=== PATIENT | female | born 1960 | race Caucasian/White ===

== ENCOUNTER → 2018-03-17 11:01 | Outpatient (CLI) | payer OTHER, SELFPAY ==
[2018-03-17 12:48] LABS: Anion Gap 7 (5-15); BUN 10 mg/dL (7-18); BUN/Creat Ratio 13.4 RATIO (10-20); Calcium,Total 9.2 mg/dL (8.5-10.1); Chloride 104 mmol/L (98-107); Creatinine, Serum 0.75 mg/dL (0.55-1.02); EST Glomerular Filtration Rate 85 mL/min (>60); Est Glom Filt Rate - Afr Amer 102 mL/min (>60); Glucose 233 mg/dL (74-106); Potassium 3.6 mmol/L (3.5-5.1); Sodium Level 139 mmol/L (136-145); Thyroid Stim Hormone (TSH) 1.32 uIU/mL (0.358-3.74)
== END ==
PROVIDERS: Visit Provider Psychiatry & Neurology Psychiatry
DX: Z79.899 Other long term (current) drug therapy (principal)
CPT/HCPCS: 36415; 80048; 80178; 82140; 84443

== ENCOUNTER → 2018-05-02 14:48 | Outpatient (CLI) | payer OTHER, SELFPAY ==
--- NOTE | 2018-05-02 14:48 | DT_ITS ---
This patient was seen during an EMR downtime April 28, 2018 - May 05, 2018. This patient may have a combination of paper and electronic documentation or all paper documentation. All documentation is viewable within the e-chart portion of [employer] for each patient visit.
[2018-05-02 19:21] LABS: Hematocrit 34.5 % (37-47); Hemoglobin 10.6 g/dl (12.0-15.0); Mean Corp Hgb Conc 30.7 g/gl (32-36); Mean Corpuscular Hgb 26.7 pg (27.0-32.0); Mean Corpuscular Volume 86.9 fL (81-99); Mean Platelet Vol. 10.2 fl (6.2-12.0); Neutrophil % 63.8 % (47-70); POSITIVE COUNT NO; POSITIVE DIFFERENTIAL NO; POSITIVE MORPHOLOGY NO; Platelet Count 128 K/mm3 (150-450); RBC Distribution Width CV 16.9 % (11.6-14.6); RBC Distribution Width SD 52.4 fl (35.1-43.9); Red Blood Count 3.97 M/mm3 (4.2-5.4)
[2018-05-02 19:22] LABS: Absolute Lymphocyte Count 1.33 X10^3/ul (0.83-4.51); Absolute Neutrophil Count 3.2 X10^3/uL (2.0-7.7); Basophil# 0.02 X10^3/uL; Basophil% 0.4 % (0-1); Eosinophil# 0.11 X10^3/uL; Eosinophils% 2.2 % (0-5); Lymphocyte # 1.33 X10^3/ul (4.0); Lymphocyte % 26.4 % (19-41); Monocyte# 0.34 X10^3/uL; Monocyte% 6.8 % (0-10); Neutrophil # 3.21 X10^3/uL (2.7-7.7)
[2018-05-05 18:01] LABS: ALB/GLOB Ratio 0.9 RATIO (0.9-2.4); AST(SGOT) 35 U/L (15-37); Alanine Aminotransfer ALT/SGPT 30 U/L (13-56); Albumin, Serum 3.9 g/dL (3.2-5.0); Alkaline Phosphatase 108 U/L (45-117); Anion Gap 8 (5-15); BUN 13 mg/dL (7-18); BUN/Creat Ratio 19.7 RATIO (10-20); Calcium,Total 9.4 mg/dL (8.5-10.1); Chloride 106 mmol/L (98-107); Creatinine, Serum 0.66 mg/dL (0.55-1.02); EST Glomerular Filtration Rate 98 mL/min (>60); Est Glom Filt Rate - Afr Amer 119 mL/min (>60); Globulin 4.3 g/dL (2.2-4.2); Glucose 184 mg/dL (74-106); Protein, Total 8.2 g/dL (6.4-8.2); Sodium Level 142 mmol/L (136-145)
== END ==
PROVIDERS: Family Provider Family Medicine; PCP Family Medicine; Visit Provider Internal Medicine Rheumatology
DX: L40.59 Other psoriatic arthropathy (principal); M79.7 Fibromyalgia; R76.8 Other specified abnormal immunological findings in serum; L40.8 Other psoriasis; M21.40 Flat foot [pes planus] (acquired), unspecified foot; K21.9 Gastro-esophageal reflux disease without esophagitis; K76.0 Fatty (change of) liver, not elsewhere classified; I10 Essential (primary) hypertension; E11.9 Type 2 diabetes mellitus without complications; I48.0 Paroxysmal atrial fibrillation; F31.9 Bipolar disorder, unspecified; N39.46 Mixed incontinence
CPT/HCPCS: 36415; 80053; 85025

== ENCOUNTER → 2018-08-20 10:31 | Outpatient (CLI) | payer OTHER, SELFPAY ==
[2018-08-20 12:20] LABS: Absolute Lymphocyte Count 1.31 X10^3/ul (0.83-4.51); Absolute Neutrophil Count 3.1 X10^3/uL (2.0-7.7); Basophil# 0.01 X10^3/uL; Basophil% 0.2 % (0-1); Eosinophil# 0.13 X10^3/uL; Eosinophils% 2.7 % (0-5); Hematocrit 36.5 % (37-47); Hemoglobin 11.8 g/dl (12.0-15.0); Lymphocyte # 1.31 X10^3/ul (4.0); Lymphocyte % 26.9 % (19-41); Mean Corp Hgb Conc 32.3 g/gl (32-36); Mean Corpuscular Hgb 29.4 pg (27.0-32.0); Monocyte# 0.29 X10^3/uL; Neutrophil # 3.12 X10^3/uL (2.7-7.7); Platelet Count 122 K/mm3 (150-450); RBC Distribution Width CV 15.3 % (11.6-14.6); RBC Distribution Width SD 50.4 fl (35.1-43.9); Red Blood Count 4.01 M/mm3 (4.2-5.4); White Blood Count 4.9 K/mm3 (4.4-11.0)
[2018-08-20 12:23] LABS: POSITIVE COUNT NO; POSITIVE DIFFERENTIAL NO; POSITIVE MORPHOLOGY NO
[2018-08-20 12:34] LABS: AST(SGOT) 30 U/L (15-37); Alanine Aminotransfer ALT/SGPT 28 U/L (13-56); Alkaline Phosphatase 123 U/L (45-117); Anion Gap 8 (5-15); BUN 11 mg/dL (7-18); BUN/Creat Ratio 15.9 RATIO (10-20); Calcium,Total 9.5 mg/dL (8.5-10.1); Chloride 106 mmol/L (98-107); Creatinine, Serum 0.69 mg/dL (0.55-1.02); EST Glomerular Filtration Rate 92 mL/min (>60); Est Glom Filt Rate - Afr Amer 112 mL/min (>60); Globulin 4.2 g/dL (2.2-4.2); Glucose 142 mg/dL (74-106); Protein, Total 8.2 g/dL (6.4-8.2); Sodium Level 140 mmol/L (136-145)
== END ==
PROVIDERS: Family Provider Family Medicine; PCP Family Medicine; Referring Provider Internal Medicine Rheumatology; Visit Provider Internal Medicine Rheumatology
DX: L40.59 Other psoriatic arthropathy (principal); M79.7 Fibromyalgia; R76.8 Other specified abnormal immunological findings in serum; L40.8 Other psoriasis; M25.512 Pain in left shoulder; M21.40 Flat foot [pes planus] (acquired), unspecified foot; K21.9 Gastro-esophageal reflux disease without esophagitis; K76.0 Fatty (change of) liver, not elsewhere classified; I10 Essential (primary) hypertension; E11.9 Type 2 diabetes mellitus without complications; I48.0 Paroxysmal atrial fibrillation; F31.9 Bipolar disorder, unspecified; N39.46 Mixed incontinence
CPT/HCPCS: 36415; 80053; 85025

== ENCOUNTER 2018-10-20 13:36 | Emergency (ER) | payer OTHER, SELFPAY ==
[2018-10-20 13:36] VITALS: BP 163/72; PULSE 57; RESP 16; TEMP 35.9; O2SAT 97; BMI 40.7
--- NOTE | 2018-10-20 14:26 | CT_ITS ---
STUDY: CT BRAIN WITHOUT CONTRAST REASON FOR EXAM: Female, 58 years old. Headaches. Vomiting. Decreased level of consciousness. History of recent subdural hematoma. RADIATION DOSAGE (If Supplied By Facility): CTDIvol = ( 60.81 ) mGy, DLP = ( 1997.33 ) mGycm TECHNIQUE: Transaxial CT imaging of the brain was performed without administration of intravenous contrast material. Individualized dose optimization techniques were used for this CT. COMPARISON: None. FINDINGS: There is evidence of an acute epidural hematoma measuring 2.7 cm by 1.1 cm overlying the posterior left parietal occipital lobe. There is also evidence of a small amount of subarachnoid bleed in the right sylvian fissure. Also evidence of a tentorial subdural hematoma. Normal soft tissue structures. There is hyperostosis frontalis internus. There is evidence of a decreased sulcal markings suggests a possible increased intracranial pressure. Normal white matter tracts of the cerebral hemispheres. Decreased attenuation in the left basal ganglion. Ischemic changes should be ruled out. Normal brainstem. Normal cerebellum. Normal visualized paranasal sinuses. CT/Brain/Head without Contrast IMPRESSION: There is evidence of an acute epidural hematoma overlying the left posterior parietal occipital lobes measuring 1.1 cm x 2.7 cm. There is evidence of a subdural of the tentorium as well as subarachnoid hemorrhage. Decreased attenuation is seen in the left basal ganglion. Changes should BE ruled out. Findings suggestive of increased intracranial pressure. N.B. : The above information has been verbally conveyed by Ankur Ferrara MD to Dylon Owens MD, on 10/20/2018 15:14:10 (ET). Electronically Signed: Ankur Ferrara MD at 15:15 EST Tel [phone], Service support ,
[2018-10-20] MEDS: Ondansetron 4 MG/2 ML Vial IV (14:32)
[2018-10-20 14:43] LABS: Absolute Lymphocyte Count 1.42 X10^3/ul (0.83-4.51); Absolute Neutrophil Count 5.9 X10^3/uL (2.0-7.7); Eosinophils% 1.3 % (0-5); Hematocrit 39.5 % (37-47); Hemoglobin 13.1 g/dl (12.0-15.0); Lymphocyte # 1.42 X10^3/ul (4.0); Lymphocyte % 18.2 % (19-41); Mean Corp Hgb Conc 33.2 g/gl (32-36); Mean Corpuscular Hgb 29.3 pg (27.0-32.0); Mean Corpuscular Volume 88.4 fL (81-99); Mean Platelet Vol. 9.9 fl (6.2-12.0); Monocyte% 5.1 % (0-10); Neutrophil # 5.88 X10^3/uL (2.7-7.7); Neutrophil % 75.3 % (47-70); POSITIVE COUNT NO; POSITIVE DIFFERENTIAL NO; POSITIVE MORPHOLOGY NO; Platelet Count 131 K/mm3 (150-450); RBC Distribution Width CV 13.9 % (11.6-14.6); RBC Distribution Width SD 44.5 fl (35.1-43.9); Red Blood Count 4.47 M/mm3 (4.2-5.4); White Blood Count 7.8 K/mm3 (4.4-11.0)
[2018-10-20 14:48] LABS: Anion Gap 8 (5-15); BUN 10 mg/dL (7-18); BUN/Creat Ratio 16.8 RATIO (10-20); Calcium,Total 9.8 mg/dL (8.5-10.1); Chloride 107 mmol/L (98-107); EST Glomerular Filtration Rate 110 mL/min (>60); Est Glom Filt Rate - Afr Amer 133 mL/min (>60); Estimated Creatinine Clearance 90.84 ml/min; Glucose 143 mg/dL (74-106); Potassium 3.8 mmol/L (3.5-5.1); Sodium Level 139 mmol/L (136-145)
[2018-10-20 15:28] VITALS: BP 119/53; PULSE 54; RESP 17; O2SAT 96
[2018-10-20 15:33] LABS: International Normalized Ratio 1.1
[2018-10-20 15:34] LABS: Partial Thromboplast Time 34.3 Seconds (24.1-36.2)
[2018-10-20] MEDS: Mannitol 50gm/250ml 50 GM in Premixed Bag 1 BAG IV (15:51)
[2018-10-20 16:30] VITALS: BP 114/66; PULSE 59; RESP 17; O2SAT 96
[2018-10-20 16:42] VITALS: BP 114/66; PULSE 56; RESP 18; TEMP 36.1; O2SAT 97
[2018-10-20 17:17] VITALS: BP 105/46; PULSE 57; RESP 17; O2SAT 95
--- NOTE | 2018-10-20 17:29 | ED.RN ---
UNIT AT [facility] CONTACTED AND INFORMED OF PT DEPARTING TO [facility].
--- NOTE | 2018-11-02 06:57 | ED.VISSUMM ---
- ER Visit Summary Date of Service: 11/02/18 Chief Complaint: Severe headache and decreased level of consciousness History of Present Illness: The patient is a 58 F who was seen on the date of service October 20, 2018. Patient's main complaint is severe headache. Daughter is concerned because she is not as alert and active. Week prior she was admitted to [facility] for a subdural hematoma. She had a subdural of the tentorium. Repeat CT revealed no change and she was discharged to home. The evening prior to today's visit patient was seen at another facility. She had a CAT scan and daughter states they were told there was no change. Patient is not a good informant. She denied double vision or loss of vision. She denied change in her vision. She denies trouble with speech or swallowing. She denies chest pain, orthopnea, PND or dyspnea on exertion. She denies shortness of breath or cough. She has no auditory symptoms. She denies congestion, postnasal drainage or rhinorrhea. She does complain of mild neck pain. She denies neck stiffness. She does report nausea without vomiting diarrhea. She denied urologic symptoms. Daughter states she is having difficulty ambulating. Physical Examination: Vital signs noted and blood pressure is elevated 163/70. Head is atraumatic normocephalic. Pupils equal round reactive paradoxic muscle intact. There is no subconjunctival hemorrhage noted. Sclerae nonicteric. There is no hemotympanum. There is no CSF otorrhea or rhinorrhea. Neck is supple. Heart is regular. Lungs are clear to auscultation with room air bilaterally. Abdomen is soft nontender. Bowel sounds are present normal. Back is nontender. Examination of the lower extremity and upper extremities unremarkable. Skin reveals no rash or evidence of trauma. She is not alert nor she oriented. Reflexes are not normal. She has bilateral Babinski sign. Sensation and motor are intact. Finger-nose to finger was performed adequately. She was not ambulated. Affect is flat Test Results: CBC unremarkable. Glucose elevated 143. CT reveals an epidural hematoma, a sub-dural hematoma the tentorium, a subarachnoid hemorrhage and a left basal ganglion infarct. Emergency Department Course and Treatment: Because of patient's complaint of severe headache change in mental status and history of frequent falls and recent diagnosis of subdural hematoma a CT of the head was obtained. Patient was made n.p.o. Appropriate blood work was obtained. Treatment Plan: After reviewing CT and determining that the epidural and subarachnoid hemorrhage or new [facility] was contacted. Spoke with the nurse at transfer center. Eventually spoke with the neurosurgeon/trauma surgeon who was aware of her and accepted her. Because of evidence of increased intracranial pressure she did receive 0.5 mg/kg of mannitol. Disposition: Transfer neuro ICU [facility] Impression: 1. Epidural hematoma 2. Subarachnoid hemorrhage 3. Left basal ganglion infarct, new finding 4. Tentorial subdural hematoma, stable This note was generated with [employer] dictation software. It may contain incorrect words, spelling, and punctuation that were not noted in review of the chart prior to signing ED Disposition - Plan for ED Patient: Disposition: [facility] Chief Complaint: Nausea/Vomiting Referrals: Yandel Cabrera MD [Primary Care Provider] -
--- NOTE | 2018-11-02 07:03 | ED.DCSUM_ITS ---
- ER Visit Summary Date of Service: 11/02/18 Chief Complaint: Severe headache and decreased level of consciousness History of Present Illness: The patient is a 58 F who was seen on the date of service October 20, 2018. Patient's main complaint is severe headache. Daughter is concerned because she is not as alert and active. Week prior she was admitted to [facility] for a subdural hematoma. She had a subdural of the tentorium. Repeat CT revealed no change and she was discharged to home. The evening prior to today's visit patient was seen at another facility. She had a CAT scan and daughter states they were told there was no change. Patient is not a good informant. She denied double vision or loss of vision. She denied change in her vision. She denies trouble with speech or swallowing. She denies chest pain, orthopnea, PND or dyspnea on exertion. She denies shortness of breath or cough. She has no auditory symptoms. She denies congestion, postnasal drainage or rhinorrhea. She does complain of mild neck pain. She denies neck stiffness. She does report nausea without vomiting diarrhea. She denied urologic symptoms. Daughter states she is having difficulty ambulating. Physical Examination: Vital signs noted and blood pressure is elevated 163/70. Head is atraumatic normocephalic. Pupils equal round reactive paradoxic muscle intact. There is no subconjunctival hemorrhage noted. Sclerae nonicteric. There is no hemotympanum. There is no CSF otorrhea or rhinorrhea. Neck is supple. Heart is regular. Lungs are clear to auscultation with room air bilaterally. Abdomen is soft nontender. Bowel sounds are present normal. Back is nontender. Examination of the lower extremity and upper extremities unremarkable. Skin reveals no rash or evidence of trauma. She is not alert nor she oriented. Reflexes are not normal. She has bilateral Babinski sign. Sensation and motor are intact. Finger-nose to finger was performed adequately. She was not ambulated. Affect is flat Test Results: CBC unremarkable. Glucose elevated 143. CT reveals an epidural hematoma, a sub-dural hematoma the tentorium, a subarachnoid hemorrhage and a left basal ganglion infarct. Emergency Department Course and Treatment: Because of patient's complaint of severe headache change in mental status and history of frequent falls and recent diagnosis of subdural hematoma a CT of the head was obtained. Patient was made n.p.o. Appropriate blood work was obtained. Treatment Plan: After reviewing CT and determining that the epidural and subarachnoid hemorrhage or new [facility] was contacted. Spoke with the nurse at transfer center. Eventually spoke with the neurosurgeon/trauma surgeon who was aware of her and accepted her. Because of evidence of increased intracranial pressure she did receive 0.5 mg/kg of mannitol. Disposition: Transfer neuro ICU [facility] Impression: 1. Epidural hematoma 2. Subarachnoid hemorrhage 3. Left basal ganglion infarct, new finding 4. Tentorial subdural hematoma, stable This note was generated with [employer] dictation software. It may contain incorrect words, spelling, and punctuation that were not noted in review of the chart prior to signing ED Disposition - Plan for ED Patient: Disposition: [facility] Chief Complaint: Nausea/Vomiting Referrals: Yandel Cabrera MD [Primary Care Provider] -
--- OUTSIDE RECORDS SUMMARY | 2018-12-02 12:47 | XMS RPT_ITS ---
:1960 Author Organization OHIP Support Name Relationship Address Phone CHRISTINA GUERRERO Unavailable [address] Unavailable [place], [place] [phone] NOT GIVEN Unavailable Unavailable Unavailable DARVIN PLASCENCIA Unavailable Unavailable + CHRISTINA GUERRERO Unavailable [address] Unavailable [place], [place] [phone] NOT GIVEN Unavailable Unavailable Unavailable DARVIN PLASCENCIA Unavailable Unavailable + LEIGHA GARCIA Unavailable Unavailable + CHRISTINA GUERRERO Unavailable [address] + [place] [address] JOANNE FERGUSON Unavailable [address] + [place] [address] R Unavailable Unavailable Unavailable CHRISTINA GUERRERO Unavailable [address] Unavailable [place], [place] [phone] NOT GIVEN Unavailable Unavailable Unavailable DARVIN PLASCENCIA Unavailable Unavailable + CHRISTINA GUERRERO Unavailable [address] Unavailable [place], [place] [phone] NOT GIVEN Unavailable Unavailable Unavailable DARVIN PLASCENCIA Unavailable Unavailable + CHRISTINA GUERRERO Unavailable [address] Unavailable [place], [place] [phone] NOT GIVEN Unavailable Unavailable Unavailable DARVIN PLASCENCIA Unavailable Unavailable + CHRISTINA GUERRERO Unavailable [address] + [place] [address] JOANNE FERGUSON Unavailable [address] + [place] [address] R Unavailable Unavailable Unavailable CHRISTINA GUERRERO Unavailable [address] Unavailable [place], [place] [phone] NOT GIVEN Unavailable Unavailable Unavailable DARVIN PLASCENCIA Unavailable Unavailable + CHRISTINA GUERRERO Unavailable [address] Unavailable [place], [place] [phone] NOT GIVEN Unavailable Unavailable Unavailable DARVIN PLASCENCIA Unavailable Unavailable + CHRISTINA GUERRERO Unavailable [address] Unavailable [place], [place] [phone] NOT GIVEN Unavailable Unavailable Unavailable DARVIN PLASCENCIA Unavailable Unavailable + CHRISTINA GUERRERO Unavailable [address] + [place] [address] JOANNE FERGUSON Unavailable [address] + [place] [address] R Unavailable Unavailable Unavailable CHRISTINA GUERRERO Unavailable [address] + [place] [address] FERGUSON JOANNE Unavailable [address] + [place] [address] R Unavailable Unavailable Unavailable CHRISTINA GUERRERO Unavailable [address] Unavailable [place], [place] [phone] NOT GIVEN Unavailable [place] [address] DARVIN TOLBERT Unavailable Unavailable + Care Team Providers Name Role Phone Aryan Jean Attending Unavailable Primay Care Physicia, No Primary Care Unavailable Vellanki, Abigail Attending Unavailable Vellanki, Abigail Referring Unavailable [facility] Primary Care Unavailable Lucia, Abigail Attending Unavailable Lucia, Abigail Referring Unavailable [facility] Primary Care Unavailable [facility] Primary Care Unavailable Owens, Dylon Attending Unavailable WILLIAM WYNN DO Admitting Unavailable WILLIAM WYNN DO Attending Unavailable WILLIAM WYNN DO Primary Care Unavailable NO, DOCTOR ON Referring Unavailable NO, DOCTOR ON Consulting Unavailable ARYAN JEAN Admitting Unavailable ARYAN JEAN Attending Unavailable ARYAN JEAN [facility] Unavailable PROVIDER, UNKNOWN Consulting Unavailable BETH BYRD MD Admitting Unavailable RAYSA, BETH BARRON Attending Unavailable BETH BYRD MD Primary Care Un[facility] Unavailable PROVIDER, UNKNOWN Consulting Unavailable BETH BYRD MD Admitting Unavailable BRYCEIVBETH MCCLENDON MD Attending Unavailable BETH BYRD MD Primary Care Unavailable ELEAZAR, YANDEL Consulting Unavailable PROVIDER, UNKNOWN Consulting Unavailable BETH BYRD MD Admitting Unavailable BETH BYRD MD Attending Unavailable BETH BYRD MD Primary Care Unavailable ELEAZAR, YANDEL Consulting Unavailable PROVIDER, UNKNOWN Consulting Unavailable HABERBERGER, FCO M Admitting Unavailable HABERBERGER, FCO M Attending Unavailable ELEAZAR, YANDEL Referring Unavailable HABERBERGER, FCO M Primary Care Unavailable ELEAZAR, YANDEL Consulting Unavailable PROVIDER, UNKNOWN Consulting Unavailable JOHN FANG Admitting Unavailable JOHN FANG Attending Unavailable JOHN FANG Primary Care Unavailable ELEAZAR, YANDEL Consulting Unavailable ELEAZAR, YANDEL Referring Unavailable PROVIDER, UNKNOWN Consulting Unavailable KATHLEEN BONILLA MD Admitting Unavailable KATHLEEN BONILLA MD Attending Unavailable KATHLEEN BONILLA MD Primary Care Unavailable ELEAZAR, YANDEL Consulting Unavailable PROVIDER, UNKNOWN Consulting Unavailable HABERBERGER, FCO M Admitting Unavailable ROSAURA LIMAMY M Attending Unavailable ELEAZAR, YANDEL Referring Unavailable HABERBERGER FCO M Primary Care Unavailable ELEAZAR, YANDEL Consulting Unavailable PROVIDER, UNKNOWN Consulting Unavailable HOLDEN ROSENBAUM Attending Unavailable HOLDEN ROSENBAUM Referring Unavailable MUAKKASSA, FARID ARRON Admitting Unavailable MUAKKASSA, FARID ARRON Attending Unavailable ONWUZULIAMBER, MELISSA Consulting Unavailable ONWUZULIKE, MELISSA Admitting Unavailable ONWUZULIKE, MELISSA Consulting Unavailable CHUCK DELGADO Attending Unavailable YANDEL BUSH MD Attending Unavailable HUGO BARRON., DR. RG Primary Care Unavailable BEKA BENAVIDES Attending Unavailable JAMAL SCHNEIDER Referring Unavailable MILLY HAWLEY ([facility]) Attending Unavailable JAMAL SCHNEIDER Referring Unavailable JAMAL SCHNEIDER Referring Unavailable JAMAL SCHNEIDER Referring Unavailable JAMAL SCHNEIDER Referring Unavailable YANDEL BUSH Attending Unavailable MILLY HAWLEY ([facility]) Referring Unavailable YANDEL BUSH Referring Unavailable ELEAZARYANDEL Referring Unavailable ELEAZARYANDEL Referring Unavailable ELEAZARYANDEL Dennis Referring Unavailable ELEAZARYANDEL Dennis Referring Unavailable YANDEL BUSH Attending Unavailable YANDEL BUSH Referring Unavailable YANDEL BUSH Referring Unavailable YANDEL BUSH Attending Unavailable YANDEL BUSH Referring Unavailable YANDEL BUSH Referring Unavailable Yandel Bush MD Primary Care Unavailable CHUCK DELGADO Attending Unavailable ONWUZAARONKE, MELISSA Consulting Unavailable ONWUZULIKE, MELISSA Admitting Unavailable MUAKKASSA, FARID F Admitting Unavailable MUAKKASSA, FARID F Attending Unavailable Yandel Bush MD Primary Care Unavailable CHANTALE, MELISSA Consulting Unavailable Yandel Bush MD Primary Care Unavailable HOLDEN ROSENBAUM Referring Unavailable HOLDEN ROSENBAUM Attending Unavailable PROBLEMS PROBLEMS DATE TYPE CONDITION / CODE ATTENDING STATUS SOURCE 10/20/2018 Active Bipolar disorder, ELRIFAI, Active [place] unspecified / [facility] Other F31.9(ICD-10) [place] Repository 10/20/2018 Admitting Unknown / ELRIFAI, Active [place] [facility] diagnosis UNK(Unknown) [facility] Repository 10/13/2018 Active Traumatic subdural MUAKKASSA, Active [place] [facility] Other loss of [place] consciousness of Repository unspecified duration, initial encounter / S06.5X9A(ICD-10) 10/09/2018 Active Thrombocytopenia, NA Active [place] unspecified / [facility] Main D69.6(ICD-10) [place] Repository 10/09/2018 Active Hypercalcemia / NA Active [place] E83.52(ICD-10) Clinic Main [place] Repository 09/05/2018 Principle Fatty (change of) HLIVKO, Active [place] Diagnosis liver, not BETH BARRON [facility] classified / Repository K760(ICD-10) 07/24/2018 Admitting Hepatomegaly with HLIVKO, Active [place] Diagnosis splenomegaly, not BETH BARRON [facility] classified / Repository R162(ICD-10) 07/24/2018 Principle Hepatomegaly with HLIVKO, Active [place] Diagnosis splenomegaly, not BETH BARRON [facility] classified / Repository R162(ICD-10) 07/08/2018 Active Unknown / YANDEL BUSH Active [place] UNK(Unknown) Clinic Main [place] Repository 07/02/2018 Active Anemia, unspecified NA Active [place] / D64.9(ICD-10) Clinic Main [place] Rep[facility] 03/04/2012 Active Paroxysmal atrial NA Active [place] fibrillation / [facility] Main I48.0(ICD-10) [place] Repository 05/21/2018 Unknown L40.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 / [facility] L40.59(ICD-10) Repository 04/11/2018 Active Cardiac murmur, NA Active [place] unspecified / [facility] Main R01.1(ICD-10) [place] Repository 04/10/2018 Active Chest pain, HOLDEN ROSENBAUM Active [place] unspecified / E Clinic Other R07.9(ICD-10) [place] Repository 04/04/2018 Active Iron deficiency NA Active [place] anemia, unspecified Clinic Main / D50.9(ICD-10) [place] Repository 04/01/2018 Active Other snf NA Active [place] (current) drug Clinic Main therapy / [place] Z79.899(ICD-10) Repository 12/27/2017 Active Encounter for NA Active [place] screening mammogram Clinic Main for malignant [place] neoplasm of breast Repository / Z12.31(ICD-10) 02/05/2012 Active Fatty (change of) NA Active [place] liver, not Clinic Main elsewhere [place] classified / Repository K76.0(ICD-10) 12/27/2017 Active Type 2 diabetes NA Active [place] mellitus 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 [place] neuropathy, Repository unspecified / E11.40(ICD-10) 12/27/2017 Active Encounter for NA Active [place] screening for other Clinic Main disorder / [place] Z13.89(ICD-10) Repository 12/27/2017 Active Abnormal results of NA Active [place] liver function Clinic [facility] studies / [place] R94.5(ICD-10) Repository 12/27/2017 Active Type 2 diabetes NA Active [place] mellitus without Clinic Main complications / [place] E11.9(ICD-10) Repository PROCEDURES PROCEDURES No Procedure Records FoundRESULTS RESULTS CBC (NO DIFF) Collected: 11/10/2018 Status: F Source: [facility] 5:29 AM [facility] REPOSITORY TYPE CODE TESTS RESULT OUT OF RANGE REFERENCE UNITS LAB CBC (NO DIFF)(LOINC ) CBC (NO DIFF) Result Comment: CBC(WITHOUT DIFFERENTIAL) LAB WBC(LOINC) 4.5 - 10.8 x 10EE3/UL WBC 7.0 LAB RBC(LOINC) 4.10 - x 10EE6/UL 5.30 RBC Low 4.07 LAB HEMOGLOBIN(LOINC) 12.0 - g/dl 16.0 HEMOGLOBIN 12.1 LAB HEMATOCRIT(LOINC) 34.0 - % 46.0 HEMATOCRIT 34.1 LAB MCV(LOINC) 80 - 99 fl MCV 84 LAB MCH(LOINC) 27 - 33 pg MCH 30 LAB MCHC(LOINC) 32 - 36 X10 3 MCHC 36 LAB RDW/CV(LOINC) 12.0 - % 15.6 RDW/CV 14.0 LAB PLATELET(LOINC) 150 - 450 x10EE3/UL PLATELET Low 129 LAB MPV(LOINC) 6.6 - 10.5 fl MPV 8.5 Result Comment: {CB] Performed By: #### [id number] #### [facility],[address] [place] [address] LITHIUM Collected: 11/10/2018 Status: F Source: [facility] 5:29 AM [facility] REPOSITORY TYPE CODE TESTS RESULT OUT OF REFERENCE UNITS RANGE LAB LITHIUM(CARA 0.6 - 1.2 mmol/L NC) LITHIUM 0.9 Performed By: #### [id number] #### [place] [address] URINALYSIS Collected: 11/07/2018 Status: F [facility] REPOSITORY TYPE CODE TESTS RESULT OUT OF REFERENCE UNITS RANGE LAB URINALYSIS (LOINC) URINALYSIS Result Comment: URINALYSIS LAB Specimen Type(LOINC) Specimen Type Clean catch LAB Color(LOINC) NORMAL: YELLOW Color YELLOW LAB Clarity(LOINC) NORMAL: CLEAR Clarity very cloudy LAB ph(LOINC) NORMAL: 5.0-8.0 ph 6 LAB Protein(LOINC) NORMAL: NEGATIVE Protein Abnormal 100 LAB Glucose(LOINC) NORMAL: NORMAL Glucose Abnormal 100 LAB Ketone(LOINC) NORMAL: NEGATIVE Ketone Abnormal 50 LAB Bilirubin(LOINC) NORMAL: NEGATIVE Bilirubin Abnormal 3 LAB Blood(LOINC) NORMAL: NEGATIVE Blood Abnormal 10 LAB Urobilinog(LOINC) NORMAL: NORMAL Urobilinog Abnormal 4 LAB Sp [place](LOINC) NORMAL: 1.010-1.030 Sp [place] 1.025 LAB Nitrite(LOINC) NORMAL: NEGATIVE Nitrite NEG LAB Leukocytes(LOINC) NORMAL: NEGATIVE Leukocytes Abnormal 25 LAB Microscopic(LOINC ) Microscopic SEE BELOW Result Comment: MICROSCOPIC LAB Wbc(LOINC) 0-5/hpf Wbc NONE LAB Rbc(LOINC) 0-3/hpf Rbc NONE LAB Casts(LOINC) Casts NONE LAB Crystals(LOINC) Crystals NONE LAB Amorphous(LOINC) Amorphous 3+ LAB Bacteria(LOINC) Bacteria NONE LAB Epi Cells(LOINC) Epi Cells OCC LAB Mucous(LOINC) Mucous NONE LAB Yeast(LOINC) Yeast NONE Performed By: #### [id number] #### [facility],[address] [place] [address] CBC Collected: 11/07/2018 Status: F Source: [facility] 2:40 PM [facility] REPOSITORY TYPE CODE TESTS RESULT OUT OF RANGE REFERENCE UNITS LAB CBC(LOINC) CBC Result Comment: CBC-COMPLETE BLOOD COUNT LAB WBC(LOINC) 4.5 - 10.8 x 10EE3/UL WBC High 18.4 LAB RBC(LOINC) 4.10 - x 10EE6/UL 5.30 RBC 5.09 LAB HEMOGLOBIN(LOINC 12.0 - g/dl ) 16.0 HEMOGLOBIN 14.8 LAB HEMATOCRIT(LOINC 34.0 - % ) 46.0 HEMATOCRIT 42.9 LAB MCV(LOINC) 80 - 99 fl MCV 84 LAB MCH(LOINC) 27 - 33 pg MCH 29 LAB MCHC(LOINC) 32 - 36 X10 3 MCHC 35 LAB RDW/CV(LOINC) 12.0 - % 15.6 RDW/CV 13.7 LAB PLATELET(LOINC) 150 - 450 x10EE3/UL PLATELET 207 LAB MPV(LOINC) 6.6 - 10.5 fl MPV 8.6 Result Comment: AUTOMATED DIFFERENTIAL LAB NEUT %(LOINC) 46.0 - 76.0 % NEUT % High 80.3 LAB LYMPH %(LOINC) 20.0 - 45.0 % Low LYMPH % 12.0 LAB MONOS %(LOINC) 0.0 - 10.0 % MONOS % 4.9 LAB EO %(LOINC) 0.0 - 7.0 % EO % 2.5 LAB BASO %(LOINC) 0.0 - 2.0 % BASO % 0.3 LAB Lymph #(LOINC) 0.80 - 2.80 x10EE3/U L Lymph # 2.20 LAB Neut #(LOINC) 1.50 - 7.10 x10EE3/U L Neut # High 14.80 LAB Walsh #(LOINC) 0.20 - 1.00 x10EE3/U L Walsh # 0.90 LAB EO #(LOINC) 0.00 - 0.50 x10EE3/U L EO # 0.50 LAB Baso #(LOINC) 0.00 - 0.10 x10EE3/U L Baso # 0.10 LAB MANUAL DIFF(LOINC) MANUAL DIFF N/A LAB MORPHOLOGY(LOINC ) MORPHOLOGY N/A Result Comment: {CD] Performed By: #### [id number] #### [facility],[address] [place] [address] CMP WITH EGFR Collected: 11/07/2018 Status: F Source: [facility] 2:40 PM [facility] REPOSITORY TYPE CODE TESTS RESULT OUT OF RANGE REFERENCE UNITS LAB CMP with eGFR(INC) CMP with eGFR Result Comment: COMPREHENSIVE METABOLIC PANEL LAB SODIUM(LOINC) 136 - 145 mmol/l SODIUM Low 135 LAB POTASSIUM(LOINC) 3.5 - 5.1 mmol/L Low POTASSIUM 3.1 LAB CHLORIDE(LOINC) 98 - 107 mmol/L CHLORIDE Low 96 LAB CO2(LOINC) 21.0 - mmol/L 31.0 CO2 24.5 LAB GLUCOSE(LOINC) 74 - 106 mg/dl GLUCOSE High 125 LAB BUN(LOINC) 6 - 20 mg/dl BUN High 28 LAB CREATININE(LOINC) 0.6 - 1.2 mg/dl CREATININE 0.8 LAB AST/SGOT(LOINC) 13 - 39 U/L AST/SGOT 28 LAB ALK PHOS(LOINC) 38 - 126 U/L ALK PHOS High 128 LAB CALCIUM(LOINC) 8.6 - mg/dl 10.2 CALCIUM High 11.2 LAB TOTAL 6.4 - 8.3 g/dl PROTEIN(LOINC) TOTAL High PROTEIN 8.8 LAB ALBUMIN(LOINC) 3.4 - 4.8 g/dL ALBUMIN 4.7 LAB GLOBULIN(LOINC) 1.5 - 3.8 G/DL GLOBULIN High 4.1 LAB A/G RATIO(LOINC) 0.9 - 1.6 A/G RATIO 1.1 LAB TOTAL BILI(LOINC) 0.0 - 1.5 mg/dl TOTAL BILI 0.9 LAB B/C RATIO(LOINC) 0 - 30 ratio B/C High RATIO 35 LAB ALT/SGPT(LOINC) 8 - 35 U/L ALT/SGPT 15 LAB ANION GAP(LOINC) 10 - 20 mmol/L ANION GAP 18 LAB AGE(LOINC) years AGE 58 LAB eGFR(LOINC) 60 - 999 ML/MINUTE eGFR >60 LAB eGFR(AA)(LOINC) 60 - 999 ML/MINUTE eGFR(AA) >60 Result Comment: ACCORDING TO THE NATIONAL KIDNEY DISEASE EDUCATION PROGRAM(NKDE), A NORMAL eGFR IS A VALUE GREATER THAN OR EQUAL TO 60 ML/MIN/1.73 SQ METERS. CHRONIC KIDNEY DISEASE: <60mL/MIN/1.73 SQ METERS KIDNEY FAILURE: <15mL/MIN/1.73 SQ METERS THIS TEST SHOULD ONLY BE USED FOR PATIENTS 18 YEARS OF AGE AND OLDER. Performed By: #### [id number] #### [place] [address] LITHIUM Collected: 11/07/2018 Status: F Source: [facility] 2:40 PM [facility] REPOSITORY TYPE CODE TESTS RESULT OUT OF REFERENCE UNITS RANGE LAB LITHIUM(CARA 0.6 - 1.2 mmol/L NC) High LITHIUM 2.0 Performed By: #### [id number] #### [place] [address] EMERGENCY DEPARTMENT Observed: 11/02/2018 Status: F Source: [place] [facility] 7:04 AM [facility] REPOSITORY [facility] Medical Records Department [address] [place] [address] Emergency Department Summary 11/02/18 0657 MR#: [id number] Acct: [id number] Name: ELLI GUERRERO Rep #: [id number] : 1960 58 From: Dylon Owens MD PCP: Yandel Bush MD Status: DEP ER - ER Visit Summary Date of Service: 11/02/18 Chief Complaint: Severe headache and decreased level of consciousness History of Present Illness: The patient is a 58 F who was seen on the date of service October 20, 2018. Patient's main complaint is severe headache. Daughter is concerned because she is not as alert and active. Week prior she was admitted to [facility] for a subdural hematoma. She had a subdural of the tentorium. Repeat CT revealed no change and she was discharged to home. The evening prior to today's visit patient was seen at another facility. She had a CAT scan and daughter states they were told there was no change. Patient is not a good informant. She denied double vision or loss of vision. She denied change in her vision. She denies trouble with speech or swallowing. She denies chest pain, orthopnea, PND or dyspnea on exertion. She denies shortness of breath or cough. She has no auditory symptoms. She denies congestion, postnasal drainage or rhinorrhea. She does complain of mild neck pain. She denies neck stiffness. She does report nausea without vomiting diarrhea. She denied urologic symptoms. Daughter states she is having difficulty ambulating. Physical Examination: Vital signs noted and blood pressure is elevated 163/70. Head is atraumatic normocephalic. Pupils equal round reactive paradoxic muscle intact. There is no subconjunctival hemorrhage noted. Sclerae nonicteric. There is no hemotympanum. There is no CSF otorrhea or rhinorrhea. Neck is supple. Heart is regular. Lungs are clear to auscultation with room air bilaterally. Abdomen is soft nontender. Bowel sounds are present normal. Back is nontender. Examination of the lower extremity and upper extremities unremarkable. Skin reveals no rash or evidence of trauma. She is not alert nor she oriented. Reflexes are not normal. She has bilateral Babinski sign. Sensation and motor are intact. Finger-nose to finger was performed adequately. She was not ambulated. Affect is flat Test Results: CBC unremarkable. Glucose elevated 143. CT reveals an epidural hematoma, a sub-dural hematoma the tentorium, a subarachnoid hemorrhage and a left basal ganglion infarct. Emergency Department Course and Treatment: Because of patient's complaint of severe headache change in mental status and history of frequent falls and recent diagnosis of subdural hematoma a CT of the head was obtained. Patient was made n.p.o. Appropriate blood work was obtained. Treatment Plan: After reviewing CT and determining that the epidural and subarachnoid hemorrhage or new [facility] was contacted. Spoke with the nurse at transfer center. Eventually spoke with the neurosurgeon/trauma surgeon who was aware of her and accepted her. Because of evidence of increased intracranial pressure she did receive 0.5 mg/kg of mannitol. Disposition: Transfer neuro ICU [facility] Impression: 1. Epidural hematoma 2. Subarachnoid hemorrhage 3. Left basal ganglion infarct, new finding 4. Tentorial subdural hematoma, stable This note was generated with FittingRoom dictation software. It may contain incorrect words, spelling, and punctuation that were not noted in review of the chart prior to signing ED Disposition - Plan for ED Patient: Disposition: [facility] Chief Complaint: Nausea/Vomiting Referrals: Yandel Bush MD [Primary Care Provider] - What to do if you have Problems For any increased pain, shortness of breath, bleeding, nausea or vomiting, chest pain, or any unexpected problems, contact your Primary Care Provider. Call [facility] ([phone]) or report to the closest Emergency Room. Call 911 if necessary. 11/02/18 0704 <Electronically signed by Dylon Owens MD> Date Dylon Owens MD Cosigner Signature (If Indicated): Date CC: Yandel Bush MD LITHIUM Collected: 11/01/2018 Status: F Source: [facility] 8:11 PM [facility] REPOSITORY TYPE CODE TESTS RESULT OUT OF REFERENCE UNITS RANGE LAB LITHIUM(CARA 0.6 - 1.2 mmol/L NC) High LITHIUM 1.3 Performed By: #### [id number] #### [facility],[address] [place] [address] CT ANGIOGRAPHY HEAD Observed: 10/30/2018 Status: F Source: [facility] W/CONTRAST 7:32 PM [facility] REPOSITORY [place] [address] Patient: ELLI GUERRERO Phone#: : 1960 Age: 58 Gender: F Pt. Type: ER Account: [id number] Location: 2 Ordering: DR. FCO DE LEÓN Exam Date: 10/30/2018/19:09 Family Phys: YANDEL FLORESO Charge Code: [id number] Physician: Creek Order #: [id number] DLP Dose#: PROCEDURE: CT ANGIOGRAPHY HEAD WITH CONTRAST COMPARISON: [facility], CT, BRAIN W/O CON, 10/30/2018, 17:16. INDICATIONS: Altered Mental Status TECHNIQUE: After obtaining the patient's consent, CT images of the head were obtained with non- ionic contrast, and MPR and 3D imaging were created and interpreted to optimize visualization of vascular anatomy. All CT scans at this facility use dose modulation, iterative reconstruction, and/or weight based dosing when appropriate to reduce radiation dose to as low as reasonably achievable. IV CONTRAST: Omnipaque 350,80ml TOTAL DOSE: 143.80 CTDIvol(mGy) FINDINGS: VASCULATURE: Internal carotid arteries: No significant stenosis. No visible aneurysm or vascular malformation. Anterior cerebral arteries: No significant stenosis. No visible aneurysm or vascular malformation. Middle cerebral arteries. No significant stenosis. No visible aneurysm or vascular malformation. Vertebrobasilar circulation: No significant stenosis. No visible aneurysm or vascular malformation. The right vertebral artery terminates as PICA. The left vertebral artery super supplies the basilar artery. Basilar artery terminates as the superior cerebellar arteries. Bilateral posterior communicating arteries supply the posterior cerebral arteries. These findings are best seen on the thin acquisition slices. These are anatomical variants. OTHER: Please refer to CT brain without contrast performed same day for discussion of intracranial findings. CONCLUSION: 1. No stenosis, aneurysm or other malformation. Continued Report - Page 2 of 2 Patient: ELLI GUERRERO Phone#: : 1960 Age: 58 Gender: F Pt. Type: ER Account: [id number] Location: 052 Ordering: DR. CFO DE LEÓN Exam Date: 10/30/2018/19:09 Family Phys: YANDEL BUSH Charge Code: [id number] Physician: Creek Order #: [id number] DLP Dose#: Dictated by: Lupe Azevedo MD on 10/30/2018 at 20:03 Approved by: Lupe Azevedo MD on 10/30/2018 at 20:03 CBC Collected: 10/30/2018 Status: F Source: [facility] 5:55 PM [facility] REPOSITORY TYPE CODE TESTS RESULT OUT OF RANGE REFERENCE UNITS LAB CBC(LOINC) CBC Result Comment: CBC-COMPLETE BLOOD COUNT LAB WBC(LOINC) 4.5 - 10.8 x 10EE3/UL WBC High 12.4 LAB RBC(LOINC) 4.10 - x 10EE6/UL 5.30 RBC 4.52 LAB HEMOGLOBIN(LOINC 12.0 - g/dl ) 16.0 HEMOGLOBIN 13.4 LAB HEMATOCRIT(LOINC 34.0 - % ) 46.0 HEMATOCRIT 38.8 LAB MCV(LOINC) 80 - 99 fl MCV 86 LAB MCH(LOINC) 27 - 33 pg MCH 30 LAB MCHC(LOINC) 32 - 36 X10 3 MCHC 35 LAB RDW/CV(LOINC) 12.0 - % 15.6 RDW/CV 13.9 LAB PLATELET(LOINC) 150 - 450 x10EE3/UL PLATELET 170 LAB MPV(LOINC) 6.6 - 10.5 fl MPV 8.1 Result Comment: AUTOMATED DIFFERENTIAL LAB NEUT %(LOINC) 46.0 - 76.0 % NEUT % 72.6 LAB LYMPH %(LOINC) 20.0 - 45.0 % Low LYMPH % 18.9 LAB MONOS %(LOINC) 0.0 - 10.0 % MONOS % 5.8 LAB EO %(LOINC) 0.0 - 7.0 % EO % 2.0 LAB BASO %(LOINC) 0.0 - 2.0 % BASO % 0.7 LAB Lymph #(LOINC) 0.80 - 2.80 x10EE3/U L Lymph # 2.30 LAB Neut #(LOINC) 1.50 - 7.10 x10EE3/U L Neut # High 9.00 LAB Walsh #(LOINC) 0.20 - 1.00 x10EE3/U L Walsh # 0.70 LAB EO #(LOINC) 0.00 - 0.50 x10EE3/U L EO # 0.30 LAB Baso #(LOINC) 0.00 - 0.10 x10EE3/U L Baso # 0.10 LAB MANUAL DIFF(LOINC) MANUAL DIFF N/A LAB MORPHOLOGY(LOINC ) MORPHOLOGY N/A Result Comment: {CD] Performed By: #### [id number] #### [facility],[address] [place] [address] BMP WITH EGFR Collected: 10/30/2018 Status: F Source: [facility] 5:55 PM [facility] REPOSITORY TYPE CODE TESTS RESULT OUT OF RANGE REFERENCE UNITS LAB BMP with eGFR(LOINC) BMP with eGFR Result Comment: BASIC METABOLIC PANEL LAB SODIUM(LOINC) 136 - 145 mmol/l SODIUM 136 LAB POTASSIUM(LOINC) 3.5 - 5.1 mmol/L POTASSIUM 3.7 LAB CHLORIDE(LOINC) 98 - 107 mmol/L CHLORIDE 101 LAB CO2(LOINC) 21.0 - mmol/L 31.0 CO2 26.4 LAB GLUCOSE(LOINC) 74 - 106 mg/dl GLUCOSE 81 LAB BUN(LOINC) 6 - 20 mg/dl BUN 10 LAB CREATININE(LOINC) 0.6 - 1.2 mg/dl CREATININE 0.9 LAB CALCIUM(LOINC) 8.6 - mg/dl 10.2 CALCIUM High 10.8 LAB ANION GAP(LOINC) 10 - 20 mmol/L ANION GAP 12 LAB AGE(LOINC) years AGE 58 LAB eGFR(LOINC) 60 - 999 ML/MINUTE eGFR >60 LAB eGFR(AA)(LOINC) 60 - 999 ML/MINUTE eGFR(AA) >60 Result Comment: ACCORDING TO THE NATIONAL KIDNEY DISEASE EDUCATION PROGRAM(NKDE), A NORMAL eGFR IS A VALUE GREATER THAN OR EQUAL TO 60 ML/MIN/1.73 SQ METERS. CHRONIC KIDNEY DISEASE: <60mL/MIN/1.73 SQ METERS KIDNEY FAILURE: <15mL/MIN/1.73 SQ METERS THIS TEST SHOULD ONLY BE USED FOR PATIENTS 18 YEARS OF AGE AND OLDER. Performed By: #### [id number] #### [facility],[address] [place], [place] [address] CT BRAIN W/O CONTRAST Observed: 10/30/2018 Status: F Source: [facility] 5:30 PM [facility] REPOSITORY [place] [address] Patient: ELLI GUERRERO Phone#: : [phone] Age: 58 Gender: F Pt. Type: ER Account: [id number] Location: 052 Ordering: DR. FCO DE LEÓN Exam Date: 10/30/2018/17:16 Family Phys: YANDEL FLORESO Charge Code: 177133 Physician: Creek Order #: [id number] DLP Dose#: PROCEDURE: CT BRAIN WITHOUT CONTRAST COMPARISON: [facility], CT, BRAIN W/O CON, 10/19/2018, 23:34. INDICATIONS: Headache TECHNIQUE: CT images were obtained without contrast material. All CT scans at this facility use dose modulation, iterative reconstruction, and/or weight based dosing when appropriate to reduce radiation dose to as low as reasonably achievable. IV CONTRAST: No IV contrast used,0ml TOTAL DOSE: 57.50 CTDIvol(mGy) FINDINGS: CEREBRUM: There has been expected interval evolution of the known left temporoparietal hematoma. The hematoma demonstrates mixed attenuation blood products and measures 2.0 x 3.0 x 0.9 cm; previously 2.9 x 3.1 x 1.4 cm. Low attenuation fluid collection along the left calvarium as consistent with expected interval evolution of subdural blood products; the area measures 6.7 x 4.3 x 0.6 cm. Interval decrease in size of the subdural hematoma along the posterior falx. Interval resolution of the subdural hematoma along the tentorium. There is mild left to right mass effect measuring approximately 0.4 cm. CEREBELLUM: No edema, hemorrhage, mass, or inappropriate atrophy. BRAINSTEM: No edema, hemorrhage, mass, or inappropriate atrophy. CSF SPACES: There is effacement of the left posterior horn. There is crowding of the suprasellar cistern. There is tonsillar crowding at the foramen magnum. SKULL: There is hyperostosis frontalis interna, a benign age related finding. SINUSES: Limited views demonstrate no significant mucosal thickening or fluid. ORBITS: Limited views are unremarkable. OTHER: Negative. CONCLUSION: Continued Report - Page 2 of 2 Patient: ELLI GUERRERO Phone#: : [phone] Age: 58 Gender: F Pt. Type: ER Account: [id number] Location: 052 Ordering: DR. FCO DE LEÓN Exam Date: 10/30/2018/17:16 Family Phys: YANDEL BUSH Charge Code: 574365 Physician: Creek Order #: [id number] DLP Dose#: 1. Expected interval evolution of the left temporoparietal epidural hematoma which is decreased in size and demonstrates mixed attenuation blood products. 2. Mild mass effect with [id number] midline shift. Stable effacement of the suprasellar cistern and crowding at the foramen magnum. 3. Expected interval evolution of the left subdural hematoma now predominantly simple fluid attenuation. 4. Less conspicuous subdural hemorrhage along the posterior falx. 5. Interval resolution of the subdural hemorrhage adjacent to the left tentorium. Dictated by: Lupe Azevedo MD on 10/30/2018 at 17:48 Approved by: Lupe Azevedo MD on 10/30/2018 at 17:48 CBC (NO DIFF) Collected: 10/29/2018 Status: F Source: [facility] 5:53 [facility] REPOSITORY TYPE CODE TESTS RESULT OUT OF RANGE REFERENCE UNITS LAB CBC (NO DIFF)(LOINC ) CBC (NO DIFF) Result Comment: CBC(WITHOUT DIFFERENTIAL) LAB WBC(LOINC) 4.5 - 10.8 x 10EE3/UL WBC 5.8 LAB RBC(LOINC) 4.10 - x 10EE6/UL 5.30 RBC Low 4.05 LAB HEMOGLOBIN(LOINC) 12.0 - g/dl 16.0 HEMOGLOBIN 12.2 LAB HEMATOCRIT(LOINC) 34.0 - % 46.0 HEMATOCRIT 34.6 LAB MCV(LOINC) 80 - 99 fl MCV 85 LAB MCH(LOINC) 27 - 33 pg MCH 30 LAB MCHC(LOINC) 32 - 36 X10 3 MCHC 35 LAB RDW/CV(LOINC) 12.0 - % 15.6 RDW/CV 13.9 LAB PLATELET(LOINC) 150 - 450 x10EE3/UL PLATELET Low 125 LAB MPV(LOINC) 6.6 - 10.5 fl MPV 8.0 Result Comment: {CB] Performed By: #### [id number] #### [facility],[address] [place] [address] CMP WITH EGFR Collected: 10/29/2018 Status: F Source: [facility] 5:53 [facility] REPOSITORY TYPE CODE TESTS RESULT OUT OF RANGE REFERENCE UNITS LAB CMP with eGFR(LOINC) CMP with eGFR Result Comment: COMPREHENSIVE METABOLIC PANEL LAB SODIUM(LOINC) 136 - 145 mmol/l SODIUM 139 LAB POTASSIUM(LOINC) 3.5 - 5.1 mmol/L POTASSIUM 3.5 LAB CHLORIDE(LOINC) 98 - 107 mmol/L CHLORIDE 102 LAB CO2(LOINC) 21.0 - mmol/L 31.0 CO2 29.8 LAB GLUCOSE(LOINC) 74 - 106 mg/dl GLUCOSE High 138 LAB BUN(LOINC) 6 - 20 mg/dl BUN 7 LAB CREATININE(LOINC) 0.6 - 1.2 mg/dl CREATININE 0.6 LAB AST/SGOT(LOINC) 13 - 39 U/L AST/SGOT 21 LAB ALK PHOS(LOINC) 38 - 126 U/L ALK PHOS 93 LAB CALCIUM(LOINC) 8.6 - mg/dl 10.2 CALCIUM 10.0 LAB TOTAL 6.4 - 8.3 g/dl PROTEIN(LOINC) TOTAL PROTEIN 7.0 LAB ALBUMIN(LOINC) 3.4 - 4.8 g/dL ALBUMIN 4.0 LAB GLOBULIN(LOINC) 1.5 - 3.8 G/DL GLOBULIN 3.0 LAB A/G RATIO(LOINC) 0.9 - 1.6 A/G RATIO 1.3 LAB TOTAL BILI(LOINC) 0.0 - 1.5 mg/dl TOTAL BILI 0.5 LAB B/C RATIO(LOINC) 0 - 30 ratio B/C RATIO 12 LAB ALT/SGPT(LOINC) 8 - 35 U/L ALT/SGPT 15 LAB ANION GAP(LOINC) 10 - 20 mmol/L ANION GAP 11 LAB AGE(LOINC) years AGE 58 LAB eGFR(LOINC) 60 - 999 ML/MINUTE eGFR >60 LAB eGFR(AA)(LOINC) 60 - 999 ML/MINUTE eGFR(AA) >60 Result Comment: ACCORDING TO THE NATIONAL KIDNEY DISEASE EDUCATION PROGRAM(NKDE), A NORMAL eGFR IS A VALUE GREATER THAN OR EQUAL TO 60 ML/MIN/1.73 SQ METERS. CHRONIC KIDNEY DISEASE: <60mL/MIN/1.73 SQ METERS KIDNEY FAILURE: <15mL/MIN/1.73 SQ METERS THIS TEST SHOULD ONLY BE USED FOR PATIENTS 18 YEARS OF AGE AND OLDER. Performed By: #### [id number] #### [facility],[address] [place] [address] LITHIUM Collected: 10/29/2018 Status: F Source: [facility] 5:53 AM [facility] REPOSITORY TYPE CODE TESTS RESULT OUT OF REFERENCE UNITS RANGE LAB LITHIUM(CARA 0.6 - 1.2 mmol/L NC) High LITHIUM 1.4 Performed By: #### [id number] #### [facility],[address] [place] [address] NURSING PROG Observed: 10/28/2018 Status: COMPLETED Source: [facility] 1:17 PM CLINIC OTHER CAMPUS REPOSITORY HNO ID: [id number] Author: Yulisa (Rn) ANDREI Salgado Service: Nursing Author Type: Registered Nurse Type: Nursing Progress Note Filed: 10/28/2018 1:18 PM Note Text: Nursing Progress Note Patient Name: Elli Guerrero Patient Location: [place] [address] [address]* Daily Note:Report called to [facility] Joaquín. to be transported at 1530 today. This note was completed by: Yulisa Salgado RN GLUCOSE METER Collected: 10/28/2018 Status: F Source: [facility] 12:21 PM HEALTH SYSTEM REPOSITORY TYPE CODE TESTS RESULT OUT OF REFERENCE UNITS RANGE LAB GLUBL(LOINC 70-99 mg/dL ) High Glucose Meter 170 Result Comment: RN NOTIFIED Performed By: #### GLMET #### [place] [address] CASE MANAGEM Observed: 10/28/2018 Status: COMPLETED Source: [facility] 11:[address] [facility] OTHER CAMPUS REPOSITORY HNO ID: [id number] Author: Nataliia HenriquezRn) ANDREI Whiteside Service: Care Management Author Type: Registered Nurse Type: Care Mgt Progress Note Filed: 10/28/2018 11:27 AM Note Text: CARE MANAGEMENT DISCHARGE NOTE SERVICE DATE: 10/28/2018 SERVICE TIME: 1123 LOS: 8 days Admission Date: 10/20/2018 DISCHARGE ARRANGEMENT (list agency and phone number) group home facility: Was an expedited discharge program used? No Provider: zabrina yanes CAREGIVER ASSESSMENT: Caregiver is ready, willing and able to meet the patient's needs as recommended by the inter-professional team? Yes Patient's transition needs and plan for meeting these needs: pt to snf at ri Does the patient have an acute stroke diagnosis, or has the patient had a stroke during this admission? No HANDOFF COMMUNICATION: pt to be followed at the snf at ri TRANSPORTATION ARRANGEMENTS: Mode of Transportation: [facility] Transportation Agency and Phone #: [facility] Care ambulance ( [facility] ) [phone] / [phone]. Date of Trip: 10/28/2018 Type of Service: BLS Non-emergency and Wheelchair Is Patient Medicaid Pending: No Discussion of financial coverage occurred with Patient . Billet Grinder Location: [facility] Destination: [facility] Financial Care Management Responsibility: None Estimated Charge: n/a Approving Construction Checker: n/a ADDITIONAL CONTACT RESOURCES: none Pt discharged to [facility] today. [facility] set up for 1:30pm and pt and her dtr made aware. SIGNATURE: Nataliia Whiteside RN PATIENT NAME: Elli Guerrero DATE: October 28, 2018 TIME: 11:24 AM PAGER/CONTACT #: [phone] THERAPY NT Observed: 10/28/2018 Status: COMPLETED Source: [facility] 11:15 AM CLINIC OTHER CAMPUS REPOSITORY O ID: [id number] Author: Aimee (Pt) Vianey Service: Physical Therapy Author Type: Physical Therapist Type: Therapy (PT/OT/Speech/Resp) Filed: 10/28/2018 11:21 AM Note Text: Physical Therapy Treatment SERVICE DATE: 10/28/2018 SERVICE TIME: 1032 to 1102 ROOM: [id number] Recommended Discharge Disposition: Subacute/SNF Justification For Post Acute Needs: Good premorbid functional status;Living the community premorbidly;Medically complex;Willing to participate;Anticipate that patient will require daily (5x/wk) skilled therapy in a post-acute facility setting at the time of acute hospital discharge PT Recommendations to Nursing: Ambulate with device;To bathroom;Transfer to/from chair;OOB for Meals;With assist of 1 person Device: Wheeled Walker PT 6 Clicks Score: 17 Precautions/Activity Restrictions: Lines/Tubes/Drains;Fall Risk Precaution/Activity Restriction Comments: IV Isolation Type: None ASSESSMENT : Patient seen for follow up visit--pt has made a lot of progress so far with functional mobility but does need additional therapy at a post acute facility to continue working towards independence--she does have safety/memory issues as well that need to be addressed Patient Disposition at Start of Session: Supine in Bed;Call Guido in Reach Patient Disposition at End of Session: OOB in Chair;Call Guido in Reach Tolerance Limited By Fatigue Physical Therapy Problem List: Decreased Activity Tolerance;Decreased Strength;Functional Mobility Impairment;Balance Impaired;Safety Deficits;Cognitive Deficit Patient /Caregiver Goals: Go Home Goals for Plan of Care: Rolling with: Verbal Cues Only Transfer supine to/from sit with: Stand By Assistance (initial goal met 10/28--updated MC) Transfer sit to/from stand with: Stand By Assistance (initial goal met 10/28--updated MC) Ambulate with: Stand By Assistance (initial goal met 10/28--updated MC) Distance: 50' intervals without LOB Device: Other: See Comment (least restrictive assistive device) Goal: pt to perform lower extremity strengthening ther-ex 2x15 reps Progress Toward Goals: Progressing as expected (some goals met and updated) Rehab Potential: Good PLAN: Treatment Frequency (times per week): 5 (1-5) Current admission Treatment Interventions: Education;Joint Mobility;Strengthening;Functional Mobility Training;Balance Training;Neuromuscular Re-education Plan of Care developed with: Patient TREATMENT INTERVENTIONS: Therapy Diagnosis: Reduced mobility-other;Muscle Weakness (generalized);Unsteadiness on feet Interventions Provided: Therapeutic Activity (78454) Therapeutic Activity (75144) Treatment Minutes: 30 2 units Skilled Intervention(s): Reviewed role of PT in acute care--discussed POC, goals and D/C rec--plan is to go to post acute facillity today just needed an updated note--pt excited to leave and start recovering Educated on safety and fall prevention--use call light and wait for assist--pt understands Educated on negative effects of bed rest--encouraged OOB for meals, up to bathroom/BSC with assist Instruct in hand placement and safety with bed mobility needed CGA to complete--instruct to reach across body for railing and roll to side and then sit up using UEs for support Static stand at wheeled walker with contact guard assist completing upper extremity activity Instruct in hand placement and safety with transfers needed CGA to complete--instruct to have one hand on the walker and one hand on the bed or armrest to stand; step back to the chair and feel the chair behind knees and reach back and sit down slowly Ambulate with assistive device and CGA to complete--instruct to have upright posture and stay close to the walker; look up to avoid obstacles ? Total Timed Code Treatment Minutes: 30 Total Treatment Time (minutes): 30 SUBJECTIVE: Current Hospital Course: Chart reviewed and no significant medical updates relevant to therapy were noted Reason for Physical Therapy Consult : PT evaluation Relevant Past Medical History: BTHA, bipolar, anemia Patient Report: no c/o pain--agreeable to PT/mobility Home Environment Patient Lives With: Spouse Assistance Available: oversize load pilot escort;24 Hour (spouse/daughter next door) Entry To Home: Stairs (we can put a rail on if we need to) Number Of Stairs Into Home: 3 Number Of Stairs To Bed/Bath: All one level once in home Tub/Shower Type: tub/shower Laundry: Family can provide IADL Equipment Owned: Wheeled Walker;Cane;Shower Chair Prior Functional Level: Within Functional Limits Prior Functional Level Comments: Patient admitted last week with SDH and required CGAx1 to safely ambulate 60'x2. D/C rec was for outpatient PT for balance impairments. OBJECTIVE: CURRENT FUNCTIONAL STATUS: Current Functional Mobility Assist Level Additional Information Rolling Supine to Sit Contact Guard Assistance (with HOB elevated) Sit to Supine Scooting Sit to Stand Contact Guard Assistance Stand to Sit Contact Guard Assistance Bed to Chair Toilet/Commode Gait Contact Guard Assistance Gait Device: Wheeled Walker Gait Distance (feet): 20x2 Stairs Curb Step Car Transfer General Gait Deviations: Lauren decreased;Step length decreased;Shuffling Gait Balance: Static Sitting;Static Standing;Dynamic Standing Static Sitting Balance: Stand By Assistance Static Standing Balance: Contact Guard Assistance Dynamic Standing Balance: Contact Guard Assistance -M: 7: Walk 25 feet or more Please see discipline specific clinical documentation flowsheet for complete details for this therapy evaluation/treatment. SIGNATURE: Aimee Winters, PT PATIENT NAME: Elli Guerrero DATE: October 28, 2018 TIME: 11:15 AM CNDS Observed: 10/28/2018 Status: COMPLETED Source: [facility] 9:51 AM CLINIC OTHER CAMPUS REPOSITORY HNO ID: [id number] Author: Chuck Delgado MD Service: Hospital Medicine Author Type: Physician Type: Discharge Summaries Filed: 10/28/2018 9:52 AM Note Text: DISCHARGE SUMMARY PATIENT NAME: Elli Guerrero Code Status: Full Code Highest Readmission Risk Score: 36 The 30 day readmissions risk score is derived from an internally validated risk model which evaluates patient level characteristics, utilization history, medication orders and lab results up until the day of discharge. Patients with a score of 40 or above are considered highest risk for readmission. Specific patient level drivers will be listed at the bottom of the summary. Admission Information Admission Information ADMIT DATE: 10/20/2018 DISCHARGE DATE: 10/28/18 MY DOCTORS AND MEDICAL TEAM: My Main Hospital Doctor: Chuck Delgado MD Primary Care Provider: Yandel Bush MD My Medical Team Members: Treatment Team: Attending Provider: Chuck Delgado MD Primary Service: Landry Miller Consulting: Landry Nova MY CONDITION AT DISCHARGE: Stable REASON I WAS IN THE HOSPITAL: subdural hematoma SUMMARY OF WHAT HAPPENED WHILE I WAS IN THE HOSPITAL: Admitted with # Subdural hematoma, was initially admitted to the ICU, Patient with a recent history of a fall with TBI and subdural hematoma, had repeat CT with stable hematoma and showed evolution of the subdural bleeding. Neurosurgery recommend no intervention ? # UTI, UA is positive, was started on rocephin, will be discharged on Bactrim ? # Possible vaginal bleeding, resolved, no current bleeding, Lab Associate evaluated the patient and there was no current bleeding ? # Paroxysmal atrial fibrillation, has been in NSR on the tele, BB dose was decreased due to bradycardia, no OAC due to SDH, will need to follow up with NS for when it is safe to resume oral anticoagulation Discharge diagnosis # UTI # Possible vaginal bleeding # Subdural hematoma # Type 2 diabetes mellitus # Essential (primary) hypertension # Bipolar disorder # Paroxysmal atrial fibrillation Discharge Disposition Discharge Disposition: Longterm Facility - Less than 30 Days Follow Up Appointments Follow-Up Appointment To follow up on when it is safe to start oral anticoagulation for paroxysmal A fib When: In 2 weeks Raul Mike [phone] [address] [facility] [address] PCP Requested Referral Follow-Up Appointment With: PCP When: In 1 week FOLLOW-UP APPOINTMENTS ALREADY SCHEDULED WITH A [facility] PROVIDER: Future Appointments Date Time Provider Department Center 04/10/2019 9:30 AM Holden ROQUE [facility] No Known Allergies DISCHARGE MEDICATION: Current Discharge Medication List START taking these medications nystatin (MYCOSTATIN) 5 mL Take 5 mL by mouth four times daily. metoprolol tartrate (short acting) (LOPRESSOR) 12.5 mg Take 12.5 mg by mouth every 12 hours. sulfamethoxazole-trimethoprim (BACTRIM DS,SEPTRA DS) 1 tablet Take 1 tablet by mouth twice daily. Qty: 8 tablet Refills: 0 CONTINUE these medications which have NOT CHANGED !! lithium carbonate ER 900 mg Take 900 mg by mouth daily at bedtime. !! lithium carbonate ER 450 mg Take 450 mg by mouth once daily. Hydrochlorothiazide 12.5 mg Take 12.5 mg by mouth once daily. Ferrous Gluconate (FERGON) 324 mg (38 mg iron) tablet TAKE ONE TABLET BY MOUTH TWICE DAILY WITH MEALS Qty: 60 tablet Refills: 1 Comments: This prescription was filled on 08/19/2018. Any refills authorized will be placed on file. Associated Diagnoses:Iron deficiency anemia, unspecified iron deficiency anemia type pantoprazole DR (PROTONIX) 40 mg tablet TAKE ONE TABLET BY MOUTH ONCE DAILY Qty: 90 tablet Refills: 1 Comments: This prescription was filled on 08/19/2018. Any refills authorized will be placed on file. Associated Diagnoses:Gastroesophageal reflux disease, esophagitis presence not specified metFORMIN (GLUCOPHAGE) 1,000 mg Take 1,000 mg by mouth twice daily with meals. Qty: 360 tablet Refills: 1 glimepiride (AMARYL) 4 mg Take 4 mg by mouth daily with breakfast. Qty: 90 tablet Refills: 1 FARXIGA 10 mg tab TAKE ONE TABLET BY MOUTH DAILY Qty: 30 tablet Refills: 5 Comments: This prescription was filled on 06/19/2018. Any refills authorized will be placed on file. hydroxychloroquine (PLAQUENIL) 200 mg Take 200 mg by mouth twice daily. sertraline (ZOLOFT) 150 mg Take 150 mg by mouth once daily. Refills: 0 !! - Potential duplicate medications found. Please discuss with provider. STOP taking these medications metoprolol succinate ER (TOPROL XL) 50 mg Comments: Reason for Stopping: Discharge Physical Exam: VITAL SIGNS: BP 120/51 Pulse (!) 58 Temp 36.8 ?C (98.2 ?F) (Oral) Resp 18 Ht 162.6 cm (5' 4) Wt 111.3 kg (245 lb 6 oz) SpO2 95% BMI 42.12 kg/m? General appearance: NAD, conversant Lungs: Clear to auscultation CV: Ns1s2 Abdomen: Soft, non tender Extremities: No peripheral edema or cyanosis The patient's risk for 30-day readmission is determined using the following contributing factors: Pt variables contributing to increased readmission risk: 28 Active Medication Orders 9.5 First Resulted Calcium During Admission 7 Most Recent BUN Result 1 Previous ED Visit (6 mos.)? 1 Number of Previous ED Visits (6 mos.) 1 Insurance - Medicare 1 History of Anemia 1 Barriers to Health Literacy Identified 1 Number of Hospitalizations (12 mos.) TIME OF CARE: Discharge Management: I personally spent greater than 30 minutes involved in the discharge management of this patient. SIGNATURE: Chuck Delgado MD PAGER/CONTACT #: DATE: October 28, 2018 TIME: 9:51 AM MDRD GFR Collected: 10/28/2018 Status: F Source: [facility] 5:45 AM HEALTH SYSTEM REPOSITORY TYPE CODE TESTS RESULT OUT OF RANGE REFERENCE UNITS LAB GFRFN(LOINC >60mL/min/1.73m ) 2 eGFR >60 Result Comment: If the patient is , multiply the result by 1.210. Performed By: #### GFR #### [place] [address] HEMOGRAM/DIFF Collected: 10/28/2018 Status: F Source: [facility] 5:45 AM HEALTH SYSTEM REPOSITORY TYPE CODE TESTS RESULT OUT OF REFERENCE UNITS RANGE LAB WBC(LOINC) 3.98-10.04 thou/cmm WBC 4.67 LAB RBC(LOINC) 3.93-5.22 mil/cmm Low RBC 3.90 LAB HGB(LOINC) 11.2-15.7 g/dL Hgb 11.5 LAB HCT(LOINC) 34.1-44.9 % Hct 34.3 LAB MCV(LOINC) 79.4-94.8 fl MCV 87.9 LAB MCH(LOINC) 25.6-32.2 pg MCH 29.5 LAB MCHC(LOINC 31.6-34.8 % ) MCHC 33.5 LAB RDW(LOINC) 11.7-14.4 % RDW 13.4 LAB RDWSD(LOIN 36.4-46.3 fl C) RDW SD 43.1 LAB PLT(LOINC) 182-369 thou/cmm Low Platelet 108 LAB MPV(LOINC) 9.4-12.3 fl MPV 9.7 LAB SEG(LOINC) % Seg Neutrophil 58.5 LAB IGRE(LOINC % ) Immature Grans 0.40 LAB LYMPH(LOIN % C) Lymphocyte 30.6 LAB MNO(LOINC) % Monocyte 7.1 LAB EOSIN(LOIN % C) Eosinophil 3.0 LAB BASO(LOINC % ) Basophil 0.4 LAB SEGN(LOINC 1.56-6.13 thou/cmm ) Abs. Neut (ANC) 2.73 LAB IGAB(LOINC 0.00-0.05 thou/cmm ) Abs Immature Grans 0.02 LAB LYMN(LOINC 1.18-3.74 thou/cmm ) Abs. Lymph 1.43 LAB MONON(LOIN 0.27-0.70 thou/cmm C) Abs. Walsh 0.33 LAB EOSN(LOINC 0.00-0.31 thou/cmm ) Abs. Eosin 0.14 LAB BASON(LOIN 0.01-0.08 thou/cmm C) Abs. Baso 0.02 Performed By: #### [id number] #### [place] [address] MAGNESIUM BLOOD Collected: 10/28/2018 Status: F Source: [facility] 5:45 AM HEALTH SYSTEM REPOSITORY TYPE CODE TESTS RESULT OUT OF REFERENCE UNITS RANGE LAB MAG(LOINC) 1.6-2.6 mg/dL Magnesium Blood 2.0 Performed By: #### MAG #### [place] [address] PHOSPHORUS BLOOD Collected: 10/28/2018 Status: F Source: [facility] 5:45 AM HEALTH SYSTEM REPOSITORY TYPE CODE TESTS RESULT OUT OF REFERENCE UNITS RANGE LAB PHOS(LOINC 2.5-4.9 mg/dL ) Phosphorus Blood 4.1 Performed By: #### PHOS #### [place] [address] COMPREHENSIVE PANEL Collected: 10/28/2018 Status: F Source: [facility] 5:45 AM HEALTH SYSTEM REPOSITORY TYPE CODE TESTS RESULT OUT OF REFERENCE UNITS RANGE LAB NA(LOINC) 136-145 mEq/L Sodium Blood 139 LAB K(LOINC) 3.5-5.1 mEq/L Low Potassium Blood 3.3 LAB CL(LOINC) 98-107 mEq/L Chloride Blood 106 LAB CO2(LOINC) 21-32 mEq/L CO2 Blood 24 LAB GLU(LOINC) 70-99 mg/dL Glucose High Blood 134 LAB BUN(LOINC) 7-18 mg/dL BUN Blood 7 LAB CREA(LOINC 0.51-0.95 mg/dL ) Creatinine Blood 0.55 LAB CA(LOINC) 8.5-10.1 mg/dL Calcium Blood 9.0 LAB ALB(LOINC) 3.4-5.0 g/dL Low Albumin Blood 3.2 LAB TP(LOINC) 6.4-8.2 g/dL Total Protein 7.3 LAB AST(LOINC) 9-37 U/L AST-SGOT Blood 23 LAB ALT(LOINC) 12-78 U/L ALT-SGPT Blood 23 LAB ALKP(LOINC 46-116 U/L ) Alk Phosphatase 104 LAB BILIT(LOIN 0.2-1.0 mg/dL C) Total Bilirubin 0.6 LAB ANGAP(LOIN 8-16 C) Anion Gap 12 Performed By: #### P14 #### [place] [address] CASE MANAGEM Observed: 10/27/2018 Status: COMPLETED Source: [facility] 3:39 PM CLINIC OTHER CAMPUS REPOSITORY HNO ID: [id number] Author: Nataliia (Rn) ANDREI Whiteside Service: Care Management Author Type: Registered Nurse Type: Care Mgt Progress Note Filed: 10/27/2018 3:40 PM Note Text: CARE MANAGEMENT PROGRESS NOTE SERVICE DATE: 10/27/2018 SERVICE TIME: 1539 LOS: 7 days Pt with approval for zabrina yanes. Needs to be sitter free for 24 hours prior to dc. Able to dc tomorrow. Doctor aware. SIGNATURE: Nataliia Whiteside RN PATIENT NAME: Elli Geurrero DATE: October 27, 2018 TIME: 3:39 PM PAGER/CONTACT #: [id number] PROGRESS Observed: 10/27/2018 Status: COMPLETED Source: [facility] 3:14 PM CLIN[facility] OTHER CAMPUS REPOSITORY O ID: [id number] Author: Chuck Delgado MD Service: Hospital Medicine Author Type: Physician Type: Progress Notes Filed: 10/27/2018 3:18 PM Note Text: DEPARTMENT OF HOSPITAL MEDICINE PROGRESS NOTE Interval History/Chief Complaints: follow up on SDH Subjective Patient was seen, had a fall yesterday, had another CT brain which did not show any new bleed but showed evolution of the subdural bleeding. Denies fever, chills, n, v, cp, sob, palpitation, dysuria, or abdominal pain Objective PHYSICAL EXAM: BP 127/67 Pulse 59 Temp (Src) 98.8 (Oral) Resp 18 Ht 5' 4 (1.63m) Wt 245 lb 6 oz (111.3kg) SpO2 93% BMI 42.10 kg/(m2). General appearance: NAD, conversant Lungs: Clear to auscultation CV: Ns1s2 Abdomen: Soft, non tender Extremities: No peripheral edema or cyanosis MEDICATIONS: Reviewed Current hospital medications: cefTRIAXone iv piggyback 1 g in dextrose (iso-osmotic) 50 mL (ROCEPHIN) 1 g INTRAVENOUS q 24 H nystatin 5 mL oral liquid (MYCOSTATIN) 5 mL ORAL QID senna-docusate 8.6-50 mg 1 tablet (SENNA-S) 1 tablet ORAL BID metoprolol tartrate (short acting) 12.5 mg tab(s) (LOPRESSOR) 12.5 mg ORAL/FEEDING TUBE q 12 H hydrALAZINE 5 mg injection (APRESOLINE) 5 mg INTRAVENOUS q 4 H PRN miconazole 2 % 1 application topical powder (LOTRIMIN AF, DESENEX) 1 application TOPICAL BID nortriptyline 10 mg cap(s) (PAMELOR) 10 mg ORAL/FEEDING TUBE AT BEDTIME insulin lispro pen (rapid acting) (HumaLOG KWIKPEN) SUBCUTANEOUS w MEALS AND HS Hydrochlorothiazide 12.5 mg 12.5 mg ORAL/FEEDING TUBE DAILY hydroxychloroquine 200 mg (PLAQUENIL) 200 mg ORAL/FEEDING TUBE BID sertraline (ZOLOFT) tab(s) 150 mg 150 mg ORAL/FEEDING TUBE DAILY acetaminophen 650 mg tab(s) (TYLENOL) 650 mg ORAL/FEEDING TUBE q 4 H PRN metoclopramide HCl 10 mg tab(s) (REGLAN) 10 mg ORAL q 6 H PRN dextrose 40 % 15 g 15 g ORAL/FEEDING TUBE PRN glucagon 1 mg injection (GLUCAGEN) 1 mg INTRAMUSCULAR PRN dextrose 50% in water 25 mL syringe 12.5 g INTRAVENOUS PRN lithium carbonate ER 900 mg tab(s) 900 mg ORAL AT BEDTIME lithium carbonate ER 450 mg tab(s) 450 mg ORAL DAILY pantoprazole DR 40 mg tab(s) (PROTONIX) 40 mg ORAL DAILY (6 AM) NaCl 0.9% 3-5 mL 3-5 mL INTRAVENOUS q 12 H NaCl 0.9% iv infusion 100 mL/hr INTRAVENOUS CONTINUOUS ondansetron 4 mg tab(s) (ZOFRAN) 4 mg ORAL q 6 H PRN ondansetron (PF) 4 mg injection (ZOFRAN) 4 mg INTRAVENOUS q 6 H PRN magnesium hydroxide 400 mg/5 mL 30 mL (MOM) 30 mL ORAL DAILY PRN bisacodyl 10 mg suppository (DULCOLAX) 10 mg RECTAL DAILY PRN oxyCODONE IR 5-10 mg tab(s) (ROXICODONE) 5-10 mg ORAL q 3 H PRN fentaNYL 50 mcg/mL 25-50 mcg injection (SUBLIMAZE) 25-50 mcg INTRAVENOUS q 1 H PRN DATA: Diagnostic tests reviewed for today's visit: CBC: Recent Labs 10/27/18252 WBC 5.56 RBC 3.86* HB 11.4 HCT 34.4 PLT 120* MCV 89.1 MCH 29.5 MPV 9.8 RDW 13.5 Coags: No results for input(s): INR, APTT in the last 24 hours. Invalid input(s): PT BMP: Recent Labs 10/27/18 0253 NA 139 K 3.5 CHLOR 107 CO2 25 BUN 10 CREAT 0.54 GLUC 132* CMP: Recent Labs 10/27/18 0601 10/27/18 0253 NA -- 139 K -- 3.5 CHLOR -- 107 CO2 -- 25 BUN -- 10 CREAT -- 0.54 GLUC -- 132* TPROT -- 7.5 CA -- 9.1 MG 2.2 -- TBILI -- 0.6 ALKPHOS -- 107 ALT -- 25 AST -- 34 ANION -- 11 Recent Labs 10/27/18 0253 TPROT 7.5 ALB 3.2* ALT 25 AST 34 ALKPHOS 107 TBILI 0.6 MG/PHOS: Recent Labs 10/27/18 0601 10/27/18 0253 MG 2.2 -- P -- 3.6 Renal Panel: Recent Labs 10/27/18 0253 CREAT 0.54 BUN 10 GLUC 132* CA 9.1 P 3.6 CHLOR 107 K 3.5 CO2 25 NA 139 Heme: No results for input(s): RETICP, ABSRETIC, LD, BRENNAN, FE, TIBC, TRANSFERSAT in the last 24 hours. Albumin/Creat Ratio (mg/g) Date Value 04/01/2018 15 Most recent labs/microbiology/imaging were reviewed independently and discussed with the patient Assessment/Plan Active Problems: # Recent fall yesterday, had a fall yesterday, had another CT brain which did not show any new bleed but showed evolution of the subdural bleeding. # UTI, UA is positive, c/w rocephin, DC on Bactrim # Possible vaginal bleeding, resolved, no current bleeding, Lab Associate evaluated the patient and there was no current bleeding # Subdural hematoma (HCC) POA: Yes Assessment AND Plan: Patient with a recent history of a fall with TBI and subdural hematoma ?Repeat CT with stable hematoma and mass effect ?Neurosurgery recommend no intervention ? # Type 2 diabetes mellitus (HCC) POA: Yes Assessment AND Plan: stable, c/w current tx # Essential (primary) hypertension POA: Yes Assessment AND Plan: stable, continue current tx # Bipolar disorder, unspecified (HCC) POA: Yes Assessment AND Plan: on lithium, level is below range but her sym are stable # Paroxysmal atrial fibrillation (HCC) POA: Yes Assessment AND Plan: in NSR, continue BB For SNF, resident care associate following, DC sitter for discharge purposes, communication made to the nurse to keep bed alarm on and also bedside commode approachable, patient also was instructed to ask for help when ever she moves, she verbalized understanding. SIGNATURE: Chuck Delgado MD PATIENT NAME: Elli Guerrero TIME: 12:45 PM PAGER/CONTACT #: THERAPY NT Observed: 10/27/2018 Status: COMPLETED Source: [facility] 11:07 AM CLINIC OTHER CAMPUS REPOSITORY O ID: [id number] Author: Marily HenriquezOtr/Lanre Gutierrez Service: Occupational Therapy Author Type: Occupational Therapist Type: Therapy (PT/OT/Speech/Resp) Filed: 10/27/2018 11:27 AM Note Text: Occupational Therapy Treatment SERVICE DATE: 10/27/2018 SERVICE TIME: 1030 to 1053 ROOM: [place] [address] Recommended Discharge Disposition: Subacute/SNF Recommended Discharge Disposition Comments: Patient has had a decline from prior level of independence and would benefit from skilled rehab post acute to return to prior level of function/safe return home. Justification For Post Acute Needs: Anticipate that patient will require daily (5x/wk) skilled therapy in a post-acute facility setting at the time of acute hospital discharge;May not tolerate higher intensity programing;Willing to participate;Medically complex;Living the community premorbidly;Good premorbid functional status;Good family support OT Recommendations to Nursing: ADL?s in chair;OOB for meals;Bedside Commode for Toileting;With assist of 2 people Equipment: Commode-Bedside OT 6 Clicks Score: 16 Precautions/Activity Restrictions: Sitter;Lines/Tubes/Drains;Fall Risk Precaution/Activity Restriction Comments: Continuous EEG, IV, telemetry, continuous pulse ox/BP, Perez Isolation Type: None ASSESSMENT: Patient much improved since last session. Patient meeting goals, updated them as appropriate, please see below. Patient unsteady on feet and is noted to be a high fall risk. Patient Disposition at Start of Session: Supine in Bed;Sitter Present Patient Disposition at End of Session: Supine in Bed;Sitter Present;Call Guido in Reach Tolerated Full Session Occupational Therapy Problem List: Cognitive Deficit;Education Deficit;Safety Deficits;Impaired Self Care;Decreased Activity Tolerance;Decreased Strength;Decreased Range Of Motion;Functional Mobility Impairment Patient /Caregiver Goals: Go Home Goals for Plan of Care: Feeding with: Independent Grooming with: Set Up Upper Body Bathing with: Stand By Assistance Upper Body Dressing with: Stand By Assistance Lower Body Dressing with: Minimal Assistance Toilet Hygiene with: Minimal Assistance Toilet Transfer with: Contact Guard Assistance Tolerate (minutes of functional activity): 30 Functional Activity with: Contact Guard Assistance Additional Goal 1: Patient will complete functional mobility for ADL with least restrictive device and minimal assist. Additional Goal 2: Patient will participate in UB exercises x 10 minutes to increase UB strength for ADL/ADL mobility. Additional Goal 3: patient will complete moderate level cognitive tasks with 85% accuracy Demonstrate Competence With Education with: Verbal Cues Only Increased Awareness of Cognitive Impairments as Related to ADL's/IADL's: Demonstrated;Verbalized Progress Toward Goals: Progressing as expected Rehab Potential: Good PLAN: Treatment Frequency (times per week): 3 (1-3 times per week) Current admission Treatment Interventions: Education;Self Care / Home Management;Energy Conservation Training;Strengthening;Functional Mobility Training;Balance Training;Cognitive Training Plan of Care developed with: Patient TREATMENT INTERVENTIONS: Therapy Diagnosis: Reduced mobility-other;Decreased activities of daily living (ADL);Muscle Weakness (generalized);Unsteadiness on feet;Signs and Symptoms Involving Cognitive Functions and Awareness Interventions Provided: Cognitive Training (63917 or G0515);Self Alf Management (49521) Self Alf Management (40710) Treatment Minutes: 13 1 unit Skilled Intervention(s):Educated on the role of OT in the acute care setting. Instructed in energy conservation during self care and functional transfers, provided rest breaks at needed. Cues for sequencing in hygiene tasks while standing at the BSC, educated on effective technique and safety. Provided instruction, cuing and facilitation for lower body dressing (donning socks) while sitting at the EOB, instructed on the figure four technique to avoid excessive leaning forward. Education in fall prevention and safety throughout session, as patient very unsteady on her feet. Facilitated BSC transfer, provided step by step verbal direction for proper hand and body placement. Cognitive Training (G0515) Treatment Minutes (2018 Only): 10 $ Cognitive Training (G0515) Billed Units (2018 Only): 1 unit Skilled Intervention(s):. Faciliaited the [place] Cognitive Assessment (MOCA), score provided below. Patient performed task while sitting upright in bed. Patient agreeable to assessment and was pleasant throughout. Results indict a moderate cognitive impairment in relation to visuospatial/executive functioning, attention, language, delayed recall and orientation. Based on results, patient would be unsafe to return home and be independence with self care/transfers/safety. Total Timed Code Treatment Minutes: 23 Total Treatment Time (minutes): 23 SUBJECTIVE: Current Hospital Course: Chart reviewed and no significant medical updates relevant to therapy were noted Reason for Occupational Therapy Consult: Decreased ability to complete self care Relevant Past Medical History: BTHA, bipolar, anemia Patient Report: found supine, sitter present, agreeable to therapy services, reports 4/10 head pain. Are you the one that is going to help me get home? Home Environment Patient Lives With: Spouse Assistance Available: oversize load pilot escort;24 Hour (spouse/daughter next door) Entry To Home: Stairs (we can put a rail on if we need to) Number Of Stairs Into Home: 3 Number Of Stairs To Bed/Bath: All one level once in home Tub/Shower Type: tub/shower Laundry: Family can provide IADL Equipment Owned: Wheeled Walker;Cane;Shower Chair Prior Functional Level: Within Functional Limits Prior Functional Level Comments: Patient admitted last week with SDH and required CGAx1 to safely ambulate 60'x2. D/C rec was for outpatient PT for balance impairments. OBJECTIVE: Cognition/Communication Deficits Responsiveness: Drowsy (cues to keep eyes open; better with lights dimmed/glasses on) Follows Commands: 1-step Commands;Cueing Needed Cueing to Follow Commands: Moderate Attention Deficits: Distractible Executive Function Deficits: Sequencing;Insight to Deficits;Problem Solving;Safety Awareness Sequencing Deficit: Minimal impairment Insight to Deficits: Minimal impairment Problem Solving Deficit: Minimal impairment Safety Awareness Deficit: Minimal impairment Cognitive Clinical Tests and Screens: MoCA Visuospatial/executive: 1 Namin Digits: 1 Letters: 1 Subtraction: 1 Repetition: 2 Fluency: 0 Abstraction: 2 Delayed Recall: 0 Orientation: 5 Points For Educational Level: 0 MoCA Total: 16/30 a score of greater than or equal to 26/30 is considered normal. CURRENT FUNCTIONAL STATUS: Current Activities of Daily Living Assist Level Feeding Set Up Grooming Minimal Assistance Bathing Upper Body Minimal Assistance Bathing Lower Body Moderate Assistance Dressing Upper Body Minimal Assistance Dressing Lower Body Moderate Assistance Toileting Moderate Assistance Functional Mobility Assist Level Rolling Minimal Assistance Supine to Sit Minimal Assistance Sit to Supine Minimal Assistance Scooting Minimal Assistance Sit to Stand Minimal Assistance Stand to Sit Minimal Assistance Toilet/Commode Minimal Assistance (BSC) Functional Mobility Range of Motion: ROM Limitation Comments ROM Limitation Comments: grossly WFL BUE; mild decrease end range shoulder flexion Strength: Upper Extremity Comments Right Upper Extremity Strength Comments: 4-/5 to 4+/5 Left Upper Extremity Strength Comments: 4-/5 to 4/5 Balance: Static Sitting;Dynamic Sitting;Static Standing;Dynamic Standing Static Sitting Balance: Contact Guard Assistance Dynamic Sitting Balance: Contact Guard Assistance Static Standing Balance: Minimal Assistance Dynamic Standing Balance: Minimal Assistance Activity Tolerance: Sitting Activity Sitting Activity: cognitive assessment Sitting Activity Tolerance (in minutes): 10 Please see discipline specific clinical documentation flowsheet for complete details for this therapy evaluation/treatment. SIGNATURE: Marily Gutierrez OTR/L PATIENT NAME: Elli Guerrero DATE: October 27, 2018 TIME: 11:07 AM MAGNESIUM BLOOD Collected: 10/27/2018 Status: F Source: [facility] 6:01 AM HEALTH SYSTEM REPOSITORY TYPE CODE TESTS RESULT OUT OF REFERENCE UNITS RANGE LAB MAG(LOINC) 1.6-2.6 mg/dL Magnesium Blood 2.2 Performed By: #### MAG #### [place] [address] HEMOGRAM/DIFF Collected: 10/27/2018 Status: F Source: [facility] 2:53 AM HEALTH SYSTEM REPOSITORY TYPE CODE TESTS RESULT OUT OF REFERENCE UNITS RANGE LAB WBC(LOINC) 3.98-10.04 thou/cmm WBC 5.56 LAB RBC(LOINC) 3.93-5.22 mil/cmm Low RBC 3.86 LAB HGB(LOINC) 11.2-15.7 g/dL Hgb 11.4 LAB HCT(LOINC) 34.1-44.9 % Hct 34.4 LAB MCV(LOINC) 79.4-94.8 fl MCV 89.1 LAB MCH(LOINC) 25.6-32.2 pg MCH 29.5 LAB MCHC(LOINC 31.6-34.8 % ) MCHC 33.1 LAB RDW(LOINC) 11.7-14.4 % RDW 13.5 LAB RDWSD(LOIN 36.4-46.3 fl C) RDW SD 43.8 LAB PLT(LOINC) 182-369 thou/cmm Low Platelet 120 LAB MPV(LOINC) 9.4-12.3 fl MPV 9.8 LAB SEG(LOINC) % Seg Neutrophil 61.0 LAB IGRE(LOINC % ) Immature Grans 0.40 LAB LYMPH(LOIN % C) Lymphocyte 29.3 LAB MNO(LOINC) % Monocyte 6.1 LAB EOSIN(LOIN % C) Eosinophil 2.7 LAB BASO(LOINC % ) Basophil 0.5 LAB SEGN(LOINC 1.56-6.13 thou/cmm ) Abs. Neut (ANC) 3.39 LAB IGAB(LOINC 0.00-0.05 thou/cmm ) Abs Immature Grans 0.02 LAB LYMN(LOINC 1.18-3.74 thou/cmm ) Abs. Lymph 1.63 LAB MONON(LOIN 0.27-0.70 thou/cmm C) Abs. Walsh 0.34 LAB EOSN(LOINC 0.00-0.31 thou/cmm ) Abs. Eosin 0.15 LAB BASON(LOIN 0.01-0.08 thou/cmm C) Abs. Baso 0.03 Performed By: #### CBCD1 #### [place] [address] PHOSPHORUS BLOOD Collected: 10/27/2018 Status: F Source: [facility] [address] [place] [address] SYSTEM REPOSITORY TYPE CODE TESTS RESULT OUT OF REFERENCE UNITS RANGE LAB PHOS(LOINC 2.5-4.9 mg/dL ) Phosphorus Blood 3.6 Performed By: #### PHOS #### [place] [address] COMPREHENSIVE PANEL Collected: 10/27/2018 Status: F Source: [facility] 2:53 [facility] SYSTEM REPOSITORY TYPE CODE TESTS RESULT OUT OF REFERENCE UNITS RANGE LAB NA(LOINC) 136-145 mEq/L Sodium Blood 139 LAB K(LOINC) 3.5-5.1 mEq/L Potassium Blood 3.5 Result Comment: SPECIMEN SLIGHTLY HEMOLYZED LAB CL(LOINC) 98-107 mEq/L Chloride Blood 107 LAB CO2(LOINC) 21-32 mEq/L CO2 Blood 25 LAB GLU(LOINC) 70-99 mg/dL Glucose High Blood 132 LAB BUN(LOINC) 7-18 mg/dL BUN Blood 10 LAB CREA(LOINC) 0.51-0.95 mg/dL Creatinine Blood 0.54 LAB CA(LOINC) 8.5-10.1 mg/dL Calcium Blood 9.1 LAB ALB(LOINC) 3.4-5.0 g/dL Albumin Low Blood 3.2 LAB TP(LOINC) 6.4-8.2 g/dL Total Protein 7.5 LAB AST(LOINC) 9-37 U/L AST-SGOT Blood 34 Result Comment: SPECIMEN SLIGHTLY HEMOLYZED LAB ALT(LOINC) 12-78 U/L ALT-SGPT Blood 25 LAB ALKP(LOINC) 46-116 U/L Alk Phosphatase 107 LAB BILIT(LOINC) 0.2-1.0 mg/dL Total Bilirubin 0.6 LAB ANGAP(LOINC) 8-16 Anion Gap 11 Performed By: #### P14 #### [place] [address] PROGRESS Observed: 10/26/2018 Status: COMPLETED Source: [facility] 11:36 PM CLINIC OTHER CAMPUS REPOSITORY HNO ID: [id number] Author: Cheng Rodrigues Service: Hospital Medicine Author Type: Physician Type: Progress Notes Filed: 10/27/2018 2:04 AM Note Text: RN called because the patient had a unwitnessed fall ~ 7.50 pm. Patient was examined at bedside. Patient remained awake, alert, and communicative. Seems confused. As per patient, he just wanted to go to the bathroom. No acute medical distress, hemodynamically stable. No feature of intoxication or encephalopathy. ROS is negative for any chest pain, SOB, headache, abdominal pain/distention, nausea/vomiting or any other active life threatening complaints. Physical Exam: Gen: No acute medical distress, hemodynamically stable Pain: None, 0/10 HEENT: NCAT, no hematoma, bruising, lacerations, or bleeding noted, PERRLA, EOMI, clear sclerae, no pallor Neck: Supple, no swelling or bruising noted, no palpable masses, ROM full CVS: RRR, S1S2 normal, no M/R/G Resp: Clear bilateral equal breath sounds, no added sounds. Abd: Soft, obese, nontender, nondistended, normoactive BS Back/MSK: No bumps, swelling, deformity or tenderness noted, no bruising or bleeding Ext: No bruising, tenderness or deformity noted; No pedal edema or swelling Assessment/Plan: # Unwitnessed Fall without any apparent external injuries Patient is AAOx3, Hemodynamically stable. No orthostatic complaints No sign or symptoms of trauma No sign of head injury No focal neurological deficits Placed on 1:1 Observation for High Fall risk For unwitnessed fall, CT head ordered - no new lesion. Orthostatic vitals and, neurocheck and telemetry monitoring Patient counseled to seek help if any help needed and verbalized understanding Counseled against walking unsupervised and patient verbalized understanding CT HEAD W/O CONTRAST Observed: 10/26/2018 Status: F Source: [facility] 8:31 PM HEALTH SYSTEM REPOSITORY Performed at [facility] APPROVED BY: DEBBIE SCHULZ MD EXAMINATION: CT HEAD W/O CONTRAST CLINICAL HISTORY: Subdural hematoma. Follow-up. TECHNIQUE: Serial axial images without IV contrast were obtained from the vertex to the foramen magnum. MQ: [id number] CT Dose-Length Product (DLP): 773 mGy*cm CT Dose Reduction Employed: Iterative recon COMPARISON: CT brain from 10/23/2018 RESULT: Post-operative change: None. Acute change: No evidence of an acute infarct or other acute parenchymal process. Hemorrhage: No new areas of new intracranial hemorrhage. Again noted are high attenuation blood byproducts adjacent to the posterior left inferior temporal gyrus. This parenchymal hematoma has decre ased in attenuation and size since the previous examination and measures approximately 3.5 x 0.7 cm down from 3.9 x 0.9 cm. Also noted are high attenuation subdural blood byproducts along the falx laye ring along the left tentorial leaf also decreased in prominence. Mass Lesion / Mass Effect: Left-sided subdural hematoma has become lower in attenuation since the previous examination but still measures approximately 3 mm at its deepest point. No significant mass effect. No midline shift or herniation is noted. Chronic change: Scattered patchy foci of low attenuation are present within supratentorial white matter which is a nonspecific finding but likely represents mild microvascular ischemia. Parenchyma: There is no significant volume loss. The brain parenchyma is otherwise within normal limits for age. Ventricles: The ventricles are within normal limits of size and configuration for age. Paranasal sinuses and skull base: The visualized paranasal sinuses are grossly clear. The skull base and imaged soft tissues are unremarkable. IMPRESSION: No new intracranial abnormalities. Interval evolution of the subdural blood byproducts with decreased conspicuity in attenuation when compared to the previous exam. No midline shift or herniation. NURSING PROG Observed: 10/26/2018 Status: COMPLETED Source: [facility] 8:05 PM [facility] REPOSITORY HNO ID: [id number] Author: Marily HenriquezRn) ANDREI Horton Service: Nursing Author Type: Registered Nurse Type: Nursing Progress Note Filed: 10/27/2018 1:48 AM Note Text: Nursing Progress Note Patient Name: Elli Guerrero Patient Location: [place] [address] [address]* Notified MD Rodrigues of patients vision changes. Patient is experiencing double and blurry vision. At this time patient states it has resolved. MD up to access patient. MD stated repeat head CT stable vision changes may be a side affect from a medication or due to her high anxiety. MD advising to have a sitter due to patient high fall risk. This note was completed by: Marily Horton RN NURSING PROG Observed: 10/26/2018 Status: COMPLETED Source: [facility] 7:52 PM [facility] REPOSITORY HNO ID: [id number] Author: Julia HenriquezRn) ANDREI Christianson Service: Nursing Author Type: Registered Nurse Type: Nursing Progress Note Filed: 10/26/2018 7:57 PM Note Text: Post Fall Assessment Elli Guerrero [id number] Witnessed: No How did fall occur: Getting up from BSC Location: Patient room Contributing factors: confused/disoriented, failure to call and sudden weakness Brief factual description: nurse informed pt on floor, noticed pt sitting on buttocks in front of BSC, pt denies injuries or hitting head, AxOx2, vitals stable, assist x3 off floor and into bed (*Document vital signs, neuro checks, blood sugars in the appropriate flow sheet.) Initial Physical Assessment Injury: No Patient hit head: No Immediate actions taken: Assisted back to bed / chair Name of LIP notified: Dr. Rodrigues Notify family as appropriate: Daughter Post fall interventions: Fall Huddle Conducted, Bed Alarm On, Frequent Observation, Apply a Yellow Wrist Band, Apply Hewitt Risk Symbol to the Door, Obtain an Order for PT/OT and My Safety Plan Updated This note was completed by:Julia Christianson RN THERAPY NT Observed: 10/26/2018 Status: COMPLETED Source: [facility] 5:33 PM CLINIC OTHER CAMPUS REPOSITORY HNO ID: [id number] Author: Carissa (PtEthan Castro Service: Physical Therapy Author Type: Physical Therapist Type: Therapy (PT/OT/Speech/Resp) Filed: 10/26/2018 5:38 PM Note Text: Physical Therapy Treatment SERVICE DATE: 10/26/2018 SERVICE TIME: 1716 to 1728 ROOM: [place] [address] Recommended Discharge Disposition: Subacute/SNF Justification For Post Acute Needs: Good premorbid functional status;Living the community premorbidly;Medically complex;Willing to participate;May not tolerate higher intensity programing;Anticipate that patient will require daily (5x/wk) skilled therapy in a post-acute facility setting at the time of acute hospital discharge Recommended Discharge Equipment: To Be Determined (by discharge facility) PT Recommendations to Nursing: Transfer to/from chair;With assist of 2 people Device: Hand Held Assist PT 6 Clicks Score: 10 Precautions/Activity Restrictions: Fall Risk;Lines/Tubes/Drains Precaution/Activity Restriction Comments: Continuous EEG, IV, telemetry, continuous pulse ox/BP, Perez Isolation Type: None ASSESSMENT : Patient presents with Present on Admission: - Epidural hematoma (HCC) - Essential (primary) hypertension - Type 2 diabetes mellitus (HCC) - Major depressive disorder, single episode, unspecified - Gastro-esophageal reflux disease without esophagitis - Bipolar disorder, unspecified (HCC) - Paroxysmal atrial fibrillation (HCC) - Anemia . Requires skilled PT for Gait training, functional mobility, therapeutic ex, pt. Ed, and dc planning/recommendations. Patient Disposition at Start of Session: Supine in Bed;Bed Alarm;Call Guido in Reach;SCDs Patient Disposition at End of Session: Supine in Bed;Call Guido in Reach;Bed Alarm;SCDs Tolerance Limited By Fatigue Physical Therapy Problem List: Decreased Activity Tolerance;Decreased Strength;Functional Mobility Impairment;Balance Impaired;Safety Deficits;Cognitive Deficit Patient /Caregiver Goals: Go Home Goals for Plan of Care: Rolling with: Verbal Cues Only Transfer supine to/from sit with: Minimal Assistance Transfer sit to/from stand with: Minimal Assistance Ambulate with: Minimal Assistance Distance: 50' intervals without LOB Device: Other: See Comment (least restrictive assistive device) Goal: pt to perform lower extremity strengthening ther-ex 2x15 reps Rehab Potential: Good PLAN: Treatment Frequency (times per week): 5 (2-5) Current admission Treatment Interventions: Education;Joint Mobility;Strengthening;Functional Mobility Training;Balance Training;Neuromuscular Re-education Plan of Care developed with: Patient TREATMENT INTERVENTIONS: Therapy Diagnosis: Reduced mobility-other;Muscle Weakness (generalized);Unsteadiness on feet Interventions Provided: Therapeutic Activity (09275);Therapeutic Exercise (17252) Therapeutic Exercise (97549) Treatment Minutes: 8 1 unit Skilled Intervention(s): Instruction in therapeutic exercise : assisted HS, AP, LAQ, QS. Verbal and tactile cuing provided during ex. to complete ROM. Facilitation of muscle control, optimal recruitment and alignment during transitional mvt. Cues throughout to stay on task. Therapeutic Activity (67961) Treatment Minutes: 4 0 units Skilled Intervention(s): Instructed patient in supine to sit pushing with upper extremities to sit up. Pt. Required increased assist for bed mobility today and to attain position EOB. Total Timed Code Treatment Minutes: 12 Total Treatment Time (minutes): 12 SUBJECTIVE: Current Hospital Course: Chart reviewed and no significant medical updates relevant to therapy were noted PAST MEDICAL HISTORY Diagnosis Date - Anemia - Bipolar affect, depressed (HCC) - Diabetes mellitus - Dyslipidemia - Elevated liver enzymes - Esophageal reflux - Fatty liver - GERD (gastroesophageal reflux disease) - Hypertension - Leukocytosis, unspecified - Obesity - Obstructive sleep apnea (adult) (pediatric) - PAF (paroxysmal atrial fibrillation) (HCC) - Personal history of colonic polyps - Smoking - Stroke (HCC) - Urge incontinence 02/01/2017 Reason for Physical Therapy Consult : PT evaluation Relevant Past Medical History: BTHA, bipolar, anemia Patient Report: I just want to go home; I think I can do it at home, my family will help me. I have to help my daughter watch her son. Pt. Demonstrates poor insight and judgement as to current deficits. Home Environment Patient Lives With: Spouse Assistance Available: oversize load pilot escort;24 Hour (spouse/daughter next door) Entry To Home: Stairs (we can put a rail on if we need to) Number Of Stairs Into Home: 3 Number Of Stairs To Bed/Bath: All one level once in home Tub/Shower Type: tub/shower Laundry: Family can provide IADL Equipment Owned: Wheeled Walker;Cane;Shower Chair Prior Functional Level: Within Functional Limits Prior Functional Level Comments: Patient admitted last week with SDH and required CGAx1 to safely ambulate 60'x2. D/C rec was for outpatient PT for balance impairments. OBJECTIVE: CURRENT FUNCTIONAL STATUS: Current Functional Mobility Assist Level Additional Information Rolling Moderate Assistance Supine to Sit Maximal Assistance Sit to Supine Moderate Assistance Scooting Maximal Assistance Sit to Stand Moderate Assistance (x2) Stand to Sit Moderate Assistance (x2) Bed to Chair Toilet/Commode Gait Moderate Assistance (x2) Gait Device: Hand Held Assist Gait Distance (feet): 5'x1 (bed to chair) Stairs Curb Step Car Transfer General Gait Deviations: Arm swing decreased;Lateral sway increased;Difficulty changing direction/turning;Non-functional gait speed Balance: Static Sitting;Static Standing;Dynamic Standing Static Sitting Balance: Stand By Assistance Static Standing Balance: Moderate Assistance Dynamic Standing Balance: Moderate Assistance JH-HLM: 3: Sit at edge of bed Please see discipline specific clinical documentation flowsheet for complete details for this therapy evaluation/treatment. SIGNATURE: Carissa Castro PT PATIENT NAME: Elli Guerrero DATE: October 26, 2018 TIME: 5:33 PM PROGRESS Observed: 10/26/2018 Status: COMPLETED Source: [facility] 11:26 AM CLINIC OTHER CAMPUS REPOSITORY HNO ID: [id number] Author: Chuck Delgado MD Service: Hospital Medicine Author Type: Physician Type: Progress Notes Filed: 10/26/2018 11:28 AM Note Text: DEPARTMENT OF HOSPITAL MEDICINE PROGRESS NOTE Interval History/Chief Complaints: follow up on SDH Subjective Patient was seen, more oriented, Denies fever, chills, n, v, cp, sob, palpitation, dysuria, or abdominal pain Objective PHYSICAL EXAM: BP 125/69 Pulse 51 Temp (Src) 97.9 (Oral) Resp 18 Ht 5' 4 (1.63m) Wt 245 lb 6 oz (111.3kg) SpO2 95% BMI 42.10 kg/(m2). General appearance: NAD, conversant Lungs: Clear to auscultation CV: Ns1s2 Abdomen: Soft, non tender Extremities: No peripheral edema or cyanosis MEDICATIONS: Reviewed Current hospital medications: cefTRIAXone iv piggyback 1 g in dextrose (iso-osmotic) 50 mL (ROCEPHIN) 1 g INTRAVENOUS q 24 H nystatin 5 mL oral liquid (MYCOSTATIN) 5 mL ORAL QID senna-docusate 8.6-50 mg 1 tablet (SENNA-S) 1 tablet ORAL BID metoprolol tartrate (short acting) 12.5 mg tab(s) (LOPRESSOR) 12.5 mg ORAL/FEEDING TUBE q 12 H hydrALAZINE 5 mg injection (APRESOLINE) 5 mg INTRAVENOUS q 4 H PRN miconazole 2 % 1 application topical powder (LOTRIMIN AF, DESENEX) 1 application TOPICAL BID nortriptyline 10 mg cap(s) (PAMELOR) 10 mg ORAL/FEEDING TUBE AT BEDTIME insulin lispro pen (rapid acting) (HumaLOG KWIKPEN) SUBCUTANEOUS w MEALS AND HS Hydrochlorothiazide 12.5 mg 12.5 mg ORAL/FEEDING TUBE DAILY hydroxychloroquine 200 mg (PLAQUENIL) 200 mg ORAL/FEEDING TUBE BID sertraline (ZOLOFT) tab(s) 150 mg 150 mg ORAL/FEEDING TUBE DAILY acetaminophen 650 mg tab(s) (TYLENOL) 650 mg ORAL/FEEDING TUBE q 4 H PRN metoclopramide HCl 10 mg tab(s) (REGLAN) 10 mg ORAL q 6 H PRN dextrose 40 % 15 g 15 g ORAL/FEEDING TUBE PRN glucagon 1 mg injection (GLUCAGEN) 1 mg INTRAMUSCULAR PRN dextrose 50% in water 25 mL syringe 12.5 g INTRAVENOUS PRN lithium carbonate ER 900 mg tab(s) 900 mg ORAL AT BEDTIME lithium carbonate ER 450 mg tab(s) 450 mg ORAL DAILY pantoprazole DR 40 mg tab(s) (PROTONIX) 40 mg ORAL DAILY (6 AM) NaCl 0.9% 3-5 mL 3-5 mL INTRAVENOUS q 12 H NaCl 0.9% iv infusion 100 mL/hr INTRAVENOUS CONTINUOUS ondansetron 4 mg tab(s) (ZOFRAN) 4 mg ORAL q 6 H PRN ondansetron (PF) 4 mg injection (ZOFRAN) 4 mg INTRAVENOUS q 6 H PRN magnesium hydroxide 400 mg/5 mL 30 mL (MOM) 30 mL ORAL DAILY PRN bisacodyl 10 mg suppository (DULCOLAX) 10 mg RECTAL DAILY PRN oxyCODONE IR 5-10 mg tab(s) (ROXICODONE) 5-10 mg ORAL q 3 H PRN fentaNYL 50 mcg/mL 25-50 mcg injection (SUBLIMAZE) 25-50 mcg INTRAVENOUS q 1 H PRN DATA: Diagnostic tests reviewed for today's visit: CBC: Recent Labs 10/26/18 0251 WBC 6.20 RBC 3.96 HB 11.6 HCT 34.9 PLT 118* MCV 88.1 MCH 29.3 MPV 9.8 RDW 13.2 Coags: No results for input(s): INR, APTT in the last 24 hours. Invalid input(s): PT BMP: Recent Labs 10/26/18 025 NA 137 K 3.3* CHLOR 106 CO2 23 BUN 10 CREAT 0.45* GLUC 127* CMP: Recent Labs 10/26/18 025 NA 137 K 3.3* CHLOR 106 CO2 23 BUN 10 CREAT 0.45* GLUC 127* TPROT 7.4 CA 9.4 MG 2.2 TBILI 0.6 ALKPHOS 111 ALT 22 AST 21 ANION 11 Recent Labs 10/26/18 025 TPROT 7.4 ALB 3.3* ALT 22 AST 21 ALKPHOS 111 TBILI 0.6 MG/PHOS: Recent Labs 10/26/18 025 MG 2.2 P 3.2 Renal Panel: Recent Labs 10/26/18 0251 CREAT 0.45* BUN 10 GLUC 127* CA 9.4 P 3.2 CHLOR 106 K 3.3* CO2 23 NA 137 Heme: No results for input(s): RETICP, ABSRETIC, LD, BRENNAN, FE, TIBC, TRANSFERSAT in the last 24 hours. Albumin/Creat Ratio (mg/g) Date Value 04/01/2018 15 Most recent labs/microbiology/imaging were reviewed independently and discussed with the patient Assessment/Plan Active Problems: # UTI, UA is positive, c/w LIANNA simon on Bactrim # Possible vaginal bleeding, resolved, no current bleeding, Lab Associate evaluated the patient and there was no current bleeding # Subdural hematoma (HCC) POA: Yes Assessment AND Plan: Patient with a recent history of a fall with TBI and subdural hematoma ?Repeat CT with stable hematoma and mass effect ?Neurosurgery recommend no intervention ? # Type 2 diabetes mellitus (HCC) POA: Yes Assessment AND Plan: stable, c/w current tx # Essential (primary) hypertension POA: Yes Assessment AND Plan: stable, continue current tx # Bipolar disorder, unspecified (HCC) POA: Yes Assessment AND Plan: on lithium, level is below range but her sym are stable # Paroxysmal atrial fibrillation (HCC) POA: Yes Assessment AND Plan: in NSR, continue BB For SNF, resident care associate following SIGNATURE: Chuck Delgado MD PATIENT NAME: Elli Guerrero TIME: 12:45 PM PAGER/CONTACT #: HEMOGRAM/DIFF Collected: 10/26/2018 Status: F Source: [facility] 2:51 AM HEALTH SYSTEM REPOSITORY TYPE CODE TESTS RESULT OUT OF REFERENCE UNITS RANGE LAB WBC(LOINC) 3.98-10.04 thou/cmm WBC 6.20 LAB RBC(LOINC) 3.93-5.22 mil/cmm RBC 3.96 LAB HGB(LOINC) 11.2-15.7 g/dL Hgb 11.6 LAB HCT(LOINC) 34.1-44.9 % Hct 34.9 LAB MCV(LOINC) 79.4-94.8 fl MCV 88.1 LAB MCH(LOINC) 25.6-32.2 pg MCH 29.3 LAB MCHC(LOINC 31.6-34.8 % ) MCHC 33.2 LAB RDW(LOINC) 11.7-14.4 % RDW 13.2 LAB RDWSD(LOIN 36.4-46.3 fl C) RDW SD 42.4 LAB PLT(LOINC) 182-369 thou/cmm Low Platelet 118 LAB MPV(LOINC) 9.4-12.3 fl MPV 9.8 LAB SEG(LOINC) % Seg Neutrophil 64.7 LAB IGRE(LOINC % ) Immature Grans 0.50 LAB LYMPH(LOIN % C) Lymphocyte 26.9 LAB MNO(LOINC) % Monocyte 5.3 LAB EOSIN(LOIN % C) Eosinophil 2.4 LAB BASO(LOINC % ) Basophil 0.2 LAB SEGN(LOINC 1.56-6.13 thou/cmm ) Abs. Neut (ANC) 4.01 LAB IGAB(LOINC 0.00-0.05 thou/cmm ) Abs Immature Grans 0.03 LAB LYMN(LOINC 1.18-3.74 thou/cmm ) Abs. Lymph 1.67 LAB MONON(LOIN 0.27-0.70 thou/cmm C) Abs. Walsh 0.33 LAB EOSN(LOINC 0.00-0.31 thou/cmm ) Abs. Eosin 0.15 LAB BASON(LOIN 0.01-0.08 thou/cmm C) Abs. Baso 0.01 Performed By: #### CBCD1 #### [place] [address] MAGNESIUM BLOOD Collected: 10/26/2018 Status: F Source: [facility] 2:[address] [place] [address] SYSTEM REPOSITORY TYPE CODE TESTS RESULT OUT OF REFERENCE UNITS RANGE LAB MAG(LOINC) 1.6-2.6 mg/dL Magnesium Blood 2.2 Performed By: #### MAG #### [place] [address] PHOSPHORUS BLOOD Collected: 10/26/2018 Status: F Source: [facility] 2:51 HEALTH SYSTEM REPOSITORY TYPE CODE TESTS RESULT OUT OF REFERENCE UNITS RANGE LAB PHOS(LOINC 2.5-4.9 mg/dL ) Phosphorus Blood 3.2 Performed By: #### PHOS #### [place] [address] COMPREHENSIVE PANEL Collected: 10/26/2018 Status: F Source: [facility] 2:[facility] REPOSITORY TYPE CODE TESTS RESULT OUT OF REFERENCE UNITS RANGE LAB NA(LOINC) 136-145 mEq/L Sodium Blood 137 LAB K(LOINC) 3.5-5.1 mEq/L Low Potassium Blood 3.3 LAB CL(LOINC) 98-107 mEq/L Chloride Blood 106 LAB CO2(LOINC) 21-32 mEq/L CO2 Blood 23 LAB GLU(LOINC) 70-99 mg/dL Glucose High Blood 127 LAB BUN(LOINC) 7-18 mg/dL BUN Blood 10 LAB CREA(LOINC 0.51-0.95 mg/dL ) Low Creatinine Blood 0.45 LAB CA(LOINC) 8.5-10.1 mg/dL Calcium Blood 9.4 LAB ALB(LOINC) 3.4-5.0 g/dL Low Albumin Blood 3.3 LAB TP(LOINC) 6.4-8.2 g/dL Total Protein 7.4 LAB AST(LOINC) 9-37 U/L AST-SGOT Blood 21 LAB ALT(LOINC) 12-78 U/L ALT-SGPT Blood 22 LAB ALKP(LOINC 46-116 U/L ) Alk Phosphatase 111 LAB BILIT(LOIN 0.2-1.0 mg/dL C) Total Bilirubin 0.6 LAB ANGAP(LOIN 8-16 C) Anion Gap 11 Performed By: #### P14 #### [facility] [address] [place] [address] PROGRESS Observed: 10/25/2018 Status: COMPLETED Source: [facility] 11:36 AM CLINIC OTHER CAMPUS REPOSITORY HNO ID: [id number] Author: Chuck Delgado MD Service: Hospital Medicine Author Type: Physician Type: Progress Notes Filed: 10/25/2018 11:45 AM Note Text: DEPARTMENT OF HOSPITAL MEDICINE PROGRESS NOTE Interval History/Chief Complaints: follow up on SDH Subjective Patient was seen, more oriented, spoke to her daughter Darvin over the phone, no more vaginal bleeding Denies fever, chills, n, v, cp, sob, palpitation, dysuria, or abdominal pain Objective PHYSICAL EXAM: BP 130/64 Pulse 55 Temp (Src) 99 (Oral) Resp 18 Ht 5' 4 (1.63m) Wt 251 lb 5.2 oz (114.0kg) SpO2 92% BMI 43.12 kg/(m2). General appearance: NAD, conversant Lungs: Clear to auscultation CV: Ns1s2 Abdomen: Soft, non tender Extremities: No peripheral edema or cyanosis MEDICATIONS: Reviewed Current hospital medications: cefTRIAXone iv piggyback 1 g in dextrose (iso-osmotic) 50 mL (ROCEPHIN) 1 g INTRAVENOUS q 24 H nystatin 5 mL oral liquid (MYCOSTATIN) 5 mL ORAL QID senna-docusate 8.6-50 mg 1 tablet (SENNA-S) 1 tablet ORAL BID metoprolol tartrate (short acting) 12.5 mg tab(s) (LOPRESSOR) 12.5 mg ORAL/FEEDING TUBE q 12 H hydrALAZINE 5 mg injection (APRESOLINE) 5 mg INTRAVENOUS q 4 H PRN miconazole 2 % 1 application topical powder (LOTRIMIN AF, DESENEX) 1 application TOPICAL BID nortriptyline 10 mg cap(s) (PAMELOR) 10 mg ORAL/FEEDING TUBE AT BEDTIME insulin lispro pen (rapid acting) (HumaLOG KWIKPEN) SUBCUTANEOUS w MEALS AND HS Hydrochlorothiazide 12.5 mg 12.5 mg ORAL/FEEDING TUBE DAILY hydroxychloroquine 200 mg (PLAQUENIL) 200 mg ORAL/FEEDING TUBE BID sertraline (ZOLOFT) tab(s) 150 mg 150 mg ORAL/FEEDING TUBE DAILY acetaminophen 650 mg tab(s) (TYLENOL) 650 mg ORAL/FEEDING TUBE q 4 H PRN metoclopramide HCl 10 mg tab(s) (REGLAN) 10 mg ORAL q 6 H PRN dextrose 40 % 15 g 15 g ORAL/FEEDING TUBE PRN glucagon 1 mg injection (GLUCAGEN) 1 mg INTRAMUSCULAR PRN dextrose 50% in water 25 mL syringe 12.5 g INTRAVENOUS PRN lithium carbonate ER 900 mg tab(s) 900 mg ORAL AT BEDTIME lithium carbonate ER 450 mg tab(s) 450 mg ORAL DAILY pantoprazole DR 40 mg tab(s) (PROTONIX) 40 mg ORAL DAILY (6 AM) NaCl 0.9% 3-5 mL 3-5 mL INTRAVENOUS q 12 H NaCl 0.9% iv infusion 100 mL/hr INTRAVENOUS CONTINUOUS ondansetron 4 mg tab(s) (ZOFRAN) 4 mg ORAL q 6 H PRN ondansetron (PF) 4 mg injection (ZOFRAN) 4 mg INTRAVENOUS q 6 H PRN magnesium hydroxide 400 mg/5 mL 30 mL (MOM) 30 mL ORAL DAILY PRN bisacodyl 10 mg suppository (DULCOLAX) 10 mg RECTAL DAILY PRN oxyCODONE IR 5-10 mg tab(s) (ROXICODONE) 5-10 mg ORAL q 3 H PRN fentaNYL 50 mcg/mL 25-50 mcg injection (SUBLIMAZE) 25-50 mcg INTRAVENOUS q 1 H PRN DATA: Diagnostic tests reviewed for today's visit: CBC: Recent Labs 10/25/18 0340 WBC 8.89 RBC 4.28 HB 12.4 HCT 37.8 PLT 129* MCV 88.3 MCH 29.0 MPV 9.7 RDW 13.4 Coags: No results for input(s): INR, APTT in the last 24 hours. Invalid input(s): PT BMP: Recent Labs 10/25/18 0340 NA 137 K 3.4* CHLOR 103 CO2 26 BUN 11 CREAT 0.43* GLUC 145* CMP: Recent Labs 10/25/18 0340 NA 137 K 3.4* CHLOR 103 CO2 26 BUN 11 CREAT 0.43* GLUC 145* TPROT 7.9 CA 9.4 MG 2.1 TBILI 0.8 ALKPHOS 119* ALT 25 AST 25 ANION 11 Recent Labs 10/25/18 0340 TPROT 7.9 ALB 3.6 ALT 25 AST 25 ALKPHOS 119* TBILI 0.8 MG/PHOS: Recent Labs 10/25/18 0340 MG 2.1 P 4.0 Renal Panel: Recent Labs 10/25/18 0340 CREAT 0.43* BUN 11 GLUC 145* CA 9.4 P 4.0 CHLOR 103 K 3.4* CO2 26 NA 137 Heme: No results for input(s): RETICP, ABSRETIC, LD, BRENNAN, FE, TIBC, TRANSFERSAT in the last 24 hours. Albumin/Creat Ratio (mg/g) Date Value 04/01/2018 15 Most recent labs/microbiology/imaging were reviewed independently and discussed with the patient Assessment/Plan Active Problems: # UTI, UA is positive, c/w rocephin, pending U cx # Possible vaginal bleeding, no current bleeding, Lab Associate evaluated the patient and there was no current bleeding, if recurrent will need urology eval # Subdural hematoma (HCC) POA: Yes Assessment AND Plan: Patient with a recent history of a fall with TBI and subdural hematoma ?Repeat CT with stable hematoma and mass effect ?Neurosurgery recommend no intervention ? # Type 2 diabetes mellitus (HCC) POA: Yes Assessment AND Plan: stable, c/w current tx # Essential (primary) hypertension POA: Yes Assessment AND Plan: stable, continue current tx # Bipolar disorder, unspecified (HCC) POA: Yes Assessment AND Plan: on lithium, level is below range but her sym are stable # Paroxysmal atrial fibrillation (HCC) POA: Yes Assessment AND Plan: in NSR, continue BB SIGNATURE: Chuck Delgado MD PATIENT NAME: Elli Guerrero TIME: 12:45 PM PAGER/CONTACT #: CASE MANAGEM Observed: 10/25/2018 Status: COMPLETED Source: [facility] 11:27 AM CLINIC OTHER CAMPUS REPOSITORY HNO ID: [id number] Author: Patsy Warren (Sw) Service: Care Management Author Type: Bar Turner Type: Care Mgt Progress Note Filed: 10/25/2018 11:31 AM Note Text: CARE MANAGEMENT PROGRESS NOTE SERVICE DATE: 10/25/2018 SERVICE TIME: 11:28 AM LOS: 5 days Advanced Directives Met with patient who presents as lethargic, not staying awake during conversation. Patient not able to say if she wants to complete HCPOA or not. Left documents in her room, should she become more alert and want to complete documents. Also updated RN who can contact social work if patient wants to complete documents. . SIGNATURE: JAMES Dubose PATIENT NAME: Elli Guerrero DATE: October 25, 2018 TIME: 11:27 AM PAGER/CONTACT #: [phone] HEMOGRAM/DIFF Collected: 10/25/2018 Status: F Source: [facility] 3:40 AM HEALTH SYSTEM REPOSITORY TYPE CODE TESTS RESULT OUT OF REFERENCE UNITS RANGE LAB WBC(LOINC) 3.98-10.04 thou/cmm WBC 8.89 LAB RBC(LOINC) 3.93-5.22 mil/cmm RBC 4.28 LAB HGB(LOINC) 11.2-15.7 g/dL Hgb 12.4 LAB HCT(LOINC) 34.1-44.9 % Hct 37.8 LAB MCV(LOINC) 79.4-94.8 fl MCV 88.3 LAB MCH(LOINC) 25.6-32.2 pg MCH 29.0 LAB MCHC(LOINC 31.6-34.8 % ) MCHC 32.8 LAB RDW(LOINC) 11.7-14.4 % RDW 13.4 LAB RDWSD(LOIN 36.4-46.3 fl C) RDW SD 43.0 LAB PLT(LOINC) 182-369 thou/cmm Low Platelet 129 LAB MPV(LOINC) 9.4-12.3 fl MPV 9.7 LAB SEG(LOINC) % Seg Neutrophil 78.0 LAB IGRE(LOINC % ) Immature Grans 0.40 LAB LYMPH(LOIN % C) Lymphocyte 15.1 LAB MNO(LOINC) % Monocyte 4.8 LAB EOSIN(LOIN % C) Eosinophil 1.6 LAB BASO(LOINC % ) Basophil 0.1 LAB SEGN(LOINC 1.56-6.13 thou/cmm ) Abs. High Neut (ANC) 6.93 LAB IGAB(LOINC 0.00-0.05 thou/cmm ) Abs Immature Grans 0.04 LAB LYMN(LOINC 1.18-3.74 thou/cmm ) Abs. Lymph 1.34 LAB MONON(LOIN 0.27-0.70 thou/cmm C) Abs. Walsh 0.43 LAB EOSN(LOINC 0.00-0.31 thou/cmm ) Abs. Eosin 0.14 LAB BASON(LOIN 0.01-0.08 thou/cmm C) Abs. Baso 0.01 Performed By: #### CBCD1 #### [place] [address] MAGNESIUM BLOOD Collected: 10/25/2018 Status: F Source: [facility] 3:40 HEALTH SYSTEM REPOSITORY TYPE CODE TESTS RESULT OUT OF REFERENCE UNITS RANGE LAB MAG(LOINC) 1.6-2.6 mg/dL Magnesium Blood 2.1 Performed By: #### MAG #### [place] [address] PHOSPHORUS BLOOD Collected: 10/25/2018 Status: F Source: [facility] 3:40 AM HEALTH SYSTEM REPOSITORY TYPE CODE TESTS RESULT OUT OF REFERENCE UNITS RANGE LAB PHOS(LOINC 2.5-4.9 mg/dL ) Phosphorus Blood 4.0 Performed By: #### PHOS #### [place] [address] COMPREHENSIVE PANEL Collected: 10/25/2018 Status: F Source: [facility] 3:40 HEALTH SYSTEM REPOSITORY TYPE CODE TESTS RESULT OUT OF REFERENCE UNITS RANGE LAB NA(LOINC) 136-145 mEq/L Sodium Blood 137 LAB K(LOINC) 3.5-5.1 mEq/L Low Potassium Blood 3.4 LAB CL(LOINC) 98-107 mEq/L Chloride Blood 103 LAB CO2(LOINC) 21-32 mEq/L CO2 Blood 26 LAB GLU(LOINC) 70-99 mg/dL Glucose High Blood 145 LAB BUN(LOINC) 7-18 mg/dL BUN Blood 11 LAB CREA(LOINC 0.51-0.95 mg/dL ) Low Creatinine Blood 0.43 LAB CA(LOINC) 8.5-10.1 mg/dL Calcium Blood 9.4 LAB ALB(LOINC) 3.4-5.0 g/dL Albumin Blood 3.6 LAB TP(LOINC) 6.4-8.2 g/dL Total Protein 7.9 LAB AST(LOINC) 9-37 U/L AST-SGOT Blood 25 LAB ALT(LOINC) 12-78 U/L ALT-SGPT Blood 25 LAB ALKP(LOINC 46-116 U/L ) Alk High Phosphatase 119 LAB BILIT(LOIN 0.2-1.0 mg/dL C) Total Bilirubin 0.8 LAB ANGAP(LOIN 8-16 C) Anion Gap 11 Performed By: #### P14 #### [place] [address] NURSING PROG Observed: 10/24/2018 Status: COMPLETED Source: [facility] 4:20 PM [facility] REPOSITORY HNO ID: [id number] Author: Bijal (Rn) ANDREI Fernandez Service: Nursing Author Type: Registered Nurse Type: Nursing Progress Note Filed: 10/24/2018 9:19 PM Note Text: Dr Schmidt at nurses station. informed pt barely arousable. stated he was not going to do another CT as they have all shown improvement. THERAPY NT Observed: 10/24/2018 Status: COMPLETED Source: [facility] 4:03 PM [facility] REPOSITORY HNO ID: [id number] Author: Shawn Dorman) [place] Service: Physical Therapy Author Type: [employer] Sharpshooter Type: Therapy (PT/OT/Speech/Resp) Filed: 10/24/2018 4:03 PM Note Text: Attestation signed by Mindi (Pt) Anish at 10/24/2018 4:18 PM I reviewed and agree with the documentation corresponding to this therapy visit. SIGNATURE: Mindi Oconnell PT DATE: October 24, 2018 TIME: 4:18 PM PHYSICAL THERAPY MISSED VISIT SERVICE DATE: 10/24/2018 SERVICE TIME: 1603 to 1603 ROOM: [place] [address] Attempted Treatment. Patient not seen due to Sleeping. Will continue to follow as able. SIGNATURE: Shawn Fung PTA PATIENT NAME: Elli Guerrero DATE: October 24, 2018 TIME: 4:03 PM CASE MANAGEM Observed: 10/24/2018 Status: COMPLETED Source: [facility] 3:[address] [facility] OTHER [place] REPOSITORY HNO ID: [id number] Author: Nataliia Sales) ANDREI Whiteside Service: Care Management Author Type: Registered Nurse Type: Care Mgt Progress Note Filed: 10/24/2018 4:00 PM Note Text: CARE MANAGEMENT PROGRESS NOTE SERVICE DATE: 10/24/2018 SERVICE TIME: 1557 LOS: 4 days FREEDOM OF CHOICE GIVEN: Provider List: Longterm Facility Pre[facility]: [facility] Referrals sent. Zabrina Yanes able to accept and will have a private room. Will need precert on Saturday. SIGNATURE: Nataliia Whiteside RN PATIENT NAME: Elli Guerrero DATE: October 24, 2018 TIME: 3:58 PM PAGER/CONTACT #: [phone] CONSULT Observed: 10/24/2018 Status: COMPLETED Source: [facility] 2:[address] [facility] OTHER CAMPUS REPOSITORY HNO ID: [id number] Author: Daina Das DO Service: Gynecology Author Type: Resident Type: Consults Filed: 10/24/2018 3:39 PM Note Text: Attestation signed by Jeff Adair at 10/25/2018 9:24 AM I agree with resident's assessment and plan [employer]LL[employer] CONSULT PROGRESS NOTE SERVICE DATE: 10/24/2018 SERVICE TIME: 2:44 PM Subjective HISTORY OF THE PRESENT ILLNESS: This 58 year old CF who is currently admitted for epidural hematoma in setting of recent fall with subdural hematoma and TBI. Patient's PMH complicated by A. Fib, obesity, HTN, bipolar disorder. Patient had episode of vaginal bleeding on 10/23. Per RN patient had blood on incontinence pad. Patient has a history of hysterectomy. Patient currently lethargic and sleeping. She does not respond to verbal stimuli and responds to sternal rub. Per patient's daughters patient was more alert yesterday but has been lethargic today. Patient's daughters state she has a history of TVH, however review of records provide conflicting information stating patient had a LEONILA, BSO. Patient currently unable to provide information about her medical care. Patient's daughters report she had hysterectomy performed for precancer. Hysterectomy was performed in [place] by Dr. Eckert. She follows regularly with her She has no prior history of vaginal bleeding. Daughter's report patient has bladder prolapse and a history of chronic UTIs. Objective PHYSICAL EXAM: BP 119/71 Pulse (!) 55 Temp 36.4 ?C (97.5 ?F) Resp 18 Ht 162.6 cm (5' 4) Wt 114 kg (251 lb 5.2 oz) SpO2 97% BMI 43.14 kg/m? General: In no apparent distress, sleeping and lethargic, does not respond to questions Cardiovascular: Irregular rate and rythm Pulmonary: Lungs clear to all pearson. Abdomen: Soft, Morbidly obese, no masses palpated however 2/2 to body habitus Sterile Speculum Exam: Not completed secondary to patients inability to consent and patient not cooperating with exam Extremities: No calf tenderness, no lower extremity edema. Sequential Compression Devices intact. Current hospital medications: cefTRIAXone iv piggyback 1 g in dextrose (iso-osmotic) 50 mL (ROCEPHIN) 1 g INTRAVENOUS q 24 H nystatin 5 mL oral liquid (MYCOSTATIN) 5 mL ORAL QID senna-docusate 8.6-50 mg 1 tablet (SENNA-S) 1 tablet ORAL BID metoprolol tartrate (short acting) 12.5 mg tab(s) (LOPRESSOR) 12.5 mg ORAL/FEEDING TUBE q 12 H hydrALAZINE 5 mg injection (APRESOLINE) 5 mg INTRAVENOUS q 4 H PRN miconazole 2 % 1 application topical powder (LOTRIMIN AF, DESENEX) 1 application TOPICAL BID nortriptyline 10 mg cap(s) (PAMELOR) 10 mg ORAL/FEEDING TUBE AT BEDTIME insulin lispro pen (rapid acting) (HumaLOG KWIKPEN) SUBCUTANEOUS w MEALS AND HS Hydrochlorothiazide 12.5 mg 12.5 mg ORAL/FEEDING TUBE DAILY hydroxychloroquine 200 mg (PLAQUENIL) 200 mg ORAL/FEEDING TUBE BID sertraline (ZOLOFT) tab(s) 150 mg 150 mg ORAL/FEEDING TUBE DAILY acetaminophen 650 mg tab(s) (TYLENOL) 650 mg ORAL/FEEDING TUBE q 4 H PRN metoclopramide HCl 10 mg tab(s) (REGLAN) 10 mg ORAL q 6 H PRN dextrose 40 % 15 g 15 g ORAL/FEEDING TUBE PRN glucagon 1 mg injection (GLUCAGEN) 1 mg INTRAMUSCULAR PRN dextrose 50% in water 25 mL syringe 12.5 g INTRAVENOUS PRN lithium carbonate ER 900 mg tab(s) 900 mg ORAL AT BEDTIME lithium carbonate ER 450 mg tab(s) 450 mg ORAL DAILY pantoprazole DR 40 mg tab(s) (PROTONIX) 40 mg ORAL DAILY (6 AM) NaCl 0.9% 3-5 mL 3-5 mL INTRAVENOUS q 12 H NaCl 0.9% iv infusion 100 mL/hr INTRAVENOUS CONTINUOUS ondansetron 4 mg tab(s) (ZOFRAN) 4 mg ORAL q 6 H PRN ondansetron (PF) 4 mg injection (ZOFRAN) 4 mg INTRAVENOUS q 6 H PRN magnesium hydroxide 400 mg/5 mL 30 mL (MOM) 30 mL ORAL DAILY PRN bisacodyl 10 mg suppository (DULCOLAX) 10 mg RECTAL DAILY PRN oxyCODONE IR 5-10 mg tab(s) (ROXICODONE) 5-10 mg ORAL q 3 H PRN fentaNYL 50 mcg/mL 25-50 mcg injection (SUBLIMAZE) 25-50 mcg INTRAVENOUS q 1 H PRN DATA: Diagnostic tests reviewed for today's visit: Most recent labs and imaging results. Assessment/Plan 58 year old CF admitted for epidural hematoma/subdural hematoma/TBI with possible vaginal bleeding 1. Possible vaginal bleeding -Bleeding of unknown origin- bleeding was found on peripad. No bleeding since that time. Patient unable to consent, or tolerate exam. -External inspection of vulva and limited exam of vagina shows no bleeding or masses- although exam extremely limited -Patient has a history of hysterectomy (possibly TVH or LEONILA, BSO) -Currently being treated for a UTI - which could be a source of vaginal bleeding -Reviewed possibly etiologies with patient's daughter including vaginal atrophy, urinary or GI origin -Recommend outpatient follow up when patient is able to tolerate exam/consent for exam -Discussed with patient's daughters and RN that if patient were to have a bleeding episode again we could evaluate at that point Will sign off from a Gynecology standpoint. Thank you for consult. Please notify us if patient has anymore acute bleeding episodes. Recommend outpatient follow up with Senior Product Integrity Engineer. DAISY [employer] SIGNATURE: Daina Das DO PATIENT NAME: Elli Guerrero DATE: October 24, 2018 TIME: 2:44 PM PAGER: [phone] PROGRESS Observed: 10/24/2018 Status: COMPLETED Source: [facility] 1:53 PM CLINIC OTHER CAMPUS REPOSITORY HNO ID: [id number] Author: Evita Celis Service: Neurosurgery Author Type: Nurse Practitioner Type: Progress Notes Filed: 10/24/2018 2:03 PM Note Text: Neurosurgery Inpatient Progress Note Attending: Dr. Chuck Delgado MD Location: [place] [address] Hospital Day: 5 ASSESSMENT/ PLAN: Subdural Hemorrhage - neuro exam stable - Repeat CT stable - no surgical intervention - Neurosurgery will s/o, please call with any questions or concerns. - follow up with concussion clinic Dr. Mike, appointment will be arranged with office INTERVAL HPI (Subjective): is a 58 year old female who is more awake today. Playing on her phone. She is reporting a mild RODRIGUEZ and some double vision. Denies any n/t, n/v, or weakness. MEDICATIONS: Current hospital medications: cefTRIAXone iv piggyback 1 g in dextrose (iso-osmotic) 50 mL (ROCEPHIN) 1 g INTRAVENOUS q 24 H nystatin 5 mL oral liquid (MYCOSTATIN) 5 mL ORAL QID senna-docusate 8.6-50 mg 1 tablet (SENNA-S) 1 tablet ORAL BID metoprolol tartrate (short acting) 12.5 mg tab(s) (LOPRESSOR) 12.5 mg ORAL/FEEDING TUBE q 12 H hydrALAZINE 5 mg injection (APRESOLINE) 5 mg INTRAVENOUS q 4 H PRN miconazole 2 % 1 application topical powder (LOTRIMIN AF, DESENEX) 1 application TOPICAL BID nortriptyline 10 mg cap(s) (PAMELOR) 10 mg ORAL/FEEDING TUBE AT BEDTIME insulin lispro pen (rapid acting) (HumaLOG KWIKPEN) SUBCUTANEOUS w MEALS AND HS Hydrochlorothiazide 12.5 mg 12.5 mg ORAL/FEEDING TUBE DAILY hydroxychloroquine 200 mg (PLAQUENIL) 200 mg ORAL/FEEDING TUBE BID sertraline (ZOLOFT) tab(s) 150 mg 150 mg ORAL/FEEDING TUBE DAILY acetaminophen 650 mg tab(s) (TYLENOL) 650 mg ORAL/FEEDING TUBE q 4 H PRN metoclopramide HCl 10 mg tab(s) (REGLAN) 10 mg ORAL q 6 H PRN dextrose 40 % 15 g 15 g ORAL/FEEDING TUBE PRN glucagon 1 mg injection (GLUCAGEN) 1 mg INTRAMUSCULAR PRN dextrose 50% in water 25 mL syringe 12.5 g INTRAVENOUS PRN lithium carbonate ER 900 mg tab(s) 900 mg ORAL AT BEDTIME lithium carbonate ER 450 mg tab(s) 450 mg ORAL DAILY pantoprazole DR 40 mg tab(s) (PROTONIX) 40 mg ORAL DAILY (6 AM) NaCl 0.9% 3-5 mL 3-5 mL INTRAVENOUS q 12 H NaCl 0.9% iv infusion 100 mL/hr INTRAVENOUS CONTINUOUS ondansetron 4 mg tab(s) (ZOFRAN) 4 mg ORAL q 6 H PRN ondansetron (PF) 4 mg injection (ZOFRAN) 4 mg INTRAVENOUS q 6 H PRN magnesium hydroxide 400 mg/5 mL 30 mL (MOM) 30 mL ORAL DAILY PRN bisacodyl 10 mg suppository (DULCOLAX) 10 mg RECTAL DAILY PRN oxyCODONE IR 5-10 mg tab(s) (ROXICODONE) 5-10 mg ORAL q 3 H PRN fentaNYL 50 mcg/mL 25-50 mcg injection (SUBLIMAZE) 25-50 mcg INTRAVENOUS q 1 H PRN OBJECTIVE: LABS: CBC: Recent Labs 10/24/1843110/23/1835710/22/1841910/21/1842910/20/182033 WBC 8.35 7.08 7.48 8.10 7.70 HB 14.2 11.7 12.4 12.2 12.7 HCT 43.2 35.9 38.3 37.8 39.0 PLT 123* 116* 115* 125* 132* MCV 88.9 89.3 89.7 90.2 89.7 COAG: Recent Labs 10/20/182033 APTT 28.0 INR 1.08 BMP: Recent Labs 10/24/1843110/23/1835710/22/1841910/21/1842910/20/182033 GLUC 136* 123* 130* 153* 115* NA 137 137 137 137 138 K 3.5 3.6 3.5 5.4* 3.6 CHLOR 102 107 106 108* 106 CO2 27 23 24 23 21 ANION 12 11 11 11 15 BUN 11 9 10 10 9 CREAT 0.46* 0.54 0.47* 0.47* 0.54 CHEM: Recent Labs 10/24/1843110/23/1835710/22/1841910/21/1842910/20/182033 ALB 4.0 3.5 -- 4.0 3.9 TPROT 8.6* 7.7 -- 8.1 8.6* CA 10.4* 9.5 9.4 9.3 9.5 MG 2.4 2.2 2.2 2.2 2.1 HEPATIC: Recent Labs 10/24/18 0432 10/23/18 0358 10/21/18 0430 10/20/18 2034 ALKPHOS 128* 102 114 118* ALT 25 22 20 23 AST 27 32 30 20 TBILI 1.0 0.8 0.8 0.8 URINALYSIS: Recent Labs 10/24/18 0755 10/20/18 2155 SPGR 1.016 1.027 UGLUC NEGATIVE NEGATIVE UBILI see below* NEGATIVE UKET 15* 15* UPROT TRACE* NEGATIVE UROBIL 1.0 1.0 UWBC -- 1.5 LEUKEST SMALL* NEGATIVE VITAL SIGNS 24 HOUR REVIEW: 10/23/18 1900 10/23/18 2300 10/24/18 0409 10/24/18 0838 BP: 155/71 129/69 137/68 119/71 Pulse: (!) 52 (!) 55 (!) 51 (!) 55 Resp: Temp: 37.1 ?C (98.8 ?F) 36.5 ?C (97.7 ?F) 36.9 ?C (98.4 ?F) 36.4 ?C (97.5 ?F) TempSrc: Oral Oral SpO2: 94% 93% 96% 97% Weight: Height: No intake or output data in the 24 hours ending 10/24/18 1353 ALLERGIES: ALLERGIES No Known Allergies DATA REVIEW [facility] records reviewed CT Brain 10/23/2018 Stable bilateral subdural hemorrhage, left more than right. ?Stable mild mass effect from the left subdural hemorrhage. ?No significant midline shift. ? Mild Chiari I malformation. General: A AND O x 3. Appears stated age, overweight, in no apparent distress.Hand Dominance: right handed. Psychiatric: Mood and affect: Appropriate. Skin: Color, texture, turgor normal. No rashes or lesions Musculoskeletal: Muscle strength: UE BICEPS TRICEPS DELTS Business Services Specialist Sales R 5/5 5/5 5/5 5/5 L 5/5 5/5 5/5 5/5 LE Hip Flex Knee Flex Knee Extend Plantarflex Dorsiflex EHL R 5/5 5/5 5/5 5/5 5/5 5/5 L 5/5 5/5 5/5 5/5 5/5 5/5 Sensory: Normal sensory exam Gait: Normal CRANIAL NERVES: Pupils: OD Right: 3 mm Reactive OS Left: 3 mm Reactive II Visual pearson: are full to confrontation III, IV, EOM full V Facial sensation normal VII Normal strength VIII Normal bilaterally IX, X Normal, midline palatal rise XI Symmetric shrug XII Tongue midline, mobile Drift: none Speech: clear, fluent Hemineglect: none SIGNATURE: Evita Celis APRN.CNP PATIENT NAME: Elli Guerrero DATE: 10/24/2018 TIME: 1:53 PM PAGER: [phone] PROGRESS Observed: 10/24/2018 Status: COMPLETED Source: [facility] 1:47 PM CLINIC OTHER CAMPUS REPOSITORY HNO ID: [id number] Author: Chuck Delgado MD Service: Hospital Medicine Author Type: Physician Type: Progress Notes Filed: 10/24/2018 2:03 PM Note Text: DEPARTMENT OF HOSPITAL MEDICINE PROGRESS NOTE Interval History/Chief Complaints: follow up on SDH Subjective Patient was seen, had slight vaginal bleeding, she does have history of hysterctomy, discussed with her the UA and she does have UTI Denies fever, chills, n, v, cp, sob, palpitation, dysuria, or abdominal pain Objective PHYSICAL EXAM: BP 119/71 Pulse 55 Temp (Src) 97.5 (Oral) Resp 18 Ht 5' 4 (1.63m) Wt 251 lb 5.2 oz (114.0kg) SpO2 97% BMI 43.12 kg/(m2). General appearance: NAD, conversant Lungs: Clear to auscultation CV: Ns1s2 Abdomen: Soft, non tender Extremities: No peripheral edema or cyanosis MEDICATIONS: Reviewed Current hospital medications: cefTRIAXone iv piggyback 1 g in dextrose (iso-osmotic) 50 mL (ROCEPHIN) 1 g INTRAVENOUS q 24 H nystatin 5 mL oral liquid (MYCOSTATIN) 5 mL ORAL QID senna-docusate 8.6-50 mg 1 tablet (SENNA-S) 1 tablet ORAL BID metoprolol tartrate (short acting) 12.5 mg tab(s) (LOPRESSOR) 12.5 mg ORAL/FEEDING TUBE q 12 H hydrALAZINE 5 mg injection (APRESOLINE) 5 mg INTRAVENOUS q 4 H PRN miconazole 2 % 1 application topical powder (LOTRIMIN AF, DESENEX) 1 application TOPICAL BID nortriptyline 10 mg cap(s) (PAMELOR) 10 mg ORAL/FEEDING TUBE AT BEDTIME insulin lispro pen (rapid acting) (HumaLOG KWIKPEN) SUBCUTANEOUS w MEALS AND HS Hydrochlorothiazide 12.5 mg 12.5 mg ORAL/FEEDING TUBE DAILY hydroxychloroquine 200 mg (PLAQUENIL) 200 mg ORAL/FEEDING TUBE BID sertraline (ZOLOFT) tab(s) 150 mg 150 mg ORAL/FEEDING TUBE DAILY acetaminophen 650 mg tab(s) (TYLENOL) 650 mg ORAL/FEEDING TUBE q 4 H PRN metoclopramide HCl 10 mg tab(s) (REGLAN) 10 mg ORAL q 6 H PRN dextrose 40 % 15 g 15 g ORAL/FEEDING TUBE PRN glucagon 1 mg injection (GLUCAGEN) 1 mg INTRAMUSCULAR PRN dextrose 50% in water 25 mL syringe 12.5 g INTRAVENOUS PRN lithium carbonate ER 900 mg tab(s) 900 mg ORAL AT BEDTIME lithium carbonate ER 450 mg tab(s) 450 mg ORAL DAILY pantoprazole DR 40 mg tab(s) (PROTONIX) 40 mg ORAL DAILY (6 AM) NaCl 0.9% 3-5 mL 3-5 mL INTRAVENOUS q 12 H NaCl 0.9% iv infusion 100 mL/hr INTRAVENOUS CONTINUOUS ondansetron 4 mg tab(s) (ZOFRAN) 4 mg ORAL q 6 H PRN ondansetron (PF) 4 mg injection (ZOFRAN) 4 mg INTRAVENOUS q 6 H PRN magnesium hydroxide 400 mg/5 mL 30 mL (MOM) 30 mL ORAL DAILY PRN bisacodyl 10 mg suppository (DULCOLAX) 10 mg RECTAL DAILY PRN oxyCODONE IR 5-10 mg tab(s) (ROXICODONE) 5-10 mg ORAL q 3 H PRN fentaNYL 50 mcg/mL 25-50 mcg injection (SUBLIMAZE) 25-50 mcg INTRAVENOUS q 1 H PRN DATA: Diagnostic tests reviewed for today's visit: CBC: Recent Labs 10/24/18 0432 WBC 8.35 RBC 4.86 HB 14.2 HCT 43.2 PLT 123* MCV 88.9 MCH 29.2 MPV 9.8 RDW 13.5 Coags: No results for input(s): INR, APTT in the last 24 hours. Invalid input(s): PT BMP: Recent Labs 10/24/18 0432 NA 137 K 3.5 CHLOR 102 CO2 27 BUN 11 CREAT 0.46* GLUC 136* CMP: Recent Labs 10/24/18 0432 NA 137 K 3.5 CHLOR 102 CO2 27 BUN 11 CREAT 0.46* GLUC 136* TPROT 8.6* CA 10.4* MG 2.4 TBILI 1.0 ALKPHOS 128* ALT 25 AST 27 ANION 12 Recent Labs 10/24/18 0432 TPROT 8.6* ALB 4.0 ALT 25 AST 27 ALKPHOS 128* TBILI 1.0 MG/PHOS: Recent Labs 10/24/18 0432 MG 2.4 P 3.6 Renal Panel: Recent Labs 10/24/182 CREAT 0.46* BUN 11 GLUC 136* CA 10.4* P 3.6 CHLOR 102 K 3.5 CO2 27 NA 137 Heme: No results for input(s): RETICP, ABSRETIC, LD, BRENNAN, FE, TIBC, TRANSFERSAT in the last 24 hours. Albumin/Creat Ratio (mg/g) Date Value 04/01/2018 15 Most recent labs/microbiology/imaging were reviewed independently and discussed with the patient Assessment/Plan Active Problems: # UTI, UA is positive, will start rocephin, pending U cx # Vaginal bleeding??, has history of hysterectomy, will consult Lab Associate if negative, might be bladder related # Subdural hematoma (HCC) POA: Yes Assessment AND Plan: Patient with a recent history of a fall with TBI and subdural hematoma ?Repeat CT with stable hematoma and mass effect ?Neurosurgery recommend no intervention ? # Type 2 diabetes mellitus (HCC) POA: Yes Assessment AND Plan: stable, c/w current tx # Essential (primary) hypertension POA: Yes Assessment AND Plan: stable, continue current tx # Bipolar disorder, unspecified (HCC) POA: Yes Assessment AND Plan: on lithium # Paroxysmal atrial fibrillation (HCC) POA: Yes Assessment AND Plan: in NSR, continue BB SIGNATURE: Chuck Delgado MD PATIENT NAME: Elli Guerrero TIME: 12:45 PM PAGER/CONTACT #: THERAPY NT Observed: 10/24/2018 Status: COMPLETED Source: [facility] 10:12 AM CLINIC OTHER CAMPUS REPOSITORY HNO ID: [id number] Author: Patsy (Eye Clinic Manager) KIRK Walker/RISK DEVELOPER Service: Speech/Swallow Author Type: Speech Language Pathologist Type: Therapy (PT/OT/Speech/Resp) Filed: 10/24/2018 10:34 AM Note Text: Speech Therapy Treatment SERVICE DATE: 10/24/2018 SERVICE TIME: 0935 to 1007 ROOM: [id number] Nursing Recommendations: Reinforce use of swallowing strategies;Reinforce use of communication strategies Diet Recommendations: Dysphagia Level 2 (Dysphagia Mechanically Altered) Thin liquids Swallowing Precautions Recommendations: Alert (patient should be fully alert for P.O. intake);Sit upright 90 degrees for all PO;Small Bite/Sip Results and Recommendations Discussed With: Patient Recommended Discharge Disposition: Subacute/SNF Justification For Post Acute Needs: May not tolerate higher intensity programing;Willing to participate IMPRESSION: Patient demonstrates oral pharyngeal dysphagia which is negatively impacting his/her ability to effectively maintain adequate nutrition and hydration and/or airway safety. Inconsistent alertness or focus to task puts patient at risk for aspiration. The current soft textured diet is the safest for patient at this point. Patient demonstrates dysarthria and cognitive linguistic deficits which is negatively impacting the patient's ability to effectively communicate basic ADL medical and social wants/needs with familiar and unfamiliar communication partners. Rehabilitation Precautions: Modified Diet;Cognitive Linguistics Deficits Precaution/Activity Restriction Comments: varied alertness Isolation Type: None ASSESSMENT: Patient up in chair with eyes closed Minimal response to tactile and verbal stimulation Poor pragmatics - poor focus/attetnion to task; talking to me with eyes closed - ? If decreased focus to task is behavioral Oriented to self, time. Re-orientation needed for location and situation Problem solving responses accurate and timely 0/5 trials Speech is slurred and difficult to understand Education given on need to open eyes/make eye contact and to over-articulate in order to be understood Able to clearly pronounce multi syllable words on 5/10 trials with maximum cueing to over-articulate Conversational responses intelligible 25% of the time during times of being inattentive Patient reports she did not eat breakfast Not able to feed self due to drowsiness Assisted patient with feeding No overt signs/symptoms of aspiration with thin liquid (water) from straw Slow chewing with softer solid; maximum cueing needed to stay awake and focused in order to chew/swallow effectively Patient may need supervision at meals if she is in drowsy state when food tray arrives Recommend continue the dysphagia 2 (mechanical soft) textured foods and thin liquids Tolerance Limited By Cooperation;Alertness Goals for Plan of Care: Swallow Goals: Patient will tolerate Dysphagia Level 2 (Dysphagia Mechanically Altered) diet consistency while utilizing compensatory/swallowing strategies given moderate cues in 90% of trials so that the patient will minimize the signs/symptoms of dysphagia. Tolerating the texture but decreased focus/attention to task 10/24/2018 Patient will tolerate Thin Liquids consistency while utilizing compensatory/swallowing strategies given moderate cues in 90% of trials so that the patient will minimize the signs/symptoms of dysphagia. Tolerating 10/24/2018 Patient will demonstrate adequate return of knowledge of all compensatory strategies/instruction to effectively assist the patient in immediate safety with oral intake and swallowing: small bites and sips, slow rate of intake, allow time for chewing, monitor for pocketing - Moderate cueing required for sit up straight and eyes open at meals 10/24/2018 Therapeutic Tasks: Lingual/Pharyngeal/Laryngeal strengthening tasks to improve swallowing function - see above 10/24/2018 Cognitive Goals: Patient will demonstrate orientation to person, place, time, situation to 75% accuracy given minimal cues so that the patient can more actively engage in own personal care and recovery. See above 10/24/2018 Patient will demonstrate use of complex problem solving skills with 75% accuracy given minimal cues so that the patient may participate in personal discharge planning. See above 10/24/2018 Speech Goals: Patient will improve speech intelligibility at the word and sentence level to 75% intelligibility given minimal cues so that the patient can functionally communicate with caregivers. See above 10/24/2018 Patient /Caregiver Goals: Eat/Drink Without Restrictions;Improve Communication Progress Toward Goals: Progressing as expected Rehab Potential: Good PLAN: Treatment Frequency (times per week): 3 Current admission Treatment Interventions: Dysphagia Management Plan of Care Developed with: Patient TREATMENT INTERVENTIONS: Therapy Diagnosis: Dysphagia following cerebral infarction;Cognitive deficits following cerebral infarction;Dysarthria following cerebral infarction Interventions Provided: Dysphagia Therapy (64793);Speech Therapy (43752) $ Dysphagia Therapy (10798) Billed Units: 1 unit Skilled Interventions: Reassessed swallow ability with various liquid and food textures to determine if safe for current food/drink textures versus at risk for aspiration.Educated and advised patient / caregiver on texture and liquid consistency recommendations., Instructed patient / caregiver on recommended compensatory strategies to maximize safety with oral intake while maintaining nutrition, hydration and medication stability. $ Speech Therapy (20512) Billed Units: 1 unit Skilled Interventions: Educated and instructed patient on compensatory strategies for improving speech intelligibility at word level (1-3 syllable)., Provided practice and feedback of over-articulation and slower pace of speech., Educated and attempted practice of socially appropriate conversational skills such as open eyes, make eye contact when talking as well as focus on task. Provided language stimulation tasks to increase concentration, problem solving and focus to task. Total Treatment Time (minutes): 32 FUNCTIONAL G CODE: G Code Functional Limitations: Swallowing (10/23/18 1300) Swallow Current Status (G8996): CI - At least 1 percent but less than 20 percent impaired, limited or restricted (10/23/18 1300) Swallow Goal Status (G8997): CH - 0 percent impaired, limited or restricted (10/23/18 1300) Based on clinical assessment and the score on the Functional Communication Measure (FCM), the G code and corresponding severity modifiers are documented above. SUBJECTIVE: Current Hospital Course: Chart reviewed and no significant medical updates relevant to therapy were noted Reason for Speech Therapy Consult: stroke symptoms Relevant Past Medical History: Subdural hematoma, fall, Traumatic brain injury, bipolar, major depressive disorder Patient Report: I am so tired Home Environment Prior Functional Level: Required Assistance Assistance Required With: Finances;Laundry;Meals;Medication Management;Safety;Self Care;Shopping;Transportation Assistance Available: Unable to determine at this time Prior Swallowing Function/Diet Textures: Regular Consistency;Thin liquids Please see discipline specific clinical documentation flowsheet for complete details for this therapy evaluation/treatment. SIGNATURE: Patsy Walker CCC-RISK DEVELOPER PATIENT NAME: Elli Guerrero DATE: October 24, 2018 TIME: 10:13 AM URINALYSIS, REFLEX Collected: 10/24/2018 Status: F Source: [facility] 7:55 AM HEALTH SYSTEM REPOSITORY TYPE CODE TESTS RESULT OUT OF RANGE REFERENCE UNITS LAB COLOR(LOIN C) Urine Color YELLOW LAB APPUR(LOIN C) Urine Appearance CLOUDY LAB GLUUR(LOIN Negative mg/dL C) Glucose Urine NEGATIVE LAB KETON(LOIN Negative mg/dL C) Abnormal Ketone Urine 15 LAB HGBUR(LOIN Negative C) Abnormal Hemoglobin,Urin SMALL e LAB PROTU(LOIN Negative mg/dL C) Abnormal Protein Urine TRACE LAB NITR(LOINC Negative ) Nitrite reflex NEGATIVE LAB BILIU(LOIN Negative C) Abnormal Bilirubin Urine see below Result Comment: Detected (Unable to confirm). LAB SPG(LOINC) 1.005-1.030 Specific 1.016 [place], Ur LAB PHUR(LOINC) 5.0-8.0 pH,Urine 6.0 LAB UROBI(LOINC) 0.0-1.0 EU/dL Urobilinogen,Ur 1.0 LAB LEUKR(LOINC) Negative Abnormal Leukocyte SMALL esterase LAB RBCU1(LOINC) 0.0-5.0 /hpf High RBC,Urine 8.8 LAB WBCR(LOINC) 0.00-5.00 /hpf High WBC, reflex 12.30 LAB EPIT1(LOINC) 0.0-5.0 /hpf High Ep Cells Urine 10.3 LAB BACT1(LOINC) None Abnormal Bacteria Urine 4+ LAB HYCA1(LOINC) 0.0-1.0 /lpf High Hyaline Cast 1.9 LAB REFLX(LOINC) Reflex Comment see below Result Comment: A urine culture has been ordered based on established laboratory criteria. Performed By: #### URIN #### [place] [address] HEMOGRAM/DIFF Collected: 10/24/2018 Status: F Source: [facility] 4:32 AM HEALTH SYSTEM REPOSITORY TYPE CODE TESTS RESULT OUT OF REFERENCE UNITS RANGE LAB WBC(LOINC) 3.98-10.04 thou/cmm WBC 8.35 LAB RBC(LOINC) 3.93-5.22 mil/cmm RBC 4.86 LAB HGB(LOINC) 11.2-15.7 g/dL Hgb 14.2 LAB HCT(LOINC) 34.1-44.9 % Hct 43.2 LAB MCV(LOINC) 79.4-94.8 fl MCV 88.9 LAB MCH(LOINC) 25.6-32.2 pg MCH 29.2 LAB MCHC(LOINC 31.6-34.8 % ) MCHC 32.9 LAB RDW(LOINC) 11.7-14.4 % RDW 13.5 LAB RDWSD(LOIN 36.4-46.3 fl C) RDW SD 44.2 LAB PLT(LOINC) 182-369 thou/cmm Low Platelet 123 LAB MPV(LOINC) 9.4-12.3 fl MPV 9.8 LAB SEG(LOINC) % Seg Neutrophil 69.2 LAB IGRE(LOINC % ) Immature Grans 0.60 LAB LYMPH(LOIN % C) Lymphocyte 23.1 LAB MNO(LOINC) % Monocyte 5.0 LAB EOSIN(LOIN % C) Eosinophil 1.9 LAB BASO(LOINC % ) Basophil 0.2 LAB SEGN(LOINC 1.56-6.13 thou/cmm ) Abs. Neut (ANC) 5.78 LAB IGAB(LOINC 0.00-0.05 thou/cmm ) Abs Immature Grans 0.05 LAB LYMN(LOINC 1.18-3.74 thou/cmm ) Abs. Lymph 1.93 LAB MONON(LOIN 0.27-0.70 thou/cmm C) Abs. Walsh 0.42 LAB EOSN(LOINC 0.00-0.31 thou/cmm ) Abs. Eosin 0.16 LAB BASON(LOIN 0.01-0.08 thou/cmm C) Abs. Baso 0.02 Performed By: #### [id number] #### [place] [address] MAGNESIUM BLOOD Collected: 10/24/2018 Status: F Source: [facility] 4:32 AM HEALTH SYSTEM REPOSITORY TYPE CODE TESTS RESULT OUT OF REFERENCE UNITS RANGE LAB MAG(LOINC) 1.6-2.6 mg/dL Magnesium Blood 2.4 Performed By: #### MAG #### [place] [address] PHOSPHORUS BLOOD Collected: 10/24/2018 Status: F Source: [facility] 4:32 AM [facility] REPOSITORY TYPE CODE TESTS RESULT OUT OF REFERENCE UNITS RANGE LAB PHOS(LOINC 2.5-4.9 mg/dL ) Phosphorus Blood 3.6 Performed By: #### PHOS #### [place] [address] COMPREHENSIVE PANEL Collected: 10/24/2018 Status: F Source: [facility] 4:32 AM HEALTH SYSTEM REPOSITORY TYPE CODE TESTS RESULT OUT OF REFERENCE UNITS RANGE LAB NA(LOINC) 136-145 mEq/L Sodium Blood 137 LAB K(LOINC) 3.5-5.1 mEq/L Potassium Blood 3.5 LAB CL(LOINC) 98-107 mEq/L Chloride Blood 102 LAB CO2(LOINC) 21-32 mEq/L CO2 Blood 27 LAB GLU(LOINC) 70-99 mg/dL Glucose High Blood 136 LAB BUN(LOINC) 7-18 mg/dL BUN Blood 11 LAB CREA(LOINC 0.51-0.95 mg/dL ) Low Creatinine Blood 0.46 LAB CA(LOINC) 8.5-10.1 mg/dL Calcium High Blood 10.4 LAB ALB(LOINC) 3.4-5.0 g/dL Albumin Blood 4.0 LAB TP(LOINC) 6.4-8.2 g/dL Total High Protein 8.6 LAB AST(LOINC) 9-37 U/L AST-SGOT Blood 27 LAB ALT(LOINC) 12-78 U/L ALT-SGPT Blood 25 LAB ALKP(LOINC 46-116 U/L ) Alk High Phosphatase 128 LAB BILIT(LOIN 0.2-1.0 mg/dL C) Total Bilirubin 1.0 LAB ANGAP(LOIN 8-16 C) Anion Gap 12 Performed By: #### P14 #### [place] [address] THERAPY NT Observed: 10/23/2018 Status: COMPLETED Source: [facility] 1:55 PM CLINIC OTHER CAMPUS REPOSITORY HNO ID: [id number] Author: Patsy (Eye Clinic Manager) KIRK Walker/RISK DEVELOPER Service: Speech/Swallow Author Type: Speech Language Pathologist Type: Therapy (PT/OT/Speech/Resp) Filed: 10/23/2018 2:14 PM Note Text: Speech Therapy Speech Evaluation, Treatment SERVICE DATE: 10/23/2018 SERVICE TIME: 1300 to 1340 ROOM: [place] [address] Nursing Recommendations: Reinforce use of swallowing strategies;Reinforce use of communication strategies Diet Recommendations: Dysphagia Level 2 (Dysphagia Mechanically Altered) Thin liquids Swallowing Precautions Recommendations: Alert (patient should be fully alert for P.O. intake);Sit upright 90 degrees for all PO;Small Bite/Sip Results and Recommendations Discussed With: Patient Recommended Discharge Disposition: Subacute/SNF Justification For Post Acute Needs: May not tolerate higher intensity programing;Willing to participate IMPRESSION: Patient demonstrates oral pharyngeal dysphagia which is negatively impacting his/her ability to effectively maintain adequate nutrition and hydration and/or airway safety. Safer for softer textured foods as mentioned above due inconsistent focus to task. Patient demonstrates Dysarthria and cognitive linguistic deficits which is negatively impacting the patient's ability to effectively communicate basic ADL medical and social wants/needs with familiar and unfamiliar communication partners. Rehabilitation Precautions: Modified Diet;Cognitive Linguistics Deficits Precaution/Activity Restriction Comments: Fall risk Isolation Type: None ASSESSMENT: Patient laying diagonal with legs hanging out of the bed Repositioned patient who did not demonstrate safety awareness to the risk of falling - Assessed speech, language, and cognitive skills: - Speech: Intelligibility: mildly slurred speech with blended word boundaries Dysarthria/Apraxia: mild dysarthria - Language: Receptive: deficit with higher level/detailed directions or conversation; slow to respond Expressive: fluent but slow to respond and deficits with higher level verbal explanations - Cognition: Problem solving: moderately impaired Memory: moderately impaired short term memory Reasoning: moderately impaired Attention: mildly distractable - Reading/writing: poor ability to attend produces errors at sentence and paragraph level - Insight: poor - Pragmatics: poor; keeps eyes closed during conversation, often off topic - Patient presents with deficits in the following areas: cognitive linguistic deficits, dysarthria Swallow reassessed Lunch tray present and untouched; patient reports no appetite She did demonstrate the ability to swallow thin liquids from straw without obvious signs/symptoms of aspiration Patient declined a solid trial - I just don't want it! Educated patient on need to focus and keep eyes open at meals for general safety - moderate cueing needed for this even with the liquid trials Recommend continue mechanical soft foods and thin liquids Tolerated Full Session Cooperation;Alertness Goals for Plan of Care: Swallow Goals: Patient will tolerate Dysphagia Level 2 (Dysphagia Mechanically Altered) diet consistency while utilizing compensatory/swallowing strategies given moderate cues in 90% of trials so that the patient will minimize the signs/symptoms of dysphagia. Tolerating the texture but decreased focus/attention to task 10/23/2018 Patient will tolerate Thin Liquids consistency while utilizing compensatory/swallowing strategies given moderate cues in 90% of trials so that the patient will minimize the signs/symptoms of dysphagia. Tolerating 10/23/2018 Patient will demonstrate adequate return of knowledge of all compensatory strategies/instruction to effectively assist the patient in immediate safety with oral intake and swallowing: small bites and sips, slow rate of intake, allow time for chewing, monitor for pocketing - Moderate cueing required for sit up straight and eyes open at meals 10/23/2018 Therapeutic Tasks: Lingual/Pharyngeal/Laryngeal strengthening tasks to improve swallowing function - see above 10/23/2018 Cognitive Goals: Patient will demonstrate orientation to person, place, time, situation to 75% accuracy given minimal cues so that the patient can more actively engage in own personal care and recovery. Patient will demonstrate use of complex problem solving skills with 75% accuracy given minimal cues so that the patient may participate in personal discharge planning. Speech Goals: Patient will improve speech intelligibility at the word and sentence level to 75% intelligibility given minimal cues so that the patient can functionally communicate with caregivers. Patient /Caregiver Goals: Eat/Drink Without Restrictions;Improve Communication Progress Toward Goals: Progressing as expected Rehab Potential: Good PLAN: Treatment Frequency (times per week): 3 Current admission Treatment Interventions: Dysphagia Management Plan of Care Developed with: Patient TREATMENT INTERVENTIONS: Therapy Diagnosis: Dysphagia following cerebral infarction;Cognitive deficits following cerebral infarction;Dysarthria following cerebral infarction Interventions Provided: Speech Language Eval (69987);Dysphagia Therapy (94136) $ Speech Language Eval (32406) Billed Units: 1 unit $ Dysphagia Therapy (91280) Billed Units: 1 unit Skilled Interventions: Reassessed swallow ability with various liquid and food textures to determine if safe for current food/drink textures versus at risk for aspiration. Educated and advised patient / caregiver on texture and liquid consistency recommendations. Total Treatment Time (minutes): 40 FUNCTIONAL G CODE: G Code Functional Limitations: Swallowing (10/23/18 1300) Swallow Current Status (G8996): CI - At least 1 percent but less than 20 percent impaired, limited or restricted (10/23/18 1300) Swallow Goal Status (G8997): CH - 0 percent impaired, limited or restricted (10/23/18 1300) Based on clinical assessment and the score on the Functional Communication Measure (FCM), the G code and corresponding severity modifiers are documented above. SUBJECTIVE: Current Hospital Course: Chart reviewed and no significant medical updates relevant to therapy were noted Reason for Speech Therapy Consult: stroke symptoms Relevant Past Medical History: SDH, fall, TBI, DM2 Patient Report: It's hard for me to keep my eyes open. I have no appetite. Home Environment Prior Functional Level: Required Assistance Assistance Required With: Finances;Laundry;Meals;Medication Management;Safety;Self Care;Shopping;Transportation Assistance Available: Unable to determine at this time Prior Swallowing Function/Diet Textures: Regular Consistency;Thin liquids Please see discipline specific clinical documentation flowsheet for complete details for this therapy evaluation/treatment. SIGNATURE: Patsy Walker CCC-RISK DEVELOPER PATIENT NAME: Elli Guerrero DATE: October 23, 2018 TIME: 1:55 PM PROGRESS Observed: 10/23/2018 Status: COMPLETED Source: [facility] 12:45 PM CLINIC OTHER CAMPUS REPOSITORY HNO ID: [id number] Author: Chuck Delgado MD Service: Hospital Medicine Author Type: Physician Type: Progress Notes Filed: 10/23/2018 1:34 PM Note Text: DEPARTMENT OF HOSPITAL MEDICINE PROGRESS NOTE Interval History/Chief Complaints: follow up on SDH Subjective Patient was seen, co mild headache Denies fever, chills, n, v, cp, sob, palpitation or abdominal pain Objective PHYSICAL EXAM: BP 119/62 Pulse 59 Temp (Src) 98.4 (Oral) Resp 18 Ht 5' 4 (1.63m) Wt 251 lb 5.2 oz (114.0kg) SpO2 97% BMI 43.12 kg/(m2). General appearance: NAD, conversant Lungs: Clear to auscultation CV: Ns1s2 Abdomen: Soft, non tender Extremities: No peripheral edema or cyanosis MEDICATIONS: Reviewed Current hospital medications: senna-docusate 8.6-50 mg 1 tablet (SENNA-S) 1 tablet ORAL BID metoprolol tartrate (short acting) 12.5 mg tab(s) (LOPRESSOR) 12.5 mg ORAL/FEEDING TUBE q 12 H hydrALAZINE 5 mg injection (APRESOLINE) 5 mg INTRAVENOUS q 4 H PRN miconazole 2 % 1 application topical powder (LOTRIMIN AF, DESENEX) 1 application TOPICAL BID nortriptyline 10 mg cap(s) (PAMELOR) 10 mg ORAL/FEEDING TUBE AT BEDTIME insulin lispro pen (rapid acting) (HumaLOG KWIKPEN) SUBCUTANEOUS w MEALS AND HS Hydrochlorothiazide 12.5 mg 12.5 mg ORAL/FEEDING TUBE DAILY hydroxychloroquine 200 mg (PLAQUENIL) 200 mg ORAL/FEEDING TUBE BID sertraline (ZOLOFT) tab(s) 150 mg 150 mg ORAL/FEEDING TUBE DAILY acetaminophen 650 mg tab(s) (TYLENOL) 650 mg ORAL/FEEDING TUBE q 4 H PRN metoclopramide HCl 10 mg tab(s) (REGLAN) 10 mg ORAL q 6 H PRN dextrose 40 % 15 g 15 g ORAL/FEEDING TUBE PRN glucagon 1 mg injection (GLUCAGEN) 1 mg INTRAMUSCULAR PRN dextrose 50% in water 25 mL syringe 12.5 g INTRAVENOUS PRN lithium carbonate ER 900 mg tab(s) 900 mg ORAL AT BEDTIME lithium carbonate ER 450 mg tab(s) 450 mg ORAL DAILY pantoprazole DR 40 mg tab(s) (PROTONIX) 40 mg ORAL DAILY (6 AM) NaCl 0.9% 3-5 mL 3-5 mL INTRAVENOUS q 12 H NaCl 0.9% iv infusion 100 mL/hr INTRAVENOUS CONTINUOUS ondansetron 4 mg tab(s) (ZOFRAN) 4 mg ORAL q 6 H PRN ondansetron (PF) 4 mg injection (ZOFRAN) 4 mg INTRAVENOUS q 6 H PRN magnesium hydroxide 400 mg/5 mL 30 mL (MOM) 30 mL ORAL DAILY PRN bisacodyl 10 mg suppository (DULCOLAX) 10 mg RECTAL DAILY PRN oxyCODONE IR 5-10 mg tab(s) (ROXICODONE) 5-10 mg ORAL q 3 H PRN fentaNYL 50 mcg/mL 25-50 mcg injection (SUBLIMAZE) 25-50 mcg INTRAVENOUS q 1 H PRN DATA: Diagnostic tests reviewed for today's visit: CBC: Recent Labs 10/23/18357 WBC 7.08 RBC 4.02 HB 11.7 HCT 35.9 PLT 116* MCV 89.3 MCH 29.1 MPV 10.1 RDW 13.7 Coags: No results for input(s): INR, APTT in the last 24 hours. Invalid input(s): PT BMP: Recent Labs 10/23/18357 NA 137 K 3.6 CHLOR 107 CO2 23 BUN 9 CREAT 0.54 GLUC 123* CMP: Recent Labs 10/23/18357 NA 137 K 3.6 CHLOR 107 CO2 23 BUN 9 CREAT 0.54 GLUC 123* TPROT 7.7 CA 9.5 MG 2.2 TBILI 0.8 ALKPHOS 102 ALT 22 AST 32 ANION 11 Recent Labs 10/23/18 0358 TPROT 7.7 ALB 3.5 ALT 22 AST 32 ALKPHOS 102 TBILI 0.8 MG/PHOS: Recent Labs 10/23/18 0358 MG 2.2 P 3.1 Renal Panel: Recent Labs 10/23/18 0358 CREAT 0.54 BUN 9 GLUC 123* CA 9.5 P 3.1 CHLOR 107 K 3.6 CO2 23 NA 137 Heme: No results for input(s): RETICP, ABSRETIC, LD, BRENNAN, FE, TIBC, TRANSFERSAT in the last 24 hours. Albumin/Creat Ratio (mg/g) Date Value 04/01/2018 15 Most recent labs/microbiology/imaging were reviewed independently and discussed with the patient Assessment/Plan Active Problems: Subdural hematoma (HCC) POA: Yes Assessment AND Plan: Patient with a recent history of a fall with TBI and subdural hematoma ?Repeat CT with stable hematoma and mass effect ?Neurosurgery recommend no intervention ? Type 2 diabetes mellitus (HCC) POA: Yes Assessment AND Plan: stable, c/w current tx Essential (primary) hypertension POA: Yes Assessment AND Plan: stable, continue current tx Bipolar disorder, unspecified (HCC) POA: Yes Assessment AND Plan: on lithium Paroxysmal atrial fibrillation (HCC) POA: Yes Assessment AND Plan: in NSR, continue BB PT/OT for discharge planning SIGNATURE: Chuck Delgado MD PATIENT NAME: Elli Guerrero TIME: 12:45 PM PAGER/CONTACT #: CT HEAD W/O CONTRAST Observed: 10/23/2018 Status: F Source: [facility] 8:27 AM HEALTH SYSTEM REPOSITORY Performed at [facility] APPROVED BY: Beth Rhodes MD EXAMINATION: CT HEAD WITHOUT CONTRAST CLINICAL HISTORY: Subdural hemorrhage. TECHNIQUE: Serial axial images without IV contrast were obtained from the vertex to the foramen magnum. MQ: [id number] CT Dose-Length Product (DLP): 802 mGy*cm CT Dose Reduction Employed: mAs or kVp was manually adjusted based on either the patient size or age. COMPARISON: CT head 10/21/2018. MRI brain 10/21/2018. RESULT: Post-operative change: None. Acute change: No evidence of an acute infarct or other acute parenchymal process. Hemorrhage: Left cerebral convexity subdural hemorrhage again noted, most focal in the lateral left temporal region. Overall size of the subdural hemorrhage appears stable. Minimal amount of subdur al hemorrhage noted in the posterior right occipital region which is stable. No new intracranial hemorrhage. Mass Lesion / Mass Effect: Mild mass effect on the left cerebral hemisphere including the left lateral ventricle due to the left subdural hemorrhage is stable. No significant midline shift. Chronic change: None apparent. Parenchyma: There is no significant volume loss. The brain parenchyma is otherwise within normal limits for age. Ventricles: The ventricles are within normal limits of size and configuration for age. Paranasal sinuses and skull base: The visualized paranasal sinuses are grossly clear. The skull base and imaged soft tissues are unremarkable. Cerebral tonsils are low-lying consistent with mild Chiari I malformation. IMPRESSION: Stable bilateral subdural hemorrhage, left more than right. Stable mild mass effect from the left subdural hemorrhage. No significant midline shift. Mild Chiari I malformation. Observed: 10/23/2018 Status: F Source: [facility] URINE 7:55 AM HEALTH SYSTEM REPOSITORY Test performed at [facility] ORGANISM: Enterobacter cloacae (ID: 1) >100,000 CFU/ml ORGANISM: Klebsiella pneumoniae (ID: 3) 10,000-50,000 CFU/ml ORGANISM: Enterococcus faecalis (ID: 2) 10,000-50,000 CFU/ml Performed By: #### C_URI #### [place] [address] NURSING PROG Observed: 10/23/2018 Status: COMPLETED Source: [facility] 5:21 AM CLINIC OTHER CAMPUS REPOSITORY HNO ID: [id number] Author: Eleuterio HenriquezRn) ANDREI Jensen Service: Nursing Author Type: Registered Nurse Type: Nursing Progress Note Filed: 10/23/2018 5:24 AM Note Text: Nursing Progress Note Patient Name: Elli Guerrero Patient Location: [id number]/[id number]* Daily Note:Sound night time admitting physicians responded to page concerning vaginal bleeding. At this time instructed to notify daytime nursing staff and day time physician for intervention and to monitor for any changes in patient condition. This note was completed by: Eleuterio Jensen RN NURSING PROG Observed: 10/23/2018 Status: COMPLETED Source: [facility] 5:08 AM CLINIC OTHER CAMPUS REPOSITORY O ID: [id number] Author: Eleuterio (Andrei) ANDREI Jensen Service: Nursing Author Type: Registered Nurse Type: Nursing Progress Note Filed: 10/23/2018 5:13 AM Note Text: Nursing Progress Note Patient Name: Elli Guerrero Patient Location: [place] [address]/[place] [address]* Daily Note:During continence check noticed bloody vaginal discharge on incontinence pad. After cleaning patient the external female genitalia appears to be intact with no wounds present. Small amount of blood is continuing to leak out of internal parts of vagina. Patient states she has not had a period in 10 years. [facility] resident Kevin was notified. Instructed to notify [facility] physicians for follow up. Vital signs are consistent with previous readings. Hgb and hematocrit are 12 AND 38. Will continue to monitor patient closely. This note was completed by: Eleuterio Jensen RN HEMOGRAM/DIFF Collected: 10/23/2018 Status: F Source: [facility] 3:58 AM HEALTH SYSTEM REPOSITORY TYPE CODE TESTS RESULT OUT OF REFERENCE UNITS RANGE LAB WBC(LOINC) 3.98-10.04 thou/cmm WBC 7.08 LAB RBC(LOINC) 3.93-5.22 mil/cmm RBC 4.02 LAB HGB(LOINC) 11.2-15.7 g/dL Hgb 11.7 LAB HCT(LOINC) 34.1-44.9 % Hct 35.9 LAB MCV(LOINC) 79.4-94.8 fl MCV 89.3 LAB MCH(LOINC) 25.6-32.2 pg MCH 29.1 LAB MCHC(LOINC 31.6-34.8 % ) MCHC 32.6 LAB RDW(LOINC) 11.7-14.4 % RDW 13.7 LAB RDWSD(LOIN 36.4-46.3 fl C) RDW SD 44.8 LAB PLT(LOINC) 182-369 thou/cmm Low Platelet 116 LAB MPV(LOINC) 9.4-12.3 fl MPV 10.1 LAB SEG(LOINC) % Seg Neutrophil 67.3 LAB IGRE(LOINC % ) Immature Grans 0.40 LAB LYMPH(LOIN % C) Lymphocyte 24.3 LAB MNO(LOINC) % Monocyte 5.9 LAB EOSIN(LOIN % C) Eosinophil 1.8 LAB BASO(LOINC % ) Basophil 0.3 LAB SEGN(LOINC 1.56-6.13 thou/cmm ) Abs. Neut (ANC) 4.76 LAB IGAB(LOINC 0.00-0.05 thou/cmm ) Abs Immature Grans 0.03 LAB LYMN(LOINC 1.18-3.74 thou/cmm ) Abs. Lymph 1.72 LAB MONON(LOIN 0.27-0.70 thou/cmm C) Abs. Walsh 0.42 LAB EOSN(LOINC 0.00-0.31 thou/cmm ) Abs. Eosin 0.13 LAB BASON(LOIN 0.01-0.08 thou/cmm C) Abs. Baso 0.02 Performed By: #### CBCD1 #### [place] [address] MAGNESIUM BLOOD Collected: 10/23/2018 Status: F Source: [facility] 3:58 AM HEALTH SYSTEM REPOSITORY TYPE CODE TESTS RESULT OUT OF REFERENCE UNITS RANGE LAB MAG(LOINC) 1.6-2.6 mg/dL Magnesium Blood 2.2 Performed By: #### MAG #### [place] [address] PHOSPHORUS BLOOD Collected: 10/23/2018 Status: F Source: [facility] 3:58 AM HEALTH SYSTEM REPOSITORY TYPE CODE TESTS RESULT OUT OF REFERENCE UNITS RANGE LAB PHOS(LOINC 2.5-4.9 mg/dL ) Phosphorus Blood 3.1 Performed By: #### PHOS #### [facility] [address] [place] [address] COMPREHENSIVE PANEL Collected: 10/23/2018 Status: F Source: [facility] 3:58 AM HEALTH SYSTEM REPOSITORY TYPE CODE TESTS RESULT OUT OF REFERENCE UNITS RANGE LAB NA(LOINC) 136-145 mEq/L Sodium Blood 137 LAB K(LOINC) 3.5-5.1 mEq/L Potassium Blood 3.6 LAB CL(LOINC) 98-107 mEq/L Chloride Blood 107 LAB CO2(LOINC) 21-32 mEq/L CO2 Blood 23 LAB GLU(LOINC) 70-99 mg/dL Glucose High Blood 123 LAB BUN(LOINC) 7-18 mg/dL BUN Blood 9 LAB CREA(LOINC 0.51-0.95 mg/dL ) Creatinine Blood 0.54 LAB CA(LOINC) 8.5-10.1 mg/dL Calcium Blood 9.5 LAB ALB(LOINC) 3.4-5.0 g/dL Albumin Blood 3.5 LAB TP(LOINC) 6.4-8.2 g/dL Total Protein 7.7 LAB AST(LOINC) 9-37 U/L AST-SGOT Blood 32 LAB ALT(LOINC) 12-78 U/L ALT-SGPT Blood 22 LAB ALKP(LOINC 46-116 U/L ) Alk Phosphatase 102 LAB BILIT(LOIN 0.2-1.0 mg/dL C) Total Bilirubin 0.8 LAB ANGAP(LOIN 8-16 C) Anion Gap 11 Performed By: #### P14 #### [facility] [address] [place] [address] NURSING PROG Observed: 10/22/2018 Status: COMPLETED Source: [facility] 9:04 PM CLINIC OTHER CAMPUS REPOSITORY HNO ID: [id number] Author: Jazzy HenriquezRn) ANDREI Garcia Service: Nursing Author Type: Registered Nurse Type: Nursing Progress Note Filed: 10/22/2018 9:07 PM Note Text: Family expressed concerns about patient being discharged home and decision making ability of patient's . Explained that Social work or case management would be in contact about potential discharge spots to SNF or subacute facility and that we could also work on taking out a HCPOA with the permission of the patient. This update given to the nurse that took over patient care on 9100. PHOSPHORUS BLOOD Collected: 10/22/2018 Status: F Source: [facility] 3:04 PM HEALTH SYSTEM REPOSITORY TYPE CODE TESTS RESULT OUT OF REFERENCE UNITS RANGE LAB PHOS(LOINC 2.5-4.9 mg/dL ) Phosphorus Blood 3.1 Performed By: #### PHOS #### [facility] [address] [place], [place] [address] THERAPY NT Observed: 10/22/2018 Status: COMPLETED Source: [facility] 2:38 PM CLINIC OTHER CAMPUS REPOSITORY HNO ID: [id number] Author: Terrie (Otr/Cecilio) Gavino Service: Occupational Therapy Author Type: Occupational Therapist Type: Therapy (PT/OT/Speech/Resp) Filed: 10/22/2018 2:44 PM Note Text: Occupational Therapy Evaluation SERVICE DATE: 10/22/2018 SERVICE TIME: 1400 to 1415 ROOM: [id number] Recommended Discharge Disposition: Subacute/SNF Recommended Discharge Disposition Comments: Patient has had a decline from prior level of independence and would benefit from skilled rehab post acute to return to prior level of function/safe return home. Justification For Post Acute Needs: Anticipate that patient will require daily (5x/wk) skilled therapy in a post-acute facility setting at the time of acute hospital discharge;May not tolerate higher intensity programing;Willing to participate;Medically complex;Living the community premorbidly;Good premorbid functional status;Good family support OT Recommendations to Nursing: ADL?s in chair;OOB for meals;Bedside Commode for Toileting;With assist of 2 people Equipment: Commode-Bedside OT 6 Clicks Score: 12 Precautions/Activity Restrictions: Fall Risk;Lines/Tubes/Drains Precaution/Activity Restriction Comments: Continuous EEG, IV, telemetry, continuous pulse ox/BP, Perez ASSESSMENT: OT Evaluation Moderate Complexity: Occupational Profile - Extended review of patient's medical record completed including patient's physical, cognitive, and psycho-social history (please see current hospital course of evaluation). Occupational Performance - Pt presents with deficits in feeding, grooming, UE bathing/dressing, LE bathing/dressing, functional transfers, functional mobility, decreased safety awareness, decreased insight into deficits Complexity in Clinical Decision Making - The extent of clinical reasoning was moderate, several treatment options present for the patient, need for modification during the evaluation was minimal/moderate, comorbidities affecting occupational performance:BTHA, BIPOLAR, anemia Patient Disposition at Start of Session: Call Guido in Reach (with PT) Patient Disposition at End of Session: OOB in Chair;Call Guido in Reach Tolerated Full Session (with cuing, rests as needed) Occupational Therapy Problem List: Cognitive Deficit;Education Deficit;Safety Deficits;Impaired Self Care;Decreased Activity Tolerance;Decreased Strength;Decreased Range Of Motion;Functional Mobility Impairment Patient /Caregiver Goals: Go Home Goals for Plan of Care: Feeding with: Stand By Assistance Grooming with: Minimal Assistance (standing at sink; SBA seated) Upper Body Bathing with: Minimal Assistance Upper Body Dressing with: Minimal Assistance Lower Body Dressing with: Moderate Assistance Toilet Hygiene with: Minimal Assistance Toilet Transfer with: Minimal Assistance (x1 to BSC or bathroom) Tolerate (minutes of functional activity): 30 Functional Activity with: Minimal Assistance Additional Goal 1: Patient will complete functional mobility for ADL with least restrictive device and minimal assist. Additional Goal 2: Patient will participate in UB exercises x 10 minutes to increase UB strength for ADL/ADL mobility. Demonstrate Competence With Education with: Verbal Cues Only Increased Awareness of Cognitive Impairments as Related to ADL's/IADL's: Demonstrated;Verbalized Rehab Potential: Good PLAN: Treatment Frequency (times per week): 3 (1-3 times per week) Current admission Treatment Interventions: Education;Self Care / Home Management;Energy Conservation Training;Strengthening;Functional Mobility Training;Balance Training;Cognitive Training Plan of Care developed with: Patient TREATMENT INTERVENTIONS: Therapy Diagnosis: Reduced mobility-other;Decreased activities of daily living (ADL);Muscle Weakness (generalized);Unsteadiness on feet;Signs and Symptoms Involving Cognitive Functions and Awareness Interventions Provided: Evaluation $ Evaluation-Moderate (29493) Billed Units: 1 unit Initial patient education to purpose of OT, rehab recommendation and safety with mobility in hospital. Education for increased participation/attempt to assist with ADL also provided. Total Treatment Time (minutes): 15 FUNCTIONAL G CODE: OT 6 Clicks Score: 12 (10/22/18 9856) Self Care Current Status (G8987): CL (10/22/18 1415) Self Care Goal Status (G8988): CK (10/22/18 1415) Based on clinical assessment and the score on the 6 Clicks Functional Assessment Tool, the G code and corresponding severity modifiers are documented above. SUBJECTIVE: Current Hospital Course: Chart reviewed; 58-year-old female with a past medical history significant for paroxysmal atrial fibrillation, hypertension, obesity, bipolar disorder, depression, and anemia and recently discharged from the hospital for a subdural hematoma secondary to a fall with presents as a transfer from [facility] where she presented with recurring headaches, I was just not feeling well, and nausea with no vomiting. Patient states initially was seen at another outside hospital where she was observed in the emergency department and discharged home. Patient however notes that on going home has symptoms continued to worsen resulting in a second visit to the emergency department. According to report from the outside hospital I repeat CT scan revealed a new epidural hematoma resulting the patient being transferred here for further management. Upon unable to the ICU patient endorses headache, and nausea with no vomiting but denied any focal neurologic weakness or vision changes. PAST MEDICAL HISTORY Diagnosis Date - Anemia - Bipolar affect, depressed (HCC) - Diabetes mellitus - Dyslipidemia - Elevated liver enzymes - Esophageal reflux - Fatty liver - GERD (gastroesophageal reflux disease) - Hypertension - Leukocytosis, unspecified - Obesity - Obstructive sleep apnea (adult) (pediatric) - PAF (paroxysmal atrial fibrillation) ([facility]) - Personal history of colonic polyps - Smoking - Stroke ([facility]) - Urge incontinence 02/01/2017 Reason for Occupational Therapy Consult: Decreased ability to complete self care Relevant Past Medical History: BTHA, bipolar, anemia Patient Report: Patient drowsy, but opening eyes for short periods of time and on command. Better with lights off. The lights hurt my eyes. Patient c/o pain in head from continuous EEG leads pulling some with mobility. Improved with support of lines/at rest. Home Environment Patient Lives With: Spouse Assistance Available: oversize load pilot escort;24 Hour (spouse/daughter next door) Entry To Home: Stairs (we can put a rail on if we need to) Number Of Stairs Into Home: 3 Number Of Stairs To Bed/Bath: All one level once in home Tub/Shower Type: tub/shower Laundry: Family can provide IADL Equipment Owned: Wheeled Walker;Cane;Shower Chair Prior Functional Level: Within Functional Limits Prior Functional Level Comments: Patient admitted last week with SDH and required CGAx1 to safely ambulate 60'x2. D/C rec was for outpatient PT for balance impairments. OBJECTIVE: Some confusion. Drowsy. Staff reports patient with decreased attempt to participate/converse on and off throughout day. Oriented to person, place. Mild decrease to time. Responsiveness: Drowsy (cues to keep eyes open; better with lights dimmed/glasses on) Follows Commands: 1-step Commands;Cueing Needed Cueing to Follow Commands: Moderate Attention Deficits: Distractible Executive Function Deficits: Sequencing;Insight to Deficits;Problem Solving;Safety Awareness Sequencing Deficit: Moderate impairment Safety Awareness Deficit: Moderate impairment Insight to Deficits: Moderate impairment Problem Solving Deficit: Moderate impairment Vision Deficits: Wears glasses CURRENT FUNCTIONAL STATUS: Current Activities of Daily Living Assist Level Feeding Moderate Assistance (minimal assist to drink from cup, dropping items) Grooming Moderate Assistance (seated up in chair/max for standing) Bathing Upper Body Maximal Assistance Bathing Lower Body Maximal Assistance Dressing Upper Body Maximal Assistance Dressing Lower Body Maximal Assistance Toileting Maximal Assistance Functional Mobility Assist Level Rolling Moderate Assistance Supine to Sit Moderate Assistance Sit to Supine Scooting Moderate Assistance Sit to Stand Moderate Assistance (x2) Stand to Sit Moderate Assistance (x2) Bed to Chair Moderate Assistance (x2) Stand Pivot (hand held assist) Toilet/Commode Moderate Assistance (x2 simulated BSC) Functional Mobility Moderate Assistance (x2 for 2-3 steps by bed with hand held assist) Range of Motion: ROM Limitation Comments ROM Limitation Comments: grossly WFL BUE; mild decrease end range shoulder flexion Strength: Upper Extremity Comments Right Upper Extremity Strength Comments: 4-/5 to 4+/5 Left Upper Extremity Strength Comments: 4-/5 to 4/5 Balance: Static Sitting;Dynamic Sitting;Static Standing;Dynamic Standing Static Sitting Balance: Contact Guard Assistance Dynamic Sitting Balance: Minimal Assistance Static Standing Balance: Moderate Assistance (x1) Dynamic Standing Balance: Moderate Assistance (x2) Activity Tolerance: Sitting Activity;Standing Activity Sitting Activity: Prepare for ADL transfer Sitting Activity Tolerance (in minutes): 4 Standing Activity: ADL transfer/simulated toileting task Standing Activity Tolerance (in minutes): 1 Please see discipline specific clinical documentation flowsheet for complete details for this therapy evaluation/treatment. SIGNATURE: ELOINA Aguirre/Cecilio PATIENT NAME: Elli Guerrero DATE: October 22, 2018 TIME: 2:38 PM THERAPY NT Observed: 10/22/2018 Status: COMPLETED Source: [facility] 2:27 PM CLINIC OTHER CAMPUS REPOSITORY O ID: [id number] Author: Floresita HenriquezPtEthan Castellon Service: Physical Therapy Author Type: Physical Therapist Type: Therapy (PT/OT/Speech/Resp) Filed: 10/22/2018 2:32 PM Note Text: Physical Therapy Evaluation SERVICE DATE: 10/22/2018 SERVICE TIME: 1350 to 1405 ROOM: [place] [address] Recommended Discharge Disposition: Subacute/SNF Justification For Post Acute Needs: Good premorbid functional status;Living the community premorbidly;Medically complex;Willing to participate;May not tolerate higher intensity programing;Anticipate that patient will require daily (5x/wk) skilled therapy in a post-acute facility setting at the time of acute hospital discharge Recommended Discharge Equipment: To Be Determined (by discharge facility) PT Recommendations to Nursing: Ambulate with device;Transfer to/from chair;OOB for Meals;With assist of 2 people Device: Hand Held Assist PT 6 Clicks Score: 12 Precautions/Activity Restrictions: Fall Risk;Lines/Tubes/Drains Precaution/Activity Restriction Comments: Continuous EEG, IV, telemetry, continuous pulse ox/BP, Perez ASSESSMENT : Patient presents with personal factors, comorbidities and results of the PT examination that require moderate complexity decision making. The patient presents with epidural hematoma after she was recently admitted and discharged from the hospital for a SDH. The patient presents with multiple impairments in cognition, strength, activity tolerance, and balance. The patient requires skilled physical therapy to address multiple PT problems in order for the patient to return to a baseline functional level. The patient will benefit from continued skilled PT at discharge to maximize safety and independence with mobility. Patient Disposition at Start of Session: Supine in Bed;Call Guido in Reach Patient Disposition at End of Session: OOB in Chair;Call Guido in Reach Tolerance Limited By Fatigue Physical Therapy Problem List: Decreased Activity Tolerance;Decreased Strength;Functional Mobility Impairment;Balance Impaired;Safety Deficits;Cognitive Deficit Patient /Caregiver Goals: Go Home Goals for Plan of Care: Rolling with: Verbal Cues Only Transfer supine to/from sit with: Minimal Assistance Transfer sit to/from stand with: Minimal Assistance Ambulate with: Minimal Assistance Distance: 50' intervals without LOB Device: Other: See Comment (least restrictive assistive device) Goal: pt to perform lower extremity strengthening ther-ex 2x15 reps Rehab Potential: Good PLAN: Treatment Frequency (times per week): 5 (2-5) Current admission Treatment Interventions: Education;Joint Mobility;Strengthening;Functional Mobility Training;Balance Training;Neuromuscular Re-education Plan of Care developed with: Patient TREATMENT INTERVENTIONS: Therapy Diagnosis: Reduced mobility-other;Muscle Weakness (generalized);Unsteadiness on feet Interventions Provided: Evaluation $ Evaluation-Moderate (40561) Billed Units: 1 unit Total Treatment Time (minutes): 15 FUNCTIONAL G CODE: PT 6 Clicks Score: 12 (10/22/18 1350) Mobility: Walking and Moving Around Current Status (G8978): CL (10/22/18 1350) Mobility: Walking and Moving Around Goal Status (G8979): CK (10/22/18 1350) Based on clinical assessment and the score on the 6 Clicks Functional Assessment Tool, the G code and corresponding severity modifiers are documented above. SUBJECTIVE: Current Hospital Course: Chart reviewed; 58-year-old female with a past medical history significant for paroxysmal atrial fibrillation, hypertension, obesity, bipolar disorder, depression, and anemia and recently discharged from the hospital for a subdural hematoma secondary to a fall with presents as a transfer from [facility] where she presented with recurring headaches, I was just not feeling well, and nausea with no vomiting. Patient states initially was seen at another outside hospital where she was observed in the emergency department and discharged home. Patient however notes that on going home has symptoms continued to worsen resulting in a second visit to the emergency department. According to report from the outside hospital I repeat CT scan revealed a new epidural hematoma resulting the patient being transferred here for further management. Upon unable to the ICU patient endorses headache, and nausea with no vomiting but denied any focal neurologic weakness or vision changes. Reason for Physical Therapy Consult : PT evaluation Relevant Past Medical History: BTHA, bipolar, anemia Patient Report: Received supine in bed upon arrival. Neurosurgery SEASONING SPRAYER present. Patient very drowsy but agreeable to PT evaluation. Home Environment Patient Lives With: Spouse Assistance Available: oversize load pilot escort;24 Hour (spouse/daughter next door) Entry To Home: Stairs (we can put a rail on if we need to) Number Of Stairs Into Home: 3 Number Of Stairs To Bed/Bath: All one level once in home Tub/Shower Type: tub/shower Laundry: Family can provide IADL Equipment Owned: Wheeled Walker;Cane;Shower Chair Prior Functional Level: Within Functional Limits Prior Functional Level Comments: Patient admitted last week with SDH and required CGAx1 to safely ambulate 60'x2. D/C rec was for outpatient PT for balance impairments. OBJECTIVE: CURRENT FUNCTIONAL STATUS: Current Functional Mobility Assist Level Additional Information Rolling Supine to Sit Moderate Assistance Sit to Supine Scooting Moderate Assistance Sit to Stand Moderate Assistance (x2) Stand to Sit Moderate Assistance (x2) Bed to Chair Toilet/Commode Gait Moderate Assistance (x2) Gait Device: Hand Held Assist Gait Distance (feet): 5'x1 (bed to chair) Stairs Curb Step Car Transfer General Gait Deviations: Arm swing decreased;Lateral sway increased;Difficulty changing direction/turning;Non-functional gait speed Range of Motion: WFL Strength: Lower Extremity Comments Right Lower Extremity Strength Comments: 4-/5 Left Lower Extremity Strength Comments: 4-/5 Balance: Static Sitting;Static Standing;Dynamic Standing Static Sitting Balance: Stand By Assistance Static Standing Balance: Moderate Assistance Dynamic Standing Balance: Moderate Assistance Please see discipline specific clinical documentation flowsheet for complete details for this therapy evaluation/treatment. SIGNATURE: Floresita Castellon PT PATIENT NAME: Elli Guerrero DATE: October 22, 2018 TIME: 2:27 PM PROGRESS Observed: 10/22/2018 Status: COMPLETED Source: [facility] 12:50 PM CLINIC OTHER CAMPUS REPOSITORY HNO ID: [id number] Author: Evita Celis Service: Neurosurgery Author Type: Nurse Practitioner Type: Progress Notes Filed: 10/22/2018 4:08 PM Note Text: Neurosurgery Inpatient Progress Note Attending: Dr. Raul Mike Location: [id number]* Hospital Day: 3 ASSESSMENT/ PLAN: Subdural hemorrhage s/p fall - continue neuro exams - CT brain stable - no surgical intervention - repeat CT prior to d/c INTERVAL HPI (Subjective): is a 58 year old female who was recently hospitalized for subdural hemorrhage secondary to a fall. She was stable and discharged home. She presented back to the ED for recurring RODRIGUEZ and nausea/ vomiting. Reporting RODRIGUEZ, nausea, vomiting Denies any n/t or visual disturbances MEDICATIONS: Current hospital medications: senna-docusate 8.6-50 mg 1 tablet (SENNA-S) 1 tablet ORAL BID metoprolol tartrate (short acting) 12.5 mg tab(s) (LOPRESSOR) 12.5 mg ORAL/FEEDING TUBE q 12 H miconazole 2 % 1 application topical powder (LOTRIMIN AF, DESENEX) 1 application TOPICAL BID nortriptyline 10 mg cap(s) (PAMELOR) 10 mg ORAL/FEEDING TUBE AT BEDTIME insulin lispro pen (rapid acting) (HumaLOG KWIKPEN) SUBCUTANEOUS w MEALS AND HS Hydrochlorothiazide 12.5 mg 12.5 mg ORAL/FEEDING TUBE DAILY hydroxychloroquine 200 mg (PLAQUENIL) 200 mg ORAL/FEEDING TUBE BID sertraline (ZOLOFT) tab(s) 150 mg 150 mg ORAL/FEEDING TUBE DAILY acetaminophen 650 mg tab(s) (TYLENOL) 650 mg ORAL/FEEDING TUBE q 4 H PRN metoclopramide HCl 10 mg tab(s) (REGLAN) 10 mg ORAL q 6 H PRN dextrose 40 % 15 g 15 g ORAL/FEEDING TUBE PRN glucagon 1 mg injection (GLUCAGEN) 1 mg INTRAMUSCULAR PRN dextrose 50% in water 25 mL syringe 12.5 g INTRAVENOUS PRN lithium carbonate ER 900 mg tab(s) 900 mg ORAL AT BEDTIME lithium carbonate ER 450 mg tab(s) 450 mg ORAL DAILY pantoprazole DR 40 mg tab(s) (PROTONIX) 40 mg ORAL DAILY (6 AM) potassium chloride 80-120 mEq oral liquid 80-120 mEq ORAL/FEEDING TUBE PRN potassium chloride iv piggyback 20 mEq/100 mL 20 mEq INTRAVENOUS PRN magnesium sulfate in water 2 g in sterile water 50 ml 2 g INTRAVENOUS PRN sodium glycerophosphate 45 mmol in NaCl 0.9% 250 mL (GLYCOPHOS) 45 mmol INTRAVENOUS PRN calcium gluconate 4 g in NaCl 0.9% 250 mL 4 g INTRAVENOUS PRN NaCl 0.9% 3-5 mL 3-5 mL INTRAVENOUS q 12 H NaCl 0.9% iv infusion 100 mL/hr INTRAVENOUS CONTINUOUS ondansetron 4 mg tab(s) (ZOFRAN) 4 mg ORAL q 6 H PRN ondansetron (PF) 4 mg injection (ZOFRAN) 4 mg INTRAVENOUS q 6 H PRN magnesium hydroxide 400 mg/5 mL 30 mL (MOM) 30 mL ORAL DAILY PRN bisacodyl 10 mg suppository (DULCOLAX) 10 mg RECTAL DAILY PRN hydrALAZINE 5 mg injection (APRESOLINE) 5 mg INTRAVENOUS q 1 H PRN oxyCODONE IR 5-10 mg tab(s) (ROXICODONE) 5-10 mg ORAL q 3 H PRN fentaNYL 50 mcg/mL 25-50 mcg injection (SUBLIMAZE) 25-50 mcg INTRAVENOUS q 1 H PRN OBJECTIVE: LABS: CBC: Recent Labs 10/22/1841910/21/1842910/20/18203310/17/1860210/16/18429 WBC 7.48 8.10 7.70 6.26 5.33 HB 12.4 12.2 12.7 11.8 11.4 HCT 38.3 37.8 39.0 36.0 35.9 PLT 115* 125* 132* 112* 106* MCV 89.7 90.2 89.7 90.5 92.1 COAG: Recent Labs 10/20/182033 APTT 28.0 INR 1.08 BMP: Recent Labs 10/22/1841910/21/1842910/20/18203310/17/1860210/16/18429 GLUC 130* 153* 115* 156* 142* NA 137 137 138 138 137 K 3.5 5.4* 3.6 4.2 4.8 CHLOR 106 108* 106 106 109* CO2 24 23 21 24 23 ANION 11 11 15 12 10 BUN 10 10 9 12 9 CREAT 0.47* 0.47* 0.54 0.54 0.49* CHEM: Recent Labs 10/22/1841910/21/1842910/20/18203310/17/[id number]/16/18429 ALB -- 4.0 3.9 -- -- TPROT -- 8.1 8.6* -- -- CA 9.4 9.3 9.5 9.2 8.8 MG 2.2 2.2 2.1 2.1 2.0 HEPATIC: Recent Labs 10/21/1842910/20/182033 ALKPHOS 114 118* ALT 20 23 AST 30 20 TBILI 0.8 0.8 URINALYSIS: Recent Labs 10/20/185 SPGR 1.027 UGLUC NEGATIVE UBILI NEGATIVE UKET 15* UPROT NEGATIVE UROBIL 1.0 UWBC 1.5 LEUKEST NEGATIVE Estimated Creatinine Clearance: 159.9 mL/min (A) (based on SCr of 0.47 mg/dL (L)). VITAL SIGNS 24 HOUR REVIEW: 10/22/18 0900 10/22/18 1000 10/22/18 1054 10/22/18 1100 BP: 113/70 118/54 109/56 Pulse: (!) 56 (!) 55 (!) 55 Resp: Temp: 36.2 ?C (97.2 ?F) TempSrc: Temporal Artery SpO2: 95% 95% 94% Weight: Height: Intake/Output Summary (Last 24 hours) at 10/22/18 1537 Last data filed at 10/22/18 0800 Gross per 24 hour Intake 1473 ml Output 1560 ml Net -87 ml ALLERGIES: ALLERGIES No Known Allergies DATA REVIEW [facility] records reviewed MRI brain Radiologists impression 1. ?No evidence of acute infarction. 2. ? Redemonstration of left cerebral convexity subdural hemorrhage with extension into the left tentorial leaflet and posterior interhemispheric fissure, most prominent at the level the posterior left temporal lobe. 3. ?Nonspecific diffuse enhancement of the dura bilaterally best seen on postcontrast coronal image 18. 4. ?Negative enhanced and nonenhanced MRA head and neck MRI Cervical spine Radiologists impression 1. ?No MRI evidence of acute or subacute trauma to the cervical spine. 2. ?Mild degenerative foraminal stenosis secondary to uncovertebral spurs, most prominent at C6-7 and lesser degree C5-6 level 3. ?No abnormal intradural or extradural enhancement 4. ?Redemonstration of subdural hemorrhage at the level the posterior fossa. Refer to MRI brain for diagnostic discussion CT brain Radiologists impression No significant change. ?Grossly similar left lateral temporal region extra-axial hematoma estimated to measure approximately 14 mm in maximal thickness and minimal subdural hemorrhage along the interhemispheric falx and left tentorial leaflet. ? No new hemorrhage in the interval. ?Similar local mass effect as detailed. General: A AND O x 3. Appears stated age, overweight, in mild distress.Hand Dominance: right handed. Psychiatric: Mood and affect: flat affect. Musculoskeletal: Muscle strength: UE BICEPS TRICEPS DELTS Business Services Specialist Sales R 4/5 4/5 4/5 4/5 L 4/5 4/5 4/5 4/5 LE Hip Flex Knee Flex Knee Extend Plantarflex Dorsiflex EHL R 4/5 4/5 4/5 4/5 4/5 4/5 L 4/5 4/5 4/5 4/5 4/5 4/5 Sensory: Normal sensory exam Gait: N/A CRANIAL NERVES: Pupils: OD Right: 3 mm Reactive OS Left: 3 mm Reactive II Visual pearson: are full to confrontation III, IV, EOM full V Facial sensation normal VII Normal strength VIII Normal bilaterally IX, X Normal, midline palatal rise XI Symmetric shrug XII Tongue midline, mobile Drift: none Speech: clear, fluent Hemineglect: none SIGNATURE: Evita Celis APRN.CNP PATIENT NAME: Elli Guerrero DATE: 10/22/2018 TIME: 3:37 PM PAGER: [phone] THERAPY NT Observed: 10/22/2018 Status: COMPLETED Source: [facility] 10:30 AM CLINIC OTHER CAMPUS REPOSITORY HNO ID: [id number] Author: Terrie HenriquezOtr/L) Gavino Service: Occupational Therapy Author Type: Occupational Therapist Type: Therapy (PT/OT/Speech/Resp) Filed: 10/22/2018 10:31 AM Note Text: OCCUPATIONAL THERAPY MISSED VISIT SERVICE DATE: 10/22/2018 SERVICE TIME: 916 to 0918 ROOM: [place] [address] Attempted Evaluation. Patient not seen due to Illness/emesis following ST. Patient with very limited participation/responsiveness to Speech, with RN reporting patient intermittently speaks out clearly, spontaneously when family calls, or to yell something she wants to communicate without difficulty. Will follow up as patient status/participation allow. SIGNATURE: ARASELI Aguirre PATIENT NAME: Elli Guerrero DATE: October 22, 2018 TIME: 10:30 AM THERAPY NT Observed: 10/22/2018 Status: COMPLETED Source: [facility] 9:[address] [facility] OTHER CAMPUS REPOSITORY HNO ID: [id number] Author: Yasmin (Eye Clinic Manager) KIRK Guzman/RISK DEVELOPER Service: Speech/Swallow Author Type: Speech Language Pathologist Type: Therapy (PT/OT/Speech/Resp) Filed: 10/22/2018 9:34 AM Note Text: Speech Therapy Clinical Swallow Evaluation SERVICE DATE: 10/22/2018 SERVICE TIME: 0855 to 15 ROOM: [id number] Nursing Recommendations: See swallow guide posted in patients room;Reinforce use of swallowing strategies Diet Recommendations: Dysphagia Level 2 (Dysphagia Mechanically Altered);Thin liquids Swallowing Precautions Recommendations: Alert (patient should be fully alert for P.O. intake);Ensure heightened awareness to completion of the swallow;Extended time between presentations;Feed / Eat at a slow rate;Limit Distractions;Sit upright 90 degrees for all PO;Small Bite/Sip;Supervision/Assistance for meals. Results and Recommendations Discussed With: Patient;Nurse Recommended Discharge Disposition: Subacute/SNF Justification For Post Acute Needs: May not tolerate higher intensity programing IMPRESSION: Patient demonstrates mild oral-pharyngeal dysphagia which is negatively impacting his/her ability to effectively maintain adequate nutrition and hydration and/or airway safety. Rehabilitation Precautions: Modified Diet;Dysphagia Precaution/Activity Restriction Comments: dysphagia 2 and thin liquids ASSESSMENT: Patient with eyes closed Needing max cues to participate Patient did follow oral commands-mild oral weakness overall- needed max cues Patient with slow and weak chewing-tolerated softer foods overall when allowed time for chewing No overt signs of aspiration, clear voice and no coughing Patient did vomit after session-nurse notified Recommend a diet consisting of softer foods and thin liquids at this time Swallow was mildly delayed ST will follow for swallowing management Tolerance Limited By Cooperation;Alertness Goals for Plan of Care: Swallow Goals: Patient will tolerate Dysphagia Level 2 (Dysphagia Mechanically Altered) diet consistency while utilizing compensatory/swallowing strategies given moderate cues in 90% of trials so that the patient will minimize the signs/symptoms of dysphagia. Patient will tolerate Thin Liquids consistency while utilizing compensatory/swallowing strategies given moderate cues in 90% of trials so that the patient will minimize the signs/symptoms of dysphagia. Patient will demonstrate adequate return of knowledge of all compensatory strategies/instruction to effectively assist the patient in immediate safety with oral intake and swallowing: small bites and sips, slow rate of intake, allow time for chewing, monitor for pocketing Therapeutic Tasks: Lingual/Pharyngeal/Laryngeal strengthening tasks to improve swallowing function Patient /Caregiver Goals: Eat/Drink Without Restrictions Rehab Potential: Good PLAN: Treatment Frequency (times per week): 3 Current admission Treatment Interventions: Dysphagia Management Plan of Care Developed with: Patient TREATMENT INTERVENTIONS: Therapy Diagnosis: Dysphagia, oropharyngeal phase Interventions Provided: Clinical Swallow Evaluation (42532) $ Clinical Swallow Evaluation (51701) Billed Units: 1 unit Total Treatment Time (minutes): 20 FUNCTIONAL G CODE: G Code Functional Limitations: Swallowing (10/22/18854) Swallow Current Status (G8996): CI - At least 1 percent but less than 20 percent impaired, limited or restricted (10/22/18854) Swallow Goal Status (G8997): CH - 0 percent impaired, limited or restricted (10/22/18854) Based on clinical assessment and the score on the Functional Communication Measure (FCM), the G code and corresponding severity modifiers are documented above. SUBJECTIVE: patient admitted with complaints of headaches. History of SDH, TBI from a fall Current Hospital Course: Chart reviewed; PAST MEDICAL HISTORY Diagnosis Date - Anemia - Bipolar affect, depressed (HCC) - Diabetes mellitus - Dyslipidemia - Elevated liver enzymes - Esophageal reflux - Fatty liver - GERD (gastroesophageal reflux disease) - Hypertension - Leukocytosis, unspecified - Obesity - Obstructive sleep apnea (adult) (pediatric) - PAF (paroxysmal atrial fibrillation) (HCC) - Personal history of colonic polyps - Smoking - Stroke ([facility]) - Urge incontinence 02/01/2017 Reason for Speech Therapy Consult: to ensure safe swallowing Relevant Past Medical History: SDH, fall, TBI, DM2 Patient Report: no complaints Home Environment Prior Functional Level: Required Assistance Assistance Required With: Finances;Laundry;Meals;Medication Management;Safety;Self Care;Shopping;Transportation Assistance Available: Unable to determine at this time Prior Swallowing Function/Diet Textures: Regular Consistency;Thin liquids Please see discipline specific clinical documentation flowsheet for complete details for this therapy evaluation/treatment. SIGNATURE: Yasmin Guzman CCC-RISK DEVELOPER PATIENT NAME: Elli Guerrero DATE: October 22, 2018 TIME: 9:24 AM PROGRESS Observed: 10/22/2018 Status: COMPLETED Source: [facility] 7:50 AM CLINIC OTHER CAMPUS REPOSITORY HNO ID: [id number] Author: Raul Mike Service: Neurology ICU Author Type: Physician Type: Progress Notes Filed: 10/22/2018 4:30 PM Note Text: NEURO ICU - PROGRESS NOTE SERVICE DATE: 10/22/2018 SERVICE TIME: 7:51 AM Patient with no concerns overnight. Remains bradycardic to the 40s. Objective DETAILED REVIEW VITAL SIGNS (last 24hrs min/max): 10/22/18 0200 10/22/18 0300 10/22/18 0400 10/22/18 0500 BP: 109/50 (!) 100/43 101/50 (!) 111/47 Pulse: (!) 50 (!) 53 (!) 53 (!) 51 Resp: Temp: 36.4 ?C (97.5 ?F) TempSrc: Temporal Artery SpO2: 95% 95% 95% 95% Weight: Height: INTAKE/OUTPUT: Intake/Output Summary (Last 24 hours) at 10/22/18 0750 Last data filed at 10/22/18 0547 Gross per 24 hour Intake 2306 ml Output 2420 ml Net -114 ml CSF: N/A MIVF: KVO PO/TF: PO FREE WATER: N/A BM: Has the patient had a BM in the last 24 hours? Yes PHYSICAL EXAM AND PERTINENT DATA Neuro:?Patient is alert and oriented ?3, able to follow commands, pupils equal round and reactive, able to move all extremities with no cerebellar deficits. CV:?Heart rhythm regular but with bradycardia with no murmurs or gallops?appreciated. ? Pulm:?Lungs clear to auscultation bilaterally with no wheezes or crackles appreciated. GI/:?Abdomen soft nondistended nontender with positive bowel sounds. Skin/Extremities:?Edema- No??Peripheral pulses- Present all extremities??Wounds/Drsgs- No??Breakdown- No?? Current Facility-Administered Medications: senna-docusate 8.6-50 mg 1 tablet (SENNA-S) 1 tablet ORAL BID iv contrast (radiology procedure) INTRAVENOUS DIRECTED PRN iv contrast (radiology procedure) INTRAVENOUS DIRECTED PRN miconazole 2 % 1 application topical powder (LOTRIMIN AF, DESENEX) 1 application TOPICAL BID iv contrast (radiology procedure) INTRAVENOUS DIRECTED PRN nortriptyline 10 mg cap(s) (PAMELOR) 10 mg ORAL/FEEDING TUBE AT BEDTIME insulin lispro pen (rapid acting) (HumaLOG KWIKPEN) SUBCUTANEOUS w MEALS AND HS Hydrochlorothiazide 12.5 mg 12.5 mg ORAL/FEEDING TUBE DAILY hydroxychloroquine 200 mg (PLAQUENIL) 200 mg ORAL/FEEDING TUBE BID levETIRAcetam 1,000 mg tab(s) (KEPPRA) 1,000 mg ORAL/FEEDING TUBE BID sertraline (ZOLOFT) tab(s) 150 mg 150 mg ORAL/FEEDING TUBE DAILY acetaminophen 650 mg tab(s) (TYLENOL) 650 mg ORAL/FEEDING TUBE q 4 H PRN metoclopramide HCl 10 mg tab(s) (REGLAN) 10 mg ORAL q 6 H PRN dextrose 40 % 15 g 15 g ORAL/FEEDING TUBE PRN Or glucagon 1 mg injection (GLUCAGEN) 1 mg INTRAMUSCULAR PRN Or dextrose 50% in water 25 mL syringe 12.5 g INTRAVENOUS PRN lithium carbonate ER 900 mg tab(s) 900 mg ORAL AT BEDTIME lithium carbonate ER 450 mg tab(s) 450 mg ORAL DAILY pantoprazole DR 40 mg tab(s) (PROTONIX) 40 mg ORAL DAILY (6 AM) metoprolol succinate ER 50 mg tab(s) (TOPROL XL) 50 mg ORAL DAILY potassium chloride 80-120 mEq oral liquid 80-120 mEq ORAL/FEEDING TUBE PRN potassium chloride iv piggyback 20 mEq/100 mL 20 mEq INTRAVENOUS PRN magnesium sulfate in water 2 g in sterile water 50 ml 2 g INTRAVENOUS PRN sodium glycerophosphate 45 mmol in NaCl 0.9% 250 mL (GLYCOPHOS) 45 mmol INTRAVENOUS PRN calcium gluconate 4 g in NaCl 0.9% 250 mL 4 g INTRAVENOUS PRN NaCl 0.9% 3-5 mL 3-5 mL INTRAVENOUS q 12 H NaCl 0.9% iv infusion 100 mL/hr INTRAVENOUS CONTINUOUS ondansetron 4 mg tab(s) (ZOFRAN) 4 mg ORAL q 6 H PRN Or ondansetron (PF) 4 mg injection (ZOFRAN) 4 mg INTRAVENOUS q 6 H PRN magnesium hydroxide 400 mg/5 mL 30 mL (MOM) 30 mL ORAL DAILY PRN bisacodyl 10 mg suppository (DULCOLAX) 10 mg RECTAL DAILY PRN hydrALAZINE 5 mg injection (APRESOLINE) 5 mg INTRAVENOUS q 1 H PRN oxyCODONE IR 5-10 mg tab(s) (ROXICODONE) 5-10 mg ORAL q 3 H PRN fentaNYL 50 mcg/mL 25-50 mcg injection (SUBLIMAZE) 25-50 mcg INTRAVENOUS q 1 H PRN LABS: CBC, Coags, BMP, Mg, Phos Recent Labs 10/22/18 0420 10/21/180 10/20/182033 WBC 7.48 8.10 7.70 HB 12.4 12.2 12.7 HCT 38.3 37.8 39.0 PLT 115* 125* 132* INR -- -- 1.08 APTT -- -- 28.0 NA 137 137 138 K 3.5 5.4* 3.6 CHLOR 106 108* 106 CO2 24 23 21 BUN 10 10 9 CREAT 0.47* 0.47* 0.54 GLUC 130* 153* 115* CA 9.4 9.3 9.5 MG 2.2 2.2 2.1 P -- 3.5 3.4 CSF AND Dilantin Liver Function, Amylase, AND Lipase Recent Labs 10/21/18 0430 10/20/182033 TPROT 8.1 8.6* ALB 4.0 3.9 ALT 20 23 AST 30 20 ALKPHOS 114 118* TBILI 0.8 0.8 Cardiac Enzymes ABGs DATA: Diagnostic tests reviewed for today's visit: Most recent labs and imaging results. Assessment/Plan Patient is a 58-year-old female with a past medical history significant for paroxysmal atrial fibrillation, hypertension, obesity, bipolar disorder, depression, and anemia and recently discharged from the hospital for a subdural hematoma secondary to a fall with presents as a transfer from [facility] where she presented with recurring headaches, I was just not feeling well, and nausea with no vomiting. Patient states initially was seen at another outside hospital where she was observed in the emergency department and discharged home. Patient however notes that on going home has symptoms continued to worsen resulting in a second visit to the emergency department. According to report from the outside hospital I repeat CT scan revealed a new epidural hematoma resulting the patient being transferred here for further management. Upon unable to the ICU patient endorses headache, and nausea with no vomiting but denied any focal neurologic weakness or vision changes. Neuro 1) Epidural Hematoma ?Patient with a recent history of a fall with TBI and subdural hematoma ?Patient c/o RODRIGUEZ and N/V with no neurologic deficits at this time ?CT scan from OSH with worsening hematoma ?DC keppra ?Repeat CT with stable hematoma and mass effect ?MRI with no new findings Per neurosurgery patient stable hence not a surgical candidate at this time. ?Restarted home HCTZ Metoprolol changed to metoprolol tartrate 12.5 mg BID with hold if HR < 55 ?Hydralazine prn for BP control for BP <140 ?Neurochecks q [address] scan in am ? 2) Headaches ?Likely secondary to hematoma ?Acetaminophen, oxycodone and fentanyl for pain Continued to have headaches ON. ?Monitor for signs of increased ICP ? Cardiac 1)HTN ?Patient with history of HTN ?BPs in the 110s to 130s on arrival ?On HCTZ and Metoprolol ?BP monitoring per unit protocol ?SBP goal <140 ?On prn Hydralazine 2) PAF ?Patient with history of A fib rate controlled on metoprolol. ?HR in in the 40s with regular rhythm ?Decreased metoprolol dosing ?ECG ?Monitor HR 3) Bradycardia Patient with bradycardia to the 40s overnight Hold parameters for metoprolol at <55bpm Dc labetalol ? Pulmonary 1) Tobacco abuse ?Patient is a current smoker ?Smoking cessation education given ?IS ?Oxygen as needed ? Endocrine 1) T2DM ?Patient with HX of T2DM ?HgA1c 7.0 on 10/06/2018 ?Holding home hypoglycemic agents ?Patient on insulin per SSI ? GI/ 1)GERD ?Patient with history of GERD ?Denies any symptoms at this time ?On protonix 2) Urinary retention and incontinence ?Patient with urinary dysfunction ?Ana DSOUZA ?Monitor UOP strictly 3) Diet ?Bedside swallow evaluation completed successfully ?Patient on a DM heart healthy diet ? Heme/Electrolytes 1) Anaemia ?Patient with history of anaemia ?On Iron supplements at home ?Hg at discharge was 11.8 Hg 12.4 ?Holding iron at this time ?Will monitor CBC ? ID Groin rash Patient with bilateral groin rash and excoriation Nystatin powder ordered Body hygiene as needed Will monitor Psychiatry 1) Bipolar disorder ?Patient with history of Bipolar disorder controlle don lithium ?Currently not exhibiting any mood swings or manic behaviour ?On lithium ? [place] levels 0.3 - will recheck in am ?Monitor for behaviour changes 2) Depression ?Patient endorsing recent feelings of increased depression with SI with no plan ?Denies these ideation at time of admission ?Currently on zoloft Medication and Non-Pharmacologic VTE Prophylaxis/Anticoagulants 10/20/181929 vte pharmacologic prophylaxis contraindicated (nm,oh) 10/20/181929 pneumatic compression stockings (nm,oh) VTE Prophylaxis: VTE prophylaxis appropriate PATIENT CHECKLIST ? Are restraints necessary:No ? VTE prophylaxis administered: Yes. Mechanical- Yes. Pharmacological- Yes. ? On sedation: No ? Patient on ventilatory support: No ? Central line or arterial line present: No ? Perez present: No PERSONAL INVOLVEMENT IN CARE: Reviewing initiation, responses and adjustments to therapies, coordination of care, and updating updating family with Staff Physician, Dr. Mike. SIGNATURE: Joyce Palomino MD PATIENT NAME: Elli Guerrero DATE: October 22, 2018 TIME: 7:50 AM PAGER/CONTACT #: [phone] NSICU STAFF ADDENDUM Raul Mike MD Agree with above. Likely postconcussive syndrome. C/w Pamelor for RODRIGUEZ. Repeat CTH tomorrow and if SDH stable would start DVT chemoppx. Ok for floor today. PERSONAL INVOLVEMENT IN CARE: ? ?Patient/Family Updated: Patient and/or family were updated regarding the goals of care,?medical plan for the day, automotive service consultant recommendations, medical disposition and current medical condition/prognosis as and if clinically indicated. All questions and concerns were answered and addressed at this juncture. I agree with the resident MD note as above, except as otherwise indicated; my additional comments, if necessary, are in bold. ? ? SIGNATURE: Raul Mike MD PATIENT NAME: Elli Guerrero DATE: 10/22/18 TIME: 4:29 PM PAGER/CONTACT #: [phone] HEMOGRAM/DIFF Collected: 10/22/2018 Status: F Source: [facility] 4:20 AM HEALTH SYSTEM REPOSITORY TYPE CODE TESTS RESULT OUT OF REFERENCE UNITS RANGE LAB WBC(LOINC) 3.98-10.04 thou/cmm WBC 7.48 LAB RBC(LOINC) 3.93-5.22 mil/cmm RBC 4.27 LAB HGB(LOINC) 11.2-15.7 g/dL Hgb 12.4 LAB HCT(LOINC) 34.1-44.9 % Hct 38.3 LAB MCV(LOINC) 79.4-94.8 fl MCV 89.7 LAB MCH(LOINC) 25.6-32.2 pg MCH 29.0 LAB MCHC(LOINC 31.6-34.8 % ) MCHC 32.4 LAB RDW(LOINC) 11.7-14.4 % RDW 13.8 LAB RDWSD(LOIN 36.4-46.3 fl C) RDW SD 44.7 LAB PLT(LOINC) 182-369 thou/cmm Low Platelet 115 LAB MPV(LOINC) 9.4-12.3 fl MPV 10.2 LAB SEG(LOINC) % Seg Neutrophil 63.0 LAB IGRE(LOINC % ) Immature Grans 0.30 LAB LYMPH(LOIN % C) Lymphocyte 28.9 LAB MNO(LOINC) % Monocyte 5.6 LAB EOSIN(LOIN % C) Eosinophil 1.9 LAB BASO(LOINC % ) Basophil 0.3 LAB SEGN(LOINC 1.56-6.13 thou/cmm ) Abs. Neut (ANC) 4.71 LAB IGAB(LOINC 0.00-0.05 thou/cmm ) Abs Immature Grans 0.02 LAB LYMN(LOINC 1.18-3.74 thou/cmm ) Abs. Lymph 2.16 LAB MONON(LOIN 0.27-0.70 thou/cmm C) Abs. Walsh 0.42 LAB EOSN(LOINC 0.00-0.31 thou/cmm ) Abs. Eosin 0.14 LAB BASON(LOIN 0.01-0.08 thou/cmm C) Abs. Baso 0.02 Performed By: #### CBCD1 #### [place] [address] BASIC PANEL Collected: 10/22/2018 Status: F Source: [facility] 4:20 AM HEALTH SYSTEM REPOSITORY TYPE CODE TESTS RESULT OUT OF REFERENCE UNITS RANGE LAB NA(LOINC) 136-145 mEq/L Sodium Blood 137 LAB K(LOINC) 3.5-5.1 mEq/L Potassium Blood 3.5 LAB CL(LOINC) 98-107 mEq/L Chloride Blood 106 LAB CO2(LOINC) 21-32 mEq/L CO2 Blood 24 LAB GLU(LOINC) 70-99 mg/dL Glucose High Blood 130 LAB BUN(LOINC) 7-18 mg/dL BUN Blood 10 LAB CREA(LOINC 0.51-0.95 mg/dL ) Low Creatinine Blood 0.47 LAB CA(LOINC) 8.5-10.1 mg/dL Calcium Blood 9.4 LAB ANGAP(LOIN 8-16 C) Anion Gap 11 Performed By: #### P8 #### [facility] [address] [place] [address] MAGNESIUM BLOOD Collected: 10/22/2018 Status: F Source: [facility] 4:20 AM HEALTH SYSTEM REPOSITORY TYPE CODE TESTS RESULT OUT OF REFERENCE UNITS RANGE LAB MAG(LOINC) 1.6-2.6 mg/dL Magnesium Blood 2.2 Performed By: #### MAG #### [facility] [address] [place] [address] PROGRESS Observed: 10/21/2018 Status: COMPLETED Source: [facility] 7:11 PM [facility] REPOSITORY HNO ID: [id number] Author: Melissa Schmidt Service: Neurosurgery Author Type: Physician Type: Progress Notes Filed: 10/21/2018 7:15 PM Note Text: Pt seen and examined, family (daughter, ) at bedside. Pt alert awake, oriented fully (person, time, current events, address, place), and following complex commands. She endorses a headache, but denies nausea. She moves all extremities x 4, antigravity and grossly non- focal. Her imaging is stable, and MRI c-spine are grossly unchanged. As such, pt is not a neurosurgical candidate at this time. Please obtain CTH prior to discharge. l will follow as needed. Please call with any questions or concerns. Melissa Schmidt MD PhD [facility] October 21, 2018 7:15 PM NUTRITION Observed: 10/21/2018 Status: COMPLETED Source: [place] 5:[address] [facility] OTHER [place] REPOSITORY HNO ID: [id number] Author: Carolann Ortiz RD Service: Nutrition Therapy Author Type: Registered Dietitian Type: Nutrition Filed: 10/21/2018 5:48 PM Note Text: NUTRITION THERAPY SCREENING NOTE SERVICE DATE: 10/21/2018 SERVICE TIME: 11:30 AM NUTRITION CARE PLAN Consult was ordered possibly by accident. Pt visited at lunch. She did not eat much. Pt did not like the hospital food last admission. Offered her a Boost oral nutrition supplement but she declined. Intervention: Monitor intake. Continue to offer snacks/Boost and preferences if po remains poor. Discharge Nutrition Recommendations: Diet: Carbohydrate Controlled. Per HPI: Pt had a recent admission here. Patient is a 58-year-old female with a past medical history significant for paroxysmal atrial fibrillation, hypertension, obesity, bipolar disorder, depression, and anemia and recently discharged from the hospital for a subdural hematoma secondary to a fall with presents as a transfer from [facility] where she presented with recurring headaches, I was just not feeling well, and nausea with no vomiting. ?Patient states initially was seen at another outside hospital where she was observed in the emergency department and discharged home. ?Patient however notes that on going home has symptoms continued to worsen resulting in a second visit to the emergency department. ?According to report from the outside hospital I repeat CT scan revealed a new epidural hematoma resulting the patient being transferred here for further management. ?Upon unable to the ICU patient endorses headache, and nausea with no vomiting but denied any focal neurologic weakness or vision changes. Current Diet Order DIET CARBOHYDRATE CONTROLLED Order Specific Question: Carbohydrate Control Answer: 3-5 CARBS/MEAL Nutritional Intake Prior to Admission: <75% estimated energy needs over the past 1 week(s) Anthropometrics: Height: 162.6 cm (5' 4) Admission Weight: 114.2 kg (251 lb 12.3 oz) Current Weight: 114.2 kg (251 lb 12.3 oz) Body mass index is 43.22 kg/m?. class 3 obesity Weight has not changed significantly Last Wt 10/20/18 : 114.2 kg (251 lb 12.3 oz) 10/16/18 : 113.1 kg (249 lb 5.4 oz) 10/09/18 : 116.1 kg (256 lb) 07/08/18 : 115.3 kg (254 lb 3.2 oz) 04/03/18 : 118.8 kg (262 lb) 12/27/17 : 118.1 kg (260 lb 6.4 oz) 12/05/17 : 118.4 kg (261 lb) 10/03/17 : 117 kg (258 lb) 05/17/17 : 122.9 kg (271 lb) 02/01/17 : 126.1 kg (278 lb) 01/11/17 : 125.7 kg (277 lb 3.2 oz) 10/25/16 : 126.6 kg (279 lb) 06/14/16 : 126.1 kg (278 lb) 03/20/16 : 130.2 kg (287 lb) 06/28/15 : 127 kg (280 lb) 04/04/15 : 127.5 kg (281 lb) 02/22/15 : 127 kg (280 lb) 02/08/15 : 128.4 kg (283 lb) 09/16/14 : 130.6 kg (288 lb) 06/29/14 : 136.1 kg (300 lb) Recent Labs 10/21/18 0430 GLUC 153* BUN 10 CREAT 0.47* NA 137 K 5.4* CHLOR 108* CO2 23 ALB 4.0 P 3.5 HB 12.2 HCT 37.8 WBC 8.10 MG 2.2 MNT Billing Type: Initial Assess/15 min 2 units SIGNATURE: Carolann Ortiz RD PATIENT NAME: Elli Guerrero DATE: October 21, 2018 TIME: 5:38 PM PAGER: [phone] THERAPY NT Observed: 10/21/2018 Status: COMPLETED Source: [facility] 3:20 PM CLINIC OTHER CAMPUS REPOSITORY HNO ID: [id number] Author: Patsy (Eye Clinic Manager) KIRK Walker/WENDY Service: Speech/Swallow Author Type: Speech Language Pathologist Type: Therapy (PT/OT/Speech/Resp) Filed: 10/21/2018 3:20 PM Note Text: SPEECH THERAPY MISSED VISIT SERVICE DATE: 10/21/2018 SERVICE TIME: 1520 to 1520 ROOM: [place] [address] Attempted Clinical Swallow Evaluation. Patient not seen due to bathing. SIGNATURE: Patsy Walker CCC-RISK DEVELOPER PATIENT NAME: Elli Guerrero DATE: October 21, 2018 TIME: 3:20 PM CASE MGT INIT Observed: 10/21/2018 Status: COMPLETED Source: [facility] 2:06 PM CLINIC OTHER CAMPUS REPOSITORY HNO ID: [id number] Author: Margie HenriquezRn) ANDREI Rodriges Service: Care Management Author Type: Registered Nurse Type: Care Mgt Initial Assessment Filed: 10/21/2018 2:30 PM Note Text: CARE MANAGEMENT: ASSESSMENT AND DISCHARGE PLAN SERVICE DATE: 10/21/2018 SERVICE TIME: 2:06 PM PRIMARY CARE PHYSICIAN: Yandel Bush MD ADMISSION STATUS: Inpatient Needs Prior to Discharge: Home Care Order;OT/PT Evaluation;To Be Determined;Discharge Prescriptions MEDICAL: Patient/Practice Administrator Stated Goals: To have reduction in pain To have reduction in symptoms To improve my functional status To return home to life as it was This has been discussed with my physician This has been discussed with my family Health Insurance: [employer]ze Issues Impacting Discharge Plan: Headache/ epidural hemorrhage Last Admission Date: Previous admit date: 10/13/2018 Is this Within the Past 30 days? Yes Is This a Planned Readmission? No: Recurrent symptoms of underlying disease Followed Up with Appointment Prior to Admission: Patient scheduled, but readmitted prior Where Did the Patient Come From? Home Intervention Taken to Avoid Future Readmission? Pain control/medical treatment Advance Directive: No Health Literacy: 1. How often do you need to have someone help you when you read instructions, pamphlets, or other written material from your doctor or pharmacy? Never - 1 2. How confident are you filling out medical forms by yourself? Extremely - 1 If Patient scores > 3 on either question, the following interventions were put into place: Patient did not score > 3 FUNCTIONAL AND COGNITIVE/BEHAVIORAL PRIOR TO ADMISSION: Baseline Mental Status: Alert AND Oriented, Person, Place , Time and Situation Functional Status: Independent Does Patient Currently Receive Any Community Services or Home Care? None Equipment Prior to Admission: Glucometer Has the Patient Been in a Longterm Facility in the Past 30 days? No SOCIAL: Living Arrangement: Home Lives With: Spouse Financial Resources: Retired Primary Contact: Extended Emergency Contact Information Primary Emergency Contact: Leigha Garcia Relation: Daughter Secondary Emergency Contact: Kvng Velez Relation: Son Supportive: Yes Other Important Patient Contacts: Family: Name: bAner Rubio Cell Caregiver Assessment: Caregiver is ready, willing and able to meet the patient's needs as recommended by the inter-professional team? Yes Patient's transition needs and plan for meeting these needs: TBD Does the patient have an acute stroke diagnosis, or has the patient had a stroke during this admission? Unable to assess at this time Medication Adherence: I am convinced of the importance of my prescription medication: Agree completely - 0 I worry that my prescription medication will do more harm than good to me Disagree mostly - 0 I feel financially burdened by my [id number] expenses for my prescription medication: Disagree completely - 0 Patient is categorized as low risk < 2 Are you interested in bedside delivery of your medications? No Food Concerns: In the Last Month, Have You had Trouble Getting Food? No trouble getting food During the Last Month, Have You Worried Whether Your Food Would Run Out Before You Had Enough Money to Buy More? No Is the Patient Psychosocially Complex? No ASSESSMENT AND PLAN: Medical Needs: 2 or more chronic diseases Psychosocial Needs: None FREEDOM OF CHOICE EXPLAINED: Yes Explained to pateint and dtr Joanne Provider List: Home Care Preference: [facility] POTENTIAL TRANSITION PLANS Home Home Alf OT/PT Rehab Facility To Be Determined Chart reviewed, Patient recently discharged from the hospital a couple of days ago with c for pt/ot with [facility]- referral placed to resume services if discharged home. MRI pending. Await pt/ot evals for any changes in recommendations. D/c plan pending test results and treatment plan. Will continue to follow. SIGNATURE: Margie Rodriges RN PATIENT NAME: Elli Guerrero DATE: October 21, 2018 TIME: 2:06 PM PAGER/CONTACT #: [phone] THERAPY NT Observed: 10/21/2018 Status: COMPLETED Source: [facility] 1:22 PM CLINIC OTHER CAMPUS REPOSITORY HNO ID: [id number] Author: Aimee (Pt) Vianey Service: Physical Therapy Author Type: Physical Therapist Type: Therapy (PT/OT/Speech/Resp) Filed: 10/21/2018 1:22 PM Note Text: PHYSICAL THERAPY MISSED VISIT SERVICE DATE: 10/21/2018 SERVICE TIME: 1322 to 1322 ROOM: [place] [address] Attempted Evaluation. Patient not seen due to Other: See Comment. Jasiel Real RN pt on bedrest 24hrs--please check back tomorrow SIGNATURE: Aimee Winters PT PATIENT NAME: Elli Guerrero DATE: October 21, 2018 TIME: 1:22 PM MRI CERVICAL SPINE Observed: 10/21/2018 Status: F Source: [facility] GENERAL W/WO CONTRAST 12:22 PM HEALTH SYSTEM REPOSITORY Performed at [facility] APPROVED BY: Maikel Prather MD EXAMINATION: MRI CERVICAL SPINE W/WO CONTRAST CLINICAL HISTORY: Trauma , headache, nausea, history of subdural hemorrhage TECHNIQUE: MRI CERVICAL SPINE W/WO CONTRAST. 20 cc Dotarem IV MQ: [id number] COMPARISON: None. RESULT: Counting reference: Craniocervical junction. Anatomic Variants: None. Alignment: Alignment is anatomic. Craniocervical junction: Craniocervical junction is normal. No evidence of a Chiari malformation. Cord: The visualized cord is within normal limits of signal intensity and morphology. No abnormal intradural or extradural enhancement Bone marrow signal/fracture: No evidence of pathologic marrow infiltration. No evidence of acute or chronic fracture. Cervical soft tissues: The paraspinal soft tissues are within normal limits. C2-C3: Moderate degree left facet arthropathy contributing to mild left foraminal stenosis. C3-C4: Moderate degree left facet arthropathy and uncovertebral spurs contributing to a moderate degree left foraminal stenosis. C4-C5: Unremarkable C5-C6: Small uncovertebral spurs with mild central canal narrowing C6-C7: Small uncovertebral spurs and posterior hypertrophic changes contributing to mild central and right foraminal narrowing C7-T1: Unremarkable. IMPRESSION: 1. No MRI evidence of acute or subacute trauma to the cervical spine. 2. Mild degenerative foraminal stenosis secondary to uncovertebral spurs, most prominent at C6-7 and lesser degree C5-6 level 3. No abnormal intradural or extradural enhancement 4. Redemonstration of subdural hemorrhage at the level the posterior fossa. Refer to MRI brain for diagnostic discussion MRI BRAIN W/WO Observed: 10/21/2018 Status: F Source: [facility] GENERAL CONTRAST 12:18 PM HEALTH SYSTEM REPOSITORY Performed at [facility] APPROVED BY: Maikel Prather MD EXAMINATION: MRI BRAIN W/WO CONTRAST, MRA BRAIN W/WO CONTRAST, MRA NECK W/WO CONTRAST CLINICAL HISTORY: Trauma , subdural hematoma, hypertension, diabetes TECHNIQUE: MRI BRAIN W/WO CONTRAST, MRA BRAIN W/WO CONTRAST, MRA NECK W/WO CONTRAST MQ: [id number] Contrast: 20 mL Dotarem IV COMPARISON: 10/21/2018 CT RESULT: Acute Change: There is no evidence of restricted diffusion to suggest an acute infarct. Hemorrhage: No evidence of intra-axial/parenchymal hemorrhage on the gradient echo images. Left cerebral convexity subdural hemorrhage is most prominent in the posterior left temporal region which measures 15 mm in maximum thickness. Moderate degree of mass effect on the subjacent posterior left temporal lobe cortex. Extension of the subdural hemorrhage into the posterior interhemispheric fissure left tentorial leaflet. No evidence of midline shift or herniation Mass Lesion/ Mass Effect: Diffuse enhancement of the dura bilaterally best seen on postcontrast coronal image 18. Chronic Change: The white matter is within normal limits of signal intensity for age. Parenchyma: No significant volume loss for age. Ventricles: Normal caliber and morphology. Skull Base: Hypothalamic and pituitary region are grossly normal. Craniocervical junction is normal. No significant marrow replacement process. Vasculature: Major intracranial arterial structures, and dural venous sinuses show typical flow void, suggesting patency by spin echo criteria. Left vertebral artery is dominant. No measurable or flow-limiting stenosis of the carotid bifurcations. Other: Mucosal inflammatory changes posterior ethmoid and sphenoid sinus. Temporal and mastoid bones are clear. . The orbits and extracranial soft tissues are unremarkable. IMPRESSION: 1. No evidence of acute infarction. 2. Redemonstration of left cerebral convexity subdural hemorrhage with extension into the left tentorial leaflet and posterior interhemispheric fissure, most prominent at the level the posterior left temporal lobe. 3. Nonspecific diffuse enhancement of the dura bilaterally best seen on postcontrast coronal image 18. 4. Negative enhanced and nonenhanced MRA head and neck MRA BRAIN W/WO Observed: 10/21/2018 Status: F Source: [facility] CONTRAST 12:11 PM HEALTH SYSTEM REPOSITORY Performed at [facility] APPROVED BY: Maikel Prather MD EXAMINATION: MRI BRAIN W/WO CONTRAST, MRA BRAIN W/WO CONTRAST, MRA NECK W/WO CONTRAST CLINICAL HISTORY: Trauma , subdural hematoma, hypertension, diabetes TECHNIQUE: MRI BRAIN W/WO CONTRAST, MRA BRAIN W/WO CONTRAST, MRA NECK W/WO CONTRAST MQ: [id number] Contrast: 20 mL Dotarem IV COMPARISON: 10/21/2018 CT RESULT: Acute Change: There is no evidence of restricted diffusion to suggest an acute infarct. Hemorrhage: No evidence of intra-axial/parenchymal hemorrhage on the gradient echo images. Left cerebral convexity subdural hemorrhage is most prominent in the posterior left temporal region which measures 15 mm in maximum thickness. Moderate degree of mass effect on the subjacent posterior left temporal lobe cortex. Extension of the subdural hemorrhage into the posterior interhemispheric fissure left tentorial leaflet. No evidence of midline shift or herniation Mass Lesion/ Mass Effect: Diffuse enhancement of the dura bilaterally best seen on postcontrast coronal image 18. Chronic Change: The white matter is within normal limits of signal intensity for age. Parenchyma: No significant volume loss for age. Ventricles: Normal caliber and morphology. Skull Base: Hypothalamic and pituitary region are grossly normal. Craniocervical junction is normal. No significant marrow replacement process. Vasculature: Major intracranial arterial structures, and dural venous sinuses show typical flow void, suggesting patency by spin echo criteria. Left vertebral artery is dominant. No measurable or flow-limiting stenosis of the carotid bifurcations. Other: Mucosal inflammatory changes posterior ethmoid and sphenoid sinus. Temporal and mastoid bones are clear. . The orbits and extracranial soft tissues are unremarkable. IMPRESSION: 1. No evidence of acute infarction. 2. Redemonstration of left cerebral convexity subdural hemorrhage with extension into the left tentorial leaflet and posterior interhemispheric fissure, most prominent at the level the posterior left temporal lobe. 3. Nonspecific diffuse enhancement of the dura bilaterally best seen on postcontrast coronal image 18. 4. Negative enhanced and nonenhanced MRA head and neck MRA NECK W/WO Observed: 10/21/2018 Status: F Source: [facility] CONTR[facility] 12:11 PM HEALTH SYSTEM REPOSITORY Performed at [facility] APPROVED BY: Maikel Prather MD EXAMINATION: MRI BRAIN W/WO CONTRAST, MRA BRAIN W/WO CONTRAST, MRA NECK W/WO CONTRAST CLINICAL HISTORY: Trauma , subdural hematoma, hypertension, diabetes TECHNIQUE: MRI BRAIN W/WO CONTRAST, MRA BRAIN W/WO CONTRAST, MRA NECK W/WO CONTRAST MQ: [id number] Contrast: 20 mL Dotarem IV COMPARISON: 10/21/2018 CT RESULT: Acute Change: There is no evidence of restricted diffusion to suggest an acute infarct. Hemorrhage: No evidence of intra-axial/parenchymal hemorrhage on the gradient echo images. Left cerebral convexity subdural hemorrhage is most prominent in the posterior left temporal region which measures 15 mm in maximum thickness. Moderate degree of mass effect on the subjacent posterior left temporal lobe cortex. Extension of the subdural hemorrhage into the posterior interhemispheric fissure left tentorial leaflet. No evidence of midline shift or herniation Mass Lesion/ Mass Effect: Diffuse enhancement of the dura bilaterally best seen on postcontrast coronal image 18. Chronic Change: The white matter is within normal limits of signal intensity for age. Parenchyma: No significant volume loss for age. Ventricles: Normal caliber and morphology. Skull Base: Hypothalamic and pituitary region are grossly normal. Craniocervical junction is normal. No significant marrow replacement process. Vasculature: Major intracranial arterial structures, and dural venous sinuses show typical flow void, suggesting patency by spin echo criteria. Left vertebral artery is dominant. No measurable or flow-limiting stenosis of the carotid bifurcations. Other: Mucosal inflammatory changes posterior ethmoid and sphenoid sinus. Temporal and mastoid bones are clear. . The orbits and extracranial soft tissues are unremarkable. IMPRESSION: 1. No evidence of acute infarction. 2. Redemonstration of left cerebral convexity subdural hemorrhage with extension into the left tentorial leaflet and posterior interhemispheric fissure, most prominent at the level the posterior left temporal lobe. 3. Nonspecific diffuse enhancement of the dura bilaterally best seen on postcontrast coronal image 18. 4. Negative enhanced and nonenhanced MRA head and neck [facility]IED [facility] Observed: 10/21/2018 Status: COMPLETED Source: [facility] 11:46 AM CLINIC OTHER CAMPUS REPOSITORY O ID: [id number] Author: Chaplain Ceron (Chaplain) Service: Spiritual Care Author Type: Division Manager Type: Allied Health Filed: 10/21/2018 11:46 AM Note Text: SPIRITUALCARE Spiritual Care Visit- Brief Note Name: Elli Guerrero Date: October 21, 2018 Notes: Division Manager attempted to visit with patient and patient was asleep. Division Manager Signature: Chaplain Osmany To contact the Spiritual Care Department: Please call [phone] or Page the On-Call Division Manager at pager [phone] Thank you for the opportunity to be of service. This is an electronically created document. IF PRINTED, PLEASE DO NOT REMOVE FROM THE CHART OR MODIFY PRINTED COPY. PLAN OF CARE Observed: 10/21/2018 Status: COMPLETED Source: [facility] 11:14 AM CLINIC OTHER CAMPUS REPOSITORY O ID: [id number] Author: Evita De León (Pharmacist) Service: Pharmacy Author Type: Pharmacist Type: Plan of Care Filed: 10/21/2018 11:33 AM Note Text: MEDICATION HISTORY AND MEDICATION RECONCILIATION Patient Name:Phil Guerrero : 1960 Source of history:Pharmacy records: [facility] ([place] [phone]); [facility] ([place]: [phone]); [facility] ([place], [place] [phone]) Medication Nonadherence Identified: No barriers noted The above information represents the best possible medication history: Yes Reconciliation completed? Yes All MUSIC DIRECTOR medications addressed by LIP Additional comments: Please note the following adjustments: Medications added: - None Medications updated: - [place] now updated to represent 450 mg in AM and 900 mg HS as separate orders Medications removed: - Apremilast, last filled 07/30/18 for 30d supply. Per previous documentation, medication cancelled - Keppra, only filled for one tablet on 10/07/18 - Nitroglycerin, not filled for greater than 1 year, prescription . Allergies: ALLERGIES No Known Allergies Preferred Pharmacy: [facility] Current MUSIC DIRECTOR Medications: Prior to Admission medications as of 10/21/18 1130 Medication Sig Last Dose Taking lithium carbonate ER 450 mg CR tablet Take 900 mg by mouth daily at bedtime. Yes lithium carbonate ER 450 mg CR tablet Take 450 mg by mouth once daily. Yes Hydrochlorothiazide 12.5 mg capsule Take 12.5 mg by mouth once daily. Yes Ferrous Gluconate (FERGON) 324 mg (38 mg iron) tablet TAKE ONE TABLET BY MOUTH TWICE DAILY WITH MEALS Yes pantoprazole DR (PROTONIX) 40 mg tablet TAKE ONE TABLET BY MOUTH ONCE DAILY Yes metFORMIN (GLUCOPHAGE) 500 mg tablet Take 2 tablets by mouth twice daily with meals. Yes glimepiride (AMARYL) 4 mg tablet Take 1 tablet by mouth daily with breakfast. Yes FARXIGA 10 mg tab TAKE ONE TABLET BY MOUTH DAILY Yes metoprolol succinate ER (TOPROL XL) 50 mg 24 hr tablet Take 1 tablet by mouth once daily. Yes hydroxychloroquine (PLAQUENIL) 200 mg tablet Take 200 mg by mouth twice daily. Yes sertraline (ZOLOFT) 100 mg tablet Take 150 mg by mouth once daily. Yes EVITA DE LEÓN, PHARMACIST October 21, 2018 11:22 AM THERAPY NT Observed: 10/21/2018 Status: COMPLETED Source: [facility] 9:07 AM [facility] REPOSITORY HNO ID: [id number] Author: Terrie (Otr/L) Gavino Service: Occupational Therapy Author Type: Occupational Therapist Type: Therapy (PT/OT/Speech/Resp) Filed: 10/21/2018 9:09 AM Note Text: OCCUPATIONAL THERAPY MISSED VISIT SERVICE DATE: 10/21/2018 SERVICE TIME: 903 to 904 ROOM: [place] [address] Attempted Evaluation. Patient not seen due to new imaging this am and Bedrest order still in place, with neuro consult pending. Noted LUE imaging due to pain to be negative for acute fracture. Will follow up as patient status/schedule permit after activity order/neuro findings received. SIGNATURE: ELOINA Aguirre/Cecilio PATIENT NAME: Elli Guerrero DATE: October 21, 2018 TIME: 9:07 AM PROGRESS Observed: 10/21/2018 Status: COMPLETED Source: [facility] 8:21 AM [facility] REPOSITORY HNO ID: [id number] Author: Raul Mike Service: Neurology ICU Author Type: Physician Type: Progress Notes Filed: 10/21/2018 2:34 PM Note Text: NEURO ICU - PROGRESS NOTE SERVICE DATE: 10/21/2018 SERVICE TIME: 8:22 AM Overnight patient continues to c/o headaches. Started on fentanyl and oxycodone for pain control. CT brain with stable findings. For MRI in am. Objective DETAILED REVIEW VITAL SIGNS (last 24hrs min/max): 10/21/18 0200 10/21/18 0300 10/21/18 0400 10/21/18 0500 BP: 108/72 (!) 50/21 113/66 126/60 Pulse: (!) 51 (!) 49 (!) 48 (!) 51 Resp: Temp: 36.4 ?C (97.5 ?F) TempSrc: Temporal Artery SpO2: 98% 97% 97% 96% Weight: Height: INTAKE/OUTPUT: Intake/Output Summary (Last 24 hours) at 10/21/18 0826 Last data filed at 10/21/18 0300 Gross per 24 hour Intake 738 ml Output 1375 ml Net -637 ml CSF: N/A MIVF: NS - Rate: 100 ml/hr PO/TF: PO FREE WATER: N/A BM: Has the patient had a BM in the last 24 hours? No. Intervention: Stool softener PHYSICAL EXAM AND PERTINENT DATA Neuro: Patient is alert and oriented ?3, able to follow commands, pupils equal round and reactive, able to move all extremities with no cerebellar deficits. CV: Heart rate and rhythm regular with no murmurs or gallops appreciated. Pulm: Lungs clear to auscultation bilaterally with no wheezes or crackles appreciated. GI/: Abdomen soft nondistended nontender with positive bowel sounds. Skin/Extremities: Edema- No Peripheral pulses- Present all extremities Wounds/Drsgs- No Breakdown- No Current Facility-Administered Medications: iv contrast (radiology procedure) INTRAVENOUS DIRECTED PRN iv contrast (radiology procedure) INTRAVENOUS DIRECTED PRN levETIRAcetam 1,000 mg tab(s) (KEPPRA) 1,000 mg ORAL BID apremilast 30 mg tab(s) (OTEZLA) 30 mg ORAL DAILY hydroxychloroquine 200 mg (PLAQUENIL) 200 mg ORAL BID pantoprazole DR 40 mg tab(s) (PROTONIX) 40 mg ORAL DAILY (6 AM) Hydrochlorothiazide 12.5 mg 12.5 mg ORAL DAILY sertraline (ZOLOFT) tab(s) 150 mg 150 mg ORAL DAILY metoprolol succinate ER 50 mg tab(s) (TOPROL XL) 50 mg ORAL DAILY potassium chloride 80-120 mEq oral liquid 80-120 mEq ORAL/FEEDING TUBE PRN potassium chloride iv piggyback 20 mEq/100 mL 20 mEq INTRAVENOUS PRN magnesium sulfate in water 2 g in sterile water 50 ml 2 g INTRAVENOUS PRN sodium glycerophosphate 45 mmol in NaCl 0.9% 250 mL (GLYCOPHOS) 45 mmol INTRAVENOUS PRN calcium gluconate 4 g in NaCl 0.9% 250 mL 4 g INTRAVENOUS PRN NaCl 0.9% 3-5 mL 3-5 mL INTRAVENOUS q 12 H NaCl 0.9% iv infusion 100 mL/hr INTRAVENOUS CONTINUOUS Chlorhexidine Gluconate 0.12 % 15 mL (PERIDEX) 15 mL ORAL QID ondansetron 4 mg tab(s) (ZOFRAN) 4 mg ORAL q 6 H PRN Or ondansetron (PF) 4 mg injection (ZOFRAN) 4 mg INTRAVENOUS q 6 H PRN magnesium hydroxide 400 mg/5 mL 30 mL (MOM) 30 mL ORAL DAILY PRN docusate sodium 100 mg cap(s) (COLACE) 100 mg ORAL BID PRN bisacodyl 10 mg suppository (DULCOLAX) 10 mg RECTAL DAILY PRN hydrALAZINE 5 mg injection (APRESOLINE) 5 mg INTRAVENOUS q 1 H PRN dextrose 40 % 15 g 15 g ORAL PRN Or glucagon 1 mg injection (GLUCAGEN) 1 mg INTRAMUSCULAR PRN Or dextrose 50% in water 25 mL syringe 12.5 g INTRAVENOUS PRN insulin lispro pen (rapid acting) (HumaLOG KWIKPEN) SUBCUTANEOUS w MEALS potassium chloride ER 40 mEq tab(s) (K-DUR, KLOR-CON) 40 mEq ORAL ONCE acetaminophen 650 mg tab(s) (TYLENOL) 650 mg ORAL q 4 H PRN oxyCODONE IR 5-10 mg tab(s) (ROXICODONE) 5-10 mg ORAL q 3 H PRN fentaNYL 50 mcg/mL 25-50 mcg injection (SUBLIMAZE) 25-50 mcg INTRAVENOUS q 1 H PRN LABS: CBC, Coags, BMP, Mg, Phos Recent Labs 10/21/1842910/20/182033 WBC 8.10 7.70 HB 12.2 12.7 HCT 37.8 39.0 PLT 125* 132* INR -- 1.08 APTT -- 28.0 NA 137 138 K 5.4* 3.6 CHLOR 108* 106 CO2 23 21 BUN 10 9 CREAT 0.47* 0.54 GLUC 153* 115* CA 9.3 9.5 MG 2.2 2.1 P 3.5 3.4 CSF AND Dilantin Liver Function, Amylase, AND Lipase Recent Labs 10/21/18 0430 10/20/182033 TPROT 8.1 8.6* ALB 4.0 3.9 ALT 20 23 AST 30 20 ALKPHOS 114 118* TBILI 0.8 0.8 Cardiac Enzymes ABGs No new labs DATA: Diagnostic tests reviewed for today's visit: Most recent labs and imaging results. Assessment/Plan Patient is a 58-year-old female with a past medical history significant for paroxysmal atrial fibrillation, hypertension, obesity, bipolar disorder, depression, and anemia and recently discharged from the hospital for a subdural hematoma secondary to a fall with presents as a transfer from [facility] where she presented with recurring headaches, I was just not feeling well, and nausea with no vomiting. Patient states initially was seen at another outside hospital where she was observed in the emergency department and discharged home. Patient however notes that on going home has symptoms continued to worsen resulting in a second visit to the emergency department. According to report from the outside hospital I repeat CT scan revealed a new epidural hematoma resulting the patient being transferred here for further management. Upon unable to the ICU patient endorses headache, and nausea with no vomiting but denied any focal neurologic weakness or vision changes. Neuro 1) Epidural Hematoma Patient with a recent history of a fall with TBI and subdural hematoma Patient c/o RODRIGUEZ and N/V with no neurologic deficits at this time CT scan from OSH with worsening hematoma On Keppra for seizure precaution Repeat CT with stable hematoma and mass effect Neurosurgery consulted Restarted home HCTZ and metoprolol Hydralazine prn for BP control for BP <140 Neurochecks q 1 hour For MRI brain this am ? 2) Headaches Likely secondary to hematoma Acetaminophen and fentanyl for pain Continued to have headaches ON. Added oxycodone Monitor for signs of increased ICP ? Cardiac 1)HTN Patient with history of HTN BPs in the 110s to 130s on arrival Restarted home HCTZ and Metoprolol BP monitoring per unit protocol SBP goal <140 On prn Hydralazine and labetalol 2) PAF Patient with history of A fib rate controlled on metoprolol. HR in in the 80s with regular rhythm on admission Will continue home metoprolol ECG Monitor HR 3) Bradycardia Patient with bradycardia to the 40s overnight Hold parameters for metoprolol at <55bpm Dc labetalol ? Pulmonary 1) Tobacco abuse Patient is a current smoker Smoking cessation education given IS Oxygen as needed Endocrine 1) T2DM Patient with HX of T2DM HgA1c 7.0 on 10/06/2018 Holding home hypoglycemic agents Patient on insulin per SSI ? GI/ 1)GERD Patient with history of GERD Denies any symptoms at this time Restarted home protonix 2) Urinary retention and incontinence Patient with urinary dysfunction Perez catheter in place from OSH Monitor UOP strictly Attempt perez DC after 24 hours 3) Diet Bedside swallow evaluation completed successfully Patient on a DM diet ? Heme/Electrolytes 1) Anaemia Patient with history of anaemia On Iron supplements at home Hg at discharge was 11.8 Hg 12.2 Holding iron at this time Will monitor CBC ID Groin rash Patient with bilateral groin rash and excoriation Nystatin powder ordered Body hygiene as needed Will monitor Psychiatry 1) Bipolar disorder Patient with history of Bipolar disorder controlle don lithium Currently not exhibiting any mood swings or manic behaviour Restarted home lithium Will obtain lithium levels Monitor for behaviour changes 2) Depression Patient endorsing recent feelings of increased depression with SI with no plan Denies these ideation at time of admission Currently on zoloft at home Will restart home zoloft Medication and Non-Pharmacologic VTE Prophylaxis/Anticoagulants 10/20/181929 vte pharmacologic prophylaxis contraindicated (nm,oh) 10/20/181929 pneumatic compression stockings (nm,tx) VTE Prophylaxis: VTE prophylaxis appropriate PATIENT CHECKLIST ? Are restraints necessary: No ? VTE prophylaxis administered: Yes. Mechanical- Yes. Pharmacological- No. ? On sedation: No ? Patient on ventilatory support: No ? Central line or arterial line present: No ? Perez present: Yes. Able to D/C: No, close I/O monitoring PERSONAL INVOLVEMENT IN CARE: Reviewing initiation, responses and adjustments to therapies, coordination of care, and updating updating family with Staff Physician, . SIGNATURE: Joyce Palomino MD PATIENT NAME: Elli Guerrero DATE: October 21, 2018 TIME: 8:22 AM PAGER/CONTACT #: [phone] HEMOGRAM/DIFF Collected: 10/21/2018 Status: F Source: [facility] 4:30 AM HEALTH SYSTEM REPOSITORY TYPE CODE TESTS RESULT OUT OF REFERENCE UNITS RANGE LAB WBC(LOINC) 3.98-10.04 thou/cmm WBC 8.10 LAB RBC(LOINC) 3.93-5.22 mil/cmm RBC 4.19 LAB HGB(LOINC) 11.2-15.7 g/dL Hgb 12.2 LAB HCT(LOINC) 34.1-44.9 % Hct 37.8 LAB MCV(LOINC) 79.4-94.8 fl MCV 90.2 LAB MCH(LOINC) 25.6-32.2 pg MCH 29.1 LAB MCHC(LOINC 31.6-34.8 % ) MCHC 32.3 LAB RDW(LOINC) 11.7-14.4 % RDW 13.9 LAB RDWSD(LOIN 36.4-46.3 fl C) RDW SD 45.5 LAB PLT(LOINC) 182-369 thou/cmm Low Platelet 125 LAB MPV(LOINC) 9.4-12.3 fl MPV 10.1 LAB SEG(LOINC) % Seg Neutrophil 74.0 LAB IGRE(LOINC % ) Immature Grans 0.60 LAB LYMPH(LOIN % C) Lymphocyte 19.4 LAB MNO(LOINC) % Monocyte 5.1 LAB EOSIN(LOIN % C) Eosinophil 0.7 LAB BASO(LOINC % ) Basophil 0.2 LAB SEGN(LOINC 1.56-6.13 thou/cmm ) Abs. Neut (ANC) 5.99 LAB IGAB(LOINC 0.00-0.05 thou/cmm ) Abs Immature Grans 0.05 LAB LYMN(LOINC 1.18-3.74 thou/cmm ) Abs. Lymph 1.57 LAB MONON(LOIN 0.27-0.70 thou/cmm C) Abs. Walsh 0.41 LAB EOSN(LOINC 0.00-0.31 thou/cmm ) Abs. Eosin 0.06 LAB BASON(LOIN 0.01-0.08 thou/cmm C) Abs. Baso 0.02 Performed By: #### [id number] #### [place] [address] COMPREHENSIVE PANEL Collected: 10/21/2018 Status: F Source: [facility] 4:30 AM HEALTH SYSTEM REPOSITORY TYPE CODE TESTS RESULT OUT OF REFERENCE UNITS RANGE LAB NA(LOINC) 136-145 mEq/L Sodium Blood 137 LAB K(LOINC) 3.5-5.1 mEq/L High Potassium Blood 5.4 Result Comment: SPECIMEN SLIGHTLY HEMOLYZED LAB CL(LOINC) 98-107 mEq/L Chloride High Blood 108 LAB CO2(LOINC) 21-32 mEq/L CO2 Blood 23 LAB GLU(LOINC) 70-99 mg/dL Glucose High Blood 153 LAB BUN(LOINC) 7-18 mg/dL BUN Blood 10 LAB CREA(LOINC) 0.51-0.95 mg/dL Creatinine Low Blood 0.47 LAB CA(LOINC) 8.5-10.1 mg/dL Calcium Blood 9.3 LAB ALB(LOINC) 3.4-5.0 g/dL Albumin Blood 4.0 LAB TP(LOINC) 6.4-8.2 g/dL Total Protein 8.1 LAB AST(LOINC) 9-37 U/L AST-SGOT Blood 30 LAB ALT(LOINC) 12-78 U/L ALT-SGPT Blood 20 LAB ALKP(LOINC) 46-116 U/L Alk Phosphatase 114 LAB BILIT(LOINC) 0.2-1.0 mg/dL Total Bilirubin 0.8 LAB ANGAP(LOINC) 8-16 Anion Gap 11 Performed By: #### P14 #### [place] [address] PHOSPHORUS BLOOD Collected: 10/21/2018 Status: F Source: [facility] 4:30 AM HEALTH SYSTEM REPOSITORY TYPE CODE TESTS RESULT OUT OF REFERENCE UNITS RANGE LAB PHOS(LOINC 2.5-4.9 mg/dL ) Phosphorus Blood 3.5 Performed By: #### PHOS #### [place] [address] MAGNESIUM BLOOD Collected: 10/21/2018 Status: F Source: [facility] 4:30 AM HEALTH SYSTEM REPOSITORY TYPE CODE TESTS RESULT OUT OF REFERENCE UNITS RANGE LAB MAG(LOINC) 1.6-2.6 mg/dL Magnesium Blood 2.2 Performed By: #### MAG #### [place] [address] HUMERUS 2V AP/LAT Observed: 10/21/2018 Status: F Source: [facility] 4:25 AM HEALTH SYSTEM REPOSITORY Performed at [facility] APPROVED BY: Alden Cherry MD EXAM TITLE: SHOULDER 3V OR MORE AP/TRUE AP/OTHER LEFT, HUMERUS 2V AP/LAT LEFT DATE: 10/21/2018 04:24 COMPARISON: None. CLINICAL INDICATION/HISTORY: Left arm pain TECHNIQUE: AP, oblique and axillary views of the left shoulder along with AP and lateral views of the left humerus FINDINGS: All visualized soft tissues and bony structures at the left shoulder and humerus are normal. Joint spaces are preserved. IMPRESSION: Normal left shoulder and humerus. SHOULDER 3V OR MORE Observed: 10/21/2018 Status: F Source: [facility] AP/TRUE AP/OTHER LEFT 4:25 AM HEALTH SYSTEM REPOSITORY Performed at [facility] APPROVED BY: Alden Cherry MD EXAM TITLE: SHOULDER 3V OR MORE AP/TRUE AP/OTHER LEFT, HUMERUS 2V AP/LAT LEFT DATE: 10/21/2018 04:24 COMPARISON: None. CLINICAL INDICATION/HISTORY: Left arm pain TECHNIQUE: AP, oblique and axillary views of the left shoulder along with AP and lateral views of the left humerus FINDINGS: All visualized soft tissues and bony structures at the left shoulder and humerus are normal. Joint spaces are preserved. IMPRESSION: Normal left shoulder and humerus. CT HEAD W/O CONTRAST Observed: 10/21/2018 Status: F Source: [facility] 4:08 AM HEALTH SYSTEM REPOSITORY Performed at [facility] APPROVED BY: Darius Michael MD EXAMINATION: CT HEAD W/O CONTRAST CLINICAL HISTORY: Intracranial hemorrhage. Follow-up. TECHNIQUE: Serial axial images without IV contrast were obtained from the vertex to the foramen magnum. CT Dose-Length Product: 744.0 mGy*cm CT Dose Reduction Employed: 3. mAs or kVp was manually adjusted based on either the patient size or age. COMPARISON: 10/20/2018 at 2139 hours RESULT: Post-operative change: None. Acute change: No evidence of an acute infarct or other acute parenchymal process. Hemorrhage: Lentiform extra-axial hematoma along the left superolateral temporal convexity measures approximately 14 mm in maximal thickness, similar compared to prior examination. Minimal subdural hematoma along the posterior hemispheric falx and left tentorial leaflet, similar. No new hemorrhage in the interval. Mass Lesion / Mass Effect: Local mass effect is again seen upon the left temporal lobe. There is slight left lateral ventricular effacement. No gross midline shift, similar. Chronic change: None apparent. Parenchyma: There is no significant volume loss. The brain parenchyma is otherwise within normal limits for age. Ventricles: The ventricles are within normal limits of size and configuration for age. Paranasal sinuses and skull base: Minimal opacification sphenoid sinus. The skull base and imaged soft tissues are unremarkable. IMPRESSION: No significant change. Grossly similar left lateral temporal region extra-axial hematoma estimated to measure approximately 14 mm in maximal thickness and minimal subdural hemorrhage along the interhem ispheric falx and left tentorial leaflet. No new hemorrhage in the interval. Similar local mass effect as detailed. URINALYSIS ROUTINE Collected: 10/20/2018 Status: F Source: [facility] 9:55 PM HEALTH SYSTEM REPOSITORY TYPE CODE TESTS RESULT OUT OF RANGE REFERENCE UNITS LAB COLOR(LOIN C) Urine Color YELLOW LAB APPUR(LOIN C) Urine Appearance CLEAR LAB GLUUR(LOIN Negative mg/dL C) Glucose Urine NEGATIVE LAB KETON(LOIN Negative mg/dL C) Abnormal Ketone Urine 15 LAB HGBUR(LOIN Negative C) Abnormal Hemoglobin,Urin SMALL e LAB PROTU(LOIN Negative mg/dL C) Protein Urine NEGATIVE LAB NITRI(LOIN Negative C) Nitrites Urine NEGATIVE LAB BILIU(LOIN Negative C) Bilirubin Urine NEGATIVE LAB SPG(LOINC) 1.005-1.030 Specific 1.027 [place], Ur LAB PHUR(LOINC 5.0-8.0 ) pH,Urine 6.5 LAB UROBI(LOIN 0.0-1.0 EU/dL C) Urobilinogen,Ur 1.0 LAB LEUKO(LOIN Negative C) Leukocytes NEGATIVE Esterase LAB RBCU1(LOIN 0.0-5.0 /hpf C) High RBC,Urine 7.4 LAB WBCU1(LOIN 0.0-5.0 /hpf C) WBC, Urine 1.5 LAB EPIT1(LOIN 0.0-5.0 /hpf C) Ep Cells Urine 0.5 LAB BACT1(LOIN None C) Bacteria Urine NONE LAB HYCA1(LOIN 0.0-1.0 /lpf C) Hyaline Cast 0.0 Performed By: #### URIN2 #### [facility] [address] [place] [address] [address] HEAD W/O CONTRAST Observed: 10/20/2018 Status: F Source: [facility] 9:41 PM HEALTH SYSTEM REPOSITORY Performed at [facility] APPROVED BY: ELSI VARGAS MD EXAMINATION: CT HEAD W/O CONTRAST CLINICAL HISTORY: Left-sided epidural hematoma and minimal subdural blood along left tentorial leaf. TECHNIQUE: Serial axial images without IV contrast were obtained from the vertex to the foramen magnum. MQ: [id number] CT Dose-Length Product (DLP): 761 mGy*cm CT Dose Reduction Employed: Automatic exposure control. COMPARISON: 10/14/2018. RESULT: Post-operative change: None. Acute change: No evidence for focal acute brain ischemia. Hemorrhage: Epidural hematoma along lateral aspect left temporal lobe is grossly unchanged in configuration. Maximum thickness approximately 14 mm just above the left petrous ridge. Very low volume subdural blood along left tentorial leaf, similar to previous exam. Mass Lesion / Mass Effect: Local mass effect upon the left temporal lobe. No gross shift. Chronic change: None apparent. Parenchyma: There is no significant volume loss. Ventricles: The ventricles are within normal limits of size and configuration for age. Paranasal sinuses and skull base: The visualized paranasal sinuses are grossly clear. The skull base and imaged soft tissues are unremarkable. IMPRESSION: Grossly similar configuration of left lateral temporal epidural hematoma and very low volume subdural blood along left tentorial leaf. Local mass effect. No gross shift and no new areas of hemorrhage identified. HISTORY PHYSICAL Observed: 10/20/2018 Status: COMPLETED Source: [facility] 9:05 PM CLINIC OTHER CAMPUS REPOSITORY HNO ID: [id number] Author: Raul Mike Service: Neurology ICU Author Type: Physician Type: HANDP Filed: 10/21/2018 2:33 PM Note Text: HANDP ICU NEUROLOGY SERVICE DATE: 10/20/2018 SERVICE TIME: 1831 Subjective Patient is a 58-year-old female with a past medical history significant for paroxysmal atrial fibrillation, hypertension, obesity, bipolar disorder, depression, and anemia and recently discharged from the hospital for a subdural hematoma secondary to a fall with presents as a transfer from [facility] where she presented with recurring headaches, I was just not feeling well, and nausea with no vomiting. Patient states initially was seen at another outside hospital where she was observed in the emergency department and discharged home. Patient however notes that on going home has symptoms continued to worsen resulting in a second visit to the emergency department. According to report from the outside hospital I repeat CT scan revealed a new epidural hematoma resulting the patient being transferred here for further management. Upon unable to the ICU patient endorses headache, and nausea with no vomiting but denied any focal neurologic weakness or vision changes. PAST MEDICAL HISTORY Diagnosis Date - Anemia - Bipolar affect, depressed (HCC) - Diabetes mellitus - Dyslipidemia - Elevated liver enzymes - Esophageal reflux - Fatty liver - GERD (gastroesophageal reflux disease) - Hypertension - Leukocytosis, unspecified - Obesity - Obstructive sleep apnea (adult) (pediatric) - PAF (paroxysmal atrial fibrillation) (HCC) - Personal history of colonic polyps - Smoking - Stroke (HCC) - Urge incontinence 02/01/2017 PAST SURGICAL HISTORY Procedure Laterality Date - APPENDECTOMY 1976 - COLONOSCOP W/ OR W/O BRSH SPEC 02/13/2017 Colonoscopy mac - COLONOSCOPY 04/17/2011 X6. TA in 2008 - EGD W/O OR W/BRUSH/WASH 06/09/14 EGD - EGD W/O OR W/BRUSH/WASH 02/13/2017 EGD mac - FOOT RIGHT OP SURGERY 1992 rebuilt bottom of right foot - HEART CATHETERIZATION - LIGATE FALLOPIAN TUBE 1982 - REMOVAL OF GALLBLADDER 1977 - SCREENING COLONOSCOPY, NOT HIGH RISK PT 04/17/2011 next 04/17/16, Dr. Dimitris Staton Brule - TOTAL ABDOM HYSTERECTOMY Hysterectomy, LEONILA - TOTAL HIP REPLACEMENT bilateral 2007 right hip, 2010 lef t hip FAMILY HISTORY Problem Relation Age of Onset - Diabetes Mother - Hypertension Mother - Cancer Father lung cancer - Diabetes Father - Heart Father CA x 2 - Hypertension Father - Diabetes Maternal Grandmother - Diabetes Maternal Grandfather - Diabetes Paternal Grandmother - Hypertension Paternal Grandmother - Diabetes Paternal Grandfather - Heart Paternal Grandfather CA Social History Marital status: Spouse name: Years of education: Number of children: 3 Social History Main Topics Smoking status: Former Smoker Packs/day: 1.00 Years: 9.00 Quit date: 01/08/1990 Smokeless tobacco: Former User Alcohol use: Yes Comment: extremely rare Drug use: No Sexual activity: No Other Topics Concern Service No Blood Transfusions Yes Seat Belt Yes 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 Disp: 2 tablet Rfl: 0 Hydrochlorothiazide 12.5 mg capsule Take 12.5 mg by mouth once daily. Disp: Rfl: apremilast (OTEZLA) 30 mg tablet Take 30 mg by mouth once daily. Disp: Rfl: Ferrous Gluconate (FERGON) 324 mg (38 mg iron) tablet TAKE ONE TABLET BY MOUTH TWICE DAILY WITH MEALS Disp: 60 tablet Rfl: [address] (PROTONIX) 40 mg tablet TAKE ONE TABLET BY MOUTH ONCE DAILY Disp: 90 tablet Rfl: 1 metFORMIN (GLUCOPHAGE) 500 mg tablet Take 2 tablets by mouth twice daily with meals. Disp: 360 tablet Rfl: 1 glimepiride (AMARYL) 4 mg tablet Take 1 tablet by mouth daily with breakfast. Disp: 90 tablet Rfl: 1 FARXIGA 10 mg tab TAKE ONE TABLET BY MOUTH DAILY Disp: 30 tablet Rfl: 5 metoprolol succinate ER (TOPROL XL) 50 mg 24 hr tablet Take 1 tablet by mouth once daily. Disp: 90 tablet Rfl: 3 Taking hydroxychloroquine (PLAQUENIL) 200 mg tablet Take 200 mg by mouth twice daily. Disp: Rfl: Taking nitroglycerin sublingual (NITROQUICK) 0.4 mg SL tablet Dissolve 1 tablet under the tongue as needed. FOR CHEST PAIN. IF NO RELIEF CALL 911 Disp: 25 tablet Rfl: 3 Taking lithium carbonate ER 450 mg CR tablet Take 2 tablets by mouth twice daily. (Patient taking differently: Take 450 mg by mouth twice daily. 450 mg in the morning and 900 mg in the evening. ) Disp: Rfl: 0 Taking Differently sertraline (ZOLOFT) 100 mg tablet Take 150 mg by mouth once daily. Disp: Rfl: 0 Taking ALLERGIES No Known Allergies Objective ROS: Unable to Complete DETAILED REVIEW VITAL SIGNS (last 24hrs min/max): Temp Av.3 ?C (97.3 ?F) Min: 36.3 ?C (97.3 ?F) Max: 36.3 ?C (97.3 ?F) Pulse Av.5 Min: 56 Max: 57 Cuff BP Min: 94/68 Max: 121/64 Resp Av.5 Min: 18 Max: 19 SpO2 Av.5 % Min: 95 % Max: 100 % No Data Recorded No Data Recorded No Data RecordedNo Data RecordedNo Data Recorded Pain Score: 7/10 INTAKE/OUTPUT Intake/Output Summary (Last 24 hours) at 10/21/18 0825 Last data filed at 10/21/18 0300 Gross per 24 hour Intake 738 ml Output 1375 ml Net -637 ml PHYSICAL EXAM Neuro: Patient is alert and oriented ?3, able to follow commands, pupils equal round and reactive, able to move all extremities with no cerebellar deficits. CV: Heart rate and rhythm regular with no murmurs or gallops appreciated. Pulm: Lungs clear to auscultation bilaterally with no wheezes or crackles appreciated. GI/: Abdomen soft nondistended nontender with positive bowel sounds. Skin/Extremities: Edema- No Peripheral pulses- Present all extremities Wounds/Drsgs- No Breakdown- No MEDICATIONS Current Facility-Administered Medications: iv contrast (radiology procedure) INTRAVENOUS DIRECTED PRN iv contrast (radiology procedure) INTRAVENOUS DIRECTED PRN levETIRAcetam 1,000 mg tab(s) (KEPPRA) 1,000 mg ORAL BID apremilast 30 mg tab(s) (OTEZLA) 30 mg ORAL DAILY hydroxychloroquine 200 mg (PLAQUENIL) 200 mg ORAL BID pantoprazole DR 40 mg tab(s) (PROTONIX) 40 mg ORAL DAILY (6 AM) Hydrochlorothiazide 12.5 mg 12.5 mg ORAL DAILY sertraline (ZOLOFT) tab(s) 150 mg 150 mg ORAL DAILY metoprolol succinate ER 50 mg tab(s) (TOPROL XL) 50 mg ORAL DAILY potassium chloride 80-120 mEq oral liquid 80-120 mEq ORAL/FEEDING TUBE PRN potassium chloride iv piggyback 20 mEq/100 mL 20 mEq INTRAVENOUS PRN magnesium sulfate in water 2 g in sterile water 50 ml 2 g INTRAVENOUS PRN sodium glycerophosphate 45 mmol in NaCl 0.9% 250 mL (GLYCOPHOS) 45 mmol INTRAVENOUS PRN calcium gluconate 4 g in NaCl 0.9% 250 mL 4 g INTRAVENOUS PRN NaCl 0.9% 3-5 mL 3-5 mL INTRAVENOUS q 12 H NaCl 0.9% iv infusion 100 mL/hr INTRAVENOUS CONTINUOUS Chlorhexidine Gluconate 0.12 % 15 mL (PERIDEX) 15 mL ORAL QID ondansetron 4 mg tab(s) (ZOFRAN) 4 mg ORAL q 6 H PRN Or ondansetron (PF) 4 mg injection (ZOFRAN) 4 mg INTRAVENOUS q 6 H PRN magnesium hydroxide 400 mg/5 mL 30 mL (MOM) 30 mL ORAL DAILY PRN docusate sodium 100 mg cap(s) (COLACE) 100 mg ORAL BID PRN bisacodyl 10 mg suppository (DULCOLAX) 10 mg RECTAL DAILY PRN hydrALAZINE 5 mg injection (APRESOLINE) 5 mg INTRAVENOUS q 1 H PRN dextrose 40 % 15 g 15 g ORAL PRN Or glucagon 1 mg injection (GLUCAGEN) 1 mg INTRAMUSCULAR PRN Or dextrose 50% in water 25 mL syringe 12.5 g INTRAVENOUS PRN insulin lispro pen (rapid acting) (HumaLOG KWIKPEN) SUBCUTANEOUS w MEALS potassium chloride ER 40 mEq tab(s) (K-DUR, KLOR-CON) 40 mEq ORAL ONCE acetaminophen 650 mg tab(s) (TYLENOL) 650 mg ORAL q 4 H PRN oxyCODONE IR 5-10 mg tab(s) (ROXICODONE) 5-10 mg ORAL q 3 H PRN fentaNYL 50 mcg/mL 25-50 mcg injection (SUBLIMAZE) 25-50 mcg INTRAVENOUS q 1 H PRN LABS Admit labs pending. DATA: Diagnostic tests reviewed for today's visit: Outside chart from [place] reviewed. Assessment/Plan Neuro 1) Epidural Hematoma Patient with a recent history of a fall with TBI and subdural hematoma Patient c/o RODRIGUEZ and N/V with no neurologic deficits at this time PLAN: CT scan from OSH with worsening hematoma On Kera for seizure precaution For repeat CT brain now with repeat serial scan in the AM Neurosurgery consulted Restarted home HCTZ and metoprolol On labetolol and hydralazine for BP control for BP <140 Neurochecks q 1 hour 2) Headaches Likely secondary to hematoma Plan Acetaminophen and fentanyl for pain Monitor for signs of increased ICP Cardiac 1)HTN Patient with history of HTN BPs in the 110s to 130s on arrival PLAN: Restarted home HCTZ and Metoprolol BP monitoring per unit protocol SBP goal <140 On prn Hydralazine and labetalol 2) PAF Patient with history of A fib rate controlled on metoprolol. HR in in the 80s with regular rhythm on admission PLAN: Will continue home metoprolol ECG Monitor HR Pulmonary 1) Tobacco abuse Patient is a current smoker Plan: Smoking cessation education given IS Oxygen as needed ENdocrine 1) T2DM Patient with HX of T2DM HgA1c 7.0 on 10/06/2018 PLAN: Holding home hypoglycemic agents Patient on insulin per SSI GI/ 1)GERD Patient with history of GERD Denies any symptoms at this time PLAN: Restarted home protonix 2) Urinary retention and incontinence Patient with urinary dysfunction Plan: Perez catheter in place from OSH Monitor UOP strictly Attempt perez DC after 24 hours 3) Diet Bedside swallow evaluation completed successfully Patient on a DM diet Heme/Electrolytes 1) Anaemia Patient with history of anaemia On Iron supplements at home Hg at discharge was 11.8 PLAN: Holding iron at this time Will monitor CBC Psychiatry 1) Bipolar disorder Patient with history of Bipolar disorder controlle don lithium Currently not exhibiting any mood swings or manic behaviour PLAN: Restarted home lithium Will obtain lithium levels Monitor for behaviour changes 2) Depression Patient endorsing recent feelings of increased depression with SI with no plan Denies these ideation at time of admission Currently on zoloft at home PLAN: Will restart home zoloft PATIENT CHECKLIST Lines, Drains, and Airways Drain Indwelling Urinary Catheter 10/20/18 183 Admission to Hospital Perez 16 Fr less than 1 day DISPOSITION / DISCHARGE PLANNING: Consulted PT and OT and will discharge per their recommendations when patient ready Medication and Non-Pharmacologic VTE Prophylaxis/Anticoagulants 10/20/181929 vte pharmacologic prophylaxis contraindicated (nm,oh) 10/20/181929 pneumatic compression stockings (nm,tx) VTE Prophylaxis: VTE prophylaxis appropriate PERSONAL INVOLVEMENT IN CARE: Reviewing initiation, responses and adjustments to therapies, coordination of care, and updating updating family with Staff Physician, Dr. Mike. SIGNATURE: Joyce Palomino MD PATIENT NAME: Elli Guerrero DATE: October 20, 2018 TIME: 9:05 PM PAGER/CONTACT #: [phone] NSICU STAFF ADDENDUM Raul Mike MD Pt seen and examined, agree with above. CT this am stable hematoma. MRI suggests this is SDH rather than EDH. No significant findings on MRA. Pt fairly drowsy and c/o RODRIGUEZ and nausea. I suspect this is expected evolution of postconcussive syndrome and secondary TBI. Will start Pamelor for RODRIGUEZ control. SBP <140. Place BEM to assess for occult sz contributing to encephalopathy. Monitor in NSICU. PERSONAL INVOLVEMENT IN CARE: ? ?Patient/Family Updated: Patient and/or family were updated regarding the goals of care,?medical plan for the day, automotive service consultant recommendations, medical disposition and current medical condition/prognosis as and if clinically indicated. All questions and concerns were answered and addressed at this juncture. I agree with the resident MD note as above, except as otherwise indicated; my additional comments, if necessary, are in bold. ? This patient has a high probability of sudden, clinically significant deterioration, which requires the highest level of physician preparedness to intervene urgently. I managed/supervised life or organ supporting interventions that required frequent physician assessment. I devoted my full attention to the direct care of this patient for the amount of time indicated below. Time I spent with family or surrogate(s) is included only if the patient was incapable of providing the necessary information or participating in medical decision making. Time devoted to teaching and to any procedures I billed separately is not included. ? Critical Care Documentation: The patient has the following organ/system impairment(s): As above Time spent providing critical care services: 48 minutes. ? SIGNATURE: Raul Mike MD PATIENT NAME: Elli Guerrero DATE: 10/21/18 TIME: 2:30 PM PAGER/CONTACT #: [phone] HEMOGRAM/DIFF Collected: 10/20/2018 Status: F Source: [facility] 8:34 PM HEALTH SYSTEM REPOSITORY TYPE CODE TESTS RESULT OUT OF REFERENCE UNITS RANGE LAB WBC(LOINC) 3.98-10.04 thou/cmm WBC 7.70 LAB RBC(LOINC) 3.93-5.22 mil/cmm RBC 4.35 LAB HGB(LOINC) 11.2-15.7 g/dL Hgb 12.7 LAB HCT(LOINC) 34.1-44.9 % Hct 39.0 LAB MCV(LOINC) 79.4-94.8 fl MCV 89.7 LAB MCH(LOINC) 25.6-32.2 pg MCH 29.2 LAB MCHC(LOINC 31.6-34.8 % ) MCHC 32.6 LAB RDW(LOINC) 11.7-14.4 % RDW 13.8 LAB RDWSD(LOIN 36.4-46.3 fl C) RDW SD 44.7 LAB PLT(LOINC) 182-369 thou/cmm Low Platelet 132 LAB MPV(LOINC) 9.4-12.3 fl MPV 9.7 LAB SEG(LOINC) % Seg Neutrophil 67.3 LAB IGRE(LOINC % ) Immature Grans 0.40 LAB LYMPH(LOIN % C) Lymphocyte 25.2 LAB MNO(LOINC) % Monocyte 5.3 LAB EOSIN(LOIN % C) Eosinophil 1.7 LAB BASO(LOINC % ) Basophil 0.1 LAB SEGN(LOINC 1.56-6.13 thou/cmm ) Abs. Neut (ANC) 5.18 LAB IGAB(LOINC 0.00-0.05 thou/cmm ) Abs Immature Grans 0.03 LAB LYMN(LOINC 1.18-3.74 thou/cmm ) Abs. Lymph 1.94 LAB MONON(LOIN 0.27-0.70 thou/cmm C) Abs. Walsh 0.41 LAB EOSN(LOINC 0.00-0.31 thou/cmm ) Abs. Eosin 0.13 LAB BASON(LOIN 0.01-0.08 thou/cmm C) Abs. Baso 0.01 Performed By: #### CBCD1 #### [place] [address] PROTIME Collected: 10/20/2018 Status: F Source: [facility] 8:34 PM HEALTH SYSTEM REPOSITORY TYPE CODE TESTS RESULT OUT OF REFERENCE UNITS RANGE LAB PTI(LOINC) 9.7-13.0 sec Prothrombin Time 11.2 LAB INR(LOINC) 0.90-1.30 INR 1.08 Result Comment: Note: Reference Range Change Vitamin K Antagonist (VKA) Therapeutic Range: INR 2 to 3 (Target INR of 2.5) Note: For patients treated with VKA drugs, such as warfarin, the [place] [employer] 2012 Guideline recommends a therapeutic INR range of 2 to 3 (target INR of 2.5). This recommendation includes high-risk patients with antiphospholipid syndrome with previous arterial or venous thromboembolism, current-generation mechanical or bioprosthetic aortic heart valve replacement. VKA Therapeutic Range for some Mechanical Valve Replacement: INR 2.5 to 3.5 (Target INR of 3) Note: Patients with mechanical aortic valve replacement and additional risk factors for thromboembolic events (atrial fibrillation, previous thromboembolism, LV dysfunction, hypercoagulable conditions) or an older generation mechanical AVR (i.e., ball in-Cage) or any mechanical MVR should have a INR therapeutic range of 2.5 to 3.5 target INR of 3). Gildardo GH, et al. Chest 2012; 141:7S-47S Nelsy RA et al. JAC 2017; 70: 252-289 Performed By: #### PT #### [facility] [address] [place], [place] [address] ACTIVATED PTT Collected: 10/20/2018 Status: F Source: [facility] 8:34 HEALTH SYSTEM REPOSITORY TYPE CODE TESTS RESULT OUT OF REFERENCE UNITS RANGE LAB APTT(LOINC 23.0-32.4 sec ) Activated PTT 28.0 Result Comment: Note: New Reference Range Unfractionated Heparin Therapeutic Ranges: Standard Heparin Nomogram: 53 to 78 seconds (anti-Xa level of 0.3 to 0.7 U/mL) Low Dose/ACS Nomogram: 49 to 67 seconds (anti-Xa level of 0.2 to 0.5 U/mL) Stroke Treatment Nomogram: 49 to 67 seconds (anti-Xa level of 0.2 to 0.5 U/mL) Note: The APTT therapeutic range has been determined for the current lot of laboratory APTT reagent in use throughout the [facility]. Performed By: #### APTT #### [facility] [address] [place] [address] COMPREHENSIVE PANEL Collected: 10/20/2018 Status: F Source: [address] SYSTEM REPOSITORY TYPE CODE TESTS RESULT OUT OF REFERENCE UNITS RANGE LAB NA(LOINC) 136-145 mEq/L Sodium Blood 138 LAB K(LOINC) 3.5-5.1 mEq/L Potassium Blood 3.6 LAB CL(LOINC) 98-107 mEq/L Chloride Blood 106 LAB CO2(LOINC) 21-32 mEq/L CO2 Blood 21 LAB GLU(LOINC) 70-99 mg/dL Glucose High Blood 115 LAB BUN(LOINC) 7-18 mg/dL BUN Blood 9 LAB CREA(LOINC 0.51-0.95 mg/dL ) Creatinine Blood 0.54 LAB CA(LOINC) 8.5-10.1 mg/dL Calcium Blood 9.5 LAB ALB(LOINC) 3.4-5.0 g/dL Albumin Blood 3.9 LAB TP(LOINC) 6.4-8.2 g/dL Total High Protein 8.6 LAB AST(LOINC) 9-37 U/L AST-SGOT Blood 20 LAB ALT(LOINC) 12-78 U/L ALT-SGPT Blood 23 LAB ALKP(LOINC 46-116 U/L ) Alk High Phosphatase 118 LAB BILIT(LOIN 0.2-1.0 mg/dL C) Total Bilirubin 0.8 LAB ANGAP(LOIN 8-16 C) Anion Gap 15 Performed By: #### P14 #### [facility] [address] [place] [address] TROPONIN I Collected: 10/20/2018 Status: F Source: [address] [facility] REPOSITORY TYPE CODE TESTS RESULT OUT OF REFERENCE UNITS RANGE LAB TROP(LOINC) 0.015-0.045 ng/ml Troponin I < 0.015 Performed By: #### TROP #### [place] [address] MAGNESIUM BLOOD Collected: 10/20/2018 Status: F Source: [address] [facility] REPOSITORY TYPE CODE TESTS RESULT OUT OF REFERENCE UNITS RANGE LAB MAG(LOINC) 1.6-2.6 mg/dL Magnesium Blood 2.1 Performed By: #### MAG #### [place] [address] PHOSPHORUS BLOOD Collected: 10/20/2018 Status: F Source: [address] [facility] REPOSITORY TYPE CODE TESTS RESULT OUT OF REFERENCE UNITS RANGE LAB PHOS(LOINC 2.5-4.9 mg/dL ) Phosphorus Blood 3.4 Performed By: #### PHOS #### [place] [address] LIPID PROFILE Collected: 10/20/2018 Status: F Source: [address] [facility] REPOSITORY TYPE CODE TESTS RESULT OUT OF REFERENCE UNITS RANGE LAB CHOL(LOINC 0-199 mg/dL ) Cholesterol Blood 135 Result Comment: <200 Desirable 200-240 Borderline >240 High LAB TRIG(LOINC) 0-149 mg/dL Triglyceride Blood 122 Result Comment: < 200 Desirable Result invalid if not a fasting specimen. LAB HDL2(LOINC) >40 mg/dL HDL Cholesterol 47 LAB CHHDL(LOINC) 1.8-5.3 CHOL/HDL 2.9 LAB LDL(LOINC) mg/dL LDL (Calculated) 64 Result Comment: No CAD and with fewer than 2 CAD risk factors <160 mg/dL No CAD but with 2 or more CAD risk factors <130 mg/dL Definite CAD or other atherosclerotic disease <100 mg/dL LAB VLDL(LOINC) <50 Desired mg/dL VLDL Cholesterol 24 LAB LDHDL(LOINC) 0.6-3.6 LDL/HDL 1.4 Result Comment: LDL,VLDL,LDL/HDL, Invalid if Triglyceride >400 Performed By: #### LIPD2 #### [facility] [address] [place] [address] LITHIUM SERUM Collected: 10/20/2018 Status: F Source: [facility] 8:32 PM HEALTH SYSTEM REPOSITORY TYPE CODE TESTS RESULT OUT OF REFERENCE UNITS RANGE LAB LITH(LOINC) 0.6-1.2 mEq/L Low [place] Serum 0.3 Performed By: #### LITH #### [facility] [address] [place] [address] HGB A1C Collected: 10/20/2018 Status: F Source: [facility] 8:32 PM HEALTH SYSTEM REPOSITORY TYPE CODE TESTS RESULT OUT OF RANGE REFERENCE UNITS LAB A1C5(LOINC) 4.2-6.3 % High Hgb A1c 7.1 Result Comment: Method is National Glycohemoglobin Standardization Program (NGSP) compliant. LAB ESAVG(LOINC) mg/dl Est. Avg Glucose 157 Performed By: #### HA1C #### [facility] [address] [place] [address] EKG Observed: 10/20/2018 Status: F Source: [facility] 8:30 PM CLINIC OTHER CAMPUS REPOSITORY NAME : ELLI GUERRERO PID : [id number] : 1960 Gender : Female Race : ORD : Procedure Date : Oct 20 2018 20:30 Edit Date : Oct 22 2018 14:48 Diagnosis:SINUS BRADYCARDIA LEFT AXIS DEVIATION T WAVE ABNORMALITY, CONSIDER ANTEROLATERAL ISCHEMIA ABNORMAL ECG WHEN COMPARED WITH ECG OF 13-OCT-2018 18:50, INVERTED T WAVES HAVE REPLACED NONSPECIFIC T WAVE ABNORMALITY IN LATERAL LEADS Confirmed by MD Clay Sergey ([id number]) on 10/22/2018 2:48:29 PM Ventricular Rate : 54 BPM Atrial Rate : 54 BPM P-R Interval : 196 ms QRS Duration : 98 ms Q-T Interval : 450 ms QTC Calculation(Bezet) : 426 ms P Placedo : 49 degrees R Placedo : -33 degrees T Placedo : 208 degrees Test Reason : Location : 1 : [place] [address] Overread By : MD Clay Sergey Editted By : MD Clay Sergey Referred By : RAUL MIKE Acquired by : Nydia HILL Observed: 10/20/2018 Status: F Source: [facility] MRSA SCREEN 8:30 PM HEALTH SYSTEM REPOSITORY Test performed at [facility] No MRSA detected. Performed By: #### MRSA #### [facility] [address] [place] [address] CHEST 1 VIEW Observed: 10/20/2018 Status: F Source: [facility] 7:48 PM HEALTH SYSTEM REPOSITORY Performed at [facility] APPROVED BY: Darius Michael MD EXAMINATION: CHEST RADIOGRAPH (SINGLE VIEW AP OR PA) Clinical History: Acute respiratory illness M: [id number]_4 Comparison: 10/13/2018 RESULT: Lines, tubes, and devices: None. Lungs and pleura: Lung volumes are low but appear grossly clear. No confluent infiltrate, pneumothorax, or pleural effusion. Cardiomediastinal silhouette: Normal cardiomediastinal silhouette. Other: No acute bony abnormality is seen. IMPRESSION: Negative low lung volume exam PROGRESS Observed: 10/20/2018 Status: COMPLETED Source: [facility] 2:52 PM CLINIC MAIN CAMP[facility] REPOSITORY HNO ID: [id number] Author: Rosa (Andrei) ANDREI Lopez Service: (none) Author Type: Registered Nurse Type: Progress Notes Filed: 10/20/2018 2:56 PM Note Text: Ashley San from [facility] called with update Patient presently in ED in [place]. Unsure whether she will be admitted. If d /c'd from ED, [facility] will visit patient tomorrow - Rosa Lopez RN, [facility] [phone] BRAIN/HEAD WITHOUT Observed: 10/20/2018 Status: F Source: [facility] 2:27 PM [facility] REPOSITORY [facility] [address] [place] [id number] Brain/Head without Contrast MR#: [id number] Acct: [id number] Name: ELLI GUERRERO Rep #: [id number] : 1960 F 58 From: Ankur Ferrara MD PCP: Yandel Bush MD Status: REG Study: Brain/Head without Contrast Date of Exam: 10/20/18 Exam# [id number] Ordering Dr: Dylon Owens MD STUDY: CT BRAIN WITHOUT CONTRAST REASON FOR EXAM: Female, 58 years old. Headaches. Vomiting. Decreased level of consciousness. History of recent subdural hematoma. RADIATION DOSAGE (If Supplied By Facility): CTDIvol = ( 60.81 ) mGy, DLP = ( 1997.33 ) mGycm TECHNIQUE: Transaxial CT imaging of the brain was performed without administration of intravenous contrast material. Individualized dose optimization techniques were used for this CT. COMPARISON: None. FINDINGS: There is evidence of an acute epidural hematoma measuring 2.7 cm by 1.1 cm overlying the posterior left parietal occipital lobe. There is also evidence of a small amount of subarachnoid bleed in the right sylvian fissure. Also evidence of a tentorial subdural hematoma. Normal soft tissue structures. There is hyperostosis frontalis internus. There is evidence of a decreased sulcal markings suggests a possible increased intracranial pressure. Normal white matter tracts of the cerebral hemispheres. Decreased attenuation in the left basal ganglion. Ischemic changes should be ruled out. Normal brainstem. Normal cerebellum. Normal visualized paranasal sinuses. CT/Brain/Head without Contrast IMPRESSION: There is evidence of an acute epidural hematoma overlying the left posterior parietal occipital lobes measuring 1.1 cm x 2.7 cm. There is evidence of a subdural of the tentorium as well as subarachnoid hemorrhage. Decreased attenuation is seen in the left basal ganglion. Changes should BE ruled out. Findings suggestive of increased intracranial pressure. N.B. : The above information has been verbally conveyed by Ankur Ferrara MD to Dylon Owens MD, on 10/20/2018 15:14:10 (ET). Electronically Signed: Ankur Ferrara MD at 15:15 EST Tel [phone], Service support , CC: Dylon Owens MD; Yandel Bush MD Cycle Touring Guide: Signed CBC W/DIFF, AUTOMATED Collected: 10/20/2018 Status: F Source: SHARI 1:55 PM [facility] REPOSITORY TYPE CODE TESTS RESULT OUT OF RANGE REFERENCE UNITS LAB L100.1000 4.4-11.0 K/mm3 Normal WBC 7.8 LAB L100.1200 4.2-5.4 M/mm3 Normal RBC 4.47 LAB L100.1300 12.0-15.0 g/dl Normal HGB 13.1 LAB L100.1400 37-47 % Normal HCT 39.5 LAB L100.1500 81-99 fL Normal MCV 88.4 LAB L100.1600 27.0-32.0 pg Normal MCH 29.3 LAB L100.1700 32-36 g/gl Normal MCHC 33.2 LAB L100.1810 11.6-14.6 % Normal RDW CV 13.9 LAB L100.1820 35.1-43.9 fl High RDW SD 44.5 LAB L100.1900 150-450 K/mm3 Low PLT 131 LAB L100.2000 6.2-12.0 fl Normal MPV 9.9 LAB L100.2100 47-70 % High NEUT% 75.3 LAB L100.2200 19-41 % Low LY% 18.2 LAB L100.2300 0-10 % Normal MONO% 5.1 LAB L100.2400 0-5 % Normal EO% 1.3 LAB L100.2500 0-1 % Normal BASO% 0.0 LAB L100.2550 0.0-0.9 % Normal IM GRAN % 0.100 Result Comment: IG% - Immature Granulocytes (promyelocytes, myelocytes and metamyelocytes) > 1% indicates that a LEFT SHIFT is Present. LAB L100.2620 2.0-7.7 X10 3/uL Normal Absolute Neut 5.9 LAB L100.2720 0.83-4.51 X10 3/ul Normal Absolute Lymph 1.42 Performed By: #### L100.0100 #### [facility] [address] [place], [address] BASIC METABOLIC Collected: 10/20/2018 Status: F Source: SHARI PROFILE (BMP) 1:55 PM [facility] REPOSITORY TYPE CODE TESTS RESULT OUT OF RANGE REFERENCE UNITS LAB L501.0100 74-106 mg/dL High GLU 143 Result Comment: Fasting Glucose result greater than or equal to 126 mg/dL suggests DIABETES MELLITUS per A.D.A. criteria. Please note revised GLUCOSE reference range effective 2017. LAB L501.1000 7-18 mg/dL Normal BUN 10 LAB L501.1100 0.55-1.02 mg/dL Normal CREAT,SERUM 0.60 Result Comment: The validity of the calculated GFR AND GFRAA in patients over 70 years has not been determined. Clinical correlation is essential. LAB L501.1110 >60 mL/min Normal EST GFR 110 Result Comment: Non- GFR Calc LAB L501.1115 >60 mL/min Normal EST GFR - AA 133 Result Comment: GFR Calc LAB L501.1255 ml/min Normal Estimated CRCL 90.84 LAB L501.1300 10-20 RATIO Normal BUN/CRE 16.8 LAB L501.2200 8.5-10 mg/dL Normal .1 CA 9.8 LAB L501.5300 136-14 mmol/L Normal 5 NA 139 LAB L501.5600 3.5-5. mmol/L Normal 1 K 3.8 LAB L501.5900 98-107 mmol/L Normal CL 107 LAB L501.6100 21.0-3 mmol/L Normal 2.0 CO2 24.0 LAB L501.6200 5-15 Normal GAP 8 Performed By: #### L500.2500 #### [facility] [address] [place], [address] PROTHROMBIN TIME W/INR Collected: 10/20/2018 Status: F Source: SHARI 1:55 PM [facility] REPOSITORY TYPE CODE TESTS RESULT OUT OF RANGE REFERENCE UNITS LAB L300.4150 11.7-14.9 SECONDS Normal PROTIME 14.0 LAB L300.4200 Normal INR 1.1 Performed By: #### L300.3900, L300.4310 #### [facility] [address] [place], [address] PARTIAL THROMBOPLAST Collected: 10/20/2018 Status: F Source: [place] TIME 1:55 PM [facility] REPOSITORY TYPE CODE TESTS RESULT OUT OF RANGE REFERENCE UNITS LAB L300.4310 24.1-36.2 Seconds Normal PTT 34.3 Performed By: #### L300.3900, L300.4310 #### [facility] [address] [place], [address] PROGRESS Observed: 10/20/2018 Status: COMPLETED Source: HARGILL 12:37 PM [facility] REPOSITORY HNO ID: [id number] Author: Rosa (Rn) John RN Service: (none) Author Type: Registered Nurse Type: Progress Notes Filed: 10/20/2018 12:42 PM Note Text: During previous discussion dtr reported that she had not heard back regarding SOC. Called and spoke with Nita from [facility] [phone] Sent requested documents via CampuSceneIN States they will f/u as indicated pending disposition of patient after ED PROGRESS Observed: 10/20/2018 Status: COMPLETED Source: HARGILL 11:09 AM [facility] REPOSITORY HNO ID: [id number] Author: Rosa (Rn) John, RN Service: (none) Author Type: Registered Nurse Type: Progress Notes Filed: 10/20/2018 11:53 AM Note Text: TRANSITION CARE MANAGEMENT (TCM) INITIAL CONTACT Provider FYI: Hospital d/c 10/17 SDH, TBI Advised ED d/t persistent vomiting, severe RODRIGUEZ, worsening of mental status. See Concerns for further details Initial contact with patient post discharge, spoke to daughter, Joanne Patient identified by name and . TRANSITION CARE MANAGEMENT: Date of Outreach: 10/20/2018 Outreach Attempt 1: Contact Made Date of Discharge 10/17/2018 Some recent data might be hidden SUMMARY: -Pt discharged from [facility] on 10/17 -Follow up appointment on- advised ER -Medication review done- new meds only -Admitted for: Fall SDH, ICH CONCERNS: Spoke with dtrJoanne. Reports patient was better when she got home on10/17, but vomited 3 times yesterday and developed a severe RODRIGUEZ- as bad as when first admitted. Took her to [facility] ED yesterday. Reportedly CT scan negative for change. Sent her home with Zofran. Reports she is not any better since yesterday ED visit. Vomited x1 this AM. Unable to keep anything down. Just picking up Zofran now. Continues to have severe RODRIGUEZ and is out of it. Unable to keep Tylenol. put patient on the phone and the only response to my questions was Hi Dtr reports patient knows her name and where she, is but not the date Reports her mental status is worse since d/c from [facility] on 10/17 not worse since ED visit yesterday. Up walking to with walker. Advised ED d/t continued vomiting, severe RODRIGUEZ, change in mental status Dtr reluctant to take back to [facility]. Advised to take to [facility] now. Dtr agreed- plans to take by car. Encouraged to call 911 immediately if any worsening of SX. Agreed. NEW MEDICATIONS: levETIRAcetam 1,000 mg tablet Commonly known as: KEPPRA Take 1 tablet by mouth twice daily for 1 day. Last time this MEDS HELD/DISCONTINUED: none BRIEF HOSPITAL COURSE: The following content has been copied and pasted from patient's progress note. ASSESSMENT AND PLAN: ? Active Hospital Problems ? Diagnosis Date Noted - SDH (subdural hematoma) ([facility]) 10/14/2018 - Midline shift of brain due to hematoma 10/14/2018 - Fall 10/14/2018 - TBI (traumatic brain injury) ([facility]) 10/14/2018 - ICH (intracerebral hemorrhage) ([facility]) 10/13/2018 - Type 2 diabetes mellitus without complication ([facility]) 01/08/2012 ? ? 58 year old female s/p GLF with L SDH with R shift ? Imaging performed: 1. XR Pelvis (10/13/18): right superior pubic ramus lucency, likely bowel gas 2. XR Chest (10/13/18): low lung volumes 3. CT Brain (10/13/18): L SDH no significant shift unchanged from previous image, minimal increase of SDH in posterior fissure 4. CT Brain (10/14/18): no change in L SDH, no change of SDH in posterior fissure, small R cerebral convexity extra axial hemorrhage 3mm - also unchanged ? Traumatic Inuries: 1. SDH, midline shift ? Care Plan: 1. Transfer to floor 2. Current diet order: DIET FOOD CONSISTENCY CONTROLLED 3. Pain orders: 4. Bowel regimen: 5. NSurg: f/u with Dr. Schmidt in 4-6 weeks, ketheo 6. PT pending ? Consulted Services and recs: 1. Neurosurgery 2. Physical Therapy ? Dispo Plannin. TBD ? PPX: 1. DVT: SCDs, no LVX at this time 2. Ulcer: PPI 3. Vit D level if > 65 yo: 497 4. ARC monitoring indicated? ? Incidentals: 1. None ? Follow Up Needs: 1. NSx in 4-6 weeks ? ? Assessment and plan discussed with attending: Dr Omer ? SIGNATURE: Rand Chen MD PATIENT NAME: Elli Guerrero DATE: October 17, 2018 TIME: 9:30 AM Pager: below ? ? -- Rosa Lopez RN, [facility] [phone] [facility] Observed: 10/20/2018 Status: COMPLETED Source: HARGILL 12:00 AM [facility] REPOSITORY Patient Outreach (FAMPWS) CESARELLI Vargas ([id number]) 1960 F Date Time Provider Department 10/20/18 ROSA LOPEZ (ANDREI) PAULA During your visit today, we recorded the following information about you: Rosa Lopez RN, RN 10/20/2018 11:53 AM Signed TRANSITION CARE MANAGEMENT (TCM) INITIAL CONTACT Provider FYI: Hospital d/c 10/17 SDH, TBI Advised ED d/t persistent vomiting, severe RODRIGUEZ, worsening of mental status. See Concerns for further details Initial contact with patient post discharge, spoke to daughter, Joanne Patient identified by name and . TRANSITION CARE MANAGEMENT: Date of Outreach: 10/20/2018 Outreach Attempt 1: Contact Made Date of Discharge 10/17/2018 Some recent data might be hidden SUMMARY: -Pt discharged from [facility] on 10/17 -Follow up appointment on- advised ER -Medication review done- new meds only -Admitted for: Fall SDH, ICH CONCERNS: Spoke with dtr, Joanne. Reports patient was better when she got home on10/17, but vomited 3 times yesterday and developed a severe RODRIGUEZ- as bad as when first admitted. Took her to [facility] ED yesterday. Reportedly CT scan negative for change. Sent her home with Zofran. Reports she is not any better since yesterday ED visit. Vomited x1 this AM. Unable to keep anything down. Just picking up Zofran now. Continues to have severe RODRIGUEZ and is out of it. Unable to keep Tylenol. put patient on the phone and the only response to my questions was Hi Dtr reports patient knows her name and where she, is but not the date Reports her mental status is worse since d/c from [facility] on 10/17 not worse since ED visit yesterday. Up walking to with walker. Advised ED d/t continued vomiting, severe RODRIGUEZ, change in mental status Dtr reluctant to take back to [facility]. Advised to take to [facility] now. Dtr agreed- plans to take by car. Encouraged to call 911 immediately if any worsening of SX. Agreed. NEW MEDICATIONS: levETIRAcetam 1,000 mg tablet Commonly known as: KEPPRA Take 1 tablet by mouth twice daily for 1 day. Last time this MEDS HELD/DISCONTINUED: none BRIEF HOSPITAL COURSE: The following content has been copied and pasted from patient's progress note. ASSESSMENT AND PLAN: ? Active Hospital Problems ? Diagnosis Date Noted - SDH (subdural hematoma) ([facility]) 10/14/2018 - Midline shift of brain due to hematoma 10/14/2018 - Fall 10/14/2018 - TBI (traumatic brain injury) ([facility]) 10/14/2018 - ICH (intracerebral hemorrhage) ([facility]) 10/13/2018 - Type 2 diabetes mellitus without complication ([facility]) 01/08/2012 ? ? 58 year old female s/p GLF with L SDH with R shift ? Imaging performed: 1. XR Pelvis (10/13/18): right superior pubic ramus lucency, likely bowel gas 2. XR Chest (10/13/18): low lung volumes 3. CT Brain (10/13/18): L SDH no significant shift unchanged from previous image, minimal increase of SDH in posterior fissure 4. CT Brain (10/14/18): no change in L SDH, no change of SDH in posterior fissure, small R cerebral convexity extra axial hemorrhage 3mm - also unchanged ? Traumatic Inuries: 1. SDH, midline shift ? Care Plan: 1. Transfer to floor 2. Current diet order: DIET FOOD CONSISTENCY CONTROLLED 3. Pain orders: 4. Bowel regimen: 5. NSurg: f/u with Dr. Schmidt in 4-6 weeks, efrem 6. PT pending ? Consulted Services and recs: 1. Neurosurgery 2. Physical Therapy ? Dispo Plannin. TBD ? PPX: 1. DVT: SCDs, no LVX at this time 2. Ulcer: PPI 3. Vit D level if > 65 yo: 497 4. ARC monitoring indicated? ? Incidentals: 1. None ? Follow Up Needs: 1. NSx in 4-6 weeks ? ? Assessment and plan discussed with attending: Dr Omer ? SIGNATURE: Rand Chen MD PATIENT NAME: Elli Guerrero DATE: October 17, 2018 TIME: 9:30 AM Pager: below ? ? Rosa Lopez RN, [facility] [phone] Rosa Lopez RN, RN 10/20/2018 12:42 PM Signed During previous discussion dtr reported that she had not heard back regarding SOC. Called and spoke with Nita from [facility] [phone] Sent requested documents via Campu[employer]IN States they will f/u as indicated pending disposition of patient after ED Rosa Lopez RN, RN 10/20/2018 2:56 PM Signed Ashley San from [facility] called with update Patient presently in ED in [place]. Unsure whether she will be admitted. If d /c'd from ED, SN will visit patient tomorrow Rosa Lopez RN, [facility] [phone] Allergies As of Date: 10/20/2018 (No Known Allergies) Date Reviewed: 10/16/2018 Reviewed by: Miguelina (Rn) ANDREI Ronquillo - Fully Assessed Reason for Visit: Transition Of Care [4074] Cmt: hospital d/c 10/17 TBI, ICH, SDH Prescriptions as of 10/20/2018 Sig: LEVETIRACETAM 1,000 MG TABLET Take 1 tablet by mouth twice * HYDROCHLOROTHIAZIDE 12.5 MG C* Take 12.5 mg by mouth once da* APREMILAST 30 MG TABLET Take 30 mg by mouth once lisa* FERROUS GLUCONATE 324 MG (38 * TAKE ONE TABLET BY MOUTH TWIC* PANTOPRAZOLE 40 MG TABLET,DEL* TAKE ONE TABLET BY MOUTH ONCE* METFORMIN 500 MG TABLET Take 2 tablets by mouth twice* GLIMEPIRIDE 4 MG TABLET Take 1 tablet by mouth daily * FARXIGA 10 MG TABLET TAKE ONE TABLET BY MOUTH DAILY METOPROLOL SUCCINATE ER 50 MG* Take 1 tablet by mouth once d* HYDROXYCHLOROQUINE 200 MG TAB* Take 200 mg by mouth twice da* NITROGLYCERIN 0.4 MG SUBLINGU* Dissolve 1 tablet under the t* LITHIUM CARBONATE ER 450 MG T* Take 2 tablets by mouth twice* Patient taking differently: Take 450 mg by mouth twice da* SERTRALINE 100 MG TABLET Take 150 mg by mouth once pricila* Problem List As Of Date 10/20/2018 Noted Resolved Type 2 diabetes mellitus without complication (*INVALID FOR* Hypertension [I10] INVALID FOR* Bipolar affective disorder [F31.9] INVALID FOR* More... Morbid obesity [E66.01] INVALID FOR* Fatty liver [K76.0] INVALID FOR* More... Paroxysmal atrial fibrillation [I48.0] INVALID FOR* History of colonic polyps [Z86.010] INVALID FOR* Obstructive sleep apnea (adult) (pediatric) [G4*INVALID FOR* More... GERD (gastroesophageal reflux disease) [K21.9] INVALID FOR* More... Urge incontinence [N39.41] INVALID FOR* Positive MATY (antinuclear antibody) [R76.8] INVALID FOR* More... p [M32.9] INVALID FOR*04/03/2018 More... Iron deficiency anemia [D50.9] INVALID FOR* Anemia [D64.9] INVALID FOR* Obesity, Class III, BMI >= 40 [E66.01] INVALID FOR* ICH (intracerebral hemorrhage) (HCC) [I61.9] INVALID FOR* SDH (subdural hematoma) (HCC) [S06.5X9A] INVALID FOR* Midline shift of brain due to hematoma [G93.9] INVALID FOR* Fall [W19.XXXA] INVALID FOR* TBI (traumatic brain injury) (HCC) [S06.9X9A] INVALID FOR* Encounter Status:Closed by ROSA LOPEZ on 10/20/18 CT BRAIN W/O CONTRAST Observed: 10/19/2018 Status: F [facility] [place] [id number] Patient: ELLI GUERRERO Phone#: : [phone] Age: 58 Gender: F Pt. Type: ER Account: [id number] Location: [facility] Ordering: JOHN FANG Exam Date: 10/19/2018/23:34 Family Phys: YANDEL BUSH Charge Code: [id number] Physician: Creek Order #: [id number] DLP Dose#: [id number] PROCEDURE: CT BRAIN WITHOUT CONTRAST COMPARISON: [facility], CT, BRAIN W/O CON, 10/13/2018, 15:20. INDICATIONS: Headache TECHNIQUE: CT images were obtained without contrast material. All CT scans at this facility use dose modulation, iterative reconstruction, and/or weight based dosing when appropriate to reduce radiation dose to as low as reasonably achievable. IV CONTRAST: No IV contrast used,0ml TOTAL DOSE: 57.50 CTDIvol(mGy) FINDINGS: CEREBRUM: The known left epidural hematoma along the temporoparietal scalp is not significantly changed in size measuring 3.2 x 3.6 x 1.3 cm, previously 3.0 x 3.8 x 1.4 cm. The blood products demonstrate heterogeneous attenuation, consistent with expected with interval evolution of blood products. There is local mass effect on the adjacent sulci. There is persistent right less conspicuous hemorrhage along the left tentorium, consistent with subarachnoid component. The high adjacent to the falx is consistent with small posterior subarachnoid hemorrhage adjacent to the falx, not present previously. No midline shift. No edema, acute infarction, or inappropriate atrophy. CEREBELLUM: No edema, hemorrhage, mass, or inappropriate atrophy. Low lying cerebellar tonsils, similar to prior. BRAINSTEM: No edema, hemorrhage, mass, or inappropriate atrophy. CSF SPACES: There is mild left posterior horn effacement, decreased from prior. There is mild effacement of the suprasellar cistern, stable. No hydrocephalus or mass. SKULL: There is hyperostosis frontalis interna, a benign age related finding. SINUSES: There is mucosal thickening and secretions in the left sphenoid sinus, similar to prior. ORBITS: Limited views are unremarkable. OTHER: Negative. Continued Report - Page 2 of 2 Patient: ELLI GUERRERO Phone#: : 1960 Age: 58 Gender: F Pt. Type: ER Account: [id number] Location: 052 Ordering: JOHN FANG Exam Date: 10/19/2018/23:34 Family Phys: YANDEL BUSH Charge Code: [id number] Physician: Creek Order #: [id number] DLP Dose#: [id number] CONCLUSION: 1. Left temporoparietal epidural hematoma, not significantly changed in size from prior. 2. Small subarachnoid adjacent to the posterior falx. This may represent redistribution of previously identified hemorrhage versus new hemorrhage. No significant mass effect. 3. Persistent small hemorrhage along the left tentorium, less conspicuous compared to prior. Dictated by: Lupe Azevedo MD on 10/20/2018 at 9:57 Approved by: Lupe Azevedo MD on 10/20/2018 at 10:14 EMERGENCY REPORT Observed: 10/19/2018 Status: F [facility] EM[facility]GENCY ROOM REPORT NAME ACCOUNT SEX AGE ADMIT DISCHARGE PT MED. RECORD# NUMBER DATE DATE TYPE CESAR [id number] F 58 10/19/18 10/20/18 3 ELLI Vargas [id number] ROOM: ER DATE OF : 1960 DICTATING PHYSICIAN: John Fang HISTORY OF PRESENT ILLNESS: This is a 58-year-old female with a recent history of traumatic intracranial hemorrhage who presents with concern for nausea and vomiting. She states that she was discharged from [facility] yesterday after being admitted for traumatic intracranial hemorrhage. She states that she was seen here at this emergency department after a fall and was diagnosed with an epidural hematoma. She states that she went to [facility] and received multiple CT scans for which the neurosurgeon felt were stable and the patient did not require surgery. The patient states that she had a headache throughout her time there and she continues to have this headache. She states that it is not any worse. She states that she did have nausea as well as one episode of vomiting today. She states that it is nonbloody and nonbilious. She denies any fever, chills, chest pain, shortness of breath, or diaphoresis. The patient has no medication at home for the nausea or vomiting. PAST MEDICAL HISTORY: Intracranial hemorrhage. PAST SURGICAL HISTORY: None. SOCIAL HISTORY: Denies any drugs, alcohol or tobacco abuse. REVIEW OF SYSTEMS: Ten systems reviewed and negative except as mentioned above. PHYSICAL EXAMINATION: The patient appears well and nontoxic. Vital Signs: Within normal limits upon arrival. Head is normocephalic without signs of trauma. Eyes: PERRLA. Nose: Septum midline without evidence of hematoma. Mouth: Mucosa is without evidence of dehydration. No pharyngeal erythema. Neck: Supple. Trachea midline. No cervical lymphadenopathy. No midline tenderness to palpation of the cervical spine. Lungs: Clear to auscultation bilaterally without wheezing or rhonchi. Heart: S1 and S2 appreciated without murmurs. Abdomen: Soft, nontender. No hepatosplenomegaly. Musculoskeletal:+5/5 muscle strength in the upper and lower extremities. Neurologic: Alert and oriented x3. No focal neurologic deficit. Cranial nerves II-XII intact. No sensory loss. Skin: No evidence of cellulitis or open wounds. Psychiatric: Mood and affect normal. Page 1 of 2 ELLI GUERRERO Emergency Room Report DIAGNOSTIC DATA: CT of the brain without contrast is repeated which shows no evidence of worsening in the previously diagnosed epidural and subdural bleeding. This was confirmed with radiologist relations liaison with comparison of previous imaging. EMERGENCY DEPARTMENT COURSE AND TREATMENT: The patient appears well and nontoxic. Her vital signs are within normal limits. She is not actively vomiting. She has no focal or neurologic deficit. Pupils are equal and reactive. CT shows evidence of epidural and subdural bleeding which are unchanged from previously. I personally discussed this with the radiologist relations liaison who compared this to previous CT imaging. The patient was given 4 mg IV Zofran. She states that this did resolve her nausea. DIAGNOSIS: PLAN/DISPOSITION: She states that she mainly presented because she was concerned and did not know what type of course she was supposed to have following this bleeding. I also spoke with the patient's daughter who states that they are to follow up with their primary care provider as well as make an appointment for physical therapy. The patient will be given a prescription for Zofran and asked to follow up. She is asked to return for any new or worsening symptoms. The patient and daughter were both agreeable with this plan and she was discharged home in stable condition. Dictated By: John Fang DO 10/20/18 02:17 JOB #: [id number] Transcribed By: [email or web address] 10/20/18 05:11 Electronically signed by: E-SIGN: John Fang D.O. 10/21/18 01:51 Page 2 of 2 ELLI GUERRERO Emergency Room Report CNDS Observed: 10/17/2018 Status: COMPLETED Source: [place]ARGILL 4:18 PM [facility] OTHER [facility]AMP[facility] REPOSITORY HNO ID: [id number] Author: Jorge Estrada Service: General Surgery Author Type: Resident Type: Discharge Summaries Filed: 11/07/2018 4:46 PM Note Text: DISCHARGE SUMMARY PATIENT NAME: Elli Guerrero Code Status: Not on file Highest Readmission Risk Score: 27 The 30 day readmissions risk score is derived from an internally validated risk model which evaluates patient level characteristics, utilization history, medication orders and lab results up until the day of discharge. Patients with a score of 40 or above are considered highest risk for readmission. Specific patient level drivers will be listed at the bottom of the summary. Admission Information Admission Information ADMIT DATE: 10/13/2018 DISCHARGE DATE: 3:01 PM 10/17/18 MY DOCTORS AND MEDICAL TEAM: My Main Hospital Doctor: Milagro Fan Primary Care Provider: Yandel Bush MD My Medical Team Members: Treatment Team: Attending Provider: Milagro Fan Consulting: Melissa Schmidt MY CONDITION AT DISCHARGE: Stable REASON I WAS IN THE HOSPITAL: Subdural hematoma SUMMARY OF WHAT HAPPENED WHILE I WAS IN THE HOSPITAL: CT scans, neurochecks, pain control, PT/OT OTHER PROBLEMS/DIAGNOSIS: Active Problems: Type 2 diabetes mellitus without complication (HCC) ICH (intracerebral hemorrhage) (HCC) SDH (subdural hematoma) (HCC) Midline shift of brain due to hematoma Fall TBI (traumatic brain injury) (HCC) Resolved Problems: * No resolved hospital problems. * OPERATIONS PERFORMED WHILE IN THE HOSPITAL: None IMPORTANT TEST/PROCEDURES: None Discharge Disposition Discharge Disposition: Home With Home Care Activity When You Leave the Hospital Resume pre-hospital activity Progressive mobility with home PT/OT Diet Instructions Resume your pre-hospital diet For Pain When You Leave the Hospital Use acetaminophen (Tylenol) as recommended on the bottle Call Your Doctor If You have a severe headache You have lightheadedness, fainting, or confusion You have persistent nausea/vomiting over 24 hours Follow Up Appointments Follow-Up Appointment Patient to call Dr. Schmidt's office for follow up in 4-6 weeks. Sooner if necessary. When: In 4 weeks Comment - 4-6 weeks Melissa Schmidt [phone] [address] [facility] [id number] PCP Requested Referral Additional Provider to Provider Information: Active Problems: Type 2 diabetes mellitus (HCC) ICH (intracerebral hemorrhage) (HCC) SDH (subdural hematoma) (HCC) Midline shift of brain due to hematoma Fall TBI (traumatic brain injury) (HCC) Resolved Problems: * No resolved hospital problems. * Transitions of Care Critical Issues: Patient was hemodynamically stable Discharge Antibiotics: None Transfers: None DVT Prophylaxis: SCDs Pain Control: Intravenous pain medication and Oral narcotics Complications: Continued throughout the hospital course without complications. LABS AND PROCEDURES PENDING AT DISCHARGE: No pending results. Relevant labs included: Recent Labs 10/17/18 0603 HB 11.8 HCT 36.0 CBC, Coags, BMP, Mg, Phos Recent Labs 10/26/18 0251 10/25/18 0340 10/24/18 0432 WBC 6.20 8.89 8.35 HB 11.6 12.4 14.2 HCT 34.9 37.8 43.2 PLT 118* 129* 123* NA 137 137 137 K 3.3* 3.4* 3.5 CHLOR 106 103 102 CO2 23 26 27 BUN 10 11 11 CREAT 0.45* 0.43* 0.46* GLUC 127* 145* 136* CA 9.4 9.4 10.4* MG 2.2 2.1 2.4 P 3.2 4.0 3.6 CSF AND Dilantin Liver Function, Amylase, AND Lipase Recent Labs 10/26/18 02510/25/18 0340 10/24/18 0432 TPROT 7.4 7.9 8.6* ALB 3.3* 3.6 4.0 ALT 22 25 25 AST 21 25 27 ALKPHOS 111 119* 128* TBILI 0.6 0.8 1.0 Cardiac Enzymes ABGs ALLERGIES No Known Allergies Discharge Medications: Discharge Medication List as of 10/17/2018 3:23 PM CONTINUE these medications which have CHANGED levETIRAcetam (KEPPRA) 1,000 mg tablet Take 1 tablet by mouth twice daily for 1 day. Print RX, Disp-2 tablet, R-0, Long-term CONTINUE these medications which have NOT CHANGED Hydrochlorothiazide 12.5 mg capsule Take 12.5 mg by mouth once daily. Historical Med Ferrous Gluconate (FERGON) 324 mg (38 mg iron) tablet TAKE ONE TABLET BY MOUTH TWICE DAILY WITH MEALS Normal, Disp-60 tablet, R-1, Long-term This prescription was filled on 08/19/2018. Any refills authorized will be placed on file. Dx: 1. Iron deficiency anemia, unspecified iron deficiency anemia type pantoprazole DR (PROTONIX) 40 mg tablet TAKE ONE TABLET BY MOUTH ONCE DAILY Normal, Disp-90 tablet, R-1, Long-term This prescription was filled on 08/19/2018. Any refills authorized will be placed on file. Dx: 1. Gastroesophageal reflux disease, esophagitis presence not specified metFORMIN (GLUCOPHAGE) 500 mg tablet Take 2 tablets by mouth twice daily with meals. Normal, Disp-360 tablet, R-1, Long-term glimepiride (AMARYL) 4 mg tablet Take 1 tablet by mouth daily with breakfast. Normal, Disp-90 tablet, R-1, Long-term metoprolol succinate ER (TOPROL XL) 50 mg 24 hr tablet Take 1 tablet by mouth once daily. Normal, Disp-90 tablet, R-3, Long-term Dx: 1. Paroxysmal atrial fibrillation (HCC) hydroxychloroquine (PLAQUENIL) 200 mg tablet Take 200 mg by mouth twice daily. Historical Med nitroglycerin sublingual (NITROQUICK) 0.4 mg SL tablet Dissolve 1 tablet under the tongue as needed. FOR CHEST PAIN. IF NO RELIEF CALL 911 Normal, Disp-25 tablet, R-3 Dx: 1. Atypical chest pain lithium carbonate ER 450 mg CR tablet Take 2 tablets by mouth twice daily. Med Update, R-0 Dx: 1. Bipolar affective disorder, remission status unspecified (HCC) sertraline (ZOLOFT) 100 mg tablet Take 150 mg by mouth once daily. Historical Med, R-0 apremilast (OTEZLA) 30 mg tablet Take 30 mg by mouth once daily. Historical Med, Long-term FARXIGA 10 mg tab TAKE ONE TABLET BY MOUTH DAILY Normal, Disp-30 tablet, R-5, Long-term This prescription was filled on 06/19/2018. Any refills authorized will be placed on file. FOLLOW-UP APPOINTMENTS ALREADY SCHEDULED WITH A [facility] PROVIDER Future Appointments Date Time Provider Department Center 04/10/2019 9:30 AM Holden ROQUE [facility] The patient's risk for 30-day readmission is determined using the following contributing factors: Pt variables contributing to increased readmission risk: 12 Most Recent BUN Result 9.8 First Resulted Calcium During Admission 1 Previous ED Visit (6 mos.)? 1 Number of Previous ED Visits (6 mos.) 1 Insurance - Medicare 1 Discharge Disposition - Home 1 History of Anemia SICU Service Pager: For questions or concerns Mon-Fri 6a-5p please page [phone]. After 5pm and on Weekends and Holidays, please page [phone]. SIGNATURE: Jorge Estrada MD PAGER/CONTACT #: DATE: October 18, 2018 TIME: 4:26 AM CASE MANAGEM Observed: 10/17/2018 Status: COMPLETED Source: [place] 3:01 PM [facility] REPOSITORY HNO ID: [id number] Author: Margie HenriquezRn) ANDREI Rodriges Service: Care Management Author Type: Registered Nurse Type: Care Mgt Progress Note Filed: 10/17/2018 3:03 PM Note Text: CARE MANAGEMENT PROGRESS NOTE SERVICE DATE: 10/17/2018 SERVICE TIME: 3:01 PM LOS: 4 days FREEDOM OF CHOICE GIVEN: Yes explaind to patient and dtr at bedside Provider List: Home Care Preference: [facility] care Met with patient and dtr at bedside, explained therapy recommendations of home pt/ot- hhc agency list given. Patient and dtr chose [facility], referral placed. Await [facility] agency response and continue to follow. SIGNATURE: Margie Rodriges RN PATIENT NAME: Elli Guerrero DATE: October 17, 2018 TIME: 3:01 PM PAGER/CONTACT #: [phone] THERAPY NT Observed: 10/17/2018 Status: COMPLETED Source: [place] 2:02 PM [facility] REPOSITORY HNO ID: [id number] Author: Juany HenriquezOtr/Lanre Ceja Service: Occupational Therapy Author Type: Occupational Therapist Type: Therapy (PT/OT/Speech/Resp) Filed: 10/17/2018 2:58 PM Note Text: Occupational Therapy Evaluation SERVICE DATE: 10/17/2018 SERVICE TIME: 1325 to 1350 ROOM: [id number] Recommended Discharge Disposition: Outpatient Occupational Therapy Recommended Discharge Disposition Comments: Once pain and diziness is controlled, pt should be able to return home with family assistance. Pt would benefit from outpatient to increase her independence, strength, and cognition. Anticipated Discharge Needs: Physical Assist at Home;Supervision at Home Physical Assist at Home for: Transportation;Shopping;Safety;Self Care;Medication Management;Meals;Cleaning;Laundry;Transfers;Finances Supervision at Home due to: Decreased safety awareness OT Recommendations to Nursing: To Bathroom for ADL?s /and or Toileting;OOB for meals;With assist of 1 person OT 6 Clicks Score: 20 Precautions/Activity Restrictions: Fall Risk ASSESSMENT: OT Evaluation Low Complexity: Occupational Profile - Brief review of patient's medical record completed (please see current hospital course of evaluation). Occupational Performance - Pt presents with deficits in feeding, grooming, UE bathing/dressing, LE bathing/dressing, functional transfers, functional mobility, decreased safety awareness, decreased insight into deficits Complexity in Clinical Decision Making - The extent of clinical reasoning was low, number of treatment options limited, no need for modifications during the evaluation process, no comorbidities present to affect patient's occupational performance. Patient Disposition at Start of Session: OOB in Chair;Call Guido in Reach;Family Present Patient Disposition at End of Session: OOB in Chair;Call Guido in Reach Tolerance Limited By Pain;Physiologic Response Occupational Therapy Problem List: Education Deficit;Cognitive Deficit;Safety Deficits;Impaired Self Care;Decreased Activity Tolerance;Decreased Strength;Functional Mobility Impairment Patient /Caregiver Goals: Go Home Goals for Plan of Care: Able to perform HEP with: Verbal Cues Only (BUE strengthening program) Grooming with: Supervision Chair Transfer with: Supervision Toilet Transfer with: Supervision Tolerate (minutes of functional activity): 30 Functional Activity with: Supervision Additional Goal 1: Pt will demonstrate increased short term memory capabilities when completing ADLs by identifying external and internal memory strategies to use with minimal cuing Demonstrate Competence With Education with: Verbal Cues Only (Increased safety and alertness with ADLs) Transfer: Pt will complete car transfer with supervision Increased Awareness of Cognitive Impairments as Related to ADL's/IADL's: Demonstrated Rehab Potential: Good PLAN: Treatment Frequency (times per week): 5 (1-5 x a week) Current admission Treatment Interventions: Education;Self Care / Home Management;Strengthening;Functional Mobility Training;Cognitive Training Plan of Care developed with: Patient TREATMENT INTERVENTIONS: Therapy Diagnosis: Reduced mobility-other;Decreased activities of daily living (ADL);Muscle Weakness (generalized);Signs and Symptoms Involving Cognitive Functions and Awareness Interventions Provided: Evaluation;Cognitive Training (36611 or G0515) $ Evaluation-Low (82426) Billed Units: 1 unit Cognitive Training (G0515) Treatment Minutes (2018 Only): 10 $ Cognitive Training (G0515) Billed Units (2018 Only): 1 unit Skilled Intervention(s): Facilitated completion of the [place] Cognitive Assessment (MOCA), which is a rapid screening instrument for mild cognitive dysfunction. From the results (a score of 17/30), pt demo's max deficits in visuospatial / executive functioning, max deficits in memory, mod deficits in attention and concentration, mod deficits in language, mod deficits in abstraction/conceptual thinking, and min deficits in orientation. The total possible score is 30 points; a score of 26 or above is considered normal (no cognitive impairment). Administered the MoCA with The patient scored a 17/30, indicating cognitive impairment. Pt has substantial short term memory deficits that warrant the importance of increased supervision and assistance upon d/c home due to safety concerns. Pt would greatly benefit from increased assistance with medications and other important tasks requiring memory at this time. Refer to flowsheet for details of scoring. Patient was educated in external memory compensation strategies, including writing down information to remember and having family assist with medication. Patient was educated on the impact of physical activity on cognitive maintenance Total Timed Code Treatment Minutes: 10 Total Treatment Time (minutes): 25 FUNCTIONAL G CODE: OT 6 Clicks Score: 20 (10/17/18 1325) Self Care Current Status (G8987): CJ (10/17/18 1325) Self Care Goal Status (G8988): CI (10/17/18 1325) Based on clinical assessment and the score on the 6 Clicks Functional Assessment Tool, the G code and corresponding severity modifiers are documented above. SUBJECTIVE: Current Hospital Course: Chart reviewed; 58 y/o female who presented to the ED s/p fall at home. Imaging found Subdural hematoma. Neuro found no need for surgical intervention at this time. PAST MEDICAL HISTORY Diagnosis Date - Anemia - Bipolar affect, depressed (HCC) - Diabetes mellitus - Elevated liver enzymes - Esophageal reflux - Fatty liver - GERD (gastroesophageal reflux disease) - Hypertension - Leukocytosis, unspecified - Obstructive sleep apnea (adult) (pediatric) - PAF (paroxysmal atrial fibrillation) (HCC) - Personal history of colonic polyps - Urge incontinence 02/01/2017 PAST SURGICAL HISTORY Procedure Laterality Date - APPENDECTOMY 1976 - COLONOSCOP W/ OR W/O BRSH SPEC 02/13/2017 Colonoscopy mac - COLONOSCOPY 04/17/2011 X6. TA in 2008 - EGD W/O OR W/BRUSH/WASH 06/09/14 EGD - EGD W/O OR W/BRUSH/WASH 02/13/2017 EGD mac - FOOT RIGHT OP SURGERY 1992 rebuilt bottom of right foot - HEART CATHETERIZATION - LIGATE FALLOPIAN TUBE 1982 - REMOVAL OF GALLBLADDER 1977 - SCREENING COLONOSCOPY, NOT HIGH RISK PT 04/17/2011 next 04/17/16, Dr. Dimitris Staton [place] - TOTAL ABDOM HYSTERECTOMY Hysterectomy, LEONILA - TOTAL HIP REPLACEMENT bilateral 2007 right hip, 2010 lef t hip Reason for Occupational Therapy Consult: evaluation, SAH Relevant Past Medical History: B LUIZ, anemia, bipolar disorder Patient Report: OOB in chair. IDx2. Agreeable to therapy. Pt reports: My head, it's killing me. Home Environment Patient Lives With: Spouse Assistance Available: 24 Hour (Daughter lives next door) Entry To Home: Stairs Number Of Stairs Into Home: 1 Number Of Stairs To Bed/Bath: 0 Tub/Shower Type: tub shower Laundry: family able to assist Equipment Owned: Cane;Shower Chair;Wheeled Walker Prior Functional Level: Within Functional Limits Prior Functional Level Comments: Pt was independent with ADLs and IADLs, still drives OBJECTIVE: Responsiveness: Awake;Drowsy Follows Commands: 2-step Commands Memory Deficits: Short Term Executive Function Deficits: Safety Awareness;Problem Solving;Insight to Deficits;Judgement Safety Awareness Deficit: Moderate impairment Judgement Deficit: Moderate impairment Insight to Deficits: Moderate impairment Problem Solving Deficit: Moderate impairment MoCA Total: 17 CURRENT FUNCTIONAL STATUS: Current Activities of Daily Living Assist Level Feeding Supervision Grooming Contact Guard Assistance Bathing Upper Body Contact Guard Assistance Bathing Lower Body Contact Guard Assistance Dressing Upper Body Contact Guard Assistance Dressing Lower Body Contact Guard Assistance Toileting Contact Guard Assistance Functional Mobility Assist Level Rolling Supine to Sit Sit to Supine Scooting Stand By Assistance Sit to Stand Contact Guard Assistance Stand to Sit Contact Guard Assistance Bed to Chair Toilet/Commode Functional Mobility Hand Dominance: Right Range of Motion: WFL Strength: Upper Extremity Comments Right Upper Extremity Strength Comments: 3+/5 MMT Left Upper Extremity Strength Comments: 3+/5 MMT Balance: Static Sitting Static Sitting Balance: Contact Guard Assistance Please see discipline specific clinical documentation flowsheet for complete details for this therapy evaluation/treatment. SIGNATURE: Marlon Lemon S/OT PATIENT NAME: Elli Guerrero DATE: October 17, 2018 TIME: 2:02 PM I reviewed and agree with the documentation corresponding to this therapy visit. SIGNATURE: Juany Ceja, OTR/L DATE: October 17, 2018 TIME: 2:58 PM Evaluation and/or treatment directly supervised by licensed Occupational Therapist. NURSING PROG Observed: 10/17/2018 Status: COMPLETED Source: [place] 1:[address] [facility] OTHER [place] REPOSITORY HNO ID: [id number] Author: Palmira HenriquezRn) ANDREI Jimenez Service: Nursing Author Type: Registered Nurse Type: Nursing Progress Note Filed: 10/17/2018 1:22 PM Note Text: RN touched base with resident Sean re pts increased headache and fear that she is still bleeding and is going to . RN did a through neruo assessment with no changes in pts condition. PT had been up and about the unit with PT and siting in recliner prior to increased headache. RN explained to pt and family at bedside with wood mill supervisor Milly what resident said as well as plan to transfer to the floor per resident rather than dc to home. All verbalize understanding and seem content with explanation. GLUCOSE METER Collected: 10/17/2018 Status: F Source: [facility] 12:35 PM HEALTH SYSTEM REPOSITORY TYPE CODE TESTS RESULT OUT OF REFERENCE UNITS RANGE LAB GLUBL(LOINC 70-99 mg/dL ) High Glucose Meter 154 Result Comment: RN NOTIFIED Performed By: #### GLMET #### [place] [address] NURSING PROG Observed: 10/17/2018 Status: COMPLETED Source: [place] 12:19 PM [facility] REPOSITORY HNO ID: [id number] Author: Palmira Sales) ANDREI Jimenez Service: Nursing Author Type: Registered Nurse Type: Nursing Progress Note Filed: 10/17/2018 12:31 PM Note Text: RN entered pts room to update and touch base with dtr and mother. RN explained that Dr Omer rounded, stated that if pt felt appropriate pt could be dced home today. PT saw pt approx 11am, RN read note and paged Dr Lugo to update orders but had not heard back from him yet. Pts daughter was very upset that she had not been given a heads up re dc to home sooner. RN attempted to explain that we would have contacted her and also discussed that it had only been about [address] Omer saw her and only about an hour since pt had worked with her and that orders had not been written for dc yet in fact RN had not yet heard from resident from page yet. Dtr was not content with RNs explanation and continued to be frustrated, RN offered to get the warehouse engineer to speak with dtr. RN paged warehouse engineer Milly re situation. Milly stated that she would be along as quickly as she could. RN updated pt, dtr, and mother re contact with wood mill supervisor. THERAPY NT Observed: 10/17/2018 Status: COMPLETED Source: [place] 11:38 AM CLINIC OTHER CAMPUS REPOSITORY HNO ID: [id number] Author: Mindi (Pt) Anish Service: Physical Therapy Author Type: Physical Therapist Type: Therapy (PT/OT/Speech/Resp) Filed: 10/17/2018 2:59 PM Note Text: Physical Therapy Evaluation SERVICE DATE: 10/17/2018 SERVICE TIME: 1043 to 1106 ROOM: [place] [address] Recommended Discharge Disposition: Outpatient physical therapy for balance Recommended Discharge Disposition Comments: Patient may benefit from initial increased supervision due to decreased safety awareness Anticipated Discharge Needs: Physical Assist at Home Physical Assist at Home for: Cleaning;Laundry;Meals;Stairs;Safety;Shopping;Transportation PT Recommendations to Nursing: Ambulate without device;To bathroom;OOB for Meals;With assist of 1 person Device: No Device PT 6 Clicks Score: 20 Precautions/Activity Restrictions: Fall Risk ASSESSMENT : Patient who was admitted for fall with Left SDH with Right shift, presents with an evolving hospital course and the past medical history of B LUIZ, bipolar limiting current functional level; thus the patient required a moderate level complexity evaluation. This patient is below baseline functioning of independent without assistive device, driving and will benefit from continued skilled therapy in the hospital for treatment of musculoskeletal, neuromuscular impairments which require gait training, transfer training, neuromuscluar re-education, family training, general strengthening, balance training, safety and endurance training. Currently the recommendation is home PT due to above listed functional deficits. Patient Disposition at Start of Session: OOB in Chair (on the commode with nursing) Patient Disposition at End of Session: OOB in Chair;Call Guido in Reach Tolerated Full Session Physical Therapy Problem List: Education Deficit;Safety Deficits;Functional Mobility Impairment;Balance Impaired Patient /Caregiver Goals: Go Home Goals for Plan of Care: Transfer supine to/from sit with: Supervision Transfer sit to/from stand with: Supervision Ambulate with: Supervision Distance: 150 ft intervals Device: (least restrictive device) Rehab Potential: Good PLAN: Treatment Frequency (times per week): 5 (1-5) Current admission Treatment Interventions: Education;Strengthening;Functional Mobility Training;Balance Training Plan of Care developed with: Patient TREATMENT INTERVENTIONS: Therapy Diagnosis: Reduced mobility-other;Unsteadiness on feet Interventions Provided: Evaluation;Therapeutic Activity (35020) $ Evaluation-Moderate (34689) Billed Units: 1 unit Therapeutic Activity (27822) Treatment Minutes: 9 1 unit Skilled Intervention(s): Instruction in sit to stand technique with proper hand placement and body positioning at edge of bed/chair Instruction in stand to sit technique with lower extremities touching chair/bed and reaching back for surface Instruction to increase time between position changes due to initial complaint of dizziness with standing from commode Instruction on safety during functional mobility Instruction to use an assistive device as she was occasionally reaching for objects in hallway during gait - patient states I do that all the time at home Total Timed Code Treatment Minutes: 9 Total Treatment Time (minutes): 23 FUNCTIONAL G CODE: PT 6 Clicks Score: 20 (10/17/18 1043) Mobility: Walking and Moving Around Current Status (G8978): CJ (10/17/18 1043) Mobility: Walking and Moving Around Goal Status (G8979): CI (10/17/18 1043) Based on clinical assessment and the score on the 6 Clicks Functional Assessment Tool, the G code and corresponding severity modifiers are documented above. SUBJECTIVE: Current Hospital Course: Chart reviewed; Patient is a 58 year old female who presents to the hospital with a fall and L SDH with R shift. Patient was ambulatory initially and was driving following the fall Reason for Physical Therapy Consult : safety assessment Relevant Past Medical History: B LUIZ, anemia, bipolar disorder Active Hospital Problems Diagnosis - SDH (subdural hematoma) (HCC) - Midline shift of brain due to hematoma - Fall - TBI (traumatic brain injury) (HCC) - ICH (intracerebral hemorrhage) (HCC) - Type 2 diabetes mellitus without complication (HCC) PAST MEDICAL HISTORY Diagnosis Date - Anemia - Bipolar affect, depressed (HCC) - Diabetes mellitus - Elevated liver enzymes - Esophageal reflux - Fatty liver - GERD (gastroesophageal reflux disease) - Hypertension - Leukocytosis, unspecified - Obstructive sleep apnea (adult) (pediatric) - PAF (paroxysmal atrial fibrillation) (HCC) - Personal history of colonic polyps - Urge incontinence 02/01/2017 PAST SURGICAL HISTORY Procedure Laterality Date - APPENDECTOMY 1976 - COLONOSCOP W/ OR W/O BRSH SPEC 02/13/2017 Colonoscopy mac - COLONOSCOPY 04/17/2011 X6. TA in 2008 - EGD W/O OR W/BRUSH/WASH 06/09/14 EGD - EGD W/O OR W/BRUSH/WASH 02/13/2017 EGD mac - FOOT RIGHT OP SURGERY 1992 rebuilt bottom of right foot - HEART CATHETERIZATION - LIGATE FALLOPIAN TUBE 1982 - REMOVAL OF GALLBLADDER 1977 - SCREENING COLONOSCOPY, NOT HIGH RISK PT 04/17/2011 next 04/17/16, [place] - TOTAL ABDOM HYSTERECTOMY Hysterectomy, LEONILA - TOTAL HIP REPLACEMENT bilateral 2007 right hip, 2010 lef t hip Patient Report: 03/04 headache. Agreeable to PT. I am not worried about anything at home except for dying Home Environment Patient Lives With: Spouse Assistance Available: 24 Hour (Daughter lives next door) Entry To Home: Stairs Number Of Stairs Into Home: 1 Number Of Stairs To Bed/Bath: 0 Tub/Shower Type: tub shower Laundry: family able to assist Equipment Owned: Cane;Shower Chair;Wheeled Walker Prior Functional Level: Within Functional Limits Prior Functional Level Comments: Pt was independent with ADLs and IADLs, still drives OBJECTIVE: CURRENT FUNCTIONAL STATUS: Current Functional Mobility Assist Level Additional Information Rolling Supine to Sit On commode with nursing upon arrival Sit to Supine Scooting Sit to Stand Contact Guard Assistance Stand to Sit Contact Guard Assistance Bed to Chair Toilet/Commode Gait Contact Guard Assistance Gait Device: None Gait Distance (feet): 60 ft x 2 Stairs Curb Step Car Transfer General Gait Deviations: Lauren decreased;Lateral sway increased;Wide base of support;Non-functional gait speed Range of Motion: WFL Strength: WFL Modified 4 Item DGI score 10/12. Normal is 10-12/12 Positive rhomberg with eyes closed Please see discipline specific clinical documentation flowsheet for complete details for this therapy evaluation/treatment. SIGNATURE: Mindi Oocnnell PT PATIENT NAME: Elli Guerrero DATE: October 17, 2018 TIME: 11:38 AM NUTRITION Observed: 10/17/2018 Status: COMPLETED Source: [place] 8:19 AM CLINIC OTHER CAMPUS REPOSITORY HNO ID: [id number] Author: Angela Beasley Service: Nutrition Therapy Author Type: Registered Dietitian Type: Nutrition Filed: 10/17/2018 1:38 PM Note Text: NUTRITION THERAPY PROGRESS NOTE SERVICE DATE: 10/17/2018 SERVICE TIME: 8:19 AM RECOMMENDED DIAGNOSIS: MILD PROTEIN-CALORIE MALNUTRITION per Registered Dietitian on 10/14/18 NUTRITION CARE PLAN Problem, Etiology and Signs/Symptoms: Suboptimal oral intake related to multiple medical problems in the last year as evidenced by pt's daughter Intervention: Patient refused nutritional supplements at this time, states she does not like the food here but will try to eat well. She reported that if she does not eat well she will ask for oral supplements when she wants one. As appropriate, recommend add Boost Glucose Control to trays to support variable PO intake. Monitor and Evaluation: Goal: Meet >75% of estimated needs Monitor fluid/electrolyte balance Monitor labs, I/Os, vital signs, weight Discharge Nutrition Recommendations: Supplements: Boost glucose Control to support poor appetite. Nutrition Follow-up: Per HPI: 58-year-old female transferred to the emergency department from [facility] via EMS for evaluation s/p fall. Pt was seen at [facility] for evaluation of a fall. ?Patient slipped this morning at approximately 10 AM falling and hitting her head on the counter. Pt denies any loss of consciousness at that time. ?Patient states she went about her day and even drove her in the hospital and babysat for her grandson. ?Patient states she ended up going into the hospital for a headache at which time it was found patient had a subdural and subarachnoid hemorrhage. ?Patient transferred to our facility for a trauma evaluation. Interval History: ST recommending dysphagia 3 diet. Pt transferred to floor from NSICU. Pt to f/u with NS as outpatient. C-collar removed. Pain controlled. Nutritional Intake: 0-25% estimated energy needs over the past 4 days with NPO diet order and pt only taking bites of food when feed per nursing records. Per RD 10/14: Nutritional Intake Prior to Admission: <50% estimated energy need over the past year per her daughter Current Diet Order DIET FOOD CONSISTENCY CONTROLLED Order Specific Question: Food Consistency Answer: DYSPHAGIA LEVEL 3 ADVANCED Lines and Drains: Peripheral 10/13/18 1728 Short Right Antecubital 16 Gauge (Active) Peripheral 10/15/18 0600 Short Right Wrist 20 Gauge (Active) External Urinary Drain 10/14/18 1205 Assessment (Active) Height: 165.1 cm (5' 5) Admission Weight: 113.4 kg (250 lb) Current Weight: 113.1 kg (249 lb 5.4 oz) Body mass index is 41.49 kg/m?. class 3 obesity Recent Labs 10/17/18 0603 GLUC 156* BUN 12 CREAT 0.54 NA 138 K 4.2 CHLOR 106 CO2 24 P 4.1 HB 11.8 HCT 36.0 WBC 6.26 MG 2.1 ALLERGIES No Known Allergies Current Facility-Administered Medications: glimepiride 4 mg tab(s) (AMARYL) 4 mg ORAL DAILY WITH BREAKFAST melatonin 6 mg tab(s) 6 mg ORAL DAILY (8 PM) levETIRAcetam 1,000 mg tab(s) (KEPPRA) 1,000 mg ORAL BID NaCl 0.9% 2-10 mL 2-10 mL INTRAVENOUS q 12 H metFORMIN 1,000 mg tab(s) (GLUCOPHAGE) 1,000 mg ORAL BID w MEALS insulin regular human injection (short acting) (NovoLIN R,HumuLIN R) SUBCUTANEOUS w MEALS AND HS hydroxychloroquine 200 mg (PLAQUENIL) 200 mg ORAL BID w MEALS prochlorperazine 10 mg injection (COMPAZINE) 10 mg INTRAVENOUS q 6 H PRN dextrose 40 % 15 g 15 g ORAL PRN Or glucagon 1 mg injection (GLUCAGEN) 1 mg INTRAMUSCULAR PRN Or dextrose 50% in water 25 mL syringe 12.5 g INTRAVENOUS PRN acetaminophen 1,000 mg tab(s) (TYLENOL) 1,000 mg ORAL q 6 H PRN metoprolol succinate ER 50 mg tab(s) (TOPROL XL) 50 mg ORAL DAILY Ferrous Gluconate 324 mg tab(s) (FERGON) 324 mg ORAL BID w MEALS pantoprazole DR 40 mg tab(s) (PROTONIX) 40 mg ORAL DAILY sertraline 100 mg tab(s) (ZOLOFT) 100 mg ORAL BID potassium chloride 80-120 mEq oral liquid 80-120 mEq ORAL/FEEDING TUBE PRN potassium chloride iv piggyback 20 mEq/100 mL 20 mEq INTRAVENOUS PRN magnesium sulfate in water 2 g in sterile water 50 ml 2 g INTRAVENOUS PRN sodium glycerophosphate 45 mmol in NaCl 0.9% 250 mL (GLYCOPHOS) 45 mmol INTRAVENOUS PRN calcium gluconate 4 g in NaCl 0.9% 250 mL 4 g INTRAVENOUS PRN ondansetron 4 mg tab(s) (ZOFRAN) 4 mg ORAL q 6 H PRN Or ondansetron (PF) 4 mg injection (ZOFRAN) 4 mg INTRAVENOUS q 6 H PRN lithium carbonate ER 450 mg tab(s) 450 mg ORAL DAILY lithium carbonate ER 900 mg tab(s) 900 mg ORAL AT BEDTIME Date 10/16/18 07 - 10/17/18 0659 10/17/18 07 - 10/18/18 0659 Shift 9497-3666 0404-3528 1125-8668 24 Hour Total 5677-6697 5367-4485 6215-1246 24 Hour Total I N T A K E PO 360 360 PO 360 360 IV 172 172 NS 0.9% 172 172 Shift Total 172 360 532 O U T P U T Urine 1750 379 494 7687 Void (ml) 850 691 548 2581 Urine Incontinence/Not Saved 1 x 1 x Tube Output ( External Urinary Drain 10/14/18 1205 Assessment) 900 900 # of BMs Number of BMs 0 x 0 x Shift Total 1750 780 992 0122 Weight (kg) 115.8 115.8 113.1 113.1 113.1 113.1 113.1 113.1 Vitamin and Mineral Labs in the past year: Recent Labs 10/06/18 1335 04/03/18 1023 B12 -- -- 497 TIBC 405* < > 484* FE 110 < > 38* BRENNAN -- -- 22.1 < > = values in this interval not displayed. MNT Billing Type: Re-assess/15 min 2 units SIGNATURE: Angela Beasley RD, LD PATIENT NAME: Elli Guerrero DATE: October 17, 2018 TIME: 8:19 AM PAGER: [phone] PROGRESS Observed: 10/17/2018 Status: COMPLETED Source: [facility] 6:15 AM CLINIC OTHER CAMPUS REPOSITORY O ID: [id number] Author: Rohit Omer Service: Trauma Author Type: Physician Type: Progress Notes Filed: 10/17/2018 12:15 PM Note Text: Trauma Surgery Progress Note SERVICE DATE: 10/17/2018 SUBJECTIVE: No reported events overnight. No pain, numbness, weakness, pain or complaints. Woke up immediately and was appropriately conversational. Complained of headache - 3/10 - per patient is the same as yesterday Tolerating diet DIET FOOD CONSISTENCY CONTROLLED OBJECTIVE: Vitals: Temp (24hrs), Av.9 ?C (98.4 ?F), Min:36.5 ?C (97.7 ?F), Max:37.2 ?C (99 ?F) BP 104/53 Pulse (!) 48 Temp 37 ?C (98.6 ?F) Resp 18 Ht 165.1 cm (5' 5) Wt 113.1 kg (249 lb 5.4 oz) SpO2 96% BMI 41.49 kg/m? O2 Therapy: Room Air IANDO: Date 10/16/18 07 - 10/17/18 0659 10/17/18 07 - 10/18/18 0659 Shift 3710-4535 2943-5872 7704-4950 24 Hour Total 7541-1020 1325-9895 9567-2152 24 Hour Total I N T A K E PO 360 360 PO 360 360 IV 172 172 NS 0.9% 172 172 Shift Total 172 360 532 O U T P U T Urine 1750 842 978 0482 Void (ml) 850 475 497 4681 Urine Incontinence/Not Saved 1 x 1 x Tube Output ( External Urinary Drain 10/14/18 1205 Assessment) 900 900 # of BMs Number of BMs 0 x 0 x Shift Total 1750 016 583 2274 Weight (kg) 115.8 115.8 113.1 113.1 113.1 113.1 113.1 113.1 MEDICATIONS Current Facility-Administered Medications: glimepiride 4 mg tab(s) (AMARYL) 4 mg ORAL DAILY WITH BREAKFAST melatonin 6 mg tab(s) 6 mg ORAL DAILY (8 PM) levETIRAcetam 1,000 mg tab(s) (KEPPRA) 1,000 mg ORAL BID NaCl 0.9% 2-10 mL 2-10 mL INTRAVENOUS q 12 H metFORMIN 1,000 mg tab(s) (GLUCOPHAGE) 1,000 mg ORAL BID w MEALS insulin regular human injection (short acting) (NovoLIN R,HumuLIN R) SUBCUTANEOUS w MEALS AND HS hydroxychloroquine 200 mg (PLAQUENIL) 200 mg ORAL BID w MEALS prochlorperazine 10 mg injection (COMPAZINE) 10 mg INTRAVENOUS q 6 H PRN dextrose 40 % 15 g 15 g ORAL PRN Or glucagon 1 mg injection (GLUCAGEN) 1 mg INTRAMUSCULAR PRN Or dextrose 50% in water 25 mL syringe 12.5 g INTRAVENOUS PRN acetaminophen 1,000 mg tab(s) (TYLENOL) 1,000 mg ORAL q 6 H PRN metoprolol succinate ER 50 mg tab(s) (TOPROL XL) 50 mg ORAL DAILY Ferrous Gluconate 324 mg tab(s) (FERGON) 324 mg ORAL BID w MEALS pantoprazole DR 40 mg tab(s) (PROTONIX) 40 mg ORAL DAILY sertraline 100 mg tab(s) (ZOLOFT) 100 mg ORAL BID potassium chloride 80-120 mEq oral liquid 80-120 mEq ORAL/FEEDING TUBE PRN potassium chloride iv piggyback 20 mEq/100 mL 20 mEq INTRAVENOUS PRN magnesium sulfate in water 2 g in sterile water 50 ml 2 g INTRAVENOUS PRN sodium glycerophosphate 45 mmol in NaCl 0.9% 250 mL (GLYCOPHOS) 45 mmol INTRAVENOUS PRN calcium gluconate 4 g in NaCl 0.9% 250 mL 4 g INTRAVENOUS PRN ondansetron 4 mg tab(s) (ZOFRAN) 4 mg ORAL q 6 H PRN Or ondansetron (PF) 4 mg injection (ZOFRAN) 4 mg INTRAVENOUS q 6 H PRN lithium carbonate ER 450 mg tab(s) 450 mg ORAL DAILY lithium carbonate ER 900 mg tab(s) 900 mg ORAL AT BEDTIME Labs: Recent Labs 10/17/18 0603 10/16/18 0430 10/15/18 0315 NA -- 137 140 K -- 4.8 3.8 CHLOR -- 109* 109* CO2 -- 23 24 BUN -- 9 8 CREAT -- 0.49* 0.57 GLUC -- 142* 165* ANION -- 10 11 CA -- 8.8 9.0 MG -- 2.0 2.1 P -- 3.6 3.0 WBC 6.26 5.33 5.57 HB 11.8 11.4 11.2 HCT 36.0 35.9 35.3 PLT 112* 106* 109* Exam: GENERAL: No distress, alert NEURO: CN II-XII grossly intact HEENT: normocephalic, atraumatic, c-collar in place LUNGS: Unlabored breathing on RA CARDIAC: Regular rate and rhythm ABDOMEN: Soft, non-tender, non-distended EXTREMITIES: MANLEY ASSESSMENT AND PLAN: Active Hospital Problems Diagnosis Date Noted - SDH (subdural hematoma) ([facility]) 10/14/2018 - Midline shift of brain due to hematoma 10/14/2018 - Fall 10/14/2018 - TBI (traumatic brain injury) ([facility]) 10/14/2018 - ICH (intracerebral hemorrhage) ([facility]) 10/13/2018 - Type 2 diabetes mellitus without complication ([facility]) 01/08/2012 58 year old female s/p GLF with L SDH with R shift Imaging performed: 1. XR Pelvis (10/13/18): right superior pubic ramus lucency, likely bowel gas 2. XR Chest (10/13/18): low lung volumes 3. CT Brain (10/13/18): L SDH no significant shift unchanged from previous image, minimal increase of SDH in posterior fissure 4. CT Brain (10/14/18): no change in L SDH, no change of SDH in posterior fissure, small R cerebral convexity extra axial hemorrhage 3mm - also unchanged Traumatic Inuries: 1. SDH, midline shift Care Plan: 1. Transfer to floor 2. Current diet order: DIET FOOD CONSISTENCY CONTROLLED 3. Pain orders: 4. Bowel regimen: 5. NSurg: f/u with Dr. Schmidt in 4-6 weeks, efrem 6. PT pending Consulted Services and recs: 1. Neurosurgery 2. Physical Therapy Dispo Plannin. TBD PPX: 1. DVT: SCDs, no LVX at this time 2. Ulcer: PPI 3. Vit D level if > 65 yo: 497 4. ARC monitoring indicated? Incidentals: 1. None Follow Up Needs: 1. NSx in 4-6 weeks Assessment and plan discussed with attending: Dr Omer SIGNATURE: Rand Chen MD PATIENT NAME: Elli Guerrero DATE: October 17, 2018 TIME: 9:30 AM Pager: below Trauma Service Pager: For questions or concerns Sat-Sat 6a-5p please page [phone]. After 5pm and on Weekends and Holidays, please page [phone] if in ICU or [phone] if on RNF. I saw and evaluated the patient. Discussed with the resident and agree with resident's findings and plan as documented in the resident's note. Patient awake alert and oriented. Tolerating diet. PT says patient can go home. Discharged today in follow-up with neurosurgery. Trauma Service Pager: For questions or concerns - please page [phone]. After 5pm and on Weekends and Holidays, please page [phone] if in ICU or [phone] if on RNF. Rand Chen MD General Surgery Resident October 17, 2018 6:57 AM IONIZED CALCIUM Collected: 10/17/2018 Status: F Source: [facility] 6:04 AM HEALTH SYSTEM REPOSITORY TYPE CODE TESTS RESULT OUT OF REFERENCE UNITS RANGE LAB CAION(LOINC 4.43-4.93 mg/dL ) Ionized 4.83 Calcium LAB PHCAI(LOINC 7.320-7.420 ) pH 7.369 LAB CAPH(LOINC) 4.36-4.73 mg/dL High Ionized 4.76 Ca,PH7.4 Performed By: #### IONCA #### [place] [address] MDRD GFR Collected: 10/17/2018 Status: F Source: [facility] 6:03 AM HEALTH SYSTEM REPOSITORY TYPE CODE TESTS RESULT OUT OF RANGE REFERENCE UNITS LAB GFRFN(LOINC >60mL/min/1.73m ) 2 eGFR >60 Result Comment: If the patient is , multiply the result by 1.210. Performed By: #### GFR #### [place] [address] HEMOGRAM Collected: 10/17/2018 Status: F Source: [facility] 6:03 AM HEALTH SYSTEM REPOSITORY TYPE CODE TESTS RESULT OUT OF REFERENCE UNITS RANGE LAB WBC(LOINC) 3.98-10.04 thou/cmm WBC 6.26 LAB RBC(LOINC) 3.93-5.22 mil/cmm RBC 3.98 LAB HGB(LOINC) 11.2-15.7 g/dL Hgb 11.8 LAB HCT(LOINC) 34.1-44.9 % Hct 36.0 LAB MCV(LOINC) 79.4-94.8 fl MCV 90.5 LAB MCH(LOINC) 25.6-32.2 pg MCH 29.6 LAB MCHC(LOINC) 31.6-34.8 % MCHC 32.8 LAB RDW(LOINC) 11.7-14.4 % RDW 13.6 LAB RDWSD(LOINC 36.4-46.3 fl ) RDW SD 44.9 LAB PLT(LOINC) 182-369 thou/cmm Low Platelet 112 LAB MPV(LOINC) 9.4-12.3 fl MPV 9.9 Performed By: #### CBC1 #### [place] [address] BASIC PANEL Collected: 10/17/2018 Status: F Source: [facility] 6:03 [facility] SYSTEM REPOSITORY TYPE CODE TESTS RESULT OUT OF REFERENCE UNITS RANGE LAB NA(LOINC) 136-145 mEq/L Sodium Blood 138 LAB K(LOINC) 3.5-5.1 mEq/L Potassium Blood 4.2 LAB CL(LOINC) 98-107 mEq/L Chloride Blood 106 LAB CO2(LOINC) 21-32 mEq/L CO2 Blood 24 LAB GLU(LOINC) 70-99 mg/dL Glucose High Blood 156 LAB BUN(LOINC) 7-18 mg/dL BUN Blood 12 LAB CREA(LOINC 0.51-0.95 mg/dL ) Creatinine Blood 0.54 LAB CA(LOINC) 8.5-10.1 mg/dL Calcium Blood 9.2 LAB ANGAP(LOIN 8-16 C) Anion Gap 12 Performed By: #### P8 #### [place] [address] MAGNESIUM BLOOD Collected: 10/17/2018 Status: F Source: [facility] 6:03 [facility] SYSTEM REPOSITORY TYPE CODE TESTS RESULT OUT OF REFERENCE UNITS RANGE LAB MAG(LOINC) 1.6-2.6 mg/dL Magnesium Blood 2.1 Performed By: #### MAG #### [facility] [address] [place], [place] [address] PHOSPHORUS BLOOD Collected: 10/17/2018 Status: F Source: [facility] 6:03 AM HEALTH SYSTEM REPOSITORY TYPE CODE TESTS RESULT OUT OF REFERENCE UNITS RANGE LAB PHOS(LOINC 2.5-4.9 mg/dL ) Phosphorus Blood 4.1 Performed By: #### PHOS #### [facility] [address] [place], [place] [address] PROGRESS Observed: 10/17/2018 Status: COMPLETED Source: [facility] 5:21 AM CLINIC OTHER CAMPUS REPOSITORY HNO ID: [id number] Author: Jorge Estrada Service: ADT-SICU Author Type: Resident Type: Progress Notes Filed: 10/17/2018 6:20 AM Note Text: INPATIENT SICU PROGRESS NOTE SERVICE DATE: 10/17/2018 SERVICE TIME: 5:23 AM Subjective NAEON. Patient was talking and cooperative at beside. Current hospital medications: melatonin 6 mg tab(s) 6 mg ORAL DAILY (8 PM) levETIRAcetam 1,000 mg tab(s) (KEPPRA) 1,000 mg ORAL BID NaCl 0.9% 2-10 mL 2-10 mL INTRAVENOUS q 12 H metFORMIN 1,000 mg tab(s) (GLUCOPHAGE) 1,000 mg ORAL BID w MEALS insulin regular human injection (short acting) (NovoLIN R,HumuLIN R) SUBCUTANEOUS w MEALS AND HS hydroxychloroquine 200 mg (PLAQUENIL) 200 mg ORAL BID w MEALS prochlorperazine 10 mg injection (COMPAZINE) 10 mg INTRAVENOUS q 6 H PRN dextrose 40 % 15 g 15 g ORAL PRN glucagon 1 mg injection (GLUCAGEN) 1 mg INTRAMUSCULAR PRN dextrose 50% in water 25 mL syringe 12.5 g INTRAVENOUS PRN acetaminophen 1,000 mg tab(s) (TYLENOL) 1,000 mg ORAL q 6 H PRN metoprolol succinate ER 50 mg tab(s) (TOPROL XL) 50 mg ORAL DAILY Ferrous Gluconate 324 mg tab(s) (FERGON) 324 mg ORAL BID w MEALS pantoprazole DR 40 mg tab(s) (PROTONIX) 40 mg ORAL DAILY sertraline 100 mg tab(s) (ZOLOFT) 100 mg ORAL BID potassium chloride 80-120 mEq oral liquid 80-120 mEq ORAL/FEEDING TUBE PRN potassium chloride iv piggyback 20 mEq/100 mL 20 mEq INTRAVENOUS PRN magnesium sulfate in water 2 g in sterile water 50 ml 2 g INTRAVENOUS PRN sodium glycerophosphate 45 mmol in NaCl 0.9% 250 mL (GLYCOPHOS) 45 mmol INTRAVENOUS PRN calcium gluconate 4 g in NaCl 0.9% 250 mL 4 g INTRAVENOUS PRN ondansetron 4 mg tab(s) (ZOFRAN) 4 mg ORAL q 6 H PRN ondansetron (PF) 4 mg injection (ZOFRAN) 4 mg INTRAVENOUS q 6 H PRN lithium carbonate ER 450 mg tab(s) 450 mg ORAL DAILY lithium carbonate ER 900 mg tab(s) 900 mg ORAL AT BEDTIME Objective VITAL SIGNS BP 107/57 Pulse 49 Temp (Src) 98.6 (Temporal Artery) Resp 16 Ht 5' 5 (1.65m) Wt 249 lb 5.4 oz (113.1kg) SpO2 98% BMI 41.49 kg/(m2). Temp (24hrs), Av.9 ?C (98.4 ?F), Min:36.5 ?C (97.7 ?F), Max:37.2 ?C (99 ?F) Date 10/16/18 07 - 10/17/18 0659 10/17/18 0700 - 10/18/18 0659 Shift 0601-6366 1027-6557 7631-0533 24 Hour Total 6188-9245 3846-7475 5566-2499 24 Hour Total I N T A K E PO 360 360 PO 360 360 IV 172 172 NS 0.9% 172 172 Shift Total 172 360 532 O U T P U T Urine 1750 907 187 7938 Void (ml) 850 082 847 0398 Urine Incontinence/Not Saved 1 x 1 x Tube Output ( External Urinary Drain 10/14/18 1205 Assessment) 900 900 # of BMs Number of BMs 0 x 0 x Shift Total 1750 011 960 7794 Weight (kg) 115.8 115.8 113.1 113.1 113.1 113.1 113.1 113.1 PHYSICAL EXAM: GENERAL: Alert, no distress, cooperative SKIN: Skin color, texture, turgor normal. No rashes or lesions. LUNGS: on O2 Therapy: Room Air on Liters: 2 sating at SpO2: 98 % CARDIAC: Regular rate and rhythm ABDOMEN: soft, nontender, nondistended EXTREMITIES: ROM of all joint grossly normal: strength grossly normal bilaterally. No deformities noted. NEURO: A/O x3 DATA: Diagnostic tests reviewed for today's visit: Recent Labs 10/16/18 0430 10/15/18 0315 CREAT 0.49* 0.57 BUN 9 8 NA 137 140 K 4.8 3.8 CHLOR 109* 109* CO2 23 24 ANION 10 11 GLUC 142* 165* CA 8.8 9.0 P 3.6 3.0 MG 2.0 2.1 WBC 5.33 5.57 HB 11.4 11.2 HCT 35.9 35.3 PLT 106* 109* Assessment/Plan This is a 58 year old female with left subdural hematoma with midline shift ACTIVE PROBLEM LIST Type 2 Diabetes Mellitus Without Complication (Hcc) Hypertension Bipolar Affective Disorder (Hcc) Morbid Obesity (Hcc) Fatty Liver Paroxysmal Atrial Fibrillation (Hcc) History of Colonic Polyps Obstructive Sleep Apnea (Adult) (Pediatric) Gerd (Gastroesophageal Reflux Disease) Urge Incontinence Positive Maty (Antinuclear Antibody) Iron Deficiency Anemia Anemia Obesity, Class III, BMI >= 40 Ich (Intracerebral Hemorrhage) (Hcc) Sdh (Subdural Hematoma) (Hcc) Midline Shift of Brain Due to Hematoma Fall Tbi (Traumatic Brain Injury) (Hcc) Feeding: Diet Food consistency controlled, Dysphagia level 3 advanced Analgesia/sedation: Tylenol 1000mg Q6H PRN Volume status: Intake/Output Summary (Last 24 hours) at 10/17/18 0524 Last data filed at 10/17/18 0200 Gross per 24 hour Intake 532 ml Output 2450 ml Net -1918 ml PO 360 IV 172 Urine 2450 OT/PT weight bearing status: -Consider PT/OT with progressive mobilization -Currently on bedrest Respiratory status/vent weaning: Room are satting 98% Infection: WBC: 5.33, 5.57 No concern for infection Transfusion: HGB: 11.4, 11.2 No transfusion requirement Embolic prophylaxis: SCDs, chemoppx contraindicated Tubes lines and drains: Lines, Drains, and Airways Line Peripheral 10/13/18 1728 Short Right Antecubital 16 Gauge 3 days Peripheral 10/15/18 0600 Short Right Wrist 20 Gauge 1 day Drain External Urinary Drain 10/14/18 1205 Assessment 2 days Heart/CV AND home medications: Metoprolol 50mg QD Ulcer prophylaxis: Pantoprazole 40mg PO Glycemic control: Gluc- 142, 165 Resumed home metformin, Begin home amaryl this morning Resume home plaquenil Spines, statins and special medications, need for Restraints: VTE Prophylaxis: SCDs, chemoprophylaxis contraindicate GI Prophylaxis: Protonix 40mg QD Are pain needs met? Yes Skin integrity: Skin Intact and Preventative Measures Implemented Disposition: Transfer to floor SICU Service Pager: For questions or concerns Mon-Fri 6a-5p please page [phone]. After 5pm and on Weekends and Holidays, please page [phone]. SIGNATURE: Jorge Estrada MD PATIENT NAME: Elli Guerrero DATE: October 17, 2018 TIME: 5:23 AM PAGER: above THERAPY NT Observed: 10/16/2018 Status: COMPLETED Source: [facility] 9:20 AM CLINIC OTHER CAMPUS REPOSITORY HNO ID: [id number] Author: Yasmin (Eye Clinic Manager) KIRK Guzman/RISK DEVELOPER Service: Speech/Swallow Author Type: Speech Language Pathologist Type: Therapy (PT/OT/Speech/Resp) Filed: 10/16/2018 9:28 AM Note Text: Speech Therapy Clinical Swallow Evaluation SERVICE DATE: 10/16/2018 SERVICE TIME: 0850 to 0912 ROOM: [place] [address] Nursing Recommendations: See swallow guide posted in patients room;Reinforce use of swallowing strategies Diet Recommendations: Dysphagia Level 3 (Dysphagia Advanced);Thin liquids;Medications whole in puree (pudding/applesauce) Swallowing Precautions Recommendations: Alert (patient should be fully alert for P.O. intake);Extended time between presentations;Feed / Eat at a slow rate;Self-monitoring;Sit upright 90 degrees for all PO;Small Bite/Sip;Supervision/Assistance for meals. Results and Recommendations Discussed With: Patient;Nurse Recommended Discharge Disposition: Acute Rehab Justification For Post Acute Needs: Willing to participate;Motivated;Living the community premorbidly IMPRESSION: Patient demonstrates mild oral dysphagia which is negatively impacting his/her ability to effectively maintain adequate nutrition and hydration and/or airway safety. Rehabilitation Precautions: Modified Diet;Aspiration Precautions;Dysphagia;Diabetic ASSESSMENT: Patient awake and alert, + aspen collar Able to feed self Patient does not present with signs of aspiration with trials of thin and nectar from cup and straw Patient does not present with signs of aspiration with trials of puree and cracker Patient complains of oral weakness for bolus propulsion, with time she is able to propel all bolus textures Voice remains clear with all textures No oral residue Patient reports mild difficulty chewing-with mildly increased time she is effectively able-recommend a modified diet of dysphagia 3 and thins Safe swallowing precautions posted and nurse and patient educated on diet recommendations and safe swallowing precautions Tolerated Full Session Goals for Plan of Care: Swallow Goals: Patient will tolerate Dysphagia Level 3 (Dysphagia Advanced) diet consistency while utilizing compensatory/swallowing strategies given minimal cues in 90% of trials so that the patient will minimize the signs/symptoms of dysphagia. Patient will tolerate Thin Liquids consistency while utilizing compensatory/swallowing strategies given minimal cues in 90% of trials so that the patient will minimize the signs/symptoms of dysphagia. Patient will demonstrate adequate return of knowledge of all compensatory strategies/instruction to effectively assist the patient in immediate safety with oral intake and swallowing: small bites and sips, slow rate of intake, allow time for mastication Patient /Caregiver Goals: Eat/Drink Without Restrictions Rehab Potential: Good PLAN: Treatment Frequency (times per week): 3 Current admission Treatment Interventions: Dysphagia Management Plan of Care Developed with: Patient TREATMENT INTERVENTIONS: Therapy Diagnosis: Dysphagia, oral phase Interventions Provided: Clinical Swallow Evaluation (47856) $ Clinical Swallow Evaluation (51598) Billed Units: 1 unit Total Treatment Time (minutes): 22 FUNCTIONAL G CODE: G Code Functional Limitations: Swallowing (10/16/18849) Swallow Current Status (G8996): CI - At least 1 percent but less than 20 percent impaired, limited or restricted (10/16/1850) Swallow Goal Status (G8997): CH - 0 percent impaired, limited or restricted (10/16/1850) Based on clinical assessment and the score on the Functional Communication Measure (FCM), the G code and corresponding severity modifiers are documented above. SUBJECTIVE: Patient admitted s/p fall, hit head. Patient with aspen collar at this time Current Hospital Course: Chart reviewed; PAST MEDICAL HISTORY Diagnosis Date - Anemia - Bipolar affect, depressed (HCC) - Diabetes mellitus - Elevated liver enzymes - Esophageal reflux - Fatty liver - GERD (gastroesophageal reflux disease) - Hypertension - Leukocytosis, unspecified - Obstructive sleep apnea (adult) (pediatric) - PAF (paroxysmal atrial fibrillation) (HCC) - Personal history of colonic polyps - Urge incontinence 02/01/2017 Reason for Speech Therapy Consult: to ensure safe swallowing Relevant Past Medical History: Anemia, SM, BiPolar Patient Report: talking her dog Home Environment Prior Functional Level: Within Functional Limits Prior Swallowing Function/Diet Textures: Regular Consistency;Thin liquids Please see discipline specific clinical documentation flowsheet for complete details for this therapy evaluation/treatment. SIGNATURE: Yasmin Guzman CCC-RISK DEVELOPER PATIENT NAME: Elli Guerrero DATE: October 16, 2018 TIME: 9:20 AM PROGRESS Observed: 10/16/2018 Status: COMPLETED Source: [facility] 8:17 AM CLINIC OTHER CAMPUS REPOSITORY HNO ID: [id number] Author: Rohit Omer Service: General Surgery Author Type: Physician Type: Progress Notes Filed: 10/16/2018 12:22 PM Note Text: Trauma Surgery Progress Note SERVICE DATE: 10/16/2018 SUBJECTIVE: No reported events overnight. No pain, numbness, weakness, pain or complaints. Woke up immediately and was appropriately conversational, mostly wanted to talk about how much she hated her c-collar. Tolerating diet DIET NPO OBJECTIVE: Vitals: Temp (24hrs), Av.8 ?C (98.2 ?F), Min:36.7 ?C (98.1 ?F), Max:36.8 ?C (98.2 ?F) BP 118/53 Pulse 60 Temp 36.7 ?C (98.1 ?F) Resp 17 Ht 165.1 cm (5' 5) Wt 115.8 kg (255 lb 4.7 oz) SpO2 96% BMI 42.48 kg/m? O2 Therapy: Room Air IANDO: Date 10/15/18 07 - 10/16/18 0659 10/16/18 07 - 10/17/18 0659 Shift 9408-9813 9131-9162 4532-8910 24 Hour Total 0313-1704 4082-0787 8620-5586 24 Hour Total I N T A K E IV 248 253 373 9343 172 172 D5 NS 248 248 NS 0.9% 395 532 8824 172 172 Levetiracetam IV 100 100 Shift Total 248 801 345 0891 172 172 O U T P U T Urine 800 1000 1800 Urine Incontinence/Not Saved 1 x 1 x Tube Output ( External Urinary Drain 11/20/18 1205 Assessment) 800 1000 1800 Shift Total 800 1000 1800 Weight (kg) 117.2 115.8 115.8 115.8 115.8 115.8 115.8 115.8 MEDICATIONS Current Facility-Administered Medications: NaCl 0.9% iv infusion 75 mL/hr INTRAVENOUS CONTINUOUS levETIRAcetam iv piggyback 1,000 mg in NaCl (iso-osmotic) 100 mL (KEPPRA) 1,000 mg INTRAVENOUS BID prochlorperazine 10 mg injection (COMPAZINE) 10 mg INTRAVENOUS q 6 H PRN dextrose 40 % 15 g 15 g ORAL PRN Or glucagon 1 mg injection (GLUCAGEN) 1 mg INTRAMUSCULAR PRN Or dextrose 50% in water 25 mL syringe 12.5 g INTRAVENOUS PRN insulin regular human injection (short acting) (NovoLIN R,HumuLIN R) SUBCUTANEOUS q 6 H acetaminophen 1,000 mg tab(s) (TYLENOL) 1,000 mg ORAL q 6 H PRN metoprolol succinate ER 50 mg tab(s) (TOPROL XL) 50 mg ORAL DAILY Ferrous Gluconate 324 mg tab(s) (FERGON) 324 mg ORAL BID w MEALS pantoprazole DR 40 mg tab(s) (PROTONIX) 40 mg ORAL DAILY sertraline 100 mg tab(s) (ZOLOFT) 100 mg ORAL BID potassium chloride 80-120 mEq oral liquid 80-120 mEq ORAL/FEEDING TUBE PRN potassium chloride iv piggyback 20 mEq/100 mL 20 mEq INTRAVENOUS PRN magnesium sulfate in water 2 g in sterile water 50 ml 2 g INTRAVENOUS PRN sodium glycerophosphate 45 mmol in NaCl 0.9% 250 mL (GLYCOPHOS) 45 mmol INTRAVENOUS PRN calcium gluconate 4 g in NaCl 0.9% 250 mL 4 g INTRAVENOUS PRN ondansetron 4 mg tab(s) (ZOFRAN) 4 mg ORAL q 6 H PRN Or ondansetron (PF) 4 mg injection (ZOFRAN) 4 mg INTRAVENOUS q 6 H PRN lithium carbonate ER 450 mg tab(s) 450 mg ORAL DAILY lithium carbonate ER 900 mg tab(s) 900 mg ORAL AT BEDTIME Labs: Recent Labs 10/16/18 0430 10/15/18 0315 10/13/18 1728 NA 137 140 < > 139 K 4.8 3.8 < > 4.0 CHLOR 109* 109* < > 106 CO2 23 24 < > 26 BUN 9 8 < > 11 CREAT 0.49* 0.57 < > 0.53 GLUC 142* 165* < > 156* ANION 10 11 < > 11 CA 8.8 9.0 < > 9.8 MG 2.0 2.1 < > -- P 3.6 3.0 < > -- ALB -- -- -- 4.3 AST -- -- -- 30 ALT -- -- -- 28 ALKPHOS -- -- -- 131* TBILI -- -- -- 0.6 WBC 5.33 5.57 < > 6.23 HB 11.4 11.2 < > 12.2 HCT 35.9 35.3 < > 37.6 PLT 106* 109* < > 113* INR -- -- -- 1.02 < > = values in this interval not displayed. Exam: GENERAL: No distress, alert NEURO: CN II-XII grossly intact HEENT: normocephalic, atraumatic, c-collar in place LUNGS: Unlabored breathing on RA CARDIAC: Regular rate and rhythm ABDOMEN: Soft, non-tender, non-distended EXTREMITIES: MANLEY ASSESSMENT AND PLAN: Active Hospital Problems Diagnosis Date Noted - SDH (subdural hematoma) ([facility]) 10/14/2018 - Midline shift of brain due to hematoma 10/14/2018 - Fall 10/14/2018 - TBI (traumatic brain injury) ([facility]) 10/14/2018 - ICH (intracerebral hemorrhage) ([facility]) 10/13/2018 - Type 2 diabetes mellitus without complication ([facility]) 01/08/2012 58 year old female s/p GLF with L SDH with R shift -await speech therapy recommendations -pain control -NPO -possibly clear collar today? -glucose control -neuro checks -keppra -nsurg input I saw and evaluated the patient. Discussed with the resident and agree with resident's findings and plan as documented in the resident's note. Patient is awake alert and oriented. We have or able to clear her C-spine today. Neurosurgery has signed off. We'll start her on a diet and transfer her to the floor if okay with SICU. Trauma Service Pager: For questions or concerns Mon-Fri 6a-5p please page [phone]. After 5pm and on Weekends and Holidays, please page [phone] if in ICU or [phone] if on RNF. William Gutierrez MD 10/16/2018 8:20 AM PROGRESS Observed: 10/16/2018 Status: COMPLETED Source: [place] 5:[address] [facility] OTHER CAMPUS REPOSITORY O ID: [id number] Author: Yandel Reyes Service: ADT-SICU Author Type: Physician Type: Progress Notes Filed: 10/16/2018 2:00 PM Note Text: INPATIENT SICU PROGRESS NOTE SERVICE DATE: 10/16/2018 SERVICE TIME: 5:09 AM Subjective NAEON. Patient was awake, talking, and cooperative at bedside. Patient says that she has a headache but is feeling better otherwise. She is looking forward to going home. Current hospital medications: NaCl 0.9% iv infusion 75 mL/hr INTRAVENOUS CONTINUOUS levETIRAcetam iv piggyback 1,000 mg in NaCl (iso-osmotic) 100 mL (KEPPRA) 1,000 mg INTRAVENOUS BID prochlorperazine 10 mg injection (COMPAZINE) 10 mg INTRAVENOUS q 6 H PRN dextrose 40 % 15 g 15 g ORAL PRN glucagon 1 mg injection (GLUCAGEN) 1 mg INTRAMUSCULAR PRN dextrose 50% in water 25 mL syringe 12.5 g INTRAVENOUS PRN insulin regular human injection (short acting) (NovoLIN R,HumuLIN R) SUBCUTANEOUS q 6 H acetaminophen 1,000 mg tab(s) (TYLENOL) 1,000 mg ORAL q 6 H PRN metoprolol succinate ER 50 mg tab(s) (TOPROL XL) 50 mg ORAL DAILY Ferrous Gluconate 324 mg tab(s) (FERGON) 324 mg ORAL BID w MEALS pantoprazole DR 40 mg tab(s) (PROTONIX) 40 mg ORAL DAILY sertraline 100 mg tab(s) (ZOLOFT) 100 mg ORAL BID potassium chloride 80-120 mEq oral liquid 80-120 mEq ORAL/FEEDING TUBE PRN potassium chloride iv piggyback 20 mEq/100 mL 20 mEq INTRAVENOUS PRN magnesium sulfate in water 2 g in sterile water 50 ml 2 g INTRAVENOUS PRN sodium glycerophosphate 45 mmol in NaCl 0.9% 250 mL (GLYCOPHOS) 45 mmol INTRAVENOUS PRN calcium gluconate 4 g in NaCl 0.9% 250 mL 4 g INTRAVENOUS PRN ondansetron 4 mg tab(s) (ZOFRAN) 4 mg ORAL q 6 H PRN ondansetron (PF) 4 mg injection (ZOFRAN) 4 mg INTRAVENOUS q 6 H PRN lithium carbonate ER 450 mg tab(s) 450 mg ORAL DAILY lithium carbonate ER 900 mg tab(s) 900 mg ORAL AT BEDTIME Objective VITAL SIGNS BP 123/61 Pulse 52 Temp (Src) 98.2 (Temporal Artery) Resp 18 Ht 5' 5 (1.65m) Wt 255 lb 4.7 oz (115.8kg) SpO2 93% BMI 42.48 kg/(m2). Temp (24hrs), Av.7 ?C (98.1 ?F), Min:36.6 ?C (97.9 ?F), Max:36.8 ?C (98.2 ?F) Date 10/15/18 07 - 10/16/18 0659 10/16/18 07 - 10/17/18 0659 Shift 9970-3213 5665-3404 9302-6742 24 Hour Total 8821-5325 1807-9353 1249-1579 24 Hour Total I N T A K E IV 494 787 3539 D5 NS 248 248 NS 0.9% 783 783 Levetiracetam IV 100 100 Shift Total 364 462 9293 O U T P U T Urine 800 1000 1800 Tube Output ( External Urinary Drain 10/14/18 1205 Assessment) 800 1000 1800 Shift Total 800 1000 1800 Weight (kg) 117.2 115.8 115.8 115.8 115.8 115.8 115.8 115.8 PHYSICAL EXAM: GENERAL: Alert, no distress, cooperative SKIN: Skin color, texture, turgor normal. No rashes or lesions. LUNGS: Room Air on Liters: 2 sating at SpO2: 93 % CARDIAC: Regular rate and rhythm ABDOMEN: soft, nontender, nondistended EXTREMITIES: ROM of all joint grossly normal: strength grossly normal bilaterally. No deformities noted. NEURO: A/Ox2, patient unable to name year DATA: Diagnostic tests reviewed for today's visit: Recent Labs 10/16/18 0430 10/15/18 0315 10/14/18 0349 10/13/18 1728 CREAT 0.49* 0.57 0.44* 0.53 BUN 9 8 9 11 NA 137 140 142 139 K 4.8 3.8 4.0 4.0 CHLOR 109* 109* 111* 106 CO2 23 24 25 26 ANION 10 11 10 11 GLUC 142* 165* 241* 156* CA 8.8 9.0 9.0 9.8 P 3.6 3.0 3.9 -- MG -- 2.1 2.2 -- ALB -- -- -- 4.3 AST -- -- -- 30 ALT -- -- -- 28 ALKPHOS -- -- -- 131* TBILI -- -- -- 0.6 WBC 5.33 5.57 5.37 6.23 HB 11.4 11.2 10.8* 12.2 HCT 35.9 35.3 34.1 37.6 PLT 106* 109* 100* 113* Assessment/Plan This is a 58 year old female with left subdural hematoma with midline shift ACTIVE PROBLEM LIST Type 2 Diabetes Mellitus Without Complication (Hcc) Hypertension Bipolar Affective Disorder (Hcc) Morbid Obesity (Hcc) Fatty Liver Paroxysmal Atrial Fibrillation (Hcc) History of Colonic Polyps Obstructive Sleep Apnea (Adult) (Pediatric) Gerd (Gastroesophageal Reflux Disease) Urge Incontinence Positive Maty (Antinuclear Antibody) Iron Deficiency Anemia Anemia Obesity, Class III, BMI >= 40 Ich (Intracerebral Hemorrhage) (Hcc) Sdh (Subdural Hematoma) (Hcc) Midline Shift of Brain Due to Hematoma Fall Tbi (Traumatic Brain Injury) (Hcc) Feeding: Diet NPO pending swallow eval Analgesia/sedation: IV or PO PRN Tylenol 1000mg Q6H PRN Volume status: - NS 75ml/hr Intake/Output Summary (Last 24 hours) at 10/16/18 0512 Last data filed at 10/16/18 0000 Gross per 24 hour Intake 1131 ml Output 1800 ml Net -869 ml Net I/O: -836.6 Cr: 0.49 BUN: 9 NA: 137 K: 4.8 GFR: >60 OT/PT weight bearing status: Bedrest- Bedpain HOB >30 Respiratory status/vent weanin% on RA Infection: WBC: 5.33, 5.57, 5.37 No issues Transfusion: HGB: 11.4, 11.2, 10.8 None Embolic prophylaxis: SCDs Tubes lines and drains: Lines, Drains, and Airways Line Peripheral 10/13/18 1728 Short Right Antecubital 16 Gauge 2 days Peripheral 11/21/18 0600 Short Right Wrist 20 Gauge less than 1 day Drain External Urinary Drain 10/14/18 1205 Assessment 1 day Heart/CV AND home medications: Metoprolol ER 50mg QD Ulcer prophylaxis: Pantoprazole 40mg PO Glycemic control: Glycemic control Adequate Gluc- 142, 165, 241 Spines, statins and special medications, need for Restraints: VTA PPx: SCDs, chemoppx contraindicated GI Prophylaxis: Yes Head of Bed > 30 degrees: Yes Are pain needs met? Yes Skin integrity: Skin Intact and Preventative Measures Implemented Disposition: Transfer to floor vs. Discharge if ok with primary team SICU Service Pager: For questions or concerns Mon-Sat 6a-5p please page [phone]. After 5pm and on Weekends and Holidays, please page [phone]. SIGNATURE: oJrge Estrada MD PATIENT NAME: Elli Guerrero DATE: October 16, 2018 TIME: 5:09 AM PAGER: above Attending Note I evaluated the patient and personally participated in the de santiago components. I agree with the resident's findings and plan as documented and have discussed the case and management of the patient's care with the resident. Diet cleared with speech Dysphagia level 3 after speech evaluation Pain controlled with tylenol, on home lithium, zoloft; melatonin at night HLIV, resume home diuretic May require OT/PT evaluation with progressive mobility IS, pulm toilet, no active respiratory issues No abx, no transfusion, no perez PIV only Continue home metoprolol, occasional bradycardia but without hypotension or other symptoms Continue home PPI Resume home metformin this afternoon and add amaryl tomorrow morning. Resume home plaquenil Keppra PO to complete 7 day course. Spines clear Appropriate for transfer to floor Yandel Reyes MD Department of General Surgery Section of Trauma, Surgery Critical Care, and Acute Care Surgery IONIZED CALCIUM Collected: 10/16/2018 Status: F Source: [facility] 4:30 AM HEALTH SYSTEM REPOSITORY TYPE CODE TESTS RESULT OUT OF REFERENCE UNITS RANGE LAB CAION(LOINC 4.43-4.93 mg/dL ) Low Ionized 4.40 Calcium LAB PHCAI(LOINC 7.320-7.420 ) pH 7.404 LAB CAPH(LOINC) 4.36-4.73 mg/dL Ionized 4.41 Ca,PH7.4 Performed By: #### IONCA #### [facility] [address] [place] [address] HEMOGRAM Collected: 10/16/2018 Status: F Source: [facility] 4:30 AM HEALTH SYSTEM REPOSITORY TYPE CODE TESTS RESULT OUT OF REFERENCE UNITS RANGE LAB WBC(LOINC) 3.98-10.04 thou/cmm WBC 5.33 LAB RBC(LOINC) 3.93-5.22 mil/cmm Low RBC 3.90 LAB HGB(LOINC) 11.2-15.7 g/dL Hgb 11.4 LAB HCT(LOINC) 34.1-44.9 % Hct 35.9 LAB MCV(LOINC) 79.4-94.8 fl MCV 92.1 LAB MCH(LOINC) 25.6-32.2 pg MCH 29.2 LAB MCHC(LOINC) 31.6-34.8 % MCHC 31.8 LAB RDW(LOINC) 11.7-14.4 % RDW 13.8 LAB RDWSD(LOINC 36.4-46.3 fl ) High RDW SD 46.5 LAB PLT(LOINC) 182-369 thou/cmm Low Platelet 106 LAB MPV(LOINC) 9.4-12.3 fl MPV 9.6 Performed By: #### CBC1 #### [facility] [address] [address] BASIC PANEL Collected: 10/16/2018 Status: F Source: [facility] 4:30 AM HEALTH SYSTEM REPOSITORY TYPE CODE TESTS RESULT OUT OF REFERENCE UNITS RANGE LAB NA(LOINC) 136-145 mEq/L Sodium Blood 137 LAB K(LOINC) 3.5-5.1 mEq/L Potassium Blood 4.8 Result Comment: SPECIMEN HEMOLYZED LAB CL(LOINC) 98-107 mEq/L Chloride High Blood 109 LAB CO2(LOINC) 21-32 mEq/L CO2 Blood 23 LAB GLU(LOINC) 70-99 mg/dL Glucose High Blood 142 LAB BUN(LOINC) 7-18 mg/dL BUN Blood 9 LAB CREA(LOINC) 0.51-0.95 mg/dL Creatinine Low Blood 0.49 LAB CA(LOINC) 8.5-10.1 mg/dL Calcium Blood 8.8 LAB ANGAP(LOINC) 8-16 Anion Gap 10 Performed By: #### P8 #### [facility] [address] [place], [place] [address] PHOSPHORUS BLOOD Collected: 10/16/2018 Status: F Source: [facility] 4:30 AM HEALTH SYSTEM REPOSITORY TYPE CODE TESTS RESULT OUT OF REFERENCE UNITS RANGE LAB PHOS(LOINC 2.5-4.9 mg/dL ) Phosphorus Blood 3.6 Performed By: #### PHOS #### [facility] [address] [place] [address] MAGNESIUM BLOOD Collected: 10/16/2018 Status: F Source: [facility] 4:30 AM HEALTH SYSTEM REPOSITORY TYPE CODE TESTS RESULT OUT OF REFERENCE UNITS RANGE LAB MAG(LOINC) 1.6-2.6 mg/dL Magnesium Blood 2.0 Performed By: #### MAG #### [facility] [address] [place] [address] NURSING PROG Observed: 10/15/2018 Status: COMPLETED Source: [place] 1:54 PM [facility] REPOSITORY HNO ID: [id number] Author: Palmira HenriquezRn) ANDREI Jimenez Service: Nursing Author Type: Registered Nurse Type: Nursing Progress Note Filed: 10/15/2018 1:58 PM Note Text: Pt was very minimally responsive throughout the day. RN spoke with SE[employer]ONING SPRAYER re concern and need to address. CT was ordered and then cancelled by sicu resident. RN brought pt back and settled her in. RN returned to room less than an hour later and pt was wide awake, speaking to family, on phone showing pictures of her dog to staff. PROGRESS Observed: 10/15/2018 Status: COMPLETED Source: [place] 9:30 AM [facility] REPOSITORY HNO ID: [id number] Author: Evita Celis Service: Neurosurgery Author Type: Nurse Practitioner Type: Progress Notes Filed: 10/15/2018 4:17 PM Note Text: Neurosurgery Inpatient Progress Note Attending: Dr. Milagro Fan Location: [id number]/[facility]-320* Hospital Day: 3 ASSESSMENT/ PLAN: ICH - continue neuro assessments - serial CT x 3 stable - Repeat CT with neuro change - No surgical intervention necessary. - Neurosurgery will sign off at this time, please call with any questions or concerns. - F/u with CT and Dr. Schmidt in 4-6 weeks, appointment will be arranged with office. INTERVAL HPI (Subjective): is a 58 year old female who was transferred from [facility] via EMS s/p fall and hitting head on counter with no LOC. Went about her day and came to hospital with RODRIGUEZ, she was then transferred here. Patient very drowsy, difficult to arouse, sternal rub to get her to respond, not answering any questions except her name and date. Will not open her eyes. Following minimal commands. MEDICATIONS: Current hospital medications: NaCl 0.9% iv infusion 75 mL/hr INTRAVENOUS CONTINUOUS levETIRAcetam iv piggyback 1,000 mg in NaCl (iso-osmotic) 100 mL (KEPPRA) 1,000 mg INTRAVENOUS BID prochlorperazine 10 mg injection (COMPAZINE) 10 mg INTRAVENOUS q 6 H PRN dextrose 40 % 15 g 15 g ORAL PRN glucagon 1 mg injection (GLUCAGEN) 1 mg INTRAMUSCULAR PRN dextrose 50% in water 25 mL syringe 12.5 g INTRAVENOUS PRN insulin regular human injection (short acting) (NovoLIN R,HumuLIN R) SUBCUTANEOUS q 6 H acetaminophen 1,000 mg tab(s) (TYLENOL) 1,000 mg ORAL q 6 H PRN metoprolol succinate ER 50 mg tab(s) (TOPROL XL) 50 mg ORAL DAILY Ferrous Gluconate 324 mg tab(s) (FERGON) 324 mg ORAL BID w MEALS pantoprazole DR 40 mg tab(s) (PROTONIX) 40 mg ORAL DAILY sertraline 100 mg tab(s) (ZOLOFT) 100 mg ORAL BID potassium chloride 80-120 mEq oral liquid 80-120 mEq ORAL/FEEDING TUBE PRN potassium chloride iv piggyback 20 mEq/100 mL 20 mEq INTRAVENOUS PRN magnesium sulfate in water 2 g in sterile water 50 ml 2 g INTRAVENOUS PRN sodium glycerophosphate 45 mmol in NaCl 0.9% 250 mL (GLYCOPHOS) 45 mmol INTRAVENOUS PRN calcium gluconate 4 g in NaCl 0.9% 250 mL 4 g INTRAVENOUS PRN ondansetron 4 mg tab(s) (ZOFRAN) 4 mg ORAL q 6 H PRN ondansetron (PF) 4 mg injection (ZOFRAN) 4 mg INTRAVENOUS q 6 H PRN lithium carbonate ER 450 mg tab(s) 450 mg ORAL DAILY lithium carbonate ER 900 mg tab(s) 900 mg ORAL AT BEDTIME REVIEW OF SYSTEMS: Review of Systems: laura d/t patients mental status. OBJECTIVE: LABS: CBC: Recent Labs 10/15/1831410/14/1834810/13/18 1728 10/09/18 1652 WBC 5.57 5.37 6.23 -- HB 11.2 10.8* 12.2 -- HCT 35.3 34.1 37.6 -- PLT 109* 100* 113* 125* MCV 91.5 91.9 90.0 -- COAG: Recent Labs 10/13/18 172 APTT 28.4 INR 1.02 BMP: Recent Labs 10/15/1831410/14/1834810/13/18 172 GLUC 165* 241* 156* NA 140 142 139 K 3.8 4.0 4.0 CHLOR 109* 111* 106 CO2 24 25 26 ANION 11 10 11 BUN 8 9 11 CREAT 0.57 0.44* 0.53 CHEM: Recent Labs 10/15/1831410/14/1834810/13/18 1728 ALB -- -- 4.3 TPROT -- -- 8.3* CA 9.0 9.0 9.8 MG 2.1 2.2 -- HEPATIC: Recent Labs 10/13/18 1728 ALKPHOS 131* ALT 28 AST 30 TBILI 0.6 LIPASE 156 URINALYSIS: Recent Labs 10/13/18 1825 SPGR 1.018 UGLUC >=1000* UBILI NEGATIVE UKET NEGATIVE UPROT NEGATIVE UROBIL 1.0 UWBC 0.2 LEUKEST NEGATIVE Estimated Creatinine Clearance: 136.1 mL/min (based on SCr of 0.57 mg/dL). VITAL SIGNS 24 HOUR REVIEW: 10/15/18 0954 10/15/18 1139 10/15/18 1200 10/15/18 1338 BP: 121/58 114/55 118/60 117/52 Pulse: (!) 56 (!) 50 (!) 52 (!) 57 Resp: Temp: TempSrc: SpO2: 99% 94% 94% 95% Weight: Height: Intake/Output Summary (Last 24 hours) at 10/15/18 1604 Last data filed at 10/15/18 1300 Gross per 24 hour Intake 723.7 ml Output 1800 ml Net -1076.3 ml ALLERGIES: ALLERGIES No Known Allergies DATA REVIEW [facility] records reviewed CT Brain Radiologists impression 1. ?No change in the density, volume or morphology of the extra-axial hemorrhage in the left temporal-occipital region which measures 15 mm transverse on coronal image 29, unchanged. ?Mass effect on the subjacent cortex, unchanged. ? 2. ?No change in subdural hemorrhage extends along the left side of tentorium and posterior interhemispheric fissure. ? 3.Small volume of right cerebral convexity extra-axial hemorrhage in the right parietal region on coronal image 29 which measures 3 mm maximum, unchanged NEUROLOGICAL EXAM: AANDO to name and date, not answering any other orientation questions, drowsy aroused by sternal rub PERLLA 3 mm reactive. Face symmetric Following simple commands, squeezing and pushing/ pulling MANLEY x 4 4/5 in b/l upper and lower extremities. SIGNATURE: Evita Celis APRN.LINING FOLDER PATIENT NAME: Elli Guerrero DATE: 10/15/2018 TIME: 4:04 PM PAGER: [phone] PROGRESS Observed: 10/15/2018 Status: COMPLETED Source: [place] 5:24 AM CL[facility]IC OTHER CAMPUS REPOSITORY O ID: [id number] Author: Cheryle Smith Service: ADT-SICU Author Type: Physician Type: Progress Notes Filed: 10/15/2018 11:40 AM Note Text: INPATIENT SICU PROGRESS NOTE SERVICE DATE: 10/15/2018 SERVICE TIME: 5:25 AM Subjective Patient was drowsy throughout the day and overnight. She was not give any narcotics in the past 24 hours. She would intermittently take off her C-collar. At bedside, she was sleeping. She was not easily aroused. I had to sternal rub the patient in order for her to tell me that she was awake. Patient would only move her lips or not give an answer when asked about name, location, date. Patient would not follow commands. Patient would not open eyes. Current hospital medications: prochlorperazine 10 mg injection (COMPAZINE) 10 mg INTRAVENOUS q 6 H PRN dextrose 40 % 15 g 15 g ORAL PRN glucagon 1 mg injection (GLUCAGEN) 1 mg INTRAMUSCULAR PRN dextrose 50% in water 25 mL syringe 12.5 g INTRAVENOUS PRN insulin regular human injection (short acting) (NovoLIN R,HumuLIN R) SUBCUTANEOUS q 6 H levETIRAcetam 1,000 mg oral liquid (KEPPRA) 1,000 mg ORAL BID acetaminophen 1,000 mg tab(s) (TYLENOL) 1,000 mg ORAL q 6 H PRN metoprolol succinate ER 50 mg tab(s) (TOPROL XL) 50 mg ORAL DAILY Ferrous Gluconate 324 mg tab(s) (FERGON) 324 mg ORAL BID w MEALS pantoprazole DR 40 mg tab(s) (PROTONIX) 40 mg ORAL DAILY sertraline 100 mg tab(s) (ZOLOFT) 100 mg ORAL BID potassium chloride 80-120 mEq oral liquid 80-120 mEq ORAL/FEEDING TUBE PRN potassium chloride iv piggyback 20 mEq/100 mL 20 mEq INTRAVENOUS PRN magnesium sulfate in water 2 g in sterile water 50 ml 2 g INTRAVENOUS PRN sodium glycerophosphate 45 mmol in NaCl 0.9% 250 mL (GLYCOPHOS) 45 mmol INTRAVENOUS PRN calcium gluconate 4 g in NaCl 0.9% 250 mL 4 g INTRAVENOUS PRN ondansetron 4 mg tab(s) (ZOFRAN) 4 mg ORAL q 6 H PRN ondansetron (PF) 4 mg injection (ZOFRAN) 4 mg INTRAVENOUS q 6 H PRN lithium carbonate ER 450 mg tab(s) 450 mg ORAL DAILY lithium carbonate ER 900 mg tab(s) 900 mg ORAL AT BEDTIME Objective VITAL SIGNS BP 100/42 Pulse 58 Temp (Src) 98.2 (Temporal Artery) Resp 21 Ht 5' 5 (1.65m) Wt 258 lb 6.1 oz (117.2kg) SpO2 97% BMI 43.00 kg/(m2). Temp (24hrs), Av.6 ?C (97.8 ?F), Min:36.2 ?C (97.2 ?F), Max:36.8 ?C (98.2 ?F) Date 10/14/18699 - 10/15/1865810/15/18699 - 10/16/18 0659 Shift 0097-3967 9218-1609 3441-8707 24 Hour Total 2715-4269 0099-4042 1534-3092 24 Hour Total I N T A K E PO 60 80 140 PO 60 80 140 IV 909 118.4 1027.4 D5 NS 809 118.4 927.4 Levetiracetam IV 100 100 Shift Total 969 198.4 1167.4 O U T P U T Urine 800 395 810 9872 Urine Incontinence/Not Saved 1 x 1 x Tube Output ([REMOVED] Indwelling Urinary Catheter 10/13/18 Perez 16 Fr 10/14/18 1202) 800 800 Tube Output ( External Urinary Drain 10/14/18 1205 Assessment) 600 200 800 Shift Total 800 195 495 3557 Weight (kg) 116.4 117.2 117.2 117.2 117.2 117.2 117.2 117.2 PHYSICAL EXAM: GENERAL: Drowsy, difficult to arouse, would not answer questions SKIN: Skin color, texture, turgor normal. No rashes or lesions. LUNGS: on O2 Therapy: Nasal Cannula on Liters: 2 sating at SpO2: 97 %, regular rate CARDIAC: Regular rate and rhythm ABDOMEN: soft, nontender, nondistended EXTREMITIES: Deferred NEURO: Patient not following commands and not answering questions DATA: Diagnostic tests reviewed for today's visit: Recent Labs 10/15/18 0315 10/14/18 0349 10/13/18 1728 CREAT 0.57 0.44* 0.53 BUN 8 9 11 NA 140 142 139 K 3.8 4.0 4.0 CHLOR 109* 111* 106 CO2 24 25 26 ANION 11 10 11 GLUC 165* 241* 156* CA 9.0 9.0 9.8 P 3.0 3.9 -- MG 2.1 2.2 -- ALB -- -- 4.3 AST -- -- 30 ALT -- -- 28 ALKPHOS -- -- 131* TBILI -- -- 0.6 WBC 5.57 5.37 6.23 HB 11.2 10.8* 12.2 HCT 35.3 34.1 37.6 PLT 109* 100* 113* [place] 0.6 Phos 3.0 Ma.1 Ionized Ca: 5.03, ph7.4: 4.96 This is a 58 year old female with subdural hematoma with midline shift ACTIVE PROBLEM LIST Type 2 Diabetes Mellitus Without Complication (Hcc) Hypertension Bipolar Affective Disorder (Hcc) Morbid Obesity (Hcc) Fatty Liver Paroxysmal Atrial Fibrillation (Hcc) History of Colonic Polyps Obstructive Sleep Apnea (Adult) (Pediatric) Gerd (Gastroesophageal Reflux Disease) Urge Incontinence Positive Maty (Antinuclear Antibody) Iron Deficiency Anemia Anemia Obesity, Class III, BMI >= 40 Ich (Intracerebral Hemorrhage) (Hcc) Sdh (Subdural Hematoma) (Hcc) Midline Shift of Brain Due to Hematoma Fall Tbi (Traumatic Brain Injury) (Hcc) Neuro: - Pain Control: tylenol 1000mg Q6H - Sedation: None - Seizure ppx: Keppra 1000mg BID - Neurochecks Q1H - Cervical collar until able to clear C-spine - CT Head w/o Contrast 10/14/2018: No interval change - [place] blood: 0.6 CV: - tele - EKG if active arrythmia - stable Resp: - on O2 Therapy: 2L Nasal Cannula GI: - DIET CARBOHYDRATE CONTROLLED - GI ppx: Protonix Renal: - Monitor I/Os - replete lytes prn - Daily BMP - IV fluids due to poor PO intake Intake/Output Summary (Last 24 hours) at 10/14/18 0659 Last data filed at 10/14/18 0530 Gross per 24 hour Intake 1167.4 ml Output 1600 ml Net -432.6 ml Urine: 1600 cc PO 150 cc IV 1027.4 cc 1 incontinent BM Heme: - HGB - 11.2, 10.8, 12.2 Endo: - GLU - 165, 241, 156 - ISS, POC Gluc Q6H ID: - WBC - 5.57, 5.37, 6.23 - No concern for acute infection - Afebrile Ext: - DVT ppx: SCD, chemoprophylaxis contraindicated - GI ppx: PPI - Seizure ppx: Keppra Lines: Peripheral 10/13/18 1728 Short Right Antecubital 16 Gauge (Active) External Urinary Drain 10/14/18 1205 Assessment (Active) ] Consults: NS Dispo: - ICU Patient Checklist Deep vein thrombosis prophylaxis administered? No. Contraindicated.. Stress ulcer prophylaxis? No, not indicated.. Pain addressed? Yes. Nutrition: Enteral- No. TPN- No. PO- No. Restraints? No. Dispo needs assessed? Yes. SICU Service Pager: For questions or concerns Mon-Fri 6a-5p please page [phone]. After 5pm and on Weekends and Holidays, please page [phone]. Decrease mental status this morning. Will repeat CT head. Place [place] and start TF. Also for meds [place] level ok if low If CT head is Ok then consult neurology. I provided 35 minutes of critical care services which were necessary due to above specified injuries and illnesses. This patient has a high probability of sudden, clinical significant deterioration, which required the highest level of care and preparedness to intervene urgently. I managed and supervised life or organ supporting interventions that require frequent assessments. This time does not include time devoted to teaching and to any procedure I billed separately. I have personally seen and examined this patient and participated in the de santiago components of this encounter with the multi-disciplinary ICU team. I discussed the management of this case with the resident and reviewed/confirmed their documentation, attached or in separate note. I personally reviewed today's actual images, the associated image reports, and current labs. I supervised the ordering of additional testing, imaging, labs, and/or consultations. The patient and/or family were fully informed of the findings and plan of care. They had the opportunity to ask questions and raise any issues of concern, all of which were answered and dealt with by me to their stated satisfaction. The critical care treatment was mainly directed to address the following issues: Active Hospital Problems Diagnosis Date Noted - SDH (subdural hematoma) ([facility]) 10/14/2018 - Midline shift of brain due to hematoma 10/14/2018 - Fall 10/14/2018 - TBI (traumatic brain injury) ([facility]) 10/14/2018 - ICH (intracerebral hemorrhage) ([facility]) 10/13/2018 - Type 2 diabetes mellitus without complication ([facility]) 01/08/2012 Management included sedation, pain control and ventilation assessment including need for ventilator, weaning and/or extubation as indicated. Management of critical care illnesses are edited above by me, including system by system plan and are not only limited to infectious disease and tailoring the antibiotic therapy, nutrition assessment and supplementation, electrolyte correction and prevention of ICU related complications using ventilator bundle, sedation holiday and assessment and removal of lines and tubes where indicated. SIGNATURE: Cheryle Smith MD PATIENT NAME: Elli Guerrero DATE: October 15, 2018 TIME: 11:40 AM IONIZED CALCIUM Collected: 10/15/2018 Status: F Source: [facility] 3:15 AM HEALTH SYSTEM REPOSITORY TYPE CODE TESTS RESULT OUT OF REFERENCE UNITS RANGE LAB CAION(LOINC 4.43-4.93 mg/dL ) High Ionized 5.03 Calcium LAB PHCAI(LOINC 7.320-7.420 ) pH 7.373 LAB CAPH(LOINC) 4.36-4.73 mg/dL High Ionized 4.96 Ca,PH7.4 Performed By: #### IONCA #### [facility] [address] [id number] HEMOGRAM Collected: 10/15/2018 Status: F Source: [facility] 3:15 AM HEALTH SYSTEM REPOSITORY TYPE CODE TESTS RESULT OUT OF REFERENCE UNITS RANGE LAB WBC(LOINC) 3.98-10.04 thou/cmm WBC 5.57 LAB RBC(LOINC) 3.93-5.22 mil/cmm Low RBC 3.86 LAB HGB(LOINC) 11.2-15.7 g/dL Hgb 11.2 LAB HCT(LOINC) 34.1-44.9 % Hct 35.3 LAB MCV(LOINC) 79.4-94.8 fl MCV 91.5 LAB MCH(LOINC) 25.6-32.2 pg MCH 29.0 LAB MCHC(LOINC) 31.6-34.8 % MCHC 31.7 LAB RDW(LOINC) 11.7-14.4 % RDW 13.9 LAB RDWSD(LOINC 36.4-46.3 fl ) RDW SD 46.3 LAB PLT(LOINC) 182-369 thou/cmm Low Platelet 109 LAB MPV(LOINC) 9.4-12.3 fl MPV 9.8 Performed By: #### CBC1 #### [facility] [address] [address] BASIC PANEL Collected: 10/15/2018 Status: F Source: [facility] 3:15 AM HEALTH SYSTEM REPOSITORY TYPE CODE TESTS RESULT OUT OF REFERENCE UNITS RANGE LAB NA(LOINC) 136-145 mEq/L Sodium Blood 140 LAB K(LOINC) 3.5-5.1 mEq/L Potassium Blood 3.8 LAB CL(LOINC) 98-107 mEq/L Chloride High Blood 109 LAB CO2(LOINC) 21-32 mEq/L CO2 Blood 24 LAB GLU(LOINC) 70-99 mg/dL Glucose High Blood 165 LAB BUN(LOINC) 7-18 mg/dL BUN Blood 8 LAB CREA(LOINC 0.51-0.95 mg/dL ) Creatinine Blood 0.57 LAB CA(LOINC) 8.5-10.1 mg/dL Calcium Blood 9.0 LAB ANGAP(LOIN 8-16 C) Anion Gap 11 Performed By: #### P8 #### [facility] [address] [address] MAGNESIUM BLOOD Collected: 10/15/2018 Status: F Source: [facility] 3:15 AM HEALTH SYSTEM REPOSITORY TYPE CODE TESTS RESULT OUT OF REFERENCE UNITS RANGE LAB MAG(LOINC) 1.6-2.6 mg/dL Magnesium Blood 2.1 Performed By: #### MAG #### [facility] [address] [address] PHOSPHORUS BLOOD Collected: 10/15/2018 Status: F Source: [facility] 3:15 AM HEALTH SYSTEM REPOSITORY TYPE CODE TESTS RESULT OUT OF REFERENCE UNITS RANGE LAB PHOS(LOINC 2.5-4.9 mg/dL ) Phosphorus Blood 3.0 Performed By: #### PHOS #### [place] [address] LITHIUM SERUM Collected: 10/14/2018 Status: F Source: [facility] 8:30 PM HEALTH SYSTEM REPOSITORY TYPE CODE TESTS RESULT OUT OF REFERENCE UNITS RANGE LAB LITH(LOINC) 0.6-1.2 mEq/L [place] Serum 0.6 Performed By: #### LITH #### [place] [address] NUTRITION Observed: 10/14/2018 Status: COMPLETED Source: [facility] 4:26 PM CLINIC OTHER CAMPUS REPOSITORY O ID: [id number] Author: Carolann Ortiz RD Service: Nutrition Therapy Author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 magnesium sulfate in water 2 g in sterile water 50 ml 2 g INTRAVENOUS PRN sodium glycerophosphate 45 mmol in NaCl 0.9% 250 mL (GLYCOPHOS) 45 mmol INTRAVENOUS PRN calcium gluconate 4 g in NaCl 0.9% 250 mL 4 g INTRAVENOUS PRN famotidine 20 mg injection (PEPCID) 20 mg INTRAVENOUS BID ondansetron 4 mg tab(s) (ZOFRAN) 4 mg ORAL q 6 H PRN ondansetron (PF) 4 mg injection (ZOFRAN) 4 mg INTRAVENOUS q 6 H PRN morphine 2-4 mg injection 2-4 mg INTRAVENOUS q 4 H PRN levETIRAcetam iv piggyback 1,000 mg in NaCl (iso-osmotic) 100 mL (KEPPRA) 1,000 mg INTRAVENOUS BID lithium carbonate ER 450 mg tab(s) 450 mg ORAL DAILY lithium carbonate ER 900 mg tab(s) 900 mg ORAL AT BEDTIME Objective VITAL SIGNS BP 107/48 Pulse 59 Temp (Src) 97.2 (Temporal Artery) Resp 18 Ht 5' 5 (1.65m) Wt 256 lb 9.9 oz (116.4kg) SpO2 91% BMI 42.70 kg/(m2). Temp (24hrs), Av.4 ?C (97.6 ?F), Min:36.2 ?C (97.2 ?F), Max:36.9 ?C (98.4 ?F) Date 10/13/18 07 - 10/14/18 0659 10/14/18 07 - 10/15/18 0659 Shift 7072-9637 0368-7872 7205-5226 24 Hour Total 2812-3143 3850-7410 4242-4507 24 Hour Total I N T A K E IV 612 691 4814 I.V. 100 100 D5 NS 922 922 Shift Total 407 663 4597 O U T P U T Urine 900 900 Tube Output ( Indwelling Urinary Catheter 10/13/18 Perez 16 Fr) 900 900 Shift Total 900 900 Weight (kg) 116.4 116.4 116.4 116.4 116.4 116.4 116.4 PHYSICAL EXAM: GENERAL: Drowsy, no distress, speaking softly at bedside, frequently dozes off SKIN: Skin color, texture, turgor normal. No rashes or lesions. LUNGS: 90% on 2L NC, regular rate CARDIAC: Regular rate and rhythm ABDOMEN: soft, nontender, nondistended EXTREMITIES: ROM of all joint grossly normal: strength grossly normal bilaterally. No deformities noted. NEURO: A/O x2, unable to correctly name president and year, [place] collar was off when first entering room, [place] collar in place now, intact finger to nose, neuro exam limited by poor cooperation secondary to drowsiness DATA: Diagnostic tests reviewed for today's visit: Recent Labs 10/14/18 0349 10/13/18 1728 CREAT 0.44* 0.53 BUN 9 11 NA 142 139 K 4.0 4.0 CHLOR 111* 106 CO2 25 26 ANION 10 11 GLUC 241* 156* CA 9.0 9.8 P 3.9 -- MG 2.2 -- ALB -- 4.3 AST -- 30 ALT -- 28 ALKPHOS -- 131* TBILI -- 0.6 WBC 5.37 6.23 HB 10.8* 12.2 HCT 34.1 37.6 PLT 100* 113* This is a 58 year old female with subdural hematoma with midline shift ACTIVE PROBLEM LIST Type 2 Diabetes Mellitus Without Complication (Hcc) Hypertension Bipolar Affective Disorder (Hcc) Morbid Obesity (Hcc) Fatty Liver Paroxysmal Atrial Fibrillation (Hcc) History of Colonic Polyps Obstructive Sleep Apnea (Adult) (Pediatric) Gerd (Gastroesophageal Reflux Disease) Urge Incontinence Positive Maty (Antinuclear Antibody) Iron Deficiency Anemia Anemia Obesity, Class III, BMI >= 40 Ich (Intracerebral Hemorrhage) (Hcc) Neuro: - Q1H neurochecks - Pain Control: morphine 2-4mg Q4H - Sedation: None - Seizure ppx: Keppra 1000mg BID - Repeat CT now due to AMS at bedside - C collar in place, maintain CV: - tele - EKG if active arrythmia - stable Resp: - on O2 Therapy: 2L NC sating at 91% - GI: - DIET NPO /IVF - GI ppx: Protonix 40mg Renal: - Monitor I/Os - Daily BMP - replete lytes prn Intake/Output Summary (Last 24 hours) at 10/14/18 0636 Last data filed at 10/14/18 0530 Gross per 24 hour Intake 1022 ml Output 900 ml Net 122 ml Heme: - HGB - 10.8, 12.2 -Daily CBC Endo: - GLU - 241, 156 - ISS, POC Gluc Q6H ID: - WBC - 5.37, 6.23 - No concern for acute infection - Afebrile Ppx: - DVT ppx: SCD, chemoprophylaxis contraindicated - GI ppx: PPI - Seizure ppx: Keppra Lines: Peripheral 10/13/18 1728 Short Right Antecubital 16 Gauge (Active) Peripheral 10/13/18 Left Antecubital 20 Gauge (Active) Indwelling Urinary Catheter 10/13/18 Perez 16 Fr (Active) ] Consults: NS Dispo: - ICU Patient Checklist Deep vein thrombosis prophylaxis administered? No. Contraindicated.. Stress ulcer prophylaxis? No, not indicated.. Pain addressed? Yes. Nutrition: Enteral- No. TPN- No. PO- No. Restraints? No. Dispo needs assessed? Yes. SICU Service Pager: For questions or concerns Mon-Sat 6a-5p please page [phone]. After 5pm and on Weekends and Holidays, please page [phone]. Stable repeat CT, was disoriented last night I provided 35 minutes of critical care services which were necessary due to above specified injuries and illnesses. This patient has a high probability of sudden, clinical significant deterioration, which required the highest level of care and preparedness to intervene urgently. I managed and supervised life or organ supporting interventions that require frequent assessments. This time does not include time devoted to teaching and to any procedure I billed separately. I have personally seen and examined this patient and participated in the de santiago components of this encounter with the multi-disciplinary ICU team. I discussed the management of this case with the resident and reviewed/confirmed their documentation, attached or in separate note. I personally reviewed today's actual images, the associated image reports, and current labs. I supervised the ordering of additional testing, imaging, labs, and/or consultations. The patient and/or family were fully informed of the findings and plan of care. They had the opportunity to ask questions and raise any issues of concern, all of which were answered and dealt with by me to their stated satisfaction. The critical care treatment was mainly directed to address the following issues: Active Hospital Problems Diagnosis Date Noted - ICH (intracerebral hemorrhage) (HCC) 10/13/2018 Management included sedation, pain control and ventilation assessment including need for ventilator, weaning and/or extubation as indicated. Management of critical care illnesses are edited above by me, including system by system plan and are not only limited to infectious disease and tailoring the antibiotic therapy, nutrition assessment and supplementation, electrolyte correction and prevention of ICU related complications using ventilator bundle, sedation holiday and assessment and removal of lines and tubes where indicated. SIGNATURE: Cheryle Smith MD PATIENT NAME: Elli Guerrero DATE: October 14, 2018 TIME: 10:33 AM PROGRESS Observed: 10/14/2018 Status: COMPLETED Source: [facility] 6:15 AM CLINIC OTHER CAMPUS REPOSITORY HNO ID: [id number] Author: Milagro Fan Service: Trauma Author Type: Physician Type: Progress Notes Filed: 10/14/2018 1:24 PM Note Text: Trauma Surgery Progress Note SERVICE DATE: 10/14/2018 SUBJECTIVE: AMS this am, patient confused. Sent for stat CT head Tolerating diet DIET NPO OBJECTIVE: Vitals: Temp (24hrs), Av.4 ?C (97.6 ?F), Min:36.2 ?C (97.2 ?F), Max:36.9 ?C (98.4 ?F) BP (!) 107/48 Pulse (!) 59 Temp 36.2 ?C (97.2 ?F) (Temporal Artery) Resp 18 Ht 165.1 cm (5' 5) Wt 116.4 kg (256 lb 9.9 oz) SpO2 91% BMI 42.70 kg/m? O2 Therapy: Room Air IANDO: Date 10/13/18699 - 10/14/1865810/14/18699 - 10/15/18 0659 Shift 8521-6775 9649-4071 7091-3355 24 Hour Total 7929-7722 4505-0928 6799-6848 24 Hour Total I N T A K E IV 937 655 0266 I.V. 100 100 D5 NS 922 922 Shift Total 256 047 9141 O U T P U T Urine 900 900 Tube Output ( Indwelling Urinary Catheter 10/13/18 Perez 16 Fr) 900 900 Shift Total 900 900 Weight (kg) 116.4 116.4 116.4 116.4 116.4 116.4 116.4 MEDICATIONS Current Facility-Administered Medications: prochlorperazine 10 mg injection (COMPAZINE) 10 mg INTRAVENOUS q 6 H PRN metoprolol succinate ER 50 mg tab(s) (TOPROL XL) 50 mg ORAL DAILY Ferrous Gluconate 324 mg tab(s) (FERGON) 324 mg ORAL BID w MEALS pantoprazole DR 40 mg tab(s) (PROTONIX) 40 mg ORAL DAILY sertraline 100 mg tab(s) (ZOLOFT) 100 mg ORAL BID dextrose 5% in NaCl 0.9% iv infusion 125 mL/hr INTRAVENOUS CONTINUOUS potassium chloride 80-120 mEq oral liquid 80-120 mEq ORAL/FEEDING TUBE PRN potassium chloride iv piggyback 20 mEq/100 mL 20 mEq INTRAVENOUS PRN magnesium sulfate in water 2 g in sterile water 50 ml 2 g INTRAVENOUS PRN sodium glycerophosphate 45 mmol in NaCl 0.9% 250 mL (GLYCOPHOS) 45 mmol INTRAVENOUS PRN calcium gluconate 4 g in NaCl 0.9% 250 mL 4 g INTRAVENOUS PRN famotidine 20 mg injection (PEPCID) 20 mg INTRAVENOUS BID ondansetron 4 mg tab(s) (ZOFRAN) 4 mg ORAL q 6 H PRN Or ondansetron (PF) 4 mg injection (ZOFRAN) 4 mg INTRAVENOUS q 6 H PRN morphine 2-4 mg injection 2-4 mg INTRAVENOUS q 4 H PRN levETIRAcetam iv piggyback 1,000 mg in NaCl (iso-osmotic) 100 mL (KEPPRA) 1,000 mg INTRAVENOUS BID lithium carbonate ER 450 mg tab(s) 450 mg ORAL DAILY lithium carbonate ER 900 mg tab(s) 900 mg ORAL AT BEDTIME Labs: Recent Labs 10/14/18 0349 10/13/18 1728 NA 142 139 K 4.0 4.0 CHLOR 111* 106 CO2 25 26 BUN 9 11 CREAT 0.44* 0.53 GLUC 241* 156* ANION 10 11 CA 9.0 9.8 MG 2.2 -- P 3.9 -- ALB -- 4.3 AST -- 30 ALT -- 28 ALKPHOS -- 131* TBILI -- 0.6 WBC 5.37 6.23 HB 10.8* 12.2 HCT 34.1 37.6 PLT 100* 113* INR -- 1.02 Exam: GENERAL: No distress, confused NEURO: CN II-XII grossly intact HEENT: normocephalic, atraumatic LUNGS: Unlabored breathing on RA CARDIAC: Regular rate and rhythm ABDOMEN: Soft, non-tender, non-distended EXTREMITIES: MANLEY SKIN: Skin color, texture, turgor normal, No rashes or lesions ASSESSMENT AND PLAN: Active Hospital Problems Diagnosis Date Noted - SDH (subdural hematoma) ([facility]) 10/14/2018 - Midline shift of brain due to hematoma 10/14/2018 - Fall 10/14/2018 - TBI (traumatic brain injury) ([facility]) 10/14/2018 - ICH (intracerebral hemorrhage) ([facility]) 10/13/2018 - Type 2 diabetes mellitus without complication ([facility]) 01/08/2012 58 year old female s/p GLF with L SDH with R shift - NPO/IVF - Rpt CT Head 10/13 left SDH unchanged, posterior fissure SDH slightly worse, no shift - CT Head rpt p this am - NSx recs: keppra - C collar - Hold A/C Trauma Service Pager: For questions or concerns Mon-Fri 6a-5p please page [phone]. After 5pm and on Weekends and Holidays, please page [phone] if in ICU or [phone] if on RNF. SIGNATURE: Rand Chen MD PATIENT NAME: Elli Guerrero DATE: October 14, 2018 TIME: 6:15 AM Pager: [phone] Attending Note As above Lethargic but arousable and follows command Moves all [address] stable Cont Keppra Diet PT/OT Neuro checks I evaluated the patient and personally participated in the de santiago components. I agree with the resident's findings and plan as documented and have discussed the case and management of the patient's care with the resident. Signature: Milagro Fan MD Date: 10/14/2018 Time: 1:23 PM IONIZED CALCIUM Collected: 10/14/2018 Status: F Source: [facility] 3:49 AM HEALTH SYSTEM REPOSITORY TYPE CODE TESTS RESULT OUT OF REFERENCE UNITS RANGE LAB CAION(LOINC 4.43-4.93 mg/dL ) Ionized 4.76 Calcium LAB PHCAI(LOINC 7.320-7.420 ) pH 7.348 LAB CAPH(LOINC) 4.36-4.73 mg/dL Ionized 4.64 Ca,PH7.4 Performed By: #### IONCA #### [facility] [address] [address] HEMOGRAM Collected: 10/14/2018 Status: F Source: [facility] 3:49 AM HEALTH SYSTEM REPOSITORY TYPE CODE TESTS RESULT OUT OF REFERENCE UNITS RANGE LAB WBC(LOINC) 3.98-10.04 thou/cmm WBC 5.37 LAB RBC(LOINC) 3.93-5.22 mil/cmm Low RBC 3.71 LAB HGB(LOINC) 11.2-15.7 g/dL Low Hgb 10.8 LAB HCT(LOINC) 34.1-44.9 % Hct 34.1 LAB MCV(LOINC) 79.4-94.8 fl MCV 91.9 LAB MCH(LOINC) 25.6-32.2 pg MCH 29.1 LAB MCHC(LOINC) 31.6-34.8 % MCHC 31.7 LAB RDW(LOINC) 11.7-14.4 % RDW 13.9 LAB RDWSD(LOINC 36.4-46.3 fl ) High RDW SD 47.1 LAB PLT(LOINC) 182-369 thou/cmm Low Platelet 100 LAB MPV(LOINC) 9.4-12.3 fl MPV 10.1 Performed By: #### CBC1 #### [facility] [address] [address] BASIC PANEL Collected: 10/14/2018 Status: F Source: [facility] 3:49 HEALTH SYSTEM REPOSITORY TYPE CODE TESTS RESULT OUT OF REFERENCE UNITS RANGE LAB NA(LOINC) 136-145 mEq/L Sodium Blood 142 LAB K(LOINC) 3.5-5.1 mEq/L Potassium Blood 4.0 LAB CL(LOINC) 98-107 mEq/L Chloride High Blood 111 LAB CO2(LOINC) 21-32 mEq/L CO2 Blood 25 LAB GLU(LOINC) 70-99 mg/dL Glucose High Blood 241 LAB BUN(LOINC) 7-18 mg/dL BUN Blood 9 LAB CREA(LOINC 0.51-0.95 mg/dL ) Low Creatinine Blood 0.44 LAB CA(LOINC) 8.5-10.1 mg/dL Calcium Blood 9.0 LAB ANGAP(LOIN 8-16 C) Anion Gap 10 Performed By: #### P8 #### [facility] [address] [address] MAGNESIUM BLOOD Collected: 10/14/2018 Status: F Source: [facility] 3:49 AM HEALTH SYSTEM REPOSITORY TYPE CODE TESTS RESULT OUT OF REFERENCE UNITS RANGE LAB MAG(LOINC) 1.6-2.6 mg/dL Magnesium Blood 2.2 Performed By: #### MAG #### [facility] [address] [address] PHOSPHORUS BLOOD Collected: 10/14/2018 Status: F Source: [facility] 3:49 AM HEALTH SYSTEM REPOSITORY TYPE CODE TESTS RESULT OUT OF REFERENCE UNITS RANGE LAB PHOS(LOINC 2.5-4.9 mg/dL ) Phosphorus Blood 3.9 Performed By: #### PHOS #### [facility] [address] [address] NURSING PROG Observed: 10/13/2018 Status: COMPLETED Source: [facility] 11:21 PM [facility] REPOSITORY HNO ID: [id number] Author: Jazzy HenriquezRn) ANDREI Garcia Service: Nursing Author Type: Registered Nurse Type: Nursing Progress Note Filed: 10/13/2018 11:21 PM Note Text: Patient refusing to wear [place] collar. Dr. Hernandez notified. Will continue to monitor. CONSULT Observed: 10/13/2018 Status: COMPLETED Source: [facility] 8:32 PM [facility] REPOSITORY HNO ID: [id number] Author: Yajaira Blue MD Service: General Surgery Author Type: Resident Type: Consults Filed: 10/13/2018 8:34 PM Note Text: NEUROSURGERY CONSULT ARRIVAL DATE: 10/13/2018 ARRIVAL TIME: 17:20 CATEGORY: Level 2 INJURY DATE: 10/13/2018 INJURY TIME: 10:00AM Subjective This is a 58 year old White female. GCS at Scene was 15. She fell earlier this morning after slipping in dog urine. No LOC, GCS 15. She was ambulating at the scene and drove her to his doctor appointment this afternoon. She presented for evaluation at outside ED after she continued to have head pain. HPI/CHIEF COMPLAINT: GLF BRIEF DESCRIPTION OF INJURIES: Subdural hematoma with midline shift LAST FLUIDS/MEAL: N/A CODE STATUS: Not discussed ALLERGIES No Known Allergies (Not in a hospital admission) DATE OF LAST TETANUS: N/A Immunization History Administered Date(s) Administered Influenza Seasonal Inj Age 3+ 09/16/2014 Influenza Seasonal Inj Quadrivalent Age 3+ 10/16/2017 10/09/2018 Influenza Vaccine, Split-Non Spec 09/02/2012 Pneumovax 09/02/2012 Zostavax 09/20/2014 PAST MEDICAL HISTORY Diagnosis Date - Anemia - Bipolar affect, depressed (HCC) - Diabetes mellitus - Elevated liver enzymes - Esophageal reflux - Fatty liver - GERD (gastroesophageal reflux disease) - Hypertension - Leukocytosis, unspecified - Obstructive sleep apnea (adult) (pediatric) - PAF (paroxysmal atrial fibrillation) (HCC) - Personal history of colonic polyps - Urge incontinence 02/01/2017 PAST SURGICAL HISTORY Procedure Laterality Date - APPENDECTOMY 1976 - COLONOSCOP W/ OR W/O BRSH SPEC 02/13/2017 Colonoscopy mac - COLONOSCOPY 04/17/2011 X6. TA in 2008 - EGD W/O OR W/BRUSH/WASH 06/09/14 EGD - EGD W/O OR W/BRUSH/WASH 02/13/2017 EGD mac - FOOT RIGHT OP SURGERY 1992 rebuilt bottom of right foot - HEART CATHETERIZATION - LIGATE FALLOPIAN TUBE 1982 - REMOVAL OF GALLBLADDER 1977 - SCREENING COLONOSCOPY, NOT HIGH RISK PT 04/17/2011 next 04/17/16, Dr. Dimitris Staton Brule - TOTAL ABDOM HYSTERECTOMY Hysterectomy, LEONILA - TOTAL HIP REPLACEMENT bilateral 2007 right hip, 2010 lef t hip Social History Marital status: Spouse name: Years of education: Number of children: 3 Social History Main Topics Smoking status: Former Smoker Packs/day: 1.00 Years: 9.00 Quit date: 01/08/1990 Smokeless tobacco: Former User Alcohol use: Yes Comment: extremely rare Drug use: No Sexual activity: No Other Topics Concern Service No Blood Transfusions Yes Seat Belt Yes Self-Exams No ROS: Is the patient having any pain? Yes LOCATION: Head Constitutional: Negative Eye/Ear/Nose: Negative Respiratory: Negative Cardiovascular: Negative GI/Liver/Biliary: Negative Genitourinary: Negative Psychiatric: Negative Neurologic: Negative Musculoskeletal: Negative Integument: Negative Endocrine: Negative Heme/Lymph: Negative Objective PRIMARY SURVEY AIRWAY: Patent BREATHING: Breath sounds equal CIRCULATION: PT/DP +, Radials +, Femoral +, Carotid + DISABILITY: Eye: 4=Spontaneous Verbal: 5=Oriented and Converses Motor: 6=Obeys Commands Total GCS: 15=4 Resp Rate: 10 to 29=4 Syst BP: > than 89=4 REVISED TRAUMA SCORE: 12 EXPOSE / ENVIRONMENT: Warm Blankets PROCEDURES: None SECONDARY SURVEY VITALS: 10/13/18 1746 10/13/18 1800 10/13/18 1803 10/13/18 1810 BP: 112/62 120/71 126/63 Pulse: 69 65 67 65 Resp: Temp: TempSrc: SpO2: 98% 97% 96% Weight: Height: NEURO: Alert AND Oriented x 3, GCS 15, Cranial Nerves II-XII Intact, Moves All Extremities, Strength Symmetrical, No Sensory Deficits HEENT: Head: No lacerations or abrasions, no bony step offs, midface stable to palpation, Eyes: PERRL, conjunctiva/corneas without lesions, EOM intact, Ears: Canals without blood or CSF drainage, TMs clear, external ears without lacerations, Nose: Septum midline, no crepitus with motion, Throat: Oral mucosa without lacerations, teeth in place, tongue without lacerations NECK: No lacerations/wounds, Midline pain with palpation RESPIRATORY: No abrasions or contusions, No crepitus, No TTP, Equal Excursion CARDIOVASCULAR: Heart rate regular, S1S2 with no R/M/G ABDOMEN: Non-distended, Non-tenderness or peritoneal signs PELVIC/PERINEAL: Pelvis stable to palpation BACK/SPINE: Thoracolumbar spinal column non-tender, No step off or deformity noted, No external injury noted EXTREMITIES: Ecchymosis to left knee RADIOLOGICAL/OTHER TEST DATA: CT H/N: Left temporoparietal subdural hematoma 4.1*1.5*3.5cm. Blood in left tentorium. 6-7mm midline right shift. CXR: 1. ?Low lung volumes. ? 2. ?Cardiomegaly without overt failure. ? 3. ?Otherwise no acute disease. PXR: There is linear lucency along the right superior pubic ramus. ?This is ?thought to most likely represent bowel gas, although a nondisplaced fracture is not entirely excluded. PRIOR TO ARRIVAL: No Loss of Consciousness LABS: CBC, Coags, BMP, Mg, Phos Recent Labs 10/13/18 1728 WBC 6.23 HB 12.2 HCT 37.6 PLT 113* INR 1.02 APTT 28.4 NA 139 K 4.0 CHLOR 106 CO2 26 BUN 11 CREAT 0.53 GLUC 156* CA 9.8 Assessment/Plan This is a 58 year old White female. GCS at Scene was 15. She fell earlier this morning after slipping in dog urine. No LOC, GCS 15. She was ambulating at the scene and drove her to his doctor appointment this afternoon. She presented for evaluation at outside ED after she continued to have head pain. CT head was significant for subdural hematoma with midline shift. Neuro: - Q1hr neurochecks - Repeat CTH in 24 hours - Keppra - C-collar - Hold LVX Resp: - Stable Cardio: - Stable GI: - NPO/IVF - PPI : - Monitor UOP - Trend BUN/Cr Msk: - Left knee pain, negative imaging ID: - No concern for acute infection - Afebrile Ppx: - PPI - SCD - Hold LVX - Keppra Plan of care discussed with Staff Neurosurgeon: Dr. Schmidt SIGNATURE: Yajaira Blue MD PATIENT NAME: Elli Guerrero DATE: October 13, 2018 TIME: 8:34 PM PAGER/CONTACT #: [phone] ED NOTE Observed: 10/13/2018 Status: COMPLETED Source: [facility] 7:15 PM [facility] OTHER [facility] REPOSITORY HNO ID: [id number] Author: William (Rn) ANDREI Roberts Service: Emergency Medicine Author Type: Registered Nurse Type: ED Notes Filed: 10/13/2018 7:15 PM Note Text: Patient returned to the Emergency Department. CT HEAD W/O CONTRAST Observed: 10/13/2018 Status: F Source: [facility] 7:08 PM HEALTH SYSTEM REPOSITORY Performed at [facility] APPROVED BY: Alden Cherry MD EXAMINATION: CT HEAD W/O CONTRAST CLINICAL HISTORY: Intracranial hemorrhage, status post fall TECHNIQUE: Serial axial images without IV contrast were obtained from the vertex to the foramen magnum. MQ: [id number] CT Dose-Length Product (DLP): 906 mGy*cm CT Dose Reduction Employed: mAs or kVp was manually adjusted based on either the patient size or age. COMPARISON: Outside examination performed earlier today RESULT: Overall, no significant interval change in the size of the left-sided extra-axial hematoma, presumably subdural in location. This overlies the left temporal and parietal regions with a focal collection measuring up to approximately 4 cm in AP size and 16 mm in thickness, not significantly changed from the prior exam. Presumably this collection is subdural in location given the adjacent blood as well as the fact that there is no fracture and this collection appears to overlie a suture. Epidural hematoma considered less likely. Very thin subdural blood continues to overlie the adjacent brain paren chyma. There is mass effect upon the underlying brain parenchyma with effacement of cortical sulci. There does appear to be slight worsening of left ventricular effacement. No significant midline shift. Subdural blood is also noted along the left side of the tentorium and along the posterior interhemispheric fissure with the latter appearing slightly more pronounced when comparing to the prior study. No other intracranial hemorrhage is present. There is no mass or acute infarct. There is no calvarial fracture. IMPRESSION: The known left-sided extra-axial blood collection (presumably subdural in location) is not significantly changed when comparing to the examination performed 4 hours ago. Slight progressive effacement o f the left lateral ventricle. Minimal increase in volume of subdural blood along the posterior interhemispheric fissure. Blood along the left tentorium is unchanged. ED NOTE Observed: 10/13/2018 Status: COMPLETED Source: [facility] 7:02 PM [facility] REPOSITORY HNO ID: [id number] Author: William (Rn) ANDREI Roberts Service: Emergency Medicine Author Type: Registered Nurse Type: ED Notes Filed: 10/13/2018 7:15 PM Note Text: Patient transported to CT with Nurse. EKG (AK,AV,EU,FV,HL,GRACY,MM,SP) Observed: Status: F Source: [facility] 10/13/2018 6:50 PM CLINIC OTHER [place] REPOSITORY NAME : ELLI GUERRERO PID : [id number] : 1960 Gender : Female Race : ORD : [id number] Procedure Date : Oct 13 2018 18:50 Edit Date : Oct 13 2018 19:44 Diagnosis:NORMAL SINUS RHYTHM LEFT AXIS DEVIATION CANNOT RULE OUT ANTERIOR INFARCT , AGE UNDETERMINED ABNORMAL ECG NO PREVIOUS ECGS AVAILABLE Confirmed by MD Major Thomas ([id number]) on 10/13/2018 7:44:31 PM Ventricular Rate : 65 BPM Atrial Rate : 65 BPM P-R Interval : 192 ms QRS Duration : 96 ms Q-T Interval : 444 ms QTC Calculation(Bezet) : 461 ms P Placedo : 53 degrees R Placedo : -36 degrees T Placedo : -40 degrees Test Reason : Other - Specify Location : 4 : [facility] EM Overread By : MD Major Thomas Editted By : MD Major Thomas Referred By : ALLYSON IRVING Acquired by : , ED NOTE Observed: 10/13/2018 Status: COMPLETED Source: [facility] 6:43 PM [facility] OTHER [facility] REPOSITORY HNO ID: [id number] Author: William (Rn) ANDREI Roberts Service: Emergency Medicine Author Type: Registered Nurse Type: ED Notes Filed: 10/13/2018 6:47 PM Note Text: Patient complains of increased RODRIGUEZ with nausea. Dr. rIving aware. CT notified that patient needs an sonja CT. ED NOTE Observed: 10/13/2018 Status: COMPLETED Source: [facility] 6:25 PM [facility] OTHER [facility] REPOSITORY HNO ID: [id number] Author: William (Rn) ANDREI Roberts Service: Emergency Medicine Author Type: Registered Nurse Type: ED Notes Filed: 10/13/2018 6:49 PM Note Text: Straight cath urine specimen obtained and sent. URINALYSIS ROUTINE Collected: 10/13/2018 Status: F Source: [facility] 6:25 PM HEALTH SYSTEM REPOSITORY TYPE CODE TESTS RESULT OUT OF RANGE REFERENCE UNITS LAB COLOR(LOIN C) Urine Color YELLOW LAB APPUR(LOIN C) Urine Appearance TURBID LAB GLUUR(LOIN Negative mg/dL C) Abnormal Glucose Urine >=1000 LAB KETON(LOIN Negative mg/dL C) Ketone Urine NEGATIVE LAB HGBUR(LOIN Negative C) Hemoglobin,Urin NEGATIVE e LAB PROTU(LOIN Negative mg/dL C) Protein Urine NEGATIVE LAB NITRI(LOIN Negative C) Nitrites Urine NEGATIVE LAB BILIU(LOIN Negative C) Bilirubin Urine NEGATIVE LAB SPG(LOINC) 1.005-1.030 Specific 1.018 [place], Ur LAB PHUR(LOINC 5.0-8.0 ) pH,Urine 7.0 LAB UROBI(LOIN 0.0-1.0 EU/dL C) Urobilinogen,Ur 1.0 LAB LEUKO(LOIN Negative C) Leukocytes NEGATIVE Esterase LAB RBCU1(LOIN 0.0-5.0 /hpf C) RBC,Urine 2.4 LAB WBCU1(LOIN 0.0-5.0 /hpf C) WBC, Urine 0.2 LAB EPIT1(LOIN 0.0-5.0 /hpf C) Ep Cells Urine 1.7 LAB BACT1(LOIN None C) Bacteria Urine NONE LAB HYCA1(LOIN 0.0-1.0 /lpf C) Hyaline Cast 0.0 Performed By: #### URIN2 #### [place] [address] URINE DRUG SCREEN Collected: 10/13/2018 Status: F Source: [facility] 6:25 PM HEALTH SYSTEM REPOSITORY TYPE CODE TESTS RESULT OUT OF REFERENCE UNITS RANGE LAB UAMP(LOINC Non-Detected ) Urine Amphetamine Non-detecte d LAB UBARB(LOIN Non-Detected C) Urine Barbiturates Non-detecte d LAB UBENZ(LOIN Non-Detected C) Urine Benzodiazepine Non-detecte d LAB UCOC(LOINC Non-Detected ) Urine Cocaine Metab Non-detecte d LAB UOPI(LOINC Non-Detected ) Urine Opiate Non-detecte d LAB UPCP(LOINC Non-Detected ) Urine PCP Non-detecte d LAB UTHC2(LOIN Non-Detected C) Urine THC Non-detecte d Result Comment: Urine Drug Cutoff Levels Urine Amphetamine 500 ng/mL Urine Barbiturate 200 ng/mL Urine Benzodiazepines 200 ng/mL Urine Cocaine 150 ng/mL Urine Phencyclidine (PCP) 25 ng/mL Urine Opiates 300 ng/mL Urine THC 50 ng/mL The results of these analytes are unconfirmed and reported qualitatively as detected or non-detected relative to the cutoff value. Detected results indicate the sample is likely to contain the analyte. Non-detected results indicate that either the sample does not contain the analyte or it is present in concentrations below the cutoff level. This drug screen should be used for medical diagnostic purposes only. Performed By: #### UDRG2 #### [place] [address] ALLIED HEALTH Observed: 10/13/2018 Status: COMPLETED Source: [facility] 6:15 PM [facility] OTHER [facility] REPOSITORY HNO ID: [id number] Author: Galina () Chaplain Shade Service: Spiritual Care Author Type: Division Manager Type: Allied Health Filed: 10/13/2018 6:20 PM Note Text: SPIRITUALCARE Spiritual Care Visit- Brief Note Name: Elli Guerrero Date: October 13, 2018 Notes: Division Manager paged for a trauma 2. Patient had a fall earlier today and complained of head pain according to her daughter. Patient is pentecostal. Patient's daughter, son-in-law , and grandson were in the family room. Patient's daughter was visibly shaken. Division Manager sat with the family and provided supportive presence. Patient's daughter appeared to calm down after a while. Division Manager Signature: Chaplain Osmany To contact the Spiritual Care Department: Please call [phone] or Page the On-Call Division Manager at pager [phone] Thank you for the opportunity to be of service. This is an electronically created document. IF PRINTED, PLEASE DO NOT REMOVE FROM THE CHART OR MODIFY PRINTED COPY. HISTORY PHYSICAL Observed: 10/13/2018 Status: COMPLETED Source: [facility] 6:08 PM [facility] REPOSITORY HNO ID: [id number] Author: Milagro Fan Service: General Surgery Author Type: Physician Type: HANDP Filed: 10/14/2018 1:19 PM Note Text: [facility] DATE: 10/13/2018 ARRIVAL TIME: 17:20 CATEGORY: Level 2 INJURY DATE: 10/13/2018 INJURY TIME: 10:00AM Subjective This is a 58 year old White female. GCS at Scene was 15. She fell earlier this morning after slipping in dog urine. No LOC, GCS 15. She was ambulating at the scene and drove her to his doctor appointment this afternoon. She presented for evaluation at outside ED after she continued to have head pain. HPI/CHIEF COMPLAINT: GLF BRIEF DESCRIPTION OF INJURIES: Subdural hematoma with midline shift LAST FLUIDS/MEAL: N/A CODE STATUS: Not discussed ALLERGIES No Known Allergies (Not in a hospital admission) DATE OF LAST TETANUS: N/A Immunization History Administered Date(s) Administered Influenza Seasonal Inj Age 3+ 09/16/2014 Influenza Seasonal Inj Quadrivalent Age 3+ 10/16/2017 10/09/2018 Influenza Vaccine, Split-Non Spec 09/02/2012 Pneumovax 09/02/2012 Zostavax 09/20/2014 PAST MEDICAL HISTORY Diagnosis Date - Anemia - Bipolar affect, depressed (HCC) - Diabetes mellitus - Elevated liver enzymes - Esophageal reflux - Fatty liver - GERD (gastroesophageal reflux disease) - Hypertension - Leukocytosis, unspecified - Obstructive sleep apnea (adult) (pediatric) - PAF (paroxysmal atrial fibrillation) (HCC) - Personal history of colonic polyps - Urge incontinence 02/01/2017 PAST SURGICAL HISTORY Procedure Laterality Date - APPENDECTOMY 1976 - COLONOSCOP W/ OR W/O BRSH SPEC 02/13/2017 Colonoscopy mac - COLONOSCOPY 04/17/2011 X6. TA in 2008 - EGD W/O OR W/BRUSH/WASH 06/09/14 EGD - EGD W/O OR W/BRUSH/WASH 02/13/2017 EGD mac - FOOT RIGHT OP SURGERY 1992 rebuilt bottom of right foot - HEART CATHETERIZATION - LIGATE FALLOPIAN TUBE 1982 - REMOVAL OF GALLBLADDER 1977 - SCREENING COLONOSCOPY, NOT HIGH RISK PT 04/17/2011 next 04/17/16, Dr. Dimitris Staton Brule - TOTAL ABDOM HYSTERECTOMY Hysterectomy, LEONILA - TOTAL HIP REPLACEMENT bilateral 2007 right hip, 2010 lef t hip Social History Marital status: Spouse name: Years of education: Number of children: 3 Social History Main Topics Smoking status: Former Smoker Packs/day: 1.00 Years: 9.00 Quit date: 01/08/1990 Smokeless tobacco: Former User Alcohol use: Yes Comment: extremely rare Drug use: No Sexual activity: No Other Topics Concern Service No Blood Transfusions Yes Seat Belt Yes Self-Exams No ROS: Is the patient having any pain? Yes LOCATION: Head Constitutional: Negative Eye/Ear/Nose: Negative Respiratory: Negative Cardiovascular: Negative GI/Liver/Biliary: Negative Genitourinary: Negative Psychiatric: Negative Neurologic: Negative Musculoskeletal: Negative Integument: Negative Endocrine: Negative Heme/Lymph: Negative Objective PRIMARY SURVEY AIRWAY: Patent BREATHING: Breath sounds equal CIRCULATION: PT/DP +, Radials +, Femoral +, Carotid + DISABILITY: Eye: 4=Spontaneous Verbal: 5=Oriented and Converses Motor: 6=Obeys Commands Total GCS: 15=4 Resp Rate: 10 to 29=4 Syst BP: > than 89=4 REVISED TRAUMA SCORE: 12 EXPOSE / ENVIRONMENT: Warm Blankets PROCEDURES: None SECONDARY SURVEY VITALS: 10/13/18 1746 10/13/18 1800 10/13/18 1803 10/13/18 1810 BP: 112/62 120/71 126/63 Pulse: 69 65 67 65 Resp: 20 Temp: TempSrc: SpO2: 98% 97% 96% Weight: Height: NEURO: Alert AND Oriented x 3, GCS 15, Cranial Nerves II-XII Intact, Moves All Extremities, Strength Symmetrical, No Sensory Deficits HEENT: Head: No lacerations or abrasions, no bony step offs, midface stable to palpation, Eyes: PERRL, conjunctiva/corneas without lesions, EOM intact, Ears: Canals without blood or CSF drainage, TMs clear, external ears without lacerations, Nose: Septum midline, no crepitus with motion, Throat: Oral mucosa without lacerations, teeth in place, tongue without lacerations NECK: No lacerations/wounds, Midline pain with palpation RESPIRATORY: No abrasions or contusions, No crepitus, No TTP, Equal Excursion CARDIOVASCULAR: Heart rate regular, S1S2 with no R/M/G ABDOMEN: Non-distended, Non-tenderness or peritoneal signs PELVIC/PERINEAL: Pelvis stable to palpation BACK/SPINE: Thoracolumbar spinal column non-tender, No step off or deformity noted, No external injury noted EXTREMITIES: Ecchymosis to left knee RADIOLOGICAL/OTHER TEST DATA: CT H/N: Left temporoparietal subdural hematoma 4.1*1.5*3.5cm. Blood in left tentorium. 6-7mm midline right shift. CXR: 1. ?Low lung volumes. ? 2. ?Cardiomegaly without overt failure. ? 3. ?Otherwise no acute disease. PXR: There is linear lucency along the right superior pubic ramus. ?This is ?thought to most likely represent bowel gas, although a nondisplaced fracture is not entirely excluded. PRIOR TO ARRIVAL: No Loss of Consciousness LABS: CBC, Coags, BMP, Mg, Phos Recent Labs 10/13/18 1728 WBC 6.23 HB 12.2 HCT 37.6 PLT 113* INR 1.02 APTT 28.4 NA 139 K 4.0 CHLOR 106 CO2 26 BUN 11 CREAT 0.53 GLUC 156* CA 9.8 Assessment/Plan This is a 58 year old White female. GCS at Scene was 15. She fell earlier this morning after slipping in dog urine. No LOC, GCS 15. She was ambulating at the scene and drove her to his doctor appointment this afternoon. She presented for evaluation at outside ED after she continued to have head pain. CT head was significant for subdural hematoma with midline shift. Neuro: - Neurosurgery consult - Q1hr neurochecks - Repeat CTH in 24 hours - Keppra - C-collar - Hold LVX Resp: - Stable Cardio: - Stable GI: - NPO/IVF - PPI : - Monitor UOP - Trend BUN/Cr Msk: - Left knee pain, negative imaging ID: - No concern for acute infection - Afebrile Ppx: - PPI - SCD - Hold LVX - Keppra Plan of care discussed with Staff Trauma Surgeon: Dr. Smith SIGNATURE: Yajaira Blue MD PATIENT NAME: Elli Guerrero DATE: October 13, 2018 TIME: 6:09 PM PAGER/CONTACT #: [phone] Attending Note As above Delayed note signing Significant TBI and SDH with brain shift Admit to NSICU Neuro checks Keppra NS consult SCD No Lovenox Repeat head CT in AM or earlier if worse SICU consult I evaluated the patient and personally participated in the de santiago components. I agree with the resident's findings and plan as documented and have discussed the case and management of the patient's care with the resident. Signature: Milagro Fan MD Date: 10/14/2018 Time: 1:17 PM CHEST 1 VIEW Observed: 10/13/2018 Status: F Source: [facility] 5:53 PM HEALTH SYSTEM REPOSITORY Performed at [facility] APPROVED BY: Arvind Silva MD EXAM TITLE: AP SUPINE CHEST DATE: 10/13/2018 17:48 COMPARISON: None. CLINICAL INDICATION/HISTORY: Trauma. The patient status post fall today. TECHNIQUE: A single AP supine portable view of the chest is presented. FINDINGS: Tubes and lines: None Cardiomediastinal silhouette: There is cardiomegaly. The thoracic aorta is slightly tortuous. Mediastinum is unremarkable. The pulmonary vascularity is within normal limits. Lungs and pleura: The costophrenic angles are clear bilaterally. There are low lung volumes. No focal infiltrates are identified. There is no evidence of pneumothorax. IMPRESSION: 1. Low lung volumes. 2. Cardiomegaly without overt failure. 3. Otherwise no acute disease. PELVIS 1 OR 2 VIEWS Observed: 10/13/2018 Status: F Source: [facility] 5:48 PM HEALTH SYSTEM REPOSITORY Performed at [facility] APPROVED BY: Alden Cherry MD EXAM TITLE: PELVIS 1 OR 2 VIEWS DATE:10/13/2018 17:43 COMPARISON: None. CLINICAL INDICATION/HISTORY: Status post fall TECHNIQUE: A single AP view of the pelvis is presented. FINDINGS: There are bilateral hip prostheses. No obvious complication or malalignment. Questionable nondisplaced fracture involving the right superior pubic ramus. No other findings suspicious for fracture. Sacroiliac joints and symphysis pubis grossly appear normal. No lytic or blastic lesion. IMPRESSION: There is linear lucency along the right superior pubic ramus. This is thought to most likely represent bowel gas, although a nondisplaced fracture is not entirely excluded. Follow-up as indicated. ED PROV NOTE Observed: 10/13/2018 Status: COMPLETED Source: [facility] 5:40 PM CLINIC OTHER [facility]AMP[facility] REPOSITORY HNO ID: [id number] Author: Allyson Irving DO Service: Emergency Medicine Author Type: Physician Type: ED Provider Notes Filed: 10/15/2018 1:02 AM Note Text: ED Provider Note Patient Name: Elli Guerrero SERVICE DATE: 10/13/18 History No chief complaint on file. 58-year-old female transferred to the emergency department from [facility] via EMS for evaluation s/p fall. Pt was seen at [facility] for evaluation of a fall. Patient slipped this morning at approximately 10 AM falling and hitting her head on the counter. Pt denies any loss of consciousness at that time. Patient states she went about her day and even drove her in the hospital and babysat for her grandson. Patient states she ended up going into the hospital for a headache at which time it was found patient had a subdural and subarachnoid hemorrhage. Patient transferred to our facility for a trauma evaluation. Patient arrives alert and oriented speaking in full sentences. Patient complaining of a mild frontal headache. Patient denies any other symptoms at this time. PAST MEDICAL HISTORY Diagnosis Date - Anemia - Bipolar affect, depressed (HCC) - Diabetes mellitus - Elevated liver enzymes - Esophageal reflux - Fatty liver - GERD (gastroesophageal reflux disease) - Hypertension - Leukocytosis, unspecified - Obstructive sleep apnea (adult) (pediatric) - PAF (paroxysmal atrial fibrillation) (HCC) - Personal history of colonic polyps - Urge incontinence 02/01/2017 PAST SURGICAL HISTORY Procedure Laterality Date - APPENDECTOMY 1976 - COLONOSCOP W/ OR W/O BRSH SPEC 02/13/2017 Colonoscopy mac - COLONOSCOPY 04/17/2011 X6. TA in 2008 - EGD W/O OR W/BRUSH/WASH 06/09/14 EGD - EGD W/O OR W/BRUSH/WASH 02/13/2017 EGD mac - FOOT RIGHT OP SURGERY 1992 rebuilt bottom of right foot - HEART CATHETERIZATION - LIGATE FALLOPIAN TUBE 1982 - REMOVAL OF GALLBLADDER 1977 - SCREENING COLONOSCOPY, NOT HIGH RISK PT 04/17/2011 next 04/17/16, Dr. Dimitris Staton Brule - TOTAL ABDOM HYSTERECTOMY Hysterectomy, LEONILA - TOTAL HIP REPLACEMENT bilateral 2007 right hip, 2010 lef t hip FAMILY HISTORY Problem Relation Age of Onset - Diabetes Mother - Hypertension Mother - Cancer Father lung cancer - Diabetes Father - Heart Father CA x 2 - Hypertension Father - Diabetes Maternal Grandmother - Diabetes Maternal Grandfather - Diabetes Paternal Grandmother - Hypertension Paternal Grandmother - Diabetes Paternal Grandfather - Heart Paternal Grandfather CA Social History Social History Main Topics - Smoking status: Former Smoker Packs/day: 1.00 Years: 9.00 Quit date: 01/08/1990 - Smokeless tobacco: Former User - Alcohol use Yes Comment: extremely rare - Drug use: No - Sexual activity: No ALLERGIES Not on File Review of Systems Constitutional: Negative for chills and fever. HENT: Negative for congestion and nosebleeds. Respiratory: Negative for shortness of breath and wheezing. Cardiovascular: Negative for chest pain and palpitations. Gastrointestinal: Negative for constipation, diarrhea, nausea and vomiting. Genitourinary: Negative for dysuria and hematuria. Musculoskeletal: Negative for back pain and joint swelling. Skin: Negative for color change and rash. Neurological: Negative for dizziness and syncope. Psychiatric/Behavioral: Negative for agitation and confusion. Physical Exam BP 123/56 Pulse 65 Temp (Src) 98.4 (Oral) Resp 20 Ht 5' 5 (1.65m) Wt 250 lb (113.4kg) SpO2 95% BMI 41.60 kg/(m2). Physical Exam Constitutional: She is oriented to person, place, and time. She appears well-developed and well-nourished. No distress. HENT: Head: Normocephalic and atraumatic. No hemotympanum bilaterally. Eyes: Pupils are equal, round, and reactive to light. Conjunctivae and EOM are normal. Neck: Mild midline cervical tenderness palpation. Cervical collar placed. Cardiovascular: Normal rate, regular rhythm and normal heart sounds. Exam reveals no gallop and no friction rub. No murmur heard. Pulmonary/Chest: Effort normal and breath sounds normal. No respiratory distress. She has no wheezes. Abdominal: Soft. Bowel sounds are normal. There is no tenderness. There is no rebound and no guarding. Musculoskeletal: Normal range of motion. She exhibits no edema. Neurological: She is alert and oriented to person, place, and time. Normal strength and normal sensation. No focal neural deficits. Skin: Skin is warm and dry. Capillary refill takes less than 2 seconds. Psychiatric: She has a normal mood and affect. Her behavior is normal. Diagnostic Testing ED Labs Ordered and Reviewed ALCOHOL / ETHANOL BLOOD (AK,AV,EU,FV,HL,GRACY,MM,SP) CBC + AUTO DIFF (MO,AV,EU,FV,HL,GRACY,MM,SP) LIPASE BLOOD (AK,AV,EU,FV,HL,GRACY,MM,SP) PROTHROMBIN TIME / PT (AK,AV,EU,FV,HL,GRACY,MM,SP) ACTIVATED PTT (AK,AV,EU,FV,HL,GRACY,MM,SP) AMYLASE BLOOD (AK,AV,EU,FV,HL,GRACY,MM,SP) COMPREHENSIVE METABOLIC PANEL (AK,AV,EU,FV,HL,GRACY,MM,SP) ECU TROPONIN I (MO ED) MDRD GFR URINALYSIS WITH MICROSCOPIC (AK,AV,EU,FV,HL,GRACY,MM,SP) URINE DRUG SCREEN (AK,AV,EU,FV,HL,GRACY,MM,SP) TYPE + SCREEN (AK,AV,EU,FV,HL,GRAYC,MM,SP) Procedures ED Course / Clinical Impression ED Course as of Oct 15 102 Allyson Irving's Documentation SatOct 13, 2018 184 Surgery resident informed that patient's headache is worse and she is nauseous. She is awake, alert oriented x 3. Pupils equal and reactive to light. Extraocular movements intact. Pharynx patent without stridor. Lungs clear bilaterally. Heart regular rate and rhythm, no murmurs. Abdomen soft, nontender, nondistended. She does move all 4 limbs equally. Distal pulses intact and equal. No deficits. Cranial nerves II-12 grossly intact. GCS 15. We are rechecking a CT scan and getting an EKG prior to giving nausea medication. Dr. Ribera has been advised of the patient's symptoms. Others' Documentation SatOct 13, [id number] Spoke with surgery resident regarding results of repeat CT scan, ok with current plan and do not recommend any further interventions at this time [GG] ED Course User Index [GG] Troy Peralta DO Clinical Impressions as of Oct 15 102 Subdural hematoma (HCC) MDM / Disposition / Plan 58-year-old female presents as a trauma transfer from outside hospital for evaluation after fall with a subdural and subarachnoid hemorrhage on CT scan from outside hospital. Patient evaluated in the emergency department and at time of evaluation had no neurologic deficits and only complaint was a headache. Cervical collar was placed due to midline cervical pain on palpation. Trauma team was present for evaluation and do not recommend a repeat head CT at this time. Patient to be admitted to the neuro intensive care unit. Patient had a worsening headache on the emergency department and so a repeat head CT was ordered. Fentanyl was given for pain control. Repeat head CT shows minimal increase in volume of the subdural bleed. Spoke with the surgery resident who does not recommend any further intervention based on repeat CT. Patient has been admitted to the neuro ICU in stable condition. SIGNATURE: Troy Peralta DO Attending Attestation Note I evaluated the patient and personally participated in the de santiago components. I agree with the resident's findings and plan as documented and have discussed the case and management of the patient's care with the resident. This is a 58-year-old female who slipped on some dog urine this morning and hit her head on a counter at approximately 10 AM. She went on with her day and then went to an outside hospital with a headache. She was noted to have a subarachnoid and subdural bleed with midline shift. No neurological deficits were noted at the outside hospital. She was transferred here for trauma and neurosurgery evaluation. She denies any nausea or vomiting. No chest pain, shortness of breath or abdominal pain. No difficulty moving her arms or legs. No other complaints. She is awake, alert, oriented ?3. Head normocephalic. Pupils equal and reactive to light. Extraocular movements intact. Pharynx clear and patent, no stridor. No blood from the external auditory canals. Lungs clear bilaterally. Heart regular rate and rhythm, no murmurs. Abdomen soft, nontender, nondistended. No palpable masses. She does move all 4 limbs equally. Distal pulses intact and equal. Strength 5 out of 5. Cranial nerves II-12 grossly intact. GCS 15. No cyanosis of the skin. There is tenderness in the cervical spine. The patient was brought in as a trauma category 2. She was evaluated by the ED and trauma staff. Cervical collar was placed here. The trauma service does not feel that she needs another CT scan right away. Disposition pending. Critical Care I spent a total of 30 minutes of critical care time in the evaluation and management of this patient. This was necessary to treat or prevent deterioration of the following condition(s): EHS MANAGER impairment, which the patient had and/or has a high probability of suddenly developing. The patient received Consultation by Trauma service during the time that critical care was provided.I discussed the plan of care with the Resident and agree with the findings documented. Critical care time excludes separately billed procedures. DO Troy Wyatt (Res) DO Kathryn Resident 10/14/18 0021 Allyson Irving DO 10/15/18 0102 ED NOTE Observed: 10/13/2018 Status: COMPLETED Source: [facility] 5:[address] [facility] OTHER CAMPUS REPOSITORY HNO ID: [id number] Author: Yuli Sales) ANDREI Cheng Service: Emergency Medicine Author Type: Registered Nurse Type: ED Notes Filed: 10/13/2018 5:35 PM Note Text: Ccollar switched out to aspen collar. ED NOTE Observed: 10/13/2018 Status: COMPLETED Source: [facility] 5:33 PM CL[facility] OTHER CAMPUS REPOSITORY HNO ID: [id number] Author: Yuli Cheng RN Service: Emergency Medicine Author Type: Registered Nurse Type: ED Notes Filed: 10/13/2018 5:33 PM Note Text: CT notified no CT's at this time. ED NOTE Observed: 10/13/2018 Status: COMPLETED Source: [place] 5:[address] [facility] OTHER CAMPUS REPOSITORY HNO ID: [id number] Author: Yuli Cheng RN Service: Emergency Medicine Author Type: Registered Nurse Type: ED Notes Filed: 10/13/2018 5:30 PM Note Text: OR first call complete. ED NOTE Observed: 10/13/2018 Status: COMPLETED Source: [place] 5:[address] [facility] OTHER CAMPUS REPOSITORY HNO ID: [id number] Author: Yuli Cheng RN Service: Emergency Medicine Author Type: Registered Nurse Type: ED Notes Filed: 10/13/2018 5:30 PM Note Text: Blood bank notified of type and screen only. ED NOTE Observed: 10/13/2018 Status: COMPLETED Source: [facility] 5:28 PM CL[facility] OTHER CAMPUS REPOSITORY HNO ID: [id number] Author: Yuli Cheng RN Service: Emergency Medicine Author Type: Registered Nurse Type: ED Notes Filed: 10/13/2018 5:58 PM Note Text: Labs were drawn and sent. CASE MANAGEM Observed: 10/13/2018 Status: COMPLETED Source: [place] 5:[address] [facility] OTHER [place] REPOSITORY HNO ID: [id number] Author: Eleuterio Peterson (Sw) Service: Care Management Author Type: Bar Turner Type: Care Mgt Progress Note Filed: 10/13/2018 7:35 PM Note Text: CARE MANAGEMENT PROGRESS NOTE SERVICE DATE: 10/13/2018 SERVICE TIME: 5:28 Pm LOS: 0 days Trauma II fall The patient was transfer from [facility] by [facility]. When family arrived social work offered support and got them back when the patients RN okayed it. Social work will follow appropriately. SIGNATURE: ISABELLE Zhang PATIENT NAME: Elli Guerrero DATE: October 13, 2018 TIME: 7:32 PM PAGER/CONTACT #: [phone] HEMOGRAM/DIFF Collected: 10/13/2018 Status: F Source: [facility] 5:28 PM HEALTH SYSTEM REPOSITORY TYPE CODE TESTS RESULT OUT OF REFERENCE UNITS RANGE LAB WBC(LOINC) 3.98-10.04 thou/cmm WBC 6.23 LAB RBC(LOINC) 3.93-5.22 mil/cmm RBC 4.18 LAB HGB(LOINC) 11.2-15.7 g/dL Hgb 12.2 LAB HCT(LOINC) 34.1-44.9 % Hct 37.6 LAB MCV(LOINC) 79.4-94.8 fl MCV 90.0 LAB MCH(LOINC) 25.6-32.2 pg MCH 29.2 LAB MCHC(LOINC 31.6-34.8 % ) MCHC 32.4 LAB RDW(LOINC) 11.7-14.4 % RDW 13.7 LAB RDWSD(LOIN 36.4-46.3 fl C) RDW SD 45.1 LAB PLT(LOINC) 182-369 thou/cmm Low Platelet 113 LAB MPV(LOINC) 9.4-12.3 fl MPV 9.9 LAB SEG(LOINC) % Seg Neutrophil 79.8 LAB IGRE(LOINC % ) Immature Grans 0.50 LAB LYMPH(LOIN % C) Lymphocyte 14.0 LAB MNO(LOINC) % Monocyte 4.5 LAB EOSIN(LOIN % C) Eosinophil 1.0 LAB BASO(LOINC % ) Basophil 0.2 LAB SEGN(LOINC 1.56-6.13 thou/cmm ) Abs. Neut (ANC) 4.97 LAB IGAB(LOINC 0.00-0.05 thou/cmm ) Abs Immature Grans 0.03 LAB LYMN(LOINC 1.18-3.74 thou/cmm ) Low Abs. Lymph 0.87 LAB MONON(LOIN 0.27-0.70 thou/cmm C) Abs. Walsh 0.28 LAB EOSN(LOINC 0.00-0.31 thou/cmm ) Abs. Eosin 0.06 LAB BASON(LOIN 0.01-0.08 thou/cmm C) Abs. Baso 0.01 Performed By: #### CBCD1 #### [facility] [address] [place] [address] ALCOHOL, SERUM Collected: 10/13/2018 Status: F Source: [facility] 5:28 PM HEALTH SYSTEM REPOSITORY TYPE CODE TESTS RESULT OUT OF RANGE REFERENCE UNITS LAB ALC(LOINC) mg/dL Alcohol, < 3 Serum Performed By: #### ALC #### [facility] [address] [place] [address] LIPASE BLOOD Collected: 10/13/2018 Status: F Source: [facility] 5:28 PM HEALTH SYSTEM REPOSITORY TYPE CODE TESTS RESULT OUT OF REFERENCE UNITS RANGE LAB LIP(LOINC) 73-393 U/L Lipase Blood 156 Performed By: #### LIP #### [facility] [address] [place] [address] AMYLASE BLOOD Collected: 10/13/2018 Status: F Source: [facility] 5:28 PM HEALTH SYSTEM REPOSITORY TYPE CODE TESTS RESULT OUT OF REFERENCE UNITS RANGE LAB DIMITRI(LOINC) 25-115 U/L Amylase Blood 66 Performed By: #### DIMITRI #### [place] [address] COMPREHENSIVE PANEL Collected: 10/13/2018 Status: F Source: [facility] 5:28 HEALTH SYSTEM REPOSITORY TYPE CODE TESTS RESULT OUT OF REFERENCE UNITS RANGE LAB NA(LOINC) 136-145 mEq/L Sodium Blood 139 LAB K(LOINC) 3.5-5.1 mEq/L Potassium Blood 4.0 LAB CL(LOINC) 98-107 mEq/L Chloride Blood 106 LAB CO2(LOINC) 21-32 mEq/L CO2 Blood 26 LAB GLU(LOINC) 70-99 mg/dL Glucose High Blood 156 LAB BUN(LOINC) 7-18 mg/dL BUN Blood 11 LAB CREA(LOINC 0.51-0.95 mg/dL ) Creatinine Blood 0.53 LAB CA(LOINC) 8.5-10.1 mg/dL Calcium Blood 9.8 LAB ALB(LOINC) 3.4-5.0 g/dL Albumin Blood 4.3 LAB TP(LOINC) 6.4-8.2 g/dL Total High Protein 8.3 LAB AST(LOINC) 9-37 U/L AST-SGOT Blood 30 LAB ALT(LOINC) 12-78 U/L ALT-SGPT Blood 28 LAB ALKP(LOINC 46-116 U/L ) Alk High Phosphatase 131 LAB BILIT(LOIN 0.2-1.0 mg/dL C) Total Bilirubin 0.6 LAB ANGAP(LOIN 8-16 C) Anion Gap 11 Performed By: #### P14 #### [facility] [address] [place] [id number] ECU TROPONIN I Collected: 10/13/2018 Status: F Source: [facility] 5:28 PM HEALTH SYSTEM REPOSITORY TYPE CODE TESTS RESULT OUT OF REFERENCE UNITS RANGE LAB ERTRP(LOINC 0.015-0.045 ng/ml ) ECU Troponin I < 0.015 Performed By: #### ERTRP #### [facility] [address] [place] [address] PROTIME Collected: 10/13/2018 Status: F Source: [facility] 5:28 PM HEALTH SYSTEM REPOSITORY TYPE CODE TESTS RESULT OUT OF REFERENCE UNITS RANGE LAB PTI(LOINC) 9.7-13.0 sec Prothrombin Time 10.6 LAB INR(LOINC) 0.90-1.30 INR 1.02 Result Comment: Note: Reference Range Change Vitamin K Antagonist (VKA) Therapeutic Range: INR 2 to 3 (Target INR of 2.5) Note: For patients treated with VKA drugs, such as warfarin, the [place] [employer] 2012 Guideline recommends a therapeutic INR range of 2 to 3 (target INR of 2.5). This recommendation includes high-risk patients with antiphospholipid syndrome with previous arterial or venous thromboembolism, current-generation mechanical or bioprosthetic aortic heart valve replacement. VKA Therapeutic Range for some Mechanical Valve Replacement: INR 2.5 to 3.5 (Target INR of 3) Note: Patients with mechanical aortic valve replacement and additional risk factors for thromboembolic events (atrial fibrillation, previous thromboembolism, LV dysfunction, hypercoagulable conditions) or an older generation mechanical AVR (i.e., ball in-Cage) or any mechanical MVR should have a INR therapeutic range of 2.5 to 3.5 target INR of 3). Gildardo GH, et al. Chest 2012; 141:7S-47S Nelsy ENRIQUE et al. JACC 2017; 70: 252-289 Performed By: #### PT #### [facility] [address] [place] [id number] ACTIVATED PTT Collected: 10/13/2018 Status: F Source: [facility] 5:28 PM HEALTH SYSTEM REPOSITORY TYPE CODE TESTS RESULT OUT OF REFERENCE UNITS RANGE LAB APTT(LOINC 23.0-32.4 sec ) Activated PTT 28.4 Result Comment: Note: New Reference Range Unfractionated Heparin Therapeutic Ranges: Standard Heparin Nomogram: 53 to 78 seconds (anti-Xa level of 0.3 to 0.7 U/mL) Low Dose/ACS Nomogram: 49 to 67 seconds (anti-Xa level of 0.2 to 0.5 U/mL) Stroke Treatment Nomogram: 49 to 67 seconds (anti-Xa level of 0.2 to 0.5 U/mL) Note: The APTT therapeutic range has been determined for the current lot of laboratory APTT reagent in use throughout the [facility]. 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 Redraw patient at that time. Performed By: #### T&S #### [place] [address] ED NOTE Observed: 10/13/2018 Status: COMPLETED Source: [facility] 5:27 PM CLINIC OTHER CAMPUS REPOSITORY HNO ID: [id number] Author: Yuli (Rn) ANDREI Cheng Service: Emergency Medicine Author Type: Registered Nurse Type: ED Notes Filed: 10/13/2018 5:28 PM Note Text: Ccollar applied. CT CERVICAL W/O Observed: 10/13/2018 Status: F Source: [facility] 3:31 PM [place] [id number] Patient: ELLI GUERRERO Phone#: : 1960 Age: 58 Gender: F Pt. Type: ER Account: [id number] Location: 052 Ordering: DR. FCO DE LEÓN Exam Date: 10/13/2018/15:20 Family Phys: YANDEL FLORESO Charge Code: [id number] Physician: Creek Order #: [id number] DLP Dose#: 15.00 mGy PROCEDURE: CT CERVICAL WITHOUT CONTRAST COMPARISON: None. INDICATIONS: Trauma TECHNIQUE: Multi-planar CT images were created without intravenous contrast. All CT scans at this facility use dose modulation, iterative reconstruction, and/or weight based dosing when appropriate to reduce radiation dose to as low as reasonably achievable. IV CONTRAST: No IV contrast used,0ml TOTAL DOSE: 15.00 CTDIvol(mGy) FINDINGS: CRANIOCERVICAL AREA: Normal foramen magnum with no Chiari malformation. PARASPINAL AREA: Normal with no visible mass. BONES: Multilevel degenerative change is present. There is hypertrophy at the articular facets CERVICAL DISC LEVELS: C2-C3: Bony hypertrophy is present at the left articular facet. There is mild left foraminal narrowing. C3-C4: Bony hypertrophy is present at the articular facets. There is mild narrowing of the foramina bilaterally. C4-C5: There is mild disc space narrowing. Large osteophyte is present anteriorly. C5-C6: No significant disc/facet abnormality, spinal stenosis, or foraminal stenosis. C6-C7: No significant disc/facet abnormality, spinal stenosis, or foraminal stenosis. C7-T1: No significant disc/facet abnormality, spinal stenosis, or foraminal stenosis. CONCLUSION: Continued Report - Page 2 of 2 Patient: ELLI GUERRERO Phone#: : 1960 Age: 58 Gender: F Pt. Type: ER Account: [id number] Location: 052 Ordering: DR. FCO DE LEÓN Exam Date: 10/13/2018/15:20 Family Phys: YANDEL BUSH Charge Code: [id number] Physician: Creek Order #: [id number] DLP Dose#: 15.00 mGy 1. Multilevel degenerative change is present with hypertrophy of the articular facets most marked at the C2-C5 levels.. 2. There is no evidence of fracture or subluxation. Dictated by: Carmen Correa MD on 10/13/2018 at 15:41 Approved by: Cramen Correa MD on 10/13/2018 at 15:41 KNEE COMPLETE LT MIN Observed: 10/13/2018 Status: F Source: [facility] 4 VIEWS 3:30 PM [place] [id number] Patient: ELLI GUERRERO Phone#: : 1960 Age: 58 Gender: F Pt. Type: ER Account: [id number] Location: 052 Ordering: DR. FCO DE LEÓN Exam Date: 10/13/2018/15:17 Family Phys: YANDEL FLORESO Charge Code: [id number] Physician: Creek Order #: [id number] DLP Dose#: PROCEDURE: X-RAY KNEE LT COMPLETE 4 VIEWS COMPARISON: None. INDICATIONS: Trauma FINDINGS: BONES: Degenerative changes of the knee are present. There is narrowing of the medial compartment and patellofemoral compartment. There is a bone density lateral to the patellofemoral joint consistent with remote avulsion. SOFT TISSUES: Negative. No visible soft tissue swelling. EFFUSION: None visible. OTHER: Negative. CONCLUSION: 1. Degenerative changes of the knee are present. Dictated by: Carmen Correa MD on 10/13/2018 at 15:42 Approved by: Carmen Correa MD on 10/13/2018 at 15:42 CT BRAIN W/O CONTRAST Observed: 10/13/2018 Status: F Source: [facility] 3:29 PM [place] [id number] Patient: ELLI GUERRERO Phone#: : 1960 Age: 58 Gender: F Pt. Type: ER Account: [id number] Location: 052 Ordering: DR. FCO DE LEÓN Exam Date: 10/13/2018/15:20 Family Phys: YANDEL ELEAZAR Charge Code: [id number] Physician: Creek Order #: [id number] DLP Dose#: 52.30 mGy PROCEDURE: CT BRAIN WITHOUT CONTRAST COMPARISON: None. INDICATIONS: Trauma TECHNIQUE: CT images were obtained without contrast material. All CT scans at this facility use dose modulation, iterative reconstruction, and/or weight based dosing when appropriate to reduce radiation dose to as low as reasonably achievable. IV CONTRAST: No IV contrast used,0ml TOTAL DOSE: 52.30 CTDIvol(mGy) FINDINGS: CEREBRUM: Left temporoparietal epidural hematoma is present. There is midline shift to the right of 6-7 mm. There is no evidence of parenchymal hemorrhage. Blood is also noted in the left tentorium. CEREBELLUM: No edema, hemorrhage, mass, acute infarction, or inappropriate atrophy. BRAINSTEM: No edema, hemorrhage, mass, acute infarction, or inappropriate atrophy. CSF SPACES: There is a low left temporoparietal epidural hematoma measuring 4.1 x 1.5 x 3.5 cm. There is increased attenuation within the left tentorium consistent with blood. SKULL: No mass or other significant visible lesion. SINUSES: There is mucosal thickening in the left sphenoid sinus. ORBITS: Limited views are unremarkable. OTHER: Negative. CONCLUSION: 1. Left temporoparietal epidural hematoma is present. There is also blood in the left tentorium. Continued Report - Page 2 of 2 Patient: ELLI GUERRERO Phone#: : 1960 Age: 58 Gender: F Pt. Type: ER Account: [id number] Location: 052 Ordering: DR. FCO DE LEÓN Exam Date: 10/13/2018/15:20 Family Phys: YANDEL BUSH Charge Code: [id number] Physician: Creek Order #: [id number] DLP Dose#: 52.30 mGy 2. There is a 6-7 mm midline shift to the right. Dictated by: Carmen Correa MD on 10/13/2018 at 15:38 Approved by: Carmen Correa MD on 10/13/2018 at 15:38 EMERGENCY REPORT Observed: 10/13/2018 Status: F Source: [facility] 2:17 PM [facility] EMERGENCY ROOM REPORT NAME ACCOUNT SEX AGE ADMIT DISCHARGE PT MED. RECORD# NUMBER DATE DATE TYPE Sonja [id number] F 58 10/13/18 3 ELLI Vargas [id number] ROOM: ER DATE OF : 1960 DICTATING PHYSICIAN: Fco De León CHIEF COMPLAINT: Headache, dizziness, and vomiting. HISTORY OF PRESENT ILLNESS: The patient is a 58-year-old female who presents to the emergency department with the chief complaint as stated above. She said at 10 o'clock this morning she slipped on the pee on the puppy pad and hit her head off the counter. She said she immediately had a headache and some nausea, but she was babysitting her grandchild and had to take her to the doctors appointment. Once her was done with the doctors appointment, she called her daughter and she brought her in because she was dizzy, vomiting, and had a headache. On ED arrival, she is awake, alert, vomiting with dizziness and complains of headache. No neck pain, chest pain, shortness of breath, positive nausea, positive vomiting. No diarrhea or urinary complaints. She states that she has no neck tenderness and has been walking around with this headache since 10 o'clock this morning. She has no history of head, neck, chest, back, or abdominal trauma in the past. PAST MEDICAL HISTORY: Bipolar disorder, [id number]-wylcyjfmj diabetes, high blood pressure, and lupus. PAST SURGICAL HISTORY: Hip, foot, tubal ligation. MEDICATIONS: See nursing notes. ALLERGIES: None. FAMILY HISTORY: Noncontributory. SOCIAL HISTORY: Denies alcohol, tobacco, or illicit drug abuse. REVIEW OF SYSTEMS: Ten systems reviewed and present above in the HPI. PHYSICAL EXAMINATION: Vital signs: Blood pressure 137/63, pulse 62, respiratory rate 16, temperature 97.7, O2 saturation 95% on room air. General: The patient is vomiting, awake, alert and GCS of 15. No external signs of trauma to her head. Pupils are equal and reactive to light bilaterally. Mucous membranes are moist. Midface is stable. Teeth are intact. No midline cervical tenderness. She is moving her neck all about on the bed. Heart rate and rhythm are regular without murmur, gallop, or rub. Page 1 of 2 ELLI GUERRERO Emergency Room Report Lungs: Clear to auscultation bilaterally without wheeze, rales, or rhonchi. Abdomen: Soft. No tenderness, guarding, rebound, or rigidity. Cranial nerves II-XII are grossly intact without focal or neurologic deficit, motor or sensory abnormality. She also has a small abrasion to her left knee. DIAGNOSTIC DATA: We got an acute CT of her head and cervical spine. She has a 3.5 x 4.15 epidural bleed with mild subdural bleed. No parenchymal involvement with a 6 to 7 mm midline shift. Her CT of the cervical spine is negative. EMERGENCY DEPARTMENT COURSE AND TREATMENT: I immediately contacted neurosurgery at [facility], accepting physician is Dr. Irving, and she was accepted at 1543 hours. DIAGNOSIS: Acute epidural/subdural bleed with midline shift status post fall. PLAN/DISPOSITION: We have contacted 2 [employer] helicopters, neither is flying, so we are making arrangements for stat transport ground to [facility]. The patient is awake, alert, and as long as she does not move her head her nausea is controlled. She has a stable blood pressure, does not require intubation at this moment, and is going to be transferred in serious condition. Dictated By: Fco De León DO 10/13/18 15:57 JOB #: [id number] Transcribed By: am 10/13/18 16:27 Electronically signed by: E-Sign: FCO DE LEÓN MD 10/14/18 12:00 Page 2 of 2 ELLI GUERRERO Emergency Room Report Observed: 10/13/2018 Status: F Source: [facility] MRSA SCREEN 3:49 AM HEALTH SYSTEM REPOSITORY Test performed at [facility] No MRSA detected. Performed By: #### MRSA #### [facility] [address] [place], [place] [address] PLATELET COUNT Collected: 10/09/2018 Status: F Source: [facility] 4:52 PM [facility] REPOSITORY TYPE CODE TESTS RESULT OUT OF REFERENCE UNITS RANGE LAB PLTCT 150-400 k/uL Low Platelet Count 125 Performed By: #### PLTCT, PTHI, ICA #### [facility] [address] [place], [place] [address] PTH, INTACT Collected: 10/09/2018 Status: F Source: [facility] 4:[address] [facility] [place] REPOSITORY TYPE CODE TESTS RESULT OUT OF REFERENCE UNITS RANGE LAB PTH 15-65 pg/mL PTH, Intact 53 Performed By: #### PLTCT, PTHI, ICA #### [facility] [address] [place], [place] [address] CALCIUM, IONIZED Collected: 10/09/2018 Status: F Source: [facility] 4:52 PM [facility] REPOSITORY TYPE CODE TESTS RESULT OUT OF REFERENCE UNITS RANGE LAB ICAL 1.08-1.30 mmol/L Calcium, High Ionized 1.34 LAB NCA 1.08-1.30 mmol/L Calcium, High Normalized 1.32 Performed By: #### PLTCT, PTHI, ICA #### [facility] [address] [place], [place] [address] PROGRESS Observed: 10/09/2018 Status: COMPLETED Source: [facility] 4:10 PM [facility] REPOSITORY HNO ID: [id number] Author: Yandel Bush Service: (none) Author Type: Physician Type: Progress Notes Filed: 10/09/2018 5:18 PM Note Text: Patient presents with: F/U 3 Month URI Imm/Inj: Flu Vaccine HPI: Patient presents today for office visit for follow up. Uri symptoms x 2 days. Some scratchy throat. Runny nose. No fever or chills. No cough. HYPERTENSION:bp is well controlled. No chest pain or shortness of breath. No new edema. Hematology:labs are stable. GASTROENTEROLOGY:still seeing gi in [place]. They are thinking she could have autoimmune hepatitis. They are following. PSYCH:is overdue for zoloft refill. Feeling sad. No suicidal ideation currently. DM:sugars are stable. Component Latest Ref Rng AND Units 10/06/2018 WBC 3.70 - 11.00 k/uL 6.86 RBC 3.90 - 5.20 m/uL 4.37 Hemoglobin 11.5 - 15.5 g/dL 12.7 Hematocrit 36.0 - 46.0 % 40.0 MCV 80.0 - 100.0 fL 91.5 MCH 26.0 - 34.0 pG 29.1 MCHC 30.5 - 36.0 g/dL 31.8 RDW-CV 11.5 - 15.0 % 13.6 Platelet Count 150 - 400 k/uL 135 (L) MPV 9.0 - 12.7 fL 10.3 Neut% % 69.6 Abs Neut (ANC) 1.45 - 7.50 k/uL 4.75 Lymph% % 22.4 Abs Lymph 1.00 - 4.00 k/uL 1.54 Walsh% % 5.4 Abs Walsh <0.87 k/uL 0.37 Eosin% % 2.3 Abs Eosin <0.46 k/uL 0.16 Baso% % 0.3 Abs Baso <0.11 k/uL <0.03 Nucleated Reds 0 /100 WBC 0.0 Absolute nRBC <0.01 k/uL <0.01 Diff Type Auto Diff Protein, Total 6.3 - 8.0 g/dL 8.1 (H) Albumin 3.9 - 4.9 g/dL 4.6 Calcium 8.5 - 10.2 mg/dL 10.4 (H) Bilirubin, Total 0.2 - 1.3 mg/dL 0.5 Alkaline Phosphatase 34 - 123 U/L 117 AST 13 - 35 U/L 34 Glucose 74 - 99 mg/dL 124 (H) BUN 7 - 21 mg/dL 10 Creatinine 0.58 - 0.96 mg/dL 0.60 Sodium 136 - 144 mmol/L 140 Potassium 3.7 - 5.1 mmol/L 4.1 Chloride 97 - 105 mmol/L 101 CO2 22 - 30 mmol/L 27 Anion Gap 9 - 18 mmol/L 12 ALT 7 - 38 U/L 21 eGFR- >60 eGFR-All Other Races . >60 Iron 41 - 186 ug/dL 110 TIBC 232 - 386 ug/dL 405 (H) Transferrin Saturation 15 - 57 % 27 Hemoglobin A1C 4.3 - 5.6 % 7.0 (H) Estimated Average Glucose mg/dL 154 MEDICATIONS: Current Outpatient Prescriptions: Hydrochlorothiazide 12.5 mg capsule TAKE ONE CAPSULE BY MOUTH ONCE DAILY Ferrous Gluconate (FERGON) 324 mg (38 mg iron) tablet TAKE ONE TABLET BY MOUTH TWICE DAILY WITH MEALS pantoprazole DR (PROTONIX) 40 mg tablet TAKE ONE TABLET BY MOUTH ONCE DAILY metFORMIN (GLUCOPHAGE) 500 mg tablet Take 2 tablets by mouth twice daily with meals. glimepiride (AMARYL) 4 mg tablet Take 1 tablet by mouth daily with breakfast. FARXIGA 10 mg tab TAKE ONE TABLET BY MOUTH DAILY metoprolol succinate ER (TOPROL XL) 50 mg 24 hr tablet Take 1 tablet by mouth once daily. hydroxychloroquine (PLAQUENIL) 200 mg tablet Take by mouth twice daily. nitroglycerin sublingual (NITROQUICK) 0.4 mg SL tablet Dissolve 1 tablet under the tongue as needed. FOR CHEST PAIN. IF NO RELIEF CALL 911 lithium carbonate ER 450 mg CR tablet Take 2 tablets by mouth twice daily. (Patient taking differently: Take 450 mg by mouth twice daily. 450 mg in the morning and 900 mg in the evening. ) sertraline (ZOLOFT) 100 mg tablet Take 1 tablet by mouth twice daily. aspirin, enteric coated (ASPIR-LOW) 81 mg EC tablet Take 1 tablet by mouth once daily. No current facility-administered medications for this visit. ALLERGIES: ALLERGIES No Known Allergies PAST MEDICAL HISTORY Diagnosis Date - Anemia - Bipolar affect, depressed (HCC) - Diabetes mellitus - Elevated liver enzymes - Esophageal reflux - Fatty liver - GERD (gastroesophageal reflux disease) - Hypertension - Leukocytosis, unspecified - Obstructive sleep apnea (adult) (pediatric) - PAF (paroxysmal atrial fibrillation) (HCC) - Personal history of colonic polyps - Urge incontinence 02/01/2017 PAST SURGICAL HISTORY Procedure Laterality Date - APPENDECTOMY 1976 - COLONOSCOP W/ OR W/O [facility] SPEC 02/13/2017 Colonoscopy mac - COLONOSCOPY 04/17/2011 X6. TA in 2008 - EGD W/O OR W/BRUSH/WASH 06/09/14 EGD - EGD W/O OR W/BRUSH/WASH 02/13/2017 EGD mac - FOOT RIGHT OP SURGERY 1992 rebuilt bottom of right foot - HEART CATHETERIZATION - LIGATE FALLOPIAN TUBE 1982 - REMOVAL OF GALLBLADDER 1977 - SCREENING COLONOSCOPY, NOT HIGH RISK PT 04/17/2011 next 04/17/16, Dr. Dimitris Staton [place] - TOTAL ABDOM HYSTERECTOMY Hysterectomy, LEONILA - TOTAL HIP REPLACEMENT bilateral 2007 right hip, 2010 lef t hip FAMILY HISTORY Problem Relation Age of Onset - Diabetes Mother - Hypertension Mother - Cancer Father lung cancer - Diabetes Father - Heart Father CA x 2 - Hypertension Father - Diabetes Maternal Grandmother - Diabetes Maternal Grandfather - Diabetes Paternal Grandmother - Hypertension Paternal Grandmother - Diabetes Paternal Grandfather - Heart Paternal Grandfather CA Social History Marital status: Spouse name: Years of education: Number of children: 3 Social History Main Topics Smoking status: Former Smoker Packs/day: 1.00 Years: 9.00 Quit date: 01/08/1990 Smokeless tobacco: Former User Alcohol use: Yes Comment: extremely rare Drug use: No Sexual activity: No Other Topics Concern Service No Blood Transfusions Yes Seat Belt Yes Self-Exams No Reviewed current medications, allergies, past medical history, surgical history, family history and social history today. REVIEW OF SYSTEMS All other reviewed and negative other than HPI. HEALTH MAINTENANCE: Reviewed health maintenance issues today and recommended the following in detail. DTAP,TDAP,TD(1 - Tdap) due on 1978 INFLUENZA(1) due on 07/26/2018 VITALS: BP 120/68 Pulse 68 Temp 37.2 ?C (98.9 ?F) (Tympanic) Resp 20 Wt 116.1 kg (256 lb) BMI 43.60 kg/m? Last 4 Encounter Wt Readings: Date: Wt: 10/09/2018 116.1 kg (256 lb) 07/08/2018 115.3 kg (254 lb 3.2 oz) 04/03/2018 118.8 kg (262 lb) 12/27/2017 118.1 kg (260 lb 6.4 oz) PHYSICAL EXAMINATION: General appearance: Well appearing, alert, in no acute distress, well-hydrated, well nourished. Skin: Skin color, texture, turgor normal, no suspicious rashes or lesions Head: Normocephalic, no masses, lesions, tenderness or abnormalities Neck: Supple, no adenopathy; thyroid symmetric, normal size, no bruits Lungs: lungs clear to auscultation. No wheezing, rhonchi, rales Heart: RRR without murmur, gallop, or rubs. No ectopy Abdomen: Normal abdominal exam, Abdomen soft, non-tender. Bowel sounds normal. No masses, organomegaly Extremities: No deformities, edema, skin discoloration, clubbing or cyanosis. Good capillary refill. Musculoskeletal: No joint swelling, deformity, or tenderness ASSESSMENT/PLAN: 1. Type 2 diabetes mellitus without complication, without long-term current use of insulin (HCC) - ICD9: 250.00, ICD10: E11.9 (primary diagnosis) - continue meds. - HGB A1C 2. Need for vaccination - ICD9: V05.9, ICD10: Z23 - INFLUENZA VACCINE QUADRIVALENT AGE 3 YRS PLUS + IM 3. Fatty liver - ICD9: 571.8, ICD10: K76.0 - see gi. 4. Thrombocytopenia (HCC) - ICD9: 287.5, ICD10: D69.6 - call if any issues. - PLTCT (PLATELET COUNT) 5. Hypercalcemia - ICD9: 275.42, ICD10: E83.52 - PTH INTACT BLD - CALCIUM IONIZED B 6. Paroxysmal atrial fibrillation (HCC) - ICD9: 427.31, ICD10: I48.0 7. Essential hypertension - ICD9: 401.9, ICD10: I10 - good control - Continue current medication(s) - Recommended regular aerobic exercise. - Recommend home blood pressure monitoring, to bring results in on next visit - Goal of BP <130/80 8. Gastroesophageal reflux disease, esophagitis presence not specified - ICD9: 530.81, ICD10: K21.9 9. Anemia, unspecified type - ICD9: 285.9, ICD10: D64.9 10. Bipolar affective disorder, remission status unspecified (HCC) - ICD9: 296.80, ICD10: F31.9 - see psych 11. Morbid obesity (HCC) - ICD9: 278.01, ICD10: E66.01 12. Positive MATY (antinuclear antibody) - ICD9: 795.79, ICD10: R76.8 - continue to see rheum. Yandel Bush MD RTO in three months and prn. PROGRESS Observed: 10/09/2018 Status: COMPLETED Source: [place] 3:[address] [facility] [place] REPOSITORY HNO ID: [id number] Author: Joanne Andrade Ma Service: (none) Author Type: (none) Type: Progress Notes Filed: 10/09/2018 5:18 PM Note Text: 58 year old female here for INACTIVATED INFLUENZA VACCINE. 2764-5637 Season Patient is identified by name and date of : Yes [] CONTRAINDICATIONS color enhanced section Age less than 6 months? No Allergy to eggs, chicken, chicken feathers, or chicken dander? No Allergy to thimerosal (a preservative) or formaldehyde, gelatin? No History of severe reaction to any vaccine component or a previous dose of influenza vaccination? No History of Guillain-[place] Syndrome within 6 weeks after a previous influenza vaccine? No Patient is not moderately or severely ill? No Current temperature greater or equal to 100.4F? No History of Bone Marrow Transplant prior 6 months or solid organ transplant in the past 3 months ? No History of fainting after a prior injection or medical procedure? No- ? If patient has fainted in the past, the CDC recommends sitting or lying down for 15 minutes after the vaccination. [] VERIFICATION color enhanced section Was the answer Yes for any of the above contraindications? No contraindications present. Acceptable to proceed with vaccine. Patient/guardian agrees the above answers are true to the best of their knowledge? Yes Flu vaccine information sheet given? Yes See immunization activity in [facility] for details of immunizations adminstered today. Patient age: [age] year old For The 3040-6600 Flu Season 6-35 months old: Fluzone 0.25 ml - IM (Preservative Free) 3 years of age: Fluzone 0.5 ml - IM (Preservative Free) 3 years and older: Fluzone 0.5 ml- IM-(with Preservatives) 65+ years old: 2-49 years old Fluzone High-Dose 0.5 ml - IM (Preservative Free) FLUMIST- intranasal REMEMBER: If patient is less than 9 years of age and this is the first vaccine of Influenza to be received in any flu season, they should receive a second dose in one months time. CNOV Observed: 10/09/2018 Status: COMPLETED Source: [place] 3:00 PM [facility] REPOSITORY [facility] ELLI GUERRERO ([id number]) 1960 F Date Time Provider Department 10/09/18 3:00 PM YANDEL BUSH During your visit today, we recorded the following information about you: Temperature Pulse Respiration Blood pressure 98.9 degrees 68/minute 20/minute 120/68 Weight 116.1 kg Joanne Andrade Ma 10/09/2018 5:18 PM Signed 58 year old female here for INACTIVATED INFLUENZA VACCINE. Season Patient is identified by name and date of : Yes [] CONTRAINDICATIONS color enhanced section Age less than 6 months? No Allergy to eggs, chicken, chicken feathers, or chicken dander? No Allergy to thimerosal (a preservative) or formaldehyde, gelatin? No History of severe reaction to any vaccine component or a previous dose of influenza vaccination? No History of Guillain-[place] Syndrome within 6 weeks after a previous influenza vaccine? No Patient is not moderately or severely ill? No Current temperature greater or equal to 100.4F? No History of Bone Marrow Transplant prior 6 months or solid organ transplant in the past 3 months ? No History of fainting after a prior injection or medical procedure? No- ? If patient has fainted in the past, the CDC recommends sitting or lying down for 15 minutes after the vaccination. [] VERIFICATION color enhanced section Was the answer Yes for any of the above contraindications? No contraindications present. Acceptable to proceed with vaccine. Patient/guardian agrees the above answers are true to the best of their knowledge? Yes Flu vaccine information sheet given? Yes See immunization activity in [facility] for details of immunizations adminstered today. Patient age: [age] year old For The Flu Season 6-35 months old: Fluzone 0.25 ml - IM (Preservative Free) 3 years of age: Fluzone 0.5 ml - IM (Preservative Free) 3 years and older: Fluzone 0.5 ml- IM-(with Preservatives) 65+ years old: 2-49 years old Fluzone High-Dose 0.5 ml - IM (Preservative Free) FLUMIST- intranasal REMEMBER: If patient is less than 9 years of age and this is the first vaccine of Influenza to be received in any flu season, they should receive a second dose in one months time. Yandel Bush MD 10/09/2018 5:18 PM Signed Patient presents with: F/U 3 Month URI Imm/Inj: Flu Vaccine HPI: Patient presents today for office visit for follow up. Uri symptoms x 2 days. Some scratchy throat. Runny nose. No fever or chills. No cough. HYPERTENSION:bp is well controlled. No chest pain or shortness of breath. No new edema. Hematology:labs are stable. GASTROENTEROLOGY:still seeing gi in [place]. They are thinking she could have autoimmune hepatitis. They are following. PSYCH:is overdue for zoloft refill. Feeling sad. No suicidal ideation currently. DM:sugars are stable. Component Latest Ref Rng AND Units 10/06/2018 WBC 3.70 - 11.00 k/uL 6.86 RBC 3.90 - 5.20 m/uL 4.37 Hemoglobin 11.5 - 15.5 g/dL 12.7 Hematocrit 36.0 - 46.0 % 40.0 MCV 80.0 - 100.0 fL 91.5 MCH 26.0 - 34.0 pG 29.1 MCHC 30.5 - 36.0 g/dL 31.8 RDW-CV 11.5 - 15.0 % 13.6 Platelet Count 150 - 400 k/uL 135 (L) MPV 9.0 - 12.7 fL 10.3 Neut% % 69.6 Abs Neut (ANC) 1.45 - 7.50 k/uL 4.75 Lymph% % 22.4 Abs Lymph 1.00 - 4.00 k/uL 1.54 Walsh% % 5.4 Abs Walsh <0.87 k/uL 0.37 Eosin% % 2.3 Abs Eosin <0.46 k/uL 0.16 Baso% % 0.3 Abs Baso <0.11 k/uL <0.03 Nucleated Reds 0 /100 WBC 0.0 Absolute nRBC <0.01 k/uL <0.01 Diff Type Auto Diff Protein, Total 6.3 - 8.0 g/dL 8.1 (H) Albumin 3.9 - 4.9 g/dL 4.6 Calcium 8.5 - 10.2 mg/dL 10.4 (H) Bilirubin, Total 0.2 - 1.3 mg/dL 0.5 Alkaline Phosphatase 34 - 123 U/L 117 AST 13 - 35 U/L 34 Glucose 74 - 99 mg/dL 124 (H) BUN 7 - 21 mg/dL 10 Creatinine 0.58 - 0.96 mg/dL 0.60 Sodium 136 - 144 mmol/L 140 Potassium 3.7 - 5.1 mmol/L 4.1 Chloride 97 - 105 mmol/L 101 CO2 22 - 30 mmol/L 27 Anion Gap 9 - 18 mmol/L 12 ALT 7 - 38 U/L 21 eGFR- >60 eGFR-All Other Races . >60 Iron 41 - 186 ug/dL 110 TIBC 232 - 386 ug/dL 405 (H) Transferrin Saturation 15 - 57 % 27 Hemoglobin A1C 4.3 - 5.6 % 7.0 (H) Estimated Average Glucose mg/dL 154 MEDICATIONS: Current Outpatient Prescriptions: Hydrochlorothiazide 12.5 mg capsule TAKE ONE CAPSULE BY MOUTH ONCE DAILY Ferrous Gluconate (FERGON) 324 mg (38 mg iron) tablet TAKE ONE TABLET BY MOUTH TWICE DAILY WITH MEALS pantoprazole DR (PROTONIX) 40 mg tablet TAKE ONE TABLET BY MOUTH ONCE DAILY metFORMIN (GLUCOPHAGE) 500 mg tablet Take 2 tablets by mouth twice daily with meals. glimepiride (AMARYL) 4 mg tablet Take 1 tablet by mouth daily with breakfast. FARXIGA 10 mg tab TAKE ONE TABLET BY MOUTH DAILY metoprolol succinate ER (TOPROL XL) 50 mg 24 hr tablet Take 1 tablet by mouth once daily. hydroxychloroquine (PLAQUENIL) 200 mg tablet Take by mouth twice daily. nitroglycerin sublingual (NITROQUICK) 0.4 mg SL tablet Dissolve 1 tablet under the tongue as needed. FOR CHEST PAIN. IF NO RELIEF CALL 911 lithium carbonate ER 450 mg CR tablet Take 2 tablets by mouth twice daily. (Patient taking differently: Take 450 mg by mouth twice daily. 450 mg in the morning and 900 mg in the evening. ) sertraline (ZOLOFT) 100 mg tablet Take 1 tablet by mouth twice daily. aspirin, enteric coated (ASPIR-LOW) 81 mg EC tablet Take 1 tablet by mouth once daily. No current facility-administered medications for this visit. ALLERGIES: ALLERGIES No Known Allergies PAST MEDICAL HISTORY Diagnosis Date - Anemia - Bipolar affect, depressed (HCC) - Diabetes mellitus - Elevated liver enzymes - Esophageal reflux - Fatty liver - GERD (gastroesophageal reflux disease) - Hypertension - Leukocytosis, unspecified - Obstructive sleep apnea (adult) (pediatric) - PAF (paroxysmal atrial fibrillation) (HCC) - Personal history of colonic polyps - Urge incontinence 02/01/2017 PAST SURGICAL HISTORY Procedure Laterality Date - APPENDECTOMY 1976 - COLONOSCOP W/ OR W/O [facility] SPEC 02/13/2017 Colonoscopy mac - COLONOSCOPY 04/17/2011 X6. TA in 2008 - EGD W/O OR W/BRUSH/WASH 06/09/14 EGD - EGD W/O OR W/BRUSH/WASH 02/13/2017 EGD mac - FOOT RIGHT OP SURGERY 1992 rebuilt bottom of right foot - HEART CATHETERIZATION - LIGATE FALLOPIAN TUBE 1982 - REMOVAL OF GALLBLADDER 1977 - SCREENING COLONOSCOPY, NOT HIGH RISK PT 04/17/2011 next 04/17/16, Dr. Dimitris Staton [place] - TOTAL ABDOM HYSTERECTOMY Hysterectomy, LEONILA - TOTAL HIP REPLACEMENT bilateral 2007 right hip, 2010 lef t hip FAMILY HISTORY Problem Relation Age of Onset - Diabetes Mother - Hypertension Mother - Cancer Father lung cancer - Diabetes Father - Heart Father CA x 2 - Hypertension Father - Diabetes Maternal Grandmother - Diabetes Maternal Grandfather - Diabetes Paternal Grandmother - Hypertension Paternal Grandmother - Diabetes Paternal Grandfather - Heart Paternal Grandfather CA Social History Marital status: Spouse name: Years of education: Number of children: 3 Social History Main Topics Smoking status: Former Smoker Packs/day: 1.00 Years: 9.00 Quit date: 01/08/1990 Smokeless tobacco: Former User Alcohol use: Yes Comment: extremely rare Drug use: No Sexual activity: No Other Topics Concern Service No Blood Transfusions Yes Seat Belt Yes Self-Exams No Reviewed current medications, allergies, past medical history, surgical history, family history and social history today. REVIEW OF SYSTEMS All other reviewed and negative other than HPI. HEALTH MAINTENANCE: Reviewed health maintenance issues today and recommended the following in detail. DTAP,TDAP,TD(1 - Tdap) due on 1978 INFLUENZA(1) due on 07/26/2018 VITALS: BP 120/68 Pulse 68 Temp 37.2 ?C (98.9 ?F) (Tympanic) Resp 20 Wt 116.1 kg (256 lb) BMI 43.60 kg/m? Last 4 Encounter Wt Readings: Date: Wt: 10/09/2018 116.1 kg (256 lb) 07/08/2018 115.3 kg (254 lb 3.2 oz) 04/03/2018 118.8 kg (262 lb) 12/27/2017 118.1 kg (260 lb 6.4 oz) PHYSICAL EXAMINATION: General appearance: Well appearing, alert, in no acute distress, well-hydrated, well nourished. Skin: Skin color, texture, turgor normal, no suspicious rashes or lesions Head: Normocephalic, no masses, lesions, tenderness or abnormalities Neck: Supple, no adenopathy; thyroid symmetric, normal size, no bruits Lungs: lungs clear to auscultation. No wheezing, rhonchi, rales Heart: RRR without murmur, gallop, or rubs. No ectopy Abdomen: Normal abdominal exam, Abdomen soft, non-tender. Bowel sounds normal. No masses, organomegaly Extremities: No deformities, edema, skin discoloration, clubbing or cyanosis. Good capillary refill. Musculoskeletal: No joint swelling, deformity, or tenderness ASSESSMENT/PLAN: 1. Type 2 diabetes mellitus without complication, without long-term current use of insulin (HCC) - ICD9: 250.00, ICD10: E11.9 (primary diagnosis) - continue meds. - HGB A1C 2. Need for vaccination - ICD9: V05.9, ICD10: Z23 - INFLUENZA VACCINE QUADRIVALENT AGE 3 YRS PLUS + IM 3. Fatty liver - ICD9: 571.8, ICD10: K76.0 - see gi. 4. Thrombocytopenia (HCC) - ICD9: 287.5, ICD10: D69.6 - call if any issues. - PLTCT (PLATELET COUNT) 5. Hypercalcemia - ICD9: 275.42, ICD10: E83.52 - PTH INTACT BLD - CALCIUM IONIZED B 6. Paroxysmal atrial fibrillation (HCC) - ICD9: 427.31, ICD10: I48.0 7. Essential hypertension - ICD9: 401.9, ICD10: I10 - good control - Continue current medication(s) - Recommended regular aerobic exercise. - Recommend home blood pressure monitoring, to bring results in on next visit - Goal of BP <130/80 8. Gastroesophageal reflux disease, esophagitis presence not specified - ICD9: 530.81, ICD10: K21.9 9. Anemia, unspecified type - ICD9: 285.9, ICD10: D64.9 10. Bipolar affective disorder, remission status unspecified (HCC) - ICD9: 296.80, ICD10: F31.9 - see psych 11. Morbid obesity (HCC) - ICD9: 278.01, ICD10: E66.01 12. Positive MATY (antinuclear antibody) - ICD9: 795.79, ICD10: R76.8 - continue to see rheum. Yandel Bush MD RTO in three months and prn. Referring Provider: YANDEL BUSH [[id number]] Allergies As of Date: 10/09/2018 (No Known Allergies) Date Reviewed: 10/09/2018 Reviewed by: Joanne Andrade Ma - Fully Assessed Reason for Visit: F/U 3 Month [443] URI [115] Imm/Inj [58] Cmt: Flu Vaccine Reason For Visit History Recorded Primary Visit Diagnosis:Type 2 diabetes mellitus without complication, without long-term current use of insulin (HCC) [E11.9] Other Visit Diagnoses:Need for vaccination [Z23] Fatty liver [K76.0] Thrombocytopenia (HCC) [D69.6] Hypercalcemia [E83.52] Paroxysmal atrial fibrillation (HCC) [I48.0] Essential hypertension [I10] Gastroesophageal reflux disease, esophagitis presence not specified [K21.9] Anemia, unspecified type [D64.9] Bipolar affective disorder, remission status unspecified (HCC) [F31.9] Morbid obesity (HCC) [E66.01] Positive MATY (antinuclear antibody) [R76.8] Order(s):INFLUENZA VACCINE QUADRIVALENT AGE 3 YRS PLUS + IM [[id number]] Order #: [id number] PLTCT (PLATELET COUNT) [SQPLTCT] Order #: [id number] FUTURE PTH INTACT BLD [SQPTHI] Order #: [id number] FUTURE CALCIUM IONIZED B [SQICA] Order #: [id number] FUTURE HGB A1C [LHKDS4C] Order #: [id number] FUTURE Prescriptions as of 10/09/2018 Sig: HYDROCHLOROTHIAZIDE 12.5 MG C* TAKE ONE CAPSULE BY MOUTH ONC* FERROUS GLUCONATE 324 MG (38 * TAKE ONE TABLET BY MOUTH TWIC* PANTOPRAZOLE 40 MG TABLET,DEL* TAKE ONE TABLET BY MOUTH ONCE* METFORMIN 500 MG TABLET Take 2 tablets by mouth twice* GLIMEPIRIDE 4 MG TABLET Take 1 tablet by mouth daily * FARXIGA 10 MG TABLET TAKE ONE TABLET BY MOUTH DAILY METOPROLOL SUCCINATE ER 50 MG* Take 1 tablet by mouth once d* HYDROXYCHLOROQUINE 200 MG TAB* Take by mouth twice daily. NITROGLYCERIN 0.4 MG SUBLINGU* Dissolve 1 tablet under the t* LITHIUM CARBONATE ER 450 MG T* Take 2 tablets by mouth twice* Patient taking differently: Take 450 mg by mouth twice da* SERTRALINE 100 MG TABLET Take 1 tablet by mouth twice * ASPIRIN 81 MG TABLET,DELAYED * Take 1 tablet by mouth once d* Problem List As Of Date 10/09/2018 Noted Resolved Type 2 diabetes mellitus without complication (*INVALID FOR* Hypertension [I10] INVALID FOR* Bipolar affective disorder [F31.9] INVALID FOR* More... Morbid obesity [E66.01] INVALID FOR* Fatty liver [K76.0] INVALID FOR* More... Paroxysmal atrial fibrillation [I48.0] INVALID FOR* History of colonic polyps [Z86.010] INVALID FOR* Obstructive sleep apnea (adult) (pediatric) [G4*INVALID FOR* More... GERD (gastroesophageal reflux disease) [K21.9] INVALID FOR* More... Urge incontinence [N39.41] INVALID FOR* Positive MATY (antinuclear antibody) [R76.8] INVALID FOR* More... p [M32.9] INVALID FOR*04/03/2018 More... Iron deficiency anemia [D50.9] INVALID FOR* Anemia [D64.9] INVALID FOR* Obesity, Class III, BMI >= 40 [E66.01] INVALID FOR* Follow-up and Disposition History Recorded Letter Text . [facility] AUTHORIZATION FOR THE RELEASE OF MEDICAL INFORMATION FROM OTHER HEALTHCARE FACILITIES [facility] [address] [id number] Name: Elli Guerrero Date of : 1960 [address] [facility] [address] (home) Reason for Disclosure: Continuity of Care. Release Information From: Name of Provider/Facility: Dr[address]: City: __[place]__State:_[place]_ Zip: Fax: __[phone]__ Phone:__[phone]_ Release Information To: Office Receiving: Yandel Bush MD PLEASE FAX TO: [phone] I hereby authorize to release the health information indicated below that is contained in my patient records to the Recipient named above. I understand and acknowledge that this may include treatment for physical and mental illness, alcohol/drug abuse and or HIV/AIDS test results or diagnosis. This authorization does not include permission to release outpatient Psychotherapy Notes* as defined below. The release of Psychotherapy Notes requires a separate authorization. REPORTS REQUESTED: Office Visit This consent is subject to revocation at any time except to the extent the action has been taken thereon. This authorization and consent will in one year from the date of authorization written below. Your health care (or payment for care) will not be affected by whether or not you sign this authorization. Once your health care information is released, re-disclosure of your health care information by the Recipient my no longer be protected by law. Signature of Patient/Legal Guardian Printed Name Date Signed: ____/ / Relationship if not Patient If other than patient?s signature, a copy of the legal papers verifying authority (e.g. Power of Osteopathic Physician or Certificate) MUST accompany the authorization when presented. Exception: parent if signing for patient under age 18. *Psychotherapy Notes defined as notes that document private, joint, group or family counseling sessions that are from the rest of a patient?s medical record. Encounter Status:Closed by YANDEL BUSH MD on 10/09/18 CBC AND DIFFERENTIAL Collected: 10/06/2018 Status: F Source: [place] 1:[address] [facility] [place] REPOSITORY TYPE CODE TESTS RESULT OUT OF REFERENCE UNITS RANGE LAB WBC 3.70-11.00 k/uL WBC 6.86 LAB RBC 3.90-5.20 m/uL RBC 4.37 LAB HGB 11.5-15.5 g/dL Hemoglobin 12.7 LAB HCT 36.0-46.0 % Hematocrit 40.0 LAB MCV 80.0-100.0 fL MCV 91.5 LAB MCH 26.0-34.0 pG MCH 29.1 LAB MCHC 30.5-36.0 g/dL MCHC 31.8 LAB RDWCV 11.5-15.0 % RDW-CV 13.6 LAB PLTCT 150-400 k/uL Low Platelet Count 135 LAB MPV 9.0-12.7 fL MPV 10.3 LAB ANEUT % Neut% 69.6 LAB AANEUT 1.45-7.50 k/uL Abs Neut 4.75 LAB ALYMP % Lymph% 22.4 LAB AALYMP 1.00-4.00 k/uL Abs Lymph 1.54 LAB AMONO % Walsh% 5.4 LAB AAMONO <0.87 k/uL Abs Walsh 0.37 LAB AEOS % Eosin% 2.3 LAB AAEOS <0.46 k/uL Abs Eosin 0.16 LAB ABASO % Baso% 0.3 LAB AABASO <0.11 k/uL Abs Baso <0.03 LAB AUNRBC 0 /100 WBC NRBCs 0.0 LAB ABNRBC <0.01 k/uL Absolute nRBC <0.01 LAB DTYP DTYPE Auto Diff Performed By: #### CBCDIF, CMP, IRON, HBA1C #### [facility] [address] [place], [place] [address] COMP METABOLIC PANEL Collected: 10/06/2018 Status: F Source: [place] 1:[address] [facility] REPOSITORY TYPE CODE TESTS RESULT OUT OF REFERENCE UNITS RANGE LAB TP 6.3-8.0 g/dL Protein, High Total 8.1 LAB ALB 3.9-4.9 g/dL Albumin 4.6 LAB CA 8.5-10.2 mg/dL Calcium, High Total 10.4 LAB TBIL 0.2-1.3 mg/dL Bilirubin, Total 0.5 LAB ALKP 34-123 U/L Alkaline Phosphatase 117 LAB AST 13-35 U/L AST 34 LAB GLU 74-99 mg/dL Glucose High 124 Result Comment: The [place] [employer] (ADA) provides guidance for cutoff values for fasting glucose and random glucose. The ADA defines fasting as no caloric intake for at least 8 hours. Fas ting plasma glucose results between 100 to 125 mg/dL indicate increased risk for diabetes (prediabetes). Fasting plasma glucose results greater than or equal to 126 mg/dL meet the criteria for diagnosis of diabetes. In the absence of unequivocal hyperglycemia, results should be confirmed by repeat testing. In a patient with classic symptoms of hyperglycemia or hyperglycemic crisis, random plasma glucose results greater than or equal to 200 mg/dL meet the criteria for diagnosis of diabetes. Reference: Standards of Medical Care in Diabetes 2016, [place] [employer]. Diabetes Care. 2016.39(Suppl 1). LAB BUN 7-21 mg/dL BUN 10 LAB CRET 0.58-0.96 mg/dL Creatinine 0.60 LAB NA 136-144 mmol/L Sodium 140 LAB K 3.7-5.1 mmol/L Potassium 4.1 LAB CL 97-105 mmol/L Chloride 101 LAB CO2 22-30 mmol/L CO2 27 LAB AGAP 9-18 mmol/L Anion Gap 12 LAB ALT 7-38 U/L ALT 21 LAB GFRAA eGFR- Amer. >60 LAB GFRNAA . eGFR-All Other Races >60 Result Comment: eGFR (Estimated GFR) Units of measure: mL/min/1.73 meters squared eGFR is derived from the reexpressed MDRD Study equation using the following parameters: serum creatinine, age, gender and race. The creatinine assay has been calibrated to be traceable to IDMS. An eGFR <60 mL/min/1.73m2 for >3 months is consistent with chronic kidney disease. Refer to KDOQI guidelines for clinical interpretation. In patients with unstable renal function, e.g. those with acute kidney injury, the eGFR may not accurately reflect actual GFR. Performed By: #### CBCDIF, CMP, IRON, HBA1C #### [facility] [employer] [address] [place] [address] IRON AND TIBC Collected: 10/06/2018 Status: F Source: [place] 1:35 PM [facility] REPOSITORY TYPE CODE TESTS RESULT OUT OF REFERENCE UNITS RANGE LAB IRN 41-186 ug/dL Iron 110 LAB TIBC 232-386 ug/dL TIBC High 405 LAB SAT 15-57 % Transferrin Saturatn 27 Performed By: #### CBCDIF, CMP, IRON, HBA1C #### [facility] [employer] [address] [place] [address] HEMOGLOBIN A1C Collected: 10/06/2018 Status: F Source: [place] 1:35 PM [facility] REPOSITORY TYPE CODE TESTS RESULT OUT OF REFERENCE UNITS RANGE LAB HGBA1C 4.3-5.6 % High Hemoglobin A1c 7.0 LAB HBA0 mg/dL Est. Average Glucose 154 Result Comment: eAG: (Estimated average glucose) is a calculated value from HgbA1c and is security representative of the average blood glucose level in the last 2-3 month period. Performed By: #### CBCDIF, CMP, IRON, HBA1C #### [facility] [address] [place], [place] [address] SMOOTH MUSCLE Collected: 09/05/2018 Status: F Source: [facility] ANTIBODY IGG [QUEST] 11:30 AM [facility] REPOSITORY TYPE CODE TESTS RESULT OUT OF REFERENCE UNITS RANGE LAB SMOOTH MUSCLE ANTIBODY IgG [QUEST](LOINC) SMOOTH MUSCLE ANTIBODY IgG [QUEST] Result Comment: _ANTI SMOOTH MUSCLE ABS_ ACTIN ANTIBODY (IGG) Reported: 09/08/2018 15:41 Status=F TEST RESULT FLAG RANGE UNITS ACTIN ANTIBODY (IGG) <20 <20 U 09/08/18.1553.rfl.COMPLETE.AMRR .75544-5 Reference Range: <20 U: Negative >or=20 U: Positive Antibodies recognizing actin are the main component of smooth muscle antibodies associated with auto- immune liver disease. Actin antibodies are found in approximately 75% of patients with autoimmune hepatitis (AIH) type 1, approximately 65% of patients with autoimmune cholangitis, approximately 30% of patients with primary biliary cirrhosis and approximately 2% of healthy controls. High values are closely correlated with AIH type 1. Test Performed by [facility], [facility], [address] [place] [id number] Lloyd Abdi M.D., Ph.D., Director of Laboratories , [place] [id number] Performed By: #### [id number] #### [facility],[address] [place] [address] CBC W/DIFF, AUTOMATED Collected: 08/20/2018 Status: F Source: [place] 10:35 AM [facility] REPOSITORY TYPE CODE TESTS RESULT OUT OF RANGE REFERENCE UNITS LAB L100.1000 4.4-11.0 K/mm3 Normal WBC 4.9 LAB L100.1200 4.2-5.4 M/mm3 Low RBC 4.01 LAB L100.1300 12.0-15.0 g/dl Low HGB 11.8 LAB L100.1400 37-47 % Low HCT 36.5 LAB L100.1500 81-99 fL Normal MCV 91.0 LAB L100.1600 27.0-32.0 pg Normal MCH 29.4 LAB L100.1700 32-36 g/gl Normal MCHC 32.3 LAB L100.1810 11.6-14.6 % High RDW CV 15.3 LAB L100.1820 35.1-43.9 fl High RDW SD 50.4 LAB L100.1900 150-450 K/mm3 Low PLT 122 LAB L100.2000 6.2-12.0 fl Normal MPV 10.0 LAB L100.2100 47-70 % Normal NEUT% 64.0 LAB L100.2200 19-41 % Normal LY% 26.9 LAB L100.2300 0-10 % Normal MONO% 6.0 LAB L100.2400 0-5 % Normal EO% 2.7 LAB L100.2500 0-1 % Normal BASO% 0.2 LAB L100.2550 0.0-0.9 % Normal IM GRAN % 0.200 Result Comment: IG% - Immature Granulocytes (promyelocytes, myelocytes and metamyelocytes) > 1% indicates that a LEFT SHIFT is Present. LAB L100.2620 2.0-7.7 X10 3/uL Normal Absolute Neut 3.1 LAB L100.2720 0.83-4.51 X10 3/ul Normal Absolute Lymph 1.31 Performed By: #### L100.0100 #### [facility] [place], [address] COMPREHENSIVE METABOLIC Collected: 08/20/2018 Status: F Source: [facility] 10:35 AM [facility] REPOSITORY TYPE CODE TESTS RESULT OUT OF RANGE REFERENCE UNITS LAB L501.0100 74-106 mg/dL High GLU 142 Result Comment: Fasting Glucose result greater than or equal to 126 mg/dL suggests DIABETES MELLITUS per A.D.A. criteria. Please note revised GLUCOSE reference range effective 2017. LAB L501.1000 7-18 mg/dL Normal BUN 11 LAB L501.1100 0.55-1.02 mg/dL Normal CREAT,SERUM 0.69 Result Comment: The validity of the calculated GFR AND GFRAA in patients over 70 years has not been determined. Clinical correlation is essential. LAB L501.1110 >60 mL/min Normal EST GFR 92 Result Comment: Non- GFR Calc LAB L501.1115 >60 mL/min Normal EST GFR - AA 112 Result Comment: GFR Calc LAB L501.1300 10-20 RATIO Normal BUN/CRE 15.9 LAB L501.1500 6.4-8.2 g/dL T Normal PROT 8.2 LAB L501.1800 3.2-5.0 g/dL Normal ALB 4.0 LAB L501.1950 2.2-4.2 g/dL Normal GLOB 4.2 LAB L501.2000 0.9-2.4 RATIO Normal A/G 1.0 LAB L501.2200 8.5-10.1 mg/dL CA Normal 9.5 LAB L501.4100 15-37 U/L Normal AST 30 LAB L501.4305 45-117 U/L High ALK P 123 LAB L501.4405 13-56 U/L Normal ALT 28 LAB L501.4600 0.20-1.00 mg/dL T Normal BILI 0.80 LAB L501.5300 136-145 mmol/L NA Normal 140 LAB L501.5600 3.5-5.1 mmol/L K Normal 4.0 LAB L501.5900 98-107 mmol/L CL Normal 106 LAB L501.6100 21.0-32.0 mmol/L Normal CO2 26.0 LAB L501.6200 5-15 Normal GAP 8 Performed By: #### L500.4050 #### [facility] [address] [place], [address] PROTHROMBIN TIME AND Collected: 08/08/2018 Status: F Source: [facility] INR 11:14 AM [facility] REPOSITORY TYPE CODE TESTS RESULT OUT OF REFERENCE UNITS RANGE LAB PROTHROMBIN TIME AND INR(LOINC) PROTHROMBIN TIME AND INR Result Comment: PROTHROMBIN TIME AND INR LAB PT-COUMADIN(LOINC) sec PT-COUMADIN 13.2 LAB INR(LOINC) 0.8 - 1.2 INR 1.2 Result Comment: THE HEMOSIL THROMBOPLASTIN REAGENT USED IN THE PROTHROMBIN TIME TEST INTERACTS WITH THE DRUG CUBICIN (DAPTOMYCIN) AND WILL RESULT IN FALSELY ELEVATED PT / INR RESULTS INR INTERPRETATION INR INDICATION PREVENTION AND TREATMENT OF THROMBOEMBOLISM ASSOCIATED WITH: 2.0 - 3.0 ATRIAL FIBRILLATION, BIOPROSTHETIC HEART VALVES, PULMONARY EMBOLISM, VENOUS THROMBOSIS, SYSTEMIC EMBOLISM POST MYOCARDIAL INFARCTION 2.5 - 3.5 MECHANICAL HEART VALVES Performed By: #### [id number] #### [place] [address] HEPATIC FUNCTION Collected: 08/08/2018 Status: F Source: [facility] PANEL 11:14 AM [facility] REPOSITORY TYPE CODE TESTS RESULT OUT OF REFERENCE UNITS RANGE LAB HEPATIC FUNCTION PANEL(LOINC) HEPATIC FUNCTION PANEL Result Comment: HEPATIC FUNCTION PROFILE LAB ALBUMIN(LOINC) 3.4 - 4.8 g/dL ALBUMIN 4.3 LAB ALK PHOS(LOINC) 38 - 126 U/L ALK PHOS 99 LAB AST/SGOT(LOINC) 13 - 39 U/L AST/SGOT 28 LAB ALT/SGPT(LOINC) 8 - 35 U/L ALT/SGPT 22 LAB TOTAL BILI(LOINC) 0.0 - 1.5 mg/dl TOTAL BILI 0.8 LAB DIRECT BILI(LOINC) 0.0 - 0.1 mg/dl DIRECT BILI 0.1 LAB TOTAL PROTEIN(LOINC) 6.4 - 8.3 g/dl TOTAL PROTEIN 7.9 Performed By: #### [id number] #### [place] [id number] BMP WITH EGFR Collected: 08/08/2018 Status: F Source: [facility] 11:14 [facility] REPOSITORY TYPE CODE TESTS RESULT OUT OF RANGE REFERENCE UNITS LAB BMP with eGFR(LOINC) BMP with eGFR Result Comment: BASIC METABOLIC PANEL LAB SODIUM(LOINC) 136 - 145 mmol/l SODIUM 138 LAB POTASSIUM(LOINC) 3.5 - 5.1 mmol/L POTASSIUM 3.9 LAB CHLORIDE(LOINC) 98 - 107 mmol/L CHLORIDE 105 LAB CO2(LOINC) 21.0 - mmol/L 31.0 CO2 23.9 LAB GLUCOSE(LOINC) 74 - 106 mg/dl GLUCOSE High 144 LAB BUN(LOINC) 6 - 20 mg/dl BUN 9 LAB CREATININE(LOINC) 0.6 - 1.2 mg/dl CREATININE 0.6 LAB CALCIUM(LOINC) 8.6 - mg/dl 10.2 CALCIUM 10.2 LAB ANION GAP(LOINC) 10 - 20 mmol/L ANION GAP 13 LAB AGE(LOINC) years AGE 57 LAB eGFR(LOINC) 60 - 999 ML/MINUTE eGFR >60 LAB eGFR(AA)(LOINC) 60 - 999 ML/MINUTE eGFR(AA) >60 Result Comment: ACCORDING TO THE NATIONAL KIDNEY DISEASE EDUCATION PROGRAM(NKDE), A NORMAL eGFR IS A VALUE GREATER THAN OR EQUAL TO 60 ML/MIN/1.73 SQ METERS. CHRONIC KIDNEY DISEASE: <60mL/MIN/1.73 SQ METERS KIDNEY FAILURE: <15mL/MIN/1.73 SQ METERS THIS TEST SHOULD ONLY BE USED FOR PATIENTS 18 YEARS OF AGE AND OLDER. Performed By: #### [id number] #### [facility],[address] [place] [address] HEP B CORE AB IGM Collected: 08/08/2018 Status: F Source: [facility] 11:14 AM [facility] REPOSITORY TYPE CODE TESTS RESULT OUT OF RANGE REFERENCE UNITS LAB [facility] HEP B CORE AB IGM Result Comment: _HEP B CORE AB IGM_ HEPATITIS B CORE AB (IGM) Reported: 08/10/2018 20:23 Status=F TEST RESULT FLAG RANGE UNITS HEPATITIS B CORE AB (IGM) Nonreactive Nonreactive 08/10/18.rflRHODA.AMRR .66942-5 Test Performed by [facility], [facility], [address] [place] [address] Lloyd Abdi M.D., Ph.D., Director of [employer] , [place] [id number] Performed By: #### [id number] #### [facility],[address] [place] [address] HEP C VIRUS AB WITH Collected: 08/08/2018 Status: F Source: [facility] REFLEX [QUEST] 11:14 AM [facility] REPOSITORY TYPE CODE TESTS RESULT OUT OF REFERENCE UNITS RANGE LAB HEP C VIRUS AB WITH REFLEX [QUEST](LOINC HEP C ) VIRUS AB WITH REFLEX [QUEST] Result Comment: _HEP C VIRUS AB_ HEPATITIS C AB W/REFL HCV RNA, QN REAL-TIME PCR Reported: 08/10/2018 20:24 Status=F TEST RESULT FLAG RANGE UNITS HEPATITIS C ANTIBODY Nonreactive Nonreactive 08/10/18.rflLynneCOMPLETE.AMRR .55384-5 SIGNAL TO CUTOFF 0.06 <1.00 ratio 08/10/18.rflLynneCOMPLETE.AMRR .12044-5 HCV antibody was Nonreactive. There is no laboratory evidence of HCV infection. In most cases, no further action is required. However, if recent HCV exposure is suspected, a test for HCV RNA (test code 12938) is suggested. For additional information please refer to http://education.Vital Therapies/faq/WSJ63u4 (This link is being provided for informational/ educational purposes only.) ADDITIONAL TESTING Not indicated 08/10/18.5.rfl.COMPLETE.AMRR Test Performed by [facility], [employer] [facility], [address] [place] [address] Lloyd Abdi M.D., Ph.D., Director of Laboratories , [facility] [id number] 08/11/18.812.XMT.SENT REF 08/11/18.XMT.SENT REF Performed By: #### [id number] #### [facility],[address] [place] [address] SMOOTH MUSCLE Collected: 08/08/2018 Status: F Source: [facility] ANTIBODY IGG [QUEST] 11:14 AM [facility] REPOSITORY TYPE CODE TESTS RESULT OUT OF REFERENCE UNITS RANGE LAB SMOOTH MUSCLE ANTIBODY IgG [QUEST](LOINC) SMOOTH MUSCLE ANTIBODY IgG [QUEST] Result Comment: _ANTI SMOOTH MUSCLE ABS_ ACTIN ANTIBODY (IGG) Reported: 08/11/2018 18:52 Status=F TEST RESULT FLAG RANGE UNITS ACTIN ANTIBODY (IGG) 23 H <20 U 08/11/18.1903.rfl.COMPLETE.AMRR .31739-3 Reference Range: <20 U: Negative >or=20 U: Positive Antibodies recognizing actin are the main component of smooth muscle antibodies associated with auto- immune liver disease. Actin antibodies are found in approximately 75% of patients with autoimmune hepatitis (AIH) type 1, approximately 65% of patients with autoimmune cholangitis, approximately 30% of patients with primary biliary cirrhosis and approximately 2% of healthy controls. High values are closely correlated with AIH type 1. Test Performed by [facility], [employer] [facility], [address] [place] [address] Lloyd Abdi M.D., Ph.D., Director of Laboratories , [facility] [id number] Performed By: #### [id number] #### [facility],[address] [place] [address] CBC Collected: 07/24/2018 Status: F Source: [facility] 9:18 AM [facility] REPOSITORY TYPE CODE TESTS RESULT OUT OF RANGE REFERENCE UNITS LAB CBC(LOINC) CBC Result Comment: CBC-COMPLETE BLOOD COUNT LAB WBC(LOINC) 4.5 - 10.8 x 10EE3/UL WBC 4.6 LAB RBC(LOINC) 4.10 - x 10EE6/UL 5.30 RBC Low 4.07 LAB HEMOGLOBIN(LOINC) 12.0 - g/dl 16.0 HEMOGLOBIN 12.1 LAB HEMATOCRIT(LOINC) 34.0 - % 46.0 HEMATOCRIT 35.3 LAB MCV(LOINC) 80 - 99 fl MCV 87 LAB MCH(LOINC) 27 - 33 pg MCH 30 LAB MCHC(LOINC) 32 - 36 X10 3 MCHC 34 LAB RDW/CV(LOINC) 12.0 - % 15.6 RDW/CV 15.2 LAB PLATELET(LOINC) 150 - 450 x10EE3/UL PLATELET Low 112 LAB MPV(LOINC) 6.6 - 10.5 fl MPV 8.4 Result Comment: AUTOMATED DIFFERENTIAL LAB NEUT %(LOINC) 46.0 - 76.0 % NEUT % 71.4 LAB LYMPH %(LOINC) 20.0 - 45.0 % LYMPH % 21.3 LAB MONOS %(LOINC) 0.0 - 10.0 % MONOS % 4.7 LAB EO %(LOINC) 0.0 - 7.0 % EO % 2.4 LAB BASO %(LOINC) 0.0 - 2.0 % BASO % 0.2 LAB Lymph #(LOINC) 0.80 - 2.80 x10EE3/U L Lymph # 1.00 LAB Neut #(LOINC) 1.50 - 7.10 x10EE3/U L Neut # 3.30 LAB Walsh #(LOINC) 0.20 - 1.00 x10EE3/U L Walsh # 0.20 LAB EO #(LOINC) 0.00 - 0.50 x10EE3/U L EO # 0.10 LAB Baso #(LOINC) 0.00 - 0.10 x10EE3/U L Baso # 0.00 LAB MANUAL DIFF(LOINC) MANUAL DIFF N/A LAB MORPHOLOGY(LOINC ) MORPHOLOGY N/A Result Comment: {CD] Performed By: #### [id number] #### [place] [address] FERRITIN Collected: 07/24/2018 Status: F Source: [facility] 9:18 [facility] REPOSITORY TYPE CODE TESTS RESULT OUT OF REFERENCE UNITS RANGE LAB FERRITIN(LO 10 - 291 ng/mL INC) FERRITIN 52 Performed By: #### [id number] #### [place] [address] IRON AND UIBC Collected: 07/24/2018 Status: F Source: [facility] 9:18 [facility] REPOSITORY TYPE CODE TESTS RESULT OUT OF RANGE REFERENCE UNITS LAB IRON(LOINC) 50 - 170 ug/dl IRON 92 LAB UIBC(LOINC) 155 - 355 ug/dL UIBC 348 LAB TIBC(LOINC) 250 - 450 ug/dl TIBC 440 LAB Sat%(LOINC) 20 - 50 % Sat% 21 Performed By: #### [id number] #### [place] [address] CERULOPLASMIN [QUEST] Collected: 07/24/2018 Status: F Source: [facility] 9:18 [facility] REPOSITORY TYPE CODE TESTS RESULT OUT OF REFERENCE UNITS RANGE LAB CERULOPLASMIN [QUEST](LOINC) CERULOPLASMIN [QUEST] Result Comment: _CERULOPLASMIN_ CERULOPLASMIN Reported: 07/26/2018 15:55 Status=F TEST RESULT FLAG RANGE UNITS CERULOPLASMIN 32 18-53 mg/dL 07/26/18.1608.rfl.COMPLETE.AMRR .2064-4 Test Performed by [facility], [facility], [address] [place] [address] Lloyd Abdi M.D., Ph.D., Director of Laboratories , [facility] [id number] Performed By: #### [id number] #### [facility],[address] [place] [address] HEP B SURF AB QUANT Collected: 07/24/2018 Status: F Source: [facility] [QUEST] 9:18 [facility] REPOSITORY TYPE CODE TESTS RESULT OUT OF REFERENCE UNITS RANGE LAB HEP B SURF AB QUANT [QUEST](LOIN C) HEP B SURF AB QUANT [QUEST] Result Comment: _HEP B SURF AB QUANT_ HEPATITIS B SURFACE ANTIBODY IMMUNITY, (QUANT) Reported: 07/26/2018 20:06 Status=F TEST RESULT FLAG RANGE UNITS HEP B SURF AB IMMUNITY,QN <5 L >=10 mIU/mL 07/26/18.2017.rfl.COMPLETE.AMRR .5193-8 PATIENT DOES NOT HAVE IMMUNITY TO HEPATITIS B VIRUS. For more information on this test, go to: http://GrandCentral.Vital Therapies/faq/UQY306 Test Performed by [facility], [employer] [facility], [address] [place] [address] Lloyd Abdi M.D., Ph.D., Director of [employer] , [facility] [id number] Performed By: #### [id number] #### [facility],[address] [place] [address] HEP A AB TOTAL Collected: 07/24/2018 Status: F Source: [facility] 9:18 AM [facility] REPOSITORY TYPE CODE TESTS RESULT OUT OF RANGE REFERENCE UNITS LAB HEP A AB TOTAL(LOINC ) HEP A AB TOTAL Result Comment: _HEP A AB TOTAL_ HEPATITIS A AB, TOTAL Reported: 07/26/2018 20:06 Status=F TEST RESULT FLAG RANGE UNITS HEPATITIS A AB, TOTAL Nonreactive Nonreactive 07/26/18.2016.rflRHODA.AMRR .01085-3 Test Performed by [facility], [address] [place] [address] Lloyd Abdi M.D., Ph.D., Director of Laboratories , [facility] [id number] Performed By: #### [id number] #### [facility],[address] [place], [place] [id number] MITOCHONDRIAL AB W/ Collected: 07/24/2018 Status: F Source: [facility] REFLEX TITER [QUEST] 9:18 AM [facility] REPOSITORY TYPE CODE TESTS RESULT OUT OF REFERENCE UNITS RANGE LAB MITOCHONDRIAL AB W/ REFLEX TITER [Quest](LOINC) MITOCHONDRIAL AB W/ REFLEX TITER [Quest] Result Comment: _ANTI MITOCHONDRIAL ABs_ MITOCHONDRIAL ANTIBODY W/REFLEX TO TITER Reported: 07/27/2018 21:07 Status=F TEST RESULT FLAG RANGE UNITS MITOCHONDRIAL ANTIBODY Negative Negative 07/27/18.9.rflRHODA.AMRR .65799-1 SCREEN Test Performed by [facility], [address] [place] [address] Lloyd Abdi M.D., Ph.D., Director of [employer] , CLIA [id number] Performed By: #### [id number] #### [facility],[address] [place] [address] ANTI NUCLEAR AB MATY Collected: 07/24/2018 Status: F [facility] W/ REFLEX TITER [QU] 9:18 AM [facility] REPOSITORY TYPE CODE TESTS RESULT OUT OF REFERENCE UNITS RANGE LAB ANTI NUCLEAR AB MATY W/ REFLEX TITER [QU](LOINC) ANTI NUCLEAR AB MATY W/ REFLEX TITER [QU] Result Comment: _ANTI NUCLEAR AB MATY W/ REFLEX TITER_ MATY SCREEN, IFA Positive A Negative 07/29/18.rfl.COMPLETE.AMRR .80743-5 MATY IFA is a first line screen for detecting the presence of up to approximately 150 autoantibodies in various autoimmune diseases. A positive MATY IFA result is suggestive of autoimmune disease and reflexes to titer and pattern. Further laboratory testing may be considered if clinically indicated. ADDITIONAL TESTING Has been added 07/29/18.rfl.COMPLETE.AMRR Test Performed by [facility] [place], [employer] [facility], [address] [place] [id number] Lloyd Abdi M.D., Ph.D., Director of Laboratories , [facility] [id number] MATY, TITER AND PATTERN Reported: 07/29/2018 22:37 Status=F TEST RESULT FLAG RANGE UNITS MATY TITER 1:40 A Negative 07/29/18.rfl.COMPLETE.AMRR .5048-4 A low level MATY titer may be present in pre-clinical autoimmune diseases and normal individuals. Reference Range: <1:40 Negative 1:40-1:80 Low Antibody Level >1:80 Elevated Antibody Level Visit Physician FAQs for interpretation of all antibodies in the [place], prevalence, and association with diseases at http://education.Ebyline/faq/ILS718 Test Performed by [facility], [facility] [place] [facility], [address] [place] [address] Lloyd Abdi M.D., Ph.D., Director of Laboratories , [facility] [id number] MATY PATTERN Homogeneous 07/29/18.2249.[facility].AMRR .38017-9 Homogeneous pattern is associated with systemic lupus erythematosus (SLE), drug-induced lupus and juvenile idiopathic arthritis. Performed By: #### [id number] #### [facility],[address] [place] [address] ALPHA-1 ANTITRYPSIN Collected: 07/24/2018 Status: F Source: [facility] TOTAL [QUEST] 9:18 [facility] REPOSITORY TYPE CODE TESTS RESULT OUT OF REFERENCE UNITS RANGE LAB ALPHA-1 ANTITRYPSIN TOTAL ALPHA-1 [QUEST](LOINC) ANTITRYPSIN TOTAL [QUEST] Result Comment: _WGHRH-3-YBVJCRLTHYJ_ LHEKR-8-NGTAHTHUTTM QUANTITATION Reported: 07/30/2018 21:33 Status=F TEST RESULT FLAG RANGE UNITS EEIOK-8-KEAZWBPOOWF QN 155 83-199 mg/dL 07/30/18.2144.rfl.COMPLETE.AMRR .1825-9 Test Performed by [facility] [place], [facility], [address] [place] [address] Lloyd Abdi M.D., Ph.D., Director of Laboratories , CL[facility] [id number] Performed By: #### [id number] #### [facility],[address] [place] [address] ABD COMPLETE Observed: 07/24/2018 Status: F Source: [facility] 9:04 AM [place] [address] Patient: ELLI GUERRERO Phone#: : [phone] Age: 57 Gender: F Pt. Type: Out Account: [id number] Location: [facility] Ordering: BETH BYRD Exam Date: 07/24/2018/8:12 Family Phys: YANDEL BUSH Charge Code: [id number] Physician: Creek Order #: [id number] DLP Dose#: PROCEDURE: ABDOMEN COMPLETE ULTRASOUND COMPARISON: [facility], , ABDOMEN W W/O CON, 10/09/2017, 9:53. INDICATIONS: Enlarged liver TECHNIQUE: High resolution sonographic examination was performed of the abdomen. FINDINGS: LIVER: Diffusely increased echogenicity of the liver, this is nonspecific but most often do to diffuse fatty infiltration, fibrosis can appear similar. Mild peripheral nodularity noted, specifically in the left lobe of the liver. The liver measures 21.5 cm in length. Focal hypoechogenicity in the left lobe measures 0.4 x 5x 6 cm, most consistent with a cyst. BILIARY: The common bile duct measures 0.4 cm. PANCREAS: Pancreas not visualized. SPLEEN: Spleen is enlarged measuring 20.9 x 11.5 x 10.9 cm with a volume of 1378 mL. KIDNEYS: There is normal renal parenchymal echogenicity. No hydronephrosis. AORTA/VASCULAR: Normal. No aneurysm. Proximal aorta measures 1.8 x 1.8 cm. Mid aorta measures 1.9 x 1.7 cm. Distal aorta measures 1.8 x 2.0 cm. OTHER: Negative. CONCLUSION: 1. Probable diffuse fatty infiltration of the liver. 2. Hepatosplenomegaly. Dictated by: Lupe Azevedo MD on 07/24/2018 at 14:53 Approved by: Lupe Azevedo MD on 07/24/2018 at 14:53 PROGRESS Observed: 07/08/2018 Status: COMPLETED Source: [place] 3:[address] [facility] [place] REPOSITORY O ID: [id number] Author: Yandel Bush Service: (none) Author Type: Physician Type: Progress Notes Filed: 07/08/2018 3:44 PM Note Text: Patient presents with: Recheck HPI: Patient presents today for office visit for follow up. DM: her hba1c is improving. She has lost weight by default. Does not like the taste of a lot of foot. She feels it is med related and is happy with weight loss. She is not checking sugars. RHEUM:having some pain still. Dr. Myers is following her. Has changed meds. Feels she does not feel well on meds. She thinks that is affecting her intake. CARDIO:no chest pain or shortness of breath that is new Some swelling at times. Has had in the past. Has varicose veins and has been on her feet more. GASTROENTEROLOGY: she cancelled her last appt with her elementary reading specialist. She may be switching gi physicians. PSYCH:still seeing psychiatry. Stable. STEPAN: again does not treat. Component Latest Ref Rng AND Units 07/07/2018 WBC 3.70 - 11.00 k/uL 6.74 RBC 3.90 - 5.20 m/uL 4.31 Hemoglobin 11.5 - 15.5 g/dL 12.5 Hematocrit 36.0 - 46.0 % 39.1 MCV 80.0 - 100.0 fL 90.7 MCH 26.0 - 34.0 pG 29.0 MCHC 30.5 - 36.0 g/dL 32.0 RDW-CV 11.5 - 15.0 % 15.9 (H) Platelet Count 150 - 400 k/uL 134 (L) MPV 9.0 - 12.7 fL 10.6 Neut% % 69.8 Abs Neut (ANC) 1.45 - 7.50 k/uL 4.70 Lymph% % 23.0 Abs Lymph 1.00 - 4.00 k/uL 1.55 Walsh% % 4.7 Abs Walsh <0.87 k/uL 0.32 Eosin% % 2.2 Abs Eosin <0.46 k/uL 0.15 Baso% % 0.3 Abs Baso <0.11 k/uL <0.03 Nucleated Reds 0 /100 WBC 0.0 Absolute nRBC <0.01 k/uL <0.01 Diff Type Auto Diff Hemoglobin A1C 4.3 - 5.6 % 6.9 (H) Estimated Average Glucose mg/dL 151 MEDICATIONS: Current Outpatient Prescriptions: FARXIGA 10 mg tab TAKE ONE TABLET BY MOUTH DAILY Ferrous Gluconate 324 mg (36 mg iron) tab Take 1 tablet by mouth twice daily with meals. Hydrochlorothiazide 12.5 mg capsule Take 1 capsule by mouth once daily. pantoprazole DR (PROTONIX) 40 mg tablet Take 1 tablet by mouth once daily. metoprolol succinate ER (TOPROL XL) 50 mg 24 hr tablet Take 1 tablet by mouth once daily. hydroxychloroquine (PLAQUENIL) 200 mg tablet Take by mouth twice daily. nitroglycerin sublingual (NITROQUICK) 0.4 mg SL tablet Dissolve 1 tablet under the tongue as needed. FOR CHEST PAIN. IF NO RELIEF CALL 911 metFORMIN (GLUCOPHAGE) 500 mg tablet TAKE TWO TABLETS BY MOUTH TWICE DAILY WITH MEALS glimepiride (AMARYL) 4 mg tablet TAKE ONE TABLET BY MOUTH DAILY WITH BREAKFAST lithium carbonate ER 450 mg CR tablet Take 2 tablets by mouth twice daily. (Patient taking differently: Take 900 mg by mouth three times daily. ) aspirin, enteric coated (ASPIR-LOW) 81 mg EC tablet Take 1 tablet by mouth once daily. sertraline (ZOLOFT) 100 mg tablet Take 1 tablet by mouth twice daily. No current facility-administered medications for this visit. ALLERGIES: ALLERGIES No Known Allergies PAST MEDICAL HISTORY Diagnosis Date - Anemia - Bipolar affect, depressed (HCC) - Diabetes mellitus - Elevated liver enzymes - Esophageal reflux - Fatty liver - GERD (gastroesophageal reflux disease) - Hypertension - Leukocytosis, unspecified - Obstructive sleep apnea (adult) (pediatric) - PAF (paroxysmal atrial fibrillation) (HCC) - Personal history of colonic polyps - Urge incontinence 02/01/2017 PAST SURGICAL HISTORY Procedure Laterality Date - APPENDECTOMY 1976 - COLONOSCOP W/ OR W/O BRSH SPEC 02/13/2017 Colonoscopy mac - COLONOSCOPY 04/17/2011 X6. TA in 2008 - EGD W/O OR W/BRUSH/WASH 06/09/14 EGD - EGD W/O OR W/BRUSH/WASH 02/13/2017 EGD mac - FOOT RIGHT OP SURGERY 1992 rebuilt bottom of right foot - HEART CATHETERIZATION - LIGATE FALLOPIAN TUBE 1982 - REMOVAL OF GALLBLADDER 1977 - SCREENING COLONOSCOPY, NOT HIGH RISK PT 04/17/2011 next 04/17/16, Dr. Dimitris Staton Brule - TOTAL ABDOM HYSTERECTOMY Hysterectomy, LEONILA - TOTAL HIP REPLACEMENT bilateral 2007 right hip, 2010 lef t hip FAMILY HISTORY Problem Relation Age of Onset - Diabetes Mother - Hypertension Mother - Cancer Father lung cancer - Diabetes Father - Heart Father CA x 2 - Hypertension Father - Diabetes Maternal Grandmother - Diabetes Maternal Grandfather - Diabetes Paternal Grandmother - Hypertension Paternal Grandmother - Diabetes Paternal Grandfather - Heart Paternal Grandfather CA Social History Marital status: Spouse name: Years of education: Number of children: 3 Social History Main Topics Smoking status: Former Smoker Packs/day: 1.00 Years: 9.00 Quit date: 01/08/1990 Smokeless tobacco: Former User Alcohol use: Yes Comment: extremely rare Drug use: No Sexual activity: No Other Topics Concern Service No Blood Transfusions Yes Seat Belt Yes Self-Exams No Reviewed current medications, allergies, past medical history, surgical history, family history and social history today. REVIEW OF SYSTEMS GI: Negative for blood in stools or black stools, change in bowel habit : Negative All other reviewed and negative other than HPI. HEALTH MAINTENANCE: Reviewed health maintenance issues today and recommended the following in detail. DILATED RETINAL EXAM -recommended. INFLUENZA(1) due on 07/26/2018 VITALS: BP 124/78 (BP Site: Right Arm, BP Position: Sitting, BP Cuff Size: Large Adult) Pulse 62 Resp 18 Wt 115.3 kg (254 lb 3.2 oz) BMI 43.29 kg/m? Last 4 Encounter Wt Readings: Date: Wt: 07/08/2018 115.3 kg (254 lb 3.2 oz) 04/03/2018 118.8 kg (262 lb) 12/27/2017 118.1 kg (260 lb 6.4 oz) 12/05/2017 118.4 kg (261 lb) PHYSICAL EXAMINATION: General appearance: Well appearing, alert, in no acute distress, well-hydrated, well nourished. Skin: Skin color, texture, turgor normal, no suspicious rashes or lesions Lungs: Lungs clear to auscultation. No wheezing, rhonchi, rales Heart: RRR without murmur, gallop, or rubs. No ectopy Abdomen: Normal abdominal exam, Abdomen soft, non-tender. Bowel sounds normal. No masses, organomegaly Extremities: No deformities, edema, skin discoloration, clubbing or cyanosis. Good capillary refill. PSYCH:Affect normal. Normal speech. Normal eye contact ASSESSMENT/PLAN: 1. Anemia, unspecified type - ICD9: 285.9, ICD10: D64.9 (primary diagnosis) - monitor labs. Follow with gi. 2. Obesity, Class III, BMI 40-49.9 (morbid obesity) ([facility]) - ICD9: 278.01, ICD10: E66.01 - continue weight loas 3. Positive MATY (antinuclear antibody) - ICD9: 795.79, ICD10: R76.8 - continue to see psych. 4. Gastroesophageal reflux disease, esophagitis presence not specified - ICD9: 530.81, ICD10: K21.9 - Continue current medications. Notify us if any difficulties are noted. 5. Obstructive sleep apnea (adult) (pediatric) - ICD9: 327.23, ICD10: G47.33 - consider sleep med if worsens. 6. Iron deficiency anemia, unspecified iron deficiency anemia type - ICD9: 280.9, ICD10: D50.9 - recheck next ov - CBC + DIFF - IRON + TIBC 7. Type 2 diabetes mellitus without complication, without long-term current use of insulin ([facility]) - ICD9: 250.00, ICD10: E11.9 improved control - Continue current medications - HGB A1C - COMP METABOLIC PANEL 8. Bipolar affective disorder, remission status unspecified ([facility]) - ICD9: 296.80, ICD10: F31.9 - continue to see psych. 9. Essential hypertension - ICD9: 401.9, ICD10: I10 - good control - Continue current medication(s) - Goal of BP <140/90 10. Paroxysmal atrial fibrillation (HCC) - ICD9: 427.31, ICD10: I48.0 - per cardio Yandel Bush MD RTO in three monthss and prn. YUN Observed: 07/08/2018 Status: COMPLETED Source: [place] 3:00 PM [facility] REPOSITORY [facility] EUGENIOZANEELLI Reynolds ([id number]) 1960 F Date Time Provider Department 07/08/18 3:00 PM [facility]DEL [facility]USH [facility] During your visit today, we recorded the following information about you: Pulse Respiration Blood pressure Weight 62/minute 18/minute 124/78 115.3 kg Yandel Bush MD 07/08/2018 3:44 PM Signed Patient presents with: Recheck HPI: Patient presents today for office visit for follow up. DM: her hba1c is improving. She has lost weight by default. Does not like the taste of a lot of foot. She feels it is med related and is happy with weight loss. She is not checking sugars. RHEUM:having some pain still. Dr. Myers is following her. Has changed meds. Feels she does not feel well on meds. She thinks that is affecting her intake. CARDIO:no chest pain or shortness of breath that is new Some swelling at times. Has had in the past. Has varicose veins and has been on her feet more. GASTROENTEROLOGY: she cancelled her last appt with her elementary reading specialist. She may be switching gi physicians. PSYCH:still seeing psychiatry. Stable. STEPAN: again does not treat. Component Latest Ref Rng AND Units 07/07/2018 WBC 3.70 - 11.00 k/uL 6.74 RBC 3.90 - 5.20 m/uL 4.31 Hemoglobin 11.5 - 15.5 g/dL 12.5 Hematocrit 36.0 - 46.0 % 39.1 MCV 80.0 - 100.0 fL 90.7 MCH 26.0 - 34.0 pG 29.0 MCHC 30.5 - 36.0 g/dL 32.0 RDW-CV 11.5 - 15.0 % 15.9 (H) Platelet Count 150 - 400 k/uL 134 (L) MPV 9.0 - 12.7 fL 10.6 Neut% % 69.8 Abs Neut (ANC) 1.45 - 7.50 k/uL 4.70 Lymph% % 23.0 Abs Lymph 1.00 - 4.00 k/uL 1.55 Walsh% % 4.7 Abs Walsh <0.87 k/uL 0.32 Eosin% % 2.2 Abs Eosin <0.46 k/uL 0.15 Baso% % 0.3 Abs Baso <0.11 k/uL <0.03 Nucleated Reds 0 /100 WBC 0.0 Absolute nRBC <0.01 k/uL <0.01 Diff Type Auto Diff Hemoglobin A1C 4.3 - 5.6 % 6.9 (H) Estimated Average Glucose mg/dL 151 MEDICATIONS: Current Outpatient Prescriptions: FARXIGA 10 mg tab TAKE ONE TABLET BY MOUTH DAILY Ferrous Gluconate 324 mg (36 mg iron) tab Take 1 tablet by mouth twice daily with meals. Hydrochlorothiazide 12.5 mg capsule Take 1 capsule by mouth once daily. pantoprazole DR (PROTONIX) 40 mg tablet Take 1 tablet by mouth once daily. metoprolol succinate ER (TOPROL XL) 50 mg 24 hr tablet Take 1 tablet by mouth once daily. hydroxychloroquine (PLAQUENIL) 200 mg tablet Take by mouth twice daily. nitroglycerin sublingual (NITROQUICK) 0.4 mg SL tablet Dissolve 1 tablet under the tongue as needed. FOR CHEST PAIN. IF NO RELIEF CALL 911 metFORMIN (GLUCOPHAGE) 500 mg tablet TAKE TWO TABLETS BY MOUTH TWICE DAILY WITH MEALS glimepiride (AMARYL) 4 mg tablet TAKE ONE TABLET BY MOUTH DAILY WITH BREAKFAST lithium carbonate ER 450 mg CR tablet Take 2 tablets by mouth twice daily. (Patient taking differently: Take 900 mg by mouth three times daily. ) aspirin, enteric coated (ASPIR-LOW) 81 mg EC tablet Take 1 tablet by mouth once daily. sertraline (ZOLOFT) 100 mg tablet Take 1 tablet by mouth twice daily. No current facility-administered medications for this visit. ALLERGIES: ALLERGIES No Known Allergies PAST MEDICAL HISTORY Diagnosis Date - Anemia - Bipolar affect, depressed (HCC) - Diabetes mellitus - Elevated liver enzymes - Esophageal reflux - Fatty liver - GERD (gastroesophageal reflux disease) - Hypertension - Leukocytosis, unspecified - Obstructive sleep apnea (adult) (pediatric) - PAF (paroxysmal atrial fibrillation) (HCC) - Personal history of colonic polyps - Urge incontinence 02/01/2017 PAST SURGICAL HISTORY Procedure Laterality Date - APPENDECTOMY 1976 - COLONOSCOP W/ OR W/O BRSH SPEC 02/13/2017 Colonoscopy mac - COLONOSCOPY 04/17/2011 X6. TA in 2008 - EGD W/O OR W/BRUSH/WASH 06/09/14 EGD - EGD W/O OR W/BRUSH/WASH 02/13/2017 EGD mac - FOOT RIGHT OP SURGERY 1992 rebuilt bottom of right foot - HEART CATHETERIZATION - LIGATE FALLOPIAN TUBE 1982 - REMOVAL OF GALLBLADDER 1977 - SCREENING COLONOSCOPY, NOT HIGH RISK PT 04/17/2011 next 04/17/16, Dr. Dimitris Staton Brule - TOTAL ABDOM HYSTERECTOMY Hysterectomy, LEONILA - TOTAL HIP REPLACEMENT bilateral 2007 right hip, 2010 lef t hip FAMILY HISTORY Problem Relation Age of Onset - Diabetes Mother - Hypertension Mother - Cancer Father lung cancer - Diabetes Father - Heart Father CA x 2 - Hypertension Father - Diabetes Maternal Grandmother - Diabetes Maternal Grandfather - Diabetes Paternal Grandmother - Hypertension Paternal Grandmother - Diabetes Paternal Grandfather - Heart Paternal Grandfather CA Social History Marital status: Spouse name: Years of education: Number of children: 3 Social History Main Topics Smoking status: Former Smoker Packs/day: 1.00 Years: 9.00 Quit date: 01/08/1990 Smokeless tobacco: Former User Alcohol use: Yes Comment: extremely rare Drug use: No Sexual activity: No Other Topics Concern Service No Blood Transfusions Yes Seat Belt Yes Self-Exams No Reviewed current medications, allergies, past medical history, surgical history, family history and social history today. REVIEW OF SYSTEMS GI: Negative for blood in stools or black stools, change in bowel habit : Negative All other reviewed and negative other than HPI. HEALTH MAINTENANCE: Reviewed health maintenance issues today and recommended the following in detail. DILATED RETINAL EXAM -recommended. INFLUENZA(1) due on 07/26/2018 VITALS: BP 124/78 (BP Site: Right Arm, BP Position: Sitting, BP Cuff Size: Large Adult) Pulse 62 Resp 18 Wt 115.3 kg (254 lb 3.2 oz) BMI 43.29 kg/m? Last 4 Encounter Wt Readings: Date: Wt: 07/08/2018 115.3 kg (254 lb 3.2 oz) 04/03/2018 118.8 kg (262 lb) 12/27/2017 118.1 kg (260 lb 6.4 oz) 12/05/2017 118.4 kg (261 lb) PHYSICAL EXAMINATION: General appearance: Well appearing, alert, in no acute distress, well-hydrated, well nourished. Skin: Skin color, texture, turgor normal, no suspicious rashes or lesions Lungs: Lungs clear to auscultation. No wheezing, rhonchi, rales Heart: RRR without murmur, gallop, or rubs. No ectopy Abdomen: Normal abdominal exam, Abdomen soft, non-tender. Bowel sounds normal. No masses, organomegaly Extremities: No deformities, edema, skin discoloration, clubbing or cyanosis. Good capillary refill. PSYCH:Affect normal. Normal speech. Normal eye contact ASSESSMENT/PLAN: 1. Anemia, unspecified type - ICD9: 285.9, ICD10: D64.9 (primary diagnosis) - monitor labs. Follow with gi. 2. Obesity, Class III, BMI 40-49.9 (morbid obesity) ([facility]) - ICD9: 278.01, ICD10: E66.01 - continue weight loas 3. Positive MATY (antinuclear antibody) - ICD9: 795.79, ICD10: R76.8 - continue to see psych. 4. Gastroesophageal reflux disease, esophagitis presence not specified - ICD9: 530.81, ICD10: K21.9 - Continue current medications. Notify us if any difficulties are noted. 5. Obstructive sleep apnea (adult) (pediatric) - ICD9: 327.23, ICD10: G47.33 - consider sleep med if worsens. 6. Iron deficiency anemia, unspecified iron deficiency anemia type - ICD9: 280.9, ICD10: D50.9 - recheck next ov - CBC + DIFF - IRON + TIBC 7. Type 2 diabetes mellitus without complication, without long-term current use of insulin ([facility]) - ICD9: 250.00, ICD10: E11.9 improved control - Continue current medications - HGB A1C - COMP METABOLIC PANEL 8. Bipolar affective disorder, remission status unspecified ([facility]) - ICD9: 296.80, ICD10: F31.9 - continue to see psych. 9. Essential hypertension - ICD9: 401.9, ICD10: I10 - good control - Continue current medication(s) - Goal of BP <140/90 10. Paroxysmal atrial fibrillation (HCC) - ICD9: 427.31, ICD10: I48.0 - per cardio Yandel Bush MD RTO in three monthss and prn. Referring Provider: YANDEL BUSH [[id number]] Allergies As of Date: 07/08/2018 (No Known Allergies) Date Reviewed: 07/08/2018 Reviewed by: Karen Appiah - Fully Assessed Reason for Visit: Recheck [92] Primary Visit Diagnosis:Anemia, unspecified type [D64.9] Other Visit Diagnoses:Obesity, Class III, BMI 40-49.9 (morbid obesity) ([facility]) [E66.01] Positive MATY (antinuclear antibody) [R76.8] Gastroesophageal reflux disease, esophagitis presence not specified [K21.9] Obstructive sleep apnea (adult) (pediatric) [G47.33] Iron deficiency anemia, unspecified iron deficiency anemia type [D50.9] Type 2 diabetes mellitus without complication, without long-term current use of insulin ([facility]) [E11.9] Bipolar affective disorder, remission status unspecified ([facility]) [F31.9] Essential hypertension [I10] Paroxysmal atrial fibrillation (HCC) [I48.0] Order(s):HGB A1C [IDEQR4J] Order #: [id number] FUTURE CBC + DIFF [SQCBCDIF] Order #: [id number] FUTURE IRON + TIBC [SQIRON] Order #: [id number] FUTURE COMP METABOLIC PANEL [SQCMP] Order #: [id number] FUTURE Prescriptions as of 07/08/2018 Sig: FARXIGA 10 MG TABLET TAKE ONE TABLET BY MOUTH DAILY FERROUS GLUCONATE 324 MG (36 * Take 1 tablet by mouth twice * HYDROCHLOROTHIAZIDE 12.5 MG C* Take 1 capsule by mouth once * PANTOPRAZOLE 40 MG TABLET,DEL* Take 1 tablet by mouth once d* METOPROLOL SUCCINATE ER 50 MG* Take 1 tablet by mouth once d* HYDROXYCHLOROQUINE 200 MG TAB* Take by mouth twice daily. NITROGLYCERIN 0.4 MG SUBLINGU* Dissolve 1 tablet under the t* METFORMIN 500 MG TABLET TAKE TWO TABLETS BY MOUTH TWI* GLIMEPIRIDE 4 MG TABLET TAKE ONE TABLET BY MOUTH LISA* LITHIUM CARBONATE ER 450 MG T* Take 2 tablets by mouth twice* Patient taking differently: Take 900 mg by mouth three ti* ASPIRIN 81 MG TABLET,DELAYED * Take 1 tablet by mouth once d* SERTRALINE 100 MG TABLET Take 1 tablet by mouth twice * Problem List As Of Date 07/08/2018 Noted Resolved Type 2 diabetes mellitus without complication (*INVALID FOR* Hypertension [I10] INVALID FOR* Bipolar affective disorder [F31.9] INVALID FOR* More... Morbid obesity [E66.01] INVALID FOR* Fatty liver [K76.0] INVALID FOR* Paroxysmal atrial fibrillation [I48.0] INVALID FOR* History of colonic polyps [Z86.010] INVALID FOR* Obstructive sleep apnea (adult) (pediatric) [G4*INVALID FOR* More... GERD (gastroesophageal reflux disease) [K21.9] INVALID FOR* More... Urge incontinence [N39.41] INVALID FOR* Positive MATY (antinuclear antibody) [R76.8] INVALID FOR* More... p [M32.9] INVALID FOR*04/03/2018 More... Iron deficiency anemia [D50.9] INVALID FOR* Anemia [D64.9] INVALID FOR* Obesity, Class III, BMI >= 40 [E66.01] INVALID FOR* Disposition: Return in about 3 months (around 10/08/2018). Follow-up and Disposition History Recorded Encounter Status:Closed by YANDEL BUSH MD on 07/08/18 CBC AND DIFFERENTIAL Collected: 07/07/2018 Status: F Source: [place] 3:59 PM [facility] RE[facility] TYPE CODE TESTS RESULT OUT OF REFERENCE UNITS RANGE LAB WBC 3.70-11.00 k/uL WBC 6.74 LAB RBC 3.90-5.20 m/uL RBC 4.31 LAB HGB 11.5-15.5 g/dL Hemoglobin 12.5 LAB HCT 36.0-46.0 % Hematocrit 39.1 LAB MCV 80.0-100.0 fL MCV 90.7 LAB MCH 26.0-34.0 pG MCH 29.0 LAB MCHC 30.5-36.0 g/dL MCHC 32.0 LAB RDWCV 11.5-15.0 % RDW-CV High 15.9 LAB PLTCT 150-400 k/uL Low Platelet Count 134 Result Comment: Result checked and verified No clot detected. LAB MPV 9.0-12.7 fL MPV 10.6 LAB ANEUT % Neut% 69.8 LAB AANEUT 1.45-7.50 k/uL Abs Neut 4.70 LAB ALYMP % Lymph% 23.0 LAB AALYMP 1.00-4.00 k/uL Abs Lymph 1.55 LAB AMONO % Walsh% 4.7 LAB AAMONO <0.87 k/uL Abs Walsh 0.32 LAB AEOS % Eosin% 2.2 LAB AAEOS <0.46 k/uL Abs Eosin 0.15 LAB ABASO % Baso% 0.3 LAB AABASO <0.11 k/uL Abs Baso <0.03 LAB AUNRBC 0 /100 WBC NRBCs 0.0 LAB ABNRBC <0.01 k/uL Absolute nRBC <0.01 LAB DTYP DTYPE Auto Diff Performed By: #### CBCDIF, HBA1C #### [facility] [address] [place], [place] [address] HEMOGLOBIN A1C Collected: 07/07/2018 Status: F Source: [place] 3:59 PM [facility] REPOSITORY TYPE CODE TESTS RESULT OUT OF REFERENCE UNITS RANGE LAB HGBA1C 4.3-5.6 % High Hemoglobin A1c 6.9 LAB HBA0 mg/dL Est. Average Glucose 151 Result Comment: eAG: (Estimated average glucose) is a calculated value from HgbA1c and is security representative of the average blood glucose level in the last 2-3 month period. Performed By: #### CBCDIF, HBA1C #### [facility] [address] [place], [place] [address] BMP WITH EGFR Collected: 06/05/2018 Status: F Source: [place] 4:10 PM [facility] REPOSITORY TYPE CODE TESTS RESULT OUT OF RANGE REFERENCE UNITS LAB BMP with eGFR(LOINC) BMP with eGFR Result Comment: BASIC METABOLIC PANEL LAB SODIUM(LOINC) 136 - 145 mmol/l SODIUM 138 LAB POTASSIUM(LOINC) 3.5 - 5.1 mmol/L POTASSIUM 4.2 LAB CHLORIDE(LOINC) 98 - 107 mmol/L CHLORIDE 102 LAB CO2(LOINC) 21.0 - mmol/L 31.0 CO2 27.3 LAB GLUCOSE(LOINC) 74 - 106 mg/dl GLUCOSE High 185 LAB BUN(LOINC) 6 - 20 mg/dl BUN High 21 LAB CREATININE(LOINC) 0.6 - 1.2 mg/dl CREATININE 0.8 LAB CALCIUM(LOINC) 8.6 - mg/dl 10.2 CALCIUM High 10.3 LAB ANION GAP(LOINC) 10 - 20 mmol/L ANION GAP 13 LAB AGE(LOINC) years AGE 57 LAB eGFR(LOINC) 60 - 999 ML/MINUTE eGFR >60 LAB eGFR(AA)(LOINC) 60 - 999 ML/MINUTE eGFR(AA) >60 Result Comment: ACCORDING TO THE NATIONAL KIDNEY DISEASE EDUCATION PROGRAM(NKDE), A NORMAL eGFR IS A VALUE GREATER THAN OR EQUAL TO 60 ML/MIN/1.73 SQ METERS. CHRONIC KIDNEY DISEASE: <60mL/MIN/1.73 SQ METERS KIDNEY FAILURE: <15mL/MIN/1.73 SQ METERS THIS TEST SHOULD ONLY BE USED FOR PATIENTS 18 YEARS OF AGE AND OLDER. Performed By: #### [id number] #### [place] [address] TSH Collected: 06/05/2018 Status: F Source: [facility] 4:10 PM [facility] REPOSITORY TYPE CODE TESTS RESULT OUT OF RANGE REFERENCE UNITS LAB TSH(LOINC) 0.34 - 5.60 uIU/ml TSH 0.65 Performed By: #### [id number] #### [place] [address] LITHIUM Collected: 06/05/2018 Status: F Source: [facility] 4:10 [facility] REPOSITORY TYPE CODE TESTS RESULT OUT OF REFERENCE UNITS RANGE LAB LITHIUM(CARA 0.6 - 1.2 mmol/L NC) Low LITHIUM 0.5 Performed By: #### [id number] #### [place] [address] DOWNTIME REPORT Observed: 05/15/2018 Status: F Source: [place] 12:26 PM [facility] REPOSITORY [facility] Medical Records Department [address] [place] [address] Downtime Report MR#: [id number] Acct: [id number] Name: ELLI GUERRERO Rep #: [id number] : 1960 57 From: Mauri Staton PCP: Yandel Bush MD Status: REG CLI This patient was seen during an EMR downtime April 28, 2018 - May 05, 2018. This patient may have a combination of paper and electronic documentation or all paper documentation. All documentation is viewable within the e-chart portion of [facility] for each patient visit. CBC W/DIFF, AUTOMATED Collected: 05/02/2018 Status: F Source: [place] 2:55 PM [facility] REPOSITORY TYPE CODE TESTS RESULT OUT OF RANGE REFERENCE UNITS LAB L100.1000 4.4-11.0 K/mm3 Normal WBC 5.0 LAB L100.1200 4.2-5.4 M/mm3 Low RBC 3.97 LAB L100.1300 12.0-15.0 g/dl Low HGB 10.6 LAB L100.1400 37-47 % Low HCT 34.5 LAB L100.1500 81-99 fL Normal MCV 86.9 LAB L100.1600 27.0-32.0 pg Low MCH 26.7 LAB L100.1700 32-36 g/gl Low MCHC 30.7 LAB L100.1810 11.6-14.6 % High RDW CV 16.9 LAB L100.1820 35.1-43.9 fl High RDW SD 52.4 LAB L100.1900 150-450 K/mm3 Low PLT 128 LAB L100.2000 6.2-12.0 fl Normal MPV 10.2 LAB L100.2100 47-70 % Normal NEUT% 63.8 LAB L100.2200 19-41 % Normal LY% 26.4 LAB L100.2300 0-10 % Normal MONO% 6.8 LAB L100.2400 0-5 % Normal EO% 2.2 LAB L100.2500 0-1 % Normal BASO% 0.4 LAB L100.2550 0.0-0.9 % Normal IM GRAN % 0.400 Result Comment: IG% - Immature Granulocytes (promyelocytes, myelocytes and metamyelocytes) > 1% indicates that a LEFT SHIFT is Present. LAB L100.2620 2.0-7.7 X10 3/uL Normal Absolute Neut 3.2 LAB L100.2720 0.83-4.51 X10 3/ul Normal Absolute Lymph 1.33 Performed By: #### L100.0100 #### [facility] [address] [place], [place], [address] COMPREHENSIVE METABOLIC Collected: 05/02/2018 Status: F Source: [place] 2:55 PM [facility] REPOSITORY Order Comment: RESULT(S) PREVIOUSLY REPORTED ON MANUAL REQUISITION DURING DOWNTIME. TYPE CODE TESTS RESULT OUT OF RANGE REFERENCE UNITS LAB L501.0100 74-106 mg/dL High GLU 184 Result Comment: Fasting Glucose result greater than or equal to 126 mg/dL suggests DIABETES MELLITUS per A.D.A. criteria. Please note revised GLUCOSE reference range effective 2017. LAB L501.1000 7-18 mg/dL Normal BUN 13 LAB L501.1100 0.55-1.02 mg/dL Normal CREAT,SERUM 0.66 Result Comment: The validity of the calculated GFR AND GFRAA in patients over 70 years has not been determined. Clinical correlation is essential. LAB L501.1110 >60 mL/min Normal EST GFR 98 LAB L501.1115 >60 mL/min Normal EST GFR - AA 119 LAB L501.1300 10-20 RATIO Normal BUN/CRE 19.7 LAB L501.1500 6.4-8.2 g/dL Normal T PROT 8.2 LAB L501.1800 3.2-5.0 g/dL Normal ALB 3.9 LAB L501.1950 2.2-4.2 g/dL High GLOB 4.3 LAB L501.2000 0.9-2.4 RATIO Normal A/G 0.9 LAB L501.2200 8.5-10.1 mg/dL Normal CA 9.4 LAB L501.4100 15-37 U/L Normal AST 35 LAB L501.4305 45-117 U/L Normal ALK P 108 LAB L501.4405 13-56 U/L Normal ALT 30 LAB L501.4600 0.20-1.00 mg/dL Normal T BILI 0.40 LAB L501.5300 136-145 mmol/L Normal NA 142 LAB L501.5600 3.5-5.1 mmol/L Normal K 4.0 LAB L501.5900 98-107 mmol/L Normal CL 106 LAB L501.6100 21.0-32.0 mmol/L Normal CO2 28.0 LAB L501.6200 5-15 Normal GAP 8 Performed By: #### L500.4050 #### [facility] [address] [place], [address] PROGRESS Observed: 04/10/2018 Status: COMPLETED Source: [place] 9:09 AM [facility]IN[facility] OTHER [facility]AMPUS REPOSITORY O ID: [id number] Author: Holden Rosenbaum Service: (none) Author Type: Physician Type: Progress Notes Filed: 04/11/2018 9:06 AM Note Text: PERTINENT CARDIAC HISTORY Atrial fib - C-V 3, declines warfarin Chest pain - multiple normal stress tests and cath DM HTN HL Obesity STEPAN - declines CPAP Murmur ADHERENCE TO GUIDELINES MAYCOL-I or ARB for HF with prior LVEF<40 (NQF 0081) - N/A ASA or Plavix for ASHD (NQF 0067) - N/A Beta alejandro for ASHD with prior CA or prior LVEF<40 (NQF 0070) - N/A Beta alejandro for HF with prior LVEF<40 (NQF 0083) - N/A MAYCOL-I or ARB for ASHD with DM or prior LVEF<40 (NQF 0066) - N/A Statin therapy for ASHD or FHL or DM - N/A BMI documented and plan if >25 (NQF 0421) - lifestyle recommendation form Tobacco use screening and referral (NQF 0028) - lifestyle recommendation form Recommendation for whole food, plant based diet - lifestyle recommendation form CLINICAL IMPRESSION/PLAN: Elli Guerrero has stable chest pain pattern. Her blood pressure is well-controlled. Lipids are good. She has been strongly advised to increase her activity and get her weight under better control. I asked her to restart aspirin. She confirms that she is not willing to take warfarin or use CPAP. We discussed the risk of stroke and the complications of untreated sleep apnea. She's having intermittent atrial fibrillation, but she tolerates this well and this is not interested in adding an antiarrhythmic drug. I advised her to continue her beta alejandro let me know if she changes her mind or if the symptoms become more frequent. She is willing to undergo echocardiogram for follow-up of LV function. This will be carried out in the near future. Her chest pain pattern is stable. She's been encouraged to continue using nitroglycerin. Angiogram can be performed in the future if her symptoms worsen. I will see her in 6 months or as needed. Written and verbal health teaching given to patient, patient verbalizes understanding and agrees with treatment plan. DIAGNOSIS FOR VISIT: Chest pain PAF HISTORY OF PRESENT ILLNESS Elli Guerrero is a 57-year-old woman with multiple risk factors for cardiac disease who is seen at her request for follow-up. She was previously followed in our office until 2013. She is known to have chronic chest pain with multiple normal stress tests and angiography. She's had atrial fibrillation and has declined warfarin therapy. She has known sleep apnea and declines CPAP . These issues were all reviewed with her again today and she has not changed her mind. She reports that she has had a stable chest pain pattern. She occasionally takes nitroglycerin with random relief. Exercise tolerance has been limited, but stable. She's had no orthopnea. She denies edema, TIAs, amaurosis, claudication. She occasionally has episodes of palpitations which can last up to an hour. She describes an irregular and rapid heart rate. She is not willing to take warfarin and in fact is no longer taking aspirin. She states that she has been giving her aspirin to her because he had a heart attack. She's had no syncope. ALLERGIES: ALLERGIES No Known Allergies CURRENT OUTPATIENT MEDICATIONS: Ferrous Gluconate 324 mg (36 mg iron) tab Take 1 tablet by mouth twice daily with meals. Hydrochlorothiazide 12.5 mg capsule Take 1 capsule by mouth once daily. pantoprazole DR (PROTONIX) 40 mg tablet Take 1 tablet by mouth once daily. metoprolol succinate ER (TOPROL XL) 50 mg 24 hr tablet Take 1 tablet by mouth once daily. hydroxychloroquine (PLAQUENIL) 200 mg tablet Take by mouth twice daily. nitroglycerin sublingual (NITROQUICK) 0.4 mg SL tablet Dissolve 1 tablet under the tongue as needed. FOR CHEST PAIN. IF NO RELIEF CALL 911 metFORMIN (GLUCOPHAGE) 500 mg tablet TAKE TWO TABLETS BY MOUTH TWICE DAILY WITH MEALS glimepiride (AMARYL) 4 mg tablet TAKE ONE TABLET BY MOUTH DAILY WITH BREAKFAST lithium carbonate ER 450 mg CR tablet Take 2 tablets by mouth twice daily. aspirin, enteric coated (ASPIR-LOW) 81 mg EC tablet Take 1 tablet by mouth once daily. sertraline (ZOLOFT) 100 mg tablet Take 1 tablet by mouth twice daily. FARXIGA 10 mg tab TAKE ONE TABLET BY MOUTH DAILY PAST MEDICAL HISTORY Diagnosis Date - Anemia - Bipolar affect, depressed (HCC) - Diabetes mellitus - Elevated liver enzymes - Esophageal reflux - GERD (gastroesophageal reflux disease) - Hypertension - Leukocytosis, unspecified - Obstructive sleep apnea (adult) (pediatric) - Personal history of colonic polyps - Urge incontinence 02/01/2017 PAST SURGICAL HISTORY Procedure Laterality Date - APPENDECTOMY 1976 - COLONOSCOP W/ OR W/O [facility] SPEC 02/13/2017 Colonoscopy mac - COLONOSCOPY 04/17/2011 X6. TA in 2008 - EGD W/O OR W/BRUSH/WASH 06/09/14 EGD - EGD W/O OR W/BRUSH/WASH 02/13/2017 EGD mac - FOOT RIGHT OP SURGERY 1992 rebuilt bottom of right foot - HEART CATHETERIZATION - LIGATE FALLOPIAN TUBE 1982 - REMOVAL OF GALLBLADDER 1977 - SCREENING COLONOSCOPY, NOT HIGH RISK PT 04/17/2011 next 04/17/16, Dr. Dimitris Staton Brule - SCREENING COLONSCOPY NOT HIGH RISK - TOTAL ABDOM HYSTERECTOMY Hysterectomy, LEONILA - TOTAL HIP REPLACEMENT bilateral 2007 right hip, 2010 lef t hip FAMILY HISTORY Problem Relation Age of Onset - Diabetes Mother - Hypertension Mother - Cancer Father lung cancer - Diabetes Father - Heart Father CA x 2 - Hypertension Father - Diabetes Maternal Grandmother - Diabetes Maternal Grandfather - Diabetes Paternal Grandmother - Hypertension Paternal Grandmother - Diabetes Paternal Grandfather - Heart Paternal Grandfather CA Social History Marital status: Spouse name: Years of education: Number of children: 3 Social History Main Topics Smoking status: Former Smoker Packs/day: 1.00 Years: 9.00 Quit date: 01/08/1990 Smokeless tobacco: Former User Alcohol use: Yes Comment: extremely rare Drug use: No Sexual activity: No Other Topics Concern Service No Blood Transfusions Yes Seat Belt Yes Self-Exams No REVIEW OF SYSTEMS: General: No chills, fever, weight loss, night sweats. Respiratory: No productive cough. Cardiac: As noted above. GI: No melena. : No dysuria. Musculoskeletal: No myalgias. PHYSICAL EXAMINATION: S/he is alert and in no distress. VITAL SIGNS: 104/65, 75, 18. Weight is 263 SHEENT: Skin is warm and dry. No xanthelasmas appreciated. Pharynx is benign. There is no oral cyanosis. Neck: supple. No adenopathy or thyroid enlargement. Chest: Clear to percussion and auscultation. Trachea is midline. Air entry is equal. There is no chest wall tenderness. Cardiac: Regular rhythm. S1 and S2 are normal. PMI is nondisplaced. Her is a 1/6 systolic ejection murmur. No click is heard. Carotids are brisk without bruits. JVP is less than 10 cm. Abdomen: Soft and nontender. Obesity limits examination There are no pulsatile masses or bruits. No liver enlargement. Bowel sounds are active. Extremities: Trace edema. Pulses are intact and symmetrical. No clubbing or cyanosis. No femoral bruits. Neurologic: Grossly normal motor and sensory. S/he is alert and oriented x4. EKG demonstrates sinus rhythm. There are nonspecific repolarization changes. No change is seen since 06/14/16 Prior pharmacologic nuclear stress test shows no evidence of ischemia. Labs reviewed. Hemoglobin is 10 point 3. Renal function is normal. LDL was 62. Prior echocardiogram was very limited but showed normal LV systolic function. Electronically Signed: Holden Rosenbaum MD April 10, 2018 9:09 AM CC:Yandel Bush MD CNOV Observed: 04/10/2018 Status: COMPLETED Source: [facility] 8:30 AM CLINIC OTHER CAMPUS REPOSITORY Office Visit (AGCARDWST) ELLI GUERRERO ([id number]) 1960 F Date Time Provider Department 04/10/18 8:30 AM HOLDEN ROSENBAUM During your visit today, we recorded the following information about you: Pulse Blood pressure 75/minute 104/65 Holden Rosenbaum MD 04/11/2018 9:06 AM Signed PERTINENT CARDIAC HISTORY Atrial fib - C-V 3, declines warfarin Chest pain - multiple normal stress tests and cath DM HTN HL Obesity STEPAN - declines CPAP Murmur ADHERENCE TO GUIDELINES MAYCOL-I or ARB for HF with prior LVEF<40 (NQF 0081) - N/A ASA or Plavix for ASHD (NQF 0067) - N/A Beta alejandro for ASHD with prior CA or prior LVEF<40 (NQF 0070) - N/A Beta alejandro for HF with prior LVEF<40 (NQF 0083) - N/A MAYCOL-I or ARB for ASHD with DM or prior LVEF<40 (NQF 0066) - N/A Statin therapy for ASHD or FHL or DM - N/A BMI documented and plan if >25 (NQF 0421) - lifestyle recommendation form Tobacco use screening and referral (NQF 0028) - lifestyle recommendation form Recommendation for whole food, plant based diet - lifestyle recommendation form CLINICAL IMPRESSION/PLAN: Elli Guerrero has stable chest pain pattern. Her blood pressure is well-controlled. Lipids are good. She has been strongly advised to increase her activity and get her weight under better control. I asked her to restart aspirin. She confirms that she is not willing to take warfarin or use CPAP. We discussed the risk of stroke and the complications of untreated sleep apnea. She's having intermittent atrial fibrillation, but she tolerates this well and this is not interested in adding an antiarrhythmic drug. I advised her to continue her beta alejandro let me know if she changes her mind or if the symptoms become more frequent. She is willing to undergo echocardiogram for follow-up of LV function. This will be carried out in the near future. Her chest pain pattern is stable. She's been encouraged to continue using nitroglycerin. Angiogram can be performed in the future if her symptoms worsen. I will see her in 6 months or as needed. Written and verbal health teaching given to patient, patient verbalizes understanding and agrees with treatment plan. DIAGNOSIS FOR VISIT: Chest pain PAF HISTORY OF PRESENT ILLNESS Elli Guerrero is a 57-year-old woman with multiple risk factors for cardiac disease who is seen at her request for follow-up. She was previously followed in our office until 2013. She is known to have chronic chest pain with multiple normal stress tests and angiography. She's had atrial fibrillation and has declined warfarin therapy. She has known sleep apnea and declines CPAP . These issues were all reviewed with her again today and she has not changed her mind. She reports that she has had a stable chest pain pattern. She occasionally takes nitroglycerin with random relief. Exercise tolerance has been limited, but stable. She's had no orthopnea. She denies edema, TIAs, amaurosis, claudication. She occasionally has episodes of palpitations which can last up to an hour. She describes an irregular and rapid heart rate. She is not willing to take warfarin and in fact is no longer taking aspirin. She states that she has been giving her aspirin to her because he had a heart attack. She's had no syncope. ALLERGIES: ALLERGIES No Known Allergies CURRENT OUTPATIENT MEDICATIONS: Ferrous Gluconate 324 mg (36 mg iron) tab Take 1 tablet by mouth twice daily with meals. Hydrochlorothiazide 12.5 mg capsule Take 1 capsule by mouth once daily. pantoprazole DR (PROTONIX) 40 mg tablet Take 1 tablet by mouth once daily. metoprolol succinate ER (TOPROL XL) 50 mg 24 hr tablet Take 1 tablet by mouth once daily. hydroxychloroquine (PLAQUENIL) 200 mg tablet Take by mouth twice daily. nitroglycerin sublingual (NITROQUICK) 0.4 mg SL tablet Dissolve 1 tablet under the tongue as needed. FOR CHEST PAIN. IF NO RELIEF CALL 911 metFORMIN (GLUCOPHAGE) 500 mg tablet TAKE TWO TABLETS BY MOUTH TWICE DAILY WITH MEALS glimepiride (AMARYL) 4 mg tablet TAKE ONE TABLET BY MOUTH DAILY WITH BREAKFAST lithium carbonate ER 450 mg CR tablet Take 2 tablets by mouth twice daily. aspirin, enteric coated (ASPIR-LOW) 81 mg EC tablet Take 1 tablet by mouth once daily. sertraline (ZOLOFT) 100 mg tablet Take 1 tablet by mouth twice daily. FARXIGA 10 mg tab TAKE ONE TABLET BY MOUTH DAILY PAST MEDICAL HISTORY Diagnosis Date - Anemia - Bipolar affect, depressed (HCC) - Diabetes mellitus - Elevated liver enzymes - Esophageal reflux - GERD (gastroesophageal reflux disease) - Hypertension - Leukocytosis, unspecified - Obstructive sleep apnea (adult) (pediatric) - Personal history of colonic polyps - Urge incontinence 02/01/2017 PAST SURGICAL HISTORY Procedure Laterality Date - APPENDECTOMY 1976 - COLONOSCOP W/ OR W/O [facility] SPEC 02/13/2017 Colonoscopy mac - COLONOSCOPY 04/17/2011 X6. TA in 2008 - EGD W/O OR W/BRUSH/WASH 06/09/14 EGD - EGD W/O OR W/BRUSH/WASH 02/13/2017 EGD mac - FOOT RIGHT OP SURGERY 1992 rebuilt bottom of right foot - HEART CATHETERIZATION - LIGATE FALLOPIAN TUBE 1982 - REMOVAL OF GALLBLADDER 1977 - SCREENING COLONOSCOPY, NOT HIGH RISK PT 04/17/2011 next 04/17/16, Dr. Dimitris Staton Brule - SCREENING COLONSCOPY NOT HIGH RISK - TOTAL ABDOM HYSTERECTOMY Hysterectomy, LEONILA - TOTAL HIP REPLACEMENT bilateral 2007 right hip, 2010 lef t hip FAMILY HISTORY Problem Relation Age of Onset - Diabetes Mother - Hypertension Mother - Cancer Father lung cancer - Diabetes Father - Heart Father CA x 2 - Hypertension Father - Diabetes Maternal Grandmother - Diabetes Maternal Grandfather - Diabetes Paternal Grandmother - Hypertension Paternal Grandmother - Diabetes Paternal Grandfather - Heart Paternal Grandfather CA Social History Marital status: Spouse name: Years of education: Number of children: 3 Social History Main Topics Smoking status: Former Smoker Packs/day: 1.00 Years: 9.00 Quit date: 01/08/1990 Smokeless tobacco: Former User Alcohol use: Yes Comment: extremely rare Drug use: No Sexual activity: No Other Topics Concern Service No Blood Transfusions Yes Seat Belt Yes Self-Exams No REVIEW OF SYSTEMS: General: No chills, fever, weight loss, night sweats. Respiratory: No productive cough. Cardiac: As noted above. GI: No melena. : No dysuria. Musculoskeletal: No myalgias. PHYSICAL EXAMINATION: S/he is alert and in no distress. VITAL SIGNS: 104/65, 75, 18. Weight is 263 SHEENT: Skin is warm and dry. No xanthelasmas appreciated. Pharynx is benign. There is no oral cyanosis. Neck: supple. No adenopathy or thyroid enlargement. Chest: Clear to percussion and auscultation. Trachea is midline. Air entry is equal. There is no chest wall tenderness. Cardiac: Regular rhythm. S1 and S2 are normal. PMI is nondisplaced. Her is a 1/6 systolic ejection murmur. No click is heard. Carotids are brisk without bruits. JVP is less than 10 cm. Abdomen: Soft and nontender. Obesity limits examination There are no pulsatile masses or bruits. No liver enlargement. Bowel sounds are active. Extremities: Trace edema. Pulses are intact and symmetrical. No clubbing or cyanosis. No femoral bruits. Neurologic: Grossly normal motor and sensory. S/he is alert and oriented x4. EKG demonstrates sinus rhythm. There are nonspecific repolarization changes. No change is seen since 06/14/16 Prior pharmacologic nuclear stress test shows no evidence of ischemia. Labs reviewed. Hemoglobin is 10 point 3. Renal function is normal. LDL was 62. Prior echocardiogram was very limited but showed normal LV systolic function. Electronically Signed: Holden Rosenbaum MD April 10, 2018 9:09 AM CC:MD Holden Rai MD 04/10/2018 9:09 AM Signed LIFESTYLE CHANGE A healthy lifestyle is the most important component of your overall treatment plan. Please give serious thought to the following areas and commit to making rat exterminator changes. EAT A WHOLE FOOD, PLANT BASED DIET The nutrition your body gets is more important than the medicine you take. What matters most is the overall way you eat. We encourage you to minimize the use of animal products (which include dairy and all meats except fatty fish) and use whole, unprocessed plant foods to provide your protein, vitamins and other nutrients. We have a lot of information to share with you on this topic. This is not a diet. It is a way of life that you will keep with you. EXERCISE REGULARLY It is not important to spend hours in the gym, lifting weights and perspiring heavily. A total of 2-3 hours per week of aerobic (causing you to be moderately short of breath) exercise is sufficient to improve your health. Talk to us before you begin a new exercise program, if you have heart disease or experience shortness of breath or chest pain. REDUCE STRESS Chronic emotional and physical stress leads to disease. Ways of reducing stress include meditation, visualization, prayer, yoga and other forms of relaxation therapy. Consistency is the de santiago. Find a technique that works for you and do it every day. CULTIVATE RELATIONSHIPS Loneliness and isolation have a major negative impact on health. Seek out others who can love, care for and nurture you. Avoid hurtful relationships. MAINTAIN IDEAL BODY WEIGHT The best way to do this is to do all the things above. Our bodies naturally find the right weight if we keep moving and feed ourselves the right food. If your BMI is greater than 25, we strongly recommend a referral to a weight management program. Please speak to us or your family physician about available programs. AVOID NICOTINE IN ALL FORMS This includes all tobacco products, whether chewed, smoked, vaped, or rubbed on the skin. Smoking cessation programs, which can make use of tobacco substitutes, medications to suppress cravings and behavior management, are available. Please contact your family physician about programs in your area. Referring Provider: HOLDEN ROSENBAUM [[id number]] Allergies As of Date: 04/10/2018 (No Known Allergies) Date Reviewed: 04/10/2018 Reviewed by: Shy (Rn) Homar - Fully Assessed Reason for Visit: New Patient [172] Cmt: Referred by Dr. Elaezar Aguilar Reason For Visit History Recorded Primary Visit Diagnosis:PAF (paroxysmal atrial fibrillation) (HCC) [I48.0] Other Visit Diagnosis:Chest pain, unspecified type [R07.9] Prescriptions as of 04/10/2018 Sig: FERROUS GLUCONATE 324 MG (36 * Take 1 tablet by mouth twice * HYDROCHLOROTHIAZIDE 12.5 MG C* Take 1 capsule by mouth once * PANTOPRAZOLE 40 MG TABLET,DEL* Take 1 tablet by mouth once d* METOPROLOL SUCCINATE ER 50 MG* Take 1 tablet by mouth once d* HYDROXYCHLOROQUINE 200 MG TAB* Take by mouth twice daily. NITROGLYCERIN 0.4 MG SUBLINGU* Dissolve 1 tablet under the t* METFORMIN 500 MG TABLET TAKE TWO TABLETS BY MOUTH TWI* GLIMEPIRIDE 4 MG TABLET TAKE ONE TABLET BY MOUTH LISA* LITHIUM CARBONATE ER 450 MG T* Take 2 tablets by mouth twice* Patient taking differently: Take 900 mg by mouth three ti* ASPIRIN 81 MG TABLET,DELAYED * Take 1 tablet by mouth once d* SERTRALINE 100 MG TABLET Take 1 tablet by mouth twice * FARXIGA 10 MG TABLET TAKE ONE TABLET BY MOUTH DAILY Problem List As Of Date 04/10/2018 Noted Resolved Type 2 diabetes mellitus without complication (*INVALID FOR* Hypertension [I10] INVALID FOR* Bipolar affective disorder [F31.9] INVALID FOR* More... Morbid obesity [E66.01] INVALID FOR* Fatty liver [K76.0] INVALID FOR* Paroxysmal atrial fibrillation [I48.0] INVALID FOR* History of colonic polyps [Z86.010] INVALID FOR* Obstructive sleep apnea (adult) (pediatric) [G4*INVALID FOR* GERD (gastroesophageal reflux disease) [K21.9] INVALID FOR* Urge incontinence [N39.41] INVALID FOR* Positive MATY (antinuclear antibody) [R76.8] INVALID FOR* More... p [M32.9] INVALID FOR*04/03/2018 More... Iron deficiency anemia [D50.9] INVALID FOR* Other instructions from your clinician: LIFESTYLE CHANGE A healthy lifestyle is the most important component of your overall treatment plan. Please give serious thought to the following areas and commit to making rat exterminator changes. EAT A WHOLE FOOD, PLANT BASED DIET The nutrition your body gets is more important than the medicine you take. What matters most is the overall way you eat. We encourage you to minimize the use of animal products (which include dairy and all meats except fatty fish) and use whole, unprocessed plant foods to provide your protein, vitamins and other nutrients. We have a lot of information to share with you on this topic. This is not a diet. It is a way of life that you will keep with you. EXERCISE REGULARLY It is not important to spend hours in the gym, lifting weights and perspiring heavily. A total of 2-3 hours per week of aerobic (causing you to be moderately short of breath) exercise is sufficient to improve your health. Talk to us before you begin a new exercise program, if you have heart disease or experience shortness of breath or chest pain. REDUCE STRESS Chronic emotional and physical stress leads to disease. Ways of reducing stress include meditation, visualization, prayer, yoga and other forms of relaxation therapy. Consistency is the de santiago. Find a technique that works for you and do it every day. CULTIVATE RELATIONSHIPS Loneliness and isolation have a major negative impact on health. Seek out others who can love, care for and nurture you. Avoid hurtful relationships. MAINTAIN IDEAL BODY WEIGHT The best way to do this is to do all the things above. Our bodies naturally find the right weight if we keep moving and feed ourselves the right food. If your BMI is greater than 25, we strongly recommend a referral to a weight management program. Please speak to us or your family physician about available programs. AVOID NICOTINE IN ALL FORMS This includes all tobacco products, whether chewed, smoked, vaped, or rubbed on the skin. Smoking cessation programs, which can make use of tobacco substitutes, medications to suppress cravings and behavior management, are available. Please contact your family physician about programs in your area. Follow-up and Disposition History Recorded Encounter Status:Closed by HOLDEN ROSENBAUM MD on 04/11/18 FECAL OCCULT BLD Collected: 04/08/2018 Status: F Source: [facility] 10:00 AM [facility] REPOSITORY TYPE CODE TESTS RESULT OUT OF REFERENCE UNITS RANGE LAB IFO Negative Immuno Negative FOB Result Comment: This test was developed and its performance characteristics determined by [facility] ([facility]). It has not been cleared or approved by the FDA. [facility] is regulated under CLIA as qualified to perform high-complexity testing. This test is used for clinical purposes. It should not be regarded as investigational or for research. Performed By: #### IFOBT #### [facility] [address] [place], [place] [address] CBC AND DIFFERENTIAL Collected: 04/07/2018 Status: F Source: [facility] 3:45 PM [facility] REPOSITORY TYPE CODE TESTS RESULT OUT OF REFERENCE UNITS RANGE LAB WBC 3.70-11.00 k/uL WBC 5.36 LAB RBC 3.90-5.20 m/uL RBC 3.99 LAB HGB 11.5-15.5 g/dL Low Hemoglobin 10.3 LAB HCT 36.0-46.0 % Low Hematocrit 33.9 LAB MCV 80.0-100.0 fL MCV 85.0 LAB MCH 26.0-34.0 pG Low MCH 25.8 LAB MCHC 30.5-36.0 g/dL Low MCHC 30.4 LAB RDWCV 11.5-15.0 % RDW-CV High 15.4 LAB PLTCT 150-400 k/uL Low Platelet Count 144 LAB MPV 9.0-12.7 fL MPV 10.5 LAB ANEUT % Neut% 68.9 LAB AANEUT 1.45-7.50 k/uL Abs Neut 3.67 LAB ALYMP % Lymph% 21.8 LAB AALYMP 1.00-4.00 k/uL Abs Lymph 1.17 LAB AMONO % Walsh% 6.7 LAB AAMONO <0.87 k/uL Abs Walsh 0.36 LAB AEOS % Eosin% 2.4 LAB AAEOS <0.46 k/uL Abs Eosin 0.13 LAB ABASO % Baso% 0.2 LAB AABASO <0.11 k/uL Abs Baso <0.03 LAB AUNRBC 0 /100 WBC NRBCs 0.0 LAB ABNRBC <0.01 k/uL Absolute nRBC <0.01 LAB DTYP DTYPE Auto Diff Performed By: #### CBCDIF, IRON #### [facility] [address] [place], [place] [address] IRON AND TIBC Collected: 04/07/2018 Status: F Source: [facility] 3:45 PM [facility] REPOSITORY TYPE CODE TESTS RESULT OUT OF REFERENCE UNITS RANGE LAB IRN 41-186 ug/dL Iron 57 LAB TIBC 232-386 ug/dL TIBC High 456 LAB SAT 15-57 % Low Transferrin Saturatn 13 Performed By: #### CBCDIF, IRON #### [facility] [address] [place] [id number] CBC AND DIFFERENTIAL Collected: 04/03/2018 Status: F Source: [facility] 10:23 AM [facility] REPOSITORY TYPE CODE TESTS RESULT OUT OF REFERENCE UNITS RANGE LAB WBC 3.70-11.00 k/uL WBC 5.01 LAB RBC 3.90-5.20 m/uL RBC 4.10 LAB HGB 11.5-15.5 g/dL Low Hemoglobin 10.6 LAB HCT 36.0-46.0 % Low Hematocrit 34.5 LAB MCV 80.0-100.0 fL MCV 84.1 LAB MCH 26.0-34.0 pG Low MCH 25.9 LAB MCHC 30.5-36.0 g/dL MCHC 30.7 LAB RDWCV 11.5-15.0 % RDW-CV High 15.1 LAB PLTCT 150-400 k/uL Low Platelet Count 131 LAB MPV 9.0-12.7 fL MPV 10.2 LAB ANEUT % Neut% 67.0 LAB AANEUT 1.45-7.50 k/uL Abs Neut 3.34 LAB ALYMP % Lymph% 25.0 LAB AALYMP 1.00-4.00 k/uL Abs Lymph 1.25 LAB AMONO % Walsh% 5.0 LAB AAMONO <0.87 k/uL Abs Walsh 0.25 LAB AEOS % Eosin% 2.6 LAB AAEOS <0.46 k/uL Abs Eosin 0.13 LAB ABASO % Baso% 0.4 LAB AABASO <0.11 k/uL Abs Baso <0.03 LAB AUNRBC 0 /100 WBC NRBCs 0.0 LAB ABNRBC <0.01 k/uL Absolute nRBC <0.01 LAB DTYP DTYPE Auto Diff Performed By: #### CBCDIF, RETIC, HBA1C, CMP, FERR, B12, SERFOL, IRON #### [facility] [address] [id number] RETICULOCYTE Collected: 04/03/2018 Status: F Source: [facility] 10:23 AM [facility] REPOSITORY TYPE CODE TESTS RESULT OUT OF REFERENCE UNITS RANGE LAB RETC 0.4-2.0 % Retic% 1.8 LAB ABRET 0.0180-0.1000 M/uL Abs Retic 0.073 Performed By: #### CBCDIF, RETIC, HBA1C, CMP, FERR, B12, SERFOL, IRON #### [facility] [address] [place] [address] HEMOGLOBIN A1C Collected: 04/03/2018 Status: F Source: [facility] 10:23 AM [facility] REPOSITORY TYPE CODE TESTS RESULT OUT OF REFERENCE UNITS RANGE LAB HGBA1C 4.3-5.6 % High Hemoglobin A1c 7.1 LAB HBA0 mg/dL Est. Average Glucose 157 Result Comment: eAG: (Estimated average glucose) is a calculated value from HgbA1c and is security representative of the average blood glucose level in the last 2-3 month period. Performed By: #### CBCDIF, RETIC, HBA1C, CMP, FERR, B12, SERFOL, IRON #### [facility] [address] [place] [id number] COMP METABOLIC PANEL Collected: 04/03/2018 Status: F Source: [facility] 10:23 AM [facility] REPOSITORY TYPE CODE TESTS RESULT OUT OF REFERENCE UNITS RANGE LAB TP 6.3-8.0 g/dL Protein, Total 8.0 LAB ALB 3.9-4.9 g/dL Albumin 4.2 LAB CA 8.5-10.2 mg/dL Calcium, Total 9.6 LAB TBIL 0.2-1.3 mg/dL Bilirubin, Total 0.5 LAB ALKP 32-117 U/L Alkaline Phosphatase 98 LAB AST 13-35 U/L AST 34 LAB GLU 74-99 mg/dL Glucose High 167 Result Comment: The [place] [employer] (ADA) provides guidance for cutoff values for fasting glucose and random glucose. The ADA defines fasting as no caloric intake for at least 8 hours. Fas ting plasma glucose results between 100 to 125 mg/dL indicate increased risk for diabetes (prediabetes). Fasting plasma glucose results greater than or equal to 126 mg/dL meet the criteria for diagnosis of diabetes. In the absence of unequivocal hyperglycemia, results should be confirmed by repeat testing. In a patient with classic symptoms of hyperglycemia or hyperglycemic crisis, random plasma glucose results greater than or equal to 200 mg/dL meet the criteria for diagnosis of diabetes. Reference: Standards of Medical Care in Diabetes 2016, [place] [employer]. Diabetes Care. 2016.39(Suppl 1). LAB BUN 7-21 mg/dL BUN 10 LAB CRET 0.58-0.96 mg/dL Creatinine 0.58 LAB NA 136-144 mmol/L Sodium 139 LAB K 3.7-5.1 mmol/L Potassium 4.4 LAB CL 97-105 mmol/L Chloride 100 LAB CO2 22-30 mmol/L CO2 24 LAB AGAP 9-18 mmol/L Anion Gap 15 LAB ALT 7-38 U/L ALT 20 LAB GFRAA eGFR- Amer. >60 LAB GFRNAA . eGFR-All Other Races >60 Result Comment: eGFR (Estimated GFR) Units of measure: mL/min/1.73 meters squared eGFR is derived from the reexpressed MDRD Study equation using the following parameters: serum creatinine, age, gender and race. The creatinine assay has been calibrated to be traceable to IDMS. An eGFR <60 mL/min/1.73m2 for >3 months is consistent with chronic kidney disease. Refer to KDOQI guidelines for clinical interpretation. In patients with unstable renal function, e.g. those with acute kidney injury, the eGFR may not accurately reflect actual GFR. Performed By: #### CBCDIF, RETIC, HBA1C, CMP, FERR, B12, SERFOL, IRON #### [facility] [address] [place] [id number] FERRITIN Collected: 04/03/2018 Status: F Source: [place] 10:23 AM [facility] REPOSITORY TYPE CODE TESTS RESULT OUT OF REFERENCE UNITS RANGE LAB FERR 14.7-205.1 ng/mL Ferritin 22.1 Performed By: #### CBCDIF, RETIC, HBA1C, CMP, FERR, B12, SERFOL, IRON #### [place] [id number] VITAMIN B12 Collected: 04/03/2018 Status: F Source: [place] 10:23 AM [facility] REPOSITORY TYPE CODE TESTS RESULT OUT OF REFERENCE UNITS RANGE LAB B12 232-1245 pg/mL Vitamin B12 497 Performed By: #### CBCDIF, RETIC, HBA1C, CMP, FERR, B12, SERFOL, IRON #### [place] [id number] FOLATE, SERUM Collected: 04/03/2018 Status: F Source: [place] 10:23 AM [facility] REPOSITORY TYPE CODE TESTS RESULT OUT OF REFERENCE UNITS RANGE LAB SERFOL >4.7 ng/mL Folate, 12.7 Serum Performed By: #### CBCDIF, RETIC, HBA1C, CMP, FERR, B12, SERFOL, IRON #### [place] [id number] IRON AND TIBC Collected: 04/03/2018 Status: F Source: [place] 10:23 AM [facility] REPOSITORY TYPE CODE TESTS RESULT OUT OF REFERENCE UNITS RANGE LAB IRN 41-186 ug/dL Low Iron 38 LAB TIBC 232-386 ug/dL TIBC High 484 LAB SAT 15-57 % Low Transferrin Saturatn 8 Performed By: #### CBCDIF, RETIC, HBA1C, CMP, FERR, B12, SERFOL, IRON #### [place] [address] PROGRESS Observed: 04/03/2018 Status: COMPLETED Source: [place] 9:11 AM [facility] REPOSITORY HNO ID: [id number] Author: Yandel Bush Service: (none) Author Type: Physician Type: Progress Notes Filed: 04/03/2018 10:52 AM Note Text: Patient presents with: Establish Care HPI: Patient presents today for office visit for follow up. HTN: Patient is compliant with meds . Denies side effects: No. Chest pain: Chronic see below. Dyspnea: No. Edema: Has chronic edema. . Palpitations: Is chronic. . Syncope: No. Headache: chronic. Dizziness: has chronic dizziness. Has had some issues for years. Has issues going up and down stairs. Issues looking up. DM: Reports overall feeling well. Does not check sugars. No new polyuria. CARDIO: has not been in to see cardiology in some time. Still has occasional chest pain. Still has atrial fib issues. Has refused anticoagulation. STEPAN: not using machine. Her dog ate the machine. PSYCH: Currently tolerating medications well Sees psych. She does get labs regularly per them She cries frequently when not on meds but is well controlled. RHEUM:reminded to get her annual eye exam. Sees Dr. Myers. Stable. Wants off meds. Discussed we could stop ditropan. She does not feel it helps. Has seen urology. Had lost a lot of weight but it stabilized. Specialists:Dr. Myers- rheum Dr. Jean.- psych Dr. Benavides-GI Component Latest Ref Rng AND Units 12/27/2017 04/01/2018 WBC 3.70 - 11.00 k/uL 6.42 RBC 3.90 - 5.20 m/uL 3.90 Hemoglobin 11.5 - 15.5 g/dL 10.4 (L) Hematocrit 36.0 - 46.0 % 34.0 (L) MCV 80.0 - 100.0 fL 87.2 MCH 26.0 - 34.0 pG 26.7 MCHC 30.5 - 36.0 g/dL 30.6 RDW-CV 11.5 - 15.0 % 15.4 (H) Platelet Count 150 - 400 k/uL 132 (L) MPV 9.0 - 12.7 fL 10.9 Neut% % 72.0 Abs Neut (ANC) 1.45 - 7.50 k/uL 4.61 Lymph% % 20.1 Abs Lymph 1.00 - 4.00 k/uL 1.29 Walsh% % 4.7 Abs Walsh <0.87 k/uL 0.30 Eosin% % 3.0 Abs Eosin <0.46 k/uL 0.19 Baso% % 0.2 Abs Baso <0.11 k/uL <0.03 Nucleated Reds 0 /100 WBC 0.0 Absolute nRBC <0.01 k/uL <0.01 Diff Type Auto Diff Protein, Total 6.3 - 8.0 g/dL 8.5 (H) Albumin 3.9 - 4.9 g/dL 4.5 Calcium 8.5 - 10.2 mg/dL 9.9 Bilirubin, Total 0.2 - 1.3 mg/dL 0.4 Alkaline Phosphatase 32 - 117 U/L 106 AST 13 - 35 U/L 35 Glucose 74 - 99 mg/dL 155 (H) BUN 7 - 21 mg/dL 11 Creatinine 0.58 - 0.96 mg/dL 0.66 Sodium 136 - 144 mmol/L 139 Potassium 3.7 - 5.1 mmol/L 3.9 Chloride 97 - 105 mmol/L 100 CO2 22 - 30 mmol/L 22 Anion Gap 9 - 18 mmol/L 17 ALT 7 - 38 U/L 20 eGFR- >60 eGFR-All Other Races . >60 Cholesterol, Total <200 mg/dL 142 Triglyceride <150 mg/dL 96 HDL Cholesterol >39 mg/dL 61 LDL Cholesterol <100 mg/dL 62 Non HDL Cholesterol <130 mg/dL 81 Fasting Time hrs 14 VLDL Cholesterol <30 mg/dL 19 TC:HDL Ratio <5.10 2.33 LDL:HDL Ratio <2.54 1.02 Creatinine, Ur Random (UCRR) 20 - 300 mg/dL 94.5 Albumin, Urine Random 0.0 - 23.0 mg/L 14.1 Albumin/Creat Ratio 0 - 30 mg/g 15 Hemoglobin A1C 4.3 - 5.6 % 7.0 (H) Estimated Average Glucose mg/dL 154 MEDICATIONS: Current Outpatient Prescriptions: Hydrochlorothiazide 12.5 mg capsule TAKE ONE CAPSULE BY MOUTH DAILY hydroxychloroquine (PLAQUENIL) 200 mg tablet Take by mouth twice daily. nitroglycerin sublingual (NITROQUICK) 0.4 mg SL tablet Dissolve 1 tablet under the tongue as needed. FOR CHEST PAIN. IF NO RELIEF CALL [address] (PROTONIX) 40 mg tablet TAKE ONE TABLET BY MOUTH DAILY ONE-HALF HOUR BEFORE BREAKFAST ON EMPTY stomach metFORMIN (GLUCOPHAGE) 500 mg tablet TAKE TWO TABLETS BY MOUTH TWICE DAILY WITH MEALS glimepiride (AMARYL) 4 mg tablet TAKE ONE TABLET BY MOUTH DAILY WITH BREAKFAST metoprolol succinate ER (TOPROL XL) 50 mg 24 hr tablet TAKE ONE TABLET BY MOUTH EVERY DAY oxybutynin ER (DITROPAN XL) 10 mg 24 hr tablet Take 10 mg by mouth once daily. lithium carbonate ER 450 mg CR tablet Take 2 tablets by mouth twice daily. (Patient taking differently: Take 900 mg by mouth three times daily. ) aspirin, enteric coated (ASPIR-LOW) 81 mg EC tablet Take 1 tablet by mouth once daily. sertraline (ZOLOFT) 100 mg tablet Take 1 tablet by mouth twice daily. FARXIGA 10 mg tab TAKE ONE TABLET BY MOUTH DAILY No current facility-administered medications for this visit. ALLERGIES: ALLERGIES No Known Allergies PAST MEDICAL HISTORY Diagnosis Date - Anemia - Bipolar affect, depressed (HCC) - Diabetes mellitus - Elevated liver enzymes - Esophageal reflux - GERD (gastroesophageal reflux disease) - Hypertension - Leukocytosis, unspecified - Obstructive sleep apnea (adult) (pediatric) - Personal history of colonic polyps - Urge incontinence 02/01/2017 PAST SURGICAL HISTORY Procedure Laterality Date - APPENDECTOMY 1976 - COLONOSCOP W/ OR W/O [facility] SPEC 02/13/2017 Colonoscopy mac - COLONOSCOPY 04/17/2011 X6. TA in 2008 - EGD W/O OR W/BRUSH/WASH 06/09/14 EGD - EGD W/O OR W/BRUSH/WASH 02/13/2017 EGD mac - FOOT RIGHT OP SURGERY 1992 rebuilt bottom of right foot - HEART CATHETERIZATION - LIGATE FALLOPIAN TUBE 1982 - REMOVAL OF GALLBLADDER 1977 - SCREENING COLONOSCOPY, NOT HIGH RISK PT 04/17/2011 next 04/17/16, Dr. Dimitris Staton Brule - SCREENING COLONSCOPY NOT HIGH RISK - TOTAL ABDOM HYSTERECTOMY Hysterectomy, LEONILA - TOTAL HIP REPLACEMENT bilateral 2007 right hip, 2010 lef t hip FAMILY HISTORY Problem Relation Age of Onset - Diabetes Mother - Hypertension Mother - Cancer Father lung cancer - Diabetes Father - Heart Father CA x 2 - Hypertension Father - Diabetes Maternal Grandmother - Diabetes Maternal Grandfather - Diabetes Paternal Grandmother - Hypertension Paternal Grandmother - Diabetes Paternal Grandfather - Heart Paternal Grandfather CA Social History Marital status: Spouse name: Years of education: Number of children: 3 Social History Main Topics Smoking status: Former Smoker Packs/day: 1.00 Years: 9.00 Quit date: 01/08/1990 Smokeless tobacco: Former User Alcohol use: Yes Comment: extremely rare Drug use: No Sexual activity: No Other Topics Concern Service No Blood Transfusions Yes Seat Belt Yes Self-Exams No Reviewed current medications, allergies, past medical history, surgical history, family history and social history today. REVIEW OF SYSTEMS All other reviewed and negative other than HPI. HEALTH MAINTENANCE: Reviewed health maintenance issues today and recommended the following in detail. DTAP,TDAP,TD(1 - Tdap) due on 1978 DILATED RETINAL EXAM due on 11/05/2017 VITALS: BP 124/64 Pulse 60 Temp 36.9 ?C (98.4 ?F) (Tympanic) Resp 16 Ht 163.2 cm (5' 4.25) Wt 118.8 kg (262 lb) BMI 44.62 kg/m? Last 4 Encounter Wt Readings: Date: Wt: 04/03/2018 118.8 kg (262 lb) 12/27/2017 118.1 kg (260 lb 6.4 oz) 12/05/2017 118.4 kg (261 lb) 10/03/2017 117 kg (258 lb) PHYSICAL EXAMINATION: General appearance: Well appearing, alert, in no acute distress, well-hydrated, well nourished. Skin: Skin color, texture, turgor normal, no suspicious rashes or lesions Head: Normocephalic, no masses, lesions, tenderness or abnormalities Neck: Supple, no adenopathy; thyroid symmetric, normal size, no bruits Lungs: Lungs clear to auscultation. No wheezing, rhonchi, rales Heart: RRR, soft murmur. Abdomen: Normal abdominal exam, Abdomen soft, non-tender. Bowel sounds normal. No masses, organomegaly Extremities: No deformities, edema, skin discoloration, clubbing or cyanosis. Good capillary refill. Musculoskeletal: No joint swelling, deformity, or tenderness ASSESSMENT/PLAN: 1. Positive MATY (antinuclear antibody) - ICD9: 795.79, ICD10: R76.8 (primary diagnosis) - reminded to see ophto since on placquenil. Continue meds. - CONSULT TO OPHTHALMOLOGY 2. Obstructive sleep apnea (adult) (pediatric) - ICD9: 327.23, ICD10: G47.33 - declines treatment. 3. Paroxysmal atrial fibrillation (HCC) - ICD9: 427.31, ICD10: I48.0 - continue meds. Has declined anticoag in the past. Reminded to see cardio. - call if any chest pain or shortness of breath. - METOPROLOL SUCCINATE ER 50 MG TABLET,EXTENDED RELEASE 24 HR - CONSULT TO CARDIOLOGY 4. Morbid obesity (HCC) - ICD9: 278.01, ICD10: E66.01 - work on diet. 5. Type 2 diabetes mellitus without complication, without long-term current use of insulin (HCC) - ICD9: 250.00, ICD10: E11.9 The patient is new to [place]. - Continue current medications - CONSULT TO OPHTHALMOLOGY - HGB A1C 6. Essential hypertension - ICD9: 401.9, ICD10: I10 - good control - Continue current medication(s) - Goal of BP <140/90 - HYDROCHLOROTHIAZIDE 12.5 MG CAPSULE 7. Bipolar affective disorder, remission status unspecified (HCC) - ICD9: 296.80, ICD10: F31.9 - continue to see psych 8. Gastroesophageal reflux disease, esophagitis presence not specified - ICD9: 530.81, ICD10: K21.9 - PANTOPRAZOLE 40 MG TABLET,DELAYED RELEASE 9. Anemia, unspecified type - ICD9: 285.9, ICD10: D64.9 - check labs. - FERRITIN BLD - FOLATE SERUM - RETIC COUNT - VITAMIN B12 BLOOD - IRON + TIBC - CBC + DIFF 10. Systemic lupus erythematosus, unspecified SLE type, unspecified organ involvement status (HCC) - ICD9: 710.0, ICD10: M32.9 - as above. 11. Urge incontinence - ICD9: 788.31, ICD10: N39.41 - can stop meds. Refuses return to urology 12. Fatty liver - ICD9: 571.8, ICD10: K76.0 - reinforced following with gi - COMP METABOLIC PANEL - CONSULT TO GASTROENTEROLOGY 13. Murmur - ICD9: 785.2, ICD10: R01.1 - check echo - ECHO Yandel Bush MD RTO in three months and prn. CNOV Observed: 04/03/2018 Status: COMPLETED Source: [place] 8:40 AM [facility] REPOSITORY Office Visit (FAMPWS) ELLI GUERRERO ([id number]) 1960 F Date Time Provider Department 04/03/18 8:40 AM YANDEL BUSH FAMPWS During your visit today, we recorded the following information about you: Temperature Pulse Respiration Blood pressure 98.4 degrees 60/minute 16/minute 124/64 Weight Height 118.8 kg 1.632 m Yandel Bush 04/03/2018 10:52 AM Signed Patient presents with: Establish Care HPI: Patient presents today for office visit for follow up. HTN: Patient is compliant with meds . Denies side effects: No. Chest pain: Chronic see below. Dyspnea: No. Edema: Has chronic edema. . Palpitations: Is chronic. . Syncope: No. Headache: chronic. Dizziness: has chronic dizziness. Has had some issues for years. Has issues going up and down stairs. Issues looking up. DM: Reports overall feeling well. Does not check sugars. No new polyuria. CARDIO: has not been in to see cardiology in some time. Still has occasional chest pain. Still has atrial fib issues. Has refused anticoagulation. STEPAN: not using machine. Her dog ate the machine. PSYCH: Currently tolerating medications well Sees psych. She does get labs regularly per them She cries frequently when not on meds but is well controlled. RHEUM:reminded to get her annual eye exam. Sees Dr. Myers. Stable. Wants off meds. Discussed we could stop ditropan. She does not feel it helps. Has seen urology. Had lost a lot of weight but it stabilized. Specialists:Dr. Myers- rheum Dr. Jean.- psych Dr. Benavides-GI Component Latest Ref Rng AND Units 12/27/2017 04/01/2018 WBC 3.70 - 11.00 k/uL 6.42 RBC 3.90 - 5.20 m/uL 3.90 Hemoglobin 11.5 - 15.5 g/dL 10.4 (L) Hematocrit 36.0 - 46.0 % 34.0 (L) MCV 80.0 - 100.0 fL 87.2 MCH 26.0 - 34.0 pG 26.7 MCHC 30.5 - 36.0 g/dL 30.6 RDW-CV 11.5 - 15.0 % 15.4 (H) Platelet Count 150 - 400 k/uL 132 (L) MPV 9.0 - 12.7 fL 10.9 Neut% % 72.0 Abs Neut (ANC) 1.45 - 7.50 k/uL 4.61 Lymph% % 20.1 Abs Lymph 1.00 - 4.00 k/uL 1.29 Walsh% % 4.7 Abs Walsh <0.87 k/uL 0.30 Eosin% % 3.0 Abs Eosin <0.46 k/uL 0.19 Baso% % 0.2 Abs Baso <0.11 k/uL <0.03 Nucleated Reds 0 /100 WBC 0.0 Absolute nRBC <0.01 k/uL <0.01 Diff Type Auto Diff Protein, Total 6.3 - 8.0 g/dL 8.5 (H) Albumin 3.9 - 4.9 g/dL 4.5 Calcium 8.5 - 10.2 mg/dL 9.9 Bilirubin, Total 0.2 - 1.3 mg/dL 0.4 Alkaline Phosphatase 32 - 117 U/L 106 AST 13 - 35 U/L 35 Glucose 74 - 99 mg/dL 155 (H) BUN 7 - 21 mg/dL 11 Creatinine 0.58 - 0.96 mg/dL 0.66 Sodium 136 - 144 mmol/L 139 Potassium 3.7 - 5.1 mmol/L 3.9 Chloride 97 - 105 mmol/L 100 CO2 22 - 30 mmol/L 22 Anion Gap 9 - 18 mmol/L 17 ALT 7 - 38 U/L 20 eGFR- >60 eGFR-All Other Races . >60 Cholesterol, Total <200 mg/dL 142 Triglyceride <150 mg/dL 96 HDL Cholesterol >39 mg/dL 61 LDL Cholesterol <100 mg/dL 62 Non HDL Cholesterol <130 mg/dL 81 Fasting Time hrs 14 VLDL Cholesterol <30 mg/dL 19 TC:HDL Ratio <5.10 2.33 LDL:HDL Ratio <2.54 1.02 Creatinine, Ur Random (UCRR) 20 - 300 mg/dL 94.5 Albumin, Urine Random 0.0 - 23.0 mg/L 14.1 Albumin/Creat Ratio 0 - 30 mg/g 15 Hemoglobin A1C 4.3 - 5.6 % 7.0 (H) Estimated Average Glucose mg/dL 154 MEDICATIONS: Current Outpatient Prescriptions: Hydrochlorothiazide 12.5 mg capsule TAKE ONE CAPSULE BY MOUTH DAILY hydroxychloroquine (PLAQUENIL) 200 mg tablet Take by mouth twice daily. nitroglycerin sublingual (NITROQUICK) 0.4 mg SL tablet Dissolve 1 tablet under the tongue as needed. FOR CHEST PAIN. IF NO RELIEF CALL [address] (PROTONIX) 40 mg tablet TAKE ONE TABLET BY MOUTH DAILY ONE-HALF HOUR BEFORE BREAKFAST ON EMPTY stomach metFORMIN (GLUCOPHAGE) 500 mg tablet TAKE TWO TABLETS BY MOUTH TWICE DAILY WITH MEALS glimepiride (AMARYL) 4 mg tablet TAKE ONE TABLET BY MOUTH DAILY WITH BREAKFAST metoprolol succinate ER (TOPROL XL) 50 mg 24 hr tablet TAKE ONE TABLET BY MOUTH EVERY DAY oxybutynin ER (DITROPAN XL) 10 mg 24 hr tablet Take 10 mg by mouth once daily. lithium carbonate ER 450 mg CR tablet Take 2 tablets by mouth twice daily. (Patient taking differently: Take 900 mg by mouth three times daily. ) aspirin, enteric coated (ASPIR-LOW) 81 mg EC tablet Take 1 tablet by mouth once daily. sertraline (ZOLOFT) 100 mg tablet Take 1 tablet by mouth twice daily. FARXIGA 10 mg tab TAKE ONE TABLET BY MOUTH DAILY No current facility-administered medications for this visit. ALLERGIES: ALLERGIES No Known Allergies PAST MEDICAL HISTORY Diagnosis Date - Anemia - Bipolar affect, depressed (HCC) - Diabetes mellitus - Elevated liver enzymes - Esophageal reflux - GERD (gastroesophageal reflux disease) - Hypertension - Leukocytosis, unspecified - Obstructive sleep apnea (adult) (pediatric) - Personal history of colonic polyps - Urge incontinence 02/01/2017 PAST SURGICAL HISTORY Procedure Laterality Date - APPENDECTOMY 1976 - COLONOSCOP W/ OR W/O [facility] SPEC 02/13/2017 Colonoscopy mac - COLONOSCOPY 04/17/2011 X6. TA in 2008 - EGD W/O OR W/BRUSH/WASH 06/09/14 EGD - EGD W/O OR W/BRUSH/WASH 02/13/2017 EGD mac - FOOT RIGHT OP SURGERY 1992 rebuilt bottom of right foot - HEART CATHETERIZATION - LIGATE FALLOPIAN TUBE 1982 - REMOVAL OF GALLBLADDER 1977 - SCREENING COLONOSCOPY, NOT HIGH RISK PT 04/17/2011 next 04/17/16, Dr. Dimitris Staton Brule - SCREENING COLONSCOPY NOT HIGH RISK - TOTAL ABDOM HYSTERECTOMY Hysterectomy, LEONILA - TOTAL HIP REPLACEMENT bilateral 2007 right hip, 2010 lef t hip FAMILY HISTORY Problem Relation Age of Onset - Diabetes Mother - Hypertension Mother - Cancer Father lung cancer - Diabetes Father - Heart Father CA x 2 - Hypertension Father - Diabetes Maternal Grandmother - Diabetes Maternal Grandfather - Diabetes Paternal Grandmother - Hypertension Paternal Grandmother - Diabetes Paternal Grandfather - Heart Paternal Grandfather CA Social History Marital status: Spouse name: Years of education: Number of children: 3 Social History Main Topics Smoking status: Former Smoker Packs/day: 1.00 Years: 9.00 Quit date: 01/08/1990 Smokeless tobacco: Former User Alcohol use: Yes Comment: extremely rare Drug use: No Sexual activity: No Other Topics Concern Service No Blood Transfusions Yes Seat Belt Yes Self-Exams No Reviewed current medications, allergies, past medical history, surgical history, family history and social history today. REVIEW OF SYSTEMS All other reviewed and negative other than HPI. HEALTH MAINTENANCE: Reviewed health maintenance issues today and recommended the following in detail. DTAP,TDAP,TD(1 - Tdap) due on 1978 DILATED RETINAL EXAM due on 11/05/2017 VITALS: BP 124/64 Pulse 60 Temp 36.9 ?C (98.4 ?F) (Tympanic) Resp 16 Ht 163.2 cm (5' 4.25) Wt 118.8 kg (262 lb) BMI 44.62 kg/m? Last 4 Encounter Wt Readings: Date: Wt: 04/03/2018 118.8 kg (262 lb) 12/27/2017 118.1 kg (260 lb 6.4 oz) 12/05/2017 118.4 kg (261 lb) 10/03/2017 117 kg (258 lb) PHYSICAL EXAMINATION: General appearance: Well appearing, alert, in no acute distress, well-hydrated, well nourished. Skin: Skin color, texture, turgor normal, no suspicious rashes or lesions Head: Normocephalic, no masses, lesions, tenderness or abnormalities Neck: Supple, no adenopathy; thyroid symmetric, normal size, no bruits Lungs: Lungs clear to auscultation. No wheezing, rhonchi, rales Heart: RRR, soft murmur. Abdomen: Normal abdominal exam, Abdomen soft, non-tender. Bowel sounds normal. No masses, organomegaly Extremities: No deformities, edema, skin discoloration, clubbing or cyanosis. Good capillary refill. Musculoskeletal: No joint swelling, deformity, or tenderness ASSESSMENT/PLAN: 1. Positive MATY (antinuclear antibody) - ICD9: 795.79, ICD10: R76.8 (primary diagnosis) - reminded to see ophto since on placquenil. Continue meds. - CONSULT TO OPHTHALMOLOGY 2. Obstructive sleep apnea (adult) (pediatric) - ICD9: 327.23, ICD10: G47.33 - declines treatment. 3. Paroxysmal atrial fibrillation (HCC) - ICD9: 427.31, ICD10: I48.0 - continue meds. Has declined anticoag in the past. Reminded to see cardio. - call if any chest pain or shortness of breath. - METOPROLOL SUCCINATE ER 50 MG TABLET,EXTENDED RELEASE 24 HR - CONSULT TO CARDIOLOGY 4. Morbid obesity (HCC) - ICD9: 278.01, ICD10: E66.01 - work on diet. 5. Type 2 diabetes mellitus without complication, without long-term current use of insulin (HCC) - ICD9: 250.00, ICD10: E11.9 The patient is new to me. - Continue current medications - CONSULT TO OPHTHALMOLOGY - HGB A1C 6. Essential hypertension - ICD9: 401.9, ICD10: I10 - good control - Continue current medication(s) - Goal of BP <140/90 - HYDROCHLOROTHIAZIDE 12.5 MG CAPSULE 7. Bipolar affective disorder, remission status unspecified (HCC) - ICD9: 296.80, ICD10: F31.9 - continue to see psych 8. Gastroesophageal reflux disease, esophagitis presence not specified - ICD9: 530.81, ICD10: K21.9 - PANTOPRAZOLE 40 MG TABLET,DELAYED RELEASE 9. Anemia, unspecified type - ICD9: 285.9, ICD10: D64.9 - check labs. - FERRITIN BLD - FOLATE SERUM - RETIC COUNT - VITAMIN B12 BLOOD - IRON + TIBC - CBC + DIFF 10. Systemic lupus erythematosus, unspecified SLE type, unspecified organ involvement status (HCC) - ICD9: 710.0, ICD10: M32.9 - as above. 11. Urge incontinence - ICD9: 788.31, ICD10: N39.41 - can stop meds. Refuses return to urology 12. Fatty liver - ICD9: 571.8, ICD10: K76.0 - reinforced following with gi - COMP METABOLIC PANEL - CONSULT TO GASTROENTEROLOGY 13. Murmur - ICD9: 785.2, ICD10: R01.1 - check echo - ECHO Yandel Bush MD RTO in three months and prn. Yandel Bush 04/03/2018 9:43 AM Signed We would like to thank you for choosing to have us care for your medical needs. We are constantly working to try and make your office experience a good one and have developed new options for your medical care. We now offer OPEN ACCESS SCHEDULING in our office. Our office works a little different because we have a medical team that works together that includes Dr. Bush, Walker JUÁREZ, and our nursing staff. Open access means that you can choose to come in for routine visits or acute visits with our office five days a week, without calling first or scheduling an appointment ahead of time. This allows you to be seen when you want to be seen by just stopping at the front end developer on arrival. It also allows you to be taken care of by the same medical team each and every time you have an issue. This service is ONLY for patients of Dr. Bush and Walker Sheridan and, usually, our wait times are not different from our regular office visits. We also still also have scheduled office visits available for those who do not wish to be able to walk in to be seen. Open access hours are: Saturday 8 am-6 pm Saturday 8 am-4 pm Saturday 8 am-4 pm 8 am-6 pm Saturday 8 am-4 pm Please remember that we are also available by phone at [phone]. You can also contact our office directly by using the MESSAGE MY DOCTOR tab on your my chart for non emergent questions or issues. Referring Provider: MILLY HAWLEY ([facility]) [[id number]] Allergies As of Date: 04/03/2018 (No Known Allergies) Date Reviewed: 04/03/2018 Reviewed by: Kylee Posey LPN - Fully Assessed Reason for Visit: Establish Care [42] Primary Visit Diagnosis:Positive MATY (antinuclear antibody) [R76.8] Other Visit Diagnoses:Obstructive sleep apnea (adult) (pediatric) [G47.33] Paroxysmal atrial fibrillation (HCC) [I48.0] Morbid obesity (HCC) [E66.01] Type 2 diabetes mellitus without complication, without long-term current use of insulin (HCC) [E11.9] Essential hypertension [I10] Bipolar affective disorder, remission status unspecified ([facility]) [F31.9] Gastroesophageal reflux disease, esophagitis presence not specified [K21.9] Anemia, unspecified type [D64.9] Systemic lupus erythematosus, unspecified SLE type, unspecified organ involvement status ([facility]) [M32.9] Urge incontinence [N39.41] Fatty liver [K76.0] Murmur [R01.1] Order(s):Hydrochlorothiazide 12.5 mg capsuleTake 1 capsule by mouth once daily.Disp: 90 capsuleRfl: [address] (PROTONIX) 40 mg tabletTake 1 tablet by mouth once daily.Disp: 90 tabletRfl: 1 metoprolol succinate ER (TOPROL XL) 50 mg 24 hr tabletTake 1 tablet by mouth once daily.Disp: 90 tabletRfl: 3 ECHO [616619] Order #: [id number]: 1 FUTURE CONSULT TO CARDIOLOGY [9004] Order #: [id number]: 1 FERRITIN BLD [SQFERR] Order #: [id number] FUTURE FOLATE SERUM [SQSERFOL] Order #: [id number] FUTURE RETIC COUNT [SQRETIC] Order #: [id number] FUTURE VITAMIN B12 BLOOD [SQB12] Order #: [id number] FUTURE IRON + TIBC [SQIRON] Order #: [id number] FUTURE CBC + DIFF [SQCBCDIF] Order #: [id number] FUTURE COMP METABOLIC PANEL [SQCMP] Order #: [id number] FUTURE CONSULT TO GASTROENTEROLOGY [9010] Order #: [id number]: 1 CONSULT TO OPHTHALMOLOGY [9024] Order #: [id number]: 1 HGB A1C [DSKOG7D] Order #: [id number] FUTURE Prescriptions as of 04/03/2018 Sig: HYDROCHLOROTHIAZIDE 12.5 MG C* Take 1 capsule by mouth once * PANTOPRAZOLE 40 MG TABLET,DEL* Take 1 tablet by mouth once d* METOPROLOL SUCCINATE ER 50 MG* Take 1 tablet by mouth once d* HYDROXYCHLOROQUINE 200 MG TAB* Take by mouth twice daily. NITROGLYCERIN 0.4 MG SUBLINGU* Dissolve 1 tablet under the t* METFORMIN 500 MG TABLET TAKE TWO TABLETS BY MOUTH TWI* GLIMEPIRIDE 4 MG TABLET TAKE ONE TABLET BY MOUTH LISA* LITHIUM CARBONATE ER 450 MG T* Take 2 tablets by mouth twice* Patient taking differently: Take 900 mg by mouth three ti* ASPIRIN 81 MG TABLET,DELAYED * Take 1 tablet by mouth once d* SERTRALINE 100 MG TABLET Take 1 tablet by mouth twice * FARXIGA 10 MG TABLET TAKE ONE TABLET BY MOUTH DAILY Problem List As Of Date 04/03/2018 Noted Resolved Type 2 diabetes mellitus without complication (*INVALID FOR* Hypertension [I10] INVALID FOR* Bipolar affective disorder [F31.9] INVALID FOR* More... Morbid obesity [E66.01] INVALID FOR* Fatty liver [K76.0] INVALID FOR* Paroxysmal atrial fibrillation [I48.0] INVALID FOR* History of colonic polyps [Z86.010] INVALID FOR* Obstructive sleep apnea (adult) (pediatric) [G4*INVALID FOR* GERD (gastroesophageal reflux disease) [K21.9] INVALID FOR* Urge incontinence [N39.41] INVALID FOR* Positive MATY (antinuclear antibody) [R76.8] INVALID FOR* More... p [M32.9] INVALID FOR*04/03/2018 More... Other instructions from your clinician: We would like to thank you for choosing to have us care for your medical needs. We are constantly working to try and make your office experience a good one and have developed new options for your medical care. We now offer OPEN ACCESS SCHEDULING in our office. Our office works a little different because we have a medical team that works together that includes Dr. Bush, Walker Sheridan PA, and our nursing staff. Open access means that you can choose to come in for routine visits or acute visits with our office five days a week, without calling first or scheduling an appointment ahead of time. This allows you to be seen when you want to be seen by just stopping at the front end developer on arrival. It also allows you to be taken care of by the same medical team each and every time you have an issue. This service is ONLY for patients of Dr. Bush and Walker Sheridan and, usually, our wait times are not different from our regular office visits. We also still also have scheduled office visits available for those who do not wish to be able to walk in to be seen. Open access hours are: Saturday 8 am-6 pm Saturday 8 am-4 pm Saturday 8 am- 4 pm 8 am- 6 pm Saturday 8 am-4 pm Please remember that we are also available by phone at [phone]. You can also contact our office directly by using the MESSAGE MY DOCTOR tab on your my chart for non emergent questions or issues. Prescriptions ordered this encounter Disp Refills Start End HYDROCHLOROTHIAZIDE 12.5 MG CAPSULE 90 c* 1 04/03/2018 Route: ORAL Sig: Take 1 capsule by mouth once daily. PANTOPRAZOLE 40 MG TABLET,DELAYED RE* 90 t* 1 04/03/2018 Route: ORAL Sig: Take 1 tablet by mouth once daily. METOPROLOL SUCCINATE ER 50 MG TABLET* 90 t* 3 04/03/2018 Route: ORAL Sig: Take 1 tablet by mouth once daily. Medications Discontinued During This Encounter Estradiol (ESTRACE) 0.5 mg tablet 04/03/2018 Class: Historical Med Route: ORAL Sig: Take 0.5 mg by mouth once daily. Disc: Reason for discontinue is not on file. oxybutynin ER (DITROPAN XL) 10 mg 24* 04/03/2018 Class: Historical Med Route: ORAL Sig: Take 10 mg by mouth once daily. Disc: Reason for discontinue is not on file. Hydrochlorothiazide 12.5 mg capsule 90 c* 1 10/22/2017 04/03/2018 Cmt: This prescription was filled on 10/22/2017. Any refills authorized will be placed on file. Sig: TAKE ONE CAPSULE BY MOUTH DAILY Disc: Reason for discontinue is not on file. pantoprazole DR (PROTONIX) 40 mg tab* 90 t* 1 09/24/2017 04/03/2018 Cmt: This prescription was filled on 09/23/2017. Any refills authorized will be placed on file. Sig: TAKE ONE TABLET BY MOUTH DAILY ONE-HALF HOUR BEFORE BREAKFAST ON EMPTY stomach Disc: Reason for discontinue is not on file. metoprolol succinate ER (TOPROL XL) * 90 t* 3 06/24/2017 04/03/2018 Sig: TAKE ONE TABLET BY MOUTH EVERY DAY Disc: Reason for discontinue is not on file. Disposition: Return in about 3 months (around 07/04/2018). Follow-up and Disposition History Recorded Encounter Status:Closed by YANDEL BUSH MD on 04/03/18 ALBUMIN/CREAT RATIO Collected: 04/01/2018 Status: F Source: [place] 1:06 PM [facility] REPOSITORY TYPE CODE TESTS RESULT OUT OF REFERENCE UNITS RANGE LAB UCRR 20-300 mg/dL Creatinine,Ur 94.5 ine,Ran LAB UALBR 0.0-23.0 mg/L Albumin Urine 14.1 Random LAB UALBCR 0-30 mg/g Albumin/Creat 15 Ratio Result Comment: 30 to 300 mg/g indicates an increased risk for diabetic nephropathy. Greater than 300 mg/g is consistent with clinical nephropathy. (Am J Kidney Disease 1995, 25:107) Performed By: #### UACR #### [facility] [address] [place] [address] [facility] Observed: 03/18/2018 Status: COMPLETED Source: [place] 12:00 AM [facility] REPOSITORY Patient Outreach (INTM[facility]) ELLI GUERRERO ([id number]) 1960 F Date Time Provider Department 03/18/18 JAMAL SCHNEIDER [facility] During your visit today, we recorded the following information about you: Allergies As of Date: 03/18/2018 (No Known Allergies) Date Reviewed: 12/27/2017 Reviewed by: Evita Vizcarra Ma - Fully Assessed Visit Diagnosis:Medication management [Z79.899] Order(s):ALBUMIN/CREAT RATIO RND UR [SQUACR] Order #: [id number] FUTURE Prescriptions as of 03/18/2018 Sig: X FARXIGA 10 MG TABLET TAKE ONE TABLET BY MOUTH DAILY X HYDROCHLOROTHIAZIDE 12.5 MG C* TAKE ONE CAPSULE BY MOUTH PRICILA* HYDROXYCHLOROQUINE 200 MG TAB* Take by mouth twice daily. NITROGLYCERIN 0.4 MG SUBLINGU* Dissolve 1 tablet under the t* X PANTOPRAZOLE 40 MG TABLET,DEL* TAKE ONE TABLET BY MOUTH LISA* X METFORMIN 500 MG TABLET TAKE TWO TABLETS BY MOUTH TWI* X GLIMEPIRIDE 4 MG TABLET TAKE ONE TABLET BY MOUTH LISA* X METOPROLOL SUCCINATE ER 50 MG* TAKE ONE TABLET BY MOUTH EVER* X ESTRADIOL 0.5 MG TABLET Take 0.5 mg by mouth once pricila* X OXYBUTYNIN CHLORIDE ER 10 MG * Take 10 mg by mouth once lisa* LITHIUM CARBONATE ER 450 MG T* Take 2 tablets by mouth twice* Patient taking differently: Take 900 mg by mouth three ti* ASPIRIN 81 MG TABLET,DELAYED * Take 1 tablet by mouth once d* SERTRALINE 100 MG TABLET Take 1 tablet by mouth twice * Problem List As Of Date 03/18/2018 Noted Resolved Type 2 diabetes mellitus without complication (*INVALID FOR* Hypertension [I10] INVALID FOR* Bipolar affective disorder [F31.9] INVALID FOR* More... Morbid obesity [E66.01] INVALID FOR* Fatty liver [K76.0] INVALID FOR* Paroxysmal atrial fibrillation [I48.0] INVALID FOR* History of colonic polyps [Z86.010] INVALID FOR* Obstructive sleep apnea (adult) (pediatric) [G4*INVALID FOR* More... GERD (gastroesophageal reflux disease) [K21.9] INVALID FOR* More... Urge incontinence [N39.41] INVALID FOR* Positive MATY (antinuclear antibody) [R76.8] INVALID FOR* More... Encounter Status:Closed by [employer], PRODUSER on 09/05/18 AMMONIA Collected: 03/17/2018 Status: F Source: [place]ARI 11:06 AM [facility] REPOSITORY TYPE CODE TESTS RESULT OUT OF REFERENCE UNITS RANGE LAB L503.5510 11-32 umol/L High AMMONIA 39.0 Performed By: #### L503.5510 #### [facility] [address] [place], [address] BASIC METABOLIC Collected: 03/17/2018 Status: F Source: SHARI PROFILE (BMP) 11:06 AM [facility] REPOSITORY TYPE CODE TESTS RESULT OUT OF RANGE REFERENCE UNITS LAB L501.0100 74-106 mg/dL High GLU 233 Result Comment: Glucose result greater than or equal to 200 mg/dL suggests DIABETES MELLITUS per A.D.A. criteria. Please note revised GLUCOSE reference range effective 2017. LAB L501.1000 7-18 mg/dL Normal BUN 10 LAB L501.1100 0.55-1.02 mg/dL Normal CREAT,SERUM 0.75 Result Comment: The validity of the calculated GFR AND GFRAA in patients over 70 years has not been determined. Clinical correlation is essential. LAB L501.1110 >60 mL/min Normal EST GFR 85 Result Comment: Non- GFR Calc LAB L501.1115 >60 mL/min Normal EST GFR - AA 102 Result Comment: GFR Calc LAB L501.1300 10-20 RATIO Normal BUN/CRE 13.4 LAB L501.2200 8.5-10.1 mg/dL CA Normal 9.2 LAB L501.5300 136-145 mmol/L NA Normal 139 LAB L501.5600 3.5-5.1 mmol/L K Normal 3.6 LAB L501.5900 98-107 mmol/L CL Normal 104 LAB L501.6100 21.0-32.0 mmol/L Normal CO2 28.0 LAB L501.6200 5-15 Normal GAP 7 Performed By: #### L500.2500, L501.9520 #### [facility] [address] [place], [place], [id number] THYROID STIM HORMONE Collected: 03/17/2018 Status: F Source: SHARI (TSH) 11:06 AM [facility] REPOSITORY TYPE CODE TESTS RESULT OUT OF RANGE REFERENCE UNITS LAB L501.9520 0.358-3.74 uIU/mL Normal TSH 1.32 Performed By: #### L500.2500, L501.9520 #### [facility] [address] [place], [address] LITHIUM Collected: 03/17/2018 Status: F Source: SHARI 11:06 AM [facility] REPOSITORY Order Comment: Date of Last Dose: 03/17/18 Time of Last Dose: 0900 TYPE CODE TESTS RESULT OUT OF RANGE REFERENCE UNITS LAB L501.9060 0.60-1.20 mmol/L Normal LI 0.90 Performed By: #### L501.9060 #### [facility] [address] [place], [address] EMERGENCY REPORT Observed: 03/14/2018 Status: F Source: [facility] 7:35 PM [facility] EMERGENCY ROOM REPORT NAME ACCOUNT SEX AGE ADMIT DISCHARGE PT MED. RECORD# NUMBER DATE DATE TYPE CESAR [id number] [place] 57 02/26/18 02/26/18 3 ELLI Vargas [id number] ROOM: ER DATE OF : 1960 DICTATING PHYSICIAN: William Wynn Date seen was February 26, 2018 at 8:40 p.m. HISTORY OF PRESENT ILLNESS: This is a 57-year-old female complaining of left-sided chest pressure off and on for the past day. If the pain gets bad enough, she will take a nitroglycerin. She has been on the nitroglycerin off and on for the past 3 years. She seldom has to take it and has only refilled the prescription once in 3 years, but when she does take the nitroglycerin it does work and it makes her chest pain go away. She describes the chest pain as heaviness and the nitroglycerin does help. Usually the chest heaviness does radiate to her left arm. She denies any shortness of breath. The left arm pain is new. She thinks it is just from her lupus. She denies any nausea or vomiting. She denies any diaphoresis. She did have a heart catheterization approximately 15 years ago. Her last stress test was 5 years ago, and was done here. She states that the chest pain is nothing new. Her left arm pain is worse with movement. PAST MEDICAL HISTORY: Atrial fibrillation, diabetes, hypertension, lupus, and cirrhosis of the liver. PAST SURGICAL HISTORY: Includes appendectomy, cholecystectomy, bilateral hip surgeries in the past, hysterectomy, and then she did have the heart catheterization 15 years ago. MEDICATIONS: Current medications include metoprolol. ALLERGIES: No known drug allergies. FAMILY HISTORY: Includes her dad who had a myocardial infarction at age 69, which presented as left shoulder pain. SOCIAL HISTORY: She is not a smoker. She does admit to occasional alcohol use and does live at home with her family. REVIEW OF SYSTEMS: Positive for chest pain and left arm pain. She denies any shortness of breath, cough, sputum, wheezing, abdominal pain, nausea, vomiting, diarrhea, constipation, melena, hematochezia, headache, numbness, unsteady gait, weakness, neck or back pain, joint pain, skin rash, swelling, hives, hayfever, or swollen Page 1 of 3 MARTINEGail ELLI M Emergency Room Report glands. Further review of systems is negative. PHYSICAL EXAMINATION: Vitals: Blood pressure 120/58, pulse 74, respirations 18, temperature 97.5, pulse ox 96%, and weight 260 pounds. The patient is alert and oriented x3. She presently appears in no acute distress. She is pleasant and cooperative. HEENT: Head appears atraumatic. Pupils are equal and reactive to light. Red reflex intact bilaterally. Extraocular muscles are intact. No conjunctival injection. Nose exhibits no rhinorrhea or epistaxis. Mouth: Mucous membranes are moist. No pharyngeal erythema. Uvula is midline and elevates. Neck is supple. Trachea is midline. No JVD or lymphadenopathy. No posterior cervical tenderness. No nuchal rigidity. Lungs: Mildly diminished throughout, but otherwise clear with no wheezing or other adventitious sounds. No respiratory distress. CV: Heart rate and rhythm is regular with some mildly diminished heart sounds, but no murmur noted. Abdomen is soft, obese, nontender with normoactive bowel sounds x4 quadrants. No guarding or rigidity. No rebound. No palpable abdominal masses. No hepatosplenomegaly. Back exhibits no midline or paraspinal region tenderness. No increased paraspinal muscle rigidity. Negative Marvin's sign. Extremities: No edema or cyanosis. Peripheral pulses are intact. No motor or sensory deficits are noted. 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 Skin is warm and dry. No diaphoresis or rash. Neurologic examination shows the patient to be alert and oriented x4. No motor or sensory deficits are noted. Normal speech. The patient is very pleasant and cooperative. Normal affect. She is very happy and smiling and jokes a lot. DIAGNOSTIC DATA: White count was 6.1, hemoglobin 10.4, hematocrit 31.8, platelet count 140,000. D-dimer was elevated at 251. Magnesium was 1.9. BNP was 37. Troponin was normal at less than 0.01. Sodium was 136, potassium 3.4, chloride 102, Co2 23.8, BUN 13, and creatinine 0.8. Glucose was elevated at 248. Liver functions came back within normal limits. Anion gap was 14. Chest x- ray showed no acute infiltrate or failure. Due to the elevated D-dimer, I did do a CT chest. It showed no findings of pulmonary embolism. No aortic aneurysm or dissection. No pneumothorax. No abnormal opacities within the lungs. No pleural fluid collections. No hilar or mediastinal lymph node enlargement. No pericardial effusion. There was a mild nonspecific splenomegaly measuring at least 16.3 mm. EMERGENCY DEPARTMENT COURSE AND TREATMENT: The patient has remained pain free here during the emergency department stay. DIAGNOSIS: Chest pain. PLAN/DISPOSITION: I did want to admit her for a stress test since it has been many years since her last stress test and heart catheterization. However, she is refusing. She is willing to follow up as an outpatient. She really does not have a family doctor now because her other family doctor that she had has moved, so I am going to refer her to [facility]. She has some other family members that are seen there. I have asked her to call their office tomorrow to arrange follow up within the next few days. We can get an outpatient stress done. In the meantime, if her symptoms become Page 2 of 3 ELLI GUERRERO Emergency Room Report worse or any other symptoms develop, return here to the emergency department. The patient was discharged in a clinically stable condition. Nursing notes reviewed. Dictated By: William Wynn DO TD: 03/09/18 13:07 JOB #: [id number] Transcribed by: am Electronically signed by: E-Sign: Dr. William Wynn D.O. 03/14/18 19:34 Page 3 of 3 ELLI GUERRERO Emergency Room Report EMERGENCY REPORT Observed: 03/02/2018 Status: F Source: [facility] 7:50 PM [facility] EMERGENCY ROOM REPORT NAME ACCOUNT SEX AGE ADMIT DISCHARGE PT MED. RECORD# NUMBER DATE DATE TYPE CESAR [id number] F 57 02/26/18 02/26/18 3 ELLI Vargas [id number] ROOM: ER DATE OF : 1960 DICTATING PHYSICIAN: William Wynn ADDENDUM DIAGNOSTIC DATA: White count was 6.1, hemoglobin 10.4, hematocrit 31.8, and platelet count 140,000. D-dimer was elevated at 251. Magnesium was 1.9. BNP was normal at 37. Troponin was normal at less than 0.01. Sodium was 136, potassium 3.4, chloride 102, CO2 of 23.8, BUN 13, and creatinine 0.8. Glucose was elevated at 248. Liver functions came back within normal limits. Anion gap was 14. Chest x-ray showed no acute infiltrate or failure. Due to the elevated D-dimer, I did do a CT of the chest, which showed no findings of pulmonary embolism. No aortic aneurysm or dissection. No pneumothorax. No abnormal opacities within the lungs. No pleural fluid collections. No hilar or mediastinal lymph node enlargement. No pericardial effusion. There was mild nonspecific splenomegaly measuring at least 16.3 cm. EMERGENCY DEPARTMENT COURSE AND TREATMENT: The patient has remained pain-free here during her Emergency Department stay. I did want to admit her for a stress test since it has been many years since her last stress test and heart catheterization. However, she is refusing. She is willing to follow up as an outpatient. She really does not have a family doctor now because her other family doctor that she had has moved, so I am going to refer her to [facility]. She has some other family members that are seen there. I have asked her to call their office tomorrow to arrange follow-up within the next few days. We can get an outpatient stress test done. In the meantime, if her symptoms become worse or if any other problems develop, return here to the Emergency Department. The patient was discharged in clinically stable condition. Nurse's notes were reviewed. DIAGNOSIS: Chest pain. D: William Wynn DO TD: 02/27/18 07:12 JOB #: [id number] Transcribed by: ju Electronically signed by: E-Sign: Dr. William Wynn D.O. 03/02/18 19:49 Page 1 of 1 ELLI GUERRERO Emergency Room Report CT CHEST (PE PROTOCOL) Observed: 02/26/2018 Status: F Source: [place] 11:04 PM [place] [id number] Patient: ELLI GUERRERO Phone#: : 1960 Age: 57 Gender: F Pt. Type: ER Account: [id number] Location: 052 Ordering: WILLIAM WYNN Exam Date: 02/26/201822:50 Family Phys: NO DOCTOR Charge Code: [id number] Physician: Creek Order #: [id number] DLP Dose#: 10.50 PROCEDURE: CT CHEST WITH CONTRAST FOR PE COMPARISON: None. INDICATIONS: Elevated D-Dimer TECHNIQUE: After obtaining the patient's consent, CT images were obtained with non-ionic intravenous contrast material. Multi-planar images were created to optimize visualization of vascular anatomy with MPR/MIPS and 3D imaging. All CT scans at this facility use dose modulation, iterative reconstruction, and/or weight based dosing when appropriate to reduce radiation dose to as low as reasonably achievable. IV CONTRAST: Omnipaque 350,89ml TOTAL DOSE: 10.50 CTDIvol(mGy) FINDINGS: VASCULATURE: Normal. No visible pulmonary arterial thrombus or attenuation. AORTA: Normal. No aneurysm or dissection. LUNGS: Mean atelectasis is present in both lung bases. No visible pulmonary disease. BLAIR: Normal. No mass or adenopathy. MEDIASTINUM: Normal. No mass or adenopathy. CARDIAC: Normal. No enlargement, pericardial thickening, or significant calcification. PLEURA: Normal. No mass or effusion. CHEST WALL: Normal. No mass or axillary adenopathy. LIMITED ABDOMEN: The spleen is partially imaged but is enlarged. BONES: Dorsally projecting vertebral body osteophyte is present at the lower thoracic level. OTHER: Negative. CONCLUSION: No acute disease. Splenomegaly. [facility] [address] [place] [id number] Patient: ELLI GUERRERO Phone#: : 1960 Age: 57 Gender: F Pt. Type: ER Account: [id number] Location: 052 Ordering: WILLIAM WYNN Exam Date: 02/26/2018/22:50 Family Phys: NO DOCTOR Charge Code: [id number] Physician: Creek Order #: [id number] DLP Dose#: 10.50 Dictated by: Carmen Correa MD on 02/27/2018 at 8:23 Approved by: Carmen Correa MD on 02/27/2018 at 8:23 CBC Collected: 02/26/2018 Status: F Source: [place] 9:01 PM [facility] REPOSITORY TYPE CODE TESTS RESULT OUT OF RANGE REFERENCE UNITS LAB CBC(LOINC) CBC Result Comment: CBC-COMPLETE BLOOD COUNT LAB WBC(LOINC) 4.5 - 10.8 x 10EE3/UL WBC 6.1 LAB RBC(LOINC) 4.10 - x 10EE6/UL 5.30 RBC Low 3.93 LAB HEMOGLOBIN(LOINC 12.0 - g/dl ) 16.0 Low HEMOGLOBIN 10.4 LAB HEMATOCRIT(LOINC 34.0 - % ) 46.0 Low HEMATOCRIT 31.8 LAB MCV(LOINC) 80 - 99 fl MCV 81 LAB MCH(LOINC) 27 - 33 pg MCH Low 26 LAB MCHC(LOINC) 32 - 36 X10 3 MCHC 33 LAB RDW/CV(LOINC) 12.0 - % 15.6 RDW/CV High 16.3 LAB PLATELET(LOINC) 150 - 450 x10EE3/UL PLATELET Low 140 LAB MPV(LOINC) 6.6 - 10.5 fl MPV 8.1 Result Comment: AUTOMATED DIFFERENTIAL LAB NEUT %(LOINC) 46.0 - 76.0 % NEUT % 68.4 LAB LYMPH %(LOINC) 20.0 - 45.0 % LYMPH % 23.7 LAB MONOS %(LOINC) 0.0 - 10.0 % MONOS % 5.3 LAB EO %(LOINC) 0.0 - 7.0 % EO % 2.3 LAB BASO %(LOINC) 0.0 - 2.0 % BASO % 0.3 LAB Lymph #(LOINC) 0.80 - 2.80 x10EE3/U L Lymph # 1.50 LAB Neut #(LOINC) 1.50 - 7.10 x10EE3/U L Neut # 4.20 LAB Walsh #(LOINC) 0.20 - 1.00 x10EE3/U L Walsh # 0.30 LAB EO #(LOINC) 0.00 - 0.50 x10EE3/U L EO # 0.10 LAB Baso #(LOINC) 0.00 - 0.10 x10EE3/U L Baso # 0.00 LAB MANUAL DIFF(LOINC) MANUAL DIFF N/A LAB MORPHOLOGY(INC ) MORPHOLOGY N/A Result Comment: {CD] Performed By: #### [id number] #### [facility],[address] [place], [place] [address] D-DIMER, QUANTITATIVE Collected: 02/26/2018 Status: F Source: [facility] 9:01 PM [facility] REPOSITORY TYPE CODE TESTS RESULT OUT OF REFERENCE UNITS RANGE LAB D-DIMER, QUANTITATI VE(LOINC) D-DIMER, QUANTITATIVE Result Comment: QUANT D-DIMER LAB D-DIMER 0 - 230 ng/ml QUANT(LOINC) High D-DIMER QUANT 251 Performed By: #### [id number] #### [facility],[address] [place], [place] [address] CMP WITH EGFR Collected: 02/26/2018 Status: F Source: [facility] 9:01 PM [facility] REPOSITORY TYPE CODE TESTS RESULT OUT OF RANGE REFERENCE UNITS LAB CMP with eGFR(LOINC) CMP with eGFR Result Comment: COMPREHENSIVE METABOLIC PANEL LAB SODIUM(LOINC) 136 - 145 mmol/l SODIUM 136 LAB POTASSIUM(LOINC) 3.5 - 5.1 mmol/L Low POTASSIUM 3.4 LAB CHLORIDE(LOINC) 98 - 107 mmol/L CHLORIDE 102 LAB CO2(LOINC) 21.0 - mmol/L 31.0 CO2 23.8 LAB GLUCOSE(LOINC) 74 - 106 mg/dl GLUCOSE High 248 LAB BUN(LOINC) 6 - 20 mg/dl BUN 13 LAB CREATININE(LOINC) 0.6 - 1.2 mg/dl CREATININE 0.8 LAB AST/SGOT(LOINC) 13 - 39 U/L AST/SGOT 30 LAB ALK PHOS(LOINC) 38 - 126 U/L ALK PHOS 91 LAB CALCIUM(LOINC) 8.6 - mg/dl 10.2 CALCIUM 9.7 LAB TOTAL 6.4 - 8.3 g/dl PROTEIN(LOINC) TOTAL PROTEIN 7.9 LAB ALBUMIN(LOINC) 3.4 - 4.8 g/dL ALBUMIN 4.2 LAB GLOBULIN(LOINC) 1.5 - 3.8 G/DL GLOBULIN 3.7 LAB A/G RATIO(LOINC) 0.9 - 1.6 A/G RATIO 1.1 LAB TOTAL BILI(LOINC) 0.0 - 1.5 mg/dl TOTAL BILI 0.4 LAB B/C RATIO(LOINC) 0 - 30 ratio B/C RATIO 16 LAB ALT/SGPT(LOINC) 8 - 35 U/L ALT/SGPT 17 LAB ANION GAP(LOINC) 10 - 20 mmol/L ANION GAP 14 LAB AGE(LOINC) years AGE 57 LAB eGFR(LOINC) 60 - 999 ML/MINUTE eGFR >60 LAB eGFR(AA)(LOINC) 60 - 999 ML/MINUTE eGFR(AA) >60 Result Comment: ACCORDING TO THE NATIONAL KIDNEY DISEASE EDUCATION PROGRAM(NKDE), A NORMAL eGFR IS A VALUE GREATER THAN OR EQUAL TO 60 ML/MIN/1.73 SQ METERS. CHRONIC KIDNEY DISEASE: <60mL/MIN/1.73 SQ METERS KIDNEY FAILURE: <15mL/MIN/1.73 SQ METERS THIS TEST SHOULD ONLY BE USED FOR PATIENTS 18 YEARS OF AGE AND OLDER. Performed By: #### [id number] #### [place] [address] MAGNESIUM Collected: 02/26/2018 Status: F Source: [facility] [address] [place] [address] REPOSITORY TYPE CODE TESTS RESULT OUT OF REFERENCE UNITS RANGE LAB MAGNESIUM( 1.6 - 2.6 mg/dl LOINC) MAGNESIUM 1.9 Performed By: #### [id number] #### [place] [address] TROPONIN Collected: 02/26/2018 Status: F Source: [facility] [address] [place] [address] REPOSITORY TYPE CODE TESTS RESULT OUT OF REFERENCE UNITS RANGE LAB TROPONIN 0.00 - 0.05 ng/ml I(LOINC) TROPONIN I <0.01 Result Comment: Elevated troponin (above the 99th percentile) usually indicates myocardial ischemia. Results must be interpreted within the clinical setting. 1.Non-ischemic pathology can also cause elevated troponin levels (e.g., acute pulmonary embolism, myocarditis, pericarditis, heart failure, intracranial injury, rhabdomyolisis, sepsis, shock and renal insufficiency). 2.Approximately 1% of healthy adults have elevated troponin levels. 3.Analytical false positive results rarely occur(due to multiple interferences such as heterophile antibodies). Performed By: #### [id number] #### [facility],[address] [place], [place] [id number] BNP (B-TYPE NATRIURETIC Collected: 02/26/2018 Status: F Source: [facility] PEPTIDE) 9:01 PM [facility] REPOSITORY TYPE CODE TESTS RESULT OUT OF RANGE REFERENCE UNITS LAB BNP(LOINC) 1 - 100 pg/ml BNP 37 Performed By: #### [id number] #### [facility],[address] [place], [place] [id number] CHEST 1 VIEW Observed: 02/26/2018 Status: F Source: [facility] 8:58 PM [facility] REPOSITORY [place] [address] Patient: ELLI GUERRERO Phone#: : 1960 Age: 57 Gender: F Pt. Type: ER Account: [id number] Location: [facility] Ordering: WILLIAM WYNN Exam Date: 02/26/2018/20:44 Family Phys: JAMAL SCHNEIDER Charge Code: [id number] Physician: Creek Order #: [id number] DLP Dose#: PROCEDURE: X-RAY CHEST 1 VIEW COMPARISON: [facility], XR, CHEST AP, 12/03/2012, 20:36. INDICATIONS: Chest Pain FINDINGS: LUNGS: Normal. No significant pulmonary parenchymal abnormalities. VASCULATURE: Normal. Unremarkable pulmonary vasculature. CARDIAC: Normal. No cardiac silhouette abnormality or cardiomegaly. MEDIASTINUM: Normal. No visible mass or adenopathy. PLEURA: Normal. No effusion or pleural thickening. BONES: Normal. No fracture or visible bony lesion. OTHER: Negative. CONCLUSION: No acute disease. No significant change has occurred. Dictated by: Carmen Correa MD on 02/27/2018 at 8:15 Approved by: Carmen Correa MD on 02/27/2018 at 8:15 CNCO Observed: 12/27/2017 Status: COMPLETED Source: [place] 11:41 AM [facility] REPOSITORY HNO ID: [id number] Author: Mammography Coordinator Service: (none) Author Type: Physician Type: Letter Filed: 12/30/2017 11:33 PM Note Text: December 27, 2017 PID: [id number] Elli Guerrero [address] [place] [address] Dear Ms. Guerrero, We are pleased to inform you that the results of your recent breast imaging exam on 12/27/2017 are normal. Early detection of cancer is very important. We also understand recommendations regarding breast cancer screening are controversial. Please discuss with your primary care provider which strategy is best for you and whether a mammogram is right for you. Your imaging studies and report will be kept on file at [facility] as part of your permanent medical record and are available for your continuing care. Thank you for allowing us to help in meeting your health care needs. Sincerely, Dr. Staton Interpreting Radiologist [facility] (Normal over 40) [facility] SCREENING Observed: 12/27/2017 Status: F Source: [place] 9:34 AM [facility] REPOSITORY * * *Final Report* * * DATE OF EXAM: Dec 27 2017 9:34AM [facility] [id number] - [facility] SCREENING / PROCEDURE REASON: Encounter for screening mammogram for malignant neoplasm of breast * * * * Physician Interpretation * * * * RESULT: #[id number] - [facility] SCREENING BILATERAL DIGITAL SCREENING MAMMOGRAM WITH CAD: 12/27/2017 HISTORY: Encounter For Screening Mammogram For Malignant Neoplasm Of Breast /Screening Mammogram - patient reports NO breast symptoms /Priors available for comparison. RESULT: TECHNIQUE: The study was acquired using full field digital technology and interpreted from soft copy. Current study was also evaluated with a Computer Aided Detection (CAD). Comparison is made to exam dated: 03/09/2014 mammogram - [facility]. The tissue of both breasts is predominantly fatty. No significant masses, calcifications, or other findings are seen in either breast. There has been no significant interval change. IMPRESSION: NEGATIVE There is no mammographic evidence of malignancy.A 1 year screening mammogram is recommended. Sonny Staton M.D. /penrad:12/27/2017 11:41:50 Sheet Fed Printer: Yulisa Engle RT(Francisco Javier)(M), [facility] letter sent: Normal over 40 Mammogram BI-RADS: 1 Negative Cycle Touring Guide: Luis Felipe Transcribe Date/Time: Dec 27 2017 9:07A Dictated by: SONNY STATON MD This examination was interpreted and the report reviewed and electronically signed by: SONNY STATON MD on Dec 27 2017 11:41AM EST [id number] CBC AND DIFFERENTIAL Collected: 12/27/2017 Status: F Source: [place] 8:[address] [facility] REPOSITORY TYPE CODE TESTS RESULT OUT OF REFERENCE UNITS RANGE LAB WBC 3.70-11.00 k/uL WBC 6.42 LAB RBC 3.90-5.20 m/uL RBC 3.90 LAB HGB 11.5-15.5 g/dL Low Hemoglobin 10.4 LAB HCT 36.0-46.0 % Low Hematocrit 34.0 LAB MCV 80.0-100.0 fL MCV 87.2 LAB MCH 26.0-34.0 pG MCH 26.7 LAB MCHC 30.5-36.0 g/dL MCHC 30.6 LAB RDWCV 11.5-15.0 % RDW-CV High 15.4 LAB PLTCT 150-400 k/uL Low Platelet Count 132 LAB MPV 9.0-12.7 fL MPV 10.9 LAB ANEUT % Neut% 72.0 LAB AANEUT 1.45-7.50 k/uL Abs Neut 4.61 LAB ALYMP % Lymph% 20.1 LAB AALYMP 1.00-4.00 k/uL Abs Lymph 1.29 LAB AMONO % Walsh% 4.7 LAB AAMONO <0.87 k/uL Abs Walsh 0.30 LAB AEOS % Eosin% 3.0 LAB AAEOS <0.46 k/uL Abs Eosin 0.19 LAB ABASO % Baso% 0.2 LAB AABASO <0.11 k/uL Abs Baso <0.03 LAB AUNRBC 0 /100 WBC NRBCs 0.0 LAB ABNRBC <0.01 k/uL Absolute nRBC <0.01 LAB DTYP DTYPE Auto Diff Performed By: #### CBCDIF #### [facility] [address] [place] [address] COMP METABOLIC PANEL Collected: 12/27/2017 Status: F Source: [place] 8:48 AM [facility] REPOSITORY TYPE CODE TESTS RESULT OUT OF REFERENCE UNITS RANGE LAB TP 6.3-8.0 g/dL Protein, High Total 8.5 LAB ALB 3.9-4.9 g/dL Albumin 4.5 LAB CA 8.5-10.2 mg/dL Calcium, Total 9.9 LAB TBIL 0.2-1.3 mg/dL Bilirubin, Total 0.4 LAB ALKP 32-117 U/L Alkaline Phosphatase 106 LAB AST 13-35 U/L AST 35 LAB GLU 74-99 mg/dL Glucose High 155 Result Comment: The [place] Diabetes Association (ADA) provides guidance for cutoff values for fasting glucose and random glucose. The ADA defines fasting as no caloric intake for at least 8 hours. Fas ting plasma glucose results between 100 to 125 mg/dL indicate increased risk for diabetes (prediabetes). Fasting plasma glucose results greater than or equal to 126 mg/dL meet the criteria for diagnosis of diabetes. In the absence of unequivocal hyperglycemia, results should be confirmed by repeat testing. In a patient with classic symptoms of hyperglycemia or hyperglycemic crisis, random plasma glucose results greater than or equal to 200 mg/dL meet the criteria for diagnosis of diabetes. Reference: Standards of Medical Care in Diabetes 2016, [place] [employer] Association. Diabetes Care. 2016.39(Suppl 1). LAB BUN 7-21 mg/dL BUN 11 LAB CRET 0.58-0.96 mg/dL Creatinine 0.66 LAB NA 136-144 mmol/L Sodium 139 LAB K 3.7-5.1 mmol/L Potassium 3.9 LAB CL 97-105 mmol/L Chloride 100 LAB CO2 22-30 mmol/L CO2 22 LAB AGAP 9-18 mmol/L Anion Gap 17 LAB ALT 7-38 U/L ALT 20 LAB GFRAA eGFR- Amer. >60 LAB GFRNAA . eGFR-All Other Races >60 Result Comment: eGFR (Estimated GFR) Units of measure: mL/min/1.73 meters squared eGFR is derived from the reexpressed MDRD Study equation using the following parameters: serum creatinine, age, gender and race. The creatinine assay has been calibrated to be traceable to IDMS. An eGFR <60 mL/min/1.73m2 for >3 months is consistent with chronic kidney disease. Refer to KDOQI guidelines for clinical interpretation. In patients with unstable renal function, e.g. those with acute kidney injury, the eGFR may not accurately reflect actual GFR. Performed By: #### CMP, LIPB, HBA1C #### [facility] [address] [place], [place] [address] LIPID PANEL, BASIC Collected: 12/27/2017 Status: F Source: [place] 8:[address] [facility] [place] REPOSITORY TYPE CODE TESTS RESULT OUT OF REFERENCE UNITS RANGE LAB CHOL <200 mg/dL Cholesterol 142 Result Comment: <200 mg/dL, Desirable 200-239 mg/dL, Borderline high >239 mg/dL, High LAB TRIGLY <150 mg/dL Triglyceride 96 Result Comment: <150 mg/dL, Normal 150-199 mg/dL, Borderline high 200-499 mg/dL, High >499 mg/dL, Very high LAB HDL >39 mg/dL HDL-Cholesterol 61 Result Comment: 40-59 mg/dL, Acceptable >59 mg/dL, High: Negative risk factor for coronary heart disease <40 mg/dL, Low: Positive risk factor for coronary heart disease LAB LDL <100 mg/dL LDL-Cholesterol 62 Result Comment: <100 mg/dL, Optimal 100-129 mg/dL, Near optimal/above optimal 130-159 mg/dL, Borderline high 160-189 mg/dL, High >189 mg/dL, Very high Secondary prevention optimal LDL Cholesterol levels are recommended to be < 70 mg/dL LAB NONHDL <130 mg/dL Non HDL Cholesterol 81 Result Comment: <130 mg/dL, Optimal 130-159 mg/dL, Near optimal/above optimal 160-189 mg/dL, Borderline high 190-219 mg/dL, High >219 mg/dL, Very high Secondary prevention optimal non HDL Cholesterol levels are recommended to be < 100 mg/dL LAB FT hrs Fasting Time 14 LAB VLDL <30 mg/dL VLDL Cholesterol 19 LAB TCHDL <5.10 TC:HDL Ratio 2.33 LAB LDLHDL <2.54 LDL:HDL Ratio 1.02 Result Comment: Reference: 1. National Cholesterol Education Program ATP III Guideline At-A-Glance Quick Desk Reference: National Heart, Lung, and Blood Raymond. National Institutes of Health. 2001: NIH Publication No. 01-3305. 2. An International Atherosclerosis Society position paper: global recommendations for the management of dyslipidemia: executive summary, Atherosclerosis. 2014: 232(2):410-413. Performed By: #### CMP, LIPB, HBA1C #### [facility] [address] [place], [place] [address] HEMOGLOBIN A1C Collected: 12/27/2017 Status: F Source: [place] 8:48 AM [facility] REPOSITORY TYPE CODE TESTS RESULT OUT OF REFERENCE UNITS RANGE LAB HGBA1C 4.3-5.6 % High Hemoglobin A1c 7.0 LAB HBA0 mg/dL Est. Average Glucose 154 Result Comment: eAG: (Estimated average glucose) is a calculated value from HgbA1c and is security representative of the average blood glucose level in the last 2-3 month period. Performed By: #### CMP, LIPB, HBA1C #### [facility] [address] [place], [place] [address] PROGRESS Observed: 12/27/2017 Status: COMPLETED Source: [place] 8:06 AM [facility] REPOSITORY HNO ID: [id number] Author: Milly (Cally) Chandan Service: (none) Author Type: Nurse Practitioner Type: Progress Notes Filed: 12/27/2017 8:55 AM Note Text: 12/27/2017 Patient presents with: 4 Month F/U: DM SUBJECTIVE: This is a 57 year old that is here today for follow up chronic conditions. She states that she is seeing GI for fatty liver and cardiology for a-fib. She is scheduled for mammogram today. DIABETES MELLITUS: Since our last visit she denies excessive thirst or increased frequency of urination, chest pain or dyspnea , numbness, tingling or pain in extremities, new or unusual visual symptoms, lightheadedness/dizziness and bowel changes/loose stools. Patient admits to have low sugar/hypoglycemic reactions two or more times a week, with symptoms of feeling shakey and nausea- last was last night and blood sugar was 89. She states that over the last 4 month it was as low as 70 and as high as 325 when she feels these symptoms. Follows a diabetic diet generally not very much. She did just start a wellness club that hold accountable with weight She is compliant with medication(s) and is tolerating med(s) without any side effects. She reports checking her glucose on a infrequent to not at all basis and she will only check when not feeling well schedule. She states that she will not check more than that and she is aware of the consequences of not knowing. Patient's last HgA1C was Hemoglobin A1C (%) Date Value 05/14/2017 7.9 02/01/2017 8.6 ) Last Ophthalmology exam was more than 12 months ago- pt agrees to schedule, no referral needed Last Podiatry exam was more than 12 months ago- foot exam completed today Influenza vaccine in the fall HTN: Ms. Guerrero indicates that she is feeling well and denies any symptoms referable to elevated blood pressure. Specifically denies headache, chest pain, palpitations, dyspnea. She does admit to BLE edema at the end of the day that goes away by morning. Will consider wearing compression stockings, but admits that she has been tod to in the past as well. Patient denies any side effects of her medication(s) and is compliant with their regimen. She does not check BP's generally. Elli denies regular aerobic exercise, but states that she is more active over the last year watching her grandson then she ever was. She watches her diet for sodium, low fat and low cholesterol most of the time. Last 3 Encounter BP Readings: Date: BP: 12/27/2017 114/70 12/05/2017 142/80 10/03/2017 118/59 PAST MEDICAL HISTORY Diagnosis Date - Anemia - Bipolar affect, depressed (HCC) - Diabetes mellitus - Elevated liver enzymes - Esophageal reflux - GERD (gastroesophageal reflux disease) - Hypertension - Leukocytosis, unspecified - Obstructive sleep apnea (adult) (pediatric) - Personal history of colonic polyps - Urge incontinence 02/01/2017 ALLERGIES Review of patient's allergies indicates no known allergies. MEDICATIONS Current Outpatient Prescriptions: Hydrochlorothiazide 12.5 mg capsule TAKE ONE CAPSULE BY MOUTH DAILY hydroxychloroquine (PLAQUENIL) 200 mg tablet Take by mouth twice daily. nitroglycerin sublingual (NITROQUICK) 0.4 mg SL tablet Dissolve 1 tablet under the tongue as needed. FOR CHEST PAIN. IF NO RELIEF CALL [address] (PROTONIX) 40 mg tablet TAKE ONE TABLET BY MOUTH DAILY ONE-HALF HOUR BEFORE BREAKFAST ON EMPTY stomach FARXIGA 10 mg tab TAKE ONE TABLET BY MOUTH DAILY metFORMIN (GLUCOPHAGE) 500 mg tablet TAKE TWO TABLETS BY MOUTH TWICE DAILY WITH MEALS glimepiride (AMARYL) 4 mg tablet TAKE ONE TABLET BY MOUTH DAILY WITH BREAKFAST metoprolol succinate ER (TOPROL XL) 50 mg 24 hr tablet TAKE ONE TABLET BY MOUTH EVERY DAY Estradiol (ESTRACE) 0.5 mg tablet Take 0.5 mg by mouth once daily. oxybutynin ER (DITROPAN XL) 10 mg 24 hr tablet Take 10 mg by mouth once daily. lithium carbonate ER 450 mg CR tablet Take 2 tablets by mouth twice daily. (Patient taking differently: Take 900 mg by mouth three times daily. ) aspirin, enteric coated (ASPIR-LOW) 81 mg EC tablet Take 1 tablet by mouth once daily. sertraline (ZOLOFT) 100 mg tablet Take 1 tablet by mouth twice daily. No current facility-administered medications for this visit. Medications and allergies reviewed by this provider. SOCIAL HISTORY Social History Marital status: Spouse name: Years of education: Number of children: 3 Social History Main Topics Smoking status: Former Smoker Packs/day: 1.00 Years: 9.00 Quit date: 01/08/1990 Smokeless status: Former User Alcohol use: Yes Comment: extremely rare Drug use: No Sexual activity: No Other Topics Concern Service No Blood Transfusions Yes Seat Belt Yes Self-Exams No REVIEW OF SYSTEMS see HPI OBJECTIVE: BP 114/70 (BP Site: Left Arm, BP Position: Sitting, BP Cuff Size: Large Adult) Pulse 68 Temp 36.4 ?C (97.5 ?F) (Right Tympanic) Resp 16 Wt 118.1 kg (260 lb 6.4 oz) SpO2 98% BMI 43.33 kg/m2. Vital signs reviewed by this provider. PHYSICAL EXAMINATION: General appearance: Well appearing, alert, in no acute distress, well-hydrated, well nourished., Obese Skin: Skin color, texture, turgor normal, no suspicious rashes or lesions Neck: Supple, no adenopathy; thyroid symmetric, normal size, no bruits Lungs: Lungs clear to auscultation. No wheezing, rhonchi, rales Heart: RRR without murmur, gallop, or rubs. No ectopy Extremities: No deformities, edema, skin discoloration, clubbing or cyanosis. Good capillary refill. , Pulses: 2+ Feet: Shoes and socks removed, normal distal pulses, sensitive to 10 gm monofilament, not sensitive to monofilament bilateral great toes, vibratory perception normal, vibratory perception decreased on the right foot, calluses noted bilaterally and skin very dry bilaterally ASSESSMENT/PLAN: 1. Type 2 diabetes mellitus without complication, without long-term current use of insulin (HCC) - ICD9: 250.00, ICD10: E11.9 (primary diagnosis) Poor adherence to plan of care. Need to await lab results. - Continue current medications - Blood glucose monitoring on a once a day schedule - Ophthalmology referral for eval/management of diabetic eye changes - Encouraged regular aerobic exercise and weight loss - Follow up in 3 months, sooner should any other issues arise. - Discussed diabetic education issues of snf diabetic complications, hypoglycemic symptoms, hyperglycemic symptoms, diet, importance of exercise and importance of annual examinations with Opthalmology with patient. - LIPID PANEL BASIC - need to complete labs previously ordered- A1C, CBC, CMP 2. Morbid obesity (HCC) - ICD9: 278.01, ICD10: E66.01 - encouraged to continue weight loss efforts - discussed heathy eating and exercise recommendations 3. Essential hypertension - ICD9: 401.9, ICD10: I10 - good control - Continue current medication(s) - Encouraged dietary sodium restriction/DASH diet - Recommended regular aerobic exercise. - Recommend home blood pressure monitoring, to bring results in on next visit - Discussed need and benefit for weight loss. - Goal of BP <140/90 - Recommended no refined sugar, low refined starch, healthy oil intake (olive oil), healthy protein (fish) along the lines of the Mediterranean diet. 4. Fatty liver - ICD9: 571.8, ICD10: K76.0 - follow with GI as planned - encouraged efforts for weight loss and DM control Milly Hawley CNP PROGRESS Observed: 12/25/2017 Status: COMPLETED Source: [place] 9:[address] [facility] [place] REPOSITORY O ID: [id number] Author: Sandhya Bradford) Russ Service: (none) Author Type: Template Worker Type: Progress Notes Filed: 12/25/2017 9:19 AM Note Text: The patient has been identified by name and date of : YES I have scheduled the patient for an appointment on 12/27/2017. The patient will report to the lab prior to the visit. CBC CMP HgbA1c Mammograms was scheduled following her appointment. PHMA Documentation 12/23/2017 Opts out of [facility] No Appointments Scheduled Scheduled CP Appt DM2 with No MARYAN Record Requested Opthy Appt No DM2 with No Urine Alb Lab Ordered DM2 with No DFE Record Requested BP > 139/89 Declined Mammography Record Requested Sandhya Scott MA PROGRESS Observed: 12/24/2017 Status: COMPLETED Source: [place] 11:46 AM [facility] REPOSITORY HNO ID: [id number] Author: Jamal Schneider Service: (none) Author Type: Physician Type: Progress Notes Filed: 12/25/2017 9:19 AM Note Text: Patient Outreach on 12/23/17 -[facility] SCREENING -HGB A1C Jamal Schneider MD PROGRESS Observed: 12/23/2017 Status: COMPLETED Source: [place] 8:[address] [facility] [place] REPOSITORY HNO ID: [id number] Author: Sandhya Scott Service: (none) Author Type: Template Worker Type: Progress Notes Filed: 12/25/2017 9:19 AM Note Text: PHMA TEAMLET DOCUMENTATION Provider Action/FYI: patient needs appointment and labs, mamm Patient is transferring care [place] Appointment With Milly Hawley Please add DX for DM PSR Action/FYI: Teamlet has identified patient by name and date of . Team: Sandhya Scott MA , Dr. Mcgraw ? Last Office Visit:12/23/2017 Next Office Visit: 12/27/17 With Milly Hawley Last BP/Labs: Blood Pressure: Last 3 Encounter BP Readings: Date: BP: 12/05/2017 142/80 10/03/2017 118/59 05/17/2017 136/82 Lipids: Cholesterol, Total (mg/dL) Date Value 10/16/2016 162 03/06/2016 150 HDL Cholesterol (mg/dL) Date Value 10/16/2016 42 03/06/2016 53 LDL Cholesterol (mg/dL) Date Value 10/16/2016 79 03/06/2016 64 Triglyceride (mg/dL) Date Value 10/16/2016 205 03/06/2016 164 HGB A1C: Lab Results Component Value Date HBA1C 7.9 05/14/2017 HBA1C 8.6 02/01/2017 HBA1C 8.9 10/16/2016 TSH: TSH (uU/mL) Date Value 05/07/2012 3.930 04/15/2012 4.040 ) Care Gap: DM - Needs dilated eye exam - HM overdue HTN Plan: ? Confirm PCP / Transfer Dr. Norris ? Type of appointment needed: ? Consultation Appointments: Labs, HM and Immunization: Diabetic Eye Exam Diabetic Foot Exam Mammogram HgbA1c Please add DX for DM Sandhya Scott MA CNPTOUTREACH Observed: 12/23/2017 Status: COMPLETED Source: [place] 12:00 AM [facility] REPOSITORY Patient Outreach (FAMPWS) ELLI GUERRERO ([id number]) 1960 F Date Time Provider Department 12/23/17 SANDHYA SCOTT (CHRISTIANO) FAMPWS During your visit today, we recorded the following information about you: Sandhya Scott MA 12/25/2017 9:19 AM Signed PHMA TEAMLET DOCUMENTATION Provider Action/FYI: patient needs appointment and labs, mamm Patient is transferring care [place] Appointment With Milly Hawley Please add DX for DM PSR Action/FYI: Teamlet has identified patient by name and date of . Team: Sandhya Scott MA , Dr. Mcgraw ? Last Office Visit:12/23/2017 Next Office Visit: 12/27/17 With Milly Hawley Last BP/Labs: Blood Pressure: Last 3 Encounter BP Readings: Date: BP: 12/05/2017 142/80 10/03/2017 118/59 05/17/2017 136/82 Lipids: Cholesterol, Total (mg/dL) Date Value 10/16/2016 162 03/06/2016 150 HDL Cholesterol (mg/dL) Date Value 10/16/2016 42 03/06/2016 53 LDL Cholesterol (mg/dL) Date Value 10/16/2016 79 03/06/2016 64 Triglyceride (mg/dL) Date Value 10/16/2016 205 03/06/2016 164 HGB A1C: Lab Results Component Value Date HBA1C 7.9 05/14/2017 HBA1C 8.6 02/01/2017 HBA1C 8.9 10/16/2016 TSH: TSH (uU/mL) Date Value 05/07/2012 3.930 04/15/2012 4.040 ) Care Gap: DM - Needs dilated eye exam - HM overdue HTN Plan: ? Confirm PCP / Transfer Dr. Norris ? Type of appointment needed: ? Consultation Appointments: Labs, HM and Immunization: Diabetic Eye Exam Diabetic Foot Exam Mammogram HgbA1c Please add DX for DM CHRISTIANO Aquino MD 12/25/2017 9:19 AM Signed Patient Outreach on 12/23/17 -[facility] SCREENING -HGB A1C MD Sandhya Reynolds MA 12/25/2017 9:19 AM Signed The patient has been identified by name and date of : YES I have scheduled the patient for an appointment on 12/27/2017. The patient will report to the lab prior to the visit. CBC CMP HgbA1c Mammograms was scheduled following her appointment. PHIL Documentation 12/23/2017 Opts out of [facility] No Appointments Scheduled Scheduled CP Appt DM2 with No MARYAN Record Requested Opthy Appt No DM2 with No Urine Alb Lab Ordered DM2 with No DFE Record Requested BP ANDgt; 139/89 Declined Mammography Record Requested Sandhya Scott MA Allergies As of Date: 12/23/2017 (No Known Allergies) Date Reviewed: 12/05/2017 Reviewed by: Romy Brewer MA - Fully Assessed Reason for Visit: PHMA/Care Gap Outreach [3605] Primary Visit Diagnosis:Encounter for special screening examination for neoplasm of breast [Z12.31] Other Visit Diagnosis:Type 2 diabetes mellitus without complication, without long-term current use of insulin (HCC) [E11.9] Order(s):[facility] SCREENING [[id number]] Order #: [id number] FUTURE HGB A1C [[id number]] Order #: [id number] FUTURE Prescriptions as of 12/23/2017 Sig: HYDROCHLOROTHIAZIDE 12.5 MG C* TAKE ONE CAPSULE BY MOUTH PRICILA* HYDROXYCHLOROQUINE 200 MG TAB* Take by mouth twice daily. NITROGLYCERIN 0.4 MG SUBLINGU* Dissolve 1 tablet under the t* PANTOPRAZOLE 40 MG TABLET,DEL* TAKE ONE TABLET BY MOUTH LISA* FARXIGA 10 MG TABLET TAKE ONE TABLET BY MOUTH DAILY METFORMIN 500 MG TABLET TAKE TWO TABLETS BY MOUTH TWI* GLIMEPIRIDE 4 MG TABLET TAKE ONE TABLET BY MOUTH LISA* METOPROLOL SUCCINATE ER 50 MG* TAKE ONE TABLET BY MOUTH EVER* ESTRADIOL 0.5 MG TABLET Take 0.5 mg by mouth once pricila* OXYBUTYNIN CHLORIDE ER 10 MG * Take 10 mg by mouth once lisa* LITHIUM CARBONATE ER 450 MG T* Take 2 tablets by mouth twice* ASPIRIN 81 MG TABLET,DELAYED * Take 1 tablet by mouth once d* SERTRALINE 100 MG TABLET Take 1 tablet by mouth twice * Problem List As Of Date 12/23/2017 Noted Resolved Type 2 diabetes mellitus without complication (*INVALID FOR* Hypertension [I10] INVALID FOR* Bipolar affective disorder [F31.9] INVALID FOR* More... Morbid obesity [E66.01] INVALID FOR* Fatty liver [K76.0] INVALID FOR* Paroxysmal atrial fibrillation [I48.0] INVALID FOR* History of colonic polyps [Z86.010] INVALID FOR* Obstructive sleep apnea (adult) (pediatric) [G4*INVALID FOR* GERD (gastroesophageal reflux disease) [K21.9] INVALID FOR* Urge incontinence [N39.41] INVALID FOR* Positive MATY (antinuclear antibody) [R76.8] INVALID FOR* More... Follow-up and Disposition History Recorded Encounter Status:Closed by SANDHYA SCOTT on 12/25/17 PROGRESS Observed: 12/05/2017 Status: COMPLETED Source: [place] 3:[address] [facility] [place] REPOSITORY HNO ID: [id number] Author: Beka Benavides Service: (none) Author Type: Physician Type: Progress Notes Filed: 12/05/2017 4:02 PM Note Text: Elli Guerrero is a 57 year old female who presents for Elevated Liver Enzymes and Abnormal MRI. HPI: She has lab results and MRI result scanned into her chart. She complains of a white discharge from rectum. She also mentions diarrhea, constipation, nausea, fatigue, loss of appetite, itching, and rash. Record Review: [facility] records reviewed PAST MEDICAL HISTORY Diagnosis Date - Anemia - Bipolar affect, depressed (HCC) - Diabetes mellitus - Elevated liver enzymes - Esophageal reflux - GERD (gastroesophageal reflux disease) - Hypertension - Leukocytosis, unspecified - Obstructive sleep apnea (adult) (pediatric) - Personal history of colonic polyps - Urge incontinence 02/01/2017 PAST SURGICAL HISTORY Procedure Laterality Date - APPENDECTOMY 1976 - COLONOSCOP W/ OR W/O [facility] SPEC 02/13/2017 Colonoscopy mac - COLONOSCOPY 04/17/2011 X6. TA in 2008 - EGD W/O OR W/BRUSH/WASH 06/09/14 EGD - EGD W/O OR W/BRUSH/WASH 02/13/2017 EGD mac - FOOT RIGHT OP SURGERY 1992 rebuilt bottom of right foot - HEART CATHETERIZATION - LIGATE FALLOPIAN TUBE 1982 - REMOVAL OF GALLBLADDER 1977 - SCREENING COLONOSCOPY, NOT HIGH RISK PT 04/17/2011 next 04/17/16, Dr. Dimitris Staton Brule - SCREENING COLONSCOPY NOT HIGH RISK - TOTAL ABDOM HYSTERECTOMY Hysterectomy, LEONILA - TOTAL HIP REPLACEMENT bilateral 2007 right hip, 2010 lef t hip Allergies: ALLERGIES No Known Allergies Medications: Hydrochlorothiazide 12.5 mg capsule TAKE ONE CAPSULE BY MOUTH DAILY hydroxychloroquine (PLAQUENIL) 200 mg tablet Take by mouth twice daily. nitroglycerin sublingual (NITROQUICK) 0.4 mg SL tablet Dissolve 1 tablet under the tongue as needed. FOR CHEST PAIN. IF NO RELIEF CALL [address] (PROTONIX) 40 mg tablet TAKE ONE TABLET BY MOUTH DAILY ONE-HALF HOUR BEFORE BREAKFAST ON EMPTY stomach FARXIGA 10 mg tab TAKE ONE TABLET BY MOUTH DAILY metFORMIN (GLUCOPHAGE) 500 mg tablet TAKE TWO TABLETS BY MOUTH TWICE DAILY WITH MEALS glimepiride (AMARYL) 4 mg tablet TAKE ONE TABLET BY MOUTH DAILY WITH BREAKFAST metoprolol succinate ER (TOPROL XL) 50 mg 24 hr tablet TAKE ONE TABLET BY MOUTH EVERY DAY Estradiol (ESTRACE) 0.5 mg tablet Take 0.5 mg by mouth once daily. oxybutynin ER (DITROPAN XL) 10 mg 24 hr tablet Take 10 mg by mouth once daily. lithium carbonate ER 450 mg CR tablet Take 2 tablets by mouth twice daily. aspirin, enteric coated (ASPIR-LOW) 81 mg EC tablet Take 1 tablet by mouth once daily. sertraline (ZOLOFT) 100 mg tablet Take 1 tablet by mouth twice daily. FAMILY HISTORY Problem Relation Age of Onset - Diabetes Mother - Hypertension Mother - Cancer Father lung cancer - Diabetes Father - Heart Father CA x 2 - Hypertension Father - Diabetes Maternal Grandmother - Diabetes Maternal Grandfather - Diabetes Paternal Grandmother - Hypertension Paternal Grandmother - Diabetes Paternal Grandfather - Heart Paternal Grandfather [place] Employer And Job Title: None on file Years Of Education Completed: Not specified Marital Status: with 3 children Social History Substance Use Topics - Smoking status: Former Smoker Packs/day: 1.00 Years: 9.00 Quit date: 01/08/2000 - Smokeless tobacco: Former User Quit date: 11/25/1999 - Alcohol use Yes Comment: extremely rare Review of Systems: Review of Systems Constitutional: Positive for appetite change, fatigue and unexpected weight change. Cardiovascular: Positive for leg swelling. Gastrointestinal: Positive for anal bleeding, constipation, diarrhea and nausea. Neurological: Positive for dizziness. Hematological: Bruises/bleeds easily. All other systems reviewed and are negative. Where do you currently reside? Independently Are you taking any blood thinners? No Physical Examination: Physical Exam Constitutional: She is oriented to person, place, and time and well-developed, well-nourished, and in no distress. Morbidly obese HENT: Head: Normocephalic and atraumatic. Eyes: No scleral icterus. Neck: Neck supple. Cardiovascular: Normal rate, regular rhythm and normal heart sounds. Pulmonary/Chest: Effort normal and breath sounds normal. Abdominal: Soft. Bowel sounds are normal. Musculoskeletal: She exhibits no edema. Neurological: She is alert and oriented to person, place, and time. Gait normal. Skin: Skin is warm and dry. Psychiatric: Mood, memory, affect and judgment normal. Assessment/Plan: Elli was seen today for elevated liver enzymes and abnormal mri. Diagnoses and all orders for this visit: Gastroesophageal reflux disease, esophagitis presence not specified Fatty liver - CBC + DIFF; Future - COMP METABOLIC PANEL; Future Paroxysmal atrial fibrillation (HCC) Obstructive sleep apnea (adult) (pediatric) Type 2 diabetes mellitus without complication, without long- term current use of insulin (HCC) Abnormal results of liver function studies - CBC + DIFF; Future - COMP METABOLIC PANEL; Future This note was generated using FittingRoom voice recognition system, and there may be some incorrect words, spellings, and punctuation that were not noted in checking the note before saving. Romy Brewer CHRISTIANO CNOV Observed: 12/05/2017 Status: COMPLETED Source: [place] 2:30 PM [facility] REPOSITORY Office Visit ([facility]) ELLI GUERRERO ([id number]) 1960 F Date Time Provider Department 12/05/17 2:30 PM BEKA BENAVIDES [facility] During your visit today, we recorded the following information about you: Pulse Respiration Blood pressure Weight 64/minute 14/minute 142/80 118.4 kg Height 1.651 m Beka Benavides MD 12/05/2017 4:02 PM Signed Elli Vargas Cesar is a 57 year old female who presents for Elevated Liver Enzymes and Abnormal MRI. HPI: She has lab results and MRI result scanned into her chart. She complains of a white discharge from rectum. She also mentions diarrhea, constipation, nausea, fatigue, loss of appetite, itching, and rash. Record Review: [facility] records reviewed PAST MEDICAL HISTORY Diagnosis Date - Anemia - Bipolar affect, depressed (HCC) - Diabetes mellitus - Elevated liver enzymes - Esophageal reflux - GERD (gastroesophageal reflux disease) - Hypertension - Leukocytosis, unspecified - Obstructive sleep apnea (adult) (pediatric) - Personal history of colonic polyps - Urge incontinence 02/01/2017 PAST SURGICAL HISTORY Procedure Laterality Date - APPENDECTOMY 1976 - COLONOSCOP W/ OR W/O [facility] SPEC 02/13/2017 Colonoscopy mac - COLONOSCOPY 04/17/2011 X6. TA in 2008 - EGD W/O OR W/BRUSH/WASH 06/09/14 EGD - EGD W/O OR W/BRUSH/WASH 02/13/2017 EGD mac - FOOT RIGHT OP SURGERY 1992 rebuilt bottom of right foot - HEART CATHETERIZATION - LIGATE FALLOPIAN TUBE 1982 - REMOVAL OF GALLBLADDER 1977 - SCREENING COLONOSCOPY, NOT HIGH RISK PT 04/17/2011 next 04/17/16, Dr. Dimitris Staton Brule - SCREENING COLONSCOPY NOT HIGH RISK - TOTAL ABDOM HYSTERECTOMY Hysterectomy, LEONILA - TOTAL HIP REPLACEMENT bilateral 2008 right hip, 2010 lef t hip Allergies: ALLERGIES No Known Allergies Medications: Hydrochlorothiazide 12.5 mg capsule TAKE ONE CAPSULE BY MOUTH DAILY hydroxychloroquine (PLAQUENIL) 200 mg tablet Take by mouth twice daily. nitroglycerin sublingual (NITROQUICK) 0.4 mg SL tablet Dissolve 1 tablet under the tongue as needed. FOR CHEST PAIN. IF NO RELIEF CALL [address] (PROTONIX) 40 mg tablet TAKE ONE TABLET BY MOUTH DAILY ONE-HALF HOUR BEFORE BREAKFAST ON EMPTY stomach FARXIGA 10 mg tab TAKE ONE TABLET BY MOUTH DAILY metFORMIN (GLUCOPHAGE) 500 mg tablet TAKE TWO TABLETS BY MOUTH TWICE DAILY WITH MEALS glimepiride (AMARYL) 4 mg tablet TAKE ONE TABLET BY MOUTH DAILY WITH BREAKFAST metoprolol succinate ER (TOPROL XL) 50 mg 24 hr tablet TAKE ONE TABLET BY MOUTH EVERY DAY Estradiol (ESTRACE) 0.5 mg tablet Take 0.5 mg by mouth once daily. oxybutynin ER (DITROPAN XL) 10 mg 24 hr tablet Take 10 mg by mouth once daily. lithium carbonate ER 450 mg CR tablet Take 2 tablets by mouth twice daily. aspirin, enteric coated (ASPIR-LOW) 81 mg EC tablet Take 1 tablet by mouth once daily. sertraline (ZOLOFT) 100 mg tablet Take 1 tablet by mouth twice daily. FAMILY HISTORY Problem Relation Age of Onset - Diabetes Mother - Hypertension Mother - Cancer Father lung cancer - Diabetes Father - Heart Father [place] x 2 - Hypertension Father - Diabetes Maternal Grandmother - Diabetes Maternal Grandfather - Diabetes Paternal Grandmother - Hypertension Paternal Grandmother - Diabetes Paternal Grandfather - Heart Paternal Grandfather [place] Employer And Job Title: None on file Years Of Education Completed: Not specified Marital Status: with 3 children Social History Substance Use Topics - Smoking status: Former Smoker Packs/day: 1.00 Years: 9.00 Quit date: 01/08/2000 - Smokeless tobacco: Former User Quit date: 11/25/1999 - Alcohol use Yes Comment: extremely rare Review of Systems: Review of Systems Constitutional: Positive for appetite change, fatigue and unexpected weight change. Cardiovascular: Positive for leg swelling. Gastrointestinal: Positive for anal bleeding, constipation, diarrhea and nausea. Neurological: Positive for dizziness. Hematological: Bruises/bleeds easily. All other systems reviewed and are negative. Where do you currently reside? Independently Are you taking any blood thinners? No Physical Examination: Physical Exam Constitutional: She is oriented to person, place, and time and well-developed, well-nourished, and in no distress. Morbidly obese HENT: Head: Normocephalic and atraumatic. Eyes: No scleral icterus. Neck: Neck supple. Cardiovascular: Normal rate, regular rhythm and normal heart sounds. Pulmonary/Chest: Effort normal and breath sounds normal. Abdominal: Soft. Bowel sounds are normal. Musculoskeletal: She exhibits no edema. Neurological: She is alert and oriented to person, place, and time. Gait normal. Skin: Skin is warm and dry. Psychiatric: Mood, memory, affect and judgment normal. Assessment/Plan: Elli was seen today for elevated liver enzymes and abnormal mri. Diagnoses and all orders for this visit: Gastroesophageal reflux disease, esophagitis presence not specified Fatty liver - CBC + DIFF; Future - COMP METABOLIC PANEL; Future Paroxysmal atrial fibrillation (HCC) Obstructive sleep apnea (adult) (pediatric) Type 2 diabetes mellitus without complication, without long- term current use of insulin (HCC) Abnormal results of liver function studies - CBC + DIFF; Future - COMP METABOLIC PANEL; Future This note was generated using FittingRoom voice recognition system, and there may be some incorrect words, spellings, and punctuation that were not noted in checking the note before saving. Romy Brewer MA Referring Provider: JAMAL SCHNEIDER [[id number]] Allergies As of Date: 12/05/2017 (No Known Allergies) Date Reviewed: 12/05/2017 Reviewed by: Romy Brewer MA - Fully Assessed Reason for Visit: Elevated Liver Enzymes [Other] Abnormal MRI [Other] Primary Visit Diagnosis:Gastroesophageal reflux disease, esophagitis presence not specified [K21.9] Other Visit Diagnoses:Fatty liver [K76.0] Paroxysmal atrial fibrillation (HCC) [I48.0] Obstructive sleep apnea (adult) (pediatric) [G47.33] Type 2 diabetes mellitus without complication, without long-term current use of insulin (HCC) [E11.9] Abnormal results of liver function studies [R94.5] Constitutional obesity [E66.8] Order(s):CBC + DIFF [SQCBCDIF] Order #: [id number] FUTURE COMP METABOLIC PANEL [SQCMP] Order #: [id number] FUTURE Prescriptions as of 12/05/2017 Sig: HYDROCHLOROTHIAZIDE 12.5 MG C* TAKE ONE CAPSULE BY MOUTH PRICILA* HYDROXYCHLOROQUINE 200 MG TAB* Take by mouth twice daily. NITROGLYCERIN 0.4 MG SUBLINGU* Dissolve 1 tablet under the t* PANTOPRAZOLE 40 MG TABLET,DEL* TAKE ONE TABLET BY MOUTH LISA* FARXIGA 10 MG TABLET TAKE ONE TABLET BY MOUTH DAILY METFORMIN 500 MG TABLET TAKE TWO TABLETS BY MOUTH TWI* GLIMEPIRIDE 4 MG TABLET TAKE ONE TABLET BY MOUTH LISA* METOPROLOL SUCCINATE ER 50 MG* TAKE ONE TABLET BY MOUTH EVER* ESTRADIOL 0.5 MG TABLET Take 0.5 mg by mouth once pricila* OXYBUTYNIN CHLORIDE ER 10 MG * Take 10 mg by mouth once lisa* LITHIUM CARBONATE ER 450 MG T* Take 2 tablets by mouth twice* ASPIRIN 81 MG TABLET,DELAYED * Take 1 tablet by mouth once d* SERTRALINE 100 MG TABLET Take 1 tablet by mouth twice * Problem List As Of Date 12/05/2017 Noted Resolved Type 2 diabetes mellitus without complication (*INVALID FOR* Hypertension [I10] INVALID FOR* Bipolar affective disorder [F31.9] INVALID FOR* More... Morbid obesity [E66.01] INVALID FOR* Fatty liver [K76.0] INVALID FOR* Paroxysmal atrial fibrillation [I48.0] INVALID FOR* History of colonic polyps [Z86.010] INVALID FOR* Obstructive sleep apnea (adult) (pediatric) [G4*INVALID FOR* GERD (gastroesophageal reflux disease) [K21.9] INVALID FOR* Urge incontinence [N39.41] INVALID FOR* Positive MATY (antinuclear antibody) [R76.8] INVALID FOR* More... Disposition: Return in about 4 months (around 04/04/2018). Follow-up and Disposition History Recorded Encounter Status:Closed by BEKA BENAVIDES MD on 12/05/17 ALLERGIES ALLERGIES DATE TYPE / CODE NAME / CODE REACTION SEVERITY SOURCE 10/20/2018 Drug No Known Unknown Shari Allergy/643199205(S Allergies/F0019 [facility]) 91368(RXNORM) Hospital Repository NG/111768978(SNOMED NO KNOWN [facility]) ALLERGIES [facility] Repository Drug NO KNOWN Olson Class/313723091(SNO ALLERGIES Clinic Other MED CT) [place] Repository Miscellaneous No Known Drug Moderate Doe Pomerene Allergy/862510813(S Allergies ([facility]) Modifier) Hospital (Qualifier Repository Value) ENCOUNTERS ENCOUNTERS ADMIT/DISCHARGE ACCOUNT NUMBER ADMITTING ENCOUNTER LOCATION SOURCE CLASS 10/30/2018/10/30/20 [id number] CLAR[place], Emergency Buildin[address] [place] [address] Room: ERBed: [facility] Repository 10/28/2018 [id number] CHAD, Ambulatory [facility] KATHLEEN BARRON [facility] Repository 10/20/2018/10/28/20 [id number] [facility], Inpatient [place] 18 MELISSA Encounter Clinic Other [place] Repository 10/20/2018/10/28/20 [id number] [facility], Inpatient [facility] 18 [facility] MEDICAL Repository NOCONABuild nRoom: 9122Bed: 10/20/2018 [id number] Ambulatory RBuilding:[facility] Repository 10/20/2018/10/20/20 [id number] Emergency Shari Shari 18 [facility] ding:ED Repository 10/19/2018/10/20/20 [id number] LEONCIO, Emergency Buildin[address] [place] [address] JOHN Room: ERBed: [facility] Repository 10/13/2018/10/17/20 [id number] MUWILIA, Inpatient [place] 18 FARID ARRON Encounter Clinic Other [place] Repository 10/13/2018/10/17/20 [id number] MUAKKASSA, Inpatient [facility] 18 FARID F Encounter [facility] MEDICAL Repository NOCONABuildi ng:NSICRoom: 3203Bed: 10/13/2018/10/13/20 [id number] CLARENCE, Emergency [facility]in[address] [place] [address] Room: ERBed: [facility] Repository 10/09/2018/10/09/20 [id number] Ambulatory [address] Main [place] Repository 10/09/2018/10/10/20 [id number] Ambulatory [address] Repository 10/06/2018/10/06/20 [id number] Ambulatory [address] Main [place] Repository 09/05/2018/09/05/20 [id number] HLIVKO, Ambulatory Doe Pomerene 18 [facility] Repository 08/20/2018 [id number] Ambulatory [facility] ding:MTLAB Repository 08/08/2018/08/08/20 [id number] HLIVKO, Ambulatory Doe Pomerene 18 [facility] Repository 07/24/2018/07/24/20 [id number] HLIVKO, Ambulatory Doe Pomerene 18 [facility] Repository 07/08/2018/07/09/20 [id number] Ambulatory [address] Repository 07/07/2018/07/07/20 [id number] Ambulatory [address] Repository 06/05/2018/06/05/20 [id number] CARLOTA, Ambulatory Doe Pomerene 18 [facility] Repository 05/02/2018 [id number] Ambulatory [facility] ding:LAB.FUT Repository URE 04/11/2018/04/11/20 [id number] Ambulatory [address] Repository 04/10/2018/04/10/20 [id number] Ambulatory [address] Other [place] Repository 04/10/2018/04/10/20 [id number] Ambulatory [address] MEDICAL Repository CENTERBuildi ng:CAGWS 04/08/2018/04/08/20 [id number] Ambulatory [address] Main [place] Repository 04/07/2018/04/07/20 [id number] Ambulatory [address] Main [place] Repository 04/03/2018/04/03/20 [id number] Ambulatory [address] Main [place] Repository 04/03/2018/04/04/20 [id number] Ambulatory [address] Main [place] Repository 04/01/2018/04/01/20 [id number] Ambulatory [address] Repository 03/17/2018 [id number] Ambulatory [facility] ding:MTLAB Repository 02/26/2018/02/27/20 [id number] WILLIAM WYNN Emergency Buildin Doe Butler [facility] Room: ERBed: [facility] Repository 12/27/2017/12/27/19 [id number] Ambulatory [address] Repository 12/27/2017/12/27/19 [id number] Ambulatory [address] Repository 12/27/2017/12/27/19 [id number] Ambulatory [address] Repository 12/05/2017/12/05/19 [id number] Ambulatory [address] Repository PAYERS PAYERS ENCOUNTER GUARANTOR PAYER SUBSCRIBER SOURCE 10/30/2018 ELLI Vargas Primary CHRISTINA Butler MARTINETDOB: [facility] cy Number: [id number] [facility] [place] [id number] [address], Date:Plan Name:[address] [address]Kwp: [id number] () 10/28/2018 ELLI Vargas Primary CHRISTINA Butler CESARDOB: Insurance:[facility] MARYVALEB: [facility] [id number] REPolicy Number: [id number] [facility] [address] [id number] 1 [facility] Repository [address] [place] [address], Date:Plan Name:[address] [address]Svf: Ar [id number] (HP) 10/20/2018 ELLI Vargas Primary ELLI Millan [facility]: Insurance:[facility]: [facility] System cy Number: [id number] [facility] [place] [id number] [address] [place] [address], Date: [place] [address]Hpz: (HP) 10/20/2018 ELLI Vargas Primary Insurance:SELF ELLI Vargas [facility] FEIKERTDOB: [facility] Number: Effective [id number] Repository [facility] [address] Date:2018-10-[address] [facility] [address] [place] [address], [id number] Name:[address] [place] [address]Xts: [place] [address]Wyg: (HP)Tel: [phone]) (HP) (WP) [phone] (WP) 10/20/2018 CHRISTINA Peggy Primary CHRISTINA Woods Shari [id number] TR Insurance[facility]: [address], cy Number: [id number] [facility] [address]Goi: [id number] Repository Date:6524-99-32WD BOX () [address] [place] [address]VW: 10/20/2018 Secondary NOT GIVENUNK Shari Insurance:SELF PAY [facility] Number: Effective Repository Date:2018-10-20 10/19/2018 ELLI M Primary CHRISTINA Butler [facility]PITALGailDOB: Insurance:[facility]: [facility] [id number] Number: [address] Repository [address] [place] [address], [id number] [address]Rbr: Date:Plan Name:A2 Ar [id number] () 10/13/2018 ELLI M Primary CHRISTINA Ramirezron [facility]TD[facility]: Insurance:[facility]: Health System cy Number: [id number] [place]ository [place] [address] [id number] [address] [place] [address], Date: [place] [address]Wcl: () 10/13/2018 ELLI M Primary CHRISTINA Butler FEIKERTDOB: Insurance:[employer]ARE FEIKERTDOB: [facility] [id number] [facility] [id number] [facility] [address] Number: [address] Repository [address] [place] [address], [id number] [address] [place] [address]Drh: Date:Plan Name:[facility] [id number] () 09/05/2018 ELLI Vargas Primary CHRISTINA Butler FEIKERTDOB: Insurance:AULTCAREPoli FEIKERTDOB: [facility] cy Number: [id number] [facility] [address] RD [id number] 1 [facility] Repository [address] [place] [address], Date:Plan Name:[address] [address]Lkx: [id number] () 08/20/2018 CHRISTINA Woods Primary CHRISTINA Mccarthy [id number] TR Insurance:AULTCAREPoli FEIKERTDOB: [address], cy Number: [id number] [facility] [address]Urk: [id number] Repository Date:8779-96-36SL BOX () [address] [place] [address]RE: 08/20/2018 Secondary NOT GIVENUNK [place] Insurance:SELF PAY [facility] Number: Effective Repository Date:2018-08-20 08/08/2018 ELLI Vargas Primary CHRISTINA Butler FEIZANETDOB: Insurance:[employer]ARE FEIKERTDOB: [facility] [id number] [facility] [id number] [facility] TR Number: [address] Repository [address] [place] [address], [id number] [address] [place] [address]Tmm: Date:Plan Name:[facility] [id number] () 07/24/2018 ELLI Vargas Primary CHRISTINA FARLEYTDOB: Insurance:[employer]TCARE FEIKERTDOB: [facility] [id number] Hospital TR Number: [address] Repository [address] [place] [address], [id number] [address] [place] [address]Rer: Date:Plan Name:A2 Ar [id number] () 06/05/2018 ELLI Vargas Primary CHRISTINA Ortizrolan [facility] HOSPITALKERTDOB: Insurance:[facility]ITALTD[facility]: [facility] [id number] [facility] [id number] Hospital TR Number: [address] Repository [address] [place] [address], [id number] [address] [place] [address] Date:Plan Name:A2 Ar [id number]: () 05/02/2018 CHRISTINA A Primary CHRISTINA Woods Shari [id number] TR Insurance:AUCAREPoli FEIKERTDOB: [address] cy Number: [id number] View Regional Medical Center [address]Rxt: [id number] Repository Date:[id number] BOX ) [address] [place] [address]KZ: 05/02/2018 Secondary NOT GIVENUNK [place] Insurance:SELF PAY [facility] Number: Effective Repository Date:2018-04-07 04/10/2018 ELLI Vargas Primary CHRISTINA Millan [facility] HospitalTD[facility]: [facility]ITALPolLexington [facility]rin[facility] HospitalB: [facility] [id number] cy Number: [id number] [address]ository [address] [id number] [address] [place] [address], Date: [place] [address]Ewq: () 03/17/2018 Christina A Primary Christina Woods Marionanju [id number] Insurance:AULTCAREPoli FeikertDOB: [facility] cy Number: [id number], [id number] [place]ository [place] [address]Mci: Date:7409-13-50EC [address] [place] [address] () [phone]: 03/17/2018 Secondary NOT GIVENUNK Shari Insurance:SELF [facility] Effective Repository Date:2018-03-17 02/26/2018 ELLI Vargas [facility] Doe Shashankmaritzarolan FEIKERTDOB: [facility] [id number] [facility] [id number] [facility] TR Number: [address] Repository [address] [place] [address], [id number] [address] [place] [address] Date:Plan Name:A2 Ar [id number]: ()
== END 2018-10-20 17:32 | disposition short-term general hospital (02) ==
LOC: ED 14:46
PROVIDERS: Emergency Provider Emergency Medicine; Family Provider Family Medicine; PCP Family Medicine
DX: I60.9 Nontraumatic subarachnoid hemorrhage, unspecified (principal); I62.00 Nontraumatic subdural hemorrhage, unspecified; I62.1 Nontraumatic extradural hemorrhage; I63.9 Cerebral infarction, unspecified; K21.9 Gastro-esophageal reflux disease without esophagitis; E11.9 Type 2 diabetes mellitus without complications; I10 Essential (primary) hypertension; Z79.84 Long term (current) use of oral hypoglycemic drugs; Z79.899 Other long term (current) drug therapy
CPT/HCPCS: 51702; 70450; 80048; 85025; 85610; 85730; 96361; 96374; 99285; J7040; A4216; J2405

== ENCOUNTER 2018-11-24 10:20 | Inpatient (IN) | payer OTHER, SELFPAY ==
[2018-11-24] VITALS (10 sets, daily range): BP systolic 93–113; BP diastolic 43–61; PULSE 56–79; RESP 16–20; TEMP 36.5–36.9; O2SAT 94–99; BMI 36.9; BMI 37.2
--- NOTE | 2018-11-24 10:48 | EKG12_ITS ---
Test Reason : Blood Pressure : / mmHG Vent. Rate : 057 BPM Atrial Rate : 057 BPM P-R Int : 162 ms QRS Dur : 104 ms QT Int : 464 ms P-R-T Axes : 058 -33 210 degrees QTc Int : 451 ms Sinus bradycardia Left axis deviation ST & T wave abnormality, consider inferior ischemia ST & T wave abnormality, consider anterolateral ischemia Abnormal ECG Confirmed by BHARATH BARRON, LUKE ([id number]), news videotape editor JOSE J CARLSON ([id number]) on 11/27/2018 1:29:53 PM Referred By: ERMA Confirmed By:LUKE SINHA MD
[2018-11-24 11:17] LABS: Absolute Lymphocyte Count 0.71 X10^3/ul (0.83-4.51); Absolute Neutrophil Count 3.1 X10^3/uL (2.0-7.7); Eosinophil# 0.07 X10^3/uL; Eosinophils% 1.7 % (0-5); Hemoglobin 11.2 g/dl (12.0-15.0); Lymphocyte # 0.71 X10^3/ul (4.0); Lymphocyte % 17.1 % (19-41); Mean Corp Hgb Conc 33.9 g/gl (32-36); Mean Corpuscular Hgb 29.1 pg (27.0-32.0); Mean Corpuscular Volume 85.7 fL (81-99); Mean Platelet Vol. 9.9 fl (6.2-12.0); Monocyte% 7.2 % (0-10); Neutrophil # 3.08 X10^3/uL (2.7-7.7); POSITIVE COUNT NO; POSITIVE DIFFERENTIAL NO; POSITIVE MORPHOLOGY NO; Platelet Count 93 K/mm3 (150-450); RBC Distribution Width CV 15.7 % (11.6-14.6); RBC Distribution Width SD 48.8 fl (35.1-43.9); Red Blood Count 3.85 M/mm3 (4.2-5.4); White Blood Count 4.2 K/mm3 (4.4-11.0)
[2018-11-24 11:52] LABS: Anion Gap 10 (5-15); BUN 8 mg/dL (7-18); BUN/Creat Ratio 8.3 RATIO (10-20); Calcium,Total 9.4 mg/dL (8.5-10.1); Chloride 100 mmol/L (98-107); Creatinine, Serum 0.97 mg/dL (0.55-1.02); EST Glomerular Filtration Rate 63 mL/min (>60); Est Glom Filt Rate - Afr Amer 76 mL/min (>60); Estimated Creatinine Clearance 56.19 ml/min; Glucose 221 mg/dL (74-106); Magnesium 2.1 mg/dL (1.6-2.6); Potassium 2.5 mmol/L (3.5-5.1); Sodium Level 139 mmol/L (136-145)
--- NOTE | 2018-11-24 12:23 | HP.PCM_ITS ---
History of Present Illness Date of Admission: 11/24/18 Chief Complaint: hypokalemia The patient is a 58 year old F medical history of hypertension, GERD, bipolar disorder, morbid obesity and diabetes mellitus as well as recent intracranial bleed. She was admitted through the ED with a complaint of hypokalemia. Patient states she had blood work done by home health nurse about 3 days ago. PCP called her today with the results and told her to come immediately to the ED as her potassium was low. She had no complaints and denied any lightheadedness or dizziness or palpitations, any chest pain, abdominal pain, diarrhea vomiting. Arrival in the ED, potassium was found to be 2.5. EKG showed mild ST depre ssion in the inferior and hugo-lateral leads. She had no chest pain whatsoever, She is being admitted to be managed for hypokalemia. [] Past Medical History Past Medical History (Chronic Problems): Chronic Problems Hypertension (Chronic) GERD (gastroesophageal reflux disease) (Chronic) Bipolar disorder (Chronic) Diabetes mellitus, type II (Chronic) Morbid obesity with BMI of 45.0-49.9, adult (Chronic) Allergies No Known Allergies Allergy (Verified 11/24/18 10:25) Home Medications: Ambulatory Orders Medication Instructions Recorded Glimepiride 4 mg PO DAILY 03/27/15 Hydrochlorothiazide [Hctz] 12.5 mg PO DAILY 03/27/15 Metformin HCl [Glucophage] 500 mg PO BIDCM 03/27/15 Metoprolol Tartrate 12.5 mg PO BID 03/27/15 Nitrostat 0.4 mg SL PRN PRN 03/27/15 Protonix 40 mg PO DAILY 03/27/15 Zoloft 150 mg PO DAILY 03/27/15 Dapagliflozin Propanediol [Farxiga] 10 mg PO DAILY 10/20/18 Ferrous Gluconate 324 mg PO BID 10/20/18 Hydroxychloroquine [Plaquenil] 200 mg PO BIDCM 10/20/18 [place] Carbonate [[place] 1 tab PO DAILY 11/24/18 Carbonate ER] [place] Carbonate [[place] 2 tab PO QHS 11/24/18 Carbonate ER] Ondansetron HCl [Zofran] 4 mg PO Q6H PRN PRN 11/24/18 Surgical History: - - Right foot surgery, hysterectomy, appendectomy, cholecystectomy, bilateral tubal ligation, bilateral total hip repair. 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 Lives: With Family Smoking Status: Former smoker Tobacco Use: Non-smoker Alcohol: Occasional Drugs: None - *Family History Maternal History Items: Diabetes, Hypertension Paternal History Items: Cancer - Father with lung cancer, prior history of tobacco use., Diabetes, Heart Disease, Hypertension Review of Systems Constitutional: Denies: Chills, Fever, Malaise, Weakness, Weight Change HEENT: Denies: Head Aches, Sinus Congestion, Sinus Drainage Cardiovascular: Denies: Chest Pain, Palpitations Respiratory: Denies: Cough, Shortness of Breath, Shortness of breath at rest, Sputum production Gastrointestinal: Denies: Abdominal Pain, Nausea, Vomiting Genitourinary: Denies: Dysuria Musculoskeletal: Denies: Joint Pain, Joint Tenderness Skin: Denies: Rash, Wounds Neurological: Denies: Numbness, Tingling, Focal weakness Psychiatric: Denies: Anxiety, Depression, Homicidal Ideations, Suicidal Ideations Hematologic/ Lymphatic: Denies: Easy Bruising, Easy Bleeding VTE Information - Inpt Only VTE Present on Admission: No VTE Mechan Device Prophylaxis: SCD's - Physical Exam General: Alert, Oriented x3, Cooperative, No apparent distress HEENT: Atraumatic, PERRLA, EOMI, Normocephalic Oral: Moist Mucosa Neck: Supple, No JVD, Negative Carotid Bruits Abdomen: Bowel Sounds Present, Soft, Non Tender, Non-Distended, No Hepato- splenomegaly Extremities: No clubbing, No cyanosis, No edema, Capillary Refill Less than 3 Seconds Lymphatic: No Cervical, Supraclavicular, or Inguinal Adenopathy Neurological: Cranial nerves II-XII grossly intact Psych/Mental Status: Normal Affect, Appropriate, Alert and oriented to time, place, person, mood and affect Vital Signs Temp Pulse Resp BP Pulse Ox 97.9 F 79 16 105/46 L 99 11/24/18 10:42 11/24/18 10:42 11/24/18 10:42 11/24/18 10:42 11/24/18 10:42 Oxygen Delivery Method Room Air Weight: 222 lb Body Mass Index (BMI) 36.9 Laboratory Tests Past 24 Hrs 11/24/18 11/24/18 11:10 11:10 WBC 4.2 L RBC 3.85 L Hgb 11.2 L Hct 33.0 L MCV 85.7 MCH 29.1 MCHC 33.9 RDW 15.7 H RDW Differential 48.8 H Plt Count 93 L MPV 9.9 Immature Gran % (Auto) 0.000 Neut % (Auto) 74.0 H Lymph % (Auto) 17.1 L [place] % (Auto) 7.2 Eos % (Auto) 1.7 Baso % (Auto) 0.0 Absolute Neuts (auto) 3.1 Absolute Lymphs (auto) 0.71 L Total Counted Not Reportable Sodium 139 Potassium 2.5 L* Chloride 100 Carbon Dioxide 29.0 Anion Gap 10 BUN 8 Creatinine 0.97 Estim Creat Clear Calc 56.19 Est GFR (MDRD) Af Amer 76 Est GFR (MDRD) Non-Af 63 BUN/Creatinine Ratio 8.3 L Glucose 221 H Calcium 9.4 Magnesium 2.1 Assessment/Plan 58 y.o female presenting with a complaint of hypokalemia 1. Hypokalemia * potassium is 2.5; Mg is 2.1 * cause of hypokalemia currently unclear; she says she has had decreased intake and also had some nausea, vomiting and diarrhea in the past, though this is now resolved * is on HCTZ, which could contribute to hypokalemia * admit to PCU with telemetry * replace with IV potassium and monitor * 2. Diabetes mellitus; on glimepiride, dapaglifloxin and metformin. ISS Accuchecks ACHS 3. Hypertension: on HCTZ and metoprolol. will hold o/a of BP of 93/43 on arrival to floor 4. Hypotension: as under 3. Will give bolus of IVF NS 500c and continue hydrating with NS 75cc/hr x 1 bag 5. Bipolar disorder: [place] 6. History of intracranial bleed: * Patient states she recently had intracranial bleed and so has been off blood thinners for A. fib. * Currently rate controlled. Will monitor. * 7. Afib: rate and rhythm controlled. On metoprolol 8. SLE and psoriasis: On Plaquenil DVT prophylaxis: SCDs Code Visit OBSV E&M: [id number] Initial observation care L3
[2018-11-24] MEDS: Potassium Chloride 10mEq/100mL 10 MEQ/100 ML IV.SOLN. 100 MEQ IV BOLUS ×7 (12:32→19:59)
--- NOTE | 2018-11-24 13:07 | ED.DCSUM_ITS ---
- ER Visit Summary Date of Service: 11/24/18 Chief Complaint: [abnormal labs] History of Present Illness: The patient is a 58 F [that was sent due to abnormal outpatient labs. She believes her potassium is low. She feels generally weak and fatigued but otherwise has no other symptoms. She has no other complaints.] Physical Examination: [General: The patient appears well and in no apparent distress. Patient is resting comfortably on cart. Skin: Warm, dry, no pallor noted. No rash. Head: Normocephalic, atraumatic Neck: Supple, nontender. Eye: PERRLA, EOMI ENT: Moist mucus membranes, pharynx within normal limits. Cardiovascular: Regular Rate and Rhythm, no gallups or rubs Respiratory: Patient is in no distress, no accessory muscle use, lungs are clear to auscultation, no wheezing, rales or rhonchi Musculoskeletal: normal ROM, no deformity, no tenderness, no swelling. 2+ radial and DP pulses symmetric. GI: No tenderness to palpation, no masses appreciated. No rebound, guarding, or rigidity noted. Neurological: A&O, normal strength and sensation. Psychiatric: Cooperative] Test Results: [] Emergency Department Course and Treatment: [EKG shows sinus rhythm with a rate of 57, there are what appears to be Q waves indicative of hypokalemia. No acute ischemic changes or arrhythmia. Potassium 2.5. Remainder blood work overall unremarkable. She was ordered IV potassium repletion. I feel she will need to be admitted for further repletion and evaluation. Patient discussed with hospitalist, Dr. Tucker, who is agreeable with admission. Patient admitted in stable condition.] Treatment Plan: [see above] Disposition: [admission] Impression: [Hypokalemia, EKG Changes] This note was generated with [email or web address] dictation software. It may contain incorrect words, spelling, and punctuation that were not noted in review of the chart prior to signing ED Disposition - Plan for ED Patient: Chief Complaint: Abn Labs
[2018-11-24] MEDS: Heparin Injection (Vial) 5,000 UNIT/ML VIAL 5000 UNIT SC ×2 (15:52→22:01)
[2018-11-24] MEDS: 0.9% Normal Saline 1,000 ML 100 ML IV (15:56)
[2018-11-24] MEDS: Ferrous Gluconate 324 MG Tablet PO (15:57)
[2018-11-24] MEDS: Hydroxychloroquine 200 MG Tablet PO (15:57)
[2018-11-24 17:52] LABS: Anion Gap 7 (5-15); BUN 7 mg/dL (7-18); BUN/Creat Ratio 8.8 RATIO (10-20); Chloride 106 mmol/L (98-107); EST Glomerular Filtration Rate 78 mL/min (>60); Est Glom Filt Rate - Afr Amer 95 mL/min (>60); Estimated Creatinine Clearance 68.13 ml/min; Glucose 145 mg/dL (74-106); Potassium 2.8 mmol/L (3.5-5.1); Sodium Level 141 mmol/L (136-145)
[2018-11-24] MEDS: Glucerna Shake 120 ML LIQUID PO (18:18)
[2018-11-25] VITALS (11 sets, daily range): BP systolic 95–119; BP diastolic 38–55; PULSE 54–69; RESP 16–20; TEMP 36.4–37.3; O2SAT 95–97
[2018-11-25] MEDS: Heparin Injection (Vial) 5,000 UNIT/ML VIAL 5000 UNIT SC ×3 (06:48→21:35)
[2018-11-25 07:00] LABS: Absolute Lymphocyte Count 1.23 X10^3/ul (0.83-4.51); Absolute Neutrophil Count 1.2 X10^3/uL (2.0-7.7); Eosinophil# 0.05 X10^3/uL; Eosinophils% 1.9 % (0-5); Hematocrit 29.8 % (37-47); Hemoglobin 9.9 g/dl (12.0-15.0); Lymphocyte # 1.23 X10^3/ul (4.0); Lymphocyte % 46.8 % (19-41); Mean Corp Hgb Conc 33.2 g/gl (32-36); Mean Corpuscular Hgb 29.6 pg (27.0-32.0); Mean Platelet Vol. 10.5 fl (6.2-12.0); Monocyte# 0.19 X10^3/uL; Monocyte% 7.2 % (0-10); Neutrophil # 1.16 X10^3/uL (2.7-7.7); Neutrophil % 44.1 % (47-70); Platelet Count 85 K/mm3 (150-450); RBC Distribution Width CV 15.8 % (11.6-14.6); RBC Distribution Width SD 49.8 fl (35.1-43.9); Red Blood Count 3.35 M/mm3 (4.2-5.4); White Blood Count 2.6 K/mm3 (4.4-11.0)
[2018-11-25 07:07] LABS: POSITIVE COUNT NO; POSITIVE DIFFERENTIAL NO; POSITIVE MORPHOLOGY NO
[2018-11-25 07:31] LABS: Anion Gap 8 (5-15); BUN 6 mg/dL (7-18); BUN/Creat Ratio 9.8 RATIO (10-20); Calcium,Total 9.1 mg/dL (8.5-10.1); Chloride 109 mmol/L (98-107); Creatinine, Serum 0.62 mg/dL (0.55-1.02); EST Glomerular Filtration Rate 106 mL/min (>60); Est Glom Filt Rate - Afr Amer 128 mL/min (>60); Estimated Creatinine Clearance 87.91 ml/min; Glucose 104 mg/dL (74-106); Magnesium 2.2 mg/dL (1.6-2.6); Sodium Level 145 mmol/L (136-145)
[2018-11-25] MEDS: Empagliflozin 25 MG Tablet PO (08:50)
[2018-11-25] MEDS: Sertraline 100 MG Tablet 150 MG PO (08:50)
[2018-11-25] MEDS: Hydroxychloroquine 200 MG Tablet PO ×2 (08:51→18:29)
[2018-11-25] MEDS: Glimepiride 4 MG Tablet PO (08:51)
[2018-11-25] MEDS: Pantoprazole Sodium 40 MG Tablet PO (08:52)
[2018-11-25] MEDS: Ferrous Gluconate 324 MG Tablet PO ×2 (08:52→18:28)
[2018-11-25] MEDS: Lithium Carbonate 150 MG Capsule 300 MG PO (09:10)
[2018-11-25] MEDS: Potassium Chloride 10mEq/100mL 10 MEQ/100 ML IV.SOLN. 100 MEQ IV BOLUS ×6 (09:19→15:46)
[2018-11-25] MEDS: 0.9% Normal Saline 1,000 ML 75 ML IV (10:34)
--- NOTE | 2018-11-25 12:46 | PCM.PN.HOSP ---
Subjective: Patient seen and examined. He had no active events overnight. She had no complaints and denied any fever or chills, any cough or chest pain, any shortness of breath, abdominal pain, any diarrhea vomiting. Stents otherwise negative. Labs and vitals reviewed. Patient noted to be hypotensive overnight with blood pressure going down to the 90s over 50s. He is asymptomatic though. Potassium this morning is only 3 Vitals/I&O's: Vital Signs Temp Pulse Resp BP Pulse Ox 99.1 F 61 18 101/46 L 95 11/25/18 08:36 11/25/18 08:36 11/25/18 08:36 11/25/18 08:36 11/25/18 08:36 Oxygen Delivery Method Room Air Weight: 223 lb 8.78 oz Body Mass Index (BMI) 37.2 Intake and Output for Last 24 Hours 11/23/18 11/24/18 11/25/18 23:59 23:59 23:59 Intake Total 2423 / 2423 1034 / 1034 Balance 2423 / 2423 1034 / 1034 General: Alert, Oriented x3, Cooperative, No apparent distress HEENT: Atraumatic, PERRLA, EOMI, Normocephalic Oral: Moist Mucosa Neck: Supple, No JVD, Negative Carotid Bruits Abdomen: Bowel Sounds Present, Soft, Non Tender, Non-Distended, No Hepato-splenomegaly Extremities: No clubbing, No cyanosis, No edema, Capillary Refill Less than 3 Seconds Lymphatic: No Cervical, Supraclavicular, or Inguinal Adenopathy Neurological: Cranial nerves II-XII grossly intact Psych/Mental Status: Normal Affect, Appropriate, Alert and oriented to time, place, person, mood and affect Laboratory Results 11/24/18 17:00: Sodium 141, Potassium 2.8 L, Chloride 106, Carbon Dioxide 28.0, Anion Gap 7, BUN 7, Creatinine 0.80, Estim Creat Clear Calc 68.13, Est GFR (MDRD) Af Amer 95, Est GFR (MDRD) Non-Af 78, BUN/Creatinine Ratio 8.8 L, Glucose 145 H, Calcium 9.0 11/25/18 06:41: WBC 2.6 L, RBC 3.35 L, Hgb 9.9 L, Hct 29.8 L, MCV 89.0, MCH 29.6, MCHC 33.2, RDW 15.8 H, RDW Differential 49.8 H, Plt Count 85 L, MPV 10.5, Immature Gran % (Auto) 0.000, Neut % (Auto) 44.1 L, Lymph % (Auto) 46.8 H, [place] % (Auto) 7.2, Eos % (Auto) 1.9, Baso % (Auto) 0.0, Absolute Neuts (auto) 1.2 L, Absolute Lymphs (auto) 1.23, Total Counted Not Reportable 11/25/18 06:41: Sodium 145, Potassium 3.0 L, Chloride 109 H, Carbon Dioxide 28.0, Anion Gap 8, BUN 6 L, Creatinine 0.62, Estim Creat Clear Calc 87.91, Est GFR (MDRD) Af Amer 128, Est GFR (MDRD) Non-Af 106, BUN/Creatinine Ratio 9.8 L, Glucose 104, Calcium 9.1, Magnesium 2.2 Current Medications Ferrous [facility]con[facility] Admin: 11/25/18 08:52 Dose: 324 mg Glimepiride (Amaryl) 4 mg PO DAILY@0800 [facility] Last Admin: 11/25/18 08:51 Dose: 4 mg Heparin Sodium (Porcine) (Heparin Na) 5,000 unit SC Q8 [facility] Last Admin: 11/25/18 06:48 Dose: 5,000 unit Hydroxychloroquine Sulfate (Plaquenil) [facility] Last Admin: 11/25/18 08:51 Dose: 200 mg Potassium Chloride () 10 meq in 100 mls @ 100 mls/hr IV BOLUS Q1H [facility] Stop: 11/25/18 14:59 Last Admin: 11/25/18 11:40 Dose: 100 mls/hr Sodium Chloride () 1,000 mls @ 75 mls/hr IV .[id number] [facility] Last Admin: 11/25/18 10:34 Dose: 75 mls/hr [place] Carbonate ([place] Carbonate) 300 mg PO DAILY [facility] Last Admin: 11/25/18 09:10 Dose: 300 mg Magnesium Hydroxide (Milk Of Magnesia) 30 ml PO DAILY PRN PRN PRN Reason: Constipation Metformin HCl (Glucophage) [facility] Last Admin: 11/25/18 08:51 Dose: 500 mg Nitroglycerin (Nitrostat) 0.4 mg SUBLINGUAL Q5M PRN PRN Reason: CARDIAC/CHEST PAIN Nutritional Formula (Lactose Free) (Glucerna Shake) 120 ml PO 4X/DAY [facility] Last Admin: 11/25/18 08:52 Dose: Not Given Ondansetron HCl (Zofran Odt) 4 mg PO Q6H PRN PRN PRN Reason: nausea Pantoprazole Sodium (Protonix) 40 mg PO DAILY [facility] Last Admin: 11/25/18 08:52 Dose: 40 mg Sertraline HCl (Zoloft) 150 mg PO DAILY [facility] Last Admin: 11/25/18 08:50 Dose: 150 mg Sodium Chloride () 5 - 15 ml IV UD PRN PRN Reason: SALINE FLUSH Medical Necessity - Tobacco Use Smoking Status: Former smoker Tobacco Use: Non-smoker Assessment/Plan 58 y.o female presenting with a complaint of hypokalemia 1. Hypokalemia K was 2.5 on admission, and is now up to 3. Mg is 2.2 received IV potassium 60mEq yesterday. will give IV KCL 60mEq today and put on PO replacement 40meq bid continue to monitor 2. Diabetes mellitus; on glimepiride, dapaglifloxin and metformin. ISS Accuchecks ACHS 3. Hypertension: BP meds remain on hold o/a of hypotension. Patient still hypotensive overnight. will cotntinue to hold BP meds 4. Hypotension: as under 3. still remained hypotensive overnight, with BP going down to 90s/40s will increase IVF to 125cc/hr 5. Asymptomatic bradycardia: HR has been in the mid 50s. patient is asymptomatic. EKG showed no evidence of AV block will continue to monitor 6. Bipolar disorder: [place] 7. History of intracranial bleed: Patient states she recently had intracranial bleed and so has been off blood thinners for A. fib. Currently rate controlled. Will monitor. 8. Afib: rate and rhythm controlled. On metoprolol 9. SLE and psoriasis: On Plaquenil DVT prophylaxis: SCDs Code Visit Inpatient E&M: 75048 [facility] L3
--- NOTE | 2018-11-25 12:52 | PN_ITS ---
Subjective: Patient seen and examined. He had no active events overnight. She had no complaints and denied any fever or chills, any cough or chest pain, any sh ortness of breath, abdominal pain, any diarrhea vomiting. Stents otherwise negative. Labs and vitals reviewed. Patient noted to be hypotensive overnight with blood pressure going down to the 90s over 50s. He is asymptomatic though. Potassium this morning is only 3 Vitals/I&O's: Vital Signs Temp Pulse Resp BP Pulse Ox 99.1 F 61 18 101/46 L 95 11/25/18 08:36 11/25/18 08:36 11/25/18 08:36 11/25/18 08:36 11/25/18 08:36 Oxygen Delivery Method Room Air Weight: 223 lb 8.78 oz Body Mass Index (BMI) 37.2 Intake and Output for Last 24 Hours 11/23/18 11/24/18 11/25/18 23:59 23:59 23:59 Intake Total 2423 / 2423 1034 / 1034 Balance 2423 / 2423 1034 / 1034 General: Alert, Oriented x3, Cooperative, No apparent distress HEENT: Atraumatic, PERRLA, EOMI, Normocephalic Oral: Moist Mucosa Neck: Supple, No JVD, Negative Carotid Bruits Abdomen: Bowel Sounds Present, Soft, Non Tender, Non-Distended, No Hepato- splenomegaly Extremities: No clubbing, No cyanosis, No edema, Capillary Refill Less than 3 Seconds Lymphatic: No Cervical, Supraclavicular, or Inguinal Adenopathy Neurological: Cranial nerves II-XII grossly intact Psych/Mental Status: Normal Affect, Appropriate, Alert and oriented to time, place, person, mood and affect Laboratory Results 11/24/18 17:00: Sodium 141, Potassium 2.8 L, Chloride 106, Carbon Dioxide 28.0, Anion Gap 7, BUN 7, Creatinine 0.80, Estim Creat Clear Calc 68.13, Est GFR (MDRD) Af Amer 95, Est GFR (MDRD) Non-Af 78, BUN/Creatinine Ratio 8.8 L, Glucose 145 H, Calcium 9.0 11/25/18 06:41: WBC 2.6 L, RBC 3.35 L, Hgb 9.9 L, Hct 29.8 L, MCV 89.0, MCH 29.6, MCHC 33.2, RDW 15.8 H, RDW Differential 49.8 H, Plt Count 85 L, MPV 10.5, Immature Gran % (Auto) 0.000, Neut % (Auto) 44.1 L, Lymph % (Auto) 46.8 H, [place] % (Auto) 7.2, Eos % (Auto) 1.9, Baso % (Auto) 0.0, Absolute Neuts (auto) 1.2 L, Absolute Lymphs (auto) 1.23, Total Counted Not Reportable 11/25/18 06:41: Sodium 145, Potassium 3.0 L, Chloride 109 H, Carbon Dioxide 28.0, Anion Gap 8, BUN 6 L, Creatinine 0.62, Estim Creat Clear Calc 87.91, Est GFR (MDRD) Af Amer 128, Est GFR (MDRD) Non-Af 106, BUN/Creatinine Ratio 9.8 L, Glucose 104, Calcium 9.1, Magnesium 2.2 Current Medications [facility] Last Admin: 11/25/18 08:52 Dose: 324 mg Glimepiride (Amaryl) 4 mg PO DAILY@0800 [facility] Last Admin: 11/25/18 08:51 Dose: 4 mg Heparin Sodium (Porcine) (Heparin Na) 5,000 unit SC Q8 [facility] Last Admin: 11/25/18 06:48 Dose: 5,000 unit Hydroxychloroquine Sulfate (Plaquenil) [facility] Last Admin: 11/25/18 08:51 Dose: 200 mg Potassium Chloride () 10 meq in 100 mls @ 100 mls/hr IV BOLUS Q1H [facility] Stop: 11/25/18 14:59 Last Admin: 11/25/18 11:40 Dose: 100 mls/hr Sodium Chloride () 1,000 mls @ 75 mls/hr IV .[id number] [facility] Last Admin: 11/25/18 10:34 Dose: 75 mls/hr [place] Carbonate ([place] Carbonate) 300 mg PO DAILY [facility] Last Admin: 11/25/18 09:10 Dose: 300 mg Magnesium Hydroxide (Milk Of Magnesia) 30 ml PO DAILY PRN PRN PRN Reason: Constipation Metformin HCl (Glucophage) [facility] Last Admin: 11/25/18 08:51 Dose: 500 mg Nitroglycerin (Nitrostat) 0.4 mg SUBLINGUAL Q5M PRN PRN Reason: CARDIAC/CHEST PAIN Nutritional Formula (Lactose Free) (Glucerna Shake) 120 ml PO 4X/DAY [facility] Last Admin: 11/25/18 08:52 Dose: Not Given Ondansetron HCl (Zofran Odt) 4 mg PO Q6H PRN PRN PRN Reason: nausea Pantoprazole Sodium (Protonix) 40 mg PO DAILY [facility] Last Admin: 11/25/18 08:52 Dose: 40 mg Sertraline HCl (Zoloft) 150 mg PO DAILY [facility] Last Admin: 11/25/18 08:50 Dose: 150 mg Sodium Chloride () 5 - 15 ml IV UD PRN PRN Reason: SALINE FLUSH Medical Necessity - Tobacco Use Smoking Status: Former smoker Tobacco Use: Non-smoker Assessment/Plan 58 y.o female presenting with a complaint of hypokalemia 1. Hypokalemia * K was 2.5 on admission, and is now up to 3. * Mg is 2.2 * received IV potassium 60mEq yesterday. * will give IV KCL 60mEq today and put on PO replacement 40meq bid * continue to monitor * * 2. Diabetes mellitus; on glimepiride, dapaglifloxin and metformin. ISS Accuchecks ACHS 3. Hypertension: BP meds remain on hold o/a of hypotension. Patient still hypotensive overnight. will cotntinue to hold BP meds 4. Hypotension: * as under 3. still remained hypotensive overnight, with BP going down to 90s/40s * will increase IVF to 125cc/hr * 5. Asymptomatic bradycardia: * HR has been in the mid 50s. patient is asymptomatic. EKG showed no evidence of AV block * will continue to monitor * 6. Bipolar disorder: [place] 7. History of intracranial bleed: * Patient states she recently had intracranial bleed and so has been off blood thinners for A. fib. * Currently rate controlled. Will monitor. * 8. Afib: rate and rhythm controlled. On metoprolol 9. SLE and psoriasis: On Plaquenil DVT prophylaxis: SCDs Code Visit Inpatient E&M: 34319 Subs Hosp L3
[2018-11-25] MEDS: Glucerna Shake 120 ML LIQUID PO (13:20)
[2018-11-26 03:00] VITALS: PULSE 51
[2018-11-26 04:27] VITALS: BP 88/46; PULSE 53; RESP 16; TEMP 36.7; O2SAT 96
[2018-11-26] MEDS: Lactated Ringers 500 ML 999 ML IV (05:13)
[2018-11-26] MEDS: Heparin Injection (Vial) 5,000 UNIT/ML VIAL 5000 UNIT SC (05:14)
[2018-11-26 05:48] VITALS: BP 91/51; PULSE 59; RESP 16; TEMP 36.9; O2SAT 95
[2018-11-26 07:07] VITALS: PULSE 62
[2018-11-26 08:36] LABS: Magnesium 1.8 mg/dL (1.6-2.6)
[2018-11-26 08:42] LABS: Anion Gap 7 (5-15); BUN 7 mg/dL (7-18); BUN/Creat Ratio 10.2 RATIO (10-20); Calcium,Total 8.7 mg/dL (8.5-10.1); Chloride 110 mmol/L (98-107); Creatinine, Serum 0.68 mg/dL (0.55-1.02); EST Glomerular Filtration Rate 93 mL/min (>60); Est Glom Filt Rate - Afr Amer 113 mL/min (>60); Estimated Creatinine Clearance 80.16 ml/min; Glucose 172 mg/dL (74-106); Sodium Level 141 mmol/L (136-145)
[2018-11-26 09:00] VITALS: BP 91/39; PULSE 70; RESP 18; TEMP 36.6; O2SAT 96
--- NOTE | 2018-11-26 09:34 | PCM.DC ---
You will use the following diet at home:: Cardiac Your food should be the consistency of: Regular Your liquids should be the consistency of: Regular/Thin Discharge Activity: Return to Normal Activity Weight Bearing Status: Weight bearing as tolerated Call your doctor if you observe: Dizziness, Fainting spells Instructions: Discharge Instructions for Hypokalemia, Discharge Instructions: Eating a High Potassium Diet Additional Instructions: please follow up with PCP for repeat BMP to check potassium level within one week. BP meds stopped o/a of hypotension. Follow with PCP to decide whether to resume them. Keep hydrated at home and eat high potassium diet Allergies/Adverse Reactions: Allergies No Known Allergies Allergy (Verified 11/24/18 10:25) Medications to take at Discharge Glimepiride 4 mg PO DAILY 03/27/15 Metformin HCl [Glucophage] 500 mg PO BIDCM 03/27/15 Nitrostat 0.4 mg SL PRN PRN 03/27/15 Protonix 40 mg PO DAILY 03/27/15 Zoloft 150 mg PO DAILY 03/27/15 Dapagliflozin Propanediol [Farxiga] 10 mg PO DAILY 10/20/18 Ferrous Gluconate 324 mg PO BID 10/20/18 Hydroxychloroquine [Plaquenil] 200 mg PO BIDCM 10/20/18 [place] Carbonate [[place] Carbonate ER] 1 tab PO DAILY 11/24/18 [place] Carbonate [[place] Carbonate ER] 2 tab PO QHS 11/24/18 Ondansetron HCl [Zofran] 4 mg PO Q6H PRN PRN 11/24/18 Potassium Chloride [Klor-Con] 20 meq PO BID #60 packet 11/26/18 The following prescriptions were given: Potassium Chloride [Klor-Con] 20 meq PO BID #60 packet Primary Care Physician: Yandel Cabrera MD [Primary Care Provider] - Please follow up with your Primary Care Physician in: one week Test Results: Test results from this visit will be discussed in further detail at your follow-up appointment, if applicable. Proposed Discharge Date: 11/26/18
--- NOTE | 2018-11-26 09:37 | DCINST_ITS ---
You will use the following diet at home:: Cardiac Your food should be the consistency of: Regular Your liquids should be the consistency of: Regular/Thin Discharge Activity: Return to Normal Activity Weight Bearing Status: Weight bearing as tolerated Call your doctor if you observe: Dizziness, Fainting spells Instructions: Discharge Instructions for Hypokalemia, Discharge Instructions: Eating a High Potassium Diet Additional Instructions: please follow up with PCP for repeat BMP to check potassium level within one week. BP meds stopped o/a of hypotension. Follow with PCP to decide whether to resume them. Keep hydrated at home and eat high potassium diet Allergies/Adverse Reactions: Allergies No Known Allergies Allergy (Verified 11/24/18 10:25) Medications to take at Discharge Glimepiride 4 mg PO DAILY 03/27/15 Metformin HCl [Glucophage] 500 mg PO BIDCM 03/27/15 Nitrostat 0.4 mg SL PRN PRN 03/27/15 Protonix 40 mg PO DAILY 03/27/15 Zoloft 150 mg PO DAILY 03/27/15 Dapagliflozin Propanediol [Farxiga] 10 mg PO DAILY 10/20/18 Ferrous Gluconate 324 mg PO BID 10/20/18 Hydroxychloroquine [Plaquenil] 200 mg PO BIDCM 10/20/18 [place] Carbonate [[place] Carbonate ER] 1 tab PO DAILY 11/24/18 [place] Carbonate [[place] Carbonate ER] 2 tab PO QHS 11/24/18 Ondansetron HCl [Zofran] 4 mg PO Q6H PRN PRN 11/24/18 Potassium Chloride [Klor-Con] 20 meq PO BID #60 packet 11/26/18 The following prescriptions were given: Potassium Chloride [Klor-Con] 20 meq PO BID #60 packet Primary Care Physician: Yandel Cabrera MD [Primary Care Provider] - Please follow up with your Primary Care Physician in: one week Test Results: Test results from this visit will be discussed in further detail at your follow- up appointment, if applicable. Proposed Discharge Date: 11/26/18
--- NOTE | 2018-11-26 09:37 | DS.PCM_ITS ---
Discharge Date and Diagnosis Date of Admission: 11/24/18 Date of Discharge: 11/26/18 - Primary Discharge Diagnosis hypokalemia hypotension - Secondary Discharge Diagnosis Chronic Problems Hypertension (Chronic) GERD (gastroesophageal reflux disease) (Chronic) Bipolar disorder (Chronic) Diabetes mellitus, type II (Chronic) Morbid obesity with BMI of 45.0-49.9, adult (Chronic) Hospital Course and Treatment Operations: None Procedures: None Summary of Care Provided: The patient is a 58 year old F with a past medical history of hypertension, GERD, bipolar disorder, morbid obesity and diabetes mellitus as well as recent intracranial bleed. She was admitted through the ED with a complaint of hypokalemia. Patient states she had blood work done by home health nurse about 3 days prior to admission. PCP called her on day of admission with the results and told her to come immediately to the ED as her potassium was low. She had no complaints and denied any lightheadedness or dizziness or palpitations, any chest pain, abdominal pain, diarrhea vomiting. Arrival in the ED, potassium was found to be 2.5. EKG showed mild ST depression in the inferior and hugo- lateral leads. She had no chest pain whatsoever, She was admitted to be managed for hypokalemia. Potassium was replaced and trended up slowly from 2.5- 3 and then to 4. Patient was also noted to be hypotensive during this admission though she was asymptomatic. Blood pressure was in the 90s and 100s systolic. Her blood pressure medications were therefore held. She was also hydrated with IV fluids. She remained asymptomatic and was stable. She was discharged on 11/26/2018 with a prescription for p.o. potassium. Blood pressure medications were also stopped on account of asymptomatic hypotension and she is to follow-up with her primary care doctor to decide if and when her blood pressure medications are to be resumed. Patient seen and examined prior to discharge. She had no complaints and felt well and was anxious to go home. She denied any fever, any chills, any cough or chest pain, shortness of breath, any abdominal pain palpitations or dizziness or lightheadedness, any diarrhea vomiting. Review of systems otherwise negative. Labs and vitals reviewed. Home medications reviewed and reconciled. Orthostatics were checked and were negative. o/e: Vital Signs Height 5 ft 5 in Weight: 223 lb 8.78 oz Weight in Pounds 223.5 lbs Pulse Ox 96 Temperature 97.8 F Pulse Rate [Standing] 69 Pulse Rate [Sitting] 62 Pulse Rate [Lying] 60 Pulse Rate [Left] 79 Pulse Rate 70 Respiratory Rate 18 Blood Pressure [Standing] 102/42 Blood Pressure [Sitting] 95/42 Blood Pressure [Lying] 104/45 Blood Pressure [Left Arm] 105/46 Blood Pressure 91/39 Blood Pressure Position [Left Sitting Arm] Blood Pressure Position Sitting [] General: Alert, Oriented x3, Cooperative, No apparent distress HEENT: Atraumatic, PERRLA, EOMI, Normocephalic Oral: Moist Mucosa Neck: Supple, No JVD, Negative Carotid Bruits Abdomen: Bowel Sounds Present, Soft, Non Tender, Non-Distended, No Hepato- splenomegaly Extremities: No clubbing, No cyanosis, No edema, Capillary Refill Less than 3 Seconds Lymphatic: No Cervical, Supraclavicular, or Inguinal Adenopathy Neurological: Cranial nerves II-XII grossly intact Psych/Mental Status: Normal Affect, Appropriate, Alert and oriented to time, place, person, mood and affect [] Plan as stated above. She is also to follow-up with her primary care doctor for repeat BMP to monitor potassium levels within 1 week. - Physical Exam Vital Signs Temp Pulse Resp BP Pulse Ox 97.8 F 70 18 91/39 L 96 11/26/18 09:00 11/26/18 09:00 11/26/18 09:00 11/26/18 09:00 11/26/18 09:00 Oxygen Delivery Method Room Air Weight: 223 lb 8.78 oz Body Mass Index (BMI) 37.2 Intake and Output for Last 24 Hours 11/24/18 11/25/18 11/26/18 23:59 23:59 23:59 Intake Total 2423 / 2423 1274 / 1274 Balance 2423 / 2423 1274 / 1274 Laboratory Tests Past 24 Hrs 11/26/18 11/26/18 08:00 08:00 Sodium 141 Potassium 4.0 Chloride 110 H Carbon Dioxide 24.0 Anion Gap 7 BUN 7 Creatinine 0.68 Estim Creat Clear Calc 80.16 Est GFR (MDRD) Af Amer 113 Est GFR (MDRD) Non-Af 93 BUN/Creatinine Ratio 10.2 Glucose 172 H Calcium 8.7 Magnesium 1.8 Discharge Diet: Low fat/ Low Cholesterol Discharge Activity: Return to Normal Activity Weight Bearing Status: Weight bearing as tolerated Call your doctor if you observe: Dizziness, Fainting spells Home Medications: Medications to take at Discharge Glimepiride 4 mg PO DAILY 03/27/15 Metformin HCl [Glucophage] 500 mg PO BIDCM 03/27/15 Nitrostat 0.4 mg SL PRN PRN 03/27/15 Protonix 40 mg PO DAILY 03/27/15 Zoloft 150 mg PO DAILY 03/27/15 Dapagliflozin Propanediol [Farxiga] 10 mg PO DAILY 10/20/18 Ferrous Gluconate 324 mg PO BID 10/20/18 Hydroxychloroquine [Plaquenil] 200 mg PO BIDCM 10/20/18 [place] Carbonate [[place] Carbonate ER] 1 tab PO DAILY 11/24/18 [place] Carbonate [[place] Carbonate ER] 2 tab PO QHS 11/24/18 Ondansetron HCl [Zofran] 4 mg PO Q6H PRN PRN 11/24/18 Potassium Chloride [Klor-Con] 20 meq PO BID #60 packet 11/26/18 Following Prescrptions Were Given to Patient: Potassium Chloride [Klor-Con] 20 meq PO BID #60 packet Primary Care Physician: Yandel Cabrera MD [Primary Care Provider] - Please follow up with your Primary Care Physician in: one week Patient Instructions: Discharge Instructions for Hypokalemia, Discharge Instructions: Eating a High Potassium Diet Medical Necessity - Tobacco Use Smoking Status: Former smoker Tobacco Use: Non-smoker Meaningful Use Info Meaningful Use Diagnoses (Choose all that apply): None applicable Code Visit Inpatient E&M: 30466 Disch Hosp
[2018-11-26] MEDS: 0.9% Normal Saline 1,000 ML 999 ML IV (10:02)
--- NOTE | 2018-11-26 10:14 | CASEMGMT ---
[facility] aware that pt to be discharged today and resumption of care order as well as H&P and d/c instructions faxed to [facility] at this time. Tim voices no further questions regarding pt at this time. Kwan ACUNA CM
[2018-11-26 11:03] VITALS: BP 102/42; BP 104/45; BP 95/42; PULSE 60; PULSE 62; PULSE 69
--- NOTE | 2018-11-26 11:54 | CASEMGMT ---
This RN CM to room to complete CM assessment and pt had already been discharged by RN. This RN CM had already resumed [facility] for pt and [facility] aware. Per Mary RN, pt had no other needs at this time. SStaten RN CM
--- NOTE | 2018-11-27 16:27 | CASEMGMT ---
ARMAND VAZQUEZ DC Phone Call DC DATE: 11/26/18 DC Disposition: Home w/[facility]: 09/27 Intro role of CM to patient via phone. Discussed dc instructions, pt has medications and follow up appt has been made. Pt states she has spoken with [facility]. Pt will have them resume after her deductible has been met. Pt able to care for self. ARMAND VAZQUEZ let her know that likely her hospital stay will meet or come close to meeting her deductible. Pt states [facility] will be contacting her again. -Pt states her care was excellent, no care improvement suggestions given. Ozzie OLIVA RN ACM
== END 2018-11-26 11:30 | disposition home or self-care (01) | DRG 641 ==
LOC: ED 11:13 → PCU 12:44
PROVIDERS: Admitting Provider Student in an Organized Health Care Education/Training Program; Emergency Provider Emergency Medicine; Family Provider Family Medicine; PCP Family Medicine; Visit Provider Student in an Organized Health Care Education/Training Program
DX: E87.6 Hypokalemia (principal); E66.01 Morbid (severe) obesity due to excess calories; Z68.37 Body mass index [BMI] 37.0-37.9, adult; K21.9 Gastro-esophageal reflux disease without esophagitis; I10 Essential (primary) hypertension; E11.9 Type 2 diabetes mellitus without complications; F31.9 Bipolar disorder, unspecified; Z79.84 Long term (current) use of oral hypoglycemic drugs; Z79.899 Other long term (current) drug therapy; Z87.891 Personal history of nicotine dependence; I95.9 Hypotension, unspecified; I48.91 Unspecified atrial fibrillation; M32.9 Systemic lupus erythematosus, unspecified; L40.9 Psoriasis, unspecified; Z86.79 Personal history of other diseases of the circulatory system
CPT/HCPCS: 36415; 80048; 83735; 85025; 93005; 97802; 99283; J7030; J7040; J7120; A4216

== ENCOUNTER → 2018-12-12 14:21 | Outpatient (CLI) | payer OTHER, SELFPAY ==
[2018-11-24 13:22] VITALS: BMI 37.2
[2018-12-12 16:41] LABS: Anion Gap 7 (5-15); BUN 10 mg/dL (7-18); BUN/Creat Ratio 14.1 RATIO (10-20); Calcium,Total 9.8 mg/dL (8.5-10.1); Chloride 106 mmol/L (98-107); Creatinine, Serum 0.71 mg/dL (0.55-1.02); EST Glomerular Filtration Rate 90 mL/min (>60); Est Glom Filt Rate - Afr Amer 108 mL/min (>60); Glucose 176 mg/dL (74-106); Potassium 3.8 mmol/L (3.5-5.1); Sodium Level 138 mmol/L (136-145)
--- OUTSIDE RECORDS SUMMARY | 2019-02-16 04:42 | XMS RPT_ITS ---
:1960 Author Organization [place] Support Name Relationship Address Phone MARTINECHRISTINA Reynolds Unavailable [address] + [place] [address] JOANNE FERGUSON Unavailable [address] + [place] [address] R Unavailable Unavailable Unavailable CHRISTINA GUERRERO Unavailable [address] Unavailable [place], [place] [phone] NOT GIVEN Unavailable Unavailable Unavailable DARVIN PLASCENCIA Unavailable Unavailable + CHRISTINA GUERRERO Unavailable [address] + [place] [address] JOANNE FERGUSON Unavailable [address] + [place] [address] R Unavailable Unavailable Unavailable CHRISTINA GUERRERO Unavailable [address] + [place] [address] JOANNE FERGUSON Unavailable [address] + [place] [address] R Unavailable Unavailable Unavailable CHRISTINA GUERRERO Unavailable [address] + [place] [address] JOANNE FERGUSON Unavailable [address] + [place] [address] R Unavailable Unavailable Unavailable CHRISTINA GUERRERO Unavailable [address] + [place] [address] JOANNE FERGUSON Unavailable [address] + [place] [address] R Unavailable Unavailable Unavailable CHRISTINA GUERRERO Unavailable [address] Unavailable [place], [place] [id number] NOT GIVEN Unavailable Unavailable Unavailable DARVIN PLASCENCIA Unavailable Unavailable + CHRISTINA GUERRERO Unavailable [address] Unavailable [place], [place] [phone] NOT GIVEN Unavailable Unavailable Unavailable DARVIN PLASCENCIA Unavailable Unavailable + LEIGHA GARCIA Unavailable Unavailable + CHRISTI CHRISTINA Unavailable [address] + [place] [address] JOANNE FERGUSON Unavailable [address] + [place] [address] R Unavailable Unavailable Unavailable CHRISTI CHRISTINA Unavailable [address] Unavailable [place], [place] [phone] NOT GIVEN Unavailable Unavailable Unavailable DARVIN PLASCENCIA Unavailable Unavailable + CHRISTI CHRISTINA Unavailable [address] Unavailable [place], [place] [phone] NOT GIVEN Unavailable Unavailable Unavailable DARVIN PLASCENCIA Unavailable Unavailable + CHRISTI CHRISTINA Unavailable [address] Unavailable [place], [place] [phone] NOT GIVEN Unavailable Unavailable Unavailable DARVIN PLASCENCIA Unavailable Unavailable + CHRISTI CHRISTINA Unavailable [address] + [place] [address] JOANNE FERGUSON Unavailable [address] + [place] [address] R Unavailable Unavailable Unavailable CHRISTI CHRISTINA Unavailable [address] Unavailable [place], [place] [phone] NOT GIVEN Unavailable Unavailable Unavailable DARVIN PLASCENCIA Unavailable Unavailable + CHRISTINA GUERRERO Unavailable [address] Unavailable [place], [place] [phone] NOT GIVEN Unavailable Unavailable Unavailable DARVIN PLASCENCIA Unavailable Unavailable + CHRISTINA GUERRERO Unavailable [address] Unavailable [place], [place] [phone] NOT GIVEN Unavailable Unavailable Unavailable DARVIN PLASCENCIA Unavailable Unavailable + CHRISTINA GUERRERO Unavailable [address] + [place] [address] JOANNE FERGUSON Unavailable [address] + [place] [address] R Unavailable Unavailable Unavailable FEIKERT, CHRISTINA Unavailable [address] + [place] [address] JOANNE FERGUSON Unavailable [address] + [place] [address] R Unavailable Unavailable Unavailable CHRISTINA GUERRERO Unavailable [address] Unavailable [place], [place] [phone] NOT GIVEN Unavailable [place] [address] DARVIN TOLBERT Unavailable Unavailable + Care Team Providers Name Role Phone [facility] Primary Care Unavailable Koram, Bonnie Bernadette Admitting Unavailable Koram, Bonnie Bernadette Attending Unavailable Koram, Bonnie Bernadette Admitting Unavailable Koram, Bonnie Bernadette Attending Unavailable [facility] Primary Care Unavailable Koram, Bonnie Bernadette Consulting Unavailable Koram, Bonnie Bernadette Admitting Unavailable Koram, Bonnie Bernadette Attending Unavailable [facility] Primary Care Unavailable Koram, Bonnie Bernadette Consulting Unavailable Koram, Bonnie Bernadette Admitting Unavailable Kor, Bonnie Bernadette Attending Unavailable [facility] Primary Care Unavailable Koram, Bonnie Bernadette Consulting Unavailable Aryan Jean Attending Unavailable Ted, Aryan Referring Unavailable [facility] Primary Care Unavailable TedJus moseleynis Attending Unavailable Primay Care Physicia, No Primary Care Unavailable VellanAbigail pritchett Attending Unavailable Hermanlanshreyas, Abigail Referring Unavailable [facility] Primary Care Unavailable Abigail Myers Attending Unavailable Hermanlanshreyas, Abigail Referring Unavailable [facility] Primary Care Unavailable [facility] Primary Care Unavailable Dylon Owens Attending Unavailable WILLIAM WYNN DO Admitting Unavailable WILLIAM WYNN DO Attending Unavailable NO, DOCTOR ON Referring Unavailable NO, DOCTOR ON Consulting Unavailable WILLIAM WYNN DO Primary Care Unavailable JUS JEANNIS Admitting Unavailable ARYAN JEAN Attending Unavailable [facility] YANDEL Consulting Unavailable TED, ARYAN Primary Care Unavailable PROVIDER, UNKNOWN Consulting Unavailable BRYCEIVBETH MCCLENDON MD Admitting Unavailable BETH BYRD MD Attending Unavailable [facility] YANDEL Consulting Unavailable BETH BYRD MD Primary Care Unavailable PROVIDER, UNKNOWN Consulting Unavailable BETH BYRD MD Admitting Unavailable BETH BYRD MD Attending Unavailable [facility] YANDEL Consulting Unavailable BETH BYRD MD Primary Care Unavailable PROVIDER, UNKNOWN Consulting Unavailable BETH BYRD MD Admitting Unavailable HLGURU, BETH BARRON Attending Unavailable BETH BYRD MD Primary Care Unavailable ELEAZAR, YANDEL Consulting Unavailable PROVIDER, UNKNOWN Consulting Unavailable FCO LIMA Admitting Unavailable HABFCO LEE Attending Unavailable ELEAZAR, YANDEL Referring Unavailable HABERFCO FRANCO Primary Care Unavailable ELEAZAR, YANDEL Consulting Unavailable PROVIDER, UNKNOWN Consulting Unavailable JOHN FANG Admitting Unavailable JOHN FANG Attending Unavailable ELEAZAR, YANDEL Referring Unavailable ELEAZAR, YANDEL Consulting Unavailable LEMJOHN SANFORD Primary Care Unavailable PROVIDER, UNKNOWN Consulting Unavailable KATHLEEN BONILLA MD Admitting Unavailable KATHLEEN BONILLA MD Attending Unavailable ELEAZAR, YANDEL Consulting Unavailable KATHLEEN BONILLA MD Primary Care Unavailable PROVIDER, UNKNOWN Consulting Unavailable HABERFCO FRANCO Admitting Unavailable FCO LIMA Attending Unavailable ELEAZAR, YANDEL Referring Unavailable ELEAZAR, YANDEL Consulting Unavailable [facility]CO LIMA Primary Care Unavailable PROVIDER, UNKNOWN Consulting Unavailable KRISTAN CORONA Admitting Unavailable KRISTAN CORONA Attending Unavailable KRISTAN CORONA Primary Care Unavailable ELEAZAR, YANDEL Consulting Unavailable PROVIDER, UNKNOWN Consulting Unavailable YANDEL BUSH MD Attending Unavailable HUGO BARRON., DR. RG Primary Care Unavailable MILLY HAWLEY (LIGHTING TECHNICIAN) Attending Unavailable JAMAL SCHNEIDER Referring Unavailable KONTAKJAMAL Referring Unavailable JAMAL SCHNEIDER Referring Unavailable JAMAL SCHNEIDER Referring Unavailable ELEAZAR, YANDEL Stafford Attending Unavailable MILLY [place] (LIGHTING TECHNICIAN) Referring Unavailable ELEAZAR, YANDEL Stafford Referring Unavailable ELEAZAR, YANDEL Stafford Referring Unavailable ELEAZAR, YANDEL Stafford Referring Unavailable ELEAZAR, YANDEL Stafford Referring Unavailable ELEAZAR, YANDEL Stafford Referring Unavailable ELEAZAR, YANDEL Stafford Attending Unavailable ELEAZARYANDEL Referring Unavailable ELEAZAR, YANDEL Stafford Referring Unavailable ELEAZAR, YANDEL Stafford Attending Unavailable ELEAZAR, YANDEL Stafford Referring Unavailable ELEAZAR, YANDEL Stafford Referring Unavailable ELEAZAR, YANDEL Stafford Referring Unavailable ELEAZAR, YANDEL Stafford Referring Unavailable ELEAZAR, YANDEL Stafford Attending Unavailable ELEAZAR, YANDEL Stafford Referring Unavailable ELEAZAR, YANDEL Stafford Referring Unavailable Sam SHERIDAN (LILA) Attending Unavailable YANDEL BUSH Referring Unavailable KRISTAN CORONA Attending Unavailable Sam SHERIDAN (LILA) Referring Unavailable KRISTAN CORONA Referring Unavailable KRISTAN CORONA Referring Unavailable KRISTAN CORONA Referring Unavailable HOLDEN ROSENBAUM Attending Unavailable HOLDEN ROSENBAUM Referring Unavailable MUAKKASSA, FARID ARRON Admitting Unavailable MUAKKASSA, FARID ARRON Attending Unavailable ONWUZULIKE, MELISSA Consulting Unavailable ONWUZULIKE, MELISSA Admitting Unavailable ONWUZULIKE, MELISSA Consulting Unavailable CHUCK DELGADO Attending Unavailable EVITA POTTS ([facility]) Referring Unavailable ONWUZULIKE, MELISSA Attending Unavailable ONWUZULIKE, MELISSA Referring Unavailable HOLDEN ROSENBAUM Attending Unavailable HOLDEN ROSENBAUM Referring Unavailable Yandel Bush MD Primary Care Unavailable Yandel Bush MD Primary Care Unavailable MUAKKASSA, FARID F Admitting Unavailable MUAKKASSA, FARID F Attending Unavailable ONWUZULIKE, MELISSA Consulting Unavailable ONWUZULIKE, MELISSA Admitting Unavailable Yandel Bush MD Primary Care Unavailable ONMaileUZAARONKE, MELISSA Consulting Unavailable CHUCK DELGADO Attending Unavailable RAUL MIKE Attending Unavailable [facility] Referring Unavailable Yandel Bush MD Primary Care Unavailable EVITA POTTS ([facility]) Referring Unavailable Yandel Bush MD Primary Care Unavailable ONESTEFANYKE, MELISSA Attending Unavailable CHANTALE, MELISSA Referring Unavailable Yandel Bush MD Primary Care Unavailable PROBLEMS PROBLEMS DATE TYPE CONDITION / CODE ATTENDING STATUS SOURCE 10/09/2018 Active Fatty (change of) NA Active [facility] liver, not [facility] elsewhere [place] classified / Repository K76.0(ICD-10) 12/18/2018 Active Splenomegaly, not NA Active [facility] elsewhere [facility] classified / [place] R16.1(ICD-10) Repository 12/04/2018 Active Other pancytopenia NA Active [facility] / D61.818(ICD-10) Clinic [facility] [place] Repository 12/03/2018 Active Hypokalemia / NA Active [facility] E87.6(ICD-10) [facility] Main [place] Repository 10/20/2018 Active Anemia, unspecified NA Active [facility] / D64.9(ICD-10) Clinic [facility] [place] Repository 12/01/2018 Active Nontraumatic NA Active [facility] subarachnoid [facility] Other hemorrhage, [place] unspecified / Repository I60.9(ICD-10) 11/21/2018 Active Bipolar disorder, NA Active [facility] unspecified / [facility] F31.9(ICD-10) [place] Repository 11/21/2018 Active Dysuria / NA Active [facility] R30.0(ICD-10) [facility] Main [place] Repository 10/13/2018 Active Traumatic subdural MUAKKASSA, 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 Clinic Other loss of [place] consciousness of Repository unspecified duration, initial encounter / S06.5X9A(ICD-10) 10/09/2018 Active Thrombocytopenia, NA Active [facility] unspecified / [facility] D69.6(ICD-10) [place] Repository 10/09/2018 Active Hypercalcemia / NA Active [facility] E83.52(ICD-10) Clinic Main [place] Repository 09/05/2018 Principle Fatty (change of) HLIVKO, Active Doe Butler Diagnosis liver, not BETH BARRON [facility] classified / Repository K760(ICD-10) 07/24/2018 Admitting Hepatomegaly with HLIVKO, Active Doe Pomtomas Diagnosis splenomegaly, not BETH BARRON [facility] classified / Repository R162(ICD-10) 07/24/2018 Principle Hepatomegaly with HLIVKO, Active Doe Pomerene Diagnosis splenomegaly, not BETH BARRON [facility] classified / Repository R162(ICD-10) 07/08/2018 Active Unknown / YANDEL BUHS Active [facility] UNK(Unknown) [facility] [place] Repository 03/04/2012 Active Paroxysmal atrial NA Active [facility] fibrillation / [facility] I48.0(ICD-10) [place] Repository 05/21/2018 Unknown L40.59 - Other Abigail Myers Active [place] [facility] arthropathy / Hospital L40.59(ICD-10) Repository 04/11/2018 Active Cardiac murmur, NA Active [facility] unspecified / [facility] R01.1(ICD-10) [place] Repository 04/10/2018 Active Chest pain, HOLDEN ROSENBAUM Active [facility] unspecified / E Clinic Other R07.9(ICD-10) [place] Repository 04/10/2018 Admitting Unknown / HOLDEN ROSENBAUM Active [facility] UNK(Unknown) [facility] Repository 04/04/2018 Active Iron deficiency NA Active [facility] anemia, unspecified Clinic Main / D50.9(ICD-10) [place] Repository 04/01/2018 Active Other retirement NA Active [facility] (current) drug [facility] therapy / [place] Z79.899(ICD-10) Repository 12/27/2017 Active Encounter for NA Active [facility] screening mammogram [facility] for malignant [place] neoplasm of breast Repository / Z12.31(ICD-10) 12/27/2017 Active Type 2 diabetes NA Active [facility] mellitus 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 [place] neuropathy, Repository unspecified / E11.40(ICD-10) 12/27/2017 Active Encounter for NA Active [facility] screening for other [facility] disorder / [place] Z13.89(ICD-10) Repository 12/27/2017 Active Abnormal results of NA Active [facility] liver function [facility] studies / [place] R94.5(ICD-10) Repository 12/27/2017 Active Type 2 diabetes NA Active [facility] mellitus without [facility] complications / [place] E11.9(ICD-10) Repository PROCEDURES PROCEDURES No Procedure Records FoundRESULTS RESULTS NM LIVER SPECT Observed: 12/18/2018 Status: F Source: [facility] 1:30 PM [facility] REPOSITORY * * *Final Report* * * DATE OF EXAM: Dec 18 2018 1:30PM SOO 0028 - NM LIVER SPECT / PROCEDURE REASON: multiple diagnoses * * * * Physician Interpretation * * * * LIVER-SPLEEN SCAN/ SPECT- (12/18/2018): HISTORY: Thrombocytopenia TECHNIQUE: 5.2 mCi Tc-99m sulfur colloid IV. Planar and SPECT imaging of the abdomen was performed. COMPARISON: None RESULT: There is homogeneous distribution of radiopharmaceutical in the liver and spleen, without focal abnormalities identified. The liver is enlarged and measures approximately 20 cm in the right midclavicular line. The spleen is enlarged and measures approximately 21.8 cm in greatest dimension. There is colloid shift, suggestive of hypersplenism. IMPRESSION: HEPATOSPLENOMEGALY. FINDINGS SUGGESTIVE OF HYPERSPLENISM. Stitcher Special Machine: PSCB Transcribe Date/Time: Dec 18 2018 2:15P Dictated by : KURTIS ADAMS MD This examination was interpreted and the report reviewed and electronically signed by: KURTIS ADAMS MD on Dec 18 2018 3:30PM EST [id number] [id number] Observed: 12/18/2018 Status: COMPLETED Source: [place] 12:55 PM [facility] REPOSITORY HNO ID: [id number] Author: Leslye HuangAurora [employer] Service: (none) Author Type: (none) Type: Progress Notes Filed: 12/18/2018 12:56 PM Note Text: RADIOLOGY SERVICE PROGRESS NOTE SERVICE DATE: 12/18/2018 SERVICE TIME: 12:55 PM PATIENT IDENTITY VERIFICATION COMPLETED USING TWO (2) METHODS: Patient confirmed name and Date of verbally. PATIENT GENDER DATA: .female : No ALLERGIES: Reviewed and unchanged MEDICATIONS REVIEWED: Yes PATIENT RELEVANT IMPLANT DATA REVIEWED: Not Applicable CREATININE: Creatinine Date Value Ref Range Status 12/09/2018 0.66 0.58 - 0.96 mg/dL Final 12/03/2018 0.61 0.58 - 0.96 mg/dL Final 11/29/2018 0.62 0.58 - 0.96 mg/dL Final eGFR-All Other Races Date Value Ref Range Status 12/09/2018 >60 . Final Comment: eGFR (Estimated GFR) Units of measure: [...] eGFR may not accurately reflect actual GFR. eGFR- Date Value Ref Range Status 12/09/2018 >60 Final P.O.C.T. RESULTS: N/A December 18, [address] PERFORMED: No IV SITE: Ambulatory: NM only - direct IV injection in the Right antecubital site POST EXAM PIV STATUS: Discontinued PROCEDURE TYPE: NM INJECT: Liver/ Spleen SPECT. 5.2 mCi Tc99m SULFUR COLLOID . No other medications given.. ADMINISTRATION TIME: 12:40 PATIENT DISCHARGED TO: Ambulatory patient, left [place] department area. A Diagnostic radioactive procedure has taken place, with no further precautions necessary other than routine body substance precautions. More information regarding radiation safety can be found using this link: [email or web address] SIGNATURE: Leslye Metz PATIENT NAME: Elli Guerrero DATE: December 18, 2018 TIME: 12:55 PM PAGER/CONTACT #: BASIC METABOLIC Collected: 12/12/2018 Status: F Source: SHARI PROFILE (BMP) 2:25 PM [facility] REPOSITORY TYPE CODE TESTS RESULT OUT OF RANGE REFERENCE UNITS LAB L501.0100 74-106 mg/dL High GLU 176 Result Comment: Fasting Glucose result greater than or equal to 126 mg/dL suggests DIABETES MELLITUS per A.D.A. criteria. Please note revised GLUCOSE reference range effective 2017. LAB L501.1000 7-18 mg/dL Normal BUN 10 LAB L501.1100 0.55-1.02 mg/dL Normal CREAT,SERUM 0.71 Result Comment: The validity of the calculated GFR AND GFRAA in patients over 70 years has not been determined. Clinical correlation is essential. LAB L501.1110 >60 mL/min Normal EST GFR 90 Result Comment: Non- GFR Calc LAB L501.1115 >60 mL/min Normal EST GFR - AA 108 Result Comment: GFR Calc LAB L501.1300 10-20 RATIO Normal BUN/CRE 14.1 LAB L501.2200 8.5-10.1 mg/dL CA Normal 9.8 LAB L501.5300 136-145 mmol/L NA Normal 138 LAB L501.5600 3.5-5.1 mmol/L K Normal 3.8 LAB L501.5900 98-107 mmol/L CL Normal 106 LAB L501.6100 21.0-32.0 mmol/L Normal CO2 25.0 LAB L501.6200 5-15 Normal GAP 7 Performed By: #### L500.2500, L501.9520 #### [facility] [address] [place], [place], [id number] THYROID STIM HORMONE Collected: 12/12/2018 Status: F Source: SHARI (TSH) 2:25 PM [facility] REPOSITORY TYPE CODE TESTS RESULT OUT OF RANGE REFERENCE UNITS LAB L501.9520 0.358-3.74 uIU/mL Normal TSH 1.00 Performed By: #### L500.2500, L501.9520 #### [facility] [address] [place], [address] LITHIUM Collected: 12/12/2018 Status: F Source: SHARI 2:25 PM [facility] REPOSITORY Order Comment: Date of Last Dose: 12/12/18 Time of Last Dose: 0000 TYPE CODE TESTS RESULT OUT OF RANGE REFERENCE UNITS LAB L501.9060 0.60-1.20 mmol/L Normal LI 0.80 Performed By: #### L501.9060 #### [facility] [address] [place], [address] COMP METABOLIC PANEL Collected: 12/09/2018 Status: F Source: [place] 3:41 PM [facility] REPOSITORY TYPE CODE TESTS RESULT OUT OF REFERENCE UNITS RANGE LAB TP 6.3-8.0 g/dL Protein, Total 7.3 LAB ALB 3.9-4.9 g/dL Albumin 4.2 LAB CA 8.5-10.2 mg/dL Calcium, Total 10.1 LAB TBIL 0.2-1.3 mg/dL Bilirubin, Total 0.6 LAB ALKP 34-123 U/L Alkaline High Phosphatase 140 LAB AST 13-35 U/L AST High 45 LAB GLU 74-99 mg/dL Glucose High 150 LAB BUN 7-21 mg/dL BUN 12 LAB CRET 0.58-0.96 mg/dL Creatinine 0.66 LAB NA 136-144 mmol/L Sodium 138 LAB K 3.7-5.1 mmol/L Potassium 4.0 LAB CL 97-105 mmol/L Chloride 105 LAB CO2 22-30 mmol/L CO2 25 LAB AGAP mmol/L Anion Gap 8 LAB ALT 7-38 U/L ALT 27 LAB GFRAA eGFR- >60 Amer. LAB GFRNAA . eGFR-All Other Races >60 [...] eGFR may not accurately reflect actual GFR. LD Collected: 12/09/2018 Status: F Source: [facility] 3:41 PM [facility] REPOSITORY TYPE CODE TESTS RESULT OUT OF RANGE REFERENCE UNITS LAB LD 135-214 U/L LD 173 MATY BY IFA Collected: 12/09/2018 Status: F Source: [place] 3:40 PM [facility] REPOSITORY TYPE CODE TESTS RESULT OUT OF RANGE REFERENCE UNITS LAB ANASC Negative Abnormal Alert MATY Positive Result Comment: Normal range : negative at <1:80 serum dilution. LAB REKHA Negative Abnormal 1:80 Alert MATY Titer LAB ANAP MATY Pattern Atypical speckled Performed By: #### ANAIFS, ANABLL #### [place] [id number] [place] [address] MATY IFA TITER BILL Collected: 12/09/2018 Status: F Source: [place] 3:40 PM [facility] REPOSITORY TYPE CODE TESTS RESULT OUT OF REFERENCE UNITS RANGE LAB ANABLL MATY Billed for IFA Titer services Bill performed Performed By: #### ANAIFS, ANABLL #### [facility] [address] [place] [address] RETICULOCYTE Collected: 12/09/2018 Status: F Source: [place] 3:39 PM [facility] REPOSITORY TYPE CODE TESTS RESULT OUT OF REFERENCE UNITS RANGE LAB RETC 0.4-2.0 % High Retic% 2.3 LAB ABRET 0.0180-0.1000 M/uL Abs Retic 0.083 Performed By: #### RETIC, HAPTO, AHCV #### [place] [address] HAPTOGLOBIN Collected: 12/09/2018 Status: F Source: [place] 3:39 PM [facility] REPOSITORY TYPE CODE TESTS RESULT OUT OF REFERENCE UNITS RANGE LAB HAPTO 31-238 mg/dL Haptoglobin 64 Performed By: #### RETIC, HAPTO, AHCV #### [facility] [address] [place] [address] HEPATITIS C AB IA Collected: 12/09/2018 Status: F Source: [place] 3:39 PM [facility] REPOSITORY TYPE CODE TESTS RESULT OUT OF REFERENCE UNITS RANGE LAB AHCV Negative Hepatitis C Ab Negative IA Performed By: #### RETIC, HAPTO, AHCV #### [facility] [address] [place] [place], [place] [address] STAFF REV W CBCDIF Collected: 12/09/2018 Status: F Source: [place] 3:39 PM [facility] REPOSITORY TYPE CODE TESTS RESULT OUT OF REFERENCE UNITS RANGE LAB WBC 3.70-11.00 k/uL WBC 3.86 LAB RBC 3.90-5.20 m/uL Low RBC 3.56 LAB HGB 11.5-15.5 g/dL Low Hemoglobin 10.5 LAB HCT 36.0-46.0 % Low Hematocrit 32.8 LAB MCV 80.0-100.0 fL MCV 92.1 LAB MCH 26.0-34.0 pG MCH 29.5 LAB MCHC 30.5-36.0 g/dL MCHC 32.0 LAB RDWCV 11.5-15.0 % RDW-CV High 15.6 LAB PLTCT 150-400 k/uL Low Platelet Count 90 Result Comment: No clot detected. LAB MPV 9.0-12.7 fL MPV 10.0 LAB ANEUT % Neut% 65.7 LAB AANEUT 1.45-7.50 k/uL Abs Neut 2.54 LAB ALYMP % Lymph% 26.2 LAB AALYMP 1.00-4.00 k/uL Abs Lymph 1.01 LAB AMONO % [place]% 5.2 LAB AAMONO <0.87 k/uL Abs [place] 0.20 LAB AEOS % Eosin% 2.6 LAB AAEOS <0.46 k/uL Abs Eosin 0.10 LAB ABASO % Baso% 0.3 LAB AABASO <0.11 k/uL Abs Baso <0.03 LAB AUNRBC 0 /100 WBC NRBCs 0.0 LAB ABNRBC <0.01 k/uL Absolute nRBC <0.01 LAB DTYP DTYPE Auto Diff LAB RBCMOR Red Cell Morph SEE COMMENT Result Comment: Anisocytosis LAB DIFCOM Diff SEE Comments COMMENT Result Comment: Platelet estimate decreased See Staff Review LAB SREVW Staff SEE Review COMMENT Result Comment: Normocytic Anemia Without Polychromasia Thrombocytopenia LAB SRPATH Pathologist Reviewed by Drew Gant MD ([id number]) Performed By: #### STREV #### [facility] [address] [place] [address] SHARI CBC AND DIFF Collected: 12/09/2018 Status: F Source: [place] 3:38 PM [facility] REPOSITORY TYPE CODE TESTS RESULT OUT OF REFERENCE UNITS RANGE LAB WWBC 3.70-11.00 k/uL Shari WBC 4.04 LAB WRBC 3.90-5.20 m/uL Low Shari RBC 3.61 LAB WHGB 11.5-15.5 g/dL Low [place] Hemoglobin 10.7 LAB WHCT 36.0-46.0 % Low [facility]ari Hematocrit 33.3 LAB WMCV 80.0-100.0 fL [facility] MCV 92.2 LAB WMCH 26.0-34.0 pg [facility]ari MCH 29.6 LAB WMCHC 30.5-36.0 g/dL [facility] MCHC 32.1 LAB WRDW 11.5-15.0 % [facility]ari High RDW 15.8 LAB WPLT 150-400 k/uL Low Shari Platelet Cnt 92 LAB WMPV 9.0-12.7 fL [facility]ari MPV 9.6 Result Comment: Test performed at: [facility], [address] [place] [address] Rd[address] [place] [address]. LAB WNEUT % [facility] Neut% 64.7 LAB WLYMP % [facility] Lymp% 27.0 LAB WMONOC % [place]% 5.9 LAB WEOS % [place] Eos% 2.2 LAB WBASO % [place] Baso% 0.2 LAB WANEUT 1.45-7.50 k/uL [place] Abs Neut 2.61 LAB WALYMP 1.00-4.00 k/uL [facility] Abs Lymp 1.09 LAB WAMONO <0.87 k/uL [facility] Abs [place] 0.24 LAB WAEOS <0.46 k/uL [facility] Abs Eos 0.09 LAB WABASO <0.11 k/uL [place] Abs Baso <0.03 SMOOTH MUSCLE AB Collected: 12/09/2018 Status: F Source: [place] SCR 3:38 PM [facility] REPOSITORY TYPE CODE TESTS RESULT OUT OF RANGE REFERENCE UNITS LAB SMTHSC Negative Abnormal Smooth Positive Alert Muscle Ab Scr Result Comment: Normal range : negative at a 1:20 serum dilution. Performed By: #### NATASHATHS, IFESC #### [facility] [address] [place], [place] [address] SANDY SCREEN, SERUM Collected: 12/09/2018 Status: F Source: [place] 3:38 PM [facility] REPOSITORY TYPE CODE TESTS RESULT OUT OF REFERENCE UNITS RANGE LAB MPAR No M protein is identified. No MPA M protein is Result identified. LAB MPAST[facility] Staff Reviewed by Review Clair Coon MD ([id number]) Performed By: #### MICHEL, IFESC #### [facility] [address] [place], [place] [address] PROGRESS Observed: 12/09/2018 Status: COMPLETED Source: [facility] 3:06 PM [facility] REPOSITORY HNO ID: [id number] Author: Kristan Corona Service: (none) Author Type: Physician Type: Progress Notes Filed: 12/10/2018 8:14 AM Note Text: Hematology and Medical Oncology PATIENT NAME: Elli Guerrero. CLINIC NO: [id number]. ATTENDING PHYSICIAN: Kristan Corona MD. DATE OF SERVICE:12/09/2018. DIAGNOSIS: Pancytopenia Consultation requested by Dr. Bush for an opinion regarding Pancytopenia. My final recommendations will be communicated back to the requesting physician by way of shared Medical record or letter to requesting physician via US mail. PERFORMANCE STATUS:80% HPI:58-year-old female with history of diabetes mellitus and manic-depressive disorder who also has history of lupus and possible autoimmune hepatitis. Patient was recently admitted to the hospital for electrolyte abnormality and recent subdural hematoma which has resolved. In the last 2 months, she developed progressive pancytopenia. Although iron study, vitamin B12 and folate acid level were normal. She also has heme positive stool. She had an ultrasound-guided of her abdomen last summer which showed diffuse fatty infiltration of the liver and splenomegaly. She denies history of alcohol use. No blood transfusions since 2002 after her total hip replacement surgery. She has no history of hepatitis and no HIV risks. She is and has no HIV risk factors. Patient denies history of jaundice, bloating or ascites. She had previously an elevated ammonia level. Patient has no fever chills night sweats. no history of stomatitis or diarrhea. No frequent or recurrent infection. She notice increased fatigue as well as progressive weight loss in the last 3 months. She is scheduled to see her septic tank servicer later this month in [place]. MEDICATIONS: Current Outpatient Prescriptions: lithium carbonate ER 450 mg CR tablet Take one tablet by mouth in the morning AND two tablets at bedtime. hydroxychloroquine (PLAQUENIL) 200 mg tablet Take 200 mg by mouth twice daily. Hydrochlorothiazide 12.5 mg capsule Take 12.5 mg by mouth once daily. pantoprazole DR (PROTONIX) 40 mg tablet TAKE ONE TABLET BY MOUTH ONCE DAILY FARXIGA 10 mg tab TAKE ONE TABLET BY MOUTH DAILY potassium chloride (KLOR-CON) 20 mEq packet Take 1 Packet by mouth twice daily. No current facility-administered medications for this visit. . ALLERGIES:ALLERGIES No Known Allergies. PAST MEDICAL HISTORY: PAST MEDICAL HISTORY Diagnosis Date - Anemia - Bipolar affect, depressed (HCC) - Diabetes mellitus - Dyslipidemia - Elevated liver enzymes - Esophageal reflux - Fatty liver - GERD (gastroesophageal reflux disease) - Hypertension - Leukocytosis, unspecified - Obesity - Obstructive sleep apnea (adult) (pediatric) - PAF (paroxysmal atrial fibrillation) ([facility]) - Personal history of colonic polyps - Smoking - Stroke ([facility]) - Urge incontinence 02/01/2017 . PAST SURGICAL HISTORY: PAST SURGICAL HISTORY Procedure Laterality Date - APPENDECTOMY 1976 - COLONOSCOP W/ OR W/O [facility] SPEC 02/13/2017 Colonoscopy mac - COLONOSCOPY 04/17/2011 X6. TA in 2008 - EGD W/O OR W/BRUSH/WASH 06/09/14 EGD - EGD W/O OR W/BRUSH/WASH 02/13/2017 EGD mac - FOOT RIGHT OP SURGERY 1992 rebuilt bottom of right foot - HEART CATHETERIZATION - LIGATE FALLOPIAN TUBE 1982 - REMOVAL OF GALLBLADDER 1977 - SCREENING COLONOSCOPY, NOT HIGH RISK PT 04/17/2011 next 04/17/16, Dr. Dimitris Felix - TOTAL ABDOM HYSTERECTOMY Hysterectomy, LEONILA - TOTAL HIP REPLACEMENT bilateral 2007 right hip, 2010 lef t hip . FAMILY HISTORY: FAMILY HISTORY Problem Relation Age of Onset - Diabetes Mother - Hypertension Mother - Cancer Father lung cancer - Diabetes Father - Heart Father NC x 2 - Hypertension Father - Diabetes Maternal Grandmother - Diabetes Maternal Grandfather - Diabetes Paternal Grandmother - Hypertension Paternal Grandmother - Diabetes Paternal Grandfather - Heart Paternal Grandfather NC . SOCIAL HISTORY:Social History Marital status: Spouse name: Years of education: Number of children: 3 Social History Main Topics Smoking status: Former Smoker Packs/day: 1.00 Years: 9.00 Quit date: 01/08/1990 Smokeless tobacco: Former User Alcohol use: Yes Comment: extremely rare Drug use: No Sexual activity: No Other Topics Concern Service No Blood Transfusions Yes Seat Belt Yes Self-Exams No . REVIEW OF SYSTEMS: CONSTITUTIONAL: No fevers, chills, nightsweats, + unintended weight loss + fatigue HEENT: Denies frequent or severe heaches, nasal congestion/sinus symptoms, problematic allergy problems. EYES: No diplopia or blurry vision. CARDIOVASCULAR: No chest pain, dyspnea, palpitations, orthopnea, PND, ankle edema. PULM: No dyspnea, unexplained cough. GI: No dysphagia/odynophagia, problematic reflux, constipation, diarrhea, changes in stool habits, hematochezia, melena. : No new urinary complaints, including dysuria, gross hematuria or pyuria. NEURO: No new balance problems, peripheral weakness/paresthesias or numbness of concern. MUSC-SKEL: No new joint pain, swelling, or erythema. PSY: No concerns regarding depression, anxiety or panic. INTEGUMENTARY: No new skin changes (rash, new or changing mole, new growth) PHYSICAL EXAMINATION: 58-year-old female in no acute distress BP 107/57 Pulse 72 Temp (Src) 99.2 (Oral) Ht 5' 4 (1.63m) Wt 235 lb (106.6kg) BMI 40.32 kg/(m2). HEENT: Head is normocephalic, atraumatic. Sclerae white, conjunctivae pink. PEERL. EOMs are intact. Oropharynx is benign. complexion pale LYMPHATICS: There is no palpable adenopathy in the neck, supraclavicular region, axillae, or groin. LUNGS: Lungs are clear to percussion and auscultation. HEART: Heart is normal without murmurs, gallops, or rubs. ABDOMEN: Obese Soft and nontender with Hepatosplenoomegaly. No ascites can be palpated. EXTREMITIES: Are without edema. no petechiae or ecchymosis NEUROLOGIC: Exam is physiologic LABORATORY DATA: Component Latest Ref Rng AND Units 12/09/2018 WBC, [place] 3.70 - 11.00 k/uL 4.04 RBC, [place] 3.90 - 5.20 m/uL 3.61 (L) Hemoglobin, [place] 11.5 - 15.5 g/dL 10.7 (L) Hematocrit, Shari 36.0 - 46.0 % 33.3 (L) MCV, [place] 80.0 - 100.0 fL 92.2 MCH, [place] 26.0 - 34.0 pg 29.6 MCHC, Shari 30.5 - 36.0 g/dL 32.1 RDW, [place]ari 11.5 - 15.0 % 15.8 (H) Platelet Cnt, Shari 150 - 400 k/uL 92 (L) MPV, [place] 9.0 - 12.7 fL 9.6 Neut%, Shari % 64.7 Lymp%, [place] % 27.0 [place]%, Shari % 5.9 Eos%, Shari % 2.2 Baso%, Shari % 0.2 Abs Neut, Shari 1.45 - 7.50 k/uL 2.61 Abs Lymp, Shari 1.00 - 4.00 k/uL 1.09 Abs [place], [place] <0.87 k/uL 0.24 Abs Eos, Shari <0.46 k/uL 0.09 Abs Baso, [place] <0.11 k/uL <0.03 Component Latest Ref Rng AND Units 12/03/2018 Iron 41 - 186 ug/dL 50 TIBC 232 - 386 ug/dL 326 Transferrin Saturation 15 - 57 % 15 Vitamin B12 232 - 1,245 pg/mL 544 Folate >4.7 ng/mL 4.8 Ferritin 14.7 - 205.1 ng/mL 135.6 Component Latest Ref Rng AND Units 12/03/2018 Occult Blood, Stool Negative Positive (A) Component Latest Ref Rng AND Units 12/09/2018 Protein, Total 6.3 - 8.0 g/dL 7.3 Albumin 3.9 - 4.9 g/dL 4.2 Calcium 8.5 - 10.2 mg/dL 10.1 Bilirubin, Total 0.2 - 1.3 mg/dL 0.6 Alkaline Phosphatase 34 - 123 U/L 140 (H) AST 13 - 35 U/L 45 (H) Glucose 74 - 99 mg/dL 150 (H) BUN 7 - 21 mg/dL 12 Creatinine 0.58 - 0.96 mg/dL 0.66 Sodium 136 - 144 mmol/L 138 Potassium 3.7 - 5.1 mmol/L 4.0 Chloride 97 - 105 mmol/L 105 CO2 22 - 30 mmol/L 25 Anion Gap mmol/L 8 ALT 7 - 38 U/L 27 eGFR- >60 eGFR-All Other Races . >60 LD 135 - 214 U/L 173 ASSESSMENT: 58-year-old obese female with pancytopenia secondary to chronic liver disease AND hypersplenism. Patient has hepatosplenomegaly on exam. She also has heme positive stool last week. Hepatosplenomegaly secondary to fatty liver disease vs autoimmune hepatitis vs CHARISSA cirrhosis with portal hypertension? Anemia of chronic disease, and heme positive stool PLAN: - additional tests requested: CMP, LDH, immunofixation, reticulocyte count, and haptoglobin for evaluation of pancytopenia - check MATY smooth muscle antibody, hepatitis C antibody today for chronic hepatitis. - NM liver/spleen scan at [facility] for cirrhosis and portal hypertension? - see GI for EGD evaluation for esophageal varices and heme positive stool next week - avoid aspirin because of thrombocytopenia and intracranial AND GI bleeding. I spent 60 minutes in the visit, with more than 50% of the total [id number] time of the visit in counseling / coordination of care. The patient and family were allowed enough time to ask questions. All questions were answered to their satisfaction. Patient and family verbalized understanding of pancytopenia, possible liver disease and agreed to further evaluation. - repeat CBC office visit in 1 month. Kristan Corona MD. ELECTRONICALLY SIGNED Cc: LILA Mari Dr. CNOVSP Observed: 12/09/2018 Status: COMPLETED Source: [place] 3:00 PM [facility] REPOSITORY Visit (SP) Office (HEMAWS) ELLI GUERRERO ([id number]) 1960 F Date Time Provider Department 12/09/18 3:00 PM KRISTAN CORONA During your visit today, we recorded the following information about you: Temperature Pulse Blood pressure Weight 99.2 degrees 72/minute 107/57 106.6 kg Height 1.626 m Kristan Corona MD 12/10/2018 8:14 AM Signed Hematology and Medical Oncology PATIENT NAME: Elli Guerrero. CLINIC NO: [id number]. ATTENDING PHYSICIAN: Kristan Corona MD. DATE OF SERVICE:12/09/2018. DIAGNOSIS: Pancytopenia Consultation requested by Dr. Bush for an opinion regarding Pancytopenia. My final recommendations will be communicated back to the requesting physician by way of shared Medical record or letter to requesting physician via US mail. PERFORMANCE STATUS:80% HPI:58-year-old female with history of diabetes mellitus and manic-depressive disorder who also has history of lupus and possible autoimmune hepatitis. Patient was recently admitted to the hospital for electrolyte abnormality and recent subdural hematoma which has resolved. In the last 2 months, she developed progressive pancytopenia. Although iron study, vitamin B12 and folate acid level were normal. She also has heme positive stool. She had an ultrasound-guided of her abdomen last summer which showed diffuse fatty infiltration of the liver and splenomegaly. She denies history of alcohol use. No blood transfusions since 2002 after her total hip replacement surgery. She has no history of hepatitis and no HIV risks. She is and has no HIV risk factors. Patient denies history of jaundice, bloating or ascites. She had previously an elevated ammonia level. Patient has no fever chills night sweats. no history of stomatitis or diarrhea. No frequent or recurrent infection. She notice increased fatigue as well as progressive weight loss in the last 3 months. She is scheduled to see her septic tank servicer later this month in [place]. MEDICATIONS: Current Outpatient Prescriptions: lithium carbonate ER 450 mg CR tablet Take one tablet by mouth in the morning AND two tablets at bedtime. hydroxychloroquine (PLAQUENIL) 200 mg tablet Take 200 mg by mouth twice daily. Hydrochlorothiazide 12.5 mg capsule Take 12.5 mg by mouth once daily. pantoprazole DR (PROTONIX) 40 mg tablet TAKE ONE TABLET BY MOUTH ONCE DAILY FARXIGA 10 mg tab TAKE ONE TABLET BY MOUTH DAILY potassium chloride (KLOR-CON) 20 mEq packet Take 1 Packet by mouth twice daily. No current facility-administered medications for this visit. . ALLERGIES:ALLERGIES No Known Allergies. PAST MEDICAL HISTORY: PAST MEDICAL HISTORY Diagnosis Date - Anemia [...] - Stroke (HCC) - Urge incontinence 02/01/2017 . PAST SURGICAL HISTORY: PAST SURGICAL HISTORY Procedure Laterality Date - [...] RISK PT 04/17/2011 next 04/17/16, Dr. Dimitris Carlson [place] - TOTAL ABDOM HYSTERECTOMY Hysterectomy, LEONILA - TOTAL HIP REPLACEMENT bilateral 2007 right hip, 2010 lef t hip . FAMILY HISTORY: FAMILY HISTORY Problem Relation Age of Onset - Diabetes Mother - Hypertension Mother - Cancer Father lung cancer - Diabetes Father - Heart Father NC x 2 - Hypertension Father - Diabetes Maternal Grandmother - Diabetes Maternal Grandfather - Diabetes Paternal Grandmother - Hypertension Paternal Grandmother - Diabetes Paternal Grandfather - Heart Paternal Grandfather NC . SOCIAL HISTORY:Social History Marital status: Spouse name: Years of education: Number of children: 3 Social History Main Topics Smoking status: Former Smoker Packs/day: 1.00 Years: 9.00 Quit date: 01/08/1990 Smokeless tobacco: Former User Alcohol use: Yes Comment: extremely rare Drug use: No Sexual activity: No Other Topics Concern Service No Blood Transfusions Yes Seat Belt Yes Self-Exams No . REVIEW OF SYSTEMS: CONSTITUTIONAL: No fevers, chills, nightsweats, + unintended weight loss + fatigue HEENT: Denies frequent or severe heaches, nasal congestion/sinus symptoms, problematic allergy problems. EYES: No diplopia or blurry vision. CARDIOVASCULAR: No chest pain, dyspnea, palpitations, orthopnea, PND, ankle edema. PULM: No dyspnea, unexplained cough. GI: No dysphagia/odynophagia, problematic reflux, constipation, diarrhea, changes in stool habits, hematochezia, melena. : No new urinary complaints, including dysuria, gross hematuria or pyuria. NEURO: No new balance problems, peripheral weakness/paresthesias or numbness of concern. MUSC-SKEL: No new joint pain, swelling, or erythema. PSY: No concerns regarding depression, anxiety or panic. INTEGUMENTARY: No new skin changes (rash, new or changing mole, new growth) PHYSICAL EXAMINATION: 58-year-old female in no acute distress BP 107/57 Pulse 72 Temp (Src) 99.2 (Oral) Ht 5' 4 (1.63m) Wt 235 lb (106.6kg) BMI 40.32 kg/(m2). HEENT: Head is normocephalic, atraumatic. Sclerae white, conjunctivae pink. PEERL. EOMs are intact. Oropharynx is benign. complexion pale LYMPHATICS: There is no palpable adenopathy in the neck, supraclavicular region, axillae, or groin. LUNGS: Lungs are clear to percussion and auscultation. HEART: Heart is normal without murmurs, gallops, or rubs. ABDOMEN: Obese Soft and nontender with Hepatosplenoomegaly. No ascites can be palpated. EXTREMITIES: Are without edema. no petechiae or ecchymosis NEUROLOGIC: Exam is physiologic LABORATORY DATA: Component Latest Ref Rng AND Units 12/09/2018 WBC, Shari 3.70 - 11.00 k/uL 4.04 RBC, [place]ari 3.90 - 5.20 m/uL 3.61 (L) Hemoglobin, [place] 11.5 - 15.5 g/dL 10.7 (L) Hematocrit, [place] 36.0 - 46.0 % 33.3 (L) MCV, [place] 80.0 - 100.0 fL 92.2 MCH, [place] 26.0 - 34.0 pg 29.6 MCHC, [place]ari 30.5 - 36.0 g/dL 32.1 RDW, [place] 11.5 - 15.0 % 15.8 (H) Platelet Cnt, [place] 150 - 400 k/uL 92 (L) MPV, [place] 9.0 - 12.7 fL 9.6 Neut%, [place] % 64.7 Lymp%, Shari % 27.0 [place]%, [place] % 5.9 Eos%, [place] % 2.2 Baso%, Shari % 0.2 Abs Neut, [place]ari 1.45 - 7.50 k/uL 2.61 Abs Lymp, [place] 1.00 - 4.00 k/uL 1.09 Abs [place], [place] <0.87 k/uL 0.24 Abs Eos, [place] <0.46 k/uL 0.09 Abs Baso, [place] <0.11 k/uL <0.03 Component Latest Ref Rng AND Units 12/03/2018 Iron 41 - 186 ug/dL 50 TIBC 232 - 386 ug/dL 326 Transferrin Saturation 15 - 57 % 15 Vitamin B12 232 - 1,245 pg/mL 544 Folate >4.7 ng/mL 4.8 Ferritin 14.7 - 205.1 ng/mL 135.6 Component Latest Ref Rng AND Units 12/03/2018 Occult Blood, Stool Negative Positive (A) Component Latest Ref Rng AND Units 12/09/2018 Protein, Total 6.3 - 8.0 g/dL 7.3 Albumin 3.9 - 4.9 g/dL 4.2 Calcium 8.5 - 10.2 mg/dL 10.1 Bilirubin, Total 0.2 - 1.3 mg/dL 0.6 Alkaline Phosphatase 34 - 123 U/L 140 (H) AST 13 - 35 U/L 45 (H) Glucose 74 - 99 mg/dL 150 (H) BUN 7 - 21 mg/dL 12 Creatinine 0.58 - 0.96 mg/dL 0.66 Sodium 136 - 144 mmol/L 138 Potassium 3.7 - 5.1 mmol/L 4.0 Chloride 97 - 105 mmol/L 105 CO2 22 - 30 mmol/L 25 Anion Gap mmol/L 8 ALT 7 - 38 U/L 27 eGFR- >60 eGFR-All Other Races . >60 LD 135 - 214 U/L 173 ASSESSMENT: 58-year-old obese female with pancytopenia secondary to chronic liver disease AND hypersplenism. Patient has hepatosplenomegaly on exam. She also has heme positive stool last week. Hepatosplenomegaly secondary to fatty liver disease vs autoimmune hepatitis vs CHARISSA cirrhosis with portal hypertension? Anemia of chronic disease, and heme positive stool PLAN: - additional tests requested: CMP, LDH, immunofixation, reticulocyte count, and haptoglobin for evaluation of pancytopenia - check MATY smooth muscle antibody, hepatitis C antibody today for chronic hepatitis. - NM liver/spleen scan at [facility] for cirrhosis and portal hypertension? - see GI for EGD evaluation for esophageal varices and heme positive stool next week - avoid aspirin because of thrombocytopenia and intracranial AND GI bleeding. I spent 60 minutes in the visit, with more than 50% of the total [id number] time of the visit in counseling / coordination of care. The patient and family were allowed enough time to ask questions. All questions were answered to their satisfaction. Patient and family verbalized understanding of pancytopenia, possible liver disease and agreed to further evaluation. - repeat CBC office visit in 1 month. Kristan Corona MD. ELECTRONICALLY SIGNED Cc: LILA Mari Dr., MD 12/09/2018 3:46 PM Signed NO aspirin because of low platelet AND bleeding Referring Provider: Sam SHERIDAN (LILA) [[id number]] Allergies As of Date: 12/09/2018 (No Known Allergies) Date Reviewed: 12/09/2018 Reviewed by: Krystin Ortega - Fully Assessed Reason for Visit: New Patient Evaluation [154] Primary Visit Diagnosis:Pancytopenia (HCC) [D61.818] Other Visit Diagnosis:Hepatitis, autoimmune (HCC) [K75.4] Order(s):COMP METABOLIC PANEL [SQCMP] Order #: [id number] FUTURE LD LACTATE DEHYDRO [SQLD6] Order #: [id number] FUTURE RETIC COUNT [SQRETIC] Order #: [id number] FUTURE HAPTOGLOBIN BLD [SQHAPTO] Order #: [id number] FUTURE HEP C AB IA BLOOD [SQAHCV] Order #: [id number] FUTURE MATY BY IFA SCREEN [SQANAIFS] Order #: [id number] FUTURE IMMUNOFIXATION SCREEN, SERUM [SQIFESC] Order #: [id number] FUTURE SMOOTH MUSCLE AB SCR [SQSMTHS] Order #: [id number] FUTURE Level of Service: NEW PATIENT VISIT LEVEL 5 [[id number]] Disposition: Return in about 4 weeks (around 01/06/2019). LOS history recorded Follow-up and Disposition History Recorded Prescriptions as of 12/09/2018 Sig: LITHIUM CARBONATE ER 450 MG T* Take one tablet by mouth in t* HYDROXYCHLOROQUINE 200 MG TAB* Take 200 mg by mouth twice da* SERTRALINE 100 MG TABLET Take 1 1/2 tablets by mouth o* APREMILAST 30 MG TABLET Take 30 mg by mouth once lisa* POTASSIUM CHLORIDE 20 MEQ ORA* Take 1 Packet by mouth twice * HYDROCHLOROTHIAZIDE 12.5 MG C* Take 12.5 mg by mouth once da* PANTOPRAZOLE 40 MG TABLET,DEL* TAKE ONE TABLET BY MOUTH ONCE* FARXIGA 10 MG TABLET TAKE ONE TABLET BY MOUTH DAILY Problem List As Of Date 12/09/2018 Noted Resolved Type 2 diabetes mellitus (HCC) [E11.9] INVALID FOR* More... Essential (primary) hypertension [I10] INVALID FOR* More... Bipolar disorder, unspecified (HCC) [F31.9] INVALID FOR* More... Morbid obesity [E66.01] INVALID FOR* Fatty liver [K76.0] INVALID FOR* More... Paroxysmal atrial fibrillation (HCC) [I48.0] INVALID FOR* More... History of colonic polyps [Z86.010] INVALID FOR* Obstructive sleep apnea (adult) (pediatric) [G4*INVALID FOR* More... Gastro-esophageal reflux disease without esopha*INVALID FOR* More... Urge incontinence [N39.41] INVALID FOR* Positive MATY (antinuclear antibody) [R76.8] INVALID FOR* More... p [M32.9] INVALID FOR*04/03/2018 More... Iron deficiency anemia [D50.9] INVALID FOR* Anemia [D64.9] INVALID FOR* More... Obesity, Class III, BMI >= 40 [E66.01] INVALID FOR* ICH (intracerebral hemorrhage) (HCC) [I61.9] INVALID FOR* SDH (subdural hematoma) (HCC) [S06.5X9A] INVALID FOR* Midline shift of brain due to hematoma [G93.9] INVALID FOR* Fall [W19.XXXA] INVALID FOR* TBI (traumatic brain injury) (HCC) [S06.9X9A] INVALID FOR* Epidural hematoma (HCC) [S06.4X9A] INVALID FOR* More... Major depressive disorder, single episode, unsp*INVALID FOR* More... Vaginal bleeding [N93.9] INVALID FOR*12/02/2018 More... Pancytopenia (HCC) [D61.818] INVALID FOR* Heme + stool [R19.5] INVALID FOR* Other instructions from your clinician: NO aspirin because of low platelet AND bleeding Encounter Status:Closed by KRISTAN CORONA MD on 12/10/18 CBC AND DIFFERENTIAL Collected: 12/03/2018 Status: F Source: [facility] 11:18 AM [facility] REPOSITORY TYPE CODE TESTS RESULT OUT OF REFERENCE UNITS RANGE LAB WBC 3.70-11.00 k/uL Low WBC 2.43 LAB RBC 3.90-5.20 m/uL Low RBC 3.53 LAB HGB 11.5-15.5 g/dL Low Hemoglobin 10.4 LAB HCT 36.0-46.0 % Low Hematocrit 33.8 LAB MCV 80.0-100.0 fL MCV 95.8 LAB MCH 26.0-34.0 pG MCH 29.5 LAB MCHC 30.5-36.0 g/dL MCHC 30.8 LAB RDWCV 11.5-15.0 % RDW-CV High 16.9 LAB PLTCT 150-400 k/uL Low Platelet Count 93 Result Comment: No clot detected. LAB MPV 9.0-12.7 fL MPV 10.0 LAB ANEUT % Neut% 54.3 LAB AANEUT 1.45-7.50 k/uL Abs Low Neut 1.31 LAB ALYMP % Lymph% 36.6 LAB AALYMP 1.00-4.00 k/uL Abs Low Lymph 0.89 LAB AMONO % [place]% 5.8 LAB AAMONO <0.87 k/uL Abs [place] 0.14 LAB AEOS % Eosin% 2.5 LAB AAEOS <0.46 k/uL Abs Eosin 0.06 LAB ABASO % Baso% 0.8 LAB AABASO <0.11 k/uL Abs Baso <0.03 LAB AUNRBC 0 /100 WBC NRBCs 0.0 LAB ABNRBC <0.01 k/uL Absolute nRBC <0.01 LAB DTYP DTYPE Auto Diff Performed By: #### CBCDIF, B12, SERFOL, BMP, IRON, FERR #### [facility] [employer] [address] [address] VITAMIN B12 Collected: 12/03/2018 Status: F Source: [place] 11:18 AM [facility] REPOSITORY TYPE CODE TESTS RESULT OUT OF REFERENCE UNITS RANGE LAB B12 232-1245 pg/mL Vitamin B12 544 Performed By: #### CBCDIF, B12, SERFOL, BMP, IRON, FERR #### [facility] [employer] [address] [address] FOLATE, SERUM Collected: 12/03/2018 Status: F Source: [place] 11:18 AM [facility] REPOSITORY TYPE CODE TESTS RESULT OUT OF REFERENCE UNITS RANGE LAB SERFOL >4.7 ng/mL Folate, 4.8 Serum Performed By: #### CBCDIF, B12, SERFOL, BMP, IRON, FERR #### [facility] [employer] [facility] [address] BASIC METABOLIC PANL Collected: 12/03/2018 Status: F Source: [place] 11:18 AM [facility] REPOSITORY TYPE CODE TESTS RESULT OUT OF REFERENCE UNITS RANGE LAB GLU 74-99 mg/dL High Glucose 139 Result Comment: The [place] [employer] (ADA) provides guidance for cutoff [...] Standards of Medical Care in Diabetes 2016, [place] [employer]. Diabetes Care. 2016.39(Suppl 1). LAB BUN 7-21 mg/dL BUN 8 LAB CRET 0.58-0.96 mg/dL Creatinine 0.61 LAB NA 136-144 mmol/L Sodium 143 LAB K 3.7-5.1 mmol/L Potassium 4.2 LAB CL 97-105 mmol/L Chloride 104 LAB CO2 22-30 mmol/L CO2 27 LAB AGAP 9-18 mmol/L Anion Gap 12 LAB CA 8.5-10.2 mg/dL Calcium, Total 9.6 LAB GFRAA eGFR- Amer. >60 LAB GFRNAA [...] reflect actual GFR. Performed By: #### CBCDIF, B12, SERFOL, BMP, IRON, FERR #### [facility] [employer] [address] [address] IRON AND TIBC Collected: 12/03/2018 Status: F Source: [place] 11:18 AM [facility] REPOSITORY TYPE CODE TESTS RESULT OUT OF REFERENCE UNITS RANGE LAB IRN 41-186 ug/dL Iron 50 LAB TIBC 232-386 ug/dL TIBC 326 LAB SAT 15-57 % Transferrin Saturatn 15 Performed By: #### CBCDIF, B12, SERFOL, BMP, IRON, FERR #### [facility] [employer] [address] [address] FERRITIN Collected: 12/03/2018 Status: F Source: [place] 11:18 AM [facility] REPOSITORY TYPE CODE TESTS RESULT OUT OF REFERENCE UNITS RANGE LAB FERR 14.7-205.1 ng/mL Ferritin 135.6 Performed By: #### CBCDIF, B12, SERFOL, BMP, IRON, FERR #### [facility] [address] [id number] FECAL OCCULT BLD Collected: 12/03/2018 Status: F Source: [facility] 9:00 AM [facility] REPOSITORY TYPE CODE TESTS RESULT OUT OF RANGE REFERENCE UNITS LAB IFO Negative Abnormal Alert Immuno Positive FOB Result Comment: This test was developed and its performance characteristics determined by [facility]'s [facility] ([facility]). It has not been cleared or approved by the FDA. -[facility] is regulated under CLIA as qualified to perform high-complexity testing. This test is used for clinical purposes. It should not be regarded as investigational or for research. Performed By: #### IFOBT #### [facility] [address] [place], [place] [address] PROGRESS Observed: 12/02/2018 Status: COMPLETED Source: [place]OTT 3:46 PM [facility] WITHAMS REPOSITORY HNO ID: [id number] Author: Yandel Bush Service: (none) Author Type: Physician Type: Progress Notes Filed: 12/02/2018 5:49 PM Note Text: Patient presents with: Transition Of Care: TCM HPI: Patient presents today for office visit for TCM: HOSPITAL/ER FOLLOW UP: Reason for visit: hospital follow up. Which facility: [facility] Date of visit: 11/24-11/26 Diagnosis: Hypokalemia, hypotension. Follow up from previous SDH Testing done:potassium replacement and bp meds held. Had initial SDH. Did apparently fall off of the toilet while in hospital during one of her admissions. She says she has some buttock pain but declines xrays. Elected to watch. Went home and back in. Was then moved to a assisted facility for physical therapy. Discharged there on 11/15. Remembers little of initial hospitalizations. Readmitted due to her hypokalemia and hypotension. Currently not on lithium. Was stopped a little while ago. She feels emotionally she is doing well. She is not taking her sertraline either. No suicidal ideation. She has not contacted Dr. Jean. She is seeing Dr. Myers tomorrow. She stopped her betablocker but resumed her hctz and k due to edema. That is now better. No new chest pain or shortness of breath. No palpitations. Saw neurosurgery yesterday and released. Lost 13 lbs while in ecf. Not taking her sugars meds as well. There was a question of vaginal bleeding but was seen by line operator during hospitalizations and was not found. Has had no issues since. MEDICATIONS: Current Outpatient Prescriptions: potassium chloride (KLOR-CON) 20 mEq packet Take 1 Packet by mouth twice daily. pantoprazole DR (PROTONIX) 40 mg tablet TAKE ONE TABLET BY MOUTH ONCE DAILY FARXIGA 10 mg tab TAKE ONE TABLET BY MOUTH DAILY Hydrochlorothiazide 12.5 mg capsule Take 12.5 mg by mouth once daily. No current facility-administered [...] RISK PT 04/17/2011 next 04/17/16, Dr. Dimitris Carlson [place] - TOTAL ABDOM HYSTERECTOMY Hysterectomy, LEONILA - TOTAL HIP REPLACEMENT bilateral 2007 right hip, 2010 lef t hip FAMILY HISTORY Problem Relation Age of Onset - Diabetes Mother - Hypertension Mother - Cancer Father lung cancer - Diabetes Father - Heart Father NC x 2 - Hypertension Father - Diabetes Maternal Grandmother - Diabetes Maternal Grandfather - Diabetes Paternal Grandmother - Hypertension Paternal Grandmother - Diabetes Paternal Grandfather - Heart Paternal Grandfather NC Social History Marital status: Spouse name: Years [...] social history today. REVIEW OF SYSTEMS GI: No nausea, vomiting, or diarrhea : No history of dysuria, frequency or incontinence All other reviewed and negative other than HPI. VITALS: BP 118/70 (BP Site: Left Arm, BP Position: Sitting, BP Cuff Size: Large Adult) Pulse 64 Resp 16 Wt 107.2 kg (236 lb 6.4 oz) BMI 40.58 kg/m? Last 4 Encounter Wt Readings: Date: Wt: 12/02/2018 107.2 kg (236 lb 6.4 oz) 12/01/2018 106.6 kg (235 lb) 10/20/2018 111.3 kg (245 lb 6 oz) 10/13/2018 113.1 kg (249 lb 5.4 oz) PHYSICAL EXAMINATION: General appearance: Well appearing, alert, in no acute distress, well-hydrated, well nourished. Skin: Skin color, texture, turgor normal, no suspicious rashes or lesions Head: Normocephalic, no masses, lesions, tenderness or abnormalities Lungs: lungs clear to auscultation. No wheezing, rhonchi, rales Heart: RRR without murmur, gallop, or rubs. No ectopy Abdomen: Normal abdominal exam, Abdomen soft, non-tender. Bowel sounds normal. No masses, organomegaly Extremities: No deformities, edema, skin discoloration, clubbing or cyanosis. Good capillary refill. Musculoskeletal: No joint swelling, deformity, or tenderness Peripheral pulses: Normal PSYCH:Affect normal. Normal speech. Normal eye contact ASSESSMENT/PLAN: 1. Hypokalemia - ICD9: 276.8, ICD10: E87.6 (primary diagnosis) - continue meds. bp is ok for now. Recheck labs. - BASIC METABOLIC PNL 2. Essential (primary) hypertension - ICD9: 401.9, ICD10: I10 - good control - Recommended regular aerobic exercise. - Recommend home blood pressure monitoring, to bring results in on next visit - Ok to stay on current meds. - Goal of BP <130/80 3. Type 2 diabetes mellitus with complication, without long- term current use of insulin (HCC) - ICD9: 250.90, ICD10: E11.8 Controlled. - call sugars in one week since off of meds. Continue to watch her diet. 4. Paroxysmal atrial fibrillation (HCC) - ICD9: 427.31, ICD10: I48.0 - call if any issues. 5. Bipolar affective disorder, remission status unspecified ([facility]) - ICD9: 296.80, ICD10: F31.9 - asked her to contact psych immediately regarding meds. 6. Epidural hematoma (HCC) - ICD9: 852.40, ICD10: S06.4X9A - stable 7. Major depressive disorder with single episode, remission status unspecified - ICD9: 296.20, ICD10: F32.9 - as above 8. Traumatic hemorrhage of left cerebrum without loss of consciousness, initial encounter ([facility]) - ICD9: 853.01, ICD10: S06.350A 9. SDH (subdural hematoma) ([facility]) - ICD9: 432.1, ICD10: S06.5X9A 10. Anemia, unspecified type - ICD9: 285.9, ICD10: D64.9 - recheck labs that were ordered. Yandel Bush MD RTO in one month and prn. PROGRESS Observed: 12/02/2018 Status: COMPLETED Source: [place] 3:30 PM [facility] REPOSITORY O ID: [id number] Author: Yandel Bush Service: (none) Author Type: Physician Type: Progress Notes Filed: 12/02/2018 5:49 PM Note Text: TRANSITION CARE MANAGEMENT (TCM) INITIAL CONTACT Auto Brake Technician Outreach ? Provider Action/FYI: Wants to verify Coggon dosage. Pt was told her Coggon levels were too high but dosage is the same. Level was not checked at recent admission. Last tested on 11/21/18 ? ? Initial contact with patient post discharge, spoke to patient. Patient identified by name and . ? TRANSITION CARE MANAGEMENT INITIAL OUTREACH DOCUMENTATION: No flowsheet data found. ? SUMMARY: -Pt discharged from [facility] on 11/26/18. -Admitted for: Hypokalemia and Hypotension. ? Do you have a hospital follow up appointment with your PCP? Appointment on 12/02/[address] Bush. Yes. Remind patient of appointment date, time, and location. If not within 14 calendar days of discharge - please reschedule accordingly. ? MEDICATIONS: Many patients have questions or concerns about their medications once they are home. Were you prescribed any new medications? Yes If yes, what are those medications? Klor-Con 20 mg twice a day. ? Were you told to hold any medications? Yes If yes, what are those medications? Metoprolol and Hydrochlorothiazide Were any of your medications discontinued? No ? Do you have any questions about getting or taking your medications? Yes; See above ? Your discharge instructions/After visit Summary (AVS) are important in guiding you through the recovery process. Is there anything I might help you understand? No ? Do you have all the necessary equipment and supplies at home? Yes ? Medical records from recent hospitalization: Placed for provider to review TRANSITION CARE MANAGEMENT (TCM) INITIAL CONTACT ? ? Provider FYI: Hospital d/c 10/17 SDH, TBI Advised ED d/t persistent vomiting, severe RODRIGUEZ, worsening of mental status. See Concerns for further details ? ? Initial contact with patient post discharge, spoke to daughter, oJanne Patient identified by name and . ? TRANSITION CARE MANAGEMENT: Date of Outreach: 10/20/2018 Outreach Attempt 1: Contact Made Date of Discharge 10/17/2018 Some recent data might be hidden ? ? ? SUMMARY: -Pt discharged from [facility] on 10/17 -Follow up appointment on- advised ER -Medication review done- new meds only -Admitted for: Fall SDH, ICH ? CONCERNS: Spoke with dtr, Joanne. Reports patient was better when she got home on10/17, but vomited 3 times yesterday and developed a severe RODRIGUEZ- as bad as when first admitted. Took her to [place] ED yesterday. Reportedly CT scan negative for change. Sent her home with Zofran. ? Reports she is not any better since [...] mental status is worse since d/c from [facility] on 10/17 not worse since ED visit yesterday. Up walking to with walker. ? Advised ED d/t continued vomiting, severe RODRIGUEZ, change in mental status Dtr reluctant to take back to [facility]. Advised to take to [facility] now. Dtr agreed- plans to take by car. Encouraged to call 911 immediately if any worsening of SX. Agreed. ? NEW MEDICATIONS: levETIRAcetam 1,000 mg tablet Commonly known as: KEPPRA Take 1 tablet by mouth twice daily for 1 day. Last time this ? MEDS HELD/DISCONTINUED: none ? BRIEF HOSPITAL COURSE: The following content has been copied and pasted from patient's progress note. ASSESSMENT AND PLAN: ? Active Hospital Problems ? Diagnosis Date Noted - SDH (subdural hematoma) ([facility]) 10/14/2018 - Midline shift of brain due to hematoma 10/14/2018 - Fall 10/14/2018 - TBI (traumatic brain injury) ([facility]) 10/14/2018 - ICH (intracerebral hemorrhage) ([facility]) 10/13/2018 - Type 2 diabetes mellitus without complication ([facility]) 01/08/2012 ? ? 58 year old female s/p GLF with L SDH with R shift ? Imaging performed: 1. XR Pelvis?(10/13/18): right superior pubic ramus lucency, likely bowel [...] f/u with Dr. Schmidt in 4-6 weeks, keppra 6. PT pending ? Consulted Services and recs: 1. Neurosurgery 2. Physical Therapy ? Dispo Plannin. TBD ? PPX: 1. DVT: SCDs, no LVX at this time 2. Ulcer: PPI 3. Vit D level if >?65 yo: 497 4. ARC monitoring indicated? ? Incidentals: 1. None ? Follow Up Needs: 1. NSx in 4-6 weeks ? ? Assessment and plan discussed with attending: Dr Omer ? SIGNATURE: Rand Chen MD PATIENT NAME: Elli Guerrero DATE: October 17, 2018 TIME: 9:30 AM Pager: below ? ? -- Rosa Lopez RN, [facility] [phone] ? CNOV Observed: 12/02/2018 Status: COMPLETED Source: [place]OTT 3:20 PM [facility] REPOSITORY Office Visit (FAMPWS) ELLI GUERRERO ([id number]) 1960 F Date Time Provider Department 12/02/18 3:20 PM [facility] During your visit today, we recorded the following information about you: Pulse Respiration Blood pressure Weight 64/minute 16/minute 118/70 107.2 kg Yandel Bush MD 12/02/2018 5:49 PM Signed TRANSITION CARE MANAGEMENT (TCM) INITIAL CONTACT Auto Brake Technician Outreach ? Provider Action/FYI: Wants to verify Coggon dosage. Pt was told her Coggon levels were too high but dosage is the same. Level was not checked at recent admission. Last tested on 11/21/18 ? ? Initial contact with patient post discharge, spoke to patient. Patient identified by name and . ? TRANSITION CARE MANAGEMENT INITIAL OUTREACH DOCUMENTATION: No flowsheet data found. ? SUMMARY: -Pt discharged from [facility] on 11/26/18. -Admitted for: Hypokalemia and Hypotension. ? Do you have a hospital follow up appointment with your PCP? Appointment on 12/02/[address] Bush. Yes. Remind patient of appointment date, time, and location. If not within 14 calendar days of discharge - please reschedule accordingly. ? MEDICATIONS: Many patients have questions or concerns about their medications once they are home. Were you prescribed any new medications? Yes If yes, what are those medications? Klor-Con 20 mg twice a day. ? Were you told to hold any medications? Yes If yes, what are those medications? Metoprolol and Hydrochlorothiazide Were any of your medications discontinued? No ? Do you have any questions about getting or taking your medications? Yes; See above ? Your discharge instructions/After visit Summary (AVS) are important in guiding you through the recovery process. Is there anything I might help you understand? No ? Do you have all the necessary equipment and supplies at home? Yes ? Medical records from recent hospitalization: Placed for provider to review TRANSITION CARE MANAGEMENT (TCM) INITIAL CONTACT ? ? Provider FYI: Hospital d/c 10/17 SDH, TBI Advised ED d/t persistent vomiting, severe RODRIGUEZ, worsening of mental status. See Concerns for further details ? ? Initial contact with patient post discharge, spoke to daughter, Joanne Patient identified by name and . ? TRANSITION CARE MANAGEMENT: Date of Outreach: 10/20/2018 Outreach Attempt 1: Contact Made Date of Discharge 10/17/2018 Some recent data might be hidden ? ? ? SUMMARY: -Pt discharged from [facility] on 10/17 -Follow up appointment on- advised ER -Medication review done- new meds only -Admitted for: Fall SDH, ICH ? CONCERNS: Spoke with dtr, Joanne. Reports patient was better when she got home on10/17, but vomited 3 times yesterday and developed a severe RODRIGUEZ- as bad as when first admitted. Took her to [place] ED yesterday. Reportedly CT scan negative for change. Sent her home with Zofran. ? Reports she is not any better since [...] mental status is worse since d/c from [facility] on 10/17 not worse since ED visit yesterday. Up walking to with walker. ? Advised ED d/t continued vomiting, severe RODRIGUEZ, change in mental status Dtr reluctant to take back to [facility]. Advised to take to [facility] now. Dtr agreed- plans to take by car. Encouraged to call 911 immediately if any worsening of SX. Agreed. ? NEW MEDICATIONS: levETIRAcetam 1,000 mg tablet Commonly known as: KEPPRA Take 1 tablet by mouth twice daily for 1 day. Last time this ? MEDS HELD/DISCONTINUED: none ? BRIEF HOSPITAL COURSE: The following content has been copied and pasted from patient's progress note. ASSESSMENT AND PLAN: ? Active Hospital Problems ? Diagnosis Date Noted - SDH (subdural hematoma) ([facility]) 10/14/2018 - Midline shift of brain due to hematoma 10/14/2018 - Fall 10/14/2018 - TBI (traumatic brain injury) ([facility]) 10/14/2018 - ICH (intracerebral hemorrhage) ([facility]) 10/13/2018 - Type 2 diabetes mellitus without complication ([facility]) 01/08/2012 ? ? 58 year old female s/p GLF with L SDH with R shift ? Imaging performed: 1. XR Pelvis?(10/13/18): right superior pubic ramus lucency, likely bowel [...] Ulcer: PPI 3. Vit D level if >?65 yo: 497 4. ARC monitoring indicated? ? Incidentals: 1. None ? Follow Up Needs: 1. NSx in 4-6 weeks ? ? Assessment and plan discussed with attending: Dr Omer ? SIGNATURE: Rand Chen MD PATIENT NAME: Elli Guerrero DATE: October 17, 2018 TIME: 9:30 AM Pager: below ? ? Rosa Lopez RN, [facility] [phone] ? Chelsea Feliciano Waller 12/02/2018 3:48 PM Signed Pt here today for a hospital follow up. Originally started in September with a brain bleed that she reports she drove herself to the hospital with. Pt was at [facility]. She recently was d/c from [facility] and Zabrina Yanes completing PT. Pt states that she doesn't have real clarity of what events happened over the last few months. She was d/c off of Metoprolol and HCTZ. Was started on Potassium 20 mg twice daily. Neuro - Followed up with Specialist yesterday. Rheum - Following with Dr. Myers tomorrow and currently holding her medications per patient. Psych - Pt currently is not taking any medication and states that she could cry at any moment. Yandel Buhs MD 12/02/2018 5:49 PM Signed Patient presents with: Transition Of Care: TCM HPI: Patient presents today for office visit for TCM: HOSPITAL/ER FOLLOW UP: Reason for visit: hospital follow up. Which facility: [facility] Date of visit: 11/24-11/26 Diagnosis: Hypokalemia, hypotension. Follow up from previous SDH Testing done:potassium replacement and bp meds held. Had initial SDH. Did apparently fall off of the toilet while in hospital during one of her admissions. She says she has some buttock pain but declines xrays. Elected to watch. Went home and back in. Was then moved to a assisted facility for physical therapy. Discharged there on 11/15. Remembers little of initial hospitalizations. Readmitted due to her hypokalemia and hypotension. Currently not on lithium. Was stopped a little while ago. She feels emotionally she is doing well. She is not taking her sertraline either. No suicidal ideation. She has not contacted Dr. Jean. She is seeing Dr. Myers tomorrow. She stopped her betablocker but resumed her hctz and k due to edema. That is now better. No new chest pain or shortness of breath. No palpitations. Saw neurosurgery yesterday and released. Lost 13 lbs while in ecf. Not taking her sugars meds as well. There was a question of vaginal bleeding but was seen by line operator during hospitalizations and was not found. Has had no issues since. MEDICATIONS: Current Outpatient Prescriptions: potassium chloride (KLOR-CON) 20 mEq packet Take 1 Packet by mouth twice daily. pantoprazole DR (PROTONIX) 40 mg tablet TAKE ONE TABLET BY MOUTH ONCE DAILY FARXIGA 10 mg tab TAKE ONE TABLET BY MOUTH DAILY Hydrochlorothiazide 12.5 mg capsule Take 12.5 mg by mouth once daily. No current facility-administered [...] APPENDECTOMY 1976 - COLONOSCOP W/ OR W/O [facility] SPEC 02/13/2017 Colonoscopy mac - COLONOSCOPY 04/17/2011 X6. TA in 2008 - EGD W/O OR W/BRUSH/WASH 06/09/14 EGD - EGD W/O OR W/BRUSH/WASH 02/13/2017 EGD mac - FOOT RIGHT OP SURGERY 1992 rebuilt bottom of right foot - HEART CATHETERIZATION - LIGATE FALLOPIAN TUBE 1982 - REMOVAL OF GALLBLADDER 1977 - SCREENING COLONOSCOPY, NOT HIGH RISK PT 04/17/2011 next 04/17/16, Dr. Dimitris Carlson [place] - TOTAL ABDOM HYSTERECTOMY Hysterectomy, LEONILA - TOTAL HIP REPLACEMENT bilateral 2007 right hip, 2011 lef t hip FAMILY HISTORY Problem Relation Age of Onset - Diabetes Mother - Hypertension Mother - Cancer Father lung cancer - Diabetes Father - Heart Father NC x 2 - Hypertension Father - Diabetes Maternal Grandmother - Diabetes Maternal Grandfather - Diabetes Paternal Grandmother - Hypertension Paternal Grandmother - Diabetes Paternal Grandfather - Heart Paternal Grandfather NC Social History Marital status: Spouse name: Years [...] social history today. REVIEW OF SYSTEMS GI: No nausea, vomiting, or diarrhea : No history of dysuria, frequency or incontinence All other reviewed and negative other than HPI. VITALS: BP 118/70 (BP Site: Left Arm, BP Position: Sitting, BP Cuff Size: Large Adult) Pulse 64 Resp 16 Wt 107.2 kg (236 lb 6.4 oz) BMI 40.58 kg/m? Last 4 Encounter Wt Readings: Date: Wt: 12/02/2018 107.2 kg (236 lb 6.4 oz) 12/01/2018 106.6 kg (235 lb) 10/20/2018 111.3 kg (245 lb 6 oz) 10/13/2018 113.1 kg (249 lb 5.4 oz) PHYSICAL EXAMINATION: General appearance: Well appearing, alert, in no acute distress, well-hydrated, well nourished. Skin: Skin color, texture, turgor normal, no suspicious rashes or lesions Head: Normocephalic, no masses, lesions, tenderness or abnormalities Lungs: lungs clear to auscultation. No wheezing, rhonchi, rales Heart: RRR without murmur, gallop, or rubs. No ectopy Abdomen: Normal abdominal exam, Abdomen soft, non-tender. Bowel sounds normal. No masses, organomegaly Extremities: No deformities, edema, skin discoloration, clubbing or cyanosis. Good capillary refill. Musculoskeletal: No joint swelling, deformity, or tenderness Peripheral pulses: Normal PSYCH:Affect normal. Normal speech. Normal eye contact ASSESSMENT/PLAN: 1. Hypokalemia - ICD9: 276.8, ICD10: E87.6 (primary diagnosis) - continue meds. bp is ok for now. Recheck labs. - BASIC METABOLIC PNL 2. Essential (primary) hypertension - ICD9: 401.9, ICD10: I10 - good control - Recommended regular aerobic exercise. - Recommend home blood pressure monitoring, to bring results in on next visit - Ok to stay on current meds. - Goal of BP <130/80 3. Type 2 diabetes mellitus with complication, without long- term current use of insulin (HCC) - ICD9: 250.90, ICD10: E11.8 Controlled. - call sugars in one week since off of meds. Continue to watch her diet. 4. Paroxysmal atrial fibrillation (HCC) - ICD9: 427.31, ICD10: I48.0 - call if any issues. 5. Bipolar affective disorder, remission status unspecified (HCC) - ICD9: 296.80, ICD10: F31.9 - asked her to contact psych immediately regarding meds. 6. Epidural hematoma (HCC) - ICD9: 852.40, ICD10: S06.4X9A - stable 7. Major depressive disorder with single episode, remission status unspecified - ICD9: 296.20, ICD10: F32.9 - as above 8. Traumatic hemorrhage of left cerebrum without loss of consciousness, initial encounter ([facility]) - ICD9: 853.01, ICD10: S06.350A 9. SDH (subdural hematoma) (HCC) - ICD9: 432.1, ICD10: S06.5X9A 10. Anemia, unspecified type - ICD9: 285.9, ICD10: D64.9 - recheck labs that were ordered. Yandel Bush MD RTO in one month and prn. Yandel Bush MD 12/02/2018 3:57 PM Signed Please contact Dr. Ted casillas and verify psych meds. Referring Provider: SELF [[id number]] Allergies As of Date: 12/02/2018 (No Known Allergies) Date Reviewed: 12/02/2018 Reviewed by: Chelsea Wiggins Ma - Fully Assessed Reason for Visit: Transition Of Care [4074] Cmt: TCM Reason For Visit History Recorded Primary Visit Diagnosis:Hypokalemia [E87.6] Other Visit Diagnoses:Essential (primary) hypertension [I10] Type 2 diabetes mellitus with complication, without long-term current use of insulin (HCC) [E11.8] Paroxysmal atrial fibrillation (HCC) [I48.0] Bipolar affective disorder, remission status unspecified (HCC) [F31.9] Epidural hematoma (HCC) [S06.4X9A] Major depressive disorder with single episode, remission status unspecified [F32.9] Traumatic hemorrhage of left cerebrum without loss of consciousness, initial encounter (HCC) [S06.350A] SDH (subdural hematoma) (HCC) [S06.5X9A] Anemia, unspecified type [D64.9] Order(s):BASIC METABOLIC PNL [SQBMP] Order #: [id number] FUTURE Prescriptions as of 12/02/2018 Sig: POTASSIUM CHLORIDE 20 MEQ ORA* Take 1 Packet by mouth twice * PANTOPRAZOLE 40 MG TABLET,DEL* TAKE ONE TABLET BY MOUTH ONCE* FARXIGA 10 MG TABLET TAKE ONE TABLET BY MOUTH DAILY HYDROCHLOROTHIAZIDE 12.5 MG C* Take 12.5 mg by mouth once da* Problem List As Of Date 12/02/2018 Noted Resolved Type 2 diabetes mellitus (HCC) [E11.9] INVALID FOR* More... Essential (primary) hypertension [I10] INVALID FOR* More... Bipolar disorder, unspecified (HCC) [F31.9] INVALID FOR* More... Morbid obesity [E66.01] INVALID FOR* Fatty liver [K76.0] INVALID FOR* More... Paroxysmal atrial fibrillation (HCC) [I48.0] INVALID FOR* More... History of colonic polyps [Z86.010] INVALID FOR* Obstructive sleep apnea (adult) (pediatric) [G4*INVALID FOR* More... Gastro-esophageal reflux disease without esopha*INVALID FOR* More... Urge incontinence [N39.41] INVALID FOR* Positive MATY (antinuclear antibody) [R76.8] INVALID FOR* More... p [M32.9] INVALID FOR*04/03/2018 More... Iron deficiency anemia [D50.9] INVALID FOR* Anemia [D64.9] INVALID FOR* More... Obesity, Class III, BMI >= 40 [E66.01] INVALID FOR* ICH (intracerebral hemorrhage) (HCC) [I61.9] INVALID FOR* SDH (subdural hematoma) (HCC) [S06.5X9A] INVALID FOR* Midline shift of brain due to hematoma [G93.9] INVALID FOR* Fall [W19.XXXA] INVALID FOR* TBI (traumatic brain injury) ([facility]) [S06.9X9A] INVALID FOR* Epidural hematoma (HCC) [S06.4X9A] INVALID FOR* More... Major depressive disorder, single episode, unsp*INVALID FOR* More... Vaginal bleeding [N93.9] INVALID FOR*12/02/2018 More... Other instructions from your clinician: Please contact Dr. Ted casillas and verify psych meds. Visit Notes: >> Chelsea Vogelgloria Dec 02, 2018 3:44 PM Status: Signed Pt here today for a hospital follow up. Originally started in September with a brain bleed that she reports she drove herself to the hospital with. Pt was at [facility] and [facility] She recently was d/c from [facility] and [facility] completing PT. Pt states that she doesn't have real clarity of what events happened over the last few months. She was d/c off of Metoprolol and HCTZ. Was started on Potassium 20 mg twice daily. Neuro - Followed up with Specialist yesterday. Rheum - Following with Dr. Myers tomorrow and currently holding her medications per patient. Psych - Pt currently is not taking any medication and states that she could cry at any moment. Medications Discontinued During This Encounter sertraline (ZOLOFT) 100 mg tablet 0 04/10/2012 12/02/2018 Class: Historical Med Route: ORAL Sig: Take 150 mg by mouth once daily. Disc: Reason for discontinue is not on file. lithium carbonate ER 450 mg CR tablet 12/02/2018 Class: Historical Med Route: ORAL Sig: Take 900 mg by mouth daily at bedtime. Disc: Reason for discontinue is not on file. metoprolol tartrate, short acting, (* 10/28/2018 12/02/2018 Class: Med Update Route: ORAL Sig: Take 0.5 tablets by mouth every 12 hours. Patient not taking: Reported on 12/01/2018 Disc: Reason for discontinue is not on file. lithium carbonate ER 450 mg CR tablet 12/02/2018 Class: Historical Med Route: ORAL Sig: Take 450 mg by mouth once daily. Disc: Reason for discontinue is not on file. metFORMIN (GLUCOPHAGE) 500 mg tablet 360 * 3 11/17/2018 12/02/2018 Cmt: This prescription was filled on 11/14/2018. Any refills authorized will be placed on file. Sig: TAKE TWO TABLETS BY MOUTH TWICE DAILY WITH MEALS Disc: Reason for discontinue is not on file. Ferrous Gluconate (FERGON) 324 mg (3* 60 t* 5 11/14/2018 12/02/2018 Cmt: This prescription was filled on 11/14/2018. Any refills authorized will be placed on file. Sig: TAKE ONE TABLET BY MOUTH TWICE DAILY WITH MEALS Disc: Reason for discontinue is not on file. hydroxychloroquine (PLAQUENIL) 200 m* 12/02/2018 Class: Historical Med Route: ORAL Sig: Take 200 mg by mouth twice daily. Disc: Reason for discontinue is not on file. glimepiride (AMARYL) 4 mg tablet 90 t* 3 11/17/2018 12/02/2018 Cmt: This prescription was filled on 11/14/2018. Any refills authorized will be placed on file. Sig: TAKE ONE TABLET BY MOUTH DAILY WITH BREAKFAST Disc: Reason for discontinue is not on file. Disposition: Return in about 4 weeks (around 12/30/2018). Follow-up and Disposition History Recorded Encounter Status:Closed by YANDEL BUSH MD on 12/02/18 PROGRESS Observed: 12/01/2018 Status: COMPLETED Source: [facility] 3:30 PM CLINIC OTHER CAMPUS REPOSITORY O ID: [id number] Author: Melissa Schmidt Service: (none) Author Type: Physician Type: Progress Notes Filed: 12/01/2018 4:22 PM Note Text: OUTPATIENT ADULT NEUROSURGICAL FOLLOWUP Dear Dr. Eleazar Guerrero presented for follow up in the adult neurosurgery clinic on 12/01/2018 for the problem of left subdural hematoma. Although her history is well known to you, please allow me to reiterate it for the purpose of my medical record. Elli M Martinehuber is accompanied to Informant: History obtained from patient. Chief Complaint: Follow up (left SDH) SUBJECTIVE: Elli Guerrero is a 58 year old right-handed female with a hx of left subdural hematoma who presents today for follow up. She is symptom free and at her neurologic baseline. Past Medical and Surgical History: PAST MEDICAL HISTORY Diagnosis Date - Anemia [...] RISK PT 04/17/2011 next 04/17/16, Dr. Dimitris Carlson [place]enton - TOTAL ABDOM HYSTERECTOMY Hysterectomy, LEONILA - TOTAL HIP REPLACEMENT bilateral 2007 right hip, 2010 lef t hip Current Outpatient Medications: Current Outpatient Prescriptions on File Prior to Visit: glimepiride (AMARYL) 4 mg tablet TAKE ONE TABLET BY MOUTH DAILY WITH BREAKFAST metFORMIN (GLUCOPHAGE) 500 mg tablet TAKE TWO TABLETS BY MOUTH TWICE DAILY WITH MEALS Ferrous Gluconate (FERGON) 324 mg (38 mg iron) tablet TAKE ONE TABLET BY MOUTH TWICE DAILY WITH MEALS metoprolol tartrate, short acting, (LOPRESSOR) 25 mg tablet Take 0.5 tablets by mouth every 12 hours. lithium carbonate ER 450 mg CR tablet Take 900 mg by mouth daily at bedtime. lithium carbonate ER 450 mg CR tablet Take 450 mg by mouth once daily. Hydrochlorothiazide 12.5 mg capsule Take 12.5 mg by mouth once daily. pantoprazole DR (PROTONIX) 40 mg tablet TAKE ONE TABLET BY MOUTH ONCE DAILY FARXIGA 10 mg tab TAKE ONE TABLET BY MOUTH DAILY hydroxychloroquine (PLAQUENIL) 200 mg tablet Take 200 mg by mouth twice daily. sertraline (ZOLOFT) 100 mg tablet Take 150 mg by mouth once daily. No current facility-administered medications on file prior to visit. ALLERGIES No Known Allergies Review of Systems: General: No significant weight loss. Head: Headaches resolved Eyes: No vision problems identified. Ears: No hearing problems identified Respiratory: Negative for cough, wheezing, or shortness of breath Cardiovascular: Negative for cyanosis, swelling, or chest pain Gastrointestinal: Negative for abdominal pain, vomiting, or constipation Genitourinary: Negative for dysuria or frequency Musculoskeletal: Negative for joint or muscle pain or swelling Skin: Negative for lesions, rash, and itching. Psychiatric: Negative for sleep disturbance, mood disorder and recent psychosocial stressors. Hematology/Lymphology: Negative for prolonged bleeding, bruising easily, and swollen nodes. Endocrine: Negative for short stature and polyuria Neurological: See History of Present Illness PHYSICAL EXAM: There were no vitals taken for this visit. General: well-appearing and undistressed woman. She is non-dysmorphic, There are no neurocutaneous stigmata Head: normocephalic,atraumatic Eyes: Eyes are symmetrical, there are no signs of conjunctivitis, swelling or proptosis and gaze is conjugate Abdomen: Soft, nontender, without palpable masses or organomegaly Musculoskeletal: Muscle tone normal in all four limbs without atrophy. Muscle strength 5/5 in both upper and lower extremities Moves upper and lower extremities actively and passively Mental status is normal and age appropriate with clear, coherent speech. Neurological: Higher integrative functions: oriented to person, place and time Memory: good recent and remote Attention span and concentration: good 2nd cranial nerve: full visual pearson 3rd, 4th and 6th cranial nerves: PERRL, full extraocular movements 5th cranial nerve: no decrease in facial sensation 7th cranial nerve: facial muscles symmetric and strong 8th cranial nerve: hears finger rub well bilaterally 9th and 10th cranial nerves: spontaneous palate movement, full and symmetric 11th cranial nerve: full strength in shoulder shrug 12th cranial nerve: tongue protrusion full and midline Myotactic reflexes: 2+ and symmetrical Gait: Normal Sensory examination is intact to light touch and proprioception Melissa Schmidt MD PHd MEDICAL DECISION MAKING DATA REVIEW: CT Brain scan: near complete resolution of left subdural hematoma compared to previous (per my review) IMPRESSION AND RECOMMENDATIONS In summary, Elli Guerrero is a 58 year old young woman with hx of left subdural hematoma, now nearly resolved. She is doing well and requires no further neurosurgical intervention or follow up. She may resume her previous activities. I answered all question in detail, and patient voiced understanding, agreement and appreciation of the diagnosis, options and recommendations discussed. TREATMENT OPTIONS AND RISKS: I have discussed the management options and there respective risks and benefits with the patient. Greater than 50% of the clinic visit was spent in direct [id number] time counseling patient/coordinating care for total time spent of 30 minutes. Thank you for the opportunity to participate in Elli Guerrero's care. If I can answer any additional questions, I would be pleased to do so. Sincerely, CC: These final recommendations will be communicated back to the requesting physician/primary care physician by way of shared medical record CNOV Observed: 12/01/2018 Status: COMPLETED Source: [facility] 3:30 PM [facility] OTHER WITHAMS REPOSITORY Office Visit (NSAGBA) CHRISTIELLI Sam ([id number]) 1960 F Date Time Provider Department 12/01/18 3:30 PM MELISSA SCHMIDT During your visit today, we recorded the following information about you: Pulse Respiration Blood pressure Weight 81/minute 19/minute 133/84 106.6 kg Height 1.626 m Melissa Shcmidt MD PHd 12/01/2018 4:22 PM Signed OUTPATIENT ADULT NEUROSURGICAL FOLLOWUP Dear Dr. Eleazar Curranjaimie Guerrero presented for follow up in the adult neurosurgery clinic on 12/01/2018 for the problem of left subdural hematoma. Although her history is well known to you, please allow me to reiterate it for the purpose of my medical record. Elli Guerrero is accompanied to Informant: History obtained from patient. Chief Complaint: Follow up (left SDH) SUBJECTIVE: Elli Guerrero is a 58 year old right-handed female with a hx of left subdural hematoma who presents today for follow up. She is symptom free and at her neurologic baseline. Past Medical and Surgical History: PAST MEDICAL HISTORY Diagnosis Date - Anemia [...] RISK PT 04/17/2011 next 04/17/16, Dr. Dimitris Carlson Denton - TOTAL ABDOM HYSTERECTOMY Hysterectomy, LEONILA - TOTAL HIP REPLACEMENT bilateral 2007 right hip, 2010 lef t hip Current Outpatient Medications: Current Outpatient Prescriptions on File Prior to Visit: glimepiride (AMARYL) 4 mg tablet TAKE ONE TABLET BY MOUTH DAILY WITH BREAKFAST metFORMIN (GLUCOPHAGE) 500 mg tablet TAKE TWO TABLETS BY MOUTH TWICE DAILY WITH MEALS Ferrous Gluconate (FERGON) 324 mg (38 mg iron) tablet TAKE ONE TABLET BY MOUTH TWICE DAILY WITH MEALS metoprolol tartrate, short acting, (LOPRESSOR) 25 mg tablet Take 0.5 tablets by mouth every 12 hours. lithium carbonate ER 450 mg CR tablet Take 900 mg by mouth daily at bedtime. lithium carbonate ER 450 mg CR tablet Take 450 mg by mouth once daily. Hydrochlorothiazide 12.5 mg capsule Take 12.5 mg by mouth once daily. pantoprazole DR (PROTONIX) 40 mg tablet TAKE ONE TABLET BY MOUTH ONCE DAILY FARXIGA 10 mg tab TAKE ONE TABLET BY MOUTH DAILY hydroxychloroquine (PLAQUENIL) 200 mg tablet Take 200 mg by mouth twice daily. sertraline (ZOLOFT) 100 mg tablet Take 150 mg by mouth once daily. No current facility-administered medications on file prior to visit. ALLERGIES No Known Allergies Review of Systems: General: No significant weight loss. Head: Headaches resolved Eyes: No vision problems identified. Ears: No hearing problems identified Respiratory: Negative for cough, wheezing, or shortness of breath Cardiovascular: Negative for cyanosis, swelling, or chest pain Gastrointestinal: Negative for abdominal pain, vomiting, or constipation Genitourinary: Negative for dysuria or frequency Musculoskeletal: Negative for joint or muscle pain or swelling Skin: Negative for lesions, rash, and itching. Psychiatric: Negative for sleep disturbance, mood disorder and recent psychosocial stressors. Hematology/Lymphology: Negative for prolonged bleeding, bruising easily, and swollen nodes. Endocrine: Negative for short stature and polyuria Neurological: See History of Present Illness PHYSICAL EXAM: There were no vitals taken for this visit. General: well-appearing and undistressed woman. She is non-dysmorphic, There are no neurocutaneous stigmata Head: normocephalic,atraumatic Eyes: Eyes are symmetrical, there are no signs of conjunctivitis, swelling or proptosis and gaze is conjugate Abdomen: Soft, nontender, without palpable masses or organomegaly Musculoskeletal: Muscle tone normal in all four limbs without atrophy. Muscle strength 5/5 in both upper and lower extremities Moves upper and lower extremities actively and passively Mental status is normal and age appropriate with clear, coherent speech. Neurological: Higher integrative functions: oriented to person, place and time Memory: good recent and remote Attention span and concentration: good 2nd cranial nerve: full visual pearson 3rd, 4th and 6th cranial nerves: PERRL, full extraocular movements 5th cranial nerve: no decrease in facial sensation 7th cranial nerve: facial muscles symmetric and strong 8th cranial nerve: hears finger rub well bilaterally 9th and 10th cranial nerves: spontaneous palate movement, full and symmetric 11th cranial nerve: full strength in shoulder shrug 12th cranial nerve: tongue protrusion full and midline Myotactic reflexes: 2+ and symmetrical Gait: Normal Sensory examination is intact to light touch and proprioception Melissa Schmidt MD PHd MEDICAL DECISION MAKING DATA REVIEW: CT Brain scan: near complete resolution of left subdural hematoma compared to previous (per my review) IMPRESSION AND RECOMMENDATIONS In summary, Elli Guerrero is a 58 year old young woman with hx of left subdural hematoma, now nearly resolved. She is doing well and requires no further neurosurgical intervention or follow up. She may resume her previous activities. I answered all question in detail, and patient voiced understanding, agreement and appreciation of the diagnosis, options and recommendations discussed. TREATMENT OPTIONS AND RISKS: I have discussed the management options and there respective risks and benefits with the patient. Greater than 50% of the clinic visit was spent in direct [id number] time counseling patient/coordinating care for total time spent of 30 minutes. Thank you for the opportunity to participate in Elli Guerrero's care. If I can answer any additional questions, I would be pleased to do so. Sincerely, CC: These final recommendations will be communicated back to the requesting physician/primary care physician by way of shared medical record Referring Provider: MELISSA SCHMIDT [[id number]] Allergies As of Date: 12/01/2018 (No Known Allergies) Date Reviewed: 12/01/2018 Reviewed by: Yas Sultana - Fully Assessed Reason for Visit: Follow Up [171] Cmt: Repeat CT/F/U Primary Visit Diagnosis:SDH (subdural hematoma) (HCC) [S06.5X9A] Prescriptions as of 12/01/2018 Sig: GLIMEPIRIDE 4 MG TABLET TAKE ONE TABLET BY MOUTH LISA* FERROUS GLUCONATE 324 MG (38 * TAKE ONE TABLET BY MOUTH TWIC* PANTOPRAZOLE 40 MG TABLET,DEL* TAKE ONE TABLET BY MOUTH ONCE* FARXIGA 10 MG TABLET TAKE ONE TABLET BY MOUTH DAILY SERTRALINE 100 MG TABLET Take 150 mg by mouth once pricila* METFORMIN 500 MG TABLET TAKE TWO TABLETS BY MOUTH TWI* Patient not taking: Reported on 12/01/2018 METOPROLOL TARTRATE 25 MG TAB* Take 0.5 tablets by mouth pilo* Patient not taking: Reported on 12/01/2018 LITHIUM CARBONATE ER 450 MG T* Take 900 mg by mouth daily at* LITHIUM CARBONATE ER 450 MG T* Take 450 mg by mouth once pricila* HYDROCHLOROTHIAZIDE 12.5 MG C* Take 12.5 mg by mouth once da* HYDROXYCHLOROQUINE 200 MG TAB* Take 200 mg by mouth twice da* Problem List As Of Date 12/01/2018 Noted Resolved Type 2 diabetes mellitus (HCC) [E11.9] INVALID FOR* More... Essential (primary) hypertension [I10] INVALID FOR* More... Bipolar disorder, unspecified (HCC) [F31.9] INVALID FOR* More... Morbid obesity [E66.01] INVALID FOR* Fatty liver [K76.0] INVALID FOR* More... Paroxysmal atrial fibrillation (HCC) [I48.0] INVALID FOR* More... History of colonic polyps [Z86.010] INVALID FOR* Obstructive sleep apnea (adult) (pediatric) [G4*INVALID FOR* More... Gastro-esophageal reflux disease without esopha*INVALID FOR* More... Urge incontinence [N39.41] INVALID FOR* Positive MATY (antinuclear antibody) [R76.8] INVALID FOR* More... p [M32.9] INVALID FOR*04/03/2018 More... Iron deficiency anemia [D50.9] INVALID FOR* Anemia [D64.9] INVALID FOR* More... Obesity, Class III, BMI >= 40 [E66.01] INVALID FOR* ICH (intracerebral hemorrhage) (HCC) [I61.9] INVALID FOR* SDH (subdural hematoma) (HCC) [S06.5X9A] INVALID FOR* Midline shift of brain due to hematoma [G93.9] INVALID FOR* Fall [W19.XXXA] INVALID FOR* TBI (traumatic brain injury) (HCC) [S06.9X9A] INVALID FOR* Epidural hematoma (HCC) [S06.4X9A] INVALID FOR* More... Major depressive disorder, single episode, unsp*INVALID FOR* More... Vaginal bleeding [N93.9] INVALID FOR* More... Encounter Status:Closed by CHANTALE BARRON, MELISSA PHD on 12/01/18 CT HEAD W/O CONTRAST Observed: 12/01/2018 Status: F Source: [facility] [id number] 3:18 PM HEALTH SYSTEM REPOSITORY Performed at [facility] APPROVED BY: Tito Ross MD EXAMINATION: CT BRAIN WITHOUT CONTRAST HISTORY: History of fall in September 2018 with subarachnoid hemorrhage; no current complaints TECHNIQUE: Routine CT scan of the brain without contrast. Serial axial unenhanced images were obtained from the vertex to the foramen magnum. CT Radiation dose: Integrated Dose-length product (DLP) for this visit = 697 mGy*cm. CT Dose Reduction Employed: No dose reduction techniques were required. COMPARISON: CT brain 10/26/2018 RESULT: Post-operative change: None. Acute change: No evidence of an acute infarct or other acute parenchymal process. Hemorrhage: No evidence of acute intracranial hemorrhage. Mass effect / Mass lesion: There is no evidence of an intracranial mass or extraaxial fluid collection. No significant mass effect. Chronic change: None apparent. Ventricles: The ventricles are within normal limits of size and configuration for age. Paranasal sinuses and skull base: The visualized paranasal sinuses are clear. The skull base and imaged soft tissues are unremarkable. IMPRESSION: No acute intracranial abnormality. Previously demonstrated hemorrhage has resolved. No new abnormality. CBC AND DIFFERENTIAL Collected: 11/29/2018 Status: F Source: [facility] 10:24 AM [facility] REPOSITORY TYPE CODE TESTS RESULT OUT OF REFERENCE UNITS RANGE LAB WBC 3.70-11.00 k/uL Low WBC 2.30 LAB RBC 3.90-5.20 m/uL Low RBC 3.27 LAB HGB 11.5-15.5 g/dL Low Hemoglobin 9.4 LAB HCT 36.0-46.0 % Low Hematocrit 30.8 LAB MCV 80.0-100.0 fL MCV 94.2 LAB MCH 26.0-34.0 pG MCH 28.7 LAB MCHC 30.5-36.0 g/dL MCHC 30.5 LAB RDWCV 11.5-15.0 % RDW-CV High 16.9 LAB PLTCT 150-400 k/uL Low Platelet Count 87 Result Comment: No clot detected. LAB MPV 9.0-12.7 fL MPV 10.9 LAB ANEUT % Neut% 61.3 LAB AANEUT 1.45-7.50 k/uL Abs Low Neut 1.40 LAB ALYMP % Lymph% 30.9 LAB AALYMP 1.00-4.00 k/uL Abs Low Lymph 0.71 LAB AMONO % Medina% 4.8 LAB AAMONO <0.87 k/uL Abs Medina 0.11 LAB AEOS % Eosin% 2.6 LAB AAEOS <0.46 k/uL Abs Eosin 0.06 LAB ABASO % Baso% 0.4 LAB AABASO <0.11 k/uL Abs Baso <0.03 LAB AUNRBC 0 /100 WBC NRBCs 0.0 LAB ABNRBC <0.01 k/uL Absolute nRBC <0.01 LAB DTYP DTYPE Auto Diff Performed By: #### CBCDIF, BMP, LI #### [facility] [address] [place] [place] [id number] BASIC METABOLIC PANL Collected: 11/29/2018 Status: F Source: [facility] 10:24 AM [facility] REPOSITORY TYPE CODE TESTS RESULT OUT OF REFERENCE UNITS RANGE LAB GLU 74-99 mg/dL High Glucose 221 Result Comment: The [place] [employer] (ADA) provides guidance for cutoff [...] Standards of Medical Care in Diabetes 2016, [place] [employer]. Diabetes Care. 2016.39(Suppl 1). LAB BUN 7-21 mg/dL BUN 10 LAB CRET 0.58-0.96 mg/dL Creatinine 0.62 LAB NA 136-144 mmol/L Sodium 140 LAB K 3.7-5.1 mmol/L Potassium 4.4 LAB CL 97-105 mmol/L Chloride High 108 LAB CO2 22-30 mmol/L CO2 24 LAB AGAP 9-18 mmol/L Low Anion Gap 8 LAB CA 8.5-10.2 mg/dL Calcium, Total 9.2 LAB GFRAA eGFR- Amer. >60 LAB GFRNAA [...] reflect actual GFR. Performed By: #### CBCDIF, BAR, ANNABEL #### [facility] [employer] [address] [place], [place] [address] LITHIUM Collected: 11/29/2018 Status: F Source: [facility] 10:24 AM [facility] REPOSITORY TYPE CODE TESTS RESULT OUT OF REFERENCE UNITS RANGE LAB LI 0.6-1.2 mmol/L Low Coggon <0.1 Result Comment: Reference ranges and high/low indicator flags are provided as general guidelines only. The treating physician must determine appropriate target levels/dosing based on the specific clinical situation. Performed By: #### CBCDIF, BMP, LI #### [facility] [address] [place], [place] [address] 12 LEAD ELECTROCARDIOGRAM Observed: 11/27/2018 Status: F Source: [place] 1:30 PM [facility] REPOSITORY [facility] Cardiovascular Services [address] [place] [address] 12 Lead EKG 11/24/18 1101 MR#: [id number] Acct: [id number] Name: ELLI GUERRERO Rep #: [id number] : 1960 58 From: Geovany Guevara MD Attending Dr: Bonnie Tucker MD Status: DIS IN Ordering Dr: Uriel Saeed MD Date: 11/24/18 Location: [facility] Sex: F C Admitted: 11/24/18 Test Reason : Blood Pressure : / mmHG Vent. Rate : 057 BPM Atrial Rate : 057 BPM P-R Int : 162 ms QRS Dur : 104 ms QT Int : 464 ms P-R-T Axes : 058 -33 210 degrees QTc Int : 451 ms Sinus bradycardia Left axis deviation ST AND T wave abnormality, consider inferior ischemia ST AND T wave abnormality, consider anterolateral ischemia Abnormal ECG Confirmed by BHARATH BARRON, GEOVANY ([id number]), web editor JOSE J CARLSON ([id number]) on 11/27/2018 1:29:53 PM Referred By: ERMA Confirmed By:GEOVANY GUEVARA MD 11/27/18 1330 Date Geovany Guevara MD CC: Jorge Saeed MD; Bonnie Tucker MD; Yandel Bush MD Signed DISCHARGE SUMMARY Observed: 11/26/2018 Status: F Source: [place] 2:29 PM [facility] REPOSITORY [facility] Medical Records Department [address] [place] [address] Discharge Summary 11/26/18 0937 MR#: [id number] Acct: [id number] Name: ELLI GUERRERO Rep #: [id number] : 1960 58 From: Bonnie Tucker MD PCP: Yandel Bush MD Status: DIS IN Y [id number] Date and Diagnosis Date of Admission: 11/24/18 Date of Discharge: 11/26/18 - Primary Discharge Diagnosis hypokalemia hypotension - Secondary Discharge Diagnosis Chronic Problems Hypertension (Chronic) GERD (gastroesophageal reflux disease) (Chronic) Bipolar disorder (Chronic) Diabetes mellitus, type II (Chronic) Morbid obesity with BMI of 45.0-49.9, adult (Chronic) Hospital Course and Treatment Operations: None Procedures: None Summary of Care Provided: The patient is a 58 year old F with a past medical history of hypertension, GERD, bipolar disorder, morbid obesity and diabetes mellitus as well as recent intracranial bleed. She was admitted through the ED with a complaint of hypokalemia. Patient states she had blood work done by home health nurse about 3 days prior to admission. PCP called her on day of admission with the results and told her to come immediately to the ED as her potassium was low. She had no complaints and denied any lightheadedness or dizziness or palpitations, any chest pain, abdominal pain, diarrhea vomiting. Arrival in the ED, potassium was found to be 2.5. EKG showed mild ST depression in the inferior and hugo-lateral leads. She had no chest pain whatsoever, She was admitted to be managed for hypokalemia. Potassium was replaced and trended up slowly from 2.5-3 and then to 4. Patient was also noted to be hypotensive during this admission though she was asymptomatic. Blood pressure was in the 90s and 100s systolic. Her blood pressure medications were therefore held. She was also hydrated with IV fluids. She remained asymptomatic and was stable. She was discharged on 11/26/2018 with a prescription for p.o. potassium. Blood pressure medications were also stopped on account of asymptomatic hypotension and she is to follow-up with her primary care doctor to decide if and when her blood pressure medications are to be resumed. Patient seen and examined prior to discharge. She had no complaints and felt well and was anxious to go home. She denied any fever, any chills, any cough or chest pain, shortness of breath, any abdominal pain palpitations or dizziness or lightheadedness, any diarrhea vomiting. Review of systems otherwise negative. Labs and vitals reviewed. Home medications reviewed and reconciled. Orthostatics were checked and were negative. o/e: Vital Signs Height 5 ft 5 in Weight: 223 lb 8.78 oz Weight in Pounds 223.5 lbs Pulse Ox 96 [] General: Alert, Oriented x3, Cooperative, No apparent distress HEENT: Atraumatic, PERRLA, EOMI, Normocephalic Oral: Moist Mucosa Neck: Supple, No JVD, Negative Carotid Bruits Abdomen: Bowel Sounds Present, Soft, Non Tender, Non-Distended, No Hepato-splenomegaly Extremities: No clubbing, No cyanosis, No edema, Capillary Refill Less than 3 Seconds Lymphatic: No Cervical, Supraclavicular, or Inguinal Adenopathy Neurological: Cranial nerves II-XII grossly intact Psych/Mental Status: Normal Affect, Appropriate, Alert and oriented to time, place, person, mood and affect [] Plan as stated above. She is also to follow-up with her primary care doctor for repeat BMP to monitor potassium levels within 1 week. - Physical Exam Vital Signs Temp Pulse Resp BP Pulse Ox 97.8 F 70 18 91/39 L 96 11/26/18 09:00 11/26/18 09:00 11/26/18 09:00 11/26/18 09:00 11/26/18 09:00 Oxygen Delivery Method Room Air Weight: 223 lb 8.78 oz Body Mass Index (BMI) 37.2 Intake and Output for Last 24 Hours Intake Total 2423 / 2423 1274 / 1274 Balance 2423 / 2423 1274 / 1274 Laboratory Tests Past 24 Hrs Sodium 141 Potassium 4.0 Chloride 110 H Carbon Dioxide 24.0 Anion Gap 7 BUN 7 Discharge Diet: Low fat/ Low Cholesterol Discharge Activity: Return to Normal Activity Weight Bearing Status: Weight bearing as tolerated Call your doctor if you observe: Dizziness, Fainting spells Home Medications: Medications to take at Discharge Glimepiride 4 mg PO DAILY 03/27/15 Metformin HCl [Glucophage] 500 mg PO BIDCM 03/27/15 Nitrostat 0.4 mg SL PRN PRN 03/27/15 Protonix 40 mg PO DAILY 03/27/15 Zoloft 150 mg PO DAILY 03/27/15 Dapagliflozin Propanediol [Farxiga] 10 mg PO DAILY 10/20/18 Ferrous Gluconate 324 mg PO BID 10/20/18 Hydroxychloroquine [Plaquenil] 200 mg PO BIDCM 10/20/18 Coggon Carbonate [Coggon Carbonate ER] 1 tab PO DAILY 11/24/18 Coggon Carbonate [Coggon Carbonate ER] 2 tab PO QHS 11/24/18 Ondansetron HCl [Zofran] 4 mg PO Q6H PRN PRN 11/24/18 Potassium Chloride [Klor-Con] 20 meq PO BID #60 packet 11/26/18 Following Prescrptions Were Given to Patient: Potassium Chloride [Klor-Con] 20 meq PO BID #60 packet Primary Care Physician: Yandel Bush MD [Primary Care Provider] - Please follow up with your Primary Care Physician in: one week Patient Instructions: Discharge Instructions for Hypokalemia, Discharge Instructions: Eating a High Potassium Diet Medical Necessity - Tobacco Use Smoking Status: Former smoker Tobacco Use: Non-smoker Meaningful Use Info Meaningful Use Diagnoses (Choose all that apply): None applicable Code Visit Inpatient E AND M: [id number] Disch Hosp 11/26/18 1429 <Electronically signed by Bonnie Tucker MD> Date Bonnie Tucker MD Cosigner Signature (if applicable): Date CC: Bonnie Tucker MD; Yandel Bush MD Signed DISCHARGE INSTRUCTION Observed: 11/26/2018 Status: F Source: SHARI 9:37 AM [facility] REPOSITORY [facility] Medical Records Department [address] [place] [address] Instructions for Home/Discharge Instructions 11/26/18 0934 MR#: [id number] Acct: [id number] Name: ELLI GUERRERO Rep #: [id number] : 1960 58 From: Bonnie Tucker MD PCP: Yandel Bush MD Status: ADM IN You will use the following diet at home:: Cardiac Your food should be the consistency of: Regular Your liquids should be the consistency of: Regular/Thin Discharge Activity: Return to Normal Activity Weight Bearing Status: Weight bearing as tolerated Call your doctor if you observe: Dizziness, Fainting spells Instructions: Discharge Instructions for Hypokalemia, Discharge Instructions: Eating a High Potassium Diet Additional Instructions: please follow up with PCP for repeat BMP to check potassium level within one week. BP meds stopped o/a of hypotension. Follow with PCP to decide whether to resume them. Keep hydrated at home and eat high potassium diet Allergies/Adverse Reactions: Allergies No Known Allergies Allergy (Verified 11/24/18 10:25) Medications to take at Discharge Glimepiride 4 mg PO DAILY 03/27/15 Metformin HCl [Glucophage] 500 mg PO BIDCM 03/27/15 Nitrostat 0.4 mg SL PRN PRN 03/27/15 Protonix 40 mg PO DAILY 03/27/15 Zoloft 150 mg PO DAILY 03/27/15 Dapagliflozin Propanediol [Farxiga] 10 mg PO DAILY 10/20/18 Ferrous Gluconate 324 mg PO BID 10/20/18 Hydroxychloroquine [Plaquenil] 200 mg PO BIDCM 10/20/18 Coggon Carbonate [Coggon Carbonate ER] 1 tab PO DAILY 11/24/18 Coggon Carbonate [Coggon Carbonate ER] 2 tab PO QHS 11/24/18 Ondansetron HCl [Zofran] 4 mg PO Q6H PRN PRN 11/24/18 Potassium Chloride [Klor-Con] 20 meq PO BID #60 packet 11/26/18 The following prescriptions were given: Potassium Chloride [Klor-Con] 20 meq PO BID #60 packet Primary Care Physician: Yandel Bush MD [Primary Care Provider] - Please follow up with your Primary Care Physician in: one week Test Results: Test results from this visit will be discussed in further detail at your follow-up appointment, if applicable. Proposed Discharge Date: 11/26/18 11/26/18 0937 <Electronically signed by Bonnie Tucker MD> Date Bonnie Tucker MD CC: Yandel Bush MD Signed MAGNESIUM Collected: 11/26/2018 Status: F Source: SHARI 8:00 AM [facility] REPOSITORY TYPE CODE TESTS RESULT OUT OF RANGE REFERENCE UNITS LAB L501.5200 1.6-2.6 mg/dL Normal MG 1.8 Performed By: #### L501.5200 #### [facility] [address] [place] [place], [address] BASIC METABOLIC Collected: 11/26/2018 Status: F Source: [place] PROFILE (BMP) 8:00 AM [facility] REPOSITORY TYPE CODE TESTS RESULT OUT OF RANGE REFERENCE UNITS LAB L501.0100 74-106 mg/dL High GLU 172 Result Comment: Fasting Glucose result greater than or equal to 126 mg/dL suggests DIABETES MELLITUS per A.D.A. criteria. Please note revised GLUCOSE reference range effective 2017. LAB L501.1000 7-18 mg/dL Normal BUN 7 LAB L501.1100 0.55-1.02 mg/dL Normal CREAT,SERUM 0.68 Result Comment: The validity of the calculated GFR AND GFRAA in patients over 70 years has not been determined. Clinical correlation is essential. LAB L501.1110 >60 mL/min Normal EST GFR 93 Result Comment: Non- GFR Calc LAB L501.1115 >60 mL/min Normal EST GFR - AA 113 Result Comment: GFR Calc LAB L501.1255 ml/min Normal Estimated CRCL 80.16 LAB L501.1300 10-20 RATIO Normal BUN/CRE 10.2 LAB L501.2200 8.5-10 mg/dL Normal .1 CA 8.7 LAB L501.5300 136-14 mmol/L Normal 5 NA 141 LAB L501.5600 3.5-5. mmol/L Normal 1 K 4.0 LAB L501.5900 98-107 mmol/L High CL 110 LAB L501.6100 21.0-3 mmol/L Normal 2.0 CO2 24.0 LAB L501.6200 5-15 Normal GAP 7 Performed By: #### L500.2500 #### [facility] [place], [address] CBC W/DIFF, AUTOMATED Collected: 11/25/2018 Status: F Source: [place] 6:41 AM [facility] REPOSITORY TYPE CODE TESTS RESULT OUT OF RANGE REFERENCE UNITS LAB L100.1000 4.4-11.0 K/mm3 Low WBC 2.6 LAB L100.1200 4.2-5.4 M/mm3 Low RBC 3.35 LAB L100.1300 12.0-15.0 g/dl Low HGB 9.9 LAB L100.1400 37-47 % Low HCT 29.8 LAB L100.1500 81-99 fL Normal MCV 89.0 LAB L100.1600 27.0-32.0 pg Normal MCH 29.6 LAB L100.1700 32-36 g/gl Normal MCHC 33.2 LAB L100.1810 11.6-14.6 % High RDW CV 15.8 LAB L100.1820 35.1-43.9 fl High RDW SD 49.8 LAB L100.1900 150-450 K/mm3 Low PLT 85 LAB L100.2000 6.2-12.0 fl Normal MPV 10.5 LAB L100.2100 47-70 % Low NEUT% 44.1 LAB L100.2200 19-41 % High LY% 46.8 LAB L100.2300 0-10 % Normal MONO% 7.2 LAB L100.2400 0-5 % Normal EO% 1.9 LAB L100.2500 0-1 % Normal BASO% 0.0 LAB L100.2550 0.0-0.9 % Normal IM GRAN % 0.000 Result Comment: IG% - Immature Granulocytes (promyelocytes, myelocytes and metamyelocytes) > 1% indicates that a LEFT SHIFT is Present. LAB L100.2620 2.0-7.7 X10 3/uL Low Absolute Neut 1.2 LAB L100.2720 0.83-4.51 X10 3/ul Normal Absolute Lymph 1.23 Performed By: #### L100.0100 #### [facility] [address] [place], [address] BASIC METABOLIC Collected: 11/25/2018 Status: F Source: SHARI PROFILE (BMP) 6:41 AM [facility] REPOSITORY TYPE CODE TESTS RESULT OUT OF RANGE REFERENCE UNITS LAB L501.0100 74-106 mg/dL Normal GLU 104 Result Comment: Fasting Glucose result from 100 to 125 mg/dL suggests IMPAIRED HOMEOSTASIS per A.D.A. criteria. Please note revised GLUCOSE reference range effective 2017. LAB L501.1000 7-18 mg/dL Low BUN 6 LAB L501.1100 0.55-1.02 mg/dL Normal CREAT,SERUM 0.62 Result Comment: The validity of the calculated GFR AND GFRAA in patients over 70 years has not been determined. Clinical correlation is essential. LAB L501.1110 >60 mL/min Normal EST GFR 106 Result Comment: Non- GFR Calc LAB L501.1115 >60 mL/min Normal EST GFR - AA 128 Result Comment: GFR Calc LAB L501.1255 ml/min Normal Estimated CRCL 87.91 LAB L501.1300 10-20 RATIO Low BUN/CRE 9.8 LAB L501.2200 8.5-10 mg/dL Normal .1 CA 9.1 LAB L501.5300 136-14 mmol/L Normal 5 NA 145 LAB L501.5600 3.5-5. mmol/L Low 1 K 3.0 LAB L501.5900 98-107 mmol/L High CL 109 LAB L501.6100 21.0-3 mmol/L Normal 2.0 CO2 28.0 LAB L501.6200 5-15 Normal GAP 8 Performed By: #### L500.2500, L501.5200 #### [facility] [address] [place], [place], [address] MAGNESIUM Collected: 11/25/2018 Status: F Source: SHARI 6:41 AM [facility] REPOSITORY TYPE CODE TESTS RESULT OUT OF RANGE REFERENCE UNITS LAB L501.5200 1.6-2.6 mg/dL Normal MG 2.2 Performed By: #### L500.2500, L501.5200 #### [facility] [address] [place], [address] BASIC METABOLIC Collected: 11/24/2018 Status: F Source: SHARI PROFILE (BMP) 5:00 PM [facility] REPOSITORY TYPE CODE TESTS RESULT OUT OF RANGE REFERENCE UNITS LAB L501.0100 74-106 mg/dL High GLU 145 Result Comment: Fasting Glucose result greater than or equal to 126 mg/dL suggests DIABETES MELLITUS per A.D.A. criteria. Please note revised GLUCOSE reference range effective 2017. LAB L501.1000 7-18 mg/dL Normal BUN 7 LAB L501.1100 0.55-1.02 mg/dL Normal CREAT,SERUM 0.80 Result Comment: The validity of the calculated GFR AND GFRAA in patients over 70 years has not been determined. Clinical correlation is essential. LAB L501.1110 >60 mL/min Normal EST GFR 78 Result Comment: Non- GFR Calc LAB L501.1115 >60 mL/min Normal EST GFR - AA 95 Result Comment: GFR Calc LAB L501.1255 ml/min Normal Estimated CRCL 68.13 LAB L501.1300 10-20 RATIO Low BUN/CRE 8.8 LAB L501.2200 8.5-10 mg/dL Normal .1 CA 9.0 LAB L501.5300 136-14 mmol/L Normal 5 NA 141 LAB L501.5600 3.5-5. mmol/L Low 1 K 2.8 LAB L501.5900 98-107 mmol/L Normal CL 106 LAB L501.6100 21.0-3 mmol/L Normal 2.0 CO2 28.0 LAB L501.6200 5-15 Normal GAP 7 Performed By: #### L500.2500 #### [facility] [address] [place], [address] HISTORY AND PHYSICAL Observed: 11/24/2018 Status: F Source: SHARI EXAM 4:13 PM [facility] REPOSITORY [facility] Medical Records Department [address] [place] [address] History and Physical 11/24/18 1222 MR#: [id number] Acct: [id number] Name: ELLI GUERRERO Rep #: [id number] : 1960 58 From: Bonnie Tucker MD PCP: Yandel Bush MD Status: ADM IN Y Location: [place] [address] History of Present Illness Date of Admission: 11/24/18 Chief Complaint: hypokalemia The patient is a 58 year old F medical history of hypertension, GERD, bipolar disorder, morbid obesity and diabetes mellitus as well as recent intracranial bleed. She was admitted through the ED with a complaint of hypokalemia. Patient states she had blood work done by home health nurse about 3 days ago. PCP called her today with the results and told her to come immediately to the ED as her potassium was low. She had no complaints and denied any lightheadedness or dizziness or palpitations, any chest pain, abdominal pain, diarrhea vomiting. Arrival in the ED, potassium was found to be 2.5. EKG showed mild ST depression in the inferior and hugo-lateral leads. She had no chest pain whatsoever, She is being admitted to be managed for hypokalemia. [] Past Medical History Past Medical History (Chronic Problems): Chronic Problems Hypertension (Chronic) GERD (gastroesophageal reflux disease) (Chronic) Bipolar disorder (Chronic) Diabetes mellitus, type II (Chronic) Morbid obesity with BMI of 45.0-49.9, adult (Chronic) Allergies No Known Allergies Allergy (Verified 11/24/18 10:25) Home Medications: Ambulatory Orders Medication Instructions Recorded Glimepiride 4 mg PO DAILY 03/27/15 Hydrochlorothiazide [Hctz] 12.5 mg PO DAILY 03/27/15 Surgical History: - - Right foot surgery, hysterectomy, appendectomy, cholecystectomy, bilateral tubal ligation, bilateral total hip repair. Psychiatric History: Bipolar [employer] History: No pertinent [employer] history Lives: With Family Smoking Status: Former smoker Tobacco Use: Non-smoker Alcohol: Occasional Drugs: None - *Family History Maternal History Items: Diabetes, Hypertension Paternal History Items: Cancer - Father with lung cancer, prior history of tobacco use., Diabetes, Heart Disease, Hypertension Review of Systems Constitutional: Denies: Chills, Fever, Malaise, Weakness, Weight Change HEENT: Denies: Head Aches, Sinus Congestion, Sinus Drainage Cardiovascular: Denies: Chest Pain, Palpitations Respiratory: Denies: Cough, Shortness of Breath, Shortness of breath at rest, Sputum production Gastrointestinal: Denies: Abdominal Pain, Nausea, Vomiting Genitourinary: Denies: Dysuria Musculoskeletal: Denies: Joint Pain, Joint Tenderness Skin: Denies: Rash, Wounds Neurological: Denies: Numbness, Tingling, Focal weakness Psychiatric: Denies: Anxiety, Depression, Homicidal Ideations, Suicidal Ideations Hematologic/ Lymphatic: Denies: Easy Bruising, Easy Bleeding VTE Information - Inpt Only VTE Present on Admission: No VTE Mechan Device Prophylaxis: SCD's - Physical Exam General: Alert, Oriented x3, Cooperative, No apparent distress HEENT: Atraumatic, PERRLA, EOMI, Normocephalic Oral: Moist Mucosa Neck: Supple, No JVD, Negative Carotid Bruits Abdomen: Bowel Sounds Present, Soft, Non Tender, Non-Distended, No Hepato-splenomegaly Extremities: No clubbing, No cyanosis, No edema, Capillary Refill Less than 3 Seconds Lymphatic: No Cervical, Supraclavicular, or Inguinal Adenopathy Neurological: Cranial nerves II-XII grossly intact Psych/Mental Status: Normal Affect, Appropriate, Alert and oriented to time, place, person, mood and affect Vital Signs Temp Pulse Resp BP Pulse Ox 97.9 F 79 16 105/46 L 99 11/24/18 10:42 11/24/18 10:42 11/24/18 10:42 11/24/18 10:42 11/24/18 10:42 Oxygen Delivery Method Room Air Weight: 222 lb Body Mass Index (BMI) 36.9 Laboratory Tests Past 24 Hrs WBC 4.2 L RBC 3.85 L Hgb 11.2 L Hct 33.0 L MCV 85.7 MCH 29.1 MCHC 33.9 RDW 15.7 H RDW Differential 48.8 H Assessment/Plan 58 y.o female presenting with a complaint of hypokalemia 1. Hypokalemia * potassium is 2.5; Mg is 2.1 * cause of hypokalemia currently unclear; she says she has had decreased intake and also had some nausea, vomiting and diarrhea in the past, though this is now resolved * is on HCTZ, which could contribute to hypokalemia * admit to PCU with telemetry * replace with IV potassium and monitor * 2. Diabetes mellitus; on glimepiride, dapaglifloxin and metformin. ISS Accuchecks ACHS 3. Hypertension: on HCTZ and metoprolol. will hold o/a of BP of 93/43 on arrival to floor 4. Hypotension: as under 3. Will give bolus of IVF NS 500c and continue hydrating with NS 75cc/hr x 1 bag 5. Bipolar disorder: Coggon 6. History of intracranial bleed: * Patient states she recently had intracranial bleed and so has been off blood thinners for A. fib. * Currently rate controlled. Will monitor. * 7. Afib: rate and rhythm controlled. On metoprolol 8. SLE and psoriasis: On Plaquenil DVT prophylaxis: SCDs Code Visit OBSV E AND M: [id number] Initial observation care L3 11/24/18 1613 <Electronically signed by Bonnie Tucker MD> Date Bonnie Tucker MD Cosigner Signature: Date (if applicable) CC: Bonnie Tucker MD; Yandel Bush MD Signed EMERGENCY DEPARTMENT Observed: 11/24/2018 Status: F Source: [place] SUMMARY 1:07 PM [facility] REPOSITORY [facility] Medical Records Department [address] [place] [address] Emergency Department Summary 11/24/18 1305 MR#: [id number] Acct: [id number] Name: ELLI GUERRERO Rep #: [id number] : 1960 58 From: Uriel Saeed MD PCP: Yandel Bush MD Status: ADM IN - ER Visit Summary Date of Service: 11/24/18 Chief Complaint: [abnormal labs] History of Present Illness: The patient is a 58 F [that was sent due to abnormal outpatient labs. She believes her potassium is low. She feels generally weak and fatigued but otherwise has no other symptoms. She has no other complaints.] Physical Examination: [General: The patient appears well and in no apparent distress. Patient is resting comfortably on cart. Skin: Warm, dry, no pallor noted. No rash. Head: Normocephalic, atraumatic Neck: Supple, nontender. Eye: PERRLA, EOMI ENT: Moist mucus membranes, pharynx within normal limits. Cardiovascular: Regular Rate and Rhythm, no gallups or rubs Respiratory: Patient is in no distress, no accessory muscle use, lungs are clear to auscultation, no wheezing, rales or rhonchi Musculoskeletal: normal ROM, no deformity, no tenderness, no swelling. 2+ radial and DP pulses symmetric. GI: No tenderness to palpation, no masses appreciated. No rebound, guarding, or rigidity noted. Neurological: A AND O, normal strength and sensation. Psychiatric: Cooperative] Test Results: [] Emergency Department Course and Treatment: [EKG shows sinus rhythm with a rate of 57, there are what appears to be Q waves indicative of hypokalemia. No acute ischemic changes or arrhythmia. Potassium 2.5. Remainder blood work overall unremarkable. She was ordered IV potassium repletion. I feel she will need to be admitted for further repletion and evaluation. Patient discussed with hospitalist, Dr. Tucker, who is agreeable with admission. Patient admitted in stable condition.] Treatment Plan: [see above] Disposition: [admission] Impression: [Hypokalemia, EKG Changes] This note was generated with [employer] dictation software. It may contain incorrect words, spelling, and punctuation that were not noted in review of the chart prior to signing ED Disposition - Plan for ED Patient: Chief Complaint: Abn Labs What to do if you have Problems For any increased pain, shortness of breath, bleeding, nausea or vomiting, chest pain, or any unexpected problems, contact your Primary Care Provider. Call [facility] ([phone]) or report to the closest Emergency Room. Call 911 if necessary. 11/24/18 1307 <Electronically signed by Uriel Saeed MD> Date Uriel Saeed MD Cosigner Signature (If Indicated): Date CC: Yandel Bush MD CBC W/DIFF, AUTOMATED Collected: 11/24/2018 Status: F Source: SHARI 11:10 AM [facility] REPOSITORY TYPE CODE TESTS RESULT OUT OF RANGE REFERENCE UNITS LAB L100.1000 4.4-11.0 K/mm3 Low WBC 4.2 LAB L100.1200 4.2-5.4 M/mm3 Low RBC 3.85 LAB L100.1300 12.0-15.0 g/dl Low HGB 11.2 LAB L100.1400 37-47 % Low HCT 33.0 LAB L100.1500 81-99 fL Normal MCV 85.7 LAB L100.1600 27.0-32.0 pg Normal MCH 29.1 LAB L100.1700 32-36 g/gl Normal MCHC 33.9 LAB L100.1810 11.6-14.6 % High RDW CV 15.7 LAB L100.1820 35.1-43.9 fl High RDW SD 48.8 LAB L100.1900 150-450 K/mm3 Low PLT 93 LAB L100.2000 6.2-12.0 fl Normal MPV 9.9 LAB L100.2100 47-70 % High NEUT% 74.0 LAB L100.2200 19-41 % Low LY% 17.1 LAB L100.2300 0-10 % Normal MONO% 7.2 LAB L100.2400 0-5 % Normal EO% 1.7 LAB L100.2500 0-1 % Normal BASO% 0.0 LAB L100.2550 0.0-0.9 % Normal IM GRAN % 0.000 Result Comment: IG% - Immature Granulocytes (promyelocytes, myelocytes and metamyelocytes) > 1% indicates that a LEFT SHIFT is Present. LAB L100.2620 2.0-7.7 X10 3/uL Normal Absolute Neut 3.1 LAB L100.2720 0.83-4.51 X10 3/ul Low Absolute Lymph 0.71 Performed By: #### L100.0100 #### [facility] [address] [place], [place], [id number] BASIC METABOLIC Collected: 11/24/2018 Status: F Source: SHARI PROFILE (BMP) 11:10 AM [facility] REPOSITORY TYPE CODE TESTS RESULT OUT OF RANGE REFERENCE UNITS LAB L501.0100 74-106 mg/dL High GLU 221 Result Comment: Glucose result greater than or equal to 200 mg/dL suggests DIABETES MELLITUS per A.D.A. criteria. Please note revised GLUCOSE reference range effective 2017. LAB L501.1000 7-18 mg/dL Normal BUN 8 LAB L501.1100 0.55-1.02 mg/dL Normal CREAT,SERUM 0.97 Result Comment: The validity of the calculated GFR AND GFRAA in patients over 70 years has not been determined. Clinical correlation is essential. LAB L501.1110 >60 mL/min Normal EST GFR 63 Result Comment: Non- GFR Calc LAB L501.1115 >60 mL/min Normal EST GFR - AA 76 Result Comment: GFR Calc LAB L501.1255 ml/min Normal Estimated CRCL 56.19 LAB L501.1300 10-20 RATIO Low BUN/CRE 8.3 LAB L501.2200 8.5-10 mg/dL Normal .1 CA 9.4 LAB L501.5300 136-14 mmol/L Normal 5 NA 139 LAB L501.5600 3.5-5. mmol/L Low 1 K alert 2.5 Result Comment: Critical Result(s) Called to ARMAND Duncan at: 11:54:05 11/24/2018 by: Major LAB L501.5900 98-107 mmol/L Normal CL 100 LAB L501.6100 21.0-32.0 mmol/L Normal CO2 29.0 LAB L501.6200 5-15 Normal GAP 10 Performed By: #### L500.2500, L501.5200 #### [facility] [address] [place], [place], [address] MAGNESIUM Collected: 11/24/2018 Status: F Source: SHARI 11:10 AM [facility] REPOSITORY TYPE CODE TESTS RESULT OUT OF RANGE REFERENCE UNITS LAB L501.5200 1.6-2.6 mg/dL Normal MG 2.1 Performed By: #### L500.2500, L501.5200 #### [facility] [address] [place], [address] URINALYSIS WITH Collected: 11/21/2018 Status: F Source: [place]OTT MICROSCOPIC 3:42 PM [facility] REPOSITORY TYPE CODE TESTS RESULT OUT OF RANGE REFERENCE UNITS LAB UCOL Yellow Color Yellow LAB [facility] Clear Clarity Abnormal Cloudy Alert LAB UGLUC Negative mg/dL Glucose, Abnormal Urine 150 Alert LAB UBIL Negative Bilirubin, Urine Negative LAB UKET Negative Ketones, Abnormal Urine Trace Alert LAB USPG 1.005-1.030 Specific [place], Ur 1.018 LAB UHGB Negative Hemoglobin/Blood, Negative Ur LAB UPH 4.5-8.0 pH 7.0 LAB UPROT Negative mg/dL Protein, Abnormal Urine 30 Alert LAB UUROB Normal Urobilinogen Normal LAB UNITR Negative Nitrites Negative LAB ULKEST Negative Leukest Negative LAB UCOM Comments SEE COMMENT Result Comment: N/A LAB UMCOM Urine SEE Miguel Comment COMMENT Result Comment: N/A LAB UWBC 0-5 /HPF WBC 0-5 LAB URBC 0-3 /HPF RBC 0-3 LAB UCAST 0 /LPF Abnormal Alert Cast SEE COMMENT Result Comment: 4-10 Hyaline Cast LAB UEPI /HPF Epithelial SEE Cells COMMENT Result Comment: Few Squamous Epithelial Cells Performed By: #### UAWMIC #### [facility] [employer] [address] [place], [place] [address] Observed: 11/21/2018 Status: F Source: SCOTT URINE CULTURE 3:41 PM [facility] REPOSITORY Sp. Request/Comment: - Specimen received in preservative Culture Result - 10,000 - <50,000 CFU/ml Three or more organisms, no one type predominant, suggesting contamination during collection. Recollect if clinically indicated. Performed By: #### URCUL #### [facility] [employer] [address] [place], [place] [address] LITHIUM Collected: 11/21/2018 Status: F Source: SCOTT 3:37 PM [facility] REPOSITORY TYPE CODE TESTS RESULT OUT OF REFERENCE UNITS RANGE LAB LI 0.6-1.2 mmol/L High Coggon 1.4 Result Comment: Reference ranges and high/low indicator flags are provided as general guidelines only. The treating physician must determine appropriate target levels/dosing based on the specific clinical situation. Performed By: #### LI #### [facility] [employer] [address] [place], [place] [address] BASIC METABOLIC PANL Collected: 11/21/2018 Status: F Source: SCOTT 3:37 PM [facility]IN WITHAMS REPOSITORY TYPE CODE TESTS RESULT OUT OF REFERENCE UNITS RANGE LAB GLU 74-99 mg/dL High Glucose 135 Result Comment: The [place] Diabetes Association (ADA) provides guidance for cutoff [...] Standards of Medical Care in Diabetes 2016, [place] [employer]. Diabetes Care. 2016.39(Suppl 1). LAB BUN 7-21 mg/dL BUN 8 LAB CRET 0.58-0.96 mg/dL Creatinine 0.85 LAB NA 136-144 mmol/L Sodium 136 LAB K 3.7-5.1 mmol/L Potassium Low 2.5 LAB CL 97-105 mmol/L Chloride Low 93 LAB CO2 22-30 mmol/L CO2 26 LAB AGAP 9-18 mmol/L Anion Gap 17 LAB CA 8.5-10.2 mg/dL Calcium, Total 10.1 LAB GFRAA eGFR- Amer. >60 LAB GFRNAA [...] accurately reflect actual GFR. Performed By: #### BMP, VITD #### [facility] [address] [place], [place] [address] VITAMIN D 25 HYDROXY Collected: 11/21/2018 Status: F Source: SCOTT 3:37 PM [facility] REPOSITORY TYPE CODE TESTS RESULT OUT OF REFERENCE UNITS RANGE LAB VITD 31.0-80.0 ng/mL Low Vitamin D 25 13.8 Hydroxy Result Comment: Classification of 25 [place] Vitamin D status: Insufficiency/Moderate Deficiency: < or = 30 ng/mL Sufficiency/Optimal Levels: 31 to 80 ng/mL Toxicity: > 100 ng/mL Test performed by chemiluminescent immunoassay. Performed By: #### BMP, VITD #### [facility] [address] [place], [place] [address] LITHIUM Collected: 11/14/2018 Status: F [facility] REPOSITORY TYPE CODE TESTS RESULT OUT OF REFERENCE UNITS RANGE LAB LITHIUM(CARA 0.6 - 1.2 mmol/L NC) LITHIUM 0.7 Performed By: #### [id number] #### [facility],[address] [place] [address] CBC (NO DIFF) Collected: 11/10/2018 Status: F Source: [facility]E [place] 5:29 AM [facility] REPOSITORY TYPE CODE TESTS RESULT OUT [...] 8.5 Result Comment: {CB] Performed By: #### [id number] #### [place] [address] LITHIUM Collected: 11/10/2018 Status: F Source: [facility]E [place] 5:29 AM [facility] REPOSITORY TYPE CODE TESTS RESULT OUT OF REFERENCE UNITS RANGE LAB LITHIUM(CARA 0.6 - 1.2 mmol/L NC) LITHIUM 0.9 Performed By: #### [id number] #### [place] [address] URINALYSIS Collected: 11/07/2018 Status: F Source: [place]E [place] 3:10 PM [facility] REPOSITORY TYPE CODE TESTS RESULT OUT [...] NORMAL: NORMAL Urobilinog Abnormal 4 LAB Sp Eden(LOINC) NORMAL: 1.010-1.030 Sp Eden 1.025 LAB Nitrite(LOINC) NORMAL: NEGATIVE Nitrite NEG [...] LAB Yeast(LOINC) Yeast NONE Performed By: #### [id number] #### [place] [address] CBC Collected: 11/07/2018 Status: F Source: [place] [place] 2:40 PM [facility] REPOSITORY TYPE CODE TESTS RESULT OUT [...] x10EE3/U L Neut # High 14.80 LAB Medina #(LOINC) 0.20 - 1.00 x10EE3/U L [place]ina # 0.90 LAB EO #(LOINC) 0.00 - 0.50 x10EE3/U L EO # 0.50 LAB Baso #(LOINC) 0.00 - 0.10 x10EE3/U L Baso # 0.10 LAB MANUAL DIFF(LOINC) MANUAL DIFF N/A LAB MORPHOLOGY(LOINC ) MORPHOLOGY N/A Result Comment: {CD] Performed By: #### [id number] #### [facility],[address] [place] [address] CMP WITH EGFR Collected: 11/07/2018 Status: F Source: [facility]E [place] 2:40 PM [facility] REPOSITORY TYPE CODE TESTS RESULT OUT [...] OF AGE AND OLDER. Performed By: #### [id number] #### [facility],[address] [place] [address] LITHIUM Collected: 11/07/2018 Status: F Source: [facility] 2:40 PM [facility] REPOSITORY TYPE CODE TESTS RESULT OUT OF REFERENCE UNITS RANGE LAB LITHIUM(CARA 0.6 - 1.2 mmol/L NC) High LITHIUM 2.0 Performed By: #### [id number] #### [facility],[address] [place] [address] EMERGENCY DEPARTMENT Observed: 11/02/2018 Status: F Source: [place] SUMMARY 7:04 AM [facility] REPOSITORY [facility] Medical Records Department [address] [place] [address] Emergency Department Summary 11/02/18 0657 MR#: [id number] Acct: [id number] Name: ELLI GUERRERO Rep #: [id number] : 1960 58 From: Dylon Owens MD [...] active. Week prior she was admitted to [facility] for a subdural hematoma. She had a [...] that the epidural and subarachnoid hemorrhage or [facility] was contacted. Spoke with the nurse at transfer center. Eventually spoke with the neurosurgeon/trauma surgeon who was aware of her and accepted her. Because of evidence of increased intracranial pressure she did receive 0.5 mg/kg of mannitol. Disposition: Transfer neuro ICU [facility] Impression: 1. Epidural hematoma 2. Subarachnoid hemorrhage 3. Left basal ganglion infarct, new finding 4. Tentorial subdural hematoma, stable This note was generated with [employer] dictation software. It may contain incorrect words, spelling, and punctuation that were not noted in review of the chart prior to signing ED Disposition - Plan for ED Patient: Disposition: [facility] Chief Complaint: Nausea/Vomiting Referrals: Yandel Bush MD [Primary Care Provider] - What to do if you have Problems For any increased pain, shortness of breath, bleeding, nausea or vomiting, chest pain, or any unexpected problems, contact your Primary Care Provider. Call [facility] ([phone]) or report to the closest Emergency Room. Call 911 if necessary. 11/02/18 0704 <Electronically signed by Dylon Owens MD> Date Dylon Owens MD Cosigner Signature (If Indicated): Date CC: Yandel Bush MD LITHIUM Collected: 11/01/2018 Status: F Source: [facility] 8:11 PM [facility] REPOSITORY TYPE CODE TESTS RESULT OUT OF REFERENCE UNITS RANGE LAB LITHIUM(CARA 0.6 - 1.2 mmol/L NC) High LITHIUM 1.3 Performed By: #### [id number] #### [facility],[address] [place] [address] CT ANGIOGRAPHY HEAD Observed: 10/30/2018 Status: F Source: DOE [place] W/CONTRAST 7:32 PM [facility] REPOSITORY [place] [address] Patient: ELLI GUERRERO Phone#: : 1960 Age: 58 Gender: F Pt. Type: ER Account: [id number] Location: 052 Ordering: DR. FCO DE LEÓN Exam Date: 10/30/2018/19:09 Family Phys: YANDEL BUSH Charge Code: 616228 Physician: [place] Order #: [id number] DLP Dose#: PROCEDURE: CT ANGIOGRAPHY HEAD WITH CONTRAST COMPARISON: [facility], CT, BRAIN W/O CON, 10/30/2018, 17:16. [...] 58 Gender: F Pt. Type: ER Account: [id number] Location: 052 Ordering: DR. FCO DE LEÓN Exam Date: 10/30/2018/19:09 Family Phys: YANDEL BUSH Charge Code: [id number] Physician: [place] Order #: [id number] DLP Dose#: Dictated by: Lupe Azevedo MD on 10/30/2018 at 20:03 Approved by: Lupe Azevedo MD on 10/30/2018 at 20:03 CBC Collected: 10/30/2018 Status: F Source: [place] 5:55 PM [facility] REPOSITORY TYPE CODE TESTS RESULT OUT [...] x10EE3/U L Neut # High 9.00 LAB [place]ina #(LOINC) 0.20 - 1.00 x10EE3/U L [place]ina # 0.70 LAB EO #(LOINC) 0.00 - 0.50 x10EE3/U L EO # 0.30 LAB Baso #(LOINC) 0.00 - 0.10 x10EE3/U L Baso # 0.10 LAB MANUAL DIFF(LOINC) MANUAL DIFF N/A LAB MORPHOLOGY(LOINC ) MORPHOLOGY N/A Result Comment: {CD] Performed By: #### [id number] #### [facility],[address] [place] [address] BMP WITH EGFR Collected: 10/30/2018 Status: F Source: [facility] 5:55 PM [facility] REPOSITORY TYPE CODE TESTS RESULT OUT [...] 60 - 999 ML/MINUTE eGFR >60 LAB eGFR(AA)(INC) 60 - 999 ML/MINUTE eGFR(AA) >60 Result Comment: ACCORDING TO THE NATIONAL KIDNEY DISEASE EDUCATION PROGRAM(NKDE), A NORMAL eGFR IS A VALUE GREATER THAN OR EQUAL TO 60 ML/MIN/1.73 SQ METERS. CHRONIC KIDNEY DISEASE: <60mL/MIN/1.73 SQ METERS KIDNEY FAILURE: <15mL/MIN/1.73 SQ METERS THIS TEST SHOULD ONLY BE USED FOR PATIENTS 18 YEARS OF AGE AND OLDER. Performed By: #### [id number] #### [place] [address] CT BRAIN W/O CONTRAST Observed: 10/30/2018 Status: F Source: [facility] 5:30 PM [place] [address] Patient: ELLI GUERRERO Phone#: : 1960 Age: 58 Gender: F Pt. Type: ER Account: [id number] Location: 052 Ordering: DR. FCO DE LEÓN Exam Date: 10/30/2018/17:16 Family Phys: YANDEL BUSH Charge Code: 517292 Physician: [place] Order #: [id number] DLP Dose#: PROCEDURE: CT BRAIN WITHOUT CONTRAST COMPARISON: [facility], CT, BRAIN W/O CON, 10/19/2018, 23:34. [...] 58 Gender: F Pt. Type: ER Account: [id number] Location: 052 Ordering: DR. FCO DE LEÓN Exam Date: 10/30/2018/17:16 Family Phys: YANDEL BUSH Charge Code: 800118 Physician: [place] Order #: [id number] DLP Dose#: 1. Expected interval evolution of the left temporoparietal epidural hematoma which is decreased in size and demonstrates mixed attenuation blood products. 2. Mild mass effect with [id number] midline shift. Stable effacement of the suprasellar [...] (NO DIFF) Collected: 10/29/2018 Status: F Source: [facility] 5:53 AM [facility] REPOSITORY TYPE CODE TESTS RESULT OUT [...] 8.0 Result Comment: {CB] Performed By: #### [id number] #### [facility],[address] [place] [address] CMP WITH EGFR Collected: 10/29/2018 Status: F Source: [facility] 5:53 [facility] REPOSITORY TYPE CODE TESTS RESULT OUT OF [...] OF AGE AND OLDER. Performed By: #### [id number] #### [facility],[address] [place] [address] LITHIUM Collected: 10/29/2018 Status: F Source: [facility] 5:53 AM [facility] REPOSITORY TYPE CODE TESTS RESULT OUT OF REFERENCE UNITS RANGE LAB LITHIUM(CARA 0.6 - 1.2 mmol/L NC) High LITHIUM 1.4 Performed By: #### [id number] #### [facility],[address] [place] [address] NURSING PROG Observed: 10/28/2018 Status: COMPLETED Source: [place] 1:17 PM [facility] OTHER CAMPUS REPOSITORY HNO ID: [id number] Author: Yulisa HenriquezRn) ARMAND Salgado Service: Nursing Author Type: Registered Nurse Type: Nursing Progress Note Filed: 10/28/2018 1:18 PM Note Text: Nursing Progress Note Patient Name: Elli Guerrero Patient Location: [place] [address]/[place] [address]* Daily Note:Report called to Zabrina Yanes. Pt to be transported at 1530 today. This note was completed by: Yulisa Salgado RN GLUCOSE METER Collected: 10/28/2018 Status: F Source: [facility] 12:21 PM HEALTH SYSTEM REPOSITORY TYPE CODE TESTS RESULT OUT OF REFERENCE UNITS RANGE LAB GLUBL(LOINC 70-99 mg/dL ) High Glucose Meter 170 Result Comment: RN NOTIFIED Performed By: #### GLMET #### [place] [address] CASE MANAGEM Observed: 10/28/2018 Status: COMPLETED Source: [place] 11:24 AM [facility] OTHER WITHAMS REPOSITORY HNO ID: [id number] Author: Nataliia HenriquezRn) ARMAND Whiteside Service: Care Management Author Type: Registered Nurse Type: Care Mgt Progress Note Filed: 10/28/2018 11:27 AM Note Text: CARE MANAGEMENT DISCHARGE NOTE SERVICE DATE: 10/28/2018 SERVICE TIME: 1123 LOS: 8 days Admission Date: 10/20/2018 DISCHARGE ARRANGEMENT (list agency and phone number) care home facility: Was an expedited discharge program used? No Provider: zabrina yanes CAREGIVER ASSESSMENT: Caregiver is ready, willing and able to meet the patient's needs as recommended by the inter-professional team? Yes Patient's transition needs and plan for meeting these needs: [place] Does the patient have an acute stroke diagnosis, or has the patient had a stroke during this admission? No HANDOFF COMMUNICATION: pt to be followed [place] TRANSPORTATION ARRANGEMENTS: Mode of Transportation: Amb[facility]lette Transportation Agency and Phone #: [facility] ( [facility] ) [phone] / [phone]. Date of Trip: 10/28/2018 Type of Service: BLS Non-emergency and Wheelchair Is Patient Medicaid Pending: No Discussion of financial coverage occurred with Patient . Jewelry Sorter Location: [facility] Destination: [facility] Financial Care Management Responsibility: None Estimated Charge: n/a Approving Credit And Collections Analyst: n/a ADDITIONAL CONTACT RESOURCES: none Pt discharged to [facility] today. ambulette set up for 1:30pm and pt and her dtr made aware. SIGNATURE: Nataliia Whiteside RN PATIENT NAME: Elli Guerrero DATE: October 28, 2018 TIME: 11:24 AM PAGER/CONTACT #: [id number] THERAPY NT Observed: 10/28/2018 Status: COMPLETED Source: [facility] 11:15 AM CLINIC OTHER CAMPUS REPOSITORY HNO ID: [id number] Author: Aimee (Pt) Vianey Service: Physical Therapy Author Type: Physical Therapist Type: Therapy (PT/OT/Speech/Resp) Filed: 10/28/2018 11:21 AM Note Text: Physical Therapy Treatment SERVICE DATE: 10/28/2018 SERVICE TIME: 1032 to 1102 ROOM: [place] [address] Recommended Discharge Disposition: Subacute/SNF Justification For Post [...] (generalized);Unsteadiness on feet Interventions Provided: Therapeutic Activity (83324) Therapeutic Activity (40737) Treatment Minutes: 30 2 units Skilled Intervention(s): [...] Environment Patient Lives With: Spouse Assistance Available: time lock expert;24 Hour (spouse/daughter next door) Entry To Home: [...] Assistance Dynamic Standing Balance: Contact Guard Assistance JH-HLM: 7: Walk 25 feet or more Please see discipline specific clinical documentation flowsheet for complete details for this therapy evaluation/treatment. SIGNATURE: Aimee Winters PT PATIENT NAME: Elli Guerrero DATE: October 28, 2018 TIME: 11:15 AM CNDS Observed: 10/28/2018 Status: COMPLETED Source: [place] 9:51 AM CLINIC OTHER CAMPUS REPOSITORY O ID: [id number] Author: Chuck Delgado MD Service: Hospital Medicine [...] Attending Provider: Chuck Delgado MD Primary Service: James Miller Consulting: James Berkowitz Steam Fitter MY CONDITION AT DISCHARGE: Stable REASON I [...] Possible vaginal bleeding, resolved, no current bleeding, Steam Fitter evaluated the patient and there was no [...] Paroxysmal atrial fibrillation Discharge Disposition Discharge Disposition: Nursing Home Facility - Less than 30 Days Follow Up Appointments Follow-Up Appointment To follow up on when it is safe to start oral anticoagulation for paroxysmal A fib When: In 2 weeks Raul Mike [phone] [facility] [address] [facility] [address] PCP Requested Referral Follow-Up Appointment With: PCP When: In 1 week FOLLOW-UP APPOINTMENTS ALREADY SCHEDULED WITH A [facility] PROVIDER: Future Appointments Date Time Provider Department Center 04/10/2019 9:30 AM [place] RO[facility] SHARI ALLERGIES No Known Allergies DISCHARGE MEDICATION: [...] MDRD GFR Collected: 10/28/2018 Status: F Source: [facility] 5:45 AM HEALTH SYSTEM REPOSITORY TYPE CODE TESTS RESULT OUT OF RANGE REFERENCE UNITS LAB GFRFN(LOINC >60mL/min/1.73m ) 2 eGFR >60 Result Comment: If the patient is , multiply the result by 1.210. Performed By: #### GFR #### [place] [address] HEMOGRAM/DIFF Collected: 10/28/2018 Status: F Source: [facility] 5:45 AM HEALTH SYSTEM REPOSITORY TYPE [...] 1.43 LAB MONON(LOIN 0.27-0.70 thou/cmm C) Abs. Medina 0.33 LAB EOSN(LOINC 0.00-0.31 thou/cmm ) Abs. Eosin 0.14 LAB BASON(LOIN 0.01-0.08 thou/cmm C) Abs. Baso 0.02 Performed By: #### [id number] #### [place] [address] MAGNESIUM BLOOD Collected: 10/28/2018 Status: F Source: [facility] 5: AM HEALTH SYSTEM REPOSITORY TYPE CODE TESTS RESULT OUT OF REFERENCE UNITS RANGE LAB MAG(LOINC) 1.6-2.6 mg/dL Magnesium Blood 2.0 Performed By: #### MAG #### [place] [address] PHOSPHORUS BLOOD Collected: 10/28/2018 Status: F Source: [facility] 5: AM HEALTH SYSTEM REPOSITORY TYPE CODE TESTS RESULT OUT OF REFERENCE UNITS RANGE LAB PHOS(LOINC 2.5-4.9 mg/dL ) Phosphorus Blood 4.1 Performed By: #### PHOS #### [place] [address] COMPREHENSIVE PANEL Collected: 10/28/2018 Status: F Source: [facility] 5:[facility] REPOSITORY TYPE CODE TESTS [...] Gap 12 Performed By: #### P14 #### [place] [address] CASE MANAGEM Observed: 10/27/2018 Status: COMPLETED Source: [place] 3:39 PM [facility] OTHER [facility]AMS REPOSITORY HNO ID: [id number] Author: Nataliia (Rn) ARMAND Whiteside Service: Care Management Author Type: Registered [...] RN PATIENT NAME: Elli Guerrero DATE: October 27, 2018 TIME: 3:39 PM PAGER/CONTACT #: [phone] PROGRESS Observed: 10/27/2018 Status: COMPLETED Source: [place] 3:14 PM CLINIC OTHER CAMPUS REPOSITORY HNO ID: [id number] Author: Chuck Delgado MD Service: Hospital Medicine [...] hours. Invalid input(s): PT BMP: Recent Labs 10/27/18252 NA 139 K 3.5 CHLOR 107 CO2 25 BUN 10 CREAT 0.54 GLUC 132* CMP: Recent Labs 10/27/18 0601 10/27/18 025 NA -- 139 K -- 3.5 CHLOR -- 107 CO2 -- 25 BUN -- 10 CREAT -- 0.54 GLUC -- 132* TPROT -- 7.5 CA -- 9.1 MG 2.2 -- TBILI -- 0.6 ALKPHOS -- 107 ALT -- 25 AST -- 34 ANION -- 11 Recent Labs 10/27/18 025 TPROT 7.5 ALB 3.2* ALT 25 AST 34 ALKPHOS 107 TBILI 0.6 MG/PHOS: Recent Labs 10/27/18 0610/27/18 025 MG 2.2 -- P -- 3.6 Renal [...] Possible vaginal bleeding, resolved, no current bleeding, Steam Fitter evaluated the patient and there was no [...] Plan: in NSR, continue BB For SNF, personal care aide following, DC sitter for discharge purposes, communication made to the nurse to keep bed alarm on and also bedside commode approachable, patient also was instructed to ask for help when ever she moves, she verbalized understanding. SIGNATURE: Chuck Delgado MD PATIENT NAME: Elli Guerrero TIME: 12:45 PM PAGER/CONTACT #: THERAPY NT Observed: 10/27/2018 Status: COMPLETED Source: [place] 11:07 AM CLINIC OTHER CAMPUS REPOSITORY HNO ID: [id number] Author: Marily HenriquezOtr/LEthan Gutierrez Service: Occupational Therapy Author Type: Occupational Therapist Type: Therapy (PT/OT/Speech/Resp) Filed: 10/27/2018 11:27 AM Note Text: Occupational Therapy Treatment SERVICE DATE: 10/27/2018 SERVICE TIME: 1030 to 1053 ROOM: [place] [address] Recommended Discharge Disposition: Subacute/SNF Recommended Discharge Disposition [...] Functions and Awareness Interventions Provided: Cognitive Training (96070 or G0515);Self Fdc Management (60641) Self Fdc Management (00970) Treatment Minutes: 13 1 unit Skilled Intervention(s):Educated [...] Only): 1 unit Skilled Intervention(s):. Faciliaited the John Cognitive Assessment (MOCA), score provided below. Patient [...] Environment Patient Lives With: Spouse Assistance Available: time lock expert;24 Hour (spouse/daughter next door) Entry To Home: [...] MAGNESIUM BLOOD Collected: 10/27/2018 Status: F Source: [facility] 6:01 AM HEALTH SYSTEM REPOSITORY TYPE CODE TESTS RESULT OUT OF REFERENCE UNITS RANGE LAB MAG(LOINC) 1.6-2.6 mg/dL Magnesium Blood 2.2 Performed By: #### MAG #### [facility] [address] [place] [address] HEMOGRAM/DIFF Collected: 10/27/2018 Status: F Source: [facility] 2:53 AM HEALTH SYSTEM REPOSITORY TYPE [...] 1.63 LAB MONON(LOIN 0.27-0.70 thou/cmm C) Abs. Medina 0.34 LAB EOSN(LOINC 0.00-0.31 thou/cmm ) Abs. Eosin 0.15 LAB BASON(LOIN 0.01-0.08 thou/cmm C) Abs. Baso 0.03 Performed By: #### CBCD1 #### [facility] [address] [place] [address] PHOSPHORUS BLOOD Collected: 10/27/2018 Status: F Source: [facility] 2:53 [facility] REPOSITORY TYPE CODE TESTS RESULT OUT OF REFERENCE UNITS RANGE LAB PHOS(LOINC 2.5-4.9 mg/dL ) Phosphorus Blood 3.6 Performed By: #### PHOS #### [place] [address] COMPREHENSIVE PANEL Collected: 10/27/2018 Status: F Source: [facility] 2:[address] [place] [address] SYSTEM REPOSITORY TYPE CODE TESTS RESULT OUT [...] Gap 11 Performed By: #### P14 #### [facility] [address] [place], [place] [address] PROGRESS Observed: 10/26/2018 Status: COMPLETED Source: [place] 11:36 PM CLINIC OTHER CAMPUS REPOSITORY HNO ID: [id number] Author: Cheng Rodrigues Service: Hospital Medicine Author [...] W/O CONTRAST Observed: 10/26/2018 Status: F Source: [facility] 8:31 PM HEALTH SYSTEM REPOSITORY Performed at [facility] APPROVED BY: DEBBIE SCHULZ MD EXAMINATION: [...] NURSING PROG Observed: 10/26/2018 Status: COMPLETED Source: [place] 8:05 PM CLINIC OTHER CAMPUS REPOSITORY HNO ID: [id number] Author: Marily (Rn) ARMAND Horton Service: Nursing Author Type: Registered Nurse Type: Nursing Progress Note Filed: 10/27/2018 1:48 AM Note Text: Nursing Progress Note Patient Name: Elli Guerrero Patient Location: [phone]* Notified MD Rodrigues of patients vision changes. [...] NURSING PROG Observed: 10/26/2018 Status: COMPLETED Source: [place] 7:52 PM [facility] OTHER WITHAMS REPOSITORY HNO ID: [id number] Author: Julia HenriquezRn) ARMAND Christianson Service: Nursing Author Type: Registered Nurse Type: Nursing Progress Note Filed: 10/26/2018 7:57 PM Note Text: Post Fall Assessment Elli Guerrero [id number] Witnessed: No How did fall occur: Getting [...] Observation, Apply a Yellow Wrist Band, Apply [place] Risk Symbol to the Door, Obtain an Order for PT/OT and My Safety Plan Updated This note was completed by:Julia Christianson RN THERAPY NT Observed: 10/26/2018 Status: COMPLETED Source: [place] 5:33 PM [facility] OTHER WITHAMS REPOSITORY HNO ID: [id number] Author: Carissa (Pt) Matthew Service: Physical Therapy Author Type: Physical Therapist Type: Therapy (PT/OT/Speech/Resp) Filed: 10/26/2018 5:38 PM Note Text: Physical Therapy Treatment SERVICE DATE: 10/26/2018 SERVICE TIME: 1716 to 1728 ROOM: [id number] Recommended Discharge Disposition: Subacute/SNF Justification For Post [...] (generalized);Unsteadiness on feet Interventions Provided: Therapeutic Activity (00191);Therapeutic Exercise (87799) Therapeutic Exercise (44521) Treatment Minutes: 8 1 unit Skilled Intervention(s): Instruction in therapeutic exercise : assisted HS, AP, LAQ, QS. Verbal and tactile cuing provided during ex. to complete ROM. Facilitation of muscle control, optimal recruitment and alignment during transitional mvt. Cues throughout to stay on task. Therapeutic Activity (70971) Treatment Minutes: 4 0 units Skilled Intervention(s): [...] Environment Patient Lives With: Spouse Assistance Available: time lock expert;24 Hour (spouse/daughter next door) Entry To Home: [...] Moderate Assistance Dynamic Standing Balance: Moderate Assistance -HLM: 3: Sit at edge of bed Please see discipline specific clinical documentation flowsheet for complete details for this therapy evaluation/treatment. SIGNATURE: Carissa Castro PT PATIENT NAME: Elli Guerrero DATE: October 26, 2018 TIME: 5:33 PM PROGRESS Observed: 10/26/2018 Status: COMPLETED Source: [facility] 11:26 AM CLINIC OTHER CAMPUS REPOSITORY HNO ID: [id number] Author: Chuck Delgado MD Service: Hospital Medicine [...] Invalid input(s): PT BMP: Recent Labs 10/26/18 0251 NA 137 K 3.3* CHLOR 106 CO2 23 BUN 10 CREAT 0.45* GLUC 127* CMP: Recent Labs 10/26/18 0251 NA 137 K 3.3* CHLOR 106 CO2 23 BUN 10 CREAT 0.45* GLUC 127* TPROT 7.4 CA 9.4 MG 2.2 TBILI 0.6 ALKPHOS 111 ALT 22 AST 21 ANION 11 Recent Labs 10/26/18 0251 TPROT 7.4 ALB 3.3* ALT 22 AST 21 ALKPHOS 111 TBILI 0.6 MG/PHOS: Recent Labs 10/26/18 0251 MG 2.2 P 3.2 Renal Panel: Recent [...] Possible vaginal bleeding, resolved, no current bleeding, Steam Fitter evaluated the patient and there was no [...] Plan: in NSR, continue BB For SNF, personal care aide following SIGNATURE: Chuck Delgado MD PATIENT NAME: Elli Guerrero TIME: 12:45 PM PAGER/CONTACT #: [email or web address] Collected: 10/26/2018 Status: F [facility] 2:51 [facility] REPOSITORY TYPE CODE [...] 1.67 LAB MONON(LOIN 0.27-0.70 thou/cmm C) Abs. Medina 0.33 LAB EOSN(LOINC 0.00-0.31 thou/cmm ) Abs. Eosin 0.15 LAB BASON(LOIN 0.01-0.08 thou/cmm C) Abs. Baso 0.01 Performed By: #### CBCD1 #### [facility] [address] [place] [address] MAGNESIUM BLOOD Collected: 10/26/2018 Status: F Source: [facility] 2:51 AM HEALTH SYSTEM REPOSITORY TYPE CODE TESTS RESULT OUT OF REFERENCE UNITS RANGE LAB MAG(LOINC) 1.6-2.6 mg/dL Magnesium Blood 2.2 Performed By: #### MAG #### [facility] [address] [place] [address] PHOSPHORUS BLOOD Collected: 10/26/2018 Status: F Source: [facility] 2:51 AM HE[facility] SYSTEM REPOSITORY TYPE CODE TESTS RESULT OUT OF REFERENCE UNITS RANGE LAB PHOS(LOINC 2.5-4.9 mg/dL ) Phosphorus Blood 3.2 Performed By: #### PHOS #### [facility] [address] [place] [address] COMPREHENSIVE PANEL Collected: 10/26/2018 Status: F Source: [facility] 2:51 AM HE[facility] SYSTEM REPOSITORY TYPE [...] Gap 11 Performed By: #### P14 #### [facility] [address] [place] [id number] PROGRESS Observed: 10/25/2018 Status: COMPLETED Source: [facility] 11:36 AM CLINIC OTHER CAMPUS REPOSITORY HNO ID: [id number] Author: Chuck Delgado MD Service: Hospital Medicine [...] # Possible vaginal bleeding, no current bleeding, Steam Fitter evaluated the patient and there was no [...] CASE MANAGEM Observed: 10/25/2018 Status: COMPLETED Source: [facility] 11:27 AM CLINIC OTHER CAMPUS REPOSITORY HNO ID: [id number] Author: Patsy Warren (Sw) Service: Care Management Author Type: Supervisor Modern Languages Type: Care Mgt Progress Note Filed: 10/25/2018 [...] 25, 2018 TIME: 11:27 AM PAGER/CONTACT #: [phone] HEMOGRAM/DIFF Collected: 10/25/2018 Status: F Source: [facility] 3:40 AM [facility] SYSTEM REPOSITORY TYPE [...] 1.34 LAB MONON(LOIN 0.27-0.70 thou/cmm C) Abs. Medina 0.43 LAB EOSN(LOINC 0.00-0.31 thou/cmm ) Abs. Eosin 0.14 LAB BASON(LOIN 0.01-0.08 thou/cmm C) Abs. Baso 0.01 Performed By: #### CBCD1 #### [place] [address] MAGNESIUM BLOOD Collected: 10/25/2018 Status: F Source: [facility] 3:40 AM [facility] SYSTEM REPOSITORY TYPE CODE TESTS RESULT OUT OF REFERENCE UNITS RANGE LAB MAG(LOINC) 1.6-2.6 mg/dL Magnesium Blood 2.1 Performed By: #### MAG #### [place] [address] PHOSPHORUS BLOOD Collected: 10/25/2018 Status: F Source: [facility] 3:40 AM [facility] SYSTEM REPOSITORY TYPE CODE TESTS RESULT OUT OF REFERENCE UNITS RANGE LAB PHOS(LOINC 2.5-4.9 mg/dL ) Phosphorus Blood 4.0 Performed By: #### PHOS #### [place] [address] COMPREHENSIVE PANEL Collected: 10/25/2018 Status: F Source: [facility] 3:40 AM HEALTH SYSTEM REPOSITORY TYPE [...] Gap 11 Performed By: #### P14 #### [facility] [address] [place] [address] NURSING PROG Observed: 10/24/2018 Status: COMPLETED Source: [facility] 4:20 PM [facility] REPOSITORY HNO ID: [id number] Author: Bijal (Rn) ARMAND Fernandez Service: Nursing Author Type: Registered Nurse Type: Nursing Progress Note Filed: 10/24/2018 9:19 PM Note Text: Dr Schmidt at nurses station. informed pt barely arousable. stated he was not going to do another CT as they have all shown improvement. THERAPY NT Observed: 10/24/2018 Status: COMPLETED Source: [facility] 4:03 PM [facility] REPOSITORY HNO ID: [id number] Author: Shawn Dorman) Anton[place] Service: Physical Therapy Author Type: House Worker General Type: Therapy (PT/OT/Speech/Resp) Filed: 10/24/2018 4:03 PM Note Text: Attestation signed by Mindi HenriquezPt) Anish at 10/24/2018 4:18 PM I reviewed and agree with the documentation corresponding to this therapy visit. SIGNATURE: Mindi Oconnell PT DATE: October 24, 2018 TIME: 4:18 PM PHYSICAL THERAPY MISSED VISIT SERVICE DATE: 10/24/2018 SERVICE TIME: 1603 to 1603 ROOM: [place] [address] Attempted Treatment. Patient not seen due to Sleeping. Will continue to follow as able. SIGNATURE: Shawn Fung PTA PATIENT NAME: Elli Guerrero DATE: October 24, 2018 TIME: 4:03 PM CASE MANAGEM Observed: 10/24/2018 Status: COMPLETED Source: [facility] 3:58 PM [facility] REPOSITORY HNO ID: [id number] Author: Nataliia HenriquezRn) ARMAND Whiteside Service: Care Management Author Type: Registered Nurse Type: Care Mgt Progress Note Filed: 10/24/2018 4:00 PM Note Text: CARE MANAGEMENT PROGRESS NOTE SERVICE DATE: 10/24/2018 SERVICE TIME: 1557 LOS: 4 days FREEDOM OF CHOICE GIVEN: Provider List: Nursing Home Facility Pre[facility]: [facility] Referrals sent. [facility] Y[facility] able to accept and will have a private room. Will need precert on Saturday. SIGNATURE: Nataliia Whiteside RN PATIENT NAME: Elli Guerrero DATE: October 24, 2018 TIME: 3:58 PM PAGER/CONTACT #: [phone] CONSULT Observed: 10/24/2018 Status: COMPLETED Source: [facility] 2:43 PM [facility] OTHER WITHAMS REPOSITORY HNO ID: [id number] Author: Daina Das DO Service: Gynecology Author Type: Resident Type: Consults Filed: 10/24/2018 3:39 PM Note Text: Attestation signed by Jeff Adair at 10/25/2018 9:24 AM I agree with resident's assessment and plan CAREER DEVELOPMENT ASSOCIATE CONSULT PROGRESS NOTE SERVICE DATE: 10/24/2018 SERVICE [...] performed for precancer. Hysterectomy was performed in [place] by Dr. Eckert. She follows regularly with [...] bleeding episodes. Recommend outpatient follow up with Application Support Lead. DAISY Adair SIGNATURE: Daina Das DO PATIENT NAME: Elli Guerrero DATE: October 24, 2018 TIME: 2:44 PM PAGER: [phone] PROGRESS Observed: 10/24/2018 Status: COMPLETED Source: [facility] 1:53 PM CLINIC OTHER CAMPUS REPOSITORY HNO ID: [id number] Author: Evita Potts Service: Neurosurgery Author Type: Nurse Practitioner Type: Progress Notes Filed: 10/24/2018 2:03 PM Note Text: Neurosurgery Inpatient Progress Note Attending: Dr. Chuck Delgado MD Location: [id number] Hospital Day: 5 ASSESSMENT/ PLAN: Subdural Hemorrhage [...] 2.2 2.2 2.2 2.1 HEPATIC: Recent Labs 10/24/1843110/23/1835710/21/1842910/20/182033 ALKPHOS 128* 102 114 118* ALT 25 [...] Musculoskeletal: Muscle strength: UE BICEPS TRICEPS DELTS Licensed Nurse Practitioner R 5/5 5/5 5/5 5/5 L 5/5 [...] Speech: clear, fluent Hemineglect: none SIGNATURE: Evita Chuhi, CEMENT BASED MATERIALS PUMP TENDER.LIGHTING TECHNICIAN PATIENT NAME: Elli Guerrero DATE: 10/24/2018 TIME: 1:53 PM PAGER: [phone] PROGRESS Observed: 10/24/2018 Status: COMPLETED Source: [facility] 1:47 PM CLINIC OTHER CAMPUS REPOSITORY HNO ID: [id number] Author: Chuck Delgado MD Service: Hospital Medicine [...] reviewed for today's visit: CBC: Recent Labs 10/24/18431 WBC 8.35 RBC 4.86 HB 14.2 HCT 43.2 PLT 123* MCV 88.9 MCH 29.2 MPV 9.8 RDW 13.5 Coags: No results for input(s): INR, APTT in the last 24 hours. Invalid input(s): PT BMP: Recent Labs 10/24/18431 NA 137 K 3.5 CHLOR 102 CO2 27 BUN 11 CREAT 0.46* GLUC 136* CMP: Recent Labs 10/24/18431 NA 137 K 3.5 CHLOR 102 CO2 27 BUN 11 CREAT 0.46* GLUC 136* TPROT 8.6* CA 10.4* MG 2.4 TBILI 1.0 ALKPHOS 128* ALT 25 AST 27 ANION 12 Recent Labs 10/24/18 0432 TPROT 8.6* ALB 4.0 ALT 25 AST 27 ALKPHOS 128* TBILI 1.0 MG/PHOS: Recent Labs 10/24/18 0432 MG 2.4 P 3.6 Renal Panel: Recent Labs 10/24/18 0432 CREAT 0.46* BUN 11 GLUC 136* CA [...] bleeding??, has history of hysterectomy, will consult Steam Fitter if negative, might be bladder related # [...] THERAPY NT Observed: 10/24/2018 Status: COMPLETED Source: [facility] 10:12 AM CLINIC OTHER CAMPUS REPOSITORY HNO ID: [id number] Author: Patsy (Inside Sales Trainer) KIRK Walker/GUEST SERVICE TEAM LEADER Service: Speech/Swallow Author Type: Speech Language Pathologist Type: Therapy (PT/OT/Speech/Resp) Filed: 10/24/2018 10:34 AM Note Text: Speech Therapy Treatment SERVICE DATE: 10/24/2018 SERVICE TIME: 0935 to 1007 ROOM: [id number] Nursing Recommendations: Reinforce use of swallowing strategies;Reinforce [...] following cerebral infarction Interventions Provided: Dysphagia Therapy (97562);Speech Therapy (18516) $ Dysphagia Therapy (61027) Billed Units: 1 unit Skilled Interventions: Reassessed swallow ability with various liquid and food textures to determine if safe for current food/drink textures versus at risk for aspiration.Educated and advised patient / caregiver on texture and liquid consistency recommendations., Instructed patient / caregiver on recommended compensatory strategies to maximize safety with oral intake while maintaining nutrition, hydration and medication stability. $ Speech Therapy (87009) Billed Units: 1 unit Skilled Interventions: Educated [...] for this therapy evaluation/treatment. SIGNATURE: Patsy Walker CCC-GUEST SERVICE TEAM LEADER PATIENT NAME: Elli Guerrero DATE: October 24, 2018 TIME: 10:13 AM URINALYSIS, REFLEX Collected: 10/24/2018 Status: F Source: [facility] 7:55 AM HEALTH SYSTEM REPOSITORY TYPE [...] to confirm). LAB SPG(LOINC) 1.005-1.030 Specific 1.016 [place], Ur LAB PHUR(LOINC) 5.0-8.0 pH,Urine 6.0 LAB [...] laboratory criteria. Performed By: #### URIN #### [facility] [address] [place] [address] HEMOGRAM/DIFF Collected: 10/24/2018 Status: F Source: [facility] 4:32 HEALTH SYSTEM REPOSITORY TYPE CODE TESTS RESULT [...] 1.93 LAB MONON(LOIN 0.27-0.70 thou/cmm C) Abs. Med[place] 0.42 LAB EOSN(LOINC 0.00-0.31 thou/cmm ) Abs. Eosin 0.16 LAB BASON(LOIN 0.01-0.08 thou/cmm C) Abs. Baso 0.02 Performed By: #### CBCD1 #### [place] [address] MAGNESIUM BLOOD Collected: 10/24/2018 Status: F Source: [place] [address]:[address] [place] [address] SYSTEM REPOSITORY TYPE CODE TESTS RESULT OUT OF REFERENCE UNITS RANGE LAB MAG(LOINC) 1.6-2.6 mg/dL Magnesium Blood 2.4 Performed By: #### MAG #### [place] [address] PHOSPHORUS BLOOD Collected: 10/24/2018 Status: F Source: [address] HE[facility] SYSTEM REPOSITORY TYPE CODE TESTS RESULT OUT OF REFERENCE UNITS RANGE LAB PHOS(LOINC 2.5-4.9 mg/dL ) Phosphorus Blood 3.6 Performed By: #### PHOS #### [place] [address] COMPREHENSIVE PANEL Collected: 10/24/2018 Status: F Source: [address] SYSTEM REPOSITORY TYPE CODE TESTS RESULT [...] Gap 12 Performed By: #### P14 #### [place] [address] THERAPY NT Observed: 10/23/2018 Status: COMPLETED Source: [facility] 1:55 PM CLINIC OTHER CAMPUS REPOSITORY HNO ID: [id number] Author: Patsy (Inside Sales Trainer) KIRK Walker/WENDY Service: Speech/Swallow Author Type: Speech Language Pathologist Type: Therapy (PT/OT/Speech/Resp) Filed: 10/23/2018 2:14 PM Note Text: Speech Therapy Speech Evaluation, Treatment SERVICE DATE: 10/23/2018 SERVICE TIME: 1300 to 1340 ROOM: [place] [address] Nursing Recommendations: Reinforce use of swallowing strategies;Reinforce [...] cerebral infarction Interventions Provided: Speech Language Eval (82626);Dysphagia Therapy (69225) $ Speech Language Eval (15500) Billed Units: 1 unit $ Dysphagia Therapy (90739) Billed Units: 1 unit Skilled Interventions: Reassessed [...] for this therapy evaluation/treatment. SIGNATURE: Patsy Walker CCC-GUEST SERVICE TEAM LEADER PATIENT NAME: Elli Guerrero DATE: October 23, 2018 TIME: 1:55 PM PROGRESS Observed: 10/23/2018 Status: COMPLETED Source: [facility] 12:45 PM CLINIC OTHER CAMPUS REPOSITORY HNO ID: [id number] Author: Chuck Delgado MD Service: Hospital Medicine [...] 22 AST 32 ANION 11 Recent Labs 10/23/18357 TPROT 7.7 ALB 3.5 ALT 22 AST 32 ALKPHOS 102 TBILI 0.8 MG/PHOS: Recent Labs 10/23/18357 MG 2.2 P 3.1 Renal Panel: Recent Labs 11/29/18 0358 CREAT 0.54 BUN 9 GLUC 123* [...] W/O CONTRAST Observed: 10/23/2018 Status: F Source: [facility] 8:27 AM HEALTH SYSTEM REPOSITORY Performed at [facility] APPROVED BY: Beth Rhodes MD EXAMINATION: [...] I malformation. Observed: 10/23/2018 Status: F Source: [facility] URINE 7:55 AM HEALTH SYSTEM REPOSITORY Test performed at [facility] ORGANISM: Enterobacter cloacae (ID: 1) >100,000 CFU/ml ORGANISM: Klebsiella pneumoniae (ID: 3) 10,000-50,000 CFU/ml ORGANISM: Enterococcus faecalis (ID: 2) 10,000-50,000 CFU/ml Performed By: #### C_URI #### [place] [address] NURSING PROG Observed: 10/23/2018 Status: COMPLETED Source: [facility] 5:21 AM CLINIC OTHER CAMPUS REPOSITORY HNO ID: [id number] Author: Eleuterio (Rn) ARMAND Jensen Service: Nursing Author Type: Registered Nurse Type: Nursing Progress Note Filed: 10/23/2018 5:24 AM Note Text: Nursing Progress Note Patient Name: Elli Guerrero Patient Location: [id number]/[facility] [id number]* Daily Note:[facility] night time admitting physicians responded to page concerning vaginal bleeding. At this time instructed to notify daytime nursing staff and day time physician for intervention and to monitor for any changes in patient condition. This note was completed by: Eleuterio Jensen RN NURSING PROG Observed: 10/23/2018 Status: COMPLETED Source: [facility] 5:08 AM CLINIC OTHER CAMPUS REPOSITORY O ID: [id number] Author: Eleuterio (Rn) ARMAND Jensen Service: Nursing Author Type: Registered Nurse Type: Nursing Progress Note Filed: 10/23/2018 5:13 AM Note Text: Nursing Progress Note Patient Name: Elli Guerrero Patient Location: [place] [address] [address]* Daily Note:During continence check noticed bloody vaginal discharge on incontinence pad. After cleaning patient the external female genitalia appears to be intact with no wounds present. Small amount of blood is continuing to leak out of internal parts of vagina. Patient states she has not had a period in 10 years. [facility] resident Kevin was notified. Instructed to notify [facility] physicians for follow up. Vital signs are consistent with previous readings. Hgb and hematocrit are 12 AND 38. Will continue to monitor patient closely. This note was completed by: Eleuterio Jensen RN HEMOGRAM/DIFF Collected: 10/23/2018 Status: F Source: [facility] 3:58 AM HEALTH SYSTEM REPOSITORY TYPE [...] 1.72 LAB MONON(LOIN 0.27-0.70 thou/cmm C) Abs. [place] 0.42 LAB EOSN(LOINC 0.00-0.31 thou/cmm ) Abs. Eosin 0.13 LAB BASON(LOIN 0.01-0.08 thou/cmm C) Abs. Baso 0.02 Performed By: #### CBCD1 #### [place] [address] MAGNESIUM BLOOD Collected: 10/23/2018 Status: F Source: [facility] 3:58 AM HEALTH SYSTEM REPOSITORY TYPE CODE TESTS RESULT OUT OF REFERENCE UNITS RANGE LAB MAG(LOINC) 1.6-2.6 mg/dL Magnesium Blood 2.2 Performed By: #### MAG #### [place] [address] PHOSPHORUS BLOOD Collected: 10/23/2018 Status: F Source: [facility] 3:58 AM HEALTH SYSTEM REPOSITORY TYPE CODE TESTS RESULT OUT OF REFERENCE UNITS RANGE LAB PHOS(LOINC 2.5-4.9 mg/dL ) Phosphorus Blood 3.1 Performed By: #### PHOS #### [place] [address] COMPREHENSIVE PANEL Collected: 10/23/2018 Status: F Source: [facility] 3:58 AM HEALTH SYSTEM REPOSITORY TYPE [...] Gap 11 Performed By: #### P14 #### [place] [address] NURSING PROG Observed: 10/22/2018 Status: COMPLETED Source: [facility] 9:04 PM CLINIC OTHER CAMPUS REPOSITORY HNO ID: [id number] Author: Jazzy HenriquezRn) ARMAND Garcia Service: Nursing Author Type: Registered Nurse [...] PHOSPHORUS BLOOD Collected: 10/22/2018 Status: F Source: [facility] 3:04 PM HEALTH SYSTEM REPOSITORY TYPE CODE TESTS RESULT OUT OF REFERENCE UNITS RANGE LAB PHOS(LOINC 2.5-4.9 mg/dL ) Phosphorus Blood 3.1 Performed By: #### PHOS #### [facility] [address] [place], [place] [address] THERAPY NT Observed: 10/22/2018 Status: COMPLETED Source: [facility] 2:38 PM CLINIC OTHER CAMPUS REPOSITORY HNO ID: [id number] Author: Terrie (Otartem/Lanre Mancia Service: Occupational Therapy Author Type: Occupational Therapist Type: Therapy (PT/OT/Speech/Resp) Filed: 10/22/2018 2:44 PM Note Text: Occupational Therapy Evaluation SERVICE DATE: 10/22/2018 SERVICE TIME: 1400 to 1415 ROOM: [place] [address] Recommended Discharge Disposition: Subacute/SNF Recommended Discharge Disposition [...] and Awareness Interventions Provided: Evaluation $ Evaluation-Moderate (46149) Billed Units: 1 unit Initial patient education to purpose of OT, rehab recommendation and safety with mobility in hospital. Education for increased participation/attempt to assist with ADL also provided. Total Treatment Time (minutes): 15 FUNCTIONAL G CODE: OT 6 Clicks Score: 12 (10/22/18 141) Self Care Current Status (G8987): CL (10/22/18 141) Self Care Goal Status (G8988): CK (10/22/181414) Based on clinical assessment and the score [...] fall with presents as a transfer from [facility] where she presented with recurring headaches, [...] Date - Anemia - Bipolar affect, depressed ([facility]) - Diabetes mellitus - Dyslipidemia - Elevated liver enzymes - Esophageal reflux - Fatty liver - GERD (gastroesophageal reflux disease) - Hypertension - Leukocytosis, unspecified - Obesity - Obstructive sleep apnea (adult) (pediatric) - PAF (paroxysmal atrial fibrillation) ([facility]) - Personal history of colonic polyps - Smoking - Stroke ([facility]) - Urge incontinence 02/01/2017 Reason for Occupational [...] Environment Patient Lives With: Spouse Assistance Available: time lock expert;24 Hour (spouse/daughter next door) Entry To Home: [...] THERAPY NT Observed: 10/22/2018 Status: COMPLETED Source: [facility] 2:27 PM CLINIC OTHER CAMPUS REPOSITORY O ID: [id number] Author: Floresita Castellon Service: Physical Therapy Author Type: Physical Therapist Type: Therapy (PT/OT/Speech/Resp) Filed: 10/22/2018 2:32 PM Note Text: Physical Therapy Evaluation SERVICE DATE: 10/22/2018 SERVICE TIME: 1350 to 1405 ROOM: [place] [address] Recommended Discharge Disposition: Subacute/SNF Justification For Post [...] on feet Interventions Provided: Evaluation $ Evaluation-Moderate (46144) Billed Units: 1 unit Total Treatment Time [...] fall with presents as a transfer from [facility] where she presented with recurring headaches, [...] Received supine in bed upon arrival. Neurosurgery IMAGING TECH present. Patient very drowsy but agreeable to PT evaluation. Home Environment Patient Lives With: Spouse Assistance Available: time lock expert;24 Hour (spouse/daughter next door) Entry To Home: [...] PM PROGRESS Observed: 10/22/2018 Status: COMPLETED Source: [facility] 12:50 PM CLINIC OTHER CAMPUS REPOSITORY HNO ID: [id number] Author: Evita Potts Service: Neurosurgery Author Type: Nurse Practitioner Type: Progress Notes Filed: 10/22/2018 4:08 PM Note Text: Neurosurgery Inpatient Progress Note Attending: Dr. Raul Mike Location: [id number]/[facility]* Hospital Day: 3 ASSESSMENT/ PLAN: Subdural hemorrhage [...] 20 TBILI 0.8 0.8 URINALYSIS: Recent Labs 10/20/18 2155 SPGR 1.027 UGLUC NEGATIVE UBILI NEGATIVE UKET [...] Musculoskeletal: Muscle strength: UE BICEPS TRICEPS DELTS Licensed Nurse Practitioner R 4/5 4/5 4/5 4/5 L 4/5 [...] Speech: clear, fluent Hemineglect: none SIGNATURE: Evita Potts APRN.CNP PATIENT NAME: Elli Guerrero DATE: 10/22/2018 TIME: 3:37 PM PAGER: [phone] THERAPY NT Observed: 10/22/2018 Status: COMPLETED Source: [facility] 10:30 AM [facility] REPOSITORY HNO ID: [id number] Author: Terrie HenriquezOtr/L) Gavino Service: Occupational Therapy Author Type: Occupational Therapist Type: Therapy (PT/OT/Speech/Resp) Filed: 10/22/2018 10:31 AM Note Text: OCCUPATIONAL THERAPY MISSED VISIT SERVICE DATE: 10/22/2018 SERVICE TIME: 916 to 917 ROOM: [place] [address] Attempted Evaluation. Patient not seen due to Illness/emesis following ST. Patient with very limited participation/responsiveness to Speech, with RN reporting patient intermittently speaks out clearly, spontaneously when family calls, or to yell something she wants to communicate without difficulty. Will follow up as patient status/participation allow. SIGNATURE: ELOINA Aguirre/Cecilio PATIENT NAME: Elli Guerrero DATE: October 22, 2018 TIME: 10:30 AM THERAPY NT Observed: 10/22/2018 Status: COMPLETED Source: [facility] 9:24 AM [facility] REPOSITORY HNO ID: [id number] Author: Yasmin (Inside Sales Trainer) KIRK Guzman/GUEST SERVICE TEAM LEADER Service: Speech/Swallow Author Type: Speech Language Pathologist Type: Therapy (PT/OT/Speech/Resp) Filed: 10/22/2018 9:34 AM Note Text: Speech Therapy Clinical Swallow Evaluation SERVICE DATE: 10/22/2018 SERVICE TIME: 08 to 15 ROOM: [place] [address] Nursing Recommendations: See swallow guide posted in [...] oropharyngeal phase Interventions Provided: Clinical Swallow Evaluation (74728) $ Clinical Swallow Evaluation (56008) Billed Units: 1 unit Total Treatment Time [...] (HCC) - Urge incontinence 02/01/2017 Reason for Speech [...] for this therapy evaluation/treatment. SIGNATURE: Yasmin Guzman CCC-GUEST SERVICE TEAM LEADER PATIENT NAME: Elli Guerrero DATE: October 22, 2018 TIME: 9:24 AM PROGRESS Observed: 10/22/2018 Status: COMPLETED Source: [facility] 7:50 AM CLINIC OTHER CAMPUS REPOSITORY O ID: [id number] Author: Raul Mike Service: Neurology ICU Author [...] (!) 53 (!) 53 (!) 51 Resp: 17 17 18 17 Temp: 36.4 ?C (97.5 ?F) TempSrc: Temporal [...] BMP, Mg, Phos Recent Labs 10/22/18 0420 10/21/18 0430 10/20/184 WBC 7.48 8.10 7.70 HB 12.4 12.2 [...] Amylase, AND Lipase Recent Labs 10/21/18 0430 10/20/18 2034 TPROT 8.1 8.6* ALB 4.0 3.9 ALT [...] fall with presents as a transfer from [facility] where she presented with recurring headaches, [...] retention and incontinence ?Patient with urinary dysfunction ?Perez DC ?Monitor UOP strictly 3) Diet ?Bedside swallow [...] swings or manic behaviour ?On lithium ? Coggon levels 0.3 - will recheck in am ?Monitor for behaviour changes 2) Depression ?Patient endorsing recent feelings of increased depression with SI with no plan ?Denies these ideation at time of admission ?Currently on zoloft Medication and Non-Pharmacologic VTE Prophylaxis/Anticoagulants 10/20/181929 vte pharmacologic prophylaxis contraindicated (la,oh) 10/20/181929 pneumatic compression stockings (la,oh) VTE Prophylaxis: VTE prophylaxis appropriate PATIENT CHECKLIST [...] 2018 TIME: 7:50 AM PAG[phone] Raul Mike MD Agree with above. Likely postconcussive syndrome. C/w Pamelor for RODRIGUEZ. Repeat CTH tomorrow and if SDH stable would start DVT chemoppx. Ok for floor today. PERSONAL INVOLVEMENT IN CARE: ? ?Patient/Family Updated: Patient and/or family were updated regarding the goals of care,?medical plan for the day, senior staff consultant recommendations, medical disposition and current medical [...] 1582 HEMOGRAM/DIFF Collected: 10/22/2018 Status: F Source: [facility] 4:20 AM HEALTH SYSTEM REPOSITORY TYPE [...] 2.16 LAB MONON(LOIN 0.27-0.70 thou/cmm C) Abs. Medina 0.42 LAB EOSN(LOINC 0.00-0.31 thou/cmm ) Abs. Eosin 0.14 LAB BASON(LOIN 0.01-0.08 thou/cmm C) Abs. Baso 0.02 Performed By: #### CBCD1 #### [address] [address] BASIC PANEL Collected: 10/22/2018 Status: F Source: [facility] 4:20 AM HEALTH SYSTEM REPOSITORY TYPE [...] Gap 11 Performed By: #### P8 #### [address], [place] [address] MAGNESIUM BLOOD Collected: 10/22/2018 Status: F Source: [facility] 4:20 AM HEALTH SYSTEM REPOSITORY TYPE CODE TESTS RESULT OUT OF REFERENCE UNITS RANGE LAB MAG(LOINC) 1.6-2.6 mg/dL Magnesium Blood 2.2 Performed By: #### MAG #### [facility] [address] [place], [place] [address] PROGRESS Observed: 10/21/2018 Status: COMPLETED Source: [facility] 7:11 PM [facility] REPOSITORY HNO ID: [id number] Author: Melissa Schmidt Service: Neurosurgery Author Type: [...] or concerns. Melissa Schmidt MD PhD Neurological [facility] October 21, 2018 7:15 PM NUTRITION Observed: 10/21/2018 Status: COMPLETED Source: [facility] 5:38 PM [facility] REPOSITORY HNO ID: [id number] Author: Carolann Ortiz RD Service: Nutrition Therapy [...] fall [facility] presented with recurring headaches, [...] THERAPY NT Observed: 10/21/2018 Status: COMPLETED Source: [facility] 3:20 PM CLINIC OTHER CAMPUS REPOSITORY HNO ID: [id number] Author: Patsy (Inside Sales Trainer) KIRK Walker/WENDY Service: Speech/Swallow Author Type: Speech Language Pathologist Type: Therapy (PT/OT/Speech/Resp) Filed: 10/21/2018 3:20 PM Note Text: SPEECH THERAPY MISSED VISIT SERVICE DATE: 10/21/2018 SERVICE TIME: 1520 to 1520 ROOM: [place] [address] Attempted Clinical Swallow Evaluation. Patient not seen due to bathing. SIGNATURE: Patsy Walker CCC-WENDY PATIENT NAME: Elli Guerrero DATE: October 21, 2018 TIME: 3:20 PM CASE MGT INIT Observed: 10/21/2018 Status: COMPLETED Source: [facility] 2:06 PM CLINIC OTHER CAMPUS REPOSITORY HNO ID: [id number] Author: Margie HenriquezRn) ARMAND Rodriges Service: Care Management Author Type: Registered Nurse Type: Care Mgt Initial Assessment Filed: 10/21/2018 2:30 PM Note Text: CARE MANAGEMENT: ASSESSMENT AND DISCHARGE PLAN SERVICE DATE: 10/21/2018 SERVICE TIME: 2:06 PM PRIMARY CARE PHYSICIAN: Yandel Bush MD ADMISSION STATUS: Inpatient Needs Prior to Discharge: Home Care Order;OT/PT Evaluation;To Be Determined;Discharge Prescriptions 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 No SOCIAL: Living Arrangement: Home Lives With: Spouse Financial Resources: Retired Primary Contact: Extended Emergency Contact Information Primary Emergency Contact: Leigha Garcia Relation: Daughter Secondary Emergency Contact: RosieLauriKvng Relation: Son Supportive: Yes Other Important Patient Contacts: Family: Name: Abner Rubio Cell Caregiver Assessment: Caregiver is ready, [...] 0 I feel financially burdened by my [id number] expenses for my prescription medication: Disagree completely [...] Joanne Provider List: Home Care Preference: [facility] POTENTIAL TRANSITION PLANS Home Home Fdc OT/PT Rehab Facility To Be Determined Chart reviewed, Patient recently discharged from the hospital a couple of days ago with [facility] for pt/ot with [facility]- referral placed to resume services if discharged home. MRI pending. Await pt/ot evals for any changes in recommendations. D/c plan pending test results and treatment plan. Will continue to follow. SIGNATURE: Margie Rodriges RN PATIENT NAME: Elli Guerrero DATE: October 21, 2018 TIME: 2:06 PM PAGER/CONTACT #: [phone] THERAPY NT Observed: 10/21/2018 Status: COMPLETED Source: [facility] 1:22 PM CLINIC OTHER CAMPUS REPOSITORY HNO ID: [id number] Author: Aimee (Pt) Vianey Service: Physical Therapy Author Type: Physical Therapist Type: Therapy (PT/OT/Speech/Resp) Filed: 10/21/2018 1:22 PM Note Text: PHYSICAL THERAPY MISSED VISIT SERVICE DATE: 10/21/2018 SERVICE TIME: 1322 to 1322 ROOM: [place] [address] Attempted Evaluation. Patient not seen due to Other: See Comment. Jasiel Real RN pt on bedrest 24hrs--please check back tomorrow SIGNATURE: Aimee Winters PT PATIENT NAME: Elli Guerrero DATE: October 21, 2018 TIME: 1:22 PM MRI CERVICAL SPINE Observed: 10/21/2018 Status: F Source: [facility] W/WO CONTRAST 12:22 PM HEALTH SYSTEM REPOSITORY Performed at [facility] APPROVED BY: Maikel Prather MD EXAMINATION: [...] BRAIN W/WO Observed: 10/21/2018 Status: F Source: [facility] CONTRAST 12:18 PM HEALTH SYSTEM REPOSITORY Performed at [facility] APPROVED BY: Maikel Prather MD EXAMINATION: [...] BRAIN W/WO Observed: 10/21/2018 Status: F Source: [facility] CONTR[facility] 12:11 PM HEALTH SYSTEM REPOSITORY Performed at [facility] APPROVED BY: Maikel Prather MD EXAMINATION: [...] NECK W/WO Observed: 10/21/2018 Status: F Source: [facility] CONTRAST 12:11 PM HEALTH SYSTEM REPOSITORY Performed at [facility] APPROVED BY: Maikel Prather MD EXAMINATION: [...] ALLIED HEALTH Observed: 10/21/2018 Status: COMPLETED Source: [facility] 11:46 AM [facility] REPOSITORY HNO ID: [id number] Author: Chaplain Ceron (Chaplain) Service: Spiritual Care Author Type: Mailing Machine Operator Type: Allied Health Filed: 10/21/2018 11:46 AM Note Text: SPIRITUALCARE Spiritual Care Visit- Brief Note Name: Elli Guerrero Date: October 21, 2018 Notes: Mailing Machine Operator attempted to visit with patient and patient was asleep. Mailing Machine Operator Signature: Chaplain Osmany To contact the Spiritual Care Department: Please call [phone] or Page the On-Call Mailing Machine Operator at pager [phone] Thank you for the opportunity to be of service. This is an electronically created document. IF PRINTED, PLEASE DO NOT REMOVE FROM THE CHART OR MODIFY PRINTED COPY. PLAN OF CARE Observed: 10/21/2018 Status: COMPLETED Source: [facility] 11:14 AM [facility] REPOSITORY HNO ID: [id number] Author: Evita De León (Pharmacist) Service: Pharmacy Author Type: Pharmacist Type: Plan of Care Filed: 10/21/2018 11:33 AM Note Text: MEDICATION HISTORY AND MEDICATION RECONCILIATION Patient Name:Phil Guerrero : 1960 Source of history:Pharmacy records: [facility] ([place] [phone]); [facility] ([place]: [phone]); [facility] ([place], [place] [phone]) Medication Nonadherence Identified: No barriers noted The above information represents the best possible medication history: Yes Reconciliation completed? Yes All [employer] medications addressed by LIP Additional comments: Please note the following adjustments: Medications added: - None Medications updated: - Coggon now updated to represent 450 mg in AM and 900 mg HS as separate orders Medications removed: - Apremilast, last filled 07/30/18 for 30d supply. Per previous documentation, medication cancelled - Keppra, only filled for one tablet on 10/07/18 - Nitroglycerin, not filled for greater than 1 year, prescription . Allergies: ALLERGIES No Known Allergies Preferred Pharmacy: [facility] Current [employer] Medications: Prior to Admission medications as of [...] THERAPY NT Observed: 10/21/2018 Status: COMPLETED Source: [facility] 9:07 AM CLINIC OTHER CAMPUS REPOSITORY HNO ID: [id number] Author: Terrie (Chanter/Lanre Mancia Service: Occupational Therapy Author Type: Occupational Therapist Type: Therapy (PT/OT/Speech/Resp) Filed: 10/21/2018 9:09 AM Note Text: OCCUPATIONAL THERAPY MISSED VISIT SERVICE DATE: 10/21/2018 SERVICE TIME: 903 to 904 ROOM: [place] [address] Attempted Evaluation. Patient not seen due to [...] AM PROGRESS Observed: 10/21/2018 Status: COMPLETED Source: [facility] 8:21 AM [facility] REPOSITORY HNO ID: [id number] Author: Raul Mike Service: Neurology ICU Author [...] Liver Function, Amylase, AND Lipase Recent Labs 10/21/1842910/20/182033 TPROT 8.1 8.6* ALB 4.0 3.9 ALT [...] [facility], [...] VTE Prophylaxis/Anticoagulants 10/20/181929 vte pharmacologic prophylaxis contraindicated (la,oh) 10/20/181929 pneumatic compression stockings (la,al) VTE Prophylaxis: VTE prophylaxis appropriate PATIENT CHECKLIST [...] 2018 TIME: 8:22 AM PAGER/CONTACT #: [phone] EKG Observed: 10/21/2018 Status: F Source: [facility] 6:32 AM CLINIC OTHER CAMPUS REPOSITORY NAME : ELLI GUERRERO PID : [id number] : 1960 Gender : Female Race : ORD : Procedure Date : Oct 21 2018 06:32:55 Edit Date : Dec 01 2018 15:37:32 Diagnosis:MARKED SINUS BRADYCARDIA WITH MARKED SINUS ARRHYTHMIA LEFT AXIS DEVIATION T WAVE ABNORMALITY, CONSIDER ANTEROLATERAL ISCHEMIA ABNORMAL ECG WHEN COMPARED WITH ECG OF 20-OCT-2018 20:30, NO SIGNIFICANT CHANGE WAS FOUND Confirmed by MD KC ANUBHAV ([id number]) on 12/01/2018 3:37:29 PM Ventricular Rate : 41 BPM Atrial Rate : 41 BPM P-R Interval : 206 ms QRS Duration : 96 ms Q-T Interval : 476 ms QTC Calculation(Bezet) : 392 ms P [place] : 41 degrees R [place] : -31 degrees T [place] : 252 degrees Test Reason : Location : 1 : [place] [address] Overread By : MD KC ANUBHAV Edited By : MD DE,ANGELIKA Referred By : UGO DOWNEY Acquired by : Nydia HILL HEMOGRAM/DIFF Collected: 10/21/2018 Status: F Source: [facility] 4:30 AM HEALTH SYSTEM REPOSITORY TYPE [...] 1.57 LAB MONON(LOIN 0.27-0.70 thou/cmm C) Abs. Medina 0.41 LAB EOSN(LOINC 0.00-0.31 thou/cmm ) Abs. Eosin 0.06 LAB BASON(LOIN 0.01-0.08 thou/cmm C) Abs. Baso 0.02 Performed By: #### CBCD1 #### [facility] [address] [place] [address] COMPREHENSIVE PANEL Collected: 10/21/2018 Status: F Source: [facility] 4:30 AM HEALTH SYSTEM REPOSITORY TYPE [...] Gap 11 Performed By: #### P14 #### [place] [address] PHOSPHORUS BLOOD Collected: 10/21/2018 Status: F Source: [facility] 4:30 AM HEALTH SYSTEM REPOSITORY TYPE CODE TESTS RESULT OUT OF REFERENCE UNITS RANGE LAB PHOS(LOINC 2.5-4.9 mg/dL ) Phosphorus Blood 3.5 Performed By: #### PHOS #### [place] [address] MAGNESIUM BLOOD Collected: 10/21/2018 Status: F Source: [facility] 4:30 AM HEALTH SYSTEM REPOSITORY TYPE CODE TESTS RESULT OUT OF REFERENCE UNITS RANGE LAB MAG(LOINC) 1.6-2.6 mg/dL Magnesium Blood 2.2 Performed By: #### MAG #### [facility] [address] [place], [place] [address] HUMERUS 2V AP/LAT Observed: 10/21/2018 Status: F Source: [facility] 4:25 AM HEALTH SYSTEM REPOSITORY Performed at [facility] APPROVED BY: Alden Cherry MD EXAM [...] OR MORE Observed: 10/21/2018 Status: F Source: [facility] AP/TRUE AP/OTHER LEFT 4:25 AM HEALTH SYSTEM REPOSITORY Performed at [facility] APPROVED BY: Alden Cherry MD EXAM [...] W/O CONTRAST Observed: 10/21/2018 Status: F Source: [facility] 4:08 AM HEALTH SYSTEM REPOSITORY Performed at [facility] APPROVED BY: Darius Michael MD EXAMINATION: [...] URINALYSIS ROUTINE Collected: 10/20/2018 Status: F Source: [facility] 9:55 PM HEALTH SYSTEM REPOSITORY TYPE [...] Urine NEGATIVE LAB SPG(LOINC) 1.005-1.030 Specific 1.027 [place], Ur LAB PHUR(LOINC 5.0-8.0 ) pH,Urine 6.5 [...] Cast 0.0 Performed By: #### URIN2 #### [facility] [address] [place], [place] [address] CT HEAD W/O CONTRAST Observed: 10/20/2018 Status: F Source: [facility] 9:41 PM HEALTH SYSTEM REPOSITORY Performed at [facility] APPROVED BY: ELSI VARGAS MD EXAMINATION: [...] HISTORY PHYSICAL Observed: 10/20/2018 Status: COMPLETED Source: [facility] 9:05 PM CLINIC OTHER CAMPUS REPOSITORY HNO ID: [id number] Author: Raul Mike Service: Neurology ICU Author [...] fall [facility] with recurring headaches, [...] RISK PT 04/17/2011 next 04/17/16, Dr. Dimitris Carlson [place] - TOTAL ABDOM HYSTERECTOMY Hysterectomy, [facility] - TOTAL HIP REPLACEMENT bilateral 2007 right hip, 2010 lef t hip FAMILY HISTORY Problem Relation Age of Onset - Diabetes Mother - Hypertension Mother - Cancer Father lung cancer - Diabetes Father - Heart Father NC x 2 - Hypertension Father - Diabetes Maternal Grandmother - Diabetes Maternal Grandfather - Diabetes Paternal Grandmother - Hypertension Paternal Grandmother - Diabetes Paternal Grandfather - Heart Paternal Grandfather NC Social History Marital status: Spouse name: Years of education: Number of children: 3 Social History Main Topics Smoking status: Former Smoker Packs/day: 1.00 Years: 9.00 Quit date: 01/08/1990 Smokeless tobacco: Former User Alcohol use: Yes Comment: extremely rare Drug use: No Sexual activity: No Other Topics Concern Service No Blood Transfusions Yes Seat Belt Yes Self-Exams No [employer] MEDICATIONS Prescriptions Prior to Admission: levETIRAcetam (KEPPRA) [...] reviewed for today's visit: Outside chart from [place] reviewed. Assessment/Plan Neuro 1) Epidural Hematoma Patient with a recent history of a fall with TBI and subdural hematoma Patient c/o RODRIGUEZ and N/V with no neurologic deficits at this time PLAN: CT scan from OSH with worsening hematoma On Keppra for seizure precaution For repeat CT brain [...] VTE Prophylaxis/Anticoagulants 10/20/181929 vte pharmacologic prophylaxis contraindicated (la,oh) 10/20/181929 pneumatic compression stockings (la,oh) VTE Prophylaxis: VTE prophylaxis appropriate PERSONAL INVOLVEMENT IN CARE: Reviewing initiation, responses and adjustments to therapies, coordination of care, and updating updating family with Staff Physician, Dr. Mike. SIGNATURE: Joyce Palomino MD PATIENT NAME: Elli uGerrero DATE: October 20, 2018 TIME: 9:05 PM [phone]END[facility] Raul Mike MD Pt seen [...] goals of care,?medical plan for the day, senior staff consultant recommendations, medical disposition and current medical [...] 1582 HEMOGRAM/DIFF Collected: 10/20/2018 Status: F Source: [facility] 8:34 PM HEALTH SYSTEM REPOSITORY TYPE [...] 1.94 LAB MONON(LOIN 0.27-0.70 thou/cmm C) Abs. Medina 0.41 LAB EOSN(LOINC 0.00-0.31 thou/cmm ) Abs. Eosin 0.13 LAB BASON(LOIN 0.01-0.08 thou/cmm C) Abs. Baso 0.01 Performed By: #### CBCD1 #### [facility] [address] [place] [address] PROTIME Collected: 10/20/2018 Status: F Source: [facility] 8:34 PM HEALTH SYSTEM REPOSITORY TYPE CODE TESTS RESULT OUT OF REFERENCE UNITS RANGE LAB PTI(LOINC) 9.7-13.0 sec Prothrombin Time 11.2 LAB INR(LOINC) 0.90-1.30 INR 1.08 Result Comment: Note: Reference Range Change Vitamin K Antagonist (VKA) Therapeutic Range: INR 2 to 3 (Target INR of 2.5) Note: For patients treated with VKA drugs, such as warfarin, the [employer] 2012 Guideline recommends [...] 70: 252-289 Performed By: #### PT #### [facility] [address] [place] [address] ACTIVATED PTT Collected: 10/20/2018 Status: F Source: [facility] 8:34 HEALTH SYSTEM REPOSITORY TYPE CODE [...] laboratory APTT reagent in use throughout the [facility]. Performed By: #### APTT #### [facility] [address] [place] [address] COMPREHENSIVE PANEL Collected: 10/20/2018 Status: F Source: [facility] 8:[facility] REPOSITORY TYPE CODE TESTS [...] Gap 15 Performed By: #### P14 #### [place] [address] TROPONIN I Collected: 10/20/2018 Status: F Source: [address] HEALTH SYSTEM REPOSITORY TYPE CODE TESTS RESULT OUT OF REFERENCE UNITS RANGE LAB TROP(LOINC) 0.015-0.045 ng/ml Troponin I < 0.015 Performed By: #### TROP #### [place] [address] MAGNESIUM BLOOD Collected: 10/20/2018 Status: F Source: [address] HEALTH SYSTEM REPOSITORY TYPE CODE TESTS RESULT OUT OF REFERENCE UNITS RANGE LAB MAG(LOINC) 1.6-2.6 mg/dL Magnesium Blood 2.1 Performed By: #### MAG #### [place] [address] PHOSPHORUS BLOOD Collected: 10/20/2018 Status: F Source: [facility] 834 HEALTH SYSTEM REPOSITORY TYPE CODE TESTS RESULT OUT OF REFERENCE UNITS RANGE LAB PHOS(LOINC 2.5-4.9 mg/dL ) Phosphorus Blood 3.4 Performed By: #### PHOS #### [place] [address] LIPID PROFILE Collected: 10/20/2018 Status: F Source: [address] HEALTH SYSTEM REPOSITORY TYPE CODE TESTS RESULT [...] Triglyceride >400 Performed By: #### LIPD2 #### [place] [address] LITHIUM SERUM Collected: 10/20/2018 Status: F Source: [facility] 8:32 PM HEALTH SYSTEM REPOSITORY TYPE CODE TESTS RESULT OUT OF REFERENCE UNITS RANGE LAB LITH(LOINC) 0.6-1.2 mEq/L Low Coggon Serum 0.3 Performed By: #### LITH #### [place] [address] HGB A1C Collected: 10/20/2018 Status: F Source: [facility] 8:32 PM HEALTH SYSTEM REPOSITORY TYPE CODE TESTS RESULT OUT OF RANGE REFERENCE UNITS LAB A1C5(LOINC) 4.2-6.3 % High Hgb A1c 7.1 Result Comment: Method is National Glycohemoglobin Standardization Program (NGSP) compliant. LAB ESAVG(LOINC) mg/dl Est. Avg Glucose 157 Performed By: #### HA1C #### [place] [address] EKG Observed: 10/20/2018 Status: F Source: [facility] 8:30 PM CLINIC OTHER CAMPUS REPOSITORY NAME : ELLI GUERRERO PID : [id number] : 1960 Gender : Female Race : [...] ms QTC Calculation(Bezet) : 426 ms P [place] : 49 degrees R [place] : -33 degrees T [place] : 208 degrees Test Reason : Location : 1 : [place] [address] Overread By : MD Clay Sergey Editted By : MD Clay Sergey Referred By : RAUL MIKE Acquired by : Nydia HILL Observed: 10/20/2018 Status: F Source: [facility] MRSA SCREEN 8:30 PM HEALTH SYSTEM REPOSITORY Test performed at [facility] No MRSA detected. Performed By: #### MRSA #### [place] [address] CHEST 1 VIEW Observed: 10/20/2018 Status: F Source: [facility] 7:48 PM HEALTH SYSTEM REPOSITORY Performed at [facility] APPROVED BY: Darius Michael MD EXAMINATION: [...] exam PROGRESS Observed: 10/20/2018 Status: COMPLETED Source: [facility] 2:52 PM CLINIC MAIN CAMPUS REPOSITORY HNO ID: [id number] Author: Rosa (Rn) ARMAND Lopez Service: (none) Author Type: Registered Nurse Type: Progress Notes Filed: 10/20/2018 2:56 PM Note Text: Ashley San from [facility] called with update Patient presently in ED in [place]. Unsure whether she will be admitted. If d /c'd from ED, HH SN will visit patient tomorrow - Rosa Lopez RN, [facility] [phone] BRAIN/HEAD WITHOUT Observed: 10/20/2018 Status: F Source: [facility] CONTRAST 2:27 PM [facility] REPOSITORY [facility] Imaging Services [address] [place] [address] Brain/Head without Contrast MR#: [id number] Acct: [id number] Name: ELLI GUERRERO Rep #: [id number] : 1960 F 58 From: Ankur Ferrara MD PCP: Yandel Bush MD Status: REG ER Study: Brain/Head without Contrast Date of Exam: 10/20/18 Exam# [id number] Ordering Dr: Dylon Owens MD STUDY: CT [...] Ankur Ferrara MD at 15:15 EST Tel [phone], Service support , CC: Dylon Owens MD; Yandel Bush MD Stitcher Special Machine: Signed CBC W/DIFF, AUTOMATED Collected: 10/20/2018 Status: F Source: [facility] 1:55 PM [facility] REPOSITORY TYPE CODE TESTS RESULT OUT OF [...] Lymph 1.42 Performed By: #### L100.0100 #### [facility] [address] [place], [address] BASIC METABOLIC Collected: 10/20/2018 Status: F Source: [place] PROFILE ([facility]) 1:55 PM [facility] REPOSITORY TYPE CODE TESTS RESULT OUT OF [...] GAP 8 Performed By: #### L500.2500 #### [facility] [address] [place], [address] PROTHROMBIN TIME W/INR Collected: 10/20/2018 Status: F Source: [place] 1:55 PM [facility] REPOSITORY TYPE CODE TESTS RESULT OUT OF RANGE REFERENCE UNITS LAB L300.4150 11.7-14.9 SECONDS Normal PROTIME 14.0 LAB L300.4200 Normal INR 1.1 Performed By: #### L300.3900, L300.4310 #### [facility] [address] [place], [address] PARTIAL THROMBOPLAST Collected: 10/20/2018 Status: F Source: [place] TIME 1:55 PM [facility] REPOSITORY TYPE CODE TESTS RESULT OUT OF RANGE REFERENCE UNITS LAB L300.4310 24.1-36.2 Seconds Normal PTT 34.3 Performed By: #### L300.3900, L300.4310 #### [facility] [address] [place], [address] PROGRESS Observed: 10/20/2018 Status: COMPLETED Source: [facility] 12:37 PM [facility] REPOSITORY HNO ID: [id number] Author: Rosa Sales) ARMAND Lopez Service: (none) Author Type: Registered Nurse Type: Progress Notes Filed: 10/20/2018 12:42 PM Note Text: During previous discussion dtr reported that she had not heard back regarding SOC. Called and spoke with Nita from [facility] [phone] Sent requested documents via [employer] States they will f/u as indicated pending disposition of patient after ED PROGRESS Observed: 10/20/2018 Status: COMPLETED Source: [facility] 11:09 AM [facility] REPOSITORY HNO ID: [id number] Author: Rosa Sales) ARMAND Lopez Service: (none) Author Type: Registered Nurse [...] might be hidden SUMMARY: -Pt discharged from [facility] on 10/17 -Follow up appointment on- advised ER -Medication review done- new meds only -Admitted for: Fall SDH, ICH CONCERNS: Spoke with dtr, Joanne. Reports patient was better when she got home on10/17, but vomited 3 times yesterday and developed a severe RODRIGUEZ- as bad as when first admitted. Took her to [place] ED yesterday. Reportedly CT scan negative for [...] mental status is worse since d/c from [facility] on 10/17 not worse since ED visit yesterday. Up walking to with walker. Advised ED d/t continued vomiting, severe RODRIGUEZ, change in mental status Dtr reluctant to take back to [facility]. Advised to take to [facility] now. Dtr agreed- plans to take by [...] Diagnosis Date Noted - SDH (subdural hematoma) ([facility]) 10/14/2018 - Midline shift of brain due to hematoma 10/14/2018 - Fall 10/14/2018 - TBI (traumatic brain injury) ([facility]) 10/14/2018 - ICH (intracerebral hemorrhage) ([facility]) 10/13/2018 - Type 2 diabetes mellitus without complication (HCC) 01/08/2012 ? ? 58 year old female [...] below ? ? -- Rosa Lopez RN, [facility] [phone] CNPTOUTREA Observed: 10/20/2018 Status: COMPLETED Source: [facility] 12:00 [facility] REPOSITORY Patient Outreach (FAMPWS) ELLI GUERRERO ([id number]) 1960 F Date Time Provider Department 10/20/18 ROSA LOPEZ (RN) FANIPWS During your visit today, we recorded the [...] might be hidden SUMMARY: -Pt discharged from [facility] on 10/17 -Follow up appointment on- advised ER -Medication review done- new meds only -Admitted for: Fall SDH, ICH CONCERNS: Spoke with dtr, Joanne. Reports patient was better when she got home on10/17, but vomited 3 times yesterday and developed a severe RODRIGUEZ- as bad as when first admitted. Took her to [place] ED yesterday. Reportedly CT scan negative for [...] mental status is worse since d/c from [facility] on 10/17 not worse since ED visit yesterday. Up walking to with walker. Advised ED d/t continued vomiting, severe RODRIGUEZ, change in mental status Dtr reluctant to take back to [facility]. Advised to take to [facility] now. Dtr agreed- plans to take by [...] Diagnosis Date Noted - SDH (subdural hematoma) ([facility]) 10/14/2018 - Midline shift of brain due to hematoma 10/14/2018 - Fall 10/14/2018 - TBI (traumatic brain injury) ([facility]) 10/14/2018 - ICH (intracerebral hemorrhage) ([facility]) 10/13/2018 - Type 2 diabetes mellitus without complication ([facility]) 01/08/2012 ? ? 58 year old female [...] f/u with Dr. Schmidt in 4-6 weeks, sulyppra 6. PT pending ? Consulted Services and [...] Pager: below ? ? Rosa Lopez RN, [facility]-[phone] Rosa Lopez RN, RN 10/20/2018 12:42 PM Signed During previous discussion dtr reported that she had not heard back regarding SOC. Called and spoke with Nita from [facility] [phone] Sent requested documents via [employer] States they will f/u as indicated pending disposition of patient after ED Rosa Lopez RN, RN 10/20/2018 2:56 PM Signed Ashley San from [facility] called with update Patient presently in ED in [place]. Unsure whether she will be admitted. If d /c'd from ED, [facility] will visit patient tomorrow Rosa Lopez RN, [phone] Allergies As of Date: 10/20/2018 (No Known Allergies) Date Reviewed: 10/16/2018 Reviewed by: Miguelina (Rn) ARMAND Ronquillo - Fully Assessed Reason for Visit: Transition Of Care [4469] Cmt: hospital d/c 10/17 TBI, ICH, SDH [...] CONTRAST Observed: 10/19/2018 Status: F Source: [facility] 11:41 PM [place] [address] Patient: ELLI GUERRERO Phone#: : 1960 Age: 58 Gender: F Pt. Type: ER Account: [id number] Location: 052 Ordering: JOHN FANG Exam Date: 10/19/2018/23:34 Family Phys: YANDEL BUSH Charge Code: [id number] Physician: [place] Order #: [id number] DLP Dose#: [id number] PROCEDURE: CT BRAIN WITHOUT CONTRAST COMPARISON: [facility], CT, BRAIN W/O CON, 10/13/2018, 15:20. [...] - Page 2 of 2 Patient: ELLI GUERRERO. Phone#: : 1960 Age: 58 Gender: F Pt. Type: ER Account: [id number] Location: 052 Ordering: JOHN FANG Exam Date: 10/19/2018/23:34 Family Phys: YANDEL BUSH Charge Code: [id number] Physician: [place] Order #: [id number] DLP Dose#: [id number] CONCLUSION: 1. Left temporoparietal [...] EMERGENCY REPORT Observed: 10/19/2018 Status: F Source: [facility] 10:52 PM [facility] EMERGENCY ROOM REPORT NAME ACCOUNT SEX AGE ADMIT DISCHARGE PT MED. RECORD# NUMBER DATE DATE TYPE CHRISTI [id number] F 58 10/19/18 10/20/18 3 ELLI Vargas [id number] ROOM: ER DATE OF : 1960 DICTATING PHYSICIAN: John Fang HISTORY OF PRESENT ILLNESS: This is a 58-year-old female with a recent history of traumatic intracranial hemorrhage who presents with concern for nausea and vomiting. She states that she was discharged from [facility] yesterday after being admitted for traumatic intracranial hemorrhage. She states that she was seen here at this emergency department after a fall and was diagnosed with an epidural hematoma. She states that she went to [facility] and received multiple CT scans for which [...] subdural bleeding. This was confirmed with radiologist construction recruiter with comparison of previous imaging. EMERGENCY DEPARTMENT COURSE AND TREATMENT: The patient appears well and nontoxic. Her vital signs are within normal limits. She is not actively vomiting. She has no focal or neurologic deficit. Pupils are equal and reactive. CT shows evidence of epidural and subdural bleeding which are unchanged from previously. I personally discussed this with the radiologist construction recruiter who compared this to previous CT imaging. [...] John Fang DO 10/20/18 02:17 JOB #: [id number] Transcribed By: miesha 10/20/18 05:11 Electronically signed by: E-SIGN: John Fang D.O. 10/21/18 01:51 Page 2 of 2 ELLI GUERRERO Emergency Room Report CNDS Observed: 10/17/2018 Status: COMPLETED Source: [facility] 4:18 PM CLINIC OTHER CAMPUS REPOSITORY HNO ID: [id number] Author: Jorge Estrada Service: General Surgery Author [...] weeks Comment - 4-6 weeks Melissa Schmidt [phone] [facility] [address] PCP Requested Referral Additional Provider to Provider [...] Coags, BMP, Mg, Phos Recent Labs 10/26/18 02510/25/1833910/24/18 0432 WBC 6.20 8.89 8.35 HB 11.6 [...] file. FOLLOW-UP APPOINTMENTS ALREADY SCHEDULED WITH A [facility] PROVIDER Future Appointments Date Time Provider Department Center 04/10/2019 9:30 AM Holden ROQUE [facility] SHARI The patient's risk for 30-day readmission [...] questions or concerns Mon-Sat 6a-5p please page [phone]. After 5pm and on Weekends and Holidays, please page [phone]. SIGNATURE: Jorge Estrada MD PAGER/CONTACT #: DATE: October 18, 2018 TIME: 4:26 AM CASE MANAGEM Observed: 10/17/2018 Status: COMPLETED Source: [facility] 3:01 PM [facility] OTHER WITHAMS REPOSITORY HNO ID: [id number] Author: Margie HenriquezRnEthan Rodriges RN Service: Care Management Author Type: Registered Nurse Type: Care Mgt Progress Note Filed: 10/17/2018 3:03 PM Note Text: CARE MANAGEMENT PROGRESS NOTE SERVICE DATE: 10/17/2018 SERVICE TIME: 3:01 PM LOS: 4 days FREEDOM OF CHOICE GIVEN: Yes explaind to patient and dtr at bedside Provider List: Home Care Preference: [facility] care Met with patient and dtr at bedside, explained therapy recommendations of home pt/ot- hhc agency list given. Patient and dtr chose [facility], referral placed. Await [facility] agency response and continue to follow. SIGNATURE: Margie Rordiges RN PATIENT NAME: Elli Guerrero DATE: October 17, 2018 TIME: 3:01 PM PAGER/CONTACT #: [phone] THERAPY NT Observed: 10/17/2018 Status: COMPLETED Source: [facility] 2:02 PM [facility] OTHER WITHAMS REPOSITORY HNO ID: [id number] Author: Juany HenriquezOtr/Lanre Ceja Service: Occupational Therapy Author Type: Occupational Therapist Type: Therapy (PT/OT/Speech/Resp) Filed: 10/17/2018 2:58 PM Note Text: Occupational Therapy Evaluation SERVICE DATE: 10/17/2018 SERVICE TIME: 1325 to 1350 ROOM: [id number] Recommended Discharge Disposition: Outpatient Occupational Therapy Recommended [...] Functions and Awareness Interventions Provided: Evaluation;Cognitive Training (24920 or G0515) $ Evaluation-Low (10812) Billed Units: 1 unit Cognitive Training (G0515) Treatment Minutes (2018 Only): 10 $ Cognitive Training (G0515) Billed Units (2018 Only): 1 unit Skilled Intervention(s): Facilitated completion of the [place] Cognitive Assessment (MOCA), which is a rapid [...] CODE: OT 6 Clicks Score: 20 (10/17/18 132) Self Care Current Status (G8987): CJ (10/17/181324) Self Care Goal Status (G8988): CI (10/17/181324) Based on clinical assessment and the score [...] RISK PT 04/17/2011 next 04/17/16, Dr. Dimitris Carlson [place] - TOTAL ABDOM HYSTERECTOMY Hysterectomy, LEONILA - [...] complete details for this therapy evaluation/treatment. SIGNATURE: Priti Hauser/CHANTE PATIENT NAME: Elli Guerrero DATE: October 17, 2018 TIME: 2:02 PM I reviewed and agree with the documentation corresponding to this therapy visit. SIGNATURE: ELOINA Serra/Cecilio DATE: October 17, 2018 TIME: 2:58 PM Evaluation and/or treatment directly supervised by licensed Occupational Therapist. NURSING PROG Observed: 10/17/2018 Status: COMPLETED Source: [facility] 1:18 PM [facility] OTHER WITHAMS REPOSITORY HNO ID: [id number] Author: Palmira Sales) ARMAND Jimenez Service: Nursing Author Type: Registered Nurse [...] to pt and family at bedside with checkout supervisor Milly what resident said as well as plan to transfer to the floor per resident rather than dc to home. All verbalize understanding and seem content with explanation. GLUCOSE METER Collected: 10/17/2018 Status: F Source: [facility] 12:35 PM HEALTH SYSTEM REPOSITORY TYPE CODE TESTS RESULT OUT OF REFERENCE UNITS RANGE LAB GLUBL(LOINC 70-99 mg/dL ) High Glucose Meter 154 Result Comment: RN NOTIFIED Performed By: #### GLMET #### [place] [address] NURSING PROG Observed: 10/17/2018 Status: COMPLETED Source: [facility] 12:19 PM [facility] OTHER WITHAMS REPOSITORY HNO ID: [id number] Author: Palmira HenriquezRn) ARMAND Jimenez Service: Nursing Author Type: Registered Nurse [...] be frustrated, RN offered to get the greenhouse florist to speak with dtr. RN paged greenhouse florist Milly re situation. Milly stated that she would be along as quickly as she could. RN updated pt, dtr, and mother re contact with checkout supervisor. THERAPY NT Observed: 10/17/2018 Status: COMPLETED Source: [facility] 11:38 AM CLINIC OTHER CAMPUS REPOSITORY O ID: [id number] Author: Mindi (Pt) Anish Service: Physical Therapy Author Type: Physical Therapist Type: Therapy (PT/OT/Speech/Resp) Filed: 10/17/2018 2:59 PM Note Text: Physical Therapy Evaluation SERVICE DATE: 10/17/2018 SERVICE TIME: 1043 to 1106 ROOM: [id number] Recommended Discharge Disposition: Outpatient physical therapy for [...] mobility-other;Unsteadiness on feet Interventions Provided: Evaluation;Therapeutic Activity (04406) $ Evaluation-Moderate (22255) Billed Units: 1 unit Therapeutic Activity (77951) Treatment Minutes: 9 1 unit Skilled Intervention(s): [...] CODE: PT 6 Clicks Score: 20 (10/17/18 104) Mobility: Walking and Moving Around Current Status (G8978): CJ (10/17/18 104) Mobility: Walking and Moving Around Goal Status (G8979): CI (10/17/18 104) Based on clinical assessment and the score [...] RISK PT 04/17/2011 next 04/17/16, Dr. Dimitris Carlson Denton - TOTAL ABDOM HYSTERECTOMY Hysterectomy, LEONILA - [...] details for this therapy evaluation/treatment. SIGNATURE: Mindi Oconnell PT PATIENT NAME: Elli Guerrero DATE: October 17, 2018 TIME: 11:38 AM NUTRITION Observed: 10/17/2018 Status: COMPLETED Source: [facility] 8:19 AM CLINIC OTHER CAMPUS REPOSITORY HNO ID: [id number] Author: Angela Beasley Service: Nutrition Therapy Author [...] female transferred to the emergency department from [facility] via EMS for evaluation s/p fall. Pt was seen at [facility] for evaluation of a fall. ?Patient slipped [...] 0659 10/17/18 07 - 10/18/18 0659 Shift 9472-5060 2600-5640 5549-8189 24 Hour Total 4744-4930 1624-4711 9953-7615 24 Hour Total I N T A K E PO 360 360 PO 360 360 IV 172 172 NS 0.9% 172 172 Shift Total 172 360 532 O U T P U T Urine 1750 347 866 4397 Void (ml) 850 409 284 1770 Urine Incontinence/Not Saved 1 x 1 x Tube Output ( External Urinary Drain 10/14/18 1205 Assessment) 900 900 # of BMs Number of BMs 0 x 0 x Shift Total 1750 136 072 8900 Weight (kg) 115.8 115.8 113.1 113.1 113.1 [...] October 17, 2018 TIME: 8:19 AM PAGER: [phone] PROGRESS Observed: 10/17/2018 Status: COMPLETED Source: [facility] 6:15 AM CLINIC OTHER CAMPUS REPOSITORY HNO ID: [id number] Author: Rohit Omer Service: Trauma Author Type: [...] kg/m? O2 Therapy: Room Air IANDO: Date 10/16/18699 - 10/17/1865810/17/18699 - 10/18/1859 Shift 4270-1339 6180-3082 1706-0113 24 Hour Total 3547-8158 3742-8925 4426-1528 24 Hour Total I N T A K E PO 360 360 PO 360 360 IV 172 172 NS 0.9% 172 172 Shift Total 172 360 532 O U T P U T Urine 1750 610 842 0338 Void (ml) 850 229 198 8434 Urine Incontinence/Not Saved 1 x 1 x Tube Output ( External Urinary Drain 10/14/18 1205 Assessment) 900 900 # of BMs Number of BMs 0 x 0 x Shift Total 1750 741 161 7679 Weight (kg) 115.8 115.8 113.1 113.1 113.1 [...] Diagnosis Date Noted - SDH (subdural hematoma) ([facility]) 10/14/2018 - Midline shift of brain due to hematoma 10/14/2018 - Fall 10/14/2018 - TBI (traumatic brain injury) ([facility]) 10/14/2018 - ICH (intracerebral hemorrhage) ([facility]) 10/13/2018 - Type 2 diabetes mellitus without complication ([facility]) 01/08/2012 58 year old female s/p GLF [...] IONIZED CALCIUM Collected: 10/17/2018 Status: F Source: [facility] 6:04 AM HEALTH SYSTEM REPOSITORY TYPE CODE TESTS RESULT OUT OF REFERENCE UNITS RANGE LAB CAION(LOINC 4.43-4.93 mg/dL ) Ionized 4.83 Calcium LAB PHCAI(LOINC 7.320-7.420 ) pH 7.369 LAB CAPH(LOINC) 4.36-4.73 mg/dL High Ionized 4.76 Ca,PH7.4 Performed By: #### IONCA #### [place] [address] MDRD GFR Collected: 10/17/2018 Status: F Source: [facility] 6:03 HEALTH SYSTEM REPOSITORY TYPE CODE TESTS RESULT OUT OF RANGE REFERENCE UNITS LAB GFRFN(LOINC >60mL/min/1.73m ) 2 eGFR >60 Result Comment: If the patient is , multiply the result by 1.210. Performed By: #### GFR #### [facility] [address] [place] [address] HEMOGRAM Collected: 10/17/2018 Status: F Source: [facility] 6:03 HEALTH SYSTEM REPOSITORY TYPE CODE TESTS RESULT [...] MPV 9.9 Performed By: #### CBC1 #### [facility] [address] [place] [address] BASIC PANEL Collected: 10/17/2018 Status: F Source: [place] [address]:[facility] SYSTEM REPOSITORY TYPE CODE TESTS RESULT [...] Gap 12 Performed By: #### P8 #### [facility] [address] [place] [address] MAGNESIUM BLOOD Collected: 10/17/2018 Status: F Source: [facility] 6:03 AM HEALTH SYSTEM REPOSITORY TYPE CODE TESTS RESULT OUT OF REFERENCE UNITS RANGE LAB MAG(LOINC) 1.6-2.6 mg/dL Magnesium Blood 2.1 Performed By: #### MAG #### [place] [address] PHOSPHORUS BLOOD Collected: 10/17/2018 Status: F Source: [facility] 6:03 AM HEALTH SYSTEM REPOSITORY TYPE CODE TESTS RESULT OUT OF REFERENCE UNITS RANGE LAB PHOS(LOINC 2.5-4.9 mg/dL ) Phosphorus Blood 4.1 Performed By: #### PHOS #### [place] [address] PROGRESS Observed: 10/17/2018 Status: COMPLETED Source: [facility] 5:21 AM CLINIC OTHER CAMPUS REPOSITORY O ID: [id number] Author: Jorge Estrada Service: ADT-SICU Author Type: [...] (97.7 ?F), Max:37.2 ?C (99 ?F) Date 10/16/18699 - 10/17/1865810/17/18699 - 10/18/1859 Shift 9379-4817 0796-1363 4293-0852 24 Hour Total 1786-3597 3740-2623 3164-5705 24 Hour Total I N T A K E PO 360 360 PO 360 360 IV 172 172 NS 0.9% 172 172 Shift Total 172 360 532 O U T P U T Urine 1750 306 029 8923 Void (ml) 850 193 606 2401 Urine Incontinence/Not Saved 1 x 1 x Tube Output ( External Urinary Drain 10/14/18 1205 Assessment) 900 900 # of BMs Number of BMs 0 x 0 x Shift Total 1750 646 281 4711 Weight (kg) 115.8 115.8 113.1 113.1 113.1 [...] and on Weekends and Holidays, please page [phone]. SIGNATURE: Jorge Estrada MD PATIENT NAME: Elli Guerrero DATE: October 17, 2018 TIME: 5:23 AM PAGER: above THERAPY NT Observed: 10/16/2018 Status: COMPLETED Source: [facility] 9:20 AM CLINIC OTHER CAMPUS REPOSITORY HNO ID: [id number] Author: Yasmin (Inside Sales Trainer) KIRK Guzman/GUEST SERVICE TEAM LEADER Service: Speech/Swallow Author Type: Speech Language Pathologist Type: Therapy (PT/OT/Speech/Resp) Filed: 10/16/2018 9:28 AM Note Text: Speech Therapy Clinical Swallow Evaluation SERVICE DATE: 10/16/2018 SERVICE TIME: 0850 to 0912 ROOM: [id number] Nursing Recommendations: See swallow guide posted in [...] oral phase Interventions Provided: Clinical Swallow Evaluation (31252) $ Clinical Swallow Evaluation (09641) Billed Units: 1 unit Total Treatment Time (minutes): 22 FUNCTIONAL G CODE: G Code Functional Limitations: Swallowing (10/16/18 5863) Swallow Current Status (G8996): CI - At least 1 percent but less than 20 percent impaired, limited or restricted (11/22/18 0850) Swallow Goal Status (G8997): CH - 0 percent impaired, limited or restricted (10/16/18 0850) Based on clinical assessment and the score [...] for this therapy evaluation/treatment. SIGNATURE: Yasmin Guzman CCC-GUEST SERVICE TEAM LEADER PATIENT NAME: Elli Guerrero DATE: October 16, 2018 TIME: 9:20 AM PROGRESS Observed: 10/16/2018 Status: COMPLETED Source: [facility] 8:17 AM CLINIC OTHER CAMPUS REPOSITORY HNO ID: [id number] Author: Rohit Omer Service: General Surgery Author [...] 0659 10/16/18 07 - 10/17/18 0659 Shift 4420-1391 1427-7761 5511-0483 24 Hour Total 9529-7816 7065-5729 3193-2108 24 Hour Total I N T A K E IV 248 226 054 6733 172 172 D5 NS 248 248 NS 0.9% 126 352 8432 172 172 Levetiracetam IV 100 100 Shift Total 248 671 254 7566 172 172 O U T P U [...] Diagnosis Date Noted - SDH (subdural hematoma) ([facility]) 10/14/2018 - Midline shift of brain due to hematoma 10/14/2018 - Fall 10/14/2018 - TBI (traumatic brain injury) ([facility]) 10/14/2018 - ICH (intracerebral hemorrhage) ([facility]) 10/13/2018 - Type 2 diabetes mellitus without complication ([facility]) 01/08/2012 58 year old female s/p GLF [...] questions or concerns Mon-Fri 6a-5p please page [phone]. After 5pm and on Weekends and Holidays, please page [phone] if in ICU or [phone] if on RNF. William Gutierrez MD 10/16/2018 8:20 AM PROGRESS Observed: 10/16/2018 Status: COMPLETED Source: [facility] 5:07 AM CLINIC OTHER CAMPUS REPOSITORY HNO ID: [id number] Author: Yandel Reyes Service: ADT-SICU Author Type: [...] ?F), Max:36.8 ?C (98.2 ?F) Date 10/15/18 0700 - 10/16/18 0659 10/16/18 0700 - 10/17/18 0659 Shift 5550-5990 4845-1399 8087-7191 24 Hour Total 6608-6933 5236-7414 5757-7198 24 Hour Total I N T A K E IV 367 962 1954 D5 NS 248 248 NS 0.9% 783 783 Levetiracetam IV 100 100 Shift Total 680 380 5797 O U T P U T Urine [...] Right Antecubital 16 Gauge 2 days Peripheral 10/15/18 0600 Short Right Wrist 20 Gauge less [...] questions or concerns Mon-Fri 6a-5p please page [phone]. After 5pm and on Weekends and Holidays, please page [phone]. SIGNATURE: Jorge Estrada MD PATIENT NAME: Elli [...] IONIZED CALCIUM Collected: 10/16/2018 Status: F Source: [facility] 4:30 AM HEALTH SYSTEM REPOSITORY TYPE CODE TESTS RESULT OUT OF REFERENCE UNITS RANGE LAB CAION(LOINC 4.43-4.93 mg/dL ) Low Ionized 4.40 Calcium LAB PHCAI(LOINC 7.320-7.420 ) pH 7.404 LAB CAPH(LOINC) 4.36-4.73 mg/dL Ionized 4.41 Ca,PH7.4 Performed By: #### IONCA #### [place] [address] HEMOGRAM Collected: 10/16/2018 Status: F Source: [facility] 4:30 HEALTH SYSTEM REPOSITORY TYPE CODE TESTS RESULT [...] MPV 9.6 Performed By: #### CBC1 #### [place] [address] BASIC PANEL Collected: 10/16/2018 Status: F Source: [facility] 4:30 AM HEALTH SYSTEM REPOSITORY TYPE [...] Gap 10 Performed By: #### P8 #### [place] [address] PHOSPHORUS BLOOD Collected: 10/16/2018 Status: F Source: [facility] 4:30 AM HEALTH SYSTEM REPOSITORY TYPE CODE TESTS RESULT OUT OF REFERENCE UNITS RANGE LAB PHOS(LOINC 2.5-4.9 mg/dL ) Phosphorus Blood 3.6 Performed By: #### PHOS #### [place] [address] MAGNESIUM BLOOD Collected: 10/16/2018 Status: F Source: [facility] 4:30 AM HEALTH SYSTEM REPOSITORY TYPE CODE TESTS RESULT OUT OF REFERENCE UNITS RANGE LAB MAG(LOINC) 1.6-2.6 mg/dL Magnesium Blood 2.0 Performed By: #### MAG #### [place] [address] NURSING PROG Observed: 10/15/2018 Status: COMPLETED Source: [facility] 1:54 PM [facility] REPOSITORY HNO ID: [id number] Author: Palmira (Rn) ARMAND Jimenez Service: Nursing Author Type: Registered Nurse Type: Nursing Progress Note Filed: 10/15/2018 1:58 PM Note Text: Pt was very minimally responsive throughout the day. RN spoke with IMAGING TECH re concern and need to address. CT was ordered and then cancelled by sicu resident. RN brought pt back and settled her in. RN returned to room less than an hour later and pt was wide awake, speaking to family, on phone showing pictures of her dog to staff. PROGRESS Observed: 10/15/2018 Status: COMPLETED Source: [facility] 9:30 AM CLINIC OTHER CAMPUS REPOSITORY O ID: [id number] Author: Evita Potts Service: Neurosurgery Author Type: Nurse Practitioner Type: Progress Notes Filed: 10/15/2018 4:17 PM Note Text: Neurosurgery Inpatient Progress Note Attending: Dr. Milagro Fan Location: [id number]/[facility]* Hospital Day: 3 ASSESSMENT/ PLAN: ICH - [...] year old female who was transferred from [facility] via EMS s/p fall and hitting head [...] mental status. OBJECTIVE: LABS: CBC: Recent Labs 10/15/1831410/14/1834810/13/18172710/09/18 1652 WBC 5.57 5.37 6.23 -- HB 11.2 10.8* 12.2 -- HCT 35.3 34.1 37.6 -- PLT 109* 100* 113* 125* MCV 91.5 91.9 90.0 -- COAG: Recent Labs 10/13/18 1728 APTT 28.4 INR 1.02 BMP: Recent Labs 10/15/1831410/14/1834810/13/18 1728 GLUC 165* 241* 156* NA 140 142 [...] (!) 50 (!) 52 (!) 57 Resp: 15 15 19 16 Temp: TempSrc: SpO2: 99% 94% 94% 95% [...] b/l upper and lower extremities. SIGNATURE: Evita Potts APRN.CNP PATIENT NAME: Elli Guerrero DATE: 10/15/2018 TIME: 4:04 PM PAGER: [phone] PROGRESS Observed: 10/15/2018 Status: COMPLETED Source: [facility] 5:24 AM CLINIC OTHER CAMPUS REPOSITORY O ID: [id number] Author: Cheryle Smith Service: ADT-SICU Author Type: [...] (97.2 ?F), Max:36.8 ?C (98.2 ?F) Date 10/14/18 07 - 10/15/18 0659 10/15/18 07 - 10/16/18 0659 Shift 5524-7956 6751-1096 5142-8115 24 Hour Total 4242-2357 5571-5721 5852-5988 24 Hour Total I N T A K E PO 60 80 140 PO 60 80 140 IV 909 118.4 1027.4 D5 NS 809 118.4 927.4 Levetiracetam IV 100 100 Shift Total 969 198.4 1167.4 O U T P U T Urine 800 998 922 7084 Urine Incontinence/Not Saved 1 x 1 x Tube Output ([REMOVED] Indwelling Urinary Catheter 10/13/18 Perez 16 Fr 10/14/18 1202) 800 800 Tube Output ( External Urinary Drain 10/14/18 1205 Assessment) 600 200 800 Shift Total 800 515 630 4668 Weight (kg) 116.4 117.2 117.2 117.2 117.2 [...] 35.3 34.1 37.6 PLT 109* 100* 113* [place] 0.6 Phos 3.0 Ma.1 Ionized Ca: 5.03, [...] w/o Contrast 10/14/2018: No interval change - [place] blood: 0.6 CV: - tele - EKG [...] questions or concerns Mon-Fri 6a-5p please page [phone]. After 5pm and on Weekends and Holidays, please page [phone]. Decrease mental status this morning. Will repeat CT head. Place [place] and start TF. Also for meds Coggon level ok if low If CT head [...] Diagnosis Date Noted - SDH (subdural hematoma) ([facility]) 10/14/2018 - Midline shift of brain due to hematoma 10/14/2018 - Fall 10/14/2018 - TBI (traumatic brain injury) ([facility]) 10/14/2018 - ICH (intracerebral hemorrhage) ([facility]) 10/13/2018 - Type 2 diabetes mellitus without complication ([facility]) 01/08/2012 Management included sedation, pain control and [...] IONIZED CALCIUM Collected: 10/15/2018 Status: F Source: [facility] 3:15 AM HEALTH SYSTEM REPOSITORY TYPE CODE TESTS RESULT OUT OF REFERENCE UNITS RANGE LAB CAION(LOINC 4.43-4.93 mg/dL ) High Ionized 5.03 Calcium LAB PHCAI(LOINC 7.320-7.420 ) pH 7.373 LAB CAPH(LOINC) 4.36-4.73 mg/dL High Ionized 4.96 Ca,PH7.4 Performed By: #### IONCA #### [place] [address] HEMOGRAM Collected: 10/15/2018 Status: F Source: [facility] 3:15 AM HEALTH SYSTEM REPOSITORY TYPE [...] MPV 9.8 Performed By: #### CBC1 #### [place] [address] BASIC PANEL Collected: 10/15/2018 Status: F Source: [facility] 3:15 AM HEALTH SYSTEM REPOSITORY TYPE [...] Gap 11 Performed By: #### P8 #### [place] [address] MAGNESIUM BLOOD Collected: 10/15/2018 Status: F Source: [facility] 3:15 AM HEALTH SYSTEM REPOSITORY TYPE CODE TESTS RESULT OUT OF REFERENCE UNITS RANGE LAB MAG(LOINC) 1.6-2.6 mg/dL Magnesium Blood 2.1 Performed By: #### MAG #### [place] [address] PHOSPHORUS BLOOD Collected: 10/15/2018 Status: F Source: [facility] 3:15 AM HEALTH SYSTEM REPOSITORY TYPE CODE TESTS RESULT OUT OF REFERENCE UNITS RANGE LAB PHOS(LOINC 2.5-4.9 mg/dL ) Phosphorus Blood 3.0 Performed By: #### PHOS #### [place] [address] LITHIUM SERUM Collected: 10/14/2018 Status: F Source: [facility] 8:30 PM HEALTH SYSTEM REPOSITORY TYPE CODE TESTS RESULT OUT OF REFERENCE UNITS RANGE LAB LITH(LOINC) 0.6-1.2 mEq/L [place] Serum 0.6 Performed By: #### LITH #### [place] [address] NUTRITION Observed: 10/14/2018 Status: COMPLETED Source: [facility] 4:26 PM CLINIC OTHER CAMPUS REPOSITORY HNO ID: [id number] Author: Carolann Ortiz RD Service: Nutrition Therapy [...] female transferred to the emergency department from [facility] via EMS for evaluation s/p fall. Pt was seen at [facility] for evaluation of a fall. Patient slipped [...] RISK PT 04/17/2011 next 04/17/16, Dr. Dimitris Carlson [place] - TOTAL ABDOM HYSTERECTOMY Hysterectomy, LEONILA - TOTAL HIP REPLACEMENT bilateral 2008 right hip, 2010 lef t hip Lines [...] : 136 kg (299 lb 13.2 oz) [place] Body Weight: 57kg Resting Metabolic Rate: 1743 Estimated kilocalorie needs: 1700 kilocalories determined by 30 kcal/kg IBW Estimated protein needs: 68 grams determined by 1.2 g/kg [place] weight Estimated fluid needs: 1700 milliliters based [...] 0659 10/14/18 0700 - 10/15/18 0659 Shift 7313-0771 2284-0821 24 Hour Total 6385-6219 0604-9116 2707-3748 24 Hour Total I N T A K E PO 60 60 PO 60 60 IV 795 389 2723 909 65.7 974.7 I.V. 100 100 D5 NS 922 922 809 65.7 874.7 Levetiracetam IV 100 100 Shift Total 101 829 5074 969 65.7 1034.7 O U T P [...] MGT INIT Observed: 10/14/2018 Status: COMPLETED Source: [facility] 3:49 PM CLINIC OTHER CAMPUS REPOSITORY HNO ID: [id number] Author: Margie (Rn) ARMAND Rodriges Service: Care Management Author Type: Registered Nurse Type: Care Mgt Initial Assessment Filed: 10/14/2018 4:11 PM Note Text: CARE MANAGEMENT: ASSESSMENT AND DISCHARGE PLAN SERVICE DATE: 10/14/2018 SERVICE TIME: 3:49 PM PRIMARY CARE PHYSICIAN: Yandel Bush MD ADMISSION STATUS: Inpatient Needs Prior to Discharge: To Be Determined;Home Care Order;Accepting Facility;Bed Availability;OT/PT Evaluation;Facility or Agency Choices;Discharge Prescriptions;Insurance Authorization 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 No Advance Directive: Health Literacy Assessment: Patient is unable to complete at this time due to Patient drowsy/lethargic. FUNCTIONAL AND COGNITIVE/BEHAVIORAL PRIOR TO ADMISSION ASSESSMENT: Unable to complete assessment at this time due to Patient drowsy/lethargic Has the Patient Been in a Nursing Home Facility in the Past 30 days? No SOCIAL: Living Arrangement: Home Lives With: Spouse Financial Resources: Retired Primary Contact: Extended Emergency Contact Information Primary Emergency Contact: Leigha Garcia Relation: Daughter Secondary Emergency Contact: Kvng Velez [place] Relation: Son Supportive: Yes Other Important Patient Contacts: Family: Name: Joanne dillard Cell Caregiver Assessment: Caregiver is ready, willing [...] this time POTENTIAL TRANSITION PLANS Rehab Facility Nursing Home Facility/Intermediate Care Facility To Be Determined Chart reviewed. Patient here with ICH- await neurosurgery input for possible intervention. Patient from home with spouse Lobito- in a 2-story home with 2- steps into home. Dtr Joanne lives next door. Patient sleeps on the first floor in a recliner chair. Patient has a pcp, +Rx coverage, + glucometer. Patient gets medications at [facility] in [place]. Patient was transporting self to appointments. Anticipate will have rehab needs at discharge, await pt/ot. Cm to continue to follow. SIGNATURE: Margie Rodriges RN PATIENT NAME: Elli Guerrero DATE: October 14, 2018 TIME: 3:49 PM PAGER/CONTACT #: [phone] PLAN OF CARE Observed: 10/14/2018 Status: COMPLETED Source: [facility] 3:35 PM CLINIC OTHER CAMPUS REPOSITORY HNO ID: [id number] Author: Xin Ramos (Loan Supervisor) Service: Pharmacy Author Type: Pharmacist Type: Plan of Care Filed: 10/14/2018 3:37 PM Note Text: MEDICATION HISTORY AND MEDICATION RECONCILIATION Patient Name:Phil Guerrero : 1960 Source of history:Pharmacy records: [facility], [facility] and [facility] Medication Nonadherence Identified: No barriers noted The above information represents the best possible medication history: Yes Reconciliation completed? Yes All COGNOS BI DEVELOPER medications addressed by LIP Additional comments: N/A Verified medications through [facility]. Was unable to speak with patient to confirm OTC products as she is unarousable at this time. Allergies: ALLERGIES No Known Allergies Preferred Pharmacy: [facility], [facility] Current COGNOS BI DEVELOPER Medications: Prior to Admission medications as of [...] ONE TABLET BY MOUTH DAILY XIN RAMOS, DENTAL EQUIPMENT INSTALLER AND SERVICER October 14, 2018 3:36 PM ALLIED HEALTH Observed: 10/14/2018 Status: COMPLETED Source: [facility] 10:40 AM CLINIC OTHER CAMPUS REPOSITORY [facility] ID: [id number] Author: Chaplain Lovett (Chaplain) Service: Spiritual Care Author Type: Mailing Machine Operator Type: Allied Health Filed: 10/14/2018 11:48 AM Note Text: SPIRITUALCARE Spiritual Care Visit- Brief Note Name: Elli Guerrero Date: October 14, 2018 Notes: Attempted follow-up visit. Pt resting comfortably. Left card. Chaplains will follow up as appropriate. Mailing Machine Operator Signature: Chaplain Rachell To contact the Spiritual Care Department: Please call [phone] or Page the On-Call Mailing Machine Operator at pager [phone] Thank you for the opportunity to be of service. This is an electronically created document. IF PRINTED, PLEASE DO NOT REMOVE FROM THE CHART OR MODIFY PRINTED COPY. CONSULT Observed: 10/14/2018 Status: COMPLETED Source: [facility] 9:55 AM CLINIC OTHER CAMPUS REPOSITORY HNO ID: [id number] Author: Feng Zelaya (Pa) Service: Neurosurgery Author Type: Physician Car Wash Supervisor Type: Consults Filed: 10/14/2018 10:13 AM Note Text: Department of Neurosurgery Neurosurgical Service Consult Note Date of consult: 10/14/18 Critical Care Consult Time: 25 min Reason for Consult: ICH Requesting Physician: Dr. Fan Chief Complaint: s/p fall History Obtained From: RN, Chart Subjective HPI: The patient is a 58 year old female who presents s/p fall, transfer from [facility]. PMH significant for DM, PAF, anemia. Pt [...] APPENDECTOMY [facility]/13/2017 Colonoscopy mac - COLONOSCOPY 04/17/2011 X6. TA in 2008 - EGD W/O OR W/BRUSH/WASH 06/09/14 EGD - EGD W/O OR W/BRUSH/WASH 02/13/2017 EGD mac - FOOT RIGHT OP SURGERY 1992 rebuilt bottom of right foot - HEART CATHETERIZATION - LIGATE FALLOPIAN TUBE 1982 - REMOVAL OF GALLBLADDER 1977 - SCREENING COLONOSCOPY, NOT HIGH RISK PT 04/17/2011 next 04/17/16, Dr. Dimitris Carlson [place] - TOTAL ABDOM HYSTERECTOMY Hysterectomy, LEONILA - TOTAL HIP REPLACEMENT bilateral 2008 right hip, 2010 lef t hip Current [...] cancer - Diabetes Father - Heart Father NC x 2 - Hypertension Father - Diabetes Maternal Grandmother - Diabetes Maternal Grandfather - Diabetes Paternal Grandmother - Hypertension Paternal Grandmother - Diabetes Paternal Grandfather - Heart Paternal Grandfather NC Review of Systems: Review of Systems: unable to obtain Date 10/13/18 07 - 10/14/18 0659 10/14/18 07 - 10/15/18 0659 Shift 0822-1120 0955-7384 6417-4212 24 Hour Total 5279-8117 7498-2642 9904-9412 24 Hour Total I N T A K E IV 249 064 4557 534 534 I.V. 100 100 D5 NS 922 922 534 534 Shift Total 705 307 3664 534 534 O U T P U [...] drowsy but arousable, talks softly, complains of RODRIGEUZ, spont moves all extremities RCTH stable at this time No neurosurgical intervention at this time RCTH if neuro exam changes Cont to wear aspen collar at all times Cont as planned with others following My clinical findings and decision making will be reviewed with Thank you for consult Feng Zelaya PA-C CT HEAD W/O CONTRAST Observed: 10/14/2018 Status: F Source: [facility] 6:39 AM HEALTH SYSTEM REPOSITORY Performed at [facility] APPROVED BY: Maikel Prather MD EXAMINATION: [...] unchanged PROGRESS Observed: 10/14/2018 Status: COMPLETED Source: [facility] 6:21 AM [facility] OTHER CAMPUS REPOSITORY [facility] ID: [id number] Author: Cheryle Smith Service: ADT-SICU Author Type: [...] Date 10/13/18 07 - 10/14/18 0659 10/14/18 0700 - 10/15/18 0659 Shift 0622-6866 2435-0563 3793-2084 24 Hour Total 3205-4971 3242-9915 6647-3240 24 Hour Total I N T A K E IV 578 274 4244 I.V. 100 100 D5 NS 922 922 Shift Total 689 660 3639 O U T P U T Urine [...] unable to correctly name president and year, Duxbury collar was off when first entering room, Duxbury collar in place now, intact finger to [...] questions or concerns Mon-Fri 6a-5p please page [phone]. After 5pm and on Weekends and Holidays, please page [phone]. Stable repeat CT, was disoriented last night [...] AM PROGRESS Observed: 10/14/2018 Status: COMPLETED Source: [facility] 6:15 AM [facility] REPOSITORY O ID: [id number] Author: Milagro Fan Service: Trauma Author Type: [...] kg/m? O2 Therapy: Room Air IANDO: Date 10/13/18 07 - 10/14/18 0659 10/14/18 0700 - 10/15/18 0659 Shift 7692-3335 0197-9156 7463-8824 24 Hour Total 0552-9577 8623-1434 1855-9870 24 Hour Total I N T A K E IV 958 923 7000 I.V. 100 100 D5 NS 922 922 Shift Total 755 317 2459 O U T P U T Urine [...] Diagnosis Date Noted - SDH (subdural hematoma) ([facility]) 10/14/2018 - Midline shift of brain due to hematoma 10/14/2018 - Fall 10/14/2018 - TBI (traumatic brain injury) ([facility]) 10/14/2018 - ICH (intracerebral hemorrhage) ([facility]) 10/13/2018 - Type 2 diabetes mellitus without complication ([facility]) 01/08/2012 58 year old female s/p GLF with L SDH with R shift - NPO/IVF - Rpt CT Head 10/13 left SDH unchanged, posterior fissure SDH slightly worse, no shift - CT Head rpt p this am - NSx recs: keppra - C collar - Hold A/C Trauma Service Pager: For questions or concerns Mon-Fri 6a-5p please page [phone]. After 5pm and on Weekends and Holidays, please page [phone] if in ICU or [phone] if on RNF. SIGNATURE: Rand Chen MD [...] IONIZED CALCIUM Collected: 10/14/2018 Status: F Source: [facility] 3:49 AM HEALTH SYSTEM REPOSITORY TYPE CODE TESTS RESULT OUT OF REFERENCE UNITS RANGE LAB CAION(LOINC 4.43-4.93 mg/dL ) Ionized 4.76 Calcium LAB PHCAI(LOINC 7.320-7.420 ) pH 7.348 LAB CAPH(LOINC) 4.36-4.73 mg/dL Ionized 4.64 Ca,PH7.4 Performed By: #### IONCA #### [place] [address] HEMOGRAM Collected: 10/14/2018 Status: F Source: [facility] 3:49 AM HEALTH SYSTEM REPOSITORY TYPE [...] MPV 10.1 Performed By: #### CBC1 #### [place] [address] BASIC PANEL Collected: 10/14/2018 Status: F Source: [facility] 3:49 AM HEALTH SYSTEM REPOSITORY TYPE [...] Gap 10 Performed By: #### P8 #### [place] [address] MAGNESIUM BLOOD Collected: 10/14/2018 Status: F Source: [facility] 3:49 AM HEALTH SYSTEM REPOSITORY TYPE CODE TESTS RESULT OUT OF REFERENCE UNITS RANGE LAB MAG(LOINC) 1.6-2.6 mg/dL Magnesium Blood 2.2 Performed By: #### MAG #### [place] [address] PHOSPHORUS BLOOD Collected: 10/14/2018 Status: F Source: [facility] 3:49 AM HEALTH SYSTEM REPOSITORY TYPE CODE TESTS RESULT OUT OF REFERENCE UNITS RANGE LAB PHOS(LOINC 2.5-4.9 mg/dL ) Phosphorus Blood 3.9 Performed By: #### PHOS #### [place] [address] NURSING PROG Observed: 10/13/2018 Status: COMPLETED Source: [facility] 11:21 PM CLINIC OTHER CAMPUS REPOSITORY HNO ID: [id number] Author: Jazzy HenriquezRn) ARMAND Garcia Service: Nursing Author Type: Registered Nurse Type: Nursing Progress Note Filed: 10/13/2018 11:21 PM Note Text: Patient refusing to wear Duxbury collar. Dr. Hernandez notified. Will continue to monitor. CONSULT Observed: 10/13/2018 Status: COMPLETED Source: [facility] 8:32 PM CLINIC OTHER CAMPUS REPOSITORY HNO ID: [id number] Author: Yajaira Blue MD Service: General Surgery [...] APPENDECTOMY 1976 - COLONOSCOP W/ OR W/O [facility] SPEC 02/13/2017 Colonoscopy mac - COLONOSCOPY 04/17/2011 X6. TA in 2008 - EGD W/O OR W/BRUSH/WASH 06/09/14 EGD - EGD W/O OR W/BRUSH/WASH 02/13/2017 EGD mac - FOOT RIGHT OP SURGERY 1992 rebuilt bottom of right foot - HEART CATHETERIZATION - LIGATE FALLOPIAN TUBE 1982 - REMOVAL OF GALLBLADDER 1977 - SCREENING COLONOSCOPY, NOT HIGH RISK PT 04/17/2011 next 04/17/16, Dr. Dimitris Felix - TOTAL ABDOM HYSTERECTOMY Hysterectomy, LEONILA - [...] 126/63 Pulse: 69 65 67 65 Resp: 18 19 17 20 Temp: TempSrc: SpO2: 98% 97% 96% [...] 13, 2018 TIME: 8:34 PM PAGER/CONTACT #: [phone] ED NOTE Observed: 10/13/2018 Status: COMPLETED Source: [facility] 7:15 PM CLINIC OTHER CAMPUS REPOSITORY HNO ID: [id number] Author: William (Rn) ARMAND Roberts Service: Emergency Medicine Author Type: Registered Nurse Type: ED Notes Filed: 10/13/2018 7:15 PM Note Text: Patient returned to the Emergency Department. CT HEAD W/O CONTRAST Observed: 10/13/2018 Status: F Source: [facility] 7:08 PM HEALTH SYSTEM REPOSITORY Performed at [facility] APPROVED BY: Alden Cherry MD EXAMINATION: [...] ED NOTE Observed: 10/13/2018 Status: COMPLETED Source: [facility] 7:02 PM CLINIC OTHER CAMPUS REPOSITORY HNO ID: [id number] Author: William HenriquezRn) ARMAND Roberts Service: Emergency Medicine Author Type: Registered Nurse Type: ED Notes Filed: 10/13/2018 7:15 PM Note Text: Patient transported to CT with Nurse. EKG (AK,AV,EU,FV,HL,GRACY,MM,SP) Observed: Status: F Source: [facility] 10/13/2018 6:50 PM [facility] OTHER CAMPUS REPOSITORY NAME : ELLI GUERRERO PID : [id number] : 1960 Gender : Female Race : ORD : [id number] Procedure Date : Oct 13 2018 18:50 [...] ms QTC Calculation(Bezet) : 461 ms P [place] : 53 degrees R [place] : -36 degrees T [place] : -40 degrees Test Reason : Other - Specify Location : 4 : [facility] EM Overread By : MD Major Thomas Editted By : MD Major Thomas Referred By : ALLYSON IRVING Acquired by : , ED NOTE Observed: 10/13/2018 Status: COMPLETED Source: [facility] 6:43 PM [facility] REPOSITORY HNO ID: [id number] Author: William HenriquezRn) ARMAND Roberts Service: Emergency Medicine Author Type: Registered Nurse Type: ED Notes Filed: 10/13/2018 6:47 PM Note Text: Patient complains of increased RODRIGUEZ with nausea. Dr. Irving aware. CT notified that patient needs an sonja CT. ED NOTE Observed: 10/13/2018 Status: COMPLETED Source: [facility] 6:25 PM [facility] OTHER CAMPUS REPOSITORY HNO ID: [id number] Author: William HenriquezRn) ARMAND Roberts Service: Emergency Medicine Author Type: Registered Nurse Type: ED Notes Filed: 10/13/2018 6:49 PM Note Text: Straight cath urine specimen obtained and sent. URINALYSIS ROUTINE Collected: 10/13/2018 Status: F Source: [facility] 6:25 PM HEALTH SYSTEM REPOSITORY TYPE [...] Urine NEGATIVE LAB SPG(LOINC) 1.005-1.030 Specific 1.018 [place], Ur LAB PHUR(LOINC 5.0-8.0 ) pH,Urine 7.0 [...] Cast 0.0 Performed By: #### URIN2 #### [place] [address] URINE DRUG SCREEN Collected: 10/13/2018 Status: F Source: [facility] 6:25 PM HEALTH SYSTEM REPOSITORY TYPE [...] purposes only. Performed By: #### UDRG2 #### [facility] [address] [place] [address] ALLIED HEALTH Observed: 10/13/2018 Status: COMPLETED Source: [facility] 6:15 PM [facility] OTHER WITHAMS REPOSITORY HNO ID: [id number] Author: Chaplain Ceron (Chaplain) Service: Spiritual Care Author Type: Mailing Machine Operator Type: Allied Health Filed: 10/13/2018 6:20 PM Note Text: SPIRITUALCARE Spiritual Care Visit- Brief Note Name: Elli Guerrero Date: October 13, 2018 Notes: Mailing Machine Operator paged for a trauma 2. Patient had a fall earlier today and complained of head pain according to her daughter. Patient is quaker. Patient's daughter, son-in-law , and grandson were in the family room. Patient's daughter was visibly shaken. Mailing Machine Operator sat with the family and provided supportive presence. Patient's daughter appeared to calm down after a while. Mailing Machine Operator Signature: Chaplain Osmany To contact the Spiritual Care Department: Please call [phone] or Page the On-Call Mailing Machine Operator at pager [phone] Thank you for the opportunity to be of service. This is an electronically created document. IF PRINTED, PLEASE DO NOT REMOVE FROM THE CHART OR MODIFY PRINTED COPY. HISTORY PHYSICAL Observed: 10/13/2018 Status: COMPLETED Source: [facility] 6:08 PM [facility] OTHER WITHAMS REPOSITORY HNO ID: [id number] Author: Milagro Fan Service: General Surgery Author Type: Physician Type: HANDP Filed: 10/14/2018 1:19 PM Note Text: TRAUMA HANDP [facility] ARRIVAL DATE: 10/13/2018 ARRIVAL TIME: 17:20 CATEGORY: [...] APPENDECTOMY 1976 - [facility] 02/13/2017 Colonoscopy mac - COLONOSCOPY 04/17/2011 X6. TA in 2008 - EGD W/O OR W/BRUSH/WASH 06/09/14 EGD - EGD W/O OR W/BRUSH/WASH 02/13/2017 EGD mac - FOOT RIGHT OP SURGERY 1992 rebuilt bottom of right foot - HEART CATHETERIZATION - LIGATE FALLOPIAN TUBE 1982 - REMOVAL OF GALLBLADDER 1977 - SCREENING COLONOSCOPY, NOT HIGH RISK PT 04/17/2011 next 04/17/16, Dr. Dimitris Felix - TOTAL ABDOM HYSTERECTOMY Hysterectomy, LEONILA - [...] 126/63 Pulse: 69 65 67 65 Resp: 18 19 17 20 Temp: TempSrc: SpO2: 98% 97% 96% [...] 13, 2018 TIME: 6:09 PM PAGER/CONTACT #: [phone] Attending Note As above Delayed note signing [...] 1 VIEW Observed: 10/13/2018 Status: F Source: [facility] 5:53 PM HEALTH SYSTEM REPOSITORY Performed at [facility] APPROVED BY: Arvind Silva MD EXAM [...] 2 VIEWS Observed: 10/13/2018 Status: F Source: [facility] 5:48 PM HEALTH SYSTEM REPOSITORY Performed at [facility] APPROVED BY: Alden Cherry MD EXAM [...] PROV NOTE Observed: 10/13/2018 Status: COMPLETED Source: [facility] 5:40 PM CLINIC OTHER CAMPUS REPOSITORY HNO ID: [id number] Author: Allyson Irving DO Service: Emergency Medicine Author Type: Physician Type: ED Provider Notes Filed: 10/15/2018 1:02 AM Note Text: ED Provider Note Patient Name: Elli Guerrero SERVICE DATE: 10/13/18 History No chief complaint on file. 58-year-old female transferred to the emergency department from [facility] via EMS for evaluation s/p fall. Pt was seen at [facility] for evaluation of a fall. Patient slipped [...] APPENDECTOMY 1976 - COLONOSCOP W/ OR W/O [facility] SPEC 02/13/2017 Colonoscopy mac - COLONOSCOPY 04/17/2011 X6. TA in 2008 - EGD W/O OR W/BRUSH/WASH 06/09/14 EGD - EGD W/O OR W/BRUSH/WASH 02/13/2017 EGD mac - FOOT RIGHT OP SURGERY 1992 rebuilt bottom of right foot - HEART CATHETERIZATION - LIGATE FALLOPIAN TUBE 1982 - REMOVAL OF GALLBLADDER 1977 - SCREENING COLONOSCOPY, NOT HIGH RISK PT 04/17/2011 next 04/17/16, Dr. Dimitris Felix - TOTAL ABDOM HYSTERECTOMY Hysterectomy, LEONILA - TOTAL HIP REPLACEMENT bilateral 2007 right hip, 2010 lef t hip FAMILY HISTORY Problem Relation Age of Onset - Diabetes Mother - Hypertension Mother - Cancer Father lung cancer - Diabetes Father - Heart Father NC x 2 - Hypertension Father - Diabetes Maternal Grandmother - Diabetes Maternal Grandfather - Diabetes Paternal Grandmother - Hypertension Paternal Grandmother - Diabetes Paternal Grandfather - Heart Paternal Grandfather NC Social History Social History Main Topics - [...] ETHANOL BLOOD (AK,AV,EU,FV,HL,GRACY,MM,SP) CBC + AUTO DIFF (AK,AV,EU,FV,HL,GRACY,MM,SP) LIPASE BLOOD (AK,AV,EU,FV,HL,GRACY,MM,SP) PROTHROMBIN TIME / PT (AK,AV,EU,FV,HL,GRACY,MM,SP) ACTIVATED PTT (AK,AV,EU,FV,HL,GRACY,MM,SP) AMYLASE BLOOD (AK,AV,EU,FV,HL,GRACY,MM,SP) COMPREHENSIVE METABOLIC PANEL (AK,AV,EU,FV,HL,GRACY,MM,SP) ECU TROPONIN I (DC ED) MDRD GFR URINALYSIS WITH MICROSCOPIC (AK,AV,EU,FV,HL,GRACY,MM,SP) URINE DRUG SCREEN (AK,AV,EU,FV,HL,GRACY,MM,SP) TYPE + SCREEN (AK,AV,EU,FV,HL,GRACY,MM,SP) Procedures ED Course / Clinical Impression ED [...] [GG] ED Course User Index [GG] Troy (Res) DO Kathryn Clinical Impressions as of Oct 15 102 [...] or prevent deterioration of the following condition(s): 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 The patient received Consultation by Trauma service during the time that critical care was provided.I discussed the plan of care with the Resident and agree with the findings documented. Critical care time excludes separately billed procedures. DO Troy Wyatt (Res) Kathryn, DO Resident 10/14/18 0021 Allyson Irving DO 10/15/18 0102 ED NOTE Observed: 10/13/2018 Status: COMPLETED Source: [facility] 5:35 PM CLINIC OTHER CAMPUS REPOSITORY HNO ID: [id number] Author: Yuli Cheng RN Service: Emergency Medicine Author Type: Registered Nurse Type: ED Notes Filed: 10/13/2018 5:35 PM Note Text: Ccollar switched out to aspen collar. ED NOTE Observed: 10/13/2018 Status: COMPLETED Source: [facility] 5:33 PM CLINIC OTHER CAMPUS REPOSITORY HNO ID: [id number] Author: Yuli Sales) ARMAND Cheng Service: Emergency Medicine Author Type: Registered Nurse Type: ED Notes Filed: 10/13/2018 5:33 PM Note Text: CT notified no CT's at this time. ED NOTE Observed: 10/13/2018 Status: COMPLETED Source: [facility] 5:30 PM CLINIC OTHER CAMPUS REPOSITORY HNO ID: [id number] Author: Yuli Cheng RN Service: Emergency Medicine Author Type: Registered Nurse Type: ED Notes Filed: 10/13/2018 5:30 PM Note Text: OR first call complete. ED NOTE Observed: 10/13/2018 Status: COMPLETED Source: [facility] 5:30 PM CLINIC OTHER CAMPUS REPOSITORY HNO ID: [id number] Author: Yuli Cheng RN Service: Emergency Medicine Author Type: Registered Nurse Type: ED Notes Filed: 10/13/2018 5:30 PM Note Text: Blood bank notified of type and screen only. ED NOTE Observed: 10/13/2018 Status: COMPLETED Source: [facility] 5:28 PM CLINIC OTHER CAMPUS REPOSITORY HNO ID: [id number] Author: Yuli Cheng RN Service: Emergency Medicine Author Type: Registered Nurse Type: ED Notes Filed: 10/13/2018 5:58 PM Note Text: Labs were drawn and sent. CASE MANAGEM Observed: 10/13/2018 Status: COMPLETED Source: [facility] 5:28 PM CLINIC OTHER CAMPUS REPOSITORY HNO ID: [id number] Author: Eleuterio Peterson (Sw) Service: Care Management Author Type: Supervisor Modern Languages Type: Care Mgt Progress Note Filed: 10/13/2018 7:35 PM Note Text: CARE MANAGEMENT PROGRESS NOTE SERVICE DATE: 10/13/2018 SERVICE TIME: 5:28 Pm LOS: 0 days Trauma II fall The patient was transfer from [facility] by [facility]. When family arrived social work offered support and got them back when the patients RN okayed it. Social work will follow appropriately. SIGNATURE: ISABELLE Zhang PATIENT NAME: Elli Guerrero DATE: October 13, 2018 TIME: 7:32 PM PAGER/CONTACT #: [phone] HEMOGRAM/DIFF Collected: 10/13/2018 Status: F Source: [facility] 5:28 PM HEALTH SYSTEM REPOSITORY TYPE [...] 0.87 LAB MONON(LOIN 0.27-0.70 thou/cmm C) Abs. [place] 0.28 LAB EOSN(LOINC 0.00-0.31 thou/cmm ) Abs. Eosin 0.06 LAB BASON(LOIN 0.01-0.08 thou/cmm C) Abs. Baso 0.01 Performed By: #### CBCD1 #### [place] [address] ALCOHOL, SERUM Collected: 10/13/2018 Status: F Source: [address] SYSTEM REPOSITORY TYPE CODE TESTS RESULT OUT OF RANGE REFERENCE UNITS LAB ALC(LOINC) mg/dL Alcohol, < 3 Serum Performed By: #### ALC #### [place] [address] LIPASE BLOOD Collected: 10/13/2018 Status: F Source: [address] [facility] SYSTEM REPOSITORY TYPE CODE TESTS RESULT OUT OF REFERENCE UNITS RANGE LAB LIP(LOINC) 73-393 U/L Lipase Blood 156 Performed By: #### LIP #### [place] [address] AMYLASE BLOOD Collected: 10/13/2018 Status: F Source: [address] [facility] SYSTEM REPOSITORY TYPE CODE TESTS RESULT OUT OF REFERENCE UNITS RANGE LAB DIMITRI(LOINC) 25-115 U/L Amylase Blood 66 Performed By: #### DIMITRI #### [place] [address] COMPREHENSIVE PANEL Collected: 10/13/2018 Status: F Source: [address] [facility] SYSTEM REPOSITORY TYPE CODE TESTS [...] Gap 11 Performed By: #### P14 #### [place] [address] ECU TROPONIN I Collected: 10/13/2018 Status: F Source: [address] SYSTEM REPOSITORY TYPE CODE TESTS RESULT OUT OF REFERENCE UNITS RANGE LAB ERTRP(LOINC 0.015-0.045 ng/ml ) ECU Troponin I < 0.015 Performed By: #### ERTRP #### [place] [address] PROTIME Collected: 10/13/2018 Status: F Source: [address] SYSTEM REPOSITORY TYPE CODE TESTS RESULT OUT OF REFERENCE UNITS RANGE LAB PTI(LOINC) 9.7-13.0 sec Prothrombin Time 10.6 LAB INR(LOINC) 0.90-1.30 INR 1.02 Result Comment: Note: Reference Range Change Vitamin K Antagonist (VKA) Therapeutic Range: INR 2 to 3 (Target INR of 2.5) Note: For patients treated with VKA drugs, such as warfarin, the [employer] 2012 Guideline recommends [...] GH, et al. Chest 2012; 141:7S-47S Nelsy RA, et al. [facility] 2017; 70: 252-289 Performed By: #### PT #### [facility] [address] [place] [address] ACTIVATED PTT Collected: 10/13/2018 Status: F Source: [facility] 5:28 PM HEALTH SYSTEM REPOSITORY TYPE [...] laboratory APTT reagent in use throughout the [facility]. Performed By: #### APTT #### [place] [address] TYPE AND SCREEN Collected: 10/13/2018 Status: F Source: [facility] 5:28 PM HEALTH SYSTEM REPOSITORY TYPE CODE TESTS RESULT OUT OF REFERENCE UNITS RANGE LAB ABO(LOINC) O ABO Group LAB CUTTER DOWN(LOINC ) RH Type Positive LAB ABSCR(LOIN C) Antibody NEGATIVE Screen LAB BBCMT(LOIN C) Comment See Below Result Comment: Screen &/or Xmatch expires in 3 days at 12 midnight. Redraw patient at that time. Performed By: #### T&S #### [place] [address] ED NOTE Observed: 10/13/2018 Status: COMPLETED Source: [facility] 5:27 PM CLINIC OTHER CAMPUS REPOSITORY HNO ID: [id number] Author: Yuli (Rn) ARMAND Cheng Service: Emergency Medicine Author Type: Registered Nurse Type: ED Notes Filed: 10/13/2018 5:28 PM Note Text: Ccollar applied. CT CERVICAL W/O Observed: 10/13/2018 Status: F Source: [place] CONTRAST 3:31 PM [place] [address] Patient: ELLI GUERRERO Phone#: : 1960 Age: 58 Gender: F Pt. Type: ER Account: [id number] Location: [facility] Ordering: DR. FCO DE LEÓN Exam Date: 10/13/2018/15:20 Family Phys: YANDEL BUSH Charge Code: 904977 Physician: [place] Order #: [id number] DLP Dose#: 15.00 mGy PROCEDURE: CT CERVICAL [...] 58 Gender: F Pt. Type: ER Account: [id number] Location: 052 Ordering: DR. FCO DE LEÓN Exam Date: 10/13/2018/15:20 Family Phys: YANDEL FLORESO Charge Code: [id number] Physician: [place] Order #: [id number] DLP Dose#: 15.00 mGy 1. Multilevel degenerative change is present with hypertrophy of the articular facets most marked at the C2-C5 levels.. 2. There is no evidence of fracture or subluxation. Dictated by: Carmen Correa MD on 10/13/2018 at 15:41 Approved by: Carmen Correa MD on 10/13/2018 at 15:41 KNEE COMPLETE LT MIN Observed: 10/13/2018 Status: F Source: [facility] 4 VIEWS 3:30 PM [place] [address] Patient: ELLI GUERRERO Phone#: : 1960 Age: 58 Gender: F Pt. Type: ER Account: [id number] Location: 052 Ordering: DR. FCO DE LEÓN Exam Date: 10/13/2018/15:17 Family Phys: YANDEL FLORESO Charge Code: [id number] Physician: [place] Order #: [id number] DLP Dose#: PROCEDURE: X-RAY KNEE LT COMPLETE [...] Status: F Source: [place] 3:29 PM [place] [address] Patient: ELLI GUERRERO Phone#: : 1960 Age: 58 Gender: F Pt. Type: ER Account: [id number] Location: 052 Ordering: DR. FCO DE LEÓN Exam Date: 10/13/2018/15:20 Family Phys: YANDEL BUSH Charge Code: 790621 Physician: [place] Order #: [id number] DLP Dose#: 52.30 mGy PROCEDURE: CT BRAIN [...] 58 Gender: F Pt. Type: ER Account: [id number] Location: 052 Ordering: DR. FCO DE LEÓN Exam Date: 10/13/2018/15:20 Family Phys: YANDEL BUSH Charge Code: 847281 Physician: [place] Order #: [id number] DLP Dose#: 52.30 mGy 2. There is a 6-7 mm midline shift to the right. Dictated by: Carmen Correa MD on 10/13/2018 at 15:38 Approved by: Carmen Correa MD on 10/13/2018 at 15:38 EMERGENCY REPORT Observed: 10/13/2018 Status: F [facility] EMERGENCY ROOM REPORT NAME ACCOUNT SEX AGE ADMIT DISCHARGE PT MED. RECORD# NUMBER DATE DATE TYPE CHRISTI, [id number] F 58 10/13/18 3 ELLI [place] [address] ROOM: ER DATE OF : 1960 DICTATING [...] the past. PAST MEDICAL HISTORY: Bipolar disorder, xzy-pbmzbfe-hchqlqaom diabetes, high blood pressure, and lupus. PAST [...] AND TREATMENT: I immediately contacted neurosurgery at [facility], accepting physician is Dr. Irving, and she was accepted at 1543 hours. DIAGNOSIS: Acute epidural/subdural bleed with midline shift status post fall. PLAN/DISPOSITION: We have contacted 2 [employer] helicopters, neither is flying, so we are making arrangements for stat transport ground to [facility]. The patient is awake, alert, and as long as she does not move her head her nausea is controlled. She has a stable blood pressure, does not require intubation at this moment, and is going to be transferred in serious condition. Dictated By: Fco De León DO 10/13/18 15:57 JOB #: [id number] Transcribed By: am 10/13/18 16:27 Electronically signed by: E-Sign: FCO DE LEÓN MD 10/14/18 12:00 Page 2 of 2 ELLI GUERRERO Emergency Room Report Observed: 10/13/2018 Status: F Source: [facility] MRSA SCREEN 3:49 AM [facility]ALTH SYSTEM REPOSITORY Test performed at [facility] No MRSA detected. Performed By: #### MRSA #### [facility] [address] [place] [address] PLATELET COUNT Collected: 10/09/2018 Status: F Source: [facility] 4:52 PM [facility] REPOSITORY TYPE CODE TESTS RESULT OUT OF REFERENCE UNITS RANGE LAB PLTCT 150-400 k/uL Low Platelet Count 125 Performed By: #### PLTCT, PTHI, ICA #### [facility] [address], [place] [address] PTH, INTACT Collected: 10/09/2018 Status: F Source: [facility] 4:52 PM [facility] REPOSITORY TYPE CODE TESTS RESULT OUT OF REFERENCE UNITS RANGE LAB PTH 15-65 pg/mL PTH, Intact 53 Performed By: #### PLTCT, PTHI, ICA #### [facility] [address] [place], [place] [address] CALCIUM, IONIZED Collected: 10/09/2018 Status: F Source: [place] 4:52 PM [facility] REPOSITORY TYPE CODE TESTS RESULT OUT OF REFERENCE UNITS RANGE LAB ICAL 1.08-1.30 mmol/L Calcium, High Ionized 1.34 LAB NCA 1.08-1.30 mmol/L Calcium, High Normalized 1.32 Performed By: #### PLTCT, PTHI, ICA #### [facility] [address], [place] [id number] PROGRESS Observed: 10/09/2018 Status: COMPLETED Source: [place] 4:10 PM [facility] REPOSITORY HNO ID: [id number] Author: Yandel Bush Service: (none) Author Type: [...] Hematology:labs are stable. GASTROENTEROLOGY:still seeing gi in [place]. They are thinking she could have autoimmune [...] Abs Lymph 1.00 - 4.00 k/uL 1.54 Medina% % 5.4 Abs Medina <0.87 k/uL 0.37 Eosin% % 2.3 Abs [...] APPENDECTOMY 1976 - COLONOSCOP W/ OR W/O [facility] SPEC 02/13/2017 Colonoscopy mac - COLONOSCOPY 04/17/2011 X6. TA in 2008 - EGD W/O OR W/BRUSH/WASH 06/09/14 EGD - EGD W/O OR W/BRUSH/WASH 02/13/2017 EGD mac - FOOT RIGHT OP SURGERY 1992 rebuilt bottom of right foot - HEART CATHETERIZATION - LIGATE FALLOPIAN TUBE 1982 - REMOVAL OF GALLBLADDER 1977 - SCREENING COLONOSCOPY, NOT HIGH RISK PT 04/17/2011 next 04/17/16, Dr. Dimitris Felix - TOTAL ABDOM HYSTERECTOMY Hysterectomy, LEONILA - TOTAL HIP REPLACEMENT bilateral 2008 right hip, 2011 lef t hip FAMILY HISTORY Problem Relation Age of Onset - Diabetes Mother - Hypertension Mother - Cancer Father lung cancer - Diabetes Father - Heart Father NC x 2 - Hypertension Father - Diabetes Maternal Grandmother - Diabetes Maternal Grandfather - Diabetes Paternal Grandmother - Hypertension Paternal Grandmother - Diabetes Paternal Grandfather - Heart Paternal Grandfather NC Social History Marital status: Spouse name: Years [...] ICD10: K76.0 - see gi. 4. Thrombocytopenia ([facility]) - ICD9: 287.5, ICD10: D69.6 - call if any issues. - PLTCT (PLATELET COUNT) 5. Hypercalcemia - ICD9: 275.42, ICD10: E83.52 - PTH INTACT BLD - CALCIUM IONIZED B 6. Paroxysmal atrial fibrillation ([facility]) - ICD9: 427.31, ICD10: I48.0 7. Essential [...] 10. Bipolar affective disorder, remission status unspecified ([facility]) - ICD9: 296.80, ICD10: F31.9 - see psych 11. Morbid obesity ([facility]) - ICD9: 278.01, ICD10: E66.01 12. Positive MATY (antinuclear antibody) - ICD9: 795.79, ICD10: R76.8 - continue to see rheum. Yandel Bush MD RTO in three months and prn. PROGRESS Observed: 10/09/2018 Status: COMPLETED Source: [facility] 3:59 PM [facility] REPOSITORY HNO ID: [id number] Author: Joanne Andrade Ma Service: (none) Author Type: (none) Type: Progress Notes Filed: 10/09/2018 5:18 PM Note Text: 58 year old female here for INACTIVATED INFLUENZA VACCINE. 8651-8502 Season Patient is identified by name and date of : Yes [] CONTRAINDICATIONS color enhanced section Age less than 6 months? No Allergy to eggs, chicken, chicken feathers, or chicken dander? No Allergy to thimerosal (a preservative) or formaldehyde, gelatin? No History of severe reaction to any vaccine component or a previous dose of influenza vaccination? 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 Yes See immunization activity in [facility] for details of immunizations adminstered today. Patient age: [age] year old For The 5905-8169 Flu Season 6-35 months old: Fluzone 0.25 [...] time. CNOV Observed: 10/09/2018 Status: COMPLETED Source: [place]ISHA 3:00 PM [facility] REPOSITORY [facility] ELLI GUERRERO ([id number]) 1960 F Date Time Provider Department 10/09/18 3:00 PM [facility] During your visit today, we recorded the following information about you: Temperature Pulse Respiration Blood pressure 98.9 degrees 68/minute 20/minute 120/68 Weight 116.1 kg Joanne Andrade Ma 10/09/2018 5:18 PM Signed 58 year old female here for INACTIVATED INFLUENZA VACCINE. 6660-3755 Season Patient is identified by name and date of : Yes [] CONTRAINDICATIONS color enhanced section Age less than 6 months? No Allergy to eggs, chicken, chicken feathers, or chicken dander? No Allergy to thimerosal (a preservative) or formaldehyde, gelatin? No History of severe reaction to any vaccine component or a previous dose of influenza vaccination? 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 Yes See immunization activity in [facility] for details of immunizations adminstered today. Patient age: [age] year old For The 9136-2745 Flu Season 6-35 months old: Fluzone 0.25 [...] Hematology:labs are stable. GASTROENTEROLOGY:still seeing gi in [place]. They are thinking she could have autoimmune [...] Abs Lymph 1.00 - 4.00 k/uL 1.54 Medina% % 5.4 Abs Medina <0.87 k/uL 0.37 Eosin% % 2.3 Abs [...] APPENDECTOMY 1976 - COLONOSCOP W/ OR W/O [facility] SPEC 02/13/2017 Colonoscopy mac - COLONOSCOPY 04/17/2011 X6. TA in 2008 - EGD W/O OR W/BRUSH/WASH 06/09/14 EGD - EGD W/O OR W/BRUSH/WASH 02/13/2017 EGD mac - FOOT RIGHT OP SURGERY 1992 rebuilt bottom of right foot - HEART CATHETERIZATION - LIGATE FALLOPIAN TUBE 1982 - REMOVAL OF GALLBLADDER 1977 - SCREENING COLONOSCOPY, NOT HIGH RISK PT 04/17/2011 next 04/17/16, Dr. Dimitris Carlson [place] - TOTAL ABDOM HYSTERECTOMY Hysterectomy, LEONILA - TOTAL HIP REPLACEMENT bilateral 2007 right hip, 2010 lef t hip FAMILY HISTORY Problem Relation Age of Onset - Diabetes Mother - Hypertension Mother - Cancer Father lung cancer - Diabetes Father - Heart Father NC x 2 - Hypertension Father - Diabetes Maternal Grandmother - Diabetes Maternal Grandfather - Diabetes Paternal Grandmother - Hypertension Paternal Grandmother - Diabetes Paternal Grandfather - Heart Paternal Grandfather NC Social History Marital status: Spouse name: Years [...] months and prn. Referring Provider: YANDEL BUSH [[id number]] Allergies As of Date: 10/09/2018 (No Known [...] QUADRIVALENT AGE 3 YRS PLUS + IM [[id number]] Order #: [id number] PLTCT (PLATELET COUNT) [SQPLTCT] Order #: [id number] FUTURE PTH INTACT BLD [SQPTHI] Order #: [id number] FUTURE CALCIUM IONIZED B [SQICA] Order #: [id number] FUTURE HGB A1C [IQSGH7K] Order #: [id number] FUTURE Prescriptions as of 10/09/2018 Sig: HYDROCHLOROTHIAZIDE [...] Disposition History Recorded Letter Text . [facility] AUTHORIZATION FOR THE RELEASE OF MEDICAL INFORMATION FROM OTHER HEALTHCARE FACILITIES [facility] [address] [place] [address] Name: Elli Guerrero Date of : 1960 [address] [facility] [address] (home) Reason for Disclosure: Continuity of Care. Release Information From: Name of Provider/Facility: Dr. [address]: City: __[place]__State:_[place]_ Zip: Fax: __[phone]__ Phone:__[phone]_ Release Information To: Office Receiving: Yandel Bush MD PLEASE FAX TO: [phone] I hereby authorize to release the health [...] legal papers verifying authority (e.g. Power of Tile Erector or Certificate) MUST accompany the authorization when presented. Exception: parent if signing for patient under age 18. *Psychotherapy Notes defined as notes that document private, joint, group or family counseling sessions that are from the rest of a patient?s medical record. Encounter Status:Closed by YANDEL BUSH MD on 10/09/18 CBC AND DIFFERENTIAL Collected: 10/06/2018 Status: F Source: [facility] 1:35 PM [facility] REPOSITORY TYPE CODE [...] k/uL Abs Lymph 1.54 LAB AMONO % Medina% 5.4 LAB AAMONO <0.87 k/uL Abs Medina 0.37 LAB AEOS % Eosin% 2.3 LAB AAEOS <0.46 k/uL Abs Eosin 0.16 LAB ABASO % Baso% 0.3 LAB AABASO <0.11 k/uL Abs Baso <0.03 LAB AUNRBC 0 /100 WBC NRBCs 0.0 LAB ABNRBC <0.01 k/uL Absolute nRBC <0.01 LAB DTYP DTYPE Auto Diff Performed By: #### CBCDIF, CMP, IRON, HBA1C #### [facility] [address] [place], [place] [address] COMP METABOLIC PANEL Collected: 10/06/2018 Status: F Source: [place] 1:35 PM [facility] REPOSITORY TYPE CODE [...] mg/dL Glucose High 124 Result Comment: The [place] Diabetes Association (ADA) provides guidance for cutoff [...] Standards of Medical Care in Diabetes 2016, [place] [employer]. Diabetes Care. 2016.39(Suppl 1). LAB [...] By: #### CBCDIF, CMP, IRON, HBA1C #### [facility] [address] [place], [place] [address] IRON AND TIBC Collected: 10/06/2018 Status: F Source: [facility] 1:35 PM [facility] REPOSITORY TYPE CODE TESTS RESULT OUT OF REFERENCE UNITS RANGE LAB IRN 41-186 ug/dL Iron 110 LAB TIBC 232-386 ug/dL TIBC High 405 LAB SAT 15-57 % Transferrin Saturatn 27 Performed By: #### CBCDIF, CMP, IRON, HBA1C #### [facility] [employer] [address], [place] [address] HEMOGLOBIN A1C Collected: 10/06/2018 Status: F Source: [facility] 1:35 PM [facility] REPOSITORY TYPE CODE TESTS RESULT OUT OF REFERENCE UNITS RANGE LAB HGBA1C 4.3-5.6 % High Hemoglobin A1c 7.0 LAB HBA0 mg/dL Est. Average Glucose 154 Result Comment: eAG: (Estimated average glucose) is a calculated value from HgbA1c and is group sales representative of the average blood glucose level in the last 2-3 month period. Performed By: #### CBCDIF, CMP, IRON, HBA1C #### [facility] [employer] [address], [place] [address] SMOOTH MUSCLE Collected: 09/05/2018 Status: F Source: [place] ANTIBODY IGG [QUEST] 11:30 AM [facility] REPOSITORY TYPE CODE TESTS RESULT OUT OF REFERENCE UNITS RANGE LAB SMOOTH MUSCLE ANTIBODY IgG [QUEST](LOINC) SMOOTH MUSCLE ANTIBODY IgG [QUEST] Result Comment: _ANTI SMOOTH MUSCLE ABS_ ACTIN ANTIBODY (IGG) Reported: 09/08/2018 15:41 Status=F TEST RESULT FLAG RANGE UNITS ACTIN ANTIBODY (IGG) <20 <20 U 09/08/18.1553.rfl.COMPLETE.AMRR .93535-4 Reference Range: <20 U: Negative >or=20 U: [...] with AIH type 1. Test Performed by [employer], [employer] [facility], [address] [place] [address] Llyod Abdi M.D., Ph.D., Director of Laboratories , [facility] [id number] Performed By: #### [id number] #### [facility],[address] [place] [address] CBC W/DIFF, AUTOMATED Collected: 08/20/2018 Status: F Source: [place] 10:35 AM [facility] REPOSITORY TYPE CODE TESTS RESULT OUT OF [...] Lymph 1.31 Performed By: #### L100.0100 #### [facility] [address] [place], [address] COMPREHENSIVE METABOLIC Collected: 08/20/2018 Status: F Source: [facility] 10:35 AM [facility] REPOSITORY TYPE CODE TESTS RESULT OUT OF [...] GAP 8 Performed By: #### L500.4050 #### [facility] [address] [place] [address], [address] PROTHROMBIN TIME AND Collected: 08/08/2018 Status: F Source: [facility] INR 11:14 AM [facility] REPOSITORY TYPE CODE TESTS RESULT OUT [...] 3.5 MECHANICAL HEART VALVES Performed By: #### [id number] #### [facility],[address] [facility] [address] HEPATIC FUNCTION Collected: 08/08/2018 Status: F Source: [place] PANEL 11:14 AM [facility] REPOSITORY TYPE CODE TESTS RESULT OUT [...] g/dl TOTAL PROTEIN 7.9 Performed By: #### [id number] #### [facility],[address] [place] [address] BMP WITH EGFR Collected: 08/08/2018 Status: F Source: [facility] 11:14 [facility] REPOSITORY TYPE CODE TESTS RESULT OUT OF [...] OF AGE AND OLDER. Performed By: #### [id number] #### [facility],[address] [place], [place] [id number] HEP B CORE AB IGM Collected: 08/08/2018 Status: F Source: [facility] 11:14 [facility] REPOSITORY TYPE CODE TESTS RESULT OUT OF RANGE REFERENCE UNITS LAB HEP B CORE AB IGM(LOINC) HEP B CORE AB IGM Result Comment: _HEP B CORE AB IGM_ HEPATITIS B CORE AB (IGM) Reported: 08/10/2018 20:23 Status=F TEST RESULT FLAG RANGE UNITS HEPATITIS B CORE AB (IGM) Nonreactive Nonreactive 08/10/18.2035.Shayy.AMRR .53735-9 Test Performed by [facility], [employer] [facility], [address] [place] [address] Lloyd Abdi M.D., Ph.D., Director of Laboratories , [facility] [id number] Performed By: #### [id number] #### [facility],[address] [place] [address] HEP C VIRUS AB WITH Collected: 08/08/2018 Status: F Source: [facility] REFLEX [QUEST] 11:14 AM [facility] REPOSITORY TYPE CODE TESTS RESULT OUT OF REFERENCE UNITS RANGE LAB HEP C VIRUS AB WITH REFLEX [QUEST](LOINC HEP C ) VIRUS AB WITH REFLEX [QUEST] Result Comment: _HEP C VIRUS AB_ HEPATITIS C AB W/REFL HCV RNA, QN REAL-TIME PCR Reported: 08/10/2018 20:24 Status=F TEST RESULT FLAG RANGE UNITS HEPATITIS C ANTIBODY Nonreactive Nonreactive 08/10/18.rfl.COMPLETE.AMRR .77007-8 SIGNAL TO CUTOFF 0.06 <1.00 ratio 08/10/18.rfl.COMPLETE.AMRR .92439-8 HCV antibody was Nonreactive. There is no laboratory evidence of HCV infection. In most cases, no further action is required. However, if recent HCV exposure is suspected, a test for HCV RNA (test code 72700) is suggested. For additional information please refer to http://InHomeVest.[employer]/faq/MTD09n0 (This link is being provided for informational/ educational purposes only.) ADDITIONAL TESTING Not indicated 08/10/18.rfl.COMPLETE.AMRR Test Performed by [employer], [employer] [facility], [address] [place] [address] Lloyd Abdi M.D., Ph.D., Director of Laboratories , [facility] [id number] 08/11/18.812.XMT.SENT REF 08/11/18.XMT.SENT REF Performed By: #### [id number] #### [facility],[address] [place] [address] SMOOTH MUSCLE Collected: 08/08/2018 Status: F Source: [facility] ANTIBODY IGG [QUEST] 11:14 AM [facility] REPOSITORY TYPE CODE TESTS RESULT OUT OF REFERENCE UNITS RANGE LAB SMOOTH MUSCLE ANTIBODY IgG [QUEST](LOINC) SMOOTH MUSCLE ANTIBODY IgG [QUEST] Result Comment: _ANTI SMOOTH MUSCLE ABS_ ACTIN ANTIBODY (IGG) Reported: 08/11/2018 18:52 Status=F TEST RESULT FLAG RANGE UNITS ACTIN ANTIBODY (IGG) 23 H <20 U 08/11/18.1904.[facility].COMPLETE.AMRR .79698-8 Reference Range: <20 U: Negative >or=20 U: [...] with AIH type 1. Test Performed by [facility], [employer] [facility], [address] [place] [address] Lloyd Abdi M.D., Ph.D., Director of Laboratories , [facility] [id number] Performed By: #### [id number] #### [facility],[address] [place] [address] CBC Collected: 07/24/2018 Status: F Source: [facility] 9:18 AM [facility] REPOSITORY TYPE CODE TESTS RESULT OUT [...] 7.10 x10EE3/U L Neut # 3.30 LAB Medina #(LOINC) 0.20 - 1.00 x10EE3/U L Medina # 0.20 LAB EO #(LOINC) 0.00 - 0.50 x10EE3/U L EO # 0.10 LAB Baso #(LOINC) 0.00 - 0.10 x10EE3/U L Baso # 0.00 LAB MANUAL DIFF(LOINC) MANUAL DIFF N/A LAB MORPHOLOGY(LOINC ) MORPHOLOGY N/A Result Comment: {CD] Performed By: #### [id number] #### [place] [id number] FERRITIN Collected: 07/24/2018 Status: F Source: [place] 9:18 AM [facility] REPOSITORY TYPE CODE TESTS RESULT OUT OF REFERENCE UNITS RANGE LAB FERRITIN(LO 10 - 291 ng/mL INC) FERRITIN 52 Performed By: #### [id number] #### [place] [address] IRON AND UIBC Collected: 07/24/2018 Status: F Source: [place] 9:18 [facility] REPOSITORY TYPE CODE TESTS RESULT OUT OF RANGE REFERENCE UNITS LAB IRON(LOINC) 50 - 170 ug/dl IRON 92 LAB UIBC(LOINC) 155 - 355 ug/dL UIBC 348 LAB TIBC(LOINC) 250 - 450 ug/dl TIBC 440 LAB Sat%(LOINC) 20 - 50 % Sat% 21 Performed By: #### [id number] #### [facility],[address] [place], [place] [id number] CERULOPLASMIN [QUEST] Collected: 07/24/2018 Status: F Source: [place] 9:18 AM [facility] REPOSITORY TYPE CODE TESTS RESULT OUT OF REFERENCE UNITS RANGE LAB CERULOPLASMIN [QUEST](LOINC) CERULOPLASMIN [QUEST] Result Comment: _CERULOPLASMIN_ CERULOPLASMIN Reported: 07/26/2018 15:55 Status=F TEST RESULT FLAG RANGE UNITS CERULOPLASMIN 32 18-53 mg/dL 07/26/18.1608.rfl.COMPLETE.AMRR .2064-4 Test Performed by [employer], [employer] [facility] [facility], [address] [place] [address] Lloyd Abdi M.D., Ph.D., Director of Laboratories , [facility] [id number] Performed By: #### [id number] #### [facility],[address] [place], [place] [id number] HEP B SURF AB QUANT Collected: 07/24/2018 Status: F Source: [facility] [QUEST] 9:18 AM [facility] REPOSITORY TYPE CODE TESTS RESULT OUT [...] more information on this test, go to: http://education.[employer]/faq/POQ797 Test Performed by [facility], [employer] [facility], [address] [place] [address] Lloyd Abdi M.D., Ph.D., Director of Laboratories , [facility] [id number] Performed By: #### [id number] #### [facility],[address] [place] [address] HEP A AB TOTAL Collected: 07/24/2018 Status: F Source: [facility] 9:18 AM [facility] REPOSITORY TYPE CODE TESTS RESULT OUT OF RANGE REFERENCE UNITS LAB HEP A AB TOTAL(LOINC ) HEP A AB TOTAL Result Comment: _HEP A AB TOTAL_ HEPATITIS A AB, TOTAL Reported: 07/26/2018 20:06 Status=F TEST RESULT FLAG RANGE UNITS HEPATITIS A AB, TOTAL Nonreactive Nonreactive 07/26/18.2017.rflLynneCOMPLETE.AMRR .41066-2 Test Performed by [employer], [employer] [facility] [facility], [address] [place] [address] Lloyd Abdi M.D., Ph.D., Director of [employer] , [facility] [id number] Performed By: #### [id number] #### [facility],[address] [place], [place] [id number] MITOCHONDRIAL AB W/ Collected: 07/24/2018 Status: F Source: [facility] REFLEX TITER [QUEST] 9:18 AM [facility] REPOSITORY TYPE CODE TESTS RESULT OUT OF REFERENCE UNITS RANGE LAB MITOCHONDRIAL AB W/ REFLEX TITER [Quest](LOINC) MITOCHONDRIAL AB W/ REFLEX TITER [Quest] Result Comment: _ANTI MITOCHONDRIAL ABs_ MITOCHONDRIAL ANTIBODY W/REFLEX TO TITER Reported: 07/27/2018 21:07 Status=F TEST RESULT FLAG RANGE UNITS MITOCHONDRIAL ANTIBODY Negative Negative 07/27/18.2118.rfl.COMPLETE.AMRR .22208-6 SCREEN Test Performed by [employer], [facility], [address] [place] [address] Lloyd Abdi M.D., Ph.D., Director of Laboratories , [facility] [id number] Performed By: #### [id number] #### [facility],[address] [place] [address] ANTI NUCLEAR AB MATY Collected: 07/24/2018 Status: F Source: [facility] W/ REFLEX TITER [QU] 9:18 AM [facility] REPOSITORY TYPE CODE TESTS RESULT OUT OF REFERENCE UNITS RANGE LAB ANTI NUCLEAR AB MATY W/ REFLEX TITER [QU](LOINC) ANTI NUCLEAR AB MATY W/ REFLEX TITER [QU] Result Comment: _ANTI NUCLEAR AB MATY W/ REFLEX TITER_ MATY SCREEN, IFA Positive A Negative 07/29/18.rfl.COMPLETE.AMRR .04023-7 MATY IFA is a first line screen for detecting the presence of up to approximately 150 autoantibodies in various autoimmune diseases. A positive MATY IFA result is suggestive of autoimmune disease and reflexes to titer and pattern. Further laboratory testing may be considered if clinically indicated. ADDITIONAL TESTING Has been added 07/29/18.rfl.COMPLETE.AMRR Test Performed by [employer], [facility] [place], [address] [place] [address] Lloyd Abdi M.D., Ph.D., Director of Laboratories , CLIA [id number] MATY, TITER AND PATTERN Reported: 07/29/2018 22:37 Status=F TEST RESULT FLAG RANGE UNITS MATY TITER 1:40 A Negative 07/29/18.rfl.COMPLETE.AMRR .5048-4 A low level MATY titer may be present in pre-clinical autoimmune diseases and normal individuals. Reference Range: <1:40 Negative 1:40-1:80 Low Antibody Level >1:80 Elevated Antibody Level Visit Physician FAQs for interpretation of all antibodies in the [place], prevalence, and association with diseases at http://education.[employer]/faq/YRL887 Test Performed by [employer], [employer] [facility], [address] [place] [address] Lloyd Abdi M.D., Ph.D., Director of Laboratories , [facility] [id number] MATY PATTERN Homogeneous 07/29/18.rfl.COMPLETE.AMRR .39741-4 Homogeneous pattern is associated with systemic lupus erythematosus (SLE), drug-induced lupus and juvenile idiopathic arthritis. Performed By: #### [id number] #### [facility],[address] [place] [address] ALPHA-1 ANTITRYPSIN Collected: 07/24/2018 Status: F Source: [facility] TOTAL [QUEST] 9:18 AM [facility] REPOSITORY TYPE CODE TESTS RESULT OUT OF REFERENCE UNITS RANGE LAB ALPHA-1 ANTITRYPSIN TOTAL ALPHA-1 [QUEST](LOINC) ANTITRYPSIN TOTAL [QUEST] Result Comment: _[id number]-3-[id number]_ HBBZU-2-TZGMMLLIQNV QUANTITATION Reported: 07/30/2018 21:33 Status=F TEST RESULT FLAG RANGE UNITS JTAMD-3-EHMFHENYSFL QN 155 83-199 mg/dL 07/30/18.2144.rfl.COMPLETE.AMRR .1825-9 Test Performed by [employer], [employer] [facility], [address] [place] [address] Lloyd Abdi M.D., Ph.D., Director of Laboratories , [facility] [id number] Performed By: #### [id number] #### [address] ABD COMPLETE Observed: 07/24/2018 Status: F Source: [facility] 9:[address] [place] [address] Patient: ELLI GUERRERO Phone#: : 1960 Age: 57 Gender: F Pt. Type: Out Account: [id number] Location: 052 Ordering: BETH BYRD Exam Date: 07/24/2018/8:12 Family Phys: YANDEL BUSH Charge Code: 728559 Physician: [place] Order #: [id number] DLP Dose#: PROCEDURE: ABDOMEN COMPLETE ULTRASOUND COMPARISON: [facility], MR, ABDOMEN W W/O CON, 10/09/2017, 9:53. 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 She may be switching gi physicians. PSYCH:still [...] Abs Lymph 1.00 - 4.00 k/uL 1.55 Medina% % 4.7 Abs [place] <0.87 k/uL 0.32 Eosin% % 2.2 Abs [...] RISK PT 04/17/2011 next 04/17/16, Dr. Dimitris Carlson Denton - TOTAL ABDOM HYSTERECTOMY Hysterectomy, LEONILA - TOTAL HIP REPLACEMENT bilateral 2007 right hip, 2010 lef t hip FAMILY HISTORY Problem Relation Age of Onset - Diabetes Mother - Hypertension Mother - Cancer Father lung cancer - Diabetes Father - Heart Father NC x 2 - Hypertension Father - Diabetes Maternal Grandmother - Diabetes Maternal Grandfather - Diabetes Paternal Grandmother - Hypertension Paternal Grandmother - Diabetes Paternal Grandfather - Heart Paternal Grandfather NC Social History Marital status: Spouse name: Years [...] Obesity, Class III, BMI 40-49.9 (morbid obesity) (HCC) - ICD9: 278.01, ICD10: E66.01 - continue [...] insulin (HCC) - ICD9: 250.00, ICD10: E11.9 improved control - Continue current medications - HGB A1C - COMP METABOLIC PANEL 8. Bipolar affective disorder, remission status unspecified (HCC) - ICD9: 296.80, ICD10: F31.9 - continue to see psych. 9. Essential hypertension - ICD9: 401.9, ICD10: I10 - good control - Continue current medication(s) - Goal of BP <140/90 10. Paroxysmal atrial fibrillation (HCC) - ICD9: 427.31, ICD10: I48.0 - per cardio Yandel Bush MD RTO in three monthss and prn. CNOV Observed: 07/08/2018 Status: COMPLETED Source: [place] 3:00 PM [facility] REPOSITORY [facility] ELL[facility] GUERR[facility] ([id number]) 1960 F Date Time Provider Department 07/08/18 3:00 PM [facility] During your visit today, we recorded the [...] she cancelled her last appt with her grants and contracts assistant. She may be switching gi physicians. PSYCH:still [...] Abs Lymph 1.00 - 4.00 k/uL 1.55 [place]% % 4.7 Abs [place] <0.87 k/uL 0.32 Eosin% % 2.2 Abs [...] APPENDECTOMY 1976 - COLONOSCOP W/ OR W/O [facility] SPEC 02/13/2017 Colonoscopy mac - COLONOSCOPY 04/17/2011 X6. TA in 2008 - EGD W/O OR W/BRUSH/WASH 06/09/14 EGD - EGD W/O OR W/BRUSH/WASH 02/13/2017 EGD mac - FOOT RIGHT OP SURGERY 1992 rebuilt bottom of right foot - HEART CATHETERIZATION - LIGATE FALLOPIAN TUBE 1982 - REMOVAL OF GALLBLADDER 1977 - SCREENING COLONOSCOPY, NOT HIGH RISK PT 04/17/2011 next 04/17/16, Dr. Dimitris Carlson Denton - TOTAL ABDOM HYSTERECTOMY Hysterectomy, LEONILA - TOTAL HIP REPLACEMENT bilateral 2007 right hip, 2010 lef t hip FAMILY HISTORY Problem Relation Age of Onset - Diabetes Mother - Hypertension Mother - Cancer Father lung cancer - Diabetes Father - Heart Father NC x 2 - Hypertension Father - Diabetes Maternal Grandmother - Diabetes Maternal Grandfather - Diabetes Paternal Grandmother - Hypertension Paternal Grandmother - Diabetes Paternal Grandfather - Heart Paternal Grandfather NC Social History Marital status: Spouse name: Years [...] Obesity, Class III, BMI 40-49.9 (morbid obesity) (HCC) - ICD9: 278.01, ICD10: E66.01 - continue [...] insulin (HCC) - ICD9: 250.00, ICD10: E11.9 improved control - Continue current medications - HGB A1C - COMP METABOLIC PANEL 8. Bipolar affective disorder, remission status unspecified (HCC) - ICD9: 296.80, ICD10: F31.9 - continue to see psych. 9. Essential hypertension - ICD9: 401.9, ICD10: I10 - good control - Continue current medication(s) - Goal of BP <140/90 10. Paroxysmal atrial fibrillation (HCC) - ICD9: 427.31, ICD10: I48.0 - per cardio Yandel Bush MD RTO in three monthss and prn. Referring Provider: YANDEL BUSH [[id number]] Allergies As of Date: 07/08/2018 (No Known Allergies) Date Reviewed: 07/08/2018 Reviewed by: Karen Appiah - Fully Assessed Reason for Visit: Recheck [92] Primary Visit Diagnosis:Anemia, unspecified type [D64.9] Other Visit Diagnoses:Obesity, Class III, BMI 40-49.9 (morbid obesity) (HCC) [E66.01] Positive MATY (antinuclear antibody) [R76.8] Gastroesophageal reflux disease, esophagitis presence not specified [K21.9] Obstructive sleep apnea (adult) (pediatric) [G47.33] Iron deficiency anemia, unspecified iron deficiency anemia type [D50.9] Type 2 diabetes mellitus without complication, without long-term current use of insulin (HCC) [E11.9] Bipolar affective disorder, remission status unspecified (HCC) [F31.9] Essential hypertension [I10] Paroxysmal atrial fibrillation (HCC) [I48.0] Order(s):HGB A1C [CQLRI4N] Order #: [id number] FUTURE CBC + DIFF [SQCBCDIF] Order #: [id number] FUTURE IRON + TIBC [SQIRON] Order #: [id number] FUTURE COMP METABOLIC PANEL [SQCMP] Order #: [id number] FUTURE Prescriptions as of 07/08/2018 Sig: FARXIGA [...] AND DIFFERENTIAL Collected: 07/07/2018 Status: F Source: [place] 3:59 PM [facility] REPOSITORY TYPE CODE TESTS RESULT OUT [...] k/uL Abs Lymph 1.55 LAB AMONO % [place]% 4.7 LAB AAMONO <0.87 k/uL Abs [place] 0.32 LAB AEOS % Eosin% 2.2 LAB AAEOS <0.46 k/uL Abs Eosin 0.15 LAB ABASO % Baso% 0.3 LAB AABASO <0.11 k/uL Abs Baso <0.03 LAB AUNRBC 0 /100 WBC NRBCs 0.0 LAB ABNRBC <0.01 k/uL Absolute nRBC <0.01 LAB DTYP DTYPE Auto Diff Performed By: #### CBCDIF, HBA1C #### [facility] [address] [place] [address] HEMOGLOBIN A1C Collected: 07/07/2018 Status: F Source: [place] 3:59 PM [facility] REPOSITORY TYPE CODE TESTS RESULT OUT OF REFERENCE UNITS RANGE LAB HGBA1C 4.3-5.6 % High Hemoglobin A1c 6.9 LAB HBA0 mg/dL Est. Average Glucose 151 Result Comment: eAG: (Estimated average glucose) is a calculated value from HgbA1c and is group sales representative of the average blood glucose level in the last 2-3 month period. Performed By: #### CBCDIF, HBA1C #### [facility] [address] [place] [address] BMP WITH EGFR Collected: 06/05/2018 Status: F Source: [place] 4:10 PM [facility] REPOSITORY TYPE CODE TESTS RESULT OUT [...] OF AGE AND OLDER. Performed By: #### [id number] #### [place] [address] TSH Collected: 06/05/2018 Status: F Source: [facility] [place] 4:10 PM [facility] REPOSITORY TYPE CODE TESTS RESULT OUT OF RANGE REFERENCE UNITS LAB TSH(LOINC) 0.34 - 5.60 uIU/ml TSH 0.65 Performed By: #### [id number] #### [facility],[address] [place] [address] LITHIUM Collected: 06/05/2018 Status: F Source: [place] [place] 4:10 PM [facility] REPOSITORY TYPE CODE TESTS RESULT OUT OF REFERENCE UNITS RANGE LAB LITHIUM(CARA 0.6 - 1.2 mmol/L [place]) Low LITHIUM 0.5 Performed By: #### [id number] #### [facility],[address] [facility] [address] DOWNTIME REPORT Observed: 05/15/2018 Status: F Source: [place] 12:26 PM [facility] REPOSITORY [facility] Medical Records Department [address] [place] [address] Downtime Report MR#: [id number] Acct: [id number] Name: ELLI GUERRERO Rep #: [id number] : 1960 57 From: Mauri Carlson PCP: Yandel Bush MD Status: REG CLI This patient was seen during an EMR downtime April 28, 2018 - May 05, 2018. This patient may have a combination of paper and electronic documentation or all paper documentation. All documentation is viewable within the e-chart portion of [employer] for each patient visit. CBC W/DIFF, AUTOMATED Collected: 05/02/2018 Status: F Source: [place] 2:55 PM [facility] REPOSITORY TYPE CODE TESTS RESULT OUT OF [...] Lymph 1.33 Performed By: #### L100.0100 #### [facility] [address] [place], [address] COMPREHENSIVE METABOLIC Collected: 05/02/2018 Status: F Source: [facility] 2:55 PM [facility] REPOSITORY Order Comment: RESULT(S) PREVIOUSLY REPORTED ON [...] GAP 8 Performed By: #### L500.4050 #### [facility] [address] [facility]. [place], [place], [address] PROGRESS Observed: 04/10/2018 Status: COMPLETED Source: [place] 9:09 AM [facility] OTHER [facility]AMP[facility] REPOSITORY HNO ID: [id number] Author: Holden Rosenbaum Service: (none) Author Type: [...] N/A Beta alejandro for ASHD with prior NC or prior LVEF<40 (NQF 0070) - N/A [...] was previously followed in our office until 2014. She is known to have chronic chest [...] APPENDECTOMY 1976 - COLONOSCOP W/ OR W/O [facility] SPEC 02/13/2017 Colonoscopy mac - COLONOSCOPY 04/17/2011 X6. TA in 2008 - EGD W/O OR W/BRUSH/WASH 06/09/14 EGD - EGD W/O OR W/BRUSH/WASH 02/13/2017 EGD mac - FOOT RIGHT OP SURGERY 1992 rebuilt bottom of right foot - HEART CATHETERIZATION - LIGATE FALLOPIAN TUBE 1982 - REMOVAL OF GALLBLADDER 1977 - SCREENING COLONOSCOPY, NOT HIGH RISK PT 04/17/2011 next 04/17/16, Dr. Dimitris Carlson Denton - SCREENING COLONSCOPY NOT HIGH RISK - TOTAL ABDOM HYSTERECTOMY Hysterectomy, LEONILA - TOTAL HIP REPLACEMENT bilateral 2007 right hip, 2010 lef t hip FAMILY HISTORY Problem Relation Age of Onset - Diabetes Mother - Hypertension Mother - Cancer Father lung cancer - Diabetes Father - Heart Father NC x 2 - Hypertension Father - Diabetes Maternal Grandmother - Diabetes Maternal Grandfather - Diabetes Paternal Grandmother - Hypertension Paternal Grandmother - Diabetes Paternal Grandfather - Heart Paternal Grandfather NC Social History Marital status: Spouse name: Years [...] MD CNOV Observed: 04/10/2018 Status: COMPLETED Source: [place] 8:30 AM [facility] OTHER [facility] REPOSITORY Office Visit ([facility]) ELLI GUERRERO ([id number]) 1960 F Date Time Provider Department 04/10/18 8:30 AM HOLDEN ROSENBAUM [facility] During your visit today, we recorded the [...] N/A Beta alejandro for ASHD with prior NC or prior LVEF<40 (NQF 0070) - N/A [...] RISK PT 04/17/2011 next 04/17/16, Dr. Dimitris Carlson Denton - SCREENING COLONSCOPY NOT HIGH RISK - TOTAL ABDOM HYSTERECTOMY Hysterectomy, LEONILA - TOTAL HIP REPLACEMENT bilateral 2007 right hip, 2010 lef t hip FAMILY HISTORY Problem Relation Age of Onset - Diabetes Mother - Hypertension Mother - Cancer Father lung cancer - Diabetes Father - Heart Father NC x 2 - Hypertension Father - Diabetes Maternal Grandmother - Diabetes Maternal Grandfather - Diabetes Paternal Grandmother - Hypertension Paternal Grandmother - Diabetes Paternal Grandfather - Heart Paternal Grandfather NC Social History Marital status: Spouse name: Years [...] the following areas and commit to making terminal operations manager changes. EAT A WHOLE FOOD, PLANT BASED [...] in your area. Referring Provider: HOLDEN ROSENBAUM [[id number]] Allergies As of Date: 04/10/2018 (No Known Allergies) Date Reviewed: 04/10/2018 Reviewed by: Shy (Rn) Homar - Fully Assessed Reason for Visit: New Patient [172] Cmt: Referred by Dr. Eleazar Aguilar Reason For Visit History Recorded Primary Visit Diagnosis:PAF (paroxysmal atrial fibrillation) ([facility]) [I48.0] Other Visit Diagnosis:Chest pain, unspecified type [...] the following areas and commit to making terminal operations manager changes. EAT A WHOLE FOOD, PLANT BASED [...] OCCULT BLD Collected: 04/08/2018 Status: F Source: [facility] 10:00 AM [facility] REPOSITORY TYPE CODE TESTS RESULT OUT OF REFERENCE UNITS RANGE LAB IFO Negative Immuno Negative FOB Result Comment: This test was developed and its performance characteristics determined by [facility]'s Rohit Rodriguez [facility] [place] (-[facility]). It has not been cleared or approved by the FDA. -[facility] is regulated under CLIA as qualified to perform high-complexity testing. This test is used for clinical purposes. It should not be regarded as investigational or for research. Performed By: #### IFOBT #### [facility] [address] [place], [place] [address] CBC AND DIFFERENTIAL Collected: 04/07/2018 Status: F Source: [place] 3:45 PM [facility] REPOSITORY TYPE CODE TESTS RESULT OUT [...] k/uL Abs Lymph 1.17 LAB AMONO % [place]% 6.7 LAB AAMONO <0.87 k/uL Abs [place]ina 0.36 LAB AEOS % Eosin% 2.4 LAB AAEOS <0.46 k/uL Abs Eosin 0.13 LAB ABASO % Baso% 0.2 LAB AABASO <0.11 k/uL Abs Baso <0.03 LAB AUNRBC 0 /100 WBC NRBCs 0.0 LAB ABNRBC <0.01 k/uL Absolute nRBC <0.01 LAB DTYP DTYPE Auto Diff Performed By: #### CBCDIF, IRON #### [facility] [employer] [address] [place], [place] [address] IRON AND TIBC Collected: 04/07/2018 Status: F Source: [place] 3:45 PM [facility] REPOSITORY TYPE CODE TESTS RESULT OUT OF REFERENCE UNITS RANGE LAB IRN 41-186 ug/dL Iron 57 LAB TIBC 232-386 ug/dL TIBC High 456 LAB SAT 15-57 % Low Transferrin Saturatn 13 Performed By: #### CBCDIF, IRON #### [facility] [employer] [address] [place], [place] [address] CBC AND DIFFERENTIAL Collected: 04/03/2018 Status: F Source: [place] 10:23 AM [facility] REPOSITORY TYPE CODE TESTS RESULT OUT [...] k/uL Abs Lymph 1.25 LAB AMONO % [place]% 5.0 LAB AAMONO <0.87 k/uL Abs [place] 0.25 LAB AEOS % Eosin% 2.6 LAB AAEOS <0.46 k/uL Abs Eosin 0.13 LAB ABASO % Baso% 0.4 LAB AABASO <0.11 k/uL Abs Baso <0.03 LAB AUNRBC 0 /100 WBC NRBCs 0.0 LAB ABNRBC <0.01 k/uL Absolute nRBC <0.01 LAB DTYP DTYPE Auto Diff Performed By: #### CBCDIF, RETIC, HBA1C, CMP, FERR, B12, SERFOL, IRON #### [facility] [employer] [facility] [place] [id number] RETICULOCYTE Collected: 04/03/2018 Status: F Source: [place] 10:23 [facility] REPOSITORY TYPE CODE TESTS RESULT OUT OF REFERENCE UNITS RANGE LAB RETC 0.4-2.0 % Retic% 1.8 LAB ABRET 0.0180-0.1000 M/uL Abs Retic 0.073 Performed By: #### CBCDIF, RETIC, HBA1C, CMP, FERR, B12, SERFOL, IRON #### [facility] [employer] [address] [place], [place] [address] HEMOGLOBIN A1C Collected: 04/03/2018 Status: F Source: [place] 10:23 [facility] REPOSITORY TYPE CODE TESTS RESULT OUT OF REFERENCE UNITS RANGE LAB HGBA1C 4.3-5.6 % High Hemoglobin A1c 7.1 LAB HBA0 mg/dL Est. Average Glucose 157 Result Comment: eAG: (Estimated average glucose) is a calculated value from HgbA1c and is group sales representative of the average blood glucose level in the last 2-3 month period. Performed By: #### CBCDIF, RETIC, HBA1C, CMP, FERR, B12, SERFOL, IRON #### [facility] [address] [place], [place] [address] COMP METABOLIC PANEL Collected: 04/03/2018 Status: F Source: [place] 10:23 AM [facility] REPOSITORY TYPE CODE [...] mg/dL Glucose High 167 Result Comment: The [place] Diabetes Association (ADA) provides guidance for cutoff [...] Standards of Medical Care in Diabetes 2016, [place] [employer]. Diabetes Care. 2016.39(Suppl 1). LAB [...] has been calibrated to be traceable to IDKS. An eGFR <60 mL/min/1.73m2 for >3 months is consistent with chronic kidney disease. Refer to KDOQI guidelines for clinical interpretation. In patients with unstable renal function, e.g. those with acute kidney injury, the eGFR may not accurately reflect actual GFR. Performed By: #### CBCDIF, RETIC, HBA1C, CMP, FERR, B12, SERFOL, IRON #### [place] [address] FERRITIN Collected: 04/03/2018 Status: F Source: [place] 10:23 AM [facility] REPOSITORY TYPE CODE TESTS RESULT OUT OF REFERENCE UNITS RANGE LAB FERR 14.7-205.1 ng/mL Ferritin 22.1 Performed By: #### CBCDIF, RETIC, HBA1C, CMP, FERR, B12, SERFOL, IRON #### [place] [address] VITAMIN B12 Collected: 04/03/2018 Status: F Source: [place] 10:23 AM [facility] REPOSITORY TYPE CODE TESTS RESULT OUT OF REFERENCE UNITS RANGE LAB B12 232-1245 pg/mL Vitamin B12 497 Performed By: #### CBCDIF, RETIC, HBA1C, CMP, FERR, B12, SERFOL, IRON #### [place] [address] FOLATE, SERUM Collected: 04/03/2018 Status: F Source: [place] 10:23 AM [facility] REPOSITORY TYPE CODE TESTS RESULT OUT OF REFERENCE UNITS RANGE LAB SERFOL >4.7 ng/mL Folate, 12.7 Serum Performed By: #### CBCDIF, RETIC, HBA1C, CMP, FERR, B12, SERFOL, IRON #### [place] [address] IRON AND TIBC Collected: 04/03/2018 Status: F Source: [place] 10:23 AM [facility] REPOSITORY TYPE CODE TESTS RESULT OUT OF REFERENCE UNITS RANGE LAB IRN 41-186 ug/dL Low Iron 38 LAB TIBC 232-386 ug/dL TIBC High 484 LAB SAT 15-57 % Low Transferrin Saturatn 8 Performed By: #### CBCDIF, RETIC, HBA1C, CMP, FERR, B12, SERFOL, IRON #### [facility] [address] [place], [place] [address] PROGRESS Observed: 04/03/2018 Status: COMPLETED Source: [place] 9:11 AM [facility] REPOSITORY HNO ID: [id number] Author: Yandel Buhs Service: (none) Author Type: Physician Type: Progress [...] Abs Lymph 1.00 - 4.00 k/uL 1.29 Med[place]% % 4.7 Abs [place] <0.87 k/uL 0.30 Eosin% % 3.0 Abs [...] RISK PT 04/17/2011 next 04/17/16, Dr. Dimitris Carlson Denton - SCREENING COLONSCOPY NOT HIGH RISK - TOTAL ABDOM HYSTERECTOMY Hysterectomy, LEONILA - TOTAL HIP REPLACEMENT bilateral 2008 right hip, 2011 lef t hip FAMILY HISTORY Problem Relation Age of Onset - Diabetes Mother - Hypertension Mother - Cancer Father lung cancer - Diabetes Father - Heart Father [place] x 2 - Hypertension Father - Diabetes Maternal Grandmother - Diabetes Maternal Grandfather - Diabetes Paternal Grandmother - Hypertension Paternal Grandmother - Diabetes Paternal Grandfather - Heart Paternal Grandfather NC Social History Marital status: Spouse name: Years [...] prn. CNOV Observed: 04/03/2018 Status: COMPLETED Source: [place] 8:40 AM [facility] REPOSITORY Office Visit (FAMPWS) ELLI GUERRERO ([id number]) 1960 F Date Time Provider Department 04/03/18 8:40 AM [facility] During your visit today, we recorded the [...] Abs Lymph 1.00 - 4.00 k/uL 1.29 [place]% % 4.7 Abs [place] <0.87 k/uL 0.30 Eosin% % 3.0 Abs [...] RISK PT 04/17/2011 next 04/17/16, Dr. Dimitris Carlson Denton - SCREENING COLONSCOPY NOT HIGH RISK - TOTAL ABDOM HYSTERECTOMY Hysterectomy, LEONILA - TOTAL HIP REPLACEMENT bilateral 2007 right hip, 2010 lef t hip FAMILY HISTORY Problem Relation Age of Onset - Diabetes Mother - Hypertension Mother - Cancer Father lung cancer - Diabetes Father - Heart Father NC x 2 - Hypertension Father - Diabetes Maternal Grandmother - Diabetes Maternal Grandfather - Diabetes Paternal Grandmother - Hypertension Paternal Grandmother - Diabetes Paternal Grandfather - Heart Paternal Grandfather NC Social History Marital status: Spouse name: Years [...] be seen by just stopping at the patient coordinator front desk on arrival. It also allows you to [...] we are also available by phone at [phone]. You can also contact our office directly by using the MESSAGE MY DOCTOR tab on your my chart for non emergent questions or issues. Referring Provider: MILLY HAWLEY ([facility]) [[id number]] Allergies As of Date: 04/03/2018 (No Known [...] [I10] Bipolar affective disorder, remission status unspecified (HCC) [F31.9] Gastroesophageal reflux disease, esophagitis presence not specified [K21.9] Anemia, unspecified type [D64.9] Systemic lupus erythematosus, unspecified SLE type, unspecified organ involvement status (HCC) [M32.9] Urge incontinence [N39.41] Fatty liver [K76.0] Murmur [R01.1] Order(s):Hydrochlorothiazide 12.5 mg capsuleTake 1 capsule by mouth once daily.Disp: 90 capsuleRfl: [address] (PROTONIX) 40 mg tabletTake 1 tablet by mouth once daily.Disp: 90 tabletRfl: 1 metoprolol succinate ER (TOPROL XL) 50 mg 24 hr tabletTake 1 tablet by mouth once daily.Disp: 90 tabletRfl: 3 ECHO [775195] Order #: [id number]: 1 FUTURE CONSULT TO CARDIOLOGY [9004] Order #: [id number]: 1 FERRITIN BLD [SQFERR] Order #: [id number] FUTURE FOLATE SERUM [SQSERFOL] Order #: [id number] FUTURE RETIC COUNT [SQRETIC] Order #: [id number] FUTURE VITAMIN B12 BLOOD [SQB12] Order #: [id number] FUTURE IRON + TIBC [SQIRON] Order #: [id number] FUTURE CBC + DIFF [SQCBCDIF] Order #: [id number] FUTURE COMP METABOLIC PANEL [SQCMP] Order #: [id number] FUTURE CONSULT TO GASTROENTEROLOGY [9010] Order #: [id number]: 1 CONSULT TO OPHTHALMOLOGY [9024] Order #: [id number]: 1 HGB A1C [ZYNRZ8F] Order #: [id number] FUTURE Prescriptions as of 04/03/2018 Sig: HYDROCHLOROTHIAZIDE [...] be seen by just stopping at the patient coordinator front desk on arrival. It also allows you to [...] we are also available by phone at [phone]. You can also contact our office directly [...] ALBUMIN/CREAT RATIO Collected: 04/01/2018 Status: F Source: [place] 1:06 PM [facility] REPOSITORY TYPE CODE TESTS RESULT OUT OF REFERENCE UNITS RANGE LAB UCRR 20-300 mg/dL Creatinine,Ur 94.5 ine,Ran LAB UALBR 0.0-23.0 mg/L Albumin Urine 14.1 Random LAB UALBCR 0-30 mg/g Albumin/Creat 15 Ratio Result Comment: 30 to 300 mg/g indicates an increased risk for diabetic nephropathy. Greater than 300 mg/g is consistent with clinical nephropathy. (Am J Kidney Disease 1994, 25:107) Performed By: #### UACR #### [facility] [employer] [address] [place], [place] [address] CNPTOUTREACH Observed: 03/18/2018 Status: COMPLETED Source: SCOTT 12:00 AM [facility] REPOSITORY Patient Outreach (INTMWH) ELLI GUERRERO ([id number]) 1960 F Date Time Provider Department 03/18/18 JAMAL SCHNEIDER [facility] During your visit today, we recorded the following information about you: Allergies As of Date: 03/18/2018 (No Known Allergies) Date Reviewed: 12/27/2017 Reviewed by: Evita Vizcarra Ma - Fully Assessed Visit Diagnosis:Medication management [Z79.899] Order(s):ALBUMIN/CREAT RATIO RND UR [SQUACR] Order #: [id number] FUTURE Prescriptions as of 03/18/2018 Sig: X [...] [R76.8] INVALID FOR* More... Encounter Status:Closed by EPIC, PRODUSER on 09/05/18 AMMONIA Collected: 03/17/2018 Status: F Source: SHARI 11:06 AM [facility] REPOSITORY TYPE CODE TESTS RESULT OUT OF REFERENCE UNITS RANGE LAB L503.5510 11-32 umol/L High AMMONIA 39.0 Performed By: #### L503.5510 #### [facility] [address] [place], [place], [address] BASIC METABOLIC Collected: 03/17/2018 Status: F Source: SHARI PROFILE (BMP) 11:06 AM [facility] REPOSITORY TYPE CODE TESTS RESULT OUT OF [...] 7 Performed By: #### L500.2500, L501.9520 #### [facility] [address] [place], [address] THYROID STIM HORMONE Collected: 03/17/2018 Status: F Source: SHARI (TSH) 11:06 AM [facility] REPOSITORY TYPE CODE TESTS RESULT OUT OF RANGE REFERENCE UNITS LAB L501.9520 0.358-3.74 uIU/mL Normal TSH 1.32 Performed By: #### L500.2500, L501.9520 #### [facility] [address] [place], [address] LITHIUM Collected: 03/17/2018 Status: F Source: SHARI 11:06 AM [facility] REPOSITORY Order Comment: Date of Last Dose: 03/17/18 Time of Last Dose: 0900 TYPE CODE TESTS RESULT OUT OF RANGE REFERENCE UNITS LAB L501.9060 0.60-1.20 mmol/L Normal LI 0.90 Performed By: #### L501.9060 #### [facility] [address] [place], [address] EMERGENCY REPORT Observed: 03/14/2018 Status: F Source: DOE CARRIE 7:35 PM [facility] EMERGENCY ROOM REPORT NAME ACCOUNT SEX AGE ADMIT DISCHARGE PT MED. RECORD# NUMBER DATE DATE TYPE CHRISTI [id number] F 57 02/26/18 02/26/18 3 ELLI Sam [id number] ROOM: ER DATE OF : 1960 DICTATING [...] hayfever, or swollen Page 1 of 3 ELLI GUERRERO Emergency Room Report glands. Further review of [...] motor or sensory deficits are noted. Hand tree planter are strong and symmetric. Skin is warm [...] I am going to refer her to [facility]. She has some other family members that [...] Wynn DO TD: 03/09/18 13:07 JOB #: [id number] Transcribed by: am Electronically signed by: E-Sign: Dr. William Wynn D.O. 03/14/18 19:34 Page 3 of 3 ELLI GUERRERO Emergency Room Report EMERGENCY REPORT Observed: 03/02/2018 Status: F [facility] PM [facility] EMERGENCY ROOM REPORT NAME ACCOUNT SEX AGE ADMIT DISCHARGE PT MED. RECORD# NUMBER DATE DATE TYPE CHRISTI [id number] F 57 02/26/18 02/26/18 3 ELLI Vargas [id number] ROOM: ER DATE OF : 1960 DICTATING [...] I am going to refer her to [facility]. She has some other family members that [...] Wynn DO TD: 02/27/18 07:12 JOB #: [id number] Transcribed by: ju Electronically signed by: E-Sign: Dr. William Wynn D.O. 03/02/18 19:49 Page 1 of 1 ELLI GUERRERO Emergency Room Report CT CHEST (PE PROTOCOL) Observed: 02/26/2018 Status: F Source: [facility] 11:04 PM [place] [address] Patient: ELLI GUERRERO. Phone#: : 1960 Age: 57 Gender: F Pt. Type: ER Account: [id number] Location: [facility] Ordering: WILLIAM WYNN Exam Date: 02/26/2018/22:50 Family Phys: NO DOCTOR Charge Code: 016052 Physician: [place] Order #: [id number] DLP Dose#: 10.50 PROCEDURE: CT CHEST WITH [...] OTHER: Negative. CONCLUSION: No acute disease. Splenomegaly. [address] [address] Patient: ELLI GUERRERO Phone#: : 1960 Age: 57 Gender: F Pt. Type: ER Account: [id number] Location: 052 Ordering: WILLIAM WYNN Exam Date: 02/26/2018/22:50 Family Phys: NO DOCTOR Charge Code: [id number] Physician: [place] Order #: [id number] DLP Dose#: 10.50 Dictated by: Carmen Correa MD on 02/27/2018 at 8:23 Approved by: Carmen Correa MD on 02/27/2018 at 8:23 CBC Collected: 02/26/2018 Status: F Source: DOE BUTLER 9:01 PM [facility] REPOSITORY TYPE CODE TESTS RESULT OUT [...] 7.10 x10EE3/U L Neut # 4.20 LAB Medina #(LOINC) 0.20 - 1.00 x10EE3/U L Medina # 0.30 LAB EO #(LOINC) 0.00 - 0.50 x10EE3/U L EO # 0.10 LAB Baso #(LOINC) 0.00 - 0.10 x10EE3/U L Baso # 0.00 LAB MANUAL DIFF(LOINC) MANUAL DIFF N/A LAB MORPHOLOGY(LOINC ) MORPHOLOGY N/A Result Comment: {CD] Performed By: #### [id number] #### [facility],[address] [place] [address] D-DIMER, QUANTITATIVE Collected: 02/26/2018 Status: F Source: [facility] 9:01 [facility] REPOSITORY TYPE CODE TESTS RESULT OUT OF REFERENCE UNITS RANGE LAB D-DIMER, QUANTITATI VE(LOINC) D-DIMER, QUANTITATIVE Result Comment: QUANT D-DIMER LAB D-DIMER 0 - 230 ng/ml QUANT(LOINC) High D-DIMER QUANT 251 Performed By: #### [id number] #### [facility],[address] [place] [address] CMP WITH EGFR Collected: 02/26/2018 Status: F Source: [facility] 9:01 [facility] REPOSITORY TYPE CODE TESTS RESULT OUT [...] OF AGE AND OLDER. Performed By: #### [id number] #### [facility],[address] [place] [address] MAGNESIUM Collected: 02/26/2018 Status: F Source: [facility] 9:01 PM [facility] REPOSITORY TYPE CODE TESTS RESULT OUT OF REFERENCE UNITS RANGE LAB MAGNESIUM( 1.6 - 2.6 mg/dl LOINC) MAGNESIUM 1.9 Performed By: #### [id number] #### [facility],[address] [place] [address] TROPONIN Collected: 02/26/2018 Status: F Source: DOE BUTLER 9:01 PM [facility] REPOSITORY TYPE CODE TESTS RESULT OUT [...] such as heterophile antibodies). Performed By: #### [id number] #### [place] [address] BNP (B-TYPE NATRIURETIC Collected: 02/26/2018 Status: F Source: DOE BUTLER PEPTIDE) 9:01 [facility] REPOSITORY TYPE CODE TESTS RESULT OUT OF RANGE REFERENCE UNITS LAB BNP(LOINC) 1 - 100 pg/ml BNP 37 Performed By: #### [id number] #### [facility],[address] [place], [place] [address] CHEST 1 VIEW Observed: 02/26/2018 Status: F Source: DOE BUTLER 8:58 PM [facility] REPOSITORY [place] [address] Patient: ELLI GUERRERO Phone#: : 1960 Age: 57 Gender: F Pt. Type: ER Account: [id number] Location: [facility] Ordering: WILLIAM WYNN Exam Date: 02/26/2018/20:44 Family Phys: JAMAL SCHNEIDER Charge Code: [id number] Physician: [place] Order #: [id number] DLP Dose#: PROCEDURE: X-RAY CHEST 1 VIEW COMPARISON: [facility], XR, CHEST AP, 12/03/2012, 20:36. INDICATIONS: [...] 8:15 CNCO Observed: 12/27/2017 Status: COMPLETED Source: SCOTT 11:41 AM [facility] REPOSITORY HNO ID: [id number] Author: Mammography Coordinator Service: (none) Author Type: Physician Type: Letter Filed: 12/30/2017 11:33 PM Note Text: December 27, 2017 PID: [id number] Elli Guerrero [address] [place] [address] Dear Ms. Guerrero, We are pleased to [...] report will be kept on file at [facility] as part of your permanent medical record and are available for your continuing care. Thank you for allowing us to help in meeting your health care needs. Sincerely, Dr. Carlson Interpreting Radiologist [facility] (Normal over 40) [facility] SCREENING Observed: 12/27/2017 Status: F Source: SCOTT 9:34 AM [facility] REPOSITORY * * *Final Report* * * DATE OF EXAM: Dec 27 2017 [facility] SCREENING / PROCEDURE REASON: Encounter for screening mammogram for malignant neoplasm of breast * * * * Physician Interpretation * * * * RESULT: #[id number] - [facility] SCREENING BILATERAL DIGITAL SCREENING MAMMOGRAM [...] made to exam dated: 03/09/2014 mammogram - [facility]. The tissue of both breasts is predominantly fatty. No significant masses, calcifications, or other findings are seen in either breast. There has been no significant interval change. IMPRESSION: NEGATIVE There is no mammographic evidence of malignancy.A 1 year screening mammogram is recommended. Sonny pritchard/luis felipe:12/27/2017 11:41:50 Acid Maker: Yulisa PADILLA)(Sam), [facility] letter sent: Normal over 40 Mammogram BI-RADS: 1 Negative Stitcher Special Machine: Luis Felipe Transcribe Date/Time: Dec 27 2017 9:07A Dictated by: SONNY CARLSON MD This examination was interpreted and the report reviewed and electronically signed by: SONNY CARLSON MD on Dec 27 2017 11:41AM EST [id number] CBC AND DIFFERENTIAL Collected: 12/27/2017 Status: F Source: SCOTT 8:49 AM [facility] REPOSITORY TYPE CODE [...] k/uL Abs Lymph 1.29 LAB AMONO % Medina% 4.7 LAB AAMONO <0.87 k/uL Abs Medina 0.30 LAB AEOS % Eosin% 3.0 LAB AAEOS <0.46 k/uL Abs Eosin 0.19 LAB ABASO % Baso% 0.2 LAB AABASO <0.11 k/uL Abs Baso <0.03 LAB AUNRBC 0 /100 WBC NRBCs 0.0 LAB ABNRBC <0.01 k/uL Absolute nRBC <0.01 LAB DTYP DTYPE Auto Diff Performed By: #### CBCDIF #### [facility] [address] [place] [id number] COMP METABOLIC PANEL Collected: 12/27/2017 Status: F Source: SCOTT 8:48 AM [facility] REPOSITORY TYPE CODE [...] mg/dL Glucose High 155 Result Comment: The [place] Diabetes Association (ADA) provides guidance for cutoff [...] Standards of Medical Care in Diabetes 2016, [place] Diabetes Association. Diabetes Care. 2016.39(Suppl 1). LAB [...] Performed By: #### CMP, LIPB, HBA1C #### [facility] [address] [place], [place] [address] LIPID PANEL, BASIC Collected: 12/27/2017 Status: F Source: SCOTT 8:48 AM [facility] REPOSITORY TYPE CODE TESTS RESULT OUT [...] Desk Reference: National Heart, Lung, and Blood [place]. National Institutes of Health. 2001: NIH Publication No. 01-3305. 2. An International Atherosclerosis Society position paper: global recommendations for the management of dyslipidemia: executive summary, Atherosclerosis. 2014: 232(2):410-413. Performed By: #### CMP, LIPB, HBA1C #### [facility] [employer] [address] [place], [place] [address] HEMOGLOBIN A1C Collected: 12/27/2017 Status: F Source: SCOTT 8:48 AM [facility] REPOSITORY TYPE CODE TESTS RESULT OUT OF REFERENCE UNITS RANGE LAB HGBA1C 4.3-5.6 % High Hemoglobin A1c 7.0 LAB HBA0 mg/dL Est. Average Glucose 154 Result Comment: eAG: (Estimated average glucose) is a calculated value from HgbA1c and is group sales representative of the average blood glucose level in the last 2-3 month period. Performed By: #### CMP, LIPB, HBA1C #### [facility] [employer] [address] [place], [place] [address] PROGRESS Observed: 12/27/2017 Status: COMPLETED Source: SCOTT 8:06 AM [facility] REPOSITORY HNO ID: [id number] Author: Milly Hawley Service: (none) Author Type: Nurse Practitioner Type: [...] arise. - Discussed diabetic education issues of terminal operations manager diabetic complications, hypoglycemic symptoms, hyperglycemic symptoms, diet, [...] CNP PROGRESS Observed: 12/25/2017 Status: COMPLETED Source: SCOTT 9:18 AM [facility] REPOSITORY HNO ID: [id number] Author: Sandhya Scott Service: (none) Author Type: Auto Brake Technician Type: Progress Notes Filed: 12/25/2017 9:19 AM Note Text: The patient has been identified by name and date of : YES I have scheduled the patient for an appointment on 12/27/2017. The patient will report to the lab prior to the visit. CBC CMP HgbA1c Mammograms was scheduled following her appointment. PHMA Documentation 12/23/2017 Opts out of Population Health No Appointments Scheduled Scheduled CP Appt DM2 with No MARYAN Record Requested Opthy Appt No DM2 with No Urine Alb Lab Ordered DM2 with No DFE Record Requested BP > 139/89 Declined Mammography Record Requested Sandhya Scott MA PROGRESS Observed: 12/24/2017 Status: COMPLETED Source: SCOTT 11:46 AM [facility] REPOSITORY HNO ID: [id number] Author: Jamal Schneider Service: (none) Author Type: Physician Type: Progress Notes Filed: 12/25/2017 9:19 AM Note Text: Patient Outreach on 12/23/17 -TAMRA SCREENING -HGB A1C Jamal Schneider MD PROGRESS Observed: 12/23/2017 Status: COMPLETED Source: SCOTT 8:55 AM [facility] REPOSITORY HNO ID: [id number] Author: Sandhya Scott Service: (none) Author Type: Auto Brake Technician Type: Progress Notes Filed: 12/25/2017 9:19 AM [...] MA CNPTOUTREACH Observed: 12/23/2017 Status: COMPLETED Source: OLSON 12:00 AM [facility] REPOSITORY Patient Outreach (FAMPWS) ELLI GUERRERO ([id number]) 1960 F Date Time Provider Department 12/23/17 SANDHYA SCOTT) FAMKaushikWS During your visit today, we recorded the following information about you: Sandhya Scott MA 12/25/2017 9:19 AM Signed PHPA TEAMLET DOCUMENTATION Provider Action/FYI: patient needs appointment [...] 9:19 AM Signed Patient Outreach on 12/23/17 -TAMRA SCREENING -HGB A1C MD Sandhya Reynolds MA 12/25/2017 9:19 AM Signed The patient has been identified by name and date of : YES I have scheduled the patient for an appointment on 12/27/2017. The patient will report to the lab prior to the visit. CBC CMP HgbA1c Mammograms was scheduled following her appointment. PHMA Documentation 12/23/2017 Opts out of Population Health [...] long-term current use of insulin (HCC) [E11.9] Order(s):TAMRA SCREENING [5446275] Order #: [id number] FUTURE HGB A1C [JUCXE2O] Order #: [id number] FUTURE Prescriptions as of 12/23/2017 Sig: HYDROCHLOROTHIAZIDE [...] Encounter Status:Closed by SANDHYA SCOTT on 12/25/17 ALLERGIES ALLERGIES DATE TYPE / CODE NAME / CODE REACTION SEVERITY SOURCE 11/24/2018 Drug No Known Unknown Shari Allergy/456448305(S Allergies/F0019 [facility]OM[facility]) [address](RXNORM) Hospital Repository NG/011216458(SNOMED NO KNOWN [facility]) ALLERGIES [facility] Repository Miscellaneous No Known Drug Moderate [facility] Allergy/675674337(S Allergies ([facility]) Modifier) [facility] (Qualifier Repository Value) Drug NO KNOWN [place] Class/371739527(SNO ALLERGIES Clinic Main MED [facility]) [place] Repository ENCOUNTERS ENCOUNTERS ADMIT/DISCHARGE ACCOUNT NUMBER ADMITTING ENCOUNTER LOCATION SOURCE CLASS 12/18/2018/12/18/19 [id number] Ambulatory [address] Main [place] Repository 12/18/2018/12/18/19 [id number] Ambulatory [address] Main [place] Repository 12/12/2018 [id number] Ambulatory [facility] ding:MTLAB Repository 12/11/2018 [id number] JEREMIE CORONAHUSSEIN Ambulatory [facility] Repository 12/09/2018/12/10/19 [id number] Ambulatory [address] Main [place] Repository 12/09/2018/12/10/19 [id number] Ambulatory [address] Main [place] Repository 12/09/2018 [id number] Ambulatory [facility] Main [place] Repository 12/03/2018/12/03/19 [id number] Ambulatory [address] Main [place] Repository 12/03/2018/12/03/19 [id number] Ambulatory [address] Main [place] Repository 12/02/2018/12/03/19 [id number] Ambulatory [address] Main [place] Repository 12/01/2018/12/01/19 [id number] Ambulatory [address] Other [place] Repository 12/01/2018/12/01/19 [id number] Ambulatory [facility] MEDICAL Repository CENTERBuildi ng:NEUSAGHB 12/01/2018/12/01/19 [id number] Ambulatory [address] Repository 12/01/2018/12/01/19 [id number] Ambulatory [address] MEDICAL Repository CENTERBuildi ng:AKCTB 11/29/2018/11/29/19 [id number] Ambulatory [address] Repository 11/26/2018 [id number] Ambulatory [facility] MEDICAL Repository CENTERBuildi ng:AGNE 11/24/2018/11/26/19 [id number] Koram, Bonnie Inpatient [place] Shari [address] Encounter [facility] ding:PCURoom Repository : [id number]: 11/24/2018 [id number] Koram, Bonnie Ambulatory BMSBuilding: Shari [place] BMS[facility] Repository 11/24/2018 [id number] Koram, Bonnie Ambulatory BMSBuilding: [place] BMS[facility] Repository 11/24/2018 [id number] Koram, Bnonie Ambulatory BMSBuilding: [place] BMS[facility] Repository 11/21/2018/11/21/20 [id number] Ambulatory [address] Repository 10/30/2018/10/30/20 [id number] [place] Emergency Buildin Doe Butler [address] [place] [address] Room: ERBed: [facility] Repository 10/28/2018 [id number] CHAD, Ambulatory Doe Carrie WANG MD [facility] Repository 10/20/2018/10/28/20 [id number] ONWUZULIKE, Inpatient [address] Repository 10/20/2018/10/28/20 [id number] [facility] [address] MEDICAL Repository CENTERBuildi nRoom: 9122Bed: 10/20/2018 [id number] Ambulatory RBuilding:[facility] Repository 10/20/2018/10/20/20 [id number] Emergency Shari Shari 18 [facility] ding:ED Repository 10/19/2018/10/20/20 [id number] LEONCIO, Emergency Buildin Doe Pomerene 18 [address] Room: ERBed: [facility] Repository 10/13/2018/10/17/20 [id number] ERINN, Inpatient [place] 18 FARID ARRON Encounter Clinic Other [place] Repository 10/13/2018/10/17/20 [id number] ERINN, Inpatient AK[facility] CENTERBuildi ng:NSICRoom: 3203Bed: 10/13/2018/10/13/20 [id number] [facility], [facility] FCO M Room: ERBed: [facility] Repository 10/09/2018/10/09/20 [id number] Ambulatory [address] Repository 10/09/2018/10/10/20 [id number] Ambulatory [address] Main [place] Repository 10/06/2018/10/06/20 [id number] Ambulatory [address] Main [place] Repository 09/05/2018/09/05/20 [id number] HLIVKO, Ambulatory Doe Pomerene 18 [facility] Repository 08/20/2018 [id number] Ambulatory [facility] ding:MTLAB Repository 08/08/2018/08/08/20 [id number] HLIVKO, Ambulatory Doe Pomerene 18 [facility] Repository 07/24/2018/07/24/20 [id number] HLIVKO, Ambulatory Doe Pomerene 18 [facility] Repository 07/08/2018/07/09/20 [id number] Ambulatory [address] Repository 07/07/2018/07/07/20 [id number] Ambulatory [address] Repository 06/05/2018/06/05/20 [id number] TED, Ambulatory Doe Pomerene 18 [facility] Repository 05/02/2018 [id number] [facility] ding:LAB.FUT Repository URE 04/11/2018/04/11/20 [id number] Ambulatory [address] Repository 04/10/2018/04/10/20 [id number] Ambulatory [address] Other [place] Repository 04/10/2018/04/10/20 [id number] Ambulatory VIANCA [address] [facility] 04/08/2018/04/08/20 [id number] Ambulatory [address] Main [place] Repository 04/07/2018/04/07/20 [id number] Ambulatory [address] Main [place] Repository 04/03/2018/04/03/20 [id number] Ambulatory [address] Main [place] Repository 04/03/2018/04/04/20 [id number] Ambulatory [address] Main [place] Repository 04/01/2018/04/01/20 [id number] Ambulatory [address] Main [place] Repository 03/17/2018 [id number] Ambulatory [facility] ding:MTLAB Repository 02/26/2018/02/27/20 [id number] WILLIAM WYNN Emergency Buildin[address] [place] [address] Room: ERBed: [facility] Repository 12/27/2017/12/27/19 [id number] Ambulatory [address] Main [place] Repository 12/27/2017/12/27/19 [id number] Ambulatory [address] Main [place] Repository 12/27/2017/12/27/19 [id number] Ambulatory [address] Repository PAYERS PAYERS ENCOUNTER GUARANTOR PAYER SUBSCRIBER SOURCE 12/12/2018 CHRISTINA Woods Primary CHRISTINA Peggy Shari [id number] TR Insurance:AULTCAREJayden FEIKERTDOB: [address] Number: [id number] Women's [facility] [address]Nug: [id number] Repository Date:1803-29-01[address] [address], [place] [address]UW: 12/12/2018 Secondary NOT GIVENUNK [place] Insurance:SELF PAY [facility] Number: Effective Repository Date:2018-12-12 12/11/2018 ELLI Vargas Primary CHRISTINA Doe Butler CHRISTIDOB: Insurance:AULTCARE FEIKERTDOB: [facility] [id number] [facility] [id number] Number: [address] [facility] [address] Repository [address] [place] [address], [id number] [address] [place] [address], [place] [address]Gbj: Date:Plan Name:Vini [place] [id number] () 12/01/2018 ELLI Vargas Primary CHRISTINA Millan [facility] FEIKERTDOB: Insurance:AULTCAREPoli FEIKERTDOB: Health System cy Number: [id number] Repository [facility] [address] [id number] [address] [place] [address], Date: [place] [address]Ata: () 12/01/2018 ELLI Vargas Primary CHRISTINA Millan [facility] FEIKERTDOB: Insurance:AULTCAREPoli FEIKERTDOB: Health System cy Number: [id number] Repository [facility] [address] [id number] [address] [place] [address], Date: [facility]Ivd: () 11/26/2018 ELLI Vargas Primary ELLI Vargas [facility] FEIKERTDOB: Insurance:AULTCAREPoli FEIKERTDOB: Health System cy Number: [id number] Repository [facility] [address] [id number] [address] [place] [address], Date: [place] [address]Dng: () 11/24/2018 CHRISTINA A Primary CHRISTINA Woods [place] [id number] TR Insurance:AULTCAREPoli FEIKERTDOB: [address], [place] Number: [id number] [facility] [address]Ezg: [id number] Repository Date:5759-16-94VH BOX () [address] [place] [address]CR: 11/24/2018 Secondary NOT GIVENUNK [place] Insurance:SELF PAY [facility] Number: Effective Repository Date:2018-11-24 11/24/2018 CHRISTINA A Primary CHRISTINA A Shari [id number] TR Insurance:AULTCAREPoli FEIKERTDOB: [address], [place] Number: [id number] Women's Hospital [address]Upv: [id number] Repository Date:2952-07-42NH BOX () [address], [place] [address]PX: 11/24/2018 Secondary NOT GIVENUNK [place] Insurance:SELF PAY [facility] Number: Effective Repository Date:2018-11-24 11/24/2018 CHRISTINA A Primary CHRISTINA Mccarthy [id number] TR Insurance:AULTCAREPoli FEIKERTDOB: [address], [place] Number: [id number] Women's Hospital [address]Ekd: [id number] Repository Date:8363-40-49PN [address] () [address], [place] [address]OT: 11/24/2018 Secondary NOT GIVENUNK Shari Insurance:SELF PAY [facility] Number: Effective Repository Date:2018-11-24 11/24/2018 CHRISTINA A Primary CHRISTINA Mccarthy [id number] TR Insurance:AULTCAREPoli EUGENIOKERTDOB: [address], [place] Number: [id number] Women's Hospital [address]Soy: [id number] Repository Date:4727-83-37MT BOX () [place] [address]WK: 11/24/2018 Secondary NOT GIVENUNK Shari Insurance:SELF PAY [facility] Number: Effective Repository Date:2018-11-24 10/30/2018 ELLI Vargas Primary CHRISTINA BECKERZANETDOB: Insurance:AULTCAREPoli FEIKERTDOB: [facility] [id number] cy Number: [id number] [address] [place] [address] [place] [address], Date:Plan Name:[address] [address]Wru: [id number] () 10/28/2018 ELLI Vargas Primary CHRISTINA Ortizrolan FEIKERTDOB: Insurance:AULTCARE FEIKERTDOB: [facility] [id number] REPolicy Number: [id number] Hospital [facility] RD [id number] [address] [facility] [address] Repository [address] [place] [address], Date:Plan Name:[address] [address]Zyj: [place] [phone] (HP) 10/20/2018 ELLI Vargas Primary CHRISTINA Millan [facility] FEIKERTDOB: Insurance:AULTCAREPoli FEIKERTDOB: [facility] cy Number: [id number] Repository [facility] RD [id number] [address] [place] [address], Date: [place] [address]Shi: (HP) 10/20/2018 ELLI Vargas Primary Insurance:SELF [facility]Y INSCOPolicy FEIKERTDOB: [facility] Number: Effective [id number] Repository [facility] Date:2018-10-[address] [id number] Name:[address] [place] [address]Tls: [place] [address]Wmp: (HP)Tel: [phone] (HP) (WP) [phone] (WP) 10/20/2018 CHRISTINA Woods Primary CHRISTINA Peggy Shari [id number] TR Insurance:AUCAREPoli FEIKERTDOB: [address] cy Number: [id number] [facility] [address]Phi: [id number] Repository Date:0402-05-93DU BOX () [address], [place] [address]LG: 10/20/2018 Secondary NOT GIVENUNK Shari Insurance:SELF PAY [facility] Number: Effective Repository Date:2018-10-20 10/19/2018 ELLI Vargas Primary CHRISTINA Butler FEIKERTDOB: Insurance:AULTCARE FEIKERTDOB: [facility] [id number] Number: [address] [facility] [address] Repository [address] [place] [address], [id number] [address] [place] [address] [place] [address]Arm: Date:Plan Name:A2 Mi [id number] () 10/13/2018 ELLI Vargas Primary CHRISTINA Millan [facility] FEIKERTDOB: Insurance:AULTCAREPoli FEIKERTDOB: [facility] cy Number: [id number] Repository [facility] RD [id number] [address] [place] [address], Date: [place] [address]Vse: () 10/13/2018 ELLI Vargas Primary CHRISTINA Bulter FEIKERTDOB: Insurance:AULTCARE FEIKERTDOB: [facility] [id number] [address] Number: [address] [facility] [address] Repository [address] [place] [address], [id number] [address] [place] [address] [place] [address]Thv: Date:Plan Name:[facility] [id number] () 09/05/2018 ELLI Vargas Primary CHRISTINA Butler FEIKERTDOB: Insurance:AULTCAREPoli FEIKERTDOB: [facility] cy Number: [id number] [id number] 1 [facility] Repository [address] [place] [address], Date:Plan Name:[address] [place] [address]Xff: [id number] () 08/20/2018 CHRISTINA Woods Primary CHRISTINA Mccarthy [id number] TR Insurance:AULTCAREPoli FEIKERTDOB: [address], cy Number: [id number] [place] [address]Yfv: [id number] Repository Date:5337-76-60IO BOX (HP) [place] [address]CX: 08/20/2018 Secondary NOT GIVENUNK [place] Insurance:SELF PAY [facility] Number: Effective Repository Date:2018-08-20 08/08/2018 ELLI Vargas Primary CHRISTINA Butler FEIKERTDOB: Insurance:AULTCARE FEIKERTDOB: [facility] [id number] [place] [address] [id number] Hospital TR Number: [address] Repository [address] [place] [address], [id number] [address] [place] [address]Ity: Date:Plan Name:A2 Mi [id number] () 07/24/2018 ELLI Vargas Primary CHRISTINA Butler FEIKERTDOB: Insurance:AULTCARE FEIKERTDOB: [facility] [id number] [place] [address] [id number] Hospital TR Number: [address] Repository [address] [place] [address], [id number] [address] [place] [address]Tik: Date:Plan Name:A2 Mi [id number] () 06/05/2018 ELLI Vargas Primary CHRISTINA Butler FEIKERTDOB: Insurance:AULTCARE FEIKERTDOB: [facility] [id number] [facility] [id number] Hospital TR Number: [address] Repository [address] [place] [address], [id number] [address] [place] [address] Date:Plan Name:A2 Mi [id number]: () 05/02/2018 CHRISTINA Woods Primary CHRISTINA Mccarthy [id number] TR Insurance:AULTCAREPoli FEIKERTDOB: [address] Number: [id number] [address]Xlb: [id number] Repository Date:0703-97-89UO BOX (HP) [address], [place] [address]FF: 05/02/2018 Secondary NOT GIVENUNK Shari Insurance:SELF PAY [facility] Number: Effective Repository Date:2018-04-07 04/10/2018 ELLI Vargas Primary [facility] [id number] cy Number: [id number] [place] [id number] [address] [place] [address], Date: [place] [address]Dgr: () 03/17/2018 Christina Woods Primary Christina Mccarthy [id number] Insurance:[facility]: [facility] cy Number: [id number], [id number] [place]ository [place] [address]Juh: Date:6419-19-41GH [address] [place] [address] () [address]IR: 03/17/2018 Secondary NOT GIVENUNK Shari Insurance:SELF PAY [facility] Number: Effective Repository Date:2018-03-17 02/26/2018 ELLI Vargas Primary CHRISTINA Azar [facility] Insurance:[facility]: [facility] [id number] [facility] [id number] Hospital TR Number: [address] Repository [address] [place] [address], [id number] [address] [place] [address] Date:Plan Name:[facility] [id number]: ()
== END ==
PROVIDERS: Family Provider Family Medicine; PCP Family Medicine; Referring Provider Psychiatry & Neurology Psychiatry; Visit Provider Psychiatry & Neurology Psychiatry
DX: E87.6 Hypokalemia (principal); Z79.899 Other long term (current) drug therapy
CPT/HCPCS: 36415; 80048; 80178; 84443

== ENCOUNTER → 2019-01-21 08:59 | Outpatient (CLI) | payer OTHER, SELFPAY ==
[2018-11-24 13:22] VITALS: BMI 37.2
[2019-01-21] VITALS (9 sets, daily range): BP systolic 109–140; BP diastolic 45–66; PULSE 60–69; RESP 12–20; TEMP 37.2; O2SAT 92–98; BMI 40.3
--- NOTE | 2019-01-21 09:13 | CT_ITS ---
PROCEDURE: CT DIRECTED CORE LIVER BIOPSY INDICATION: Female, 58 years old. Elevated liver enzymes. PHYSICIAN: Dr. Alem BARRON CONSENT: Written informed consent was obtained having explained the risks, benefits and alternatives in detail with the patient who accepted the risks and agreed to proceed. Laboratory review and clinical assessment was performed. CONSCIOUS SEDATION PROTOCOL: The Drugs used were: 2 mg Versed, IV., and 50 mcg Fentanyl, IV. The sedation time was: 14 minutes. Conscious sedation was started at 10:31 AM and terminated at 10:45 AM. The conscious sedation protocol was independently monitored. RADIATION DOSAGE (If Supplied By Facility): CTDIvol = ( 15 ) mGy, DLP = ( 379.75 ) mGycm Individualized dose optimization techniques were used for this CT. TECHNIQUE: Using CT image guidance with image documentation, a suitable location in the left lobe of the liver was identified. Using a right lateral approach, puncture of the liver was uneventful with an 18-gauge core needle system. Two 18-gauge core samples were obtained, and submitted in formalin to the pathologist for further assessment. Followup CT scan revealed no distinct sequelae. CT/Biopsy/Inj or Needle Placement IMPRESSION: 1. CT directed core needle biopsy of the liver, using CT image guidance with image documentation as described. 2. Conscious Sedation protocol utilized with independent monitoring. Electronically Signed: Ankur Ferrara, at 11:07 EST , Service support ,
[2019-01-21] MEDS: Midazolam 2 MG/2 ML Syringe IV (10:31)
[2019-01-21] MEDS: fentaNYL 100 MCG/2 ML Ampul IV (10:31)
--- NOTE | 2019-01-21 10:45 | LIVB_PTH ---
PATIENT: EARL BARRAZA LOC: CT U#:[id number] AGE/SX: 65/F ROOM: RE01/21/[address]: Dr. Rebel Byrd MD : 1960 BED: DIS: SPEC #: [id number] RECD: 01/21/19 10:50 STATUS: MARILYNN REDane #: [id number] NAVNEET: 01/21/19 10:[address]: Rebel Byrd DEPT: SURGICAL PATHOLOGY RECD BY: Jem Corrigan ENTERED: 01/21/19 11:57 SP TYPE: LIVER BX OTHR DR: Dr. 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 See microscopic description. CE:gretchen 01/22/19 COMMENT Case has been reviewed in consultation with Dr. Villeda who concurs with the above diagnosis. IDC:SJ MICROSCOPIC DESCRIPTION Slides are reviewed. This adequate core biopsy of liver demonstrates a nodular appearance at low power. Higher power evaluation shows bridging fibrosis. Mindi's trichrome stain with appropriate control highlights portal to portal and portal to central bridging fibrosis. Reticulin stain shows loss of hepatic lobular architecture. The findings described are consistent with cirrhosis. Evaluation of the portal tracts demonstrates moderate chronic inflammatory activity, characterized by a predominance of lymphocytes, with spillover across the limiting plate and focal piecemeal necrosis. No plasma cells are found. Some bile ductular proliferation is noted within the portal tracts. Portal blood vessels are within normal limits. The hepatic lobules demonstrate moderate macrovesicular hepatosteatosis. Some of the hepatocytes also show ballooning degeneration. Many of the hepatocyte nuclei reveal glycogenation, a finding which is occasionally associated with diabetes mellitus. No Mary Carmen's hyaline or viral inclusions are found. PAS stain with appropriate control is positive for cytoplasmic glycogen. PAS stain with diastase is negative in hepatocyte cytoplasm. Iron stain with appropriate control is negative. GROSS DESCRIPTION Received in fixative is one container labeled with the patient's name and designated liver biopsy. The specimen consists of three needle core biopsies ranging in length from 0.5 to 1.4 cm and measuring 0.1 cm in diameter. The specimen is totally submitted in one cassette. / CE:gretchen 01/21/19 TC: 3 CPT: 52083, 49688 x5
== END ==
PROVIDERS: Family Provider Family Medicine; PCP Family Medicine; Referring Provider Internal Medicine Gastroenterology; Visit Provider Internal Medicine Gastroenterology
DX: R76.0 Raised antibody titer (principal)
CPT/HCPCS: 47000; 77012; 88307; 88313; 99156; J7040

== ENCOUNTER 2019-04-29 07:35 | Observation (INO) | payer OTHER, SELFPAY ==
[2019-01-21 09:38] VITALS: BMI 40.3
[2019-04-29] VITALS (11 sets, daily range): BP systolic 102–148; BP diastolic 36–65; PULSE 57–79; RESP 16–23; TEMP 36.6–37.3; O2SAT 93–98; BMI 40.3; BMI 39.1
--- NOTE | 2019-04-29 07:52 | RAD_ITS ---
STUDY: X-RAY CHEST REASON FOR EXAM: Female, 58 years old. Chest pain. TECHNIQUE: Single AP portable view of the chest. COMPARISON: None. FINDINGS: EKG electrodes are seen. There is elevation of the right hemidiaphragm. The lungs are clear. There is no demonstrated pleural abnormality. Normal size heart. Normal mediastinum and stacy. Normal visualized pulmonary arteries. Normal visualized aortic arch and descending thoracic aorta. There are degenerative changes of the visualized thoracic spine. Normal visualized ribs, clavicles, and shoulders. There is no demonstrated abnormality of the visualized soft tissue structures of the upper abdomen. RAD/Chest 1 View (Portable) IMPRESSION: No acute abnormality is seen. Electronically Signed: Ankur Ferrara, at 8:28 EDT , Service support ,
--- NOTE | 2019-04-29 07:52 | EKG12_ITS ---
Test Reason : CP Blood Pressure : / mmHG Vent. Rate : 067 BPM Atrial Rate : 067 BPM P-R Int : 178 ms QRS Dur : 106 ms QT Int : 406 ms P-R-T Axes : 014 -37 088 degrees QTc Int : 429 ms Normal sinus rhythm Left axis deviation Nonspecific T wave abnormality Poor R wave progression Abnormal ECG Confirmed by BHARATH BARRON, LUKE ([id number]), make up editor JOSE J CARLSON ([id number]) on 05/01/2019 6:33:45 AM Referred By: PASTORA Confirmed By:LUKE SINHA MD
[2019-04-29] MEDS: Aspirin 81 MG TAB.CHEW 324 MG PO (08:01)
[2019-04-29 08:02] LABS: Absolute Lymphocyte Count 1.11 X10^3/ul (0.83-4.51); Absolute Neutrophil Count 3.4 X10^3/uL (2.0-7.7); Basophil# 0.01 X10^3/uL; Basophil% 0.2 % (0-1); Eosinophil# 0.12 X10^3/uL; Eosinophils% 2.4 % (0-5); Hematocrit 37.4 % (37-47); Hemoglobin 12.7 g/dl (12.0-15.0); Lymphocyte # 1.11 X10^3/ul (4.0); Lymphocyte % 22.2 % (19-41); Mean Corpuscular Volume 82.4 fL (81-99); Mean Platelet Vol. 10.2 fl (6.2-12.0); Monocyte# 0.32 X10^3/uL; Monocyte% 6.4 % (0-10); Neutrophil # 3.44 X10^3/uL (2.7-7.7); Neutrophil % 68.6 % (47-70); Platelet Count 93 K/mm3 (150-450); RBC Distribution Width CV 14.5 % (11.6-14.6); RBC Distribution Width SD 43.8 fl (35.1-43.9); Red Blood Count 4.54 M/mm3 (4.2-5.4)
[2019-04-29 08:04] LABS: POSITIVE COUNT NO; POSITIVE DIFFERENTIAL NO; POSITIVE MORPHOLOGY NO
[2019-04-29] MEDS: Nitroglycerin SL (ED/IMG/CATH) 0.4 MG TABLET SUBLINGUAL (08:04)
[2019-04-29] MEDS: 0.9% Normal Saline 1,000 ML 150 ML IV ×3 (08:15→22:34)
[2019-04-29 08:17] LABS: Anion Gap 8 (5-15); BUN 11 mg/dL (7-18); BUN/Creat Ratio 14.7 RATIO (10-20); Calcium,Total 9.8 mg/dL (8.5-10.1); Chloride 98 mmol/L (98-107); Creatinine, Serum 0.75 mg/dL (0.55-1.02); EST Glomerular Filtration Rate 84 mL/min (>60); Est Glom Filt Rate - Afr Amer 102 mL/min (>60); Estimated Creatinine Clearance 72.68 ml/min; Glucose 379 mg/dL (74-106); Potassium 3.9 mmol/L (3.5-5.1); Sodium Level 135 mmol/L (136-145)
[2019-04-29] MEDS: Mag Hydrox/Al Hydrox/Simeth 30 ML UDC PO (08:21)
--- NOTE | 2019-04-29 08:33 | ED.VISSUMM ---
- ER Visit Summary Date of Service: 04/29/19 Chief Complaint: [12 pain] History of Present Illness: The patient is a 58 F [presents the emergency department with discomfort in her chest that started this morning around 6 AM. Patient states that she had woken up and took her morning medications and ate some cantaloupe. 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 She felt very nauseated with that she did have an episode of vomiting that she noticed a small amount of blood with his well. Patient states that she felt like that might relieve her symptoms but it did not. Patient presents to the ER for further evaluation after calling her primary care physician's office. Patient does have a history of diabetes, hypertension, GERD, psoriatic arthritis, lupus, cirrhosis of the liver. Past surgical history significant for cholecystectomy tubal ligation, bilateral hip replacement and appendectomy. Patient has no heart history. He denies recent travel or surgery. Denies recent illness.] Physical Examination: [HEENT-PERRLA, EOMI. Cranial nerves II through XII grossly intact. TMs clear. Mucous membranes moist. No adenopathy. Cardiovascular-regular rate and rhythm without murmur or ectopy Lungs-clear to auscultation, chest wall stable without crepitus or subcu emphysema Abdomen-normoactive bowel sounds, soft, nontender, no rebound or rigidity, no peritoneal signs. Extremities-intact ?4, normal range of motion, normal pulses, atraumatic] Test Results: [EKG obtained shows sinus rhythm with a ventricular rate [address] changes. CBC with her showing a 5.0, hemoglobin 12.7, hematocrit 37, platelets 93. Chemistries unremarkable. Glucose was 379. Troponin less than 0.015. Chest x-ray showed nothing acute.] Emergency Department Course and Treatment: [Patient received aspirin in the emergency department and also 1 sublingual nitro which mostly resolved her chest tightness. Patient also was given a GI cocktail.] Treatment Plan: [This point etiology of symptoms unclear however the patient does have risk factors for heart disease. Recommended admission for further work-up and evaluation.] Disposition: [Admit] Impression: [Chest pain-rule out acute current syndrome Hyperglycemia] This note was generated with [email or web address]ation software. It may contain incorrect words, spelling, and punctuation that were not noted in review of the chart prior to signing ED Disposition - Plan for ED Patient: Referrals: Yandel Cabrera MD [Primary Care Provider] -
--- NOTE | 2019-04-29 08:36 | ED.DCSUM_ITS ---
- ER Visit Summary Date of Service: 04/29/19 Chief Complaint: [12 pain] History of Present Illness: The patient is a 58 F [presents the emergency department with discomfort in her chest that started this morning around 6 AM. Patient states that she had woken up and took her morning medications and ate some cantaloupe. 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 She felt very nauseated with that she did have an episode of vomiting that she noticed a small amount of blood with his well. Patient states that she felt like that might relieve her symptoms but it did not. Patient presents to the ER for further evaluation after calling her primary care physician's office. Patient does have a history of diabetes, hypertension, GERD, psoriatic arthritis, lupus, cirrhosis of the liver. Past surgical history significant for cholecystectomy tubal ligation, bilateral hip replacement and appendectomy. Patient has no heart history. He denies recent travel or surgery. Denies recent illness.] Physical Examination: [HEENT-PERRLA, EOMI. Cranial nerves II through XII grossly intact. TMs clear. Mucous membranes moist. No adenopathy. Cardiovascular-regular rate and rhythm without murmur or ectopy Lungs-clear to auscultation, chest wall stable without crepitus or subcu emphysema Abdomen-normoactive bowel sounds, soft, nontender, no rebound or rigidity, no peritoneal signs. Extremities-intact ?4, normal range of motion, normal pulses, atraumatic] Test Results: [EKG obtained shows sinus rhythm with a ventricular rate [address] changes. CBC with her showing a 5.0, hemoglobin 12.7, hematocrit 37, platelets 93. Chemistries unremarkable. Glucose was 379. Troponin less than 0.015. Chest x-ray showed nothing acute.] Emergency Department Course and Treatment: [Patient received aspirin in the emergency department and also 1 sublingual nitro which mostly resolved her chest tightness. Patient also was given a GI cocktail.] Treatment Plan: [This point etiology of symptoms unclear however the patient does have risk factors for heart disease. Recommended admission for further work-up and evaluation.] Disposition: [Admit] Impression: [Chest pain-rule out acute current syndrome Hyperglycemia] This note was generated with [employer] software. It may contain incorrect words, spelling, and punctuation that were not noted in review of the chart prior to signing ED Disposition - Plan for ED Patient: Referrals: Yandel Cabrera MD [Primary Care Provider] -
--- NOTE | 2019-04-29 08:36 | NURSING ---
DR ALVARO GUILLORY
--- NOTE | 2019-04-29 08:41 | HP.PCM_ITS ---
Problem List (1) Chest pain Status: Acute (2) Bipolar disorder Status: Chronic (3) Diabetes mellitus, type II Status: Chronic (4) GERD (gastroesophageal reflux disease) Status: Chronic (5) Hypertension Status: Chronic (6) Morbid obesity with BMI of 45.0-49.9, adult Status: Chronic History of Present Illness Date of Admission: 04/29/19 Chief Complaint: Epigastric discomfort The patient is a 58 year old F past medical history segment for lupus and psori atic arthritis, autoimmune hepatitis with subsequent cirrhosis, hypertension diabetes mellitus type 2 who presented with chest discomfort. Patient symptoms started on the morning of her admission initially with significant acid reflux. She also did experience nausea and did vomit x1. She subsequently developed chest discomfort which she described as squeezing located in the epigastric region. Pain persisted so she presented to the emergency department where she received nitroglycerin with some relief. She was subsequently admitted to monitored bed for further management. Her acid reflux symptoms however persisted. Past Medical History Past Medical History (Chronic Problems): Chronic Problems Hypertension (Chronic) GERD (gastroesophageal reflux disease) (Chronic) Bipolar disorder (Chronic) Diabetes mellitus, type II (Chronic) Morbid obesity with BMI of 45.0-49.9, adult (Chronic) Allergies No Known Allergies Allergy (Verified 11/24/18 10:25) Home Medications: Ambulatory Orders Medication Instructions Recorded Nitrostat 0.4 mg SL PRN PRN 03/27/15 Protonix 40 mg PO DAILY 03/27/15 Zoloft 150 mg PO DAILY 03/27/15 Hydroxychloroquine [Plaquenil] 200 mg PO BIDCM 10/20/18 Sherman Carbonate [Sherman 1 tab PO BID 11/24/18 Carbonate ER] Empagliflozin [Jardiance] 10 mg PO DAILY 04/29/19 Hydrochlorothiazide 12.5 mg PO DAILY 04/29/19 Surgical History: - - Right foot surgery, hysterectomy, appendectomy, cholecyst ectomy, bilateral tubal ligation, bilateral total hip repair. 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 Denies: Orthopnea, Palpitations, Paroxysmal Noc. Dyspnea Respiratory: Denies: Cough, Shortness of breath at rest, Shortness of breath upon exertion, Sputum production Gastrointestinal: Reports: Dyspepsia, Nausea, Vomiting. Denies: Abdominal Pain, Hematemesis, Hematochezia, Melena Genitourinary: Denies: Dysuria, Frequency, Hematuria, Urgency Musculoskeletal: Denies: Joint Pain, Joint Tenderness Skin: Denies: Rash Neurological: Denies: Focal weakness, Numbness, Tingling Psychiatric: Denies: Homicidal Ideations, Suicidal Ideations Hematologic/ Lymphatic: Denies: Easy Bruising, Easy Bleeding VTE Information - Inpt Only VTE Present on Admission: No VTE Mechan Device Prophylaxis: SCD's VTE Pharm Prophylaxis ordered?: No Reason prophylaxis not ordered:: Medical Contraindication Patient Problems: Active and Suspected Problems Chest pain (Acute) Objective: GENERAL: cooperative HEENT: Atraumatic; moist oral mucosa EYES; Anicteric, Normal Conjunctiva NECK; supple, normal thyroid, no distended JVD. RESPIRATORY: Diminished to auscultation bilaterally, CARDIOVASCULAR: Regular S1 S2, no audible murmurs GI: soft, non-tender, normoactive bowel sounds, : No Renal angle tenderness; EXTREMITIES: No edema, no clubbing, no cyanosis. MUSCULOSKELETAL: No Joint Tenderness; no muscle waisting NEURO: Awake; no lateralizing signs. SKIN: No Rash PSYCH; Normal affect - Physical Exam Vital Signs Temp Pulse Resp BP Pulse Ox 97.9 F 79 23 H 102/65 94 04/29/19 07:36 04/29/19 08:12 04/29/19 08:12 04/29/19 08:12 04/29/19 08:12 Oxygen Flow Rate (L/min) 2 Oxygen Delivery Method Nasal Cannula Weight: 109.9 kg Body Mass Index (BMI) 40.3 Laboratory Tests Past 24 Hrs 04/29/19 04/29/19 07:40 07:40 WBC 5.0 RBC 4.54 Hgb 12.7 Hct 37.4 MCV 82.4 MCH 28.0 MCHC 34.0 RDW 14.5 RDW Differential 43.8 Plt Count 93 L MPV 10.2 Immature Gran % (Auto) 0.200 Neut % (Auto) 68.6 Lymph % (Auto) 22.2 [place] % (Auto) 6.4 Eos % (Auto) 2.4 Baso % (Auto) 0.2 Absolute Neuts (auto) 3.4 Absolute Lymphs (auto) 1.11 Total Counted Not Reportable Sodium 135 L Potassium 3.9 Chloride 98 Carbon Dioxide 29.0 Anion Gap 8 BUN 11 Creatinine 0.75 Estim Creat Clear Calc 72.68 Est GFR (MDRD) Af Amer 102 Est GFR (MDRD) Non-Af 84 BUN/Creatinine Ratio 14.7 Glucose 379 H Calcium 9.8 Troponin I < 0.015 Assessment/Plan All Active Problems Chest pain (Acute) The patient is a 58 year old F past medical history segment for lupus and psoriatic arthritis, autoimmune hepatitis with subsequent cirrhosis, hypertension diabetes mellitus type 2 who presented with chest discomfort 1. Chest discomfort do suspect significant GERD however given patient risk factors including hypertension diabetes as well as lupus patient has been admitted to a monitored bed. Plan is to rule out IL with serial cardiac enzymes and patient undergo a nuclear stress test in a.m. if IL is ruled out 2. GERD with significant symptoms patient is on PPI did continue; did discuss with patient to follow-up with PCP for EGD if cardiac cause of her chest discomfort is ruled out 3. SLE: Patient is on Plaquenil home dose continued 4. Autoimmune hepatitis with subsequent cirrhosis of the liver 5. Psoriatic arthritis plan symptoms well controlled 6. Thrombocytopenia attributed to patient's cirrhosis of the liver; no evidence of bleeding we will continue with monitoring 7. Bipolar disorder patient is on lithium 8. Depression with anxiety patient is on Zoloft 9. Diabetes mellitus type II held patient oral agents placed on Accu-Cheks before meals and at bedtime with sliding scale coverage 10. Hypertension-blood pressure controlled, home medications continued with dose adjustment as needed 11. DVT prophylaxis avoided the use of chemoprophylaxis in view of patient low platelet count Active Medications Acetaminophen (Tylenol) 650 mg PO Q6H PRN PRN PRN Reason: Mild pain 1-3/Temp > 100.7 F Al Hydroxide/Mg Hydroxide (Mylanta Ii) 30 ml PO Q6H PRN PRN PRN Reason: Gastric Burning Albuterol Sulfate (Ventolin Aerosols) 2.5 mg INHALATION Q2H PRN PRN PRN Reason: SOB/Wheezing Dextrose (D50w Syringe) 0 gm IV X1 PRN; Protocol PRN Reason: Hypoglycemia Glucagon () 1 mg IM .X1 PRN PRN Reason: Hypoglycemia Hydrochlorothiazide () 12.5 mg PO DAILY [facility] Hydroxychloroquine Sulfate (Plaquenil) 200 mg PO BIDCM [facility] Sodium Chloride () 1,000 mls @ 150 mls/hr IV .Q6H40M [facility] Last Admin: 04/29/19 08:15 Dose: 150 mls/hr Insulin Human Lispro (Humalog Kwikpen (Bkc)) 0 unit SQ ACHS [facility]; Protocol Sherman Carbonate (Eskalith Cr) mg PO BID CORRINE Magnesium Hydroxide (Milk Of Magnesia) 30 ml PO DAILY PRN PRN PRN Reason: Constipation Melatonin (Melatonin) 3 mg PO QHS PRN PRN PRN Reason: INSOMNIA Morphine Sulfate () 4 mg IV Q3H PRN PRN PRN Reason: Severe Pain (7-10/10) Nitroglycerin (Nitrostat) 0.4 mg SUBLINGUAL Q5M PRN PRN Reason: CARDIAC/CHEST PAIN Ondansetron HCl (Zofran) 4 mg IV Q8H PRN PRN PRN Reason: NAUSEA/VOMITING Oxycodone HCl (Oxyir) 10 mg PO Q4H PRN PRN PRN Reason: Moderate Pain (4-6/10) Pantoprazole Sodium (Protonix) 40 mg PO DAILY [facility] Promethazine HCl (Phenergan) 25 mg IM Q6H PRN PRN PRN Reason: Breakthrough Nausea/Vomiting Sertraline HCl (Zoloft) 150 mg PO DAILY [facility] Sodium Chloride () 5 - 15 ml IV UD PRN PRN Reason: SALINE FLUSH Code Visit OBSV E&M: 56455 Initial observation care L3
--- NOTE | 2019-04-29 08:45 | NURSING ---
PCU CP KITCARLOS ALBERTO
--- NOTE | 2019-04-29 10:02 | EKG12_ITS ---
Test Reason : CP ADMIT Blood Pressure : / mmHG Vent. Rate : 063 BPM Atrial Rate : 063 BPM P-R Int : 190 ms QRS Dur : 096 ms QT Int : 422 ms P-R-T Axes : 045 -38 -45 degrees QTc Int : 431 ms Normal sinus rhythm Left axis deviation Nonspecific T wave abnormality Abnormal ECG When compared with ECG of 29-APR-2019 07:36, MANUAL COMPARISON REQUIRED, DATA IS UNCONFIRMED Confirmed by MAUREEN BARRON, ERASMO ([id number]), manuscript editor JOSE J CARLSON ([id number]) on 05/01/2019 8:13:44 AM Referred By: MICHAEL Confirmed By:ERASMO REDDY MD
--- NOTE | 2019-04-29 10:02 | ECHOD_ITS ---
Reason For Study: CHEST PAIN Procedure This was a 2D Doppler, Color Flow transthoracic echocardiogram. Exam performed portable in patient room. Left Ventricle Mildly dilated left ventricle. The estimated ejection fraction is 65 %. Stage 1 diastolic dysfunction. No regional wall motion abnormalities noted. Right Ventricle Normal size and thickness. Normal systolic function. Atria Normal left atrium. Normal right atrium. Normal atrial septum. Mitral Valve The mitral valve is structurally normal. No prolapse or stenosis seen. Tricuspid Valve Normal tricuspid valve. Trivial tricuspid valve insufficiency. Right ventricular systolic pressure estimated to be 32 mmHg. Aortic Valve Normal aortic valve. Trisinus/trileaflet aortic valve. Pulmonic Valve Normal pulmonic valve. Trivial pulmonic valve insufficiency. Great Vessels Normal aortic root. Normal arch. Normal inferior vena cava. Inferior vena cava collapse with sniff. Pericardium/Pleural No pericardial effusion. MMode/2D Measurements & Calculations LVIDd: 5.6 cm IVSd: 0.93 cm Ao root diam: 3.4 cm LVIDs: 3.9 cm LVPWd: 0.92 cm RVDd: 3.7 cm FS: 31.2 % LAV(MOD-bp): 66.1 ml LVAd ap4: 33.1 cm2 SV(MOD-sp4): 66.7 ml LAV(MOD-bp) Indexed: 31.2 ml/m2 EDV(MOD-sp4): 109.5 ml LAV(MOD-sp2): 65.3 ml EDV(sp4-el): 113.6 ml LAV(MOD-sp4): 63.9 ml LVAs ap4: 18.6 cm2 ESV(MOD-sp4): 42.8 ml ESV(sp4-el): 42.9 ml EF(MOD-sp4): 60.9 % EF(sp4-el): 62.2 % SV(sp4-el): 70.7 ml LA A4 area: 20.4 cm2 LA dimension(2D): 4.2 cm RA A4 area: 10.0 cm2 Time Measurements MV dec time: 0.29 sec Doppler Measurements & Calculations MV E max eduardo: 72.9 cm/sec Ao V2 max: 154.4 cm/sec LV V1 max: 107.5 cm/sec MV A max eduardo: 95.2 cm/sec Ao max P.5 mmHg LV V1 max P.6 mmHg MV E/A: 0.77 TR max eduardo: 257.8 cm/sec TR max P.6 mmHg Interpretation Summary The estimated ejection fraction is 65 %. Stage 1 diastolic dysfunction. Mildly dilated left ventricle. Trivial tricuspid valve insufficiency. Right ventricular systolic pressure estimated to be 32 mmHg. There is no comparison study available. Ordering Physician: Jason Gray Referring Physician: BONI BUSH Performed By: Nicole Forbes, DARYL, RVT
--- NOTE | 2019-04-29 10:14 | CT_ITS ---
STUDY: CT BRAIN WITHOUT CONTRAST REASON FOR EXAM: Female, 58 years old. Recent fall. RADIATION DOSAGE (If Supplied By Facility): CTDIvol = ( 44.99 ) mGy, DLP = ( 745.49 ) mGycm TECHNIQUE: Transaxial CT imaging of the brain was performed without administration of intravenous contrast material. Individualized dose optimization techniques were used for this CT. COMPARISON: Comparison is made with prior study dated October 20, 2018. FINDINGS: Normal soft tissue structures. There is hyperostosis frontalis internus. Normal size ventricles and extra-axial spaces for the patient's age. Normal white matter tracts of the cerebral hemispheres. Normal basal ganglia and thalami. Normal brainstem. Normal cerebellum. There is no intracranial hemorrhage. There are no findings of an acute ischemic infarction. Normal visualized paranasal sinuses. CT/Brain/Head without Contrast IMPRESSION: Normal unenhanced CT scan of the brain. Electronically Signed: Ankur Ferrara, at 11:08 EDT , Service support ,
[2019-04-29] MEDS: Insulin Lispro 100 UNIT/ML INSULN.PEN SQ ×3 (11:20→21:56)
[2019-04-29 11:21] LABS: Bedside Glucose 298 mg/dL (70-110)
--- NOTE | 2019-04-29 11:29 | CASEMGMT ---
Per RN patient wanted advance directives. SW met with patient, introduced self and role at [facility]. SW asked patient if she would like to complete documents. She said she would like a copy of the documents and will take them home. SW asked her if she needed SW to explain them and she declined. SW told her if she changes her mind SW can assist with completing documents. Margie RAMIREZ MSW
[2019-04-29] MEDS: Hydroxychloroquine 200 MG Tablet PO (16:48)
[2019-04-29 16:55] LABS: Bedside Glucose 359 mg/dL (70-110)
[2019-04-29] MEDS: MELATONIN 3 MG TABLET PO (21:59)
[2019-04-30 00:21] LABS: Bedside Glucose 298 mg/dL (70-110)
[2019-04-30 03:00] VITALS: PULSE 55
[2019-04-30 03:35] VITALS: BP 101/38; PULSE 57; RESP 16; TEMP 36.7; O2SAT 95
[2019-04-30 05:20] VITALS: BP 96/34; PULSE 60; RESP 18; TEMP 36.7; O2SAT 97
[2019-04-30] MEDS: 0.9% Normal Saline 1,000 ML 150 ML IV (05:22)
[2019-04-30] MEDS: Pantoprazole Sodium 40 MG Tablet PO (05:24)
[2019-04-30 05:43] LABS: Absolute Neutrophil Count 1.7 X10^3/uL (2.0-7.7); Eosinophil# 0.08 X10^3/uL; Eosinophils% 2.6 % (0-5); Hematocrit 34.8 % (37-47); Hemoglobin 11.5 g/dl (12.0-15.0); Lymphocyte % 35.8 % (19-41); Mean Corpuscular Hgb 27.6 pg (27.0-32.0); Mean Corpuscular Volume 83.5 fL (81-99); Mean Platelet Vol. 9.9 fl (6.2-12.0); Monocyte# 0.15 X10^3/uL; Monocyte% 4.9 % (0-10); Neutrophil # 1.73 X10^3/uL (2.7-7.7); Neutrophil % 56.4 % (47-70); Platelet Count 82 K/mm3 (150-450); RBC Distribution Width CV 14.7 % (11.6-14.6); Red Blood Count 4.17 M/mm3 (4.2-5.4); White Blood Count 3.1 K/mm3 (4.4-11.0)
[2019-04-30 05:45] LABS: POSITIVE COUNT NO; POSITIVE DIFFERENTIAL NO; POSITIVE MORPHOLOGY NO
[2019-04-30 05:52] LABS: International Normalized Ratio 1.2; Partial Thromboplast Time 35.4 Seconds (24.1-36.2); Prothrombin Time (Protime)PT. 14.6 SECONDS (11.7-14.9)
--- NOTE | 2019-04-30 05:55 | EKG12_ITS ---
Test Reason : AM EKG Blood Pressure : / mmHG Vent. Rate : 054 BPM Atrial Rate : 054 BPM P-R Int : 200 ms QRS Dur : 094 ms QT Int : 476 ms P-R-T Axes : 053 -32 235 degrees QTc Int : 451 ms Sinus bradycardia Left axis deviation T wave abnormality, consider anterior ischemia Abnormal ECG When compared with ECG of 29-APR-2019 11:24, MANUAL COMPARISON REQUIRED, DATA IS UNCONFIRMED Confirmed by MAUREEN BARRON, ERASMO ([id number]), news editor JOSE J CARLSON ([id number]) on 05/01/2019 8:11:08 AM Referred By: DR JOHN Confirmed By:ERASMO REDDY MD
[2019-04-30 06:04] LABS: Anion Gap 8 (5-15); BUN 11 mg/dL (7-18); BUN/Creat Ratio 19.2 RATIO (10-20); Chloride 107 mmol/L (98-107); Creatinine, Serum 0.57 mg/dL (0.55-1.02); EST Glomerular Filtration Rate 115 mL/min (>60); Est Glom Filt Rate - Afr Amer 139 mL/min (>60); Estimated Creatinine Clearance 95.63 ml/min; Glucose 248 mg/dL (74-106); Potassium 4.1 mmol/L (3.5-5.1); Sodium Level 142 mmol/L (136-145)
[2019-04-30 07:00] LABS: Bedside Glucose 225 mg/dL (70-110)
[2019-04-30 09:20] VITALS: PULSE 88
[2019-04-30 09:42] VITALS: BP 121/47; PULSE 68; RESP 17; TEMP 36.9; O2SAT 95
[2019-04-30] MEDS: Empagliflozin 10 MG Tablet PO (09:48)
[2019-04-30] MEDS: hydroCHLOROthiazide 12.5mg 12.5 MG PO (09:48)
[2019-04-30] MEDS: Hydroxychloroquine 200 MG Tablet PO (09:48)
[2019-04-30] MEDS: Sertraline 50 MG Tablet 150 MG PO (09:48)
[2019-04-30] MEDS: 0.9% NaCl Peripheral Flush Adult/Peds IV (09:55)
[2019-04-30] MEDS: Lithium Carbonate 150 MG Capsule 450 MG PO (11:32)
[2019-04-30 11:39] VITALS: PULSE 61
[2019-04-30 11:40] LABS: Bedside Glucose 299 mg/dL (70-110)
--- NOTE | 2019-04-30 12:51 | STRESSREP_ITS ---
Stress Test Report Pharmacologic myocardial perfusion stress test. 58-year-old lady with a history of chest pain. Stress protocol: Resting EKG demonstrates sinus rhythm with a rate of 71 bpm T wave inversions noted in leads II, III and aVF. 0.4 mg of regadenoson was infused per usual protocol followed by rapid intravenous saline flush injection continuous EKG monitoring was performed. The maximum heart rate attained was 81 bpm which was 50% of maximum predicted heart rate. The workload was [address]-T wave changes were noted. The patient had previously attempted a [place] protocol where she exercised to 6 minutes and 20 seconds attaining 76% of maximum predicted heart rate at a workload of 7.1 metabolic equivalents. Due to not reaching target heart rate the test was changed to a pharmacologic stress test. Myocardial perfusion protocol. 14.6 mCi of technetium 99m sestamibi was injected at rest. 0.4 mg of regad enoson was infused per usual protocol. At peak infusion 44.3 mCi of technetium 99m sestamibi was injected stress images were obtained stress and rest images were reconstructed in comparing the short axis vertical long horizontal long axis. Gated images were also obtained. Perfusion SPECT analysis: Review of the stress images demonstrate normal uptake of tracer noted in all areas of the myocardium. The resting images similarly demonstrate normal uptake of tracer noted in all areas of myocardium. No areas of reversibility are noted suggest ischemia no previous infarct is noted. Gated SPECT analysis: The gated ejection fraction is noted to be 64%. Conclusion: Normal pharmacologic myocardial perfusion stress test. Preserved ejection fraction.
--- NOTE | 2019-04-30 13:02 | DCINST_ITS ---
- Discharge Diagnoses Current Active Problems: Current Active and Chronic Problems Chest pain (Acute) You will use the following diet at home:: No restrictions Instructions: ED Chest Pain NonCardiac Allergies/Adverse Reactions: Allergies No Known Allergies Allergy (Verified 11/24/18 10:25) Medications to take at Discharge Nitrostat 0.4 mg SL PRN PRN 03/27/15 Protonix 40 mg PO DAILY 03/27/15 Zoloft 150 mg PO DAILY 03/27/15 Hydroxychloroquine [Plaquenil] 200 mg PO BIDCM 10/20/18 [place] Carbonate [[place] Carbonate ER] 1 tab PO BID 11/24/18 Empagliflozin [Jardiance] 10 mg PO DAILY 04/29/19 Hydrochlorothiazide 12.5 mg PO DAILY 04/29/19 Primary Care Physician: Yandel Cabrera MD [Primary Care Provider] - Please follow up with your Primary Care Physician in: in 5-7 to arrange for outpatient EGD Test Results: Test results from this visit will be discussed in further detail at your follow- up appointment, if applicable.
--- NOTE | 2019-04-30 13:04 | DS.PCM_ITS ---
Discharge Date and Diagnosis - Problem List Patient Problems: Active and Suspected Problems Chest pain (Acute) Date of Admission: 04/29/19 Date of Discharge: 04/30/19 - Primary Discharge Diagnosis Active and Suspected Problems Chest pain (Acute) - Secondary Discharge Diagnosis Chronic Problems Hypertension (Chronic) GERD (gastroesophageal reflux disease) (Chronic) Bipolar disorder (Chronic) Diabetes mellitus, type II (Chronic) Morbid obesity with BMI of 45.0-49.9, adult (Chronic) Hospital Course and Treatment Imaging Results: 04/30/19 05:55 Nuclear Stress Test - Chemical [NM] Routine Operations: None Summary of Care Provided: The patient is a 58 year old F past medical history segment for lupus and psoriatic arthritis, autoimmune hepatitis with subsequent cirrhosis, hypertension diabetes mellitus type 2 who presented with chest discomfort 1. Chest discomfort do suspect significant GERD however given patient risk factors including hypertension diabetes as well as lupus patient was admitted to monitored bed did rule out NV with serial cardiac enzymes subsequently unde rwent a nuclear stress test which was negative for stress-induced ischemia. 2. GERD with significant symptoms patient is on PPI did continue; did discuss with patient to follow-up with PCP for EGD following her discharge. 3. SLE: Patient is on Plaquenil home dose continued 4. Autoimmune hepatitis with subsequent cirrhosis of the liver 5. Psoriatic arthritis plan symptoms well controlled 6. Thrombocytopenia attributed to patient's cirrhosis of the liver; no evidence of bleeding we will continue with monitoring 7. Bipolar disorder patient is on lithium 8. Depression with anxiety patient is on Zoloft 9. Diabetes mellitus type II held patient oral agents placed on Accu-Cheks before meals and at bedtime with sliding scale coverage 10. Hypertension-blood pressure controlled, home medications continued with dose adjustment as needed 11. DVT prophylaxis avoided the use of chemoprophylaxis in view of patient low platelet count Patient Problems: Active and Suspected Problems Chest pain (Acute) Objective: GENERAL: cooperative HEENT: Atraumatic; moist oral mucosa EYES; Anicteric, Normal Conjunctiva NECK; supple, normal thyroid, no distended JVD. RESPIRATORY: Diminished to auscultation bilaterally, CARDIOVASCULAR: Regular S1 S2, no audible murmurs GI: soft, non-tender, normoactive bowel sounds, : No Renal angle tenderness; EXTREMITIES: No edema, no clubbing, no cyanosis. MUSCULOSKELETAL: No Joint Tenderness; no muscle waisting NEURO: Awake; no lateralizing signs. SKIN: No Rash PSYCH; Normal affect - Physical Exam Vital Signs Temp Pulse Resp BP Pulse Ox 98.5 F 61 17 121/47 H 95 04/30/19 09:42 04/30/19 11:39 04/30/19 09:42 04/30/19 09:42 04/30/19 09:42 Oxygen Flow Rate (L/min) 2 Oxygen Delivery Method Room Air Weight: 105.9 kg Body Mass Index (BMI) 39.1 Intake and Output for Last 24 Hours 04/28/19 04/29/19 04/30/19 23:59 23:59 23:59 Intake Total 1558 / 1558 1973 Balance 1558 / 1558 1973 Laboratory Tests Past 24 Hrs 04/29/19 04/30/19 04/30/19 13:56 05:20 05:20 WBC 3.1 L RBC 4.17 L Hgb 11.5 L Hct 34.8 L MCV 83.5 MCH 27.6 MCHC 33.0 RDW 14.7 H RDW Differential 44.0 H Plt Count 82 L MPV 9.9 Immature Gran % (Auto) 0.300 Neut % (Auto) 56.4 Lymph % (Auto) 35.8 Elk % (Auto) 4.9 Eos % (Auto) 2.6 Baso % (Auto) 0.0 Absolute Neuts (auto) 1.7 L Absolute Lymphs (auto) 1.10 Total Counted Not Reportable PT INR APTT Sodium 142 Potassium 4.1 Chloride 107 Carbon Dioxide 27.0 Anion Gap 8 BUN 11 Creatinine 0.57 Estim Creat Clear Calc 95.63 Est GFR (MDRD) Af Amer 139 Est GFR (MDRD) Non-Af 115 BUN/Creatinine Ratio 19.2 Glucose 248 H Calcium 9.0 Troponin I < 0.015 04/30/19 05:20 WBC RBC Hgb Hct MCV MCH MCHC RDW RDW Differential Plt Count MPV Immature Gran % (Auto) Neut % (Auto) Lymph % (Auto) Elk % (Auto) Eos % (Auto) Baso % (Auto) Absolute Neuts (auto) Absolute Lymphs (auto) Total Counted PT 14.6 INR 1.2 APTT 35.4 Sodium Potassium Chloride Carbon Dioxide Anion Gap BUN Creatinine Estim Creat Clear Calc Est GFR (MDRD) Af Amer Est GFR (MDRD) Non-Af BUN/Creatinine Ratio Glucose Calcium Troponin I POC Glucose 04/30/19 04/30/19 04/29/19 11:30 06:26 21:55 POC Glucose 299 H 225 H 298 H 04/29/19 16:45 POC Glucose 359 H Discharge Diet: No Restrictions Home Medications: Medications to take at Discharge Nitrostat 0.4 mg SL PRN PRN 03/27/15 Protonix 40 mg PO DAILY 03/27/15 Zoloft 150 mg PO DAILY 03/27/15 Hydroxychloroquine [Plaquenil] 200 mg PO BIDCM 10/20/18 [place] Carbonate [[place] Carbonate ER] 1 tab PO BID 11/24/18 Empagliflozin [Jardiance] 10 mg PO DAILY 04/29/19 Hydrochlorothiazide 12.5 mg PO DAILY 04/29/19 Primary Care Physician: Yandel Cabrera MD [Primary Care Provider] - Please follow up with your Primary Care Physician in: in 5-7 to arrange for outpatient EGD Patient Instructions: ED Chest Pain NonCardiac Disposition: Home Minutes spent on discharge:: 35 Patient Condition:: Stable Medical Necessity - Tobacco Use Smoking Status: Former smoker Meaningful Use Info Meaningful Use Diagnoses (Choose all that apply): None applicable Code Visit OBSV E&M: 79000 Observation care discharge
== END 2019-04-30 13:02 | disposition home or self-care (01) ==
LOC: ED 08:20 → PCU 09:00
PROVIDERS: Admitting Provider Internal Medicine; Emergency Provider Emergency Medicine; Family Provider Family Medicine; PCP Family Medicine; Visit Provider Internal Medicine
DX: R07.89 Other chest pain (principal); E11.9 Type 2 diabetes mellitus without complications; I10 Essential (primary) hypertension; K21.9 Gastro-esophageal reflux disease without esophagitis; L40.50 Arthropathic psoriasis, unspecified; M32.9 Systemic lupus erythematosus, unspecified; E11.65 Type 2 diabetes mellitus with hyperglycemia; K74.60 Unspecified cirrhosis of liver; F31.9 Bipolar disorder, unspecified; K75.4 Autoimmune hepatitis; D69.6 Thrombocytopenia, unspecified; E66.01 Morbid (severe) obesity due to excess calories; Z79.899 Other long term (current) drug therapy; Z68.38 Body mass index [BMI] 38.0-38.9, adult; Z71.3 Dietary counseling and surveillance; Z87.891 Personal history of nicotine dependence; F41.9 Anxiety disorder, unspecified
CPT/HCPCS: 36415; 70450; 71045; 78452; 80048; 82962; 84484; 85025; 85610; 85730; 93005; 93017; 93306; 96360; 96361; 99218; 99285; A9500; J7030; Q9957; A4216; G0378; J2785

== ENCOUNTER → 2019-05-07 | Outpatient (CLI) | payer OTHER, SELFPAY ==
[2019-04-29 09:51] VITALS: BMI 39.1
--- NOTE | 2019-05-07 10:10 | RAD_ITS ---
HISTORY:psoriatic arthropathyfibromyalgia psoriatic arthropathyfibromyalgia EXAM: XR Chest 2 Views: COMPARISON: April 29, 2019 FINDINGS: # of images incl. paperwork: 2 LINES/DEVICES: None. LUNGS: Radiographically clear. No consolidation, edema or effusion. No pneumothorax. MEDIASTINUM AND CARDIOVASCULAR STRUCTURES: Cardiac silhouette not enlarged. BONES AND SOFT TISSUES: Unremarkable. RAD/Chest PA and Lateral IMPRESSION: No radiographic evidence of acute cardiopulmonary disease. at 1944 Reported and signed by: Zita Bailon DO Electronically Signed: Zita Bailon DO at 19:42 EDT Tel , Service support ,
[2019-05-11 03:06] LABS: QNTFERON TB Mitogen Value > 10.00 IU/mL (.); QNTFERON TB Nil Value 0.03 IU/mL (.); QNTFERON TB1+ Ag Value 0.08 IU/mL (.); QNTFERON TB2+ Ag Value 0.07 IU/mL (.)
[2019-05-11 11:10] LABS: QNTIFERON TB Positive Criteria Negative (Negative)
== END | disposition home or self-care (01) ==
LOC: MTLAB 10:08
PROVIDERS: Family Provider Family Medicine; PCP Family Medicine; Referring Provider Internal Medicine Rheumatology; Visit Provider Internal Medicine Rheumatology
DX: L40.59 Other psoriatic arthropathy (principal); M79.7 Fibromyalgia; R76.8 Other specified abnormal immunological findings in serum; L40.8 Other psoriasis; M25.511 Pain in right shoulder
CPT/HCPCS: 36415; 71046; 86480

== ENCOUNTER → 2019-06-26 | Outpatient (CLI) | payer OTHER, SELFPAY ==
[2019-04-29 09:51] VITALS: BMI 39.1
[2019-06-26 17:49] LABS: Anion Gap 11 (5-15); BUN 10 mg/dL (7-18); BUN/Creat Ratio 10.6 RATIO (10-20); Calcium,Total 9.6 mg/dL (8.5-10.1); Chloride 100 mmol/L (98-107); Creatinine, Serum 0.94 mg/dL (0.55-1.02); EST Glomerular Filtration Rate 64 mL/min (>60); Est Glom Filt Rate - Afr Amer 78 mL/min (>60); Glucose 298 mg/dL (74-106); Potassium 2.9 mmol/L (3.5-5.1); Sodium Level 137 mmol/L (136-145); Thyroid Stim Hormone (TSH) 1.77 uIU/mL (0.358-3.74)
== END | disposition home or self-care (01) ==
LOC: MTLAB 16:17
PROVIDERS: Family Provider Family Medicine; PCP Family Medicine; Referring Provider Psychiatry & Neurology Psychiatry; Visit Provider Psychiatry & Neurology Psychiatry
DX: F31.9 Bipolar disorder, unspecified (principal); Z79.899 Other long term (current) drug therapy
CPT/HCPCS: 36415; 80048; 80178; 84443

== ENCOUNTER → 2019-07-10 | Outpatient (CLI) | payer OTHER, SELFPAY ==
[2019-04-29 09:51] VITALS: BMI 39.1
[2019-07-10 17:54] LABS: Anion Gap 8 (5-15); BUN 13 mg/dL (7-18); Calcium,Total 9.5 mg/dL (8.5-10.1); Chloride 107 mmol/L (98-107); Creatinine, Serum 0.72 mg/dL (0.55-1.02); EST Glomerular Filtration Rate 88 mL/min (>60); Est Glom Filt Rate - Afr Amer 106 mL/min (>60); Glucose 131 mg/dL (74-106); Potassium 3.8 mmol/L (3.5-5.1); Sodium Level 140 mmol/L (136-145)
== END | disposition home or self-care (01) ==
LOC: MTLAB 16:38
PROVIDERS: Family Provider Family Medicine; PCP Family Medicine; Referring Provider Psychiatry & Neurology Psychiatry; Visit Provider Psychiatry & Neurology Psychiatry
DX: E87.6 Hypokalemia (principal); Z79.899 Other long term (current) drug therapy
CPT/HCPCS: 36415; 80048; 80178

== ENCOUNTER → 2019-10-14 | Outpatient (CLI) | payer OTHER, SELFPAY ==
[2019-04-29 09:51] VITALS: BMI 39.1
[2019-10-14 09:52] LABS: Absolute Lymphocyte Count 0.94 X10^3/uL (0.83-4.51); Absolute Neutrophil Count 2.7 X10^3/uL (2.0-7.7); Basophil# 0.02 X10^3/uL; Basophil% 0.5 % (0-1); Eosinophil# 0.06 X10^3/uL; Eosinophils% 1.5 % (0-5); Hematocrit 39.6 % (37-47); Hemoglobin 12.6 g/dL (12.0-15.0); Lymphocyte # 0.94 X10^3/ul (4.0); Lymphocyte % 23.7 % (19-41); Mean Corp Hgb Conc 31.8 g/dL (32-36); Mean Corpuscular Hgb 28.6 pg (27.0-32.0); Mean Corpuscular Volume 89.8 fL (81-99); Mean Platelet Vol. 10.2 fl (6.2-12.0); Monocyte# 0.23 X10^3/uL; Monocyte% 5.8 % (0-10); NRBC Flagged by Analyzer 0 % (0-5); Platelet Count 108 K/mm3 (150-450); RBC Distribution Width CV 13.9 % (11.6-14.6); RBC Distribution Width SD 45.5 fl (35.1-43.9); Red Blood Count 4.41 M/mm3 (4.2-5.4)
[2019-10-14 10:15] LABS: ALB/GLOB Ratio 1.1 RATIO (0.9-2.4); AST(SGOT) 20 U/L (15-37); Alanine Aminotransfer ALT/SGPT 23 U/L (13-56); Albumin, Serum 4.2 g/dL (3.2-5.0); Alkaline Phosphatase 108 U/L (45-117); Anion Gap 8 (5-15); BUN 11 mg/dL (7-18); BUN/Creat Ratio 15.3 RATIO (10-20); Calcium,Total 9.9 mg/dL (8.5-10.1); Chloride 104 mmol/L (98-107); Creatinine, Serum 0.72 mg/dL (0.55-1.02); EST Glomerular Filtration Rate 88 mL/min (>60); Est Glom Filt Rate - Afr Amer 107 mL/min (>60); Globulin 3.7 g/dL (2.2-4.2); Glucose 177 mg/dL (74-106); Potassium 4.1 mmol/L (3.5-5.1); Protein, Total 7.9 g/dL (6.4-8.2); Sodium Level 138 mmol/L (136-145)
== END | disposition home or self-care (01) ==
LOC: MTLAB 08:39
PROVIDERS: Family Provider Family Medicine; PCP Family Medicine; Referring Provider Internal Medicine Rheumatology; Visit Provider Internal Medicine Rheumatology
DX: L40.59 Other psoriatic arthropathy (principal); M79.7 Fibromyalgia; R76.8 Other specified abnormal immunological findings in serum; L40.8 Other psoriasis; M21.40 Flat foot [pes planus] (acquired), unspecified foot
CPT/HCPCS: 36415; 80053; 85025

== ENCOUNTER → 2020-01-14 | Outpatient (CLI) | payer OTHER, SELFPAY ==
[2019-04-29 09:51] VITALS: BMI 39.1
[2020-01-14 18:00] LABS: Anion Gap 7 (5-15); BUN 10 mg/dL (7-18); BUN/Creat Ratio 12.5 RATIO (10-20); Calcium,Total 9.9 mg/dL (8.5-10.1); Chloride 103 mmol/L (98-107); EST Glomerular Filtration Rate 78 mL/min (>60); Est Glom Filt Rate - Afr Amer 94 mL/min (>60); Glucose 182 mg/dL (74-106); Potassium 3.6 mmol/L (3.5-5.1); Sodium Level 138 mmol/L (136-145); Thyroid Stim Hormone (TSH) 1.69 uIU/mL (0.358-3.74)
== END | disposition home or self-care (01) ==
PROVIDERS: PCP Family Medicine; Referring Provider Psychiatry & Neurology Psychiatry; Visit Provider Psychiatry & Neurology Psychiatry
DX: Z79.899 Other long term (current) drug therapy (principal)
CPT/HCPCS: 36415; 80048; 80178; 84443

== ENCOUNTER → 2020-08-06 | Outpatient (CLI) | payer OTHER, SELFPAY ==
[2019-04-29 09:51] VITALS: BMI 39.1
[2020-08-06 11:25] LABS: Absolute Lymphocyte Count 0.67 X10^3/uL (0.83-4.51); Absolute Neutrophil Count 1.8 X10^3/uL (2.0-7.7); Basophil# 0.01 X10^3/uL; Basophil% 0.4 % (0-1); Eosinophil# 0.06 X10^3/uL; Eosinophils% 2.2 % (0-5); Hematocrit 36.7 % (37-47); Hemoglobin 11.4 g/dL (12.0-15.0); Lymphocyte # 0.67 X10^3/ul (4.0); Lymphocyte % 24.9 % (19-41); Mean Corp Hgb Conc 31.1 g/dL (32-36); Mean Corpuscular Hgb 27.7 pg (27.0-32.0); Mean Corpuscular Volume 89.3 fL (81-99); Mean Platelet Vol. 9.9 fl (6.2-12.0); Monocyte# 0.14 X10^3/uL; Monocyte% 5.2 % (0-10); NRBC Flagged by Analyzer 0 % (0-5); Neutrophil % 66.9 % (47-70); POSITIVE COUNT YES; Platelet Count 93 K/mm3 (150-450); RBC Distribution Width CV 15.5 % (11.6-14.6); RBC Distribution Width SD 50.4 fl (35.1-43.9); Red Blood Count 4.11 M/mm3 (4.2-5.4); White Blood Count 2.7 K/mm3 (4.4-11.0)
[2020-08-06 11:36] LABS: International Normalized Ratio 1.1; Prothrombin Time (Protime)PT. 13.5 SECONDS (11.7-14.9)
[2020-08-06 11:37] LABS: Partial Thromboplast Time 30.6 Seconds (24.1-36.2)
[2020-08-06 12:04] LABS: ALB/GLOB Ratio 1.2 RATIO (0.9-2.4); AST(SGOT) 27 U/L (15-37); Alanine Aminotransfer ALT/SGPT 32 U/L (13-56); Albumin, Serum 4.2 g/dL (3.2-5.0); Alkaline Phosphatase 105 U/L (45-117); Anion Gap 7 (5-15); BUN 12 mg/dL (7-18); BUN/Creat Ratio 16.7 RATIO (10-20); Calcium,Total 9.3 mg/dL (8.5-10.1); Chloride 105 mmol/L (98-107); Creatinine, Serum 0.72 mg/dL (0.55-1.02); EST Glomerular Filtration Rate 88 mL/min (>60); Est Glom Filt Rate - Afr Amer 106 mL/min (>60); Globulin 3.6 g/dL (2.2-4.2); Glucose 124 mg/dL (74-106); Potassium 3.8 mmol/L (3.5-5.1); Protein, Total 7.8 g/dL (6.4-8.2); Sodium Level 141 mmol/L (136-145)
[2020-08-08 00:29] LABS: Hepatitis A AB, Total Positive (Negative)
[2020-08-08 09:12] LABS: Hepatitis B Surface Antibody Non-Reactive; Hepatitis B Surface Antigen Non-Reactive (Nonreactive)
== END | disposition home or self-care (01) ==
LOC: LAB 10:39
PROVIDERS: PCP Family Medicine; Referring Provider Psychiatry & Neurology Psychiatry; Visit Provider Psychiatry & Neurology Psychiatry
DX: L40.59 Other psoriatic arthropathy (principal); M79.7 Fibromyalgia; R76.8 Other specified abnormal immunological findings in serum; L40.8 Other psoriasis; M21.40 Flat foot [pes planus] (acquired), unspecified foot; K21.9 Gastro-esophageal reflux disease without esophagitis; I10 Essential (primary) hypertension; E11.9 Type 2 diabetes mellitus without complications; I48.0 Paroxysmal atrial fibrillation; F31.9 Bipolar disorder, unspecified; N39.46 Mixed incontinence; K74.60 Unspecified cirrhosis of liver; K75.81 Nonalcoholic steatohepatitis (NASH); E66.01 Morbid (severe) obesity due to excess calories; L40.50 Arthropathic psoriasis, unspecified; Z51.81 Encounter for therapeutic drug level monitoring; Z86.010 Personal history of colon polyps
CPT/HCPCS: 36415; 80053; 80178; 84443; 85025; 85610; 85730; 86706; 86708; 87340

== ENCOUNTER → 2020-10-12 13:22 | Outpatient (CLI) | payer OTHER, SELFPAY ==
[2019-04-29 09:51] VITALS: BMI 39.1
[2020-10-12 15:17] LABS: Absolute Lymphocyte Count 0.95 X10^3/uL (0.83-4.51); Absolute Neutrophil Count 3.3 X10^3/uL (2.0-7.7); Basophil# 0.01 X10^3/uL; Basophil% 0.2 % (0-1); Eosinophils% 2.1 % (0-5); Hematocrit 38.5 % (37-47); Lymphocyte # 0.95 X10^3/ul (4.0); Lymphocyte % 20.3 % (19-41); Mean Corp Hgb Conc 31.2 g/dL (32-36); Mean Corpuscular Hgb 27.5 pg (27.0-32.0); Mean Corpuscular Volume 88.3 fL (81-99); Mean Platelet Vol. 10.3 fl (6.2-12.0); Monocyte% 6.4 % (0-10); NRBC Flagged by Analyzer 0 % (0-5); Neutrophil % 70.8 % (47-70); Platelet Count 104 K/mm3 (150-450); RBC Distribution Width CV 14.2 % (11.6-14.6); Red Blood Count 4.36 M/mm3 (4.2-5.4); White Blood Count 4.7 K/mm3 (4.4-11.0)
== END ==
PROVIDERS: PCP Family Medicine; Referring Provider Internal Medicine Rheumatology; Visit Provider Internal Medicine Rheumatology
DX: L40.59 Other psoriatic arthropathy (principal); M79.7 Fibromyalgia; R76.8 Other specified abnormal immunological findings in serum; L40.8 Other psoriasis; M21.40 Flat foot [pes planus] (acquired), unspecified foot; K21.9 Gastro-esophageal reflux disease without esophagitis; K76.0 Fatty (change of) liver, not elsewhere classified; I10 Essential (primary) hypertension; E11.9 Type 2 diabetes mellitus without complications; I48.0 Paroxysmal atrial fibrillation; F31.9 Bipolar disorder, unspecified; N39.46 Mixed incontinence
CPT/HCPCS: 36415; 85025

== ENCOUNTER 2020-12-04 14:56 | Emergency (ER) | payer OTHER, SELFPAY ==
[2019-04-29 09:51] VITALS: BMI 39.1
[2020-12-04 14:56] VITALS: BP 155/74; PULSE 89; RESP 18; TEMP 35.6; O2SAT 96; BMI 38.1
--- NOTE | 2020-12-04 15:06 | EKG12_ITS ---
Test Reason : Blood Pressure : / mmHG Vent. Rate : 082 BPM Atrial Rate : 082 BPM P-R Int : 176 ms QRS Dur : 100 ms QT Int : 324 ms P-R-T Axes : 053 -42 123 degrees QTc Int : 378 ms Normal sinus rhythm Left axis deviation Possible Anterior infarct , age undetermined T wave abnormality, consider lateral ischemia Abnormal ECG Confirmed by MAUREEN BARRON, ERASMO ([id number]), slot editor ARACELI COSBY ([id number]) on 12/05/2020 10:34:27 AM Referred By: BRAYDON Confirmed By:ERASMO REDDY MD
--- NOTE | 2020-12-04 15:06 | RAD_ITS ---
STUDY: X-RAY CHEST REASON FOR EXAM: Female, 60 years old. chest pain for 1 week. TECHNIQUE: AP COMPARISON: May 07 2019 10:11am FINDINGS: The lungs are clear and expanded. There is no demonstrated pleural abnormality. Normal size heart. Normal mediastinum and stacy. Normal visualized pulmonary arteries. Normal visualized aortic arch and descending thoracic aorta. There are diffuse degenerative changes of the visualized thoracic spine. Normal visualized ribs, clavicles, and shoulders. There is no demonstrated abnormality of the visualized soft tissue structures of the upper abdomen. RAD/Chest 1 View (Portable) IMPRESSION: Stable, nonacute portable x-ray examination of the chest. Electronically Signed: Rigo Blas MD ([place]) at 15:34 EST , Service support ,
[2020-12-04 15:18] VITALS: O2SAT 93
[2020-12-04 15:18] LABS: Absolute Lymphocyte Count 1.03 X10^3/uL (0.83-4.51); Absolute Neutrophil Count 3.2 X10^3/uL (2.0-7.7); Basophil# 0.01 X10^3/uL; Basophil% 0.2 % (0-1); Eosinophil# 0.08 X10^3/uL; Eosinophils% 1.8 % (0-5); Hematocrit 37.5 % (37-47); Hemoglobin 11.9 g/dL (12.0-15.0); Lymphocyte # 1.03 X10^3/ul (4.0); Lymphocyte % 22.6 % (19-41); Mean Corp Hgb Conc 31.7 g/dL (32-36); Mean Corpuscular Hgb 26.9 pg (27.0-32.0); Mean Corpuscular Volume 84.8 fL (81-99); Mean Platelet Vol. 9.7 fl (6.2-12.0); Monocyte# 0.26 X10^3/uL; Monocyte% 5.7 % (0-10); NRBC Flagged by Analyzer 0 % (0-5); Neutrophil # 3.15 X10^3/uL (2.7-7.7); Platelet Count 103 K/mm3 (150-450); RBC Distribution Width CV 14.4 % (11.6-14.6); RBC Distribution Width SD 44.1 fl (35.1-43.9); Red Blood Count 4.42 M/mm3 (4.2-5.4); White Blood Count 4.6 K/mm3 (4.4-11.0)
[2020-12-04] MEDS: Aspirin 81 MG TAB.CHEW 324 MG PO (15:30)
[2020-12-04 15:36] LABS: Anion Gap 10 (5-15); BUN 12 mg/dL (7-18); BUN/Creat Ratio 14.1 RATIO (10-20); Calcium,Total 9.4 mg/dL (8.5-10.1); Chloride 104 mmol/L (98-107); Creatinine, Serum 0.85 mg/dL (0.55-1.02); EST Glomerular Filtration Rate 72 mL/min (>60); Est Glom Filt Rate - Afr Amer 87 mL/min (>60); Estimated Creatinine Clearance 62.54 ml/min; Glucose 189 mg/dL (74-106); Potassium 3.5 mmol/L (3.5-5.1); Sodium Level 138 mmol/L (136-145)
--- NOTE | 2020-12-04 15:56 | ED.VISSUMM ---
- ER Visit Summary Date of Service: 12/04/20 Chief Complaint: Chest pain History of Present Illness: The patient is a [address] Cabrera. She reports that she has chest pain that began approximately week ago. Is an intermittent pain that lasts hours. Its been constant for the past 8 hours. She describes it as a heaviness. He stated 10 at worst and 6 out of 10 currently. Is worsened by touching it or bending over. There is no change with breathing or exertion. It is relieved by when I shift where I am sitting. She denies any radiation to her jaw or shoulders. She denies nausea, vomiting, diaphoresis, shortness of breath. Patient denies any recent injury. No fall, MVA, or change in activity. She reports she had similar symptoms previously with pleurisy. She denies fever, chills, or cough. She has not had sick contacts. She does wear a mask. Physical Examination: Vitals: Stable. Afebrile. General: Well-nourished and well-developed. Head: Normocephalic atraumatic. Neck: Supple, no lymphadenopathy. No JVD. Nontender. Cardiovascular: Regular rate and rhythm. No murmurs. Respiratory: No respiratory distress. Clear to auscultation bilaterally. Pain is reproduced by palpation of the left costochondral margin and just inferior to her left breast. Abdominal: Soft, nontender, nondistended, normal bowel sounds. No guarding, rebound, or peritoneal signs. Back: Nontender. Extremities: Nontender, no edema. Skin: Right lower abdomen there are 2 ulcers. One is approximately 2 cm in diameter and the other is approximately 1/2 cm in diameter. There is no surrounding erythema, induration, or fluctuance. They are nontender. Neurologic: Alert and oriented ?3. Cranial nerves II through XII are intact. Normal strength and sensation. Psych: Normal affect. Test Results: EKG is sinus at 82. She has Q waves in leads III and aVF. T wave inversions in leads I and aVL. Nonspecific ST changes. However, this is unchanged from April 2019. Troponin is negative despite 8 hours of constant pain. [place] is 0.8. Chem-7 shows a glucose 199. CBC shows a hemoglobin of 11.9 platelets 103. Her platelets have been 85?1 31 since 2018. Clinical Impression(s) from Imaging Studies Chest X-Ray 12/04/20 15:06 IMPRESSION: Stable, nonacute portable x-ray examination of the chest. Electronically Signed: Rigo Blas MD ([place]) at 15:34 EST , Service support , Emergency Department Course and Treatment: Patient was given aspirin p.o. she refused pain medications and is resting comfortably. Treatment Plan: I had a prolonged discussion with the patient about the ulcers on her abdomen. She reports that she does not want to go to the wound clinic and they are much improved. Her chest pain is very atypical. It is reproduced with palpation and movement. I suspect that this is musculoskeletal in etiology. She is instructed to use warm compresses and Tylenol and/or ibuprofen for pain. Follow-up with her primary care physician in 3 to 5 days for another exam. Return to the emergency department for any worsening symptoms. Disposition: To home in improved and stable condition. Impression: 1. Atypical chest pain. 2. Superficial ulcers to abdominal wall. This note was generated with [employer] dictation software. It may contain incorrect words, spelling, and punctuation that were not noted in review of the chart prior to signing ED Disposition - Plan for ED Patient: Instructions: ED Strain Chest Wall Referrals: Yandel Cabrera MD [Primary Care Provider] - 3-5 Days
[2020-12-04 16:16] VITALS: BP 115/58; PULSE 81; RESP 20; O2SAT 95
== END 2020-12-04 16:17 | disposition home or self-care (01) ==
LOC: ED 15:37
PROVIDERS: Emergency Provider Emergency Medicine; PCP Family Medicine
DX: R07.89 Other chest pain (principal); L98.499 Non-pressure chronic ulcer of skin of other sites with unspecified severity; K21.9 Gastro-esophageal reflux disease without esophagitis; E11.9 Type 2 diabetes mellitus without complications; I10 Essential (primary) hypertension
CPT/HCPCS: 71045; 80048; 80178; 84484; 85025; 93005; 99285; A4216

== ENCOUNTER → 2021-03-15 15:28 | Outpatient (CLI) | payer OTHER, SELFPAY ==
[2021-03-15 17:39] LABS: Absolute Lymphocyte Count 0.83 X10^3/uL (0.83-4.51); Absolute Neutrophil Count 2.7 X10^3/uL (2.0-7.7); Basophil# 0.01 X10^3/uL; Basophil% 0.3 % (0-1); Eosinophil# 0.06 X10^3/uL; Eosinophils% 1.6 % (0-5); Hematocrit 36.3 % (37-47); Lymphocyte # 0.83 X10^3/ul (0.83-4.51); Lymphocyte % 21.9 % (19-41); Mean Corp Hgb Conc 30.3 g/dL (32-36); Mean Corpuscular Volume 85.8 fL (81-99); Mean Platelet Vol. 10.2 fl (6.2-12.0); Monocyte# 0.23 X10^3/uL; Monocyte% 6.1 % (0-10); NRBC Flagged by Analyzer 0 % (0-5); Neutrophil # 2.65 X10^3/uL (2.7-7.7); Neutrophil % 69.8 % (47-70); Platelet Count 111 K/mm3 (150-450); RBC Distribution Width CV 15.1 % (11.6-14.6); RBC Distribution Width SD 47.2 fl (35.1-43.9); Red Blood Count 4.23 M/mm3 (4.2-5.4); White Blood Count 3.8 K/mm3 (4.4-11.0)
[2021-03-15 18:05] LABS: Anion Gap 5 (5-15); BUN 14 mg/dL (7-18); BUN/Creat Ratio 20.7 RATIO (10-20); Calcium,Total 9.5 mg/dL (8.5-10.1); Chloride 107 mmol/L (98-107); Creatinine, Serum 0.68 mg/dL (0.55-1.02); EST Glomerular Filtration Rate 94 mL/min (>60); Est Glom Filt Rate - Afr Amer 114 mL/min (>60); Glucose 147 mg/dL (74-106); Potassium 4.3 mmol/L (3.5-5.1); Sodium Level 139 mmol/L (136-145); Thyroid Stim Hormone (TSH) 0.95 uIU/mL (0.358-3.74)
== END ==
PROVIDERS: PCP Family Medicine; Referring Provider Internal Medicine Rheumatology; Visit Provider Internal Medicine Rheumatology
DX: L40.59 Other psoriatic arthropathy (principal); M79.7 Fibromyalgia; R76.8 Other specified abnormal immunological findings in serum; L40.8 Other psoriasis; M21.40 Flat foot [pes planus] (acquired), unspecified foot; K21.9 Gastro-esophageal reflux disease without esophagitis; K76.0 Fatty (change of) liver, not elsewhere classified; Z79.899 Other long term (current) drug therapy
CPT/HCPCS: 36415; 80048; 80178; 84443; 85025

== ENCOUNTER 2021-04-18 14:49 | Outpatient (RCR) | payer OTHER, SELFPAY ==
[2021-04-18 15:06] VITALS: BP 137/63; PULSE 72; RESP 18; TEMP 37.3; BMI 37.4
--- NOTE | 2021-04-18 16:54 | PN.PCM_ITS ---
History of Present Illness Date of Service: 04/18/21 Chief Complaint: non-healing wound of the abdominal wall following Cellulitis of the abd wall. Subjective Subjective Hamzah had cellulitis of the abd wall about 8 weeks ago and although the infection has resolved the wound is still open......it is smaller but still open. I can not find any cultures of the wound in the EMR. She is a pt of Dr. Cabrera so she may have had cultures at [facility]. She denies ever having MRSA. She has had other episodes of cellulitis on the abd wall in the past. She is diabetic and tells me her last HGBA1C was 7.5.....down from 10 last year. She is not a smoker. She has been dressing the wound with Bactroban and covering with a bandaid. Sometimes she sprays it with peroxide. PMH is + for bipolar disorder, diabetes mellitus type 2, hyperlipidemia, fatty liver with elevated transaminases, GERD, hypertension, morbid obesity, obstructive sleep apnea, paroxysmal atrial fibrillation, colon polyps tobacco dependence in remission and a CVA. Past surgical history is significant for appendectomy right foot surgery, tubal ligation, cholecystectomy, total abdominal hysterectomy, bilateral hip replacements and a heart catheterization. She was referred to the [facility] by Dr. Cabrera for tx of non-healing wound. I reviewed the last progress note sent over by Dr. Cabrera. Objective Data Objective Data Vital Signs: Vital Signs Temp Pulse Resp BP 99.1 F 72 18 137/63 H 04/18/21 15:06 04/18/21 15:06 04/18/21 15:06 04/18/21 15:06 Weight: 224 lb 13.367 oz Body Mass Index (BMI) 37.4 Charges/Coding Procedures Integumentary 111xxx-113xx: 68037 Abby subq tissue 20 sq cm/< Physical Exam Const alert, oriented x3, no apparent distress and well nourished General Appearance: cooperative and well developed Resp normal respiratory effort Resp Narrative: not tachypneic and no conversational dyspnea GI normal to inspection, nondistended, normoactive bowel sounds GI Narrative: no guarding with palpation. Palpation: soft Skin Wounds: wounds noted Wound Narrative: There is a non-healing wound present in the RLQ. The dermis is exposed. There is no erythema, increased warmth to touch and no purulent DC. There is no odor. The surface of the wound was debrided and then irrigated and then a swab was take for aerobic culture. the wound is 50% granulation tissue and 50% slough. there is serosanguineous discharge. Psych affect normal Appearance: grossly normal and well kempt Debridement Note Debridement Note Post-Debridement Measurements and Additional Note: Post-Debridement Measurements/Treatment OLE - Nurse 1 - General Ulcer Assessment Start: 04/18/21 14:53 Freq: Status: Active Protocol: ZOILA Activity Type Activity Date Activity User E-Sign Co-Sign Detail Recorded Client Recorded Date Recorded By Document 04/18/21 15:06 DL [id number] 04/18/21 15:22 DL 04/18/21 15:06 - Today's Visit Information Type of service Initial Visit Arrival Mode Ambulatory Transfer Assistance None Patient Identification Verified (Name & Yes ) Patient Requires Transmission-Based No Precautions Finger Stick Blood Sugar(mg/dl) (if 161 indicated): Blood Sugar Stated by Patient Height and Weight Height 5 ft 5 in Weight 224 lb 13.367 oz Weight in Pounds 224.8 lbs Body Mass Index (BMI) 37.4 BMI Classification Obese BSA - Torrie 2.08 Vital Signs Temperature (97.8 F-99.1 F) 99.1 F Temperature Source Temporal Pulse Rate (60-100) 72 Pulse Location Monitor Respiratory Rate (12-18) 18 Respiratory rate source Observation Blood Pressure (90/60-120/80) 137/63 H Blood Pressure Mean (mm Hg) 87 Source Monitor Pain Scale: 0-10 Numeric Is Patient Pain Free? Yes Communication Assessment Preferred language Mongolian Able to Read Yes Able to Write Yes Communication Tools None Right Hearing Abillity Normal Left Hearing Abillity Hard of Hearing Visual Assistive Devices Glasses Teaching Assessment Preferences Verbal,Written, Demonstration Barriers to Learning None Readiness To Learn Good Willingness to Engage in Self Management Med Activies Readiness to Engage in Self Management Med Activities Anxiety Level Calm Cooperation Cooperative Perception Coherent Interest in Health Problem Asks Questions Education Importance Acknowledges Need Does Patient Smoke tobacco or other No substances Smoking Status Never smoker Is Patient Diabetic Yes Functional Assessment Recent Decline in Ability to Perform Denies Any Declines 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 Filling Machine Operator to contact place of latter day No Teaching: Wound Center Dressing Your Wound -Person Taught Patient Discharge Instructions -Person Taught Patient Diagnostic Tests Ordered -Person Taught Patient *Welcome to the Wound Center -Person Taught Patient WC - Nurse 1 - General Ulcer Measurement Start: 04/18/21 14:53 Freq: Status: Active Protocol: Activity Type Activity Date Activity User E-Sign Co-Sign Detail Recorded Client Recorded Date Recorded By Document 04/18/21 15:06 DL [id number] 04/18/21 15:22 DL 04/18/21 15:06 Wound Center Nurse 1 #1 Abd -Current Size (cm) - Length 1.5 -Current Size (cm) - Width 1.9 -Current Size (cm) - Depth 0.1 -Total Square Cm 2.85 -Photo Taken Yes -Tunneling No -Undermining/Tunneling No -Exudate Type Serosanguineous -Wound Margin Distinct, Outline Attached -Granulation Amt Large (67-100%) -Granulation Quality [place] -Necrosis Amt Medium (34-66%) -Necrotic Tissue Type Adherent Slough -Structure Exposed N/A -Texture (Julianna-wound Skin Appearance) Scarring -Moisture (Julianna-wound Skin Appearance) No Abnormality -Color (Julianna-wound Skin Appearance) Rubor -Temperature (Julianna-wound Skin No Abnormality Appearance) (Pt Warm) -Tenderness on Palpation (Julianna-wound No Skin Appearance) -Ulcer Cleansing Rinsed/ Irrigated with Saline -Foul Odor after Cleansing No -Anesthetic Used 4% Lidocaine Solution OLE - Nurse 2 - General Ulcer CM Notes Start: 04/18/21 14:53 Freq: Status: Active Protocol: Activity Type Activity Date Activity User E-Sign Co-Sign Detail Recorded Client Recorded Date Recorded By Document 04/18/21 16:04 MW [id number] 04/18/21 16:08 MW 04/18/21 16:04 Wound Center Nurse 2 -Time 16:05 -Correct Patient Yes -Correct Side, Site, Position Yes -Correct Procedure Yes -Procedure Performed Yes -Type of Procedure Debridement -Clinical Debridement Subcutaneous -Tissue Removed Subcutaneous -Post Debridement (cm) - Length 2.1 -Post Debridement (cm) - Width 1.5 -Post Debridement (cm) - Depth 0.1 -Total Square (Post) (cm) 3.15 -Area of Debridement (cm) - Length 2.1 -Area of Debridement (cm) - Width 1.5 -Total Square (Area) (cm) 3.15 -Tunneling No -Undermining/Tunneling No -Circular Undermining No -Wound/Ulcer Outcome Not Healed -Ulcer Cleansing Rinsed/ Irrigated with Saline -Foul Odor after Cleansing No -Bioengineered Tissue No -Bleeding Controlled with Pressure -Offloading No -Treatment Response Procedure Tolerated Well -Debridement - Subq, 1st 20sq cm Yes Pain Scale: 0-10 Numeric Is Patient Pain Free? Yes WC - Nurse 3 - General Ulcer D/C NN Start: 04/18/21 14:53 Freq: Status: Active Protocol: Activity Type Activity Date Activity User E-Sign Co-Sign Detail Recorded Client Recorded Date Recorded By Document 04/18/21 16:10 MW [id number] 04/18/21 16:41 MW 04/18/21 16:10 Wound Care Nurse 3 #1 Abd -Ulcer Cleansing Rinsed/ Irrigated with Saline -Foul Odor after Cleansing No -Negative Pressure Wound Therapy N/A -Primary Dressing Applied Promogran Janie Matter -Other Covering [place] SAP foam dressing -Promogran Janie Matter 1 Treatment Response Procedure Tolerated Well Pain Scale: 0-10 Numeric Is Patient Pain Free? Yes Teaching: Wound Center Dressing Your Wound -Person Taught Patient -Teaching Method Discussion, Demonstration -Response to teaching Verbalize understanding WC - Visit Discharge Discharge Condition Stable Ambulatory Status Ambulatory Transportation Private Auto Accompanied by self Medication Reconcilliation completed & No provided to patient/care provider Clinical Summary of Care Provided Yes Wound debrided: non-healing wound in the RLQ of the abdomen Type of Debridement: Excisional debridement Anesthesia Used: 4% Lidocaine Solution Depth: Down to and including healthy tissue and in the subcutaneous layer Percentage of wound debrided: 100 Instrument Used: 3mm curette Tissue Removed: Biofilm and slough. Severity: Limited To Skin Breakdown Amount of bleeding with debridement: None Patient tolerated procedure: Patient tolerated procedure well Operative Diagnosis: Non- healing, non-pressure wound of the abdominal wall Assessment/Plan Assessment/Plan (1) Non-healing wound: (2) Diabetes mellitus, type II: CODE(S): E11.9 - Type 2 diabetes mellitus without complications (3) Morbid obesity with BMI of 45.0-49.9, adult: CODE(S): E66.01 - Morbid (severe) obesity due to excess calories; Z68.42 - Body mass index [BMI] 45.0-49.9, adult PLAN: 1. Culture the wound. Apply Janie and cover with an ex-sean dress ing. RTC in 1 week for a recheck. Do NOT use hydrogen peroxide, Bactroban, Neosporin, iodine on the wound......only NS to cleanse the wound. I will call her if the culture grows bacteria. 2. Avoid any tight clothing that will rub against the wound. 3. Stressed the importance of good BS control in healing a wound. 4. No scratching.
== END 2021-04-24 23:59 ==
LOC: WC 14:49
PROVIDERS: PCP Family Medicine; Visit Provider Internal Medicine
DX: L03.311 Cellulitis of abdominal wall (principal); E66.01 Morbid (severe) obesity due to excess calories; E11.9 Type 2 diabetes mellitus without complications; Z68.42 Body mass index [BMI] 45.0-49.9, adult; E78.5 Hyperlipidemia, unspecified; F31.9 Bipolar disorder, unspecified; G47.33 Obstructive sleep apnea (adult) (pediatric); I10 Essential (primary) hypertension; K21.9 Gastro-esophageal reflux disease without esophagitis; K76.0 Fatty (change of) liver, not elsewhere classified; Z86.73 Personal history of transient ischemic attack (TIA), and cerebral infarction without residual deficits; Z87.19 Personal history of other diseases of the digestive system; Z90.49 Acquired absence of other specified parts of digestive tract; Z96.643 Presence of artificial hip joint, bilateral
CPT/HCPCS: 11042; 87070; 87205; 99203; G0463

== ENCOUNTER 2021-05-16 13:30 | Outpatient (RCR) | payer OTHER, SELFPAY ==
[2021-04-25 00:44] VITALS: BP 137/63; PULSE 72; RESP 18; TEMP 37.3
[2021-04-25 15:03] VITALS: BP 135/53; PULSE 69; RESP 16; TEMP 36.4; BMI 37.4
--- NOTE | 2021-04-25 15:21 | PN.PCM_ITS ---
History of Present Illness Date of Service: 04/25/21 Chief Complaint: non-healing wound of the abdominal wall following Cellulitis of the abd wall. Subjective Subjective The date of this encounter is 04/25/21. Charu returns today for a follow up visit. Her abdominal wound is currently being dressed with Janie with an adaptic over it. she has not been using soap, only NS to cleanse the wound. She denies fevers/sweats/chills. She has no pain. The wound culture grew a coag negative Staph and a GM + orquidea which is more than likely a diptheroid. Objective Data Objective Data Vital Signs: Vital Signs Temp Pulse Resp BP 97.5 F L 69 16 135/53 H 04/25/21 15:03 04/25/21 15:03 04/25/21 15:03 04/25/21 15:03 Weight: 224 lb 13.367 oz Body Mass Index (BMI) 37.4 Charges/Coding Procedures Integumentary 111xxx-113xx: 55673 Abby subq tissue 20 sq cm/< Physical Exam Const alert, oriented x3, no apparent distress and well nourished Constitutional Narrative: well kempt General Appearance: cooperative and well developed Skin Wounds: wounds noted Wound Narrative: The wound is grady and well circumscribed. There is no erythema and no purulent DC. She has some serosanguinous drainage and it is brown in color......likely due to a rx with the silver in the Janie. The wound is 75% granulating. There is obvious rim of new epithelium around the wo und. There is no tunnelling and no undermining. No odor. 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 ) Arrival Mode Ambulatory Patient Identification Verified (Name & No ) Patient Requires Transmission-Based No Precautions Height and Weight Body Mass Index (BMI) 37.4 BMI Classification Obese Vital Signs Temperature (97.8 F-99.1 F) 97.5 F L Temperature Source Temporal Pulse Rate (60-100) 69 Pulse Location Monitor Respiratory Rate (12-18) 16 Respiratory rate source Observation Blood Pressure (90/60-120/80) 135/53 H Blood Pressure Mean (mm Hg) 80 Source Monitor Position Semi-Fowlers Blood Pressure Location Left Arm History Since Last Visit- (Skip if this is Patient's initial visit) Have you changed medications since your No last visit? Any new allergies or adverse reactions No Had a fall/change in ADL's that may No increase risk of falls Signs or symptoms of abuse and/or No neglect since last visit Have you been in the hospital since your No last visit? Has dressing in place as prescribed Yes Has compression in place as prescribed N/A Has offloadiing in place as prescribed N/A Experienced any changes in pain level or No management Left Footwear Regular Shoe Right Footwear Regular Shoe Pain Scale: 0-10 Numeric Is Patient Pain Free? Yes WC - Nurse 1 - General Ulcer Measurement Start: 04/25/21 15:00 Freq: Status: Active Protocol: Activity Type Activity Date Activity User E-Sign Co-Sign Detail Recorded Client Recorded Date Recorded By Document 04/25/21 15:03 LINDA [id number] 04/25/21 15:09 LINDA 04/25/21 15:03 Wound Center Nurse 1 #1 Abd -Combined with other wound No -Current Size (cm) - Length 1.5 -Current Size (cm) - Width 1.2 -Current Size (cm) - Depth 0.1 -Total Square Cm 1.80 -Photo Taken No -Epithelialization Medium 34-66% -Tunneling No -Undermining/Tunneling No -Circular Undermining No -Exudate Amt Small -Exudate Type Serosanguineous -Wound Margin Flat & Intact -Granulation Amt Large (67-100%) -Granulation Quality Red -Slough/Fibrin Yes -Necrosis Amt Small (1-33%) -Necrotic Tissue Type Adherent Slough -Structure Exposed N/A -Texture (Julianna-wound Skin Appearance) Assessed -Moisture (Julianna-wound Skin Appearance) Assessed,Dry/ Scaly -Color (Julianna-wound Skin Appearance) Assessed -Temperature (Julianna-wound Skin No Abnormality Appearance) (Pt Warm) -Tenderness on Palpation (Julianna-wound No Skin Appearance) -Ulcer Cleansing Rinsed/ Irrigated with Saline -Foul Odor after Cleansing No Lower Limb Edema Present NA - Nurse 2 - General Ulcer CM Notes Start: 04/25/21 15:00 Freq: Status: Active Protocol: Activity Type Activity Date Activity User E-Sign Co-Sign Detail Recorded Client Recorded Date Recorded By Document 04/25/21 15:15 MW [id number] 04/25/21 15:18 MW 04/25/21 15:15 Wound Center Nurse 2 #1 Abd -Time 15:15 -Correct Patient Yes -Correct Side, Site, Position Yes -Correct Procedure Yes -Procedure Performed Yes -Type of Procedure Debridement -Clinical Debridement Subcutaneous -Tissue Removed Subcutaneous -Post Debridement (cm) - Length 1.3 -Post Debridement (cm) - Width 1.1 -Post Debridement (cm) - Depth 0.1 -Total Square (Post) (cm) 1.43 -Area of Debridement (cm) - Length 1.3 -Area of Debridement (cm) - Width 1.1 -Total Square (Area) (cm) 1.43 -Tunneling No -Undermining/Tunneling No -Circular Undermining No -Wound/Ulcer Outcome Not Healed -Ulcer Cleansing Rinsed/ Irrigated with Saline -Foul Odor after Cleansing No -Bioengineered Tissue No -Bleeding Controlled with Pressure -Offloading No -Treatment Response Procedure Tolerated Well -Debridement - Subq, 1st 20sq cm Yes Pain Scale: 0-10 Numeric Is Patient Pain Free? Yes - Nurse 3 - General Ulcer D/C NN Start: 04/25/21 15:00 Freq: Status: Active Protocol: Activity Type Activity Date Activity User E-Sign Co-Sign Detail Recorded Client Recorded Date Recorded By Document 04/25/21 15:18 MW [id number] 04/25/21 15:19 MW 04/25/21 15:18 Wound Care Nurse 3 #1 Abd -Ulcer Cleansing Rinsed/ Irrigated with Saline -Foul Odor after Cleansing No -Negative Pressure Wound Therapy N/A -Primary Dressing Applied Promogran Janie Matter -Primary Dressing Covered/Secured with Dry Gauze, Secured with Tape -Promogran Janie Matter 1 Treatment Response Procedure Tolerated Well Pain Scale: 0-10 Numeric Is Patient Pain Free? Yes Teaching: Wound Center Dressing Your Wound -Person Taught Patient -Teaching Method Discussion -Response to teaching Verbalize understanding WC - Visit Discharge Discharge Condition Stable Ambulatory Status Ambulatory Transportation Private Auto Accompanied by self Medication Reconcilliation completed & No provided to patient/care provider Clinical Summary of Care Provided Yes Wound debrided: abdominal wound in the RLQ Type of Debridement: Excisional debridement Anesthesia Used: 5% Lidocaine Gel Depth: Down to and including healthy tissue and in the subcutaneous layer Percentage of wound debrided: 100 Instrument Used: 3mm curette Tissue Removed: biofilm and slough Severity: Fat Layer Exposed Amount of bleeding with debridement: Mild Bleeding Controlled with: Pressure Patient tolerated procedure: Patient tolerated procedure well Operative Diagnosis: Non-healing abdoominal wound Assessment/Plan Assessment/Plan (1) Non-healing wound: PLAN: Continue Janie RTC in 1 week. CAll me if any fevers/chills or sweats. Continue to cleanse with NS
[2021-05-02 14:01] VITALS: BP 115/58; PULSE 63; RESP 18; TEMP 36.7; BMI 37.4
[2021-05-16 13:57] VITALS: BP 123/59; PULSE 71; RESP 18; TEMP 37; BMI 37.4
--- NOTE | 2021-05-16 14:46 | PN.PCM_ITS ---
History of Present Illness Date of Service: 05/16/21 Chief Complaint: non-healing wound of the abdominal wall following Cellulitis of the abd wall. Subjective Subjective She tells us that she has had back pain for the past week and Dr. Cabrera placed her on a 9 day course of prednisone. She also had radicular pain in the R leg. She denies F/C/S. the wound is not yet healed. States her blood sugars are much better and she has lost 19 lbs intentionally. Objective Data Objective Data Vital Signs: Vital Signs Temp Pulse Resp BP 98.6 F 71 18 123/59 H 05/16/21 13:57 05/16/21 13:57 05/16/21 13:57 05/16/21 13:57 Weight: 224 lb 13.367 oz Body Mass Index (BMI) 37.4 Charges/Coding Procedures Integumentary 111xxx-113xx: 17273 Abby subq tissue 20 sq cm/< Physical Exam Skin Wound Narrative: The abdominal wound remains open. It is flush with her skin. There is no julianna-wound erythema, no increased warmth to touch, no purulent DC and no odor. There is no tunneling and no undermining. Debridement Note Debridement Note Post-Debridement Measurements and Additional Note: Post-Debridement Measurements/Treatment - Nurse 1 - General Ulcer Assessment Start: 04/25/21 15:00 Freq: Status: Active Protocol: ZOILA Activity Type Activity Date Activity User E-Sign Co-Sign Detail Recorded Client Recorded Date Recorded By Document 04/25/21 15:03 [id number] 04/25/21 15:09 JF Document 05/02/21 14:01 DL [id number] 05/02/21 14:12 DL Document 05/16/21 13:57 DL [id number] 05/16/21 14:00 DL 04/25/21 05/02/21 05/16/21 15:03 14:01 13:57 - Today's Visit Information Type of service Follow-up Visit Follow-up Visit Follow-up Visit (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 (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 (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 ) ) ) Arrival Mode Ambulatory Ambulatory Ambulatory Transfer Assistance None None Patient Identification Verified (Name & No Yes ) Patient Requires Transmission-Based No No No Precautions Height and Weight Body Mass Index (BMI) 37.4 37.4 37.4 BMI Classification Obese Obese Obese Vital Signs Temperature (97.8 F-99.1 F) 97.5 F L 98.1 F 98.6 F Temperature Source Temporal Temporal Temporal Pulse Rate (60-100) 69 63 71 Pulse Location Monitor Monitor Monitor Respiratory Rate (12-18) 16 18 18 Respiratory rate source Observation Observation Observation Blood Pressure (90/60-120/80) 135/53 H 115/58 L 123/59 H Blood Pressure Mean (mm Hg) 80 77 80 Source Monitor Monitor Monitor Position Semi-Fowlers Blood Pressure Location Left Arm History Since Last Visit- (Skip if this is Patient's initial visit) Have you changed medications since your No No No last visit? Any new allergies or adverse reactions No No No Had a fall/change in ADL's that may No No No increase risk of falls Signs or symptoms of abuse and/or No No No neglect since last visit Have you been in the hospital since your No No No last visit? Has dressing in place as prescribed Yes Yes Yes Has compression in place as prescribed N/A N/A N/A Has offloadiing in place as prescribed N/A N/A Experienced any changes in pain level or No No No management Left Footwear Regular Shoe Right Footwear Regular Shoe Pain Scale: 0-10 Numeric Is Patient Pain Free? Yes Yes WC - Nurse 1 - General Ulcer Measurement Start: 04/25/21 15:00 Freq: Status: Active Protocol: Activity Type Activity Date Activity User E-Sign Co-Sign Detail Recorded Client Recorded Date Recorded By Document 04/25/21 15:03 [id number] 04/25/21 15:09 Document 05/02/21 14:01 DL [id number] 05/02/21 14:12 DL Document 05/16/21 13:57 DL [id number] 05/16/21 14:00 DL 04/25/21 05/02/21 05/16/21 15:03 14:01 13:57 Wound Center Nurse 1 #1 Abd -Combined with other wound No -Current Size (cm) - Length 1.5 1 1 -Current Size (cm) - Width 1.2 1.4 1.1 -Current Size (cm) - Depth 0.1 0.1 0.1 -Total Square Cm 1.80 1.4 1.1 -Photo Taken No No No -Epithelialization Medium 34-66% -Tunneling No -Undermining/Tunneling No -Circular Undermining No -Exudate Amt Small Small Small -Exudate Type Serosanguineous Serosanguineous Serosanguineous -Wound Margin Flat & Intact Distinct, Distinct, Outline Outline Attached Attached -Granulation Amt Large (67-100%) Small (1-33%) Small (1-33%) -Granulation Quality Red Hawley Red -Slough/Fibrin Yes -Necrosis Amt Small (1-33%) Small (1-33%) Small (1-33%) -Necrotic Tissue Type Adherent Slough Adherent Slough Adherent Slough -Structure Exposed N/A N/A N/A -Texture (Julianna-wound Skin Appearance) Assessed Scarring Scarring -Moisture (Julianna-wound Skin Appearance) Assessed,Dry/ No Abnormality No Abnormality Scaly -Color (Julianna-wound Skin Appearance) Assessed Rubor Assessed -Temperature (Julianna-wound Skin No Abnormality No Abnormality No Abnormality Appearance) (Pt Warm) (Pt Warm) (Pt Warm) -Tenderness on Palpation (Julianna-wound No No No Skin Appearance) -Ulcer Cleansing Rinsed/ Rinsed/ Rinsed/ Irrigated with Irrigated with Irrigated with Saline Saline Saline -Foul Odor after Cleansing No No No -Anesthetic Used 5% Lidocaine 4% Lidocaine Gel Solution Lower Limb Edema Present NA WC - Nurse 2 - General Ulcer CM Notes Start: 04/25/21 15:00 Freq: Status: Active Protocol: Activity Type Activity Date Activity User E-Sign Co-Sign Detail Recorded Client Recorded Date Recorded By Document 04/25/21 15:15 MW [id number] 04/25/21 15:18 MW Document 05/02/21 15:01 MW [id number] 05/02/21 15:05 MW Document 05/16/21 14:19 MW [id number] 05/16/21 14:24 MW 04/25/21 05/02/21 05/16/21 15:15 15:01 14:19 Wound Center Nurse 2 #1 Abd -Time 15:15 15:01 14:19 -Correct Patient Yes Yes Yes -Correct Side, Site, Position Yes Yes Yes -Correct Procedure Yes Yes Yes -Procedure Performed Yes Yes Yes -Type of Procedure Debridement Debridement Debridement -Clinical Debridement Subcutaneous Subcutaneous Subcutaneous -Tissue Removed Subcutaneous Subcutaneous Subcutaneous -Post Debridement (cm) - Length 1.3 1.5 1.0 -Post Debridement (cm) - Width 1.1 0.7 1.2 -Post Debridement (cm) - Depth 0.1 0.1 0 -Total Square (Post) (cm) 1.43 1.05 1.20 -Area of Debridement (cm) - Length 1.3 1.5 1.0 -Area of Debridement (cm) - Width 1.1 0.7 1.2 -Total Square (Area) (cm) 1.43 1.05 1.20 -Tunneling No No No -Undermining/Tunneling No No No -Circular Undermining No No No -Wound/Ulcer Outcome Not Healed Not Healed Not Healed -Ulcer Cleansing Rinsed/ Rinsed/ Rinsed/ Irrigated with Irrigated with Irrigated with Saline Saline Saline -Foul Odor after Cleansing No No No -Bioengineered Tissue No No No -Bleeding Controlled with Pressure Pressure Pressure -Offloading No No No -Treatment Response Procedure Procedure Procedure Tolerated Well Tolerated Well Tolerated Well -Debridement - Subq, 1st 20sq cm Yes Yes Yes Pain Scale: 0-10 Numeric Is Patient Pain Free? Yes Yes Yes WC - Nurse 3 - General Ulcer D/C NN Start: 04/25/21 15:00 Freq: Status: Active Protocol: Activity Type Activity Date Activity User E-Sign Co-Sign Detail Recorded Client Recorded Date Recorded By Document 04/25/21 15:18 MW [id number] 04/25/21 15:19 MW Document 05/02/21 15:08 DL [id number] 05/02/21 15:09 DL Document 05/16/21 14:24 MW [id number] 05/16/21 14:24 MW 04/25/21 05/02/21 05/16/21 15:18 15:08 14:24 Wound Care Nurse 3 #1 Abd -Ulcer Cleansing Rinsed/ Rinsed/ Rinsed/ Irrigated with Irrigated with Irrigated with Saline Saline Saline -Foul Odor after Cleansing No No No -Negative Pressure Wound Therapy N/A N/A -Primary Dressing Applied Promogran Promogran Promogran Janie Matter Janie Matter Janie Matter -Primary Dressing Covered/Secured with Dry Gauze, Dry Gauze, Dry Gauze, Secured with Secured with Secured with Tape Tape Tape -Promogran Janie Matter 1 1 1 Treatment Response Procedure Procedure Procedure Tolerated Well Tolerated Well Tolerated Well Pain Scale: 0-10 Numeric Is Patient Pain Free? Yes Yes Yes Teaching: Wound Center Dressing Your Wound -Person Taught Patient Patient -Teaching Method Discussion Discussion, Demonstration -Response to teaching Verbalize Reinforcement understanding needed WC - Visit Discharge Discharge Condition Stable Stable Stable Ambulatory Status Ambulatory Ambulatory Ambulatory Transportation Private Auto Private Auto Private Auto Accompanied by self self Medication Reconcilliation completed & No No provided to patient/care provider Clinical Summary of Care Provided Yes Yes Wound debrided: abdominal wound Wound Grade/Stage: N/A Type of Debridement: Selective debridement Anesthesia Used: 5% Lidocaine Gel Depth: Down to and including healthy tissue and in the subcutaneous layer Percentage of wound debrided: 100 Instrument Used: 3mm curette and Forceps Tissue Removed: biofilm and the rim of whitish slough at the periphery Severity: Limited To Skin Breakdown Amount of bleeding with debridement: Mild Bleeding Controlled with: Pressure Patient tolerated procedure: Patient tolerated procedure well Debridement Free Text: wound base is beefy red following debridement Operative Diagnosis: non-healing wound of the abdominal wall following cellulitis resolution Assessment/Plan Assessment/Plan (1) Non-healing wound: PLAN: Continue with the current dressing and she is to keep the wound moist. I suspect that the high dose steroids have impaired wound healing the past week. Her wt loss efforts were applauded and she plans on continuing.
== END 2021-05-24 23:59 ==
LOC: WC 13:30
PROVIDERS: PCP Family Medicine; Visit Provider Internal Medicine
DX: S31.109S Unspecified open wound of abdominal wall, unspecified quadrant without penetration into peritoneal cavity, sequela (principal)
CPT/HCPCS: 11042

== ENCOUNTER 2021-06-13 13:30 | Outpatient (RCR) | payer OTHER, SELFPAY ==
[2021-05-25 00:30] VITALS: BP 123/59; PULSE 71; RESP 18; TEMP 37
[2021-05-30 13:48] VITALS: BP 116/84; PULSE 73; RESP 18; TEMP 36.3; BMI 37.4
--- NOTE | 2021-05-30 15:20 | PN.PCM_ITS ---
History of Present Illness Date of Service: 05/30/21 Chief Complaint: non-healing wound of the abdominal wall following Cellulitis of the abd wall. Subjective Subjective Charu denies fevers, chills, sweats or pain in the abdominal wound. She feels as though it is grady. There is a rim of dried skin/discharge surrounding the wound. She is using Janie to dress the wound. Objective Data Objective Data Vital Signs: Vital Signs Temp Pulse Resp BP 97.4 F L 73 18 116/84 H 05/30/21 13:48 05/30/21 13:48 05/30/21 13:48 05/30/21 13:48 Weight: 224 lb 13.367 oz Body Mass Index (BMI) 37.4 Charges/Coding Procedures Integumentary 111xxx-113xx: 59923 Abby subq tissue 20 sq cm/< Physical Exam Skin Wounds: wounds noted Wound Narrative: The wound is grady and is now even with the surface. there is no tunneling and no undermining. No purulent DC and no odor. 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 ) Arrival Mode Ambulatory Patient Identification Verified (Name & Yes ) Patient Requires Transmission-Based No Precautions Safety Precautions NA Height and Weight Body Mass Index (BMI) 37.4 BMI Classification Obese Vital Signs Temperature (97.8 F-99.1 F) 97.4 F L Temperature Source Temporal Pulse Rate (60-100) 73 Pulse Location Monitor Respiratory Rate (12-18) 18 Respiratory rate source Observation Blood Pressure (90/60-120/80) 116/84 H Blood Pressure Mean (mm Hg) 94 Source Monitor Position Sitting Blood Pressure Location Right Arm History Since Last Visit- (Skip if this is Patient's initial visit) Have you changed medications since your No last visit? Any new allergies or adverse reactions No Had a fall/change in ADL's that may No increase risk of falls Signs or symptoms of abuse and/or No neglect since last visit Have you been in the hospital since your No last visit? Has dressing in place as prescribed Yes Has compression in place as prescribed N/A Has offloadiing in place as prescribed N/A Experienced any changes in pain level or No management Right Footwear Regular Shoe Pain Scale: 0-10 Numeric Is Patient Pain Free? Yes - Nurse 1 - General Ulcer Measurement Start: 05/30/21 13:48 Freq: Status: Active Protocol: Activity Type Activity Date Activity User E-Sign Co-Sign Detail Recorded Client Recorded Date Recorded By Document 05/30/21 13:48 ML [id number] 05/30/21 13:50 ML 05/30/21 13:48 Wound Center Nurse 1 #1 Abd -Current Size (cm) - Length 0.8 -Current Size (cm) - Width 0.5 -Current Size (cm) - Depth 0.2 -Total Square Cm 0.40 -Epithelialization Medium 34-66% -Exudate Amt Medium -Exudate Type Serous -Wound Margin Distinct, Outline Attached -Granulation Amt Medium (34-66%) -Granulation Quality Red -Slough/Fibrin Yes -Necrosis Amt Medium (34-66%) -Necrotic Tissue Type Adherent Slough -Texture (Julianna-wound Skin Appearance) Assessed -Moisture (Julianna-wound Skin Appearance) Assessed -Color (Julianna-wound Skin Appearance) Assessed -Temperature (Julianna-wound Skin No Abnormality Appearance) (Pt Warm) -Tenderness on Palpation (Julianna-wound No Skin Appearance) -Ulcer Cleansing Rinsed/ Irrigated with Saline -Foul Odor after Cleansing No -Anesthetic Used 4% Lidocaine Solution - Nurse 2 - General Ulcer CM Notes Start: 05/30/21 13:48 Freq: Status: Active Protocol: Activity Type Activity Date Activity User E-Sign Co-Sign Detail Recorded Client Recorded Date Recorded By Document 05/30/21 14:02 MW [id number] 05/30/21 14:04 MW 05/30/21 14:02 Wound Center Nurse 2 -Time 14:02 -Correct Patient Yes -Correct Side, Site, Position Yes -Correct Procedure Yes -Procedure Performed Yes -Type of Procedure Debridement -Clinical Debridement Subcutaneous -Tissue Removed Subcutaneous -Post Debridement (cm) - Length 0.7 -Post Debridement (cm) - Width 0.8 -Post Debridement (cm) - Depth 0.1 -Total Square (Post) (cm) 0.56 -Area of Debridement (cm) - Length 0.7 -Area of Debridement (cm) - Width 0.8 -Total Square (Area) (cm) 0.56 -Tunneling No -Undermining/Tunneling No -Circular Undermining No -Wound/Ulcer Outcome Not Healed -Ulcer Cleansing Rinsed/ Irrigated with Saline -Foul Odor after Cleansing No -Bioengineered Tissue No -Bleeding Controlled with Pressure -Offloading No -Treatment Response Procedure Tolerated Well -Debridement - Subq, 1st 20sq cm Yes Pain Scale: 0-10 Numeric Is Patient Pain Free? Yes WC - Nurse 3 - General Ulcer D/C NN Start: 05/30/21 13:48 Freq: Status: Active Protocol: Activity Type Activity Date Activity User E-Sign Co-Sign Detail Recorded Client Recorded Date Recorded By Document 05/30/21 14:04 MW [id number] 05/30/21 14:04 MW 05/30/21 14:04 Wound Care Nurse 3 #1 Abd -Ulcer Cleansing Rinsed/ Irrigated with Saline -Foul Odor after Cleansing No -Negative Pressure Wound Therapy N/A -Primary Dressing Applied Promogran Janie Matter -Primary Dressing Covered/Secured with Dry Gauze, Secured with Tape -Promogran Janie Matter 1 Treatment Response Procedure Tolerated Well Pain Scale: 0-10 Numeric Is Patient Pain Free? Yes Teaching: Wound Center Dressing Your Wound -Person Taught Patient -Teaching Method Discussion -Response to teaching Verbalize understanding WC - Visit Discharge Discharge Condition Stable Ambulatory Status Ambulatory Transportation Private Auto Accompanied by self Medication Reconcilliation completed & No provided to patient/care provider Clinical Summary of Care Provided Yes Wound debrided: abd wound in the RLQ. Wound Grade/Stage: N/A Type of Debridement: Excisional debridement Anesthesia Used: 4% Lidocaine Solution Depth: Down to and including healthy tissue and in the subcutaneous layer Percentage of wound debrided: 50 Tissue Removed: biofilm and the dried old skin at the wound margin. Severity: Limited To Skin Breakdown Amount of bleeding with debridement: None Patient tolerated procedure: Patient tolerated procedure well Operative Diagnosis: non-pressure wound of the abd wall Assessment/Plan Assessment/Plan (1) Open abdominal wall wound: CODE(S): S31.109A - Unspecified open wound of abdominal wall, unspecified quadrant without penetration into peritoneal cavity, initial encounter QUALIFIERS: Encounter type: subsequent encounter Qualified Code(s): S31.109D - Unspecified open wound of abdominal wall, unspecified quadrant without penetration into peritoneal cavity, subsequent encounter (2) Diabetes mellitus, type II: CODE(S): E11.9 - Type 2 diabetes mellitus without complications PLAN: 1. The wound continues to contract and the area today is 0.8X0.7 which is down from 1X1.2 on 05/16/21. Will continue with Janie and she will RTC in 2 weeks for a recheck.
[2021-06-13 13:27] VITALS: BP 127/62; PULSE 68; RESP 18; TEMP 37; BMI 37.4
--- NOTE | 2021-06-15 18:27 | PN.PCM_ITS ---
History of Present Illness Date of Service: 06/13/21 Chief Complaint: non-healing wound of the abdominal wall following Cellulitis of the abd wall. Subjective Subjective Charu denies fevers, chills, sweats. She tells me the wound is not healed and she got confused on how often to change the dressing......she thinks the dressing is pulling off the skin and keeping it from healing.....she has not been changing daily and the wound is dry and the bandage is sticking to it. Objective Data Objective Data Vital Signs: Vital Signs Temp Pulse Resp BP 98.6 F 68 18 127/62 H 06/13/21 13:27 06/13/21 13:27 06/13/21 13:27 06/13/21 13:27 Weight: 224 lb 13.367 oz Body Mass Index (BMI) 37.4 Charges/Coding Procedures Integumentary 111xxx-113xx: [id number] Abby subq tissue 20 sq cm/< Physical Exam Skin Wound Narrative: The wound is smaller but, the surface of the wound is dry and the bandage was sticking to the wound when it was removed by nursing. there is no julianna-wound erythema and no purulent DC. There is no odor, no tunneling and no undermining. The wound base is even with the skin. the size has decreased from 0.56 CM squared to 0.42 centimeters squared. there is scarring around the wound circumferentially due to healing and epithelialization. 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 (Physician/HEADSTART TEACHER ) ) Arrival Mode Ambulatory Ambulatory Transfer Assistance None Patient Identification Verified (Name & Yes Yes ) Patient Requires Transmission-Based No No Precautions Safety Precautions NA Height and Weight Body Mass Index (BMI) 37.4 37.4 BMI Classification Obese Obese Vital Signs Temperature (97.8 F-99.1 F) 97.4 F L 98.6 F Temperature Source Temporal Temporal Pulse Rate (60-100) 73 68 Pulse Location Monitor Monitor Respiratory Rate (12-18) 18 18 Respiratory rate source Observation Observation Blood Pressure (90/60-120/80) 116/84 H 127/62 H Blood Pressure Mean (mm Hg) 94 83 Source Monitor Monitor Position Sitting Blood Pressure Location Right Arm History Since Last Visit- (Skip if this is Patient's initial visit) Have you changed medications since your No No last visit? Any new allergies or adverse reactions No No Had a fall/change in ADL's that may No No increase risk of falls Signs or symptoms of abuse and/or No No neglect since last visit Have you been in the hospital since your No last visit? Has dressing in place as prescribed Yes Yes Has compression in place as prescribed N/A N/A Has offloadiing in place as prescribed N/A N/A Experienced any changes in pain level or No No management Right Footwear Regular Shoe Pain Scale: 0-10 Numeric Is Patient Pain Free? Yes Yes WC - Nurse 1 - General Ulcer Measurement Start: 05/30/21 13:48 Freq: Status: Active Protocol: Activity Type Activity Date Activity User E-Sign Co-Sign Detail Recorded Client Recorded Date Recorded By Document 05/30/21 13:48 ML [id number] 05/30/21 13:50 ML Document 06/13/21 13:27 DL Desktop 06/13/21 13:30 DL 05/30/21 06/13/21 13:48 13:27 Wound Center Nurse 1 #1 Abd -Current Size (cm) - Length 0.8 0.7 -Current Size (cm) - Width 0.5 0.7 -Current Size (cm) - Depth 0.2 0.1 -Total Square Cm 0.40 0.49 -Photo Taken No -Epithelialization Medium 34-66% -Exudate Amt Medium None Present -Exudate Type Serous -Wound Margin Distinct, Distinct, Outline Outline Attached Attached -Granulation Amt Medium (34-66%) Large (67-100%) -Granulation Quality Red Red -Slough/Fibrin Yes -Necrosis Amt Medium (34-66%) None Present (0 %) -Necrotic Tissue Type Adherent Slough -Structure Exposed N/A -Texture (Julianna-wound Skin Appearance) Assessed Scarring -Moisture (Julianna-wound Skin Appearance) Assessed No Abnormality -Color (Julianna-wound Skin Appearance) Assessed No Abnormality -Temperature (Julianna-wound Skin No Abnormality No Abnormality Appearance) (Pt Warm) (Pt Warm) -Tenderness on Palpation (Julianna-wound No No Skin Appearance) -Ulcer Cleansing Rinsed/ Rinsed/ Irrigated with Irrigated with Saline Saline -Foul Odor after Cleansing No No -Anesthetic Used 4% Lidocaine 5% Lidocaine Solution Gel - Nurse 2 - General Ulcer CM Notes Start: 05/30/21 13:48 Freq: Status: Active Protocol: Activity Type Activity Date Activity User E-Sign Co-Sign Detail Recorded Client Recorded Date Recorded By Document 05/30/21 14:02 MW [id number] 05/30/21 14:04 MW Document 06/13/21 14:01 MW [id number] 06/13/21 14:03 MW 05/30/21 06/13/21 14:02 14:01 Wound Center Nurse 2 #1 Abd -Time 14:02 14:01 -Correct Patient Yes Yes -Correct Side, Site, Position Yes Yes -Correct Procedure Yes Yes -Procedure Performed Yes Yes -Type of Procedure Debridement Debridement -Clinical Debridement Subcutaneous Subcutaneous -Tissue Removed Subcutaneous Subcutaneous -Post Debridement (cm) - Length 0.7 0.7 -Post Debridement (cm) - Width 0.8 0.6 -Post Debridement (cm) - Depth 0.1 0.1 -Total Square (Post) (cm) 0.56 0.42 -Area of Debridement (cm) - Length 0.7 0.7 -Area of Debridement (cm) - Width 0.8 0.6 -Total Square (Area) (cm) 0.56 0.42 -Tunneling No No -Undermining/Tunneling No No -Circular Undermining No No -Wound/Ulcer Outcome Not Healed Not Healed -Ulcer Cleansing Rinsed/ Rinsed/ Irrigated with Irrigated with Saline Saline -Foul Odor after Cleansing No No -Bioengineered Tissue No No -Bleeding Controlled with Pressure Pressure -Offloading No No -Treatment Response Procedure Procedure Tolerated Well Tolerated Well -Debridement - Subq, 1st 20sq cm Yes Yes Pain Scale: 0-10 Numeric Is Patient Pain Free? Yes Yes - Nurse 3 - General Ulcer D/C NN Start: 05/30/21 13:48 Freq: Status: Active Protocol: Activity Type Activity Date Activity User E-Sign Co-Sign Detail Recorded Client Recorded Date Recorded By Document 05/30/21 14:04 MW [id number] 05/30/21 14:04 MW Document 06/13/21 14:07 MW [id number] 06/13/21 14:09 MW 05/30/21 06/13/21 14:04 14:07 Wound Care Nurse 3 #1 Abd -Ulcer Cleansing Rinsed/ Rinsed/ Irrigated with Irrigated with Saline Saline -Foul Odor after Cleansing No No -Negative Pressure Wound Therapy N/A N/A -Primary Dressing Applied Promogran NonAdherent Janie Matter Contact Layer, Promogran -Primary Dressing Covered/Secured with Dry Gauze, Secured with Tape -Promogran 1 -Promogran Janie Matter 1 Treatment Response Procedure Procedure Tolerated Well Tolerated Well Pain Scale: 0-10 Numeric Is Patient Pain Free? Yes Yes Teaching: Wound Center Dressing Your Wound -Person Taught Patient Patient -Teaching Method Discussion Discussion, Demonstration -Response to teaching Verbalize Verbalize understanding understanding WC - Visit Discharge Discharge Condition Stable Stable Ambulatory Status Ambulatory Ambulatory Transportation Private Auto Private Auto Accompanied by self self Medication Reconcilliation completed & No No provided to patient/care provider Clinical Summary of Care Provided Yes Yes Additional Wound Wound debrided: abd wall wound Wound Grade/Stage: N/A - it is a non-pressure wound Type of Debridement: Excisional debridement Anesthesia Used: 5% Lidocaine Gel Depth: Down to and including healthy tissue and in the subcutaneous layer Percentage of wound debrided: 100 Instrument Used: 3mm curette Tissue Removed: biofilm and dry adherent top Severity: Limited To Skin Breakdown Amount of bleeding with debridement: Mild Bleeding Controlled with: Pressure Patient tolerated procedure: Patient tolerated procedure well Operative Diagnosis: non-healing burn wound of the abd wall Assessment/Plan Assessment/Plan (1) Open abdominal wall wound: CODE(S): S31.109A - Unspecified open wound of abdominal wall, unspecified quadrant without penetration into peritoneal cavity, initial encounter QUALIFIERS: Encounter type: subsequent encounter Qualified Code(s): S31.109D - Unspecified open wound of abdominal wall, unspecified quadrant without penetration into peritoneal cavity, subsequent encounter (2) Non-healing wound: PLAN: 1. continue the Janie - change daily to prevent the dressing from drying out and OK to soak the dressing prior to removing to change so it does not stick to the wound. 2. RTC in 2 weeks. 3. Call if any temp, chills or redness around the wound
== END 2021-06-24 23:59 ==
LOC: WC 13:30
PROVIDERS: PCP Family Medicine; Visit Provider Internal Medicine
DX: L03.311 Cellulitis of abdominal wall (principal); S31.109D Unspecified open wound of abdominal wall, unspecified quadrant without penetration into peritoneal cavity, subsequent encounter; E11.9 Type 2 diabetes mellitus without complications
CPT/HCPCS: 11042

== ENCOUNTER 2021-07-11 13:30 | Outpatient (RCR) | payer OTHER, SELFPAY ==
[2021-06-25 00:31] VITALS: BP 127/62; PULSE 68; RESP 18; TEMP 37
[2021-06-27 13:27] VITALS: BP 120/62; PULSE 66; RESP 18; TEMP 36.6; BMI 37.4
--- NOTE | 2021-06-27 13:59 | PCM.WC.PN ---
History of Present Illness Date of Service: 06/27/21 Chief Complaint: non-healing wound of the abdominal wall following Cellulitis of the abd wall. Subjective Subjective Charu returns to the wound care center today for a recheck on a nonhealing abdominal wound that originated with an infected burn. It has been 2 weeks since I last examined her. She denies fevers, chills, sweats. She denies pain in the area of the wound. The dressing is a nonadherent contact layer and Promogran. She has been changing the dressings herself. She tells me that the dressing stuck to the skin and a little of the skin pulled off with the bandage. Objective Data Objective Data Vital Signs: Vital Signs Temp Pulse Resp BP 97.9 F 66 18 120/62 06/27/21 13:27 06/27/21 13:27 06/27/21 13:27 06/27/21 13:27 Weight: 224 lb 13.367 oz Body Mass Index (BMI) 37.4 Charges/Coding Procedures Integumentary 111xxx-113xx: 20380 Abby subq tissue 20 sq cm/< Physical Exam Skin Wounds: wounds noted Wound Narrative: The wound is very small now and measures 0.3 X 0.4 X 0.1. There is no erythema and no purulent DC. There is no tunnelling and no undermining. No odor. 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 ) Arrival Mode Ambulatory Transfer Assistance None Patient Identification Verified (Name & Yes ) Patient Requires Transmission-Based No Precautions Height and Weight Body Mass Index (BMI) 37.4 BMI Classification Obese Vital Signs Temperature (97.8 F-99.1 F) 97.9 F Temperature Source Temporal Pulse Rate (60-100) 66 Pulse Location Monitor Respiratory Rate (12-18) 18 Respiratory rate source Observation Blood Pressure (90/60-120/80) 120/62 Blood Pressure Mean (mm Hg) 81 Source Monitor History Since Last Visit- (Skip if this is Patient's initial visit) Have you changed medications since your No last visit? Any new allergies or adverse reactions No Had a fall/change in ADL's that may No increase risk of falls Signs or symptoms of abuse and/or No neglect since last visit Have you been in the hospital since your No last visit? Has dressing in place as prescribed Yes Has compression in place as prescribed N/A Has offloadiing in place as prescribed N/A Experienced any changes in pain level or No management Pain Scale: 0-10 Numeric Is Patient Pain Free? Yes WC - Nurse 1 - General Ulcer Measurement Start: 06/27/21 13:27 Freq: Status: Active Protocol: Activity Type Activity Date Activity User E-Sign Co-Sign Detail Recorded Client Recorded Date Recorded By Document 06/27/21 13:27 DL [id number] 06/27/21 13:32 DL 06/27/21 13:27 Wound Center Nurse 1 #1 Abd -Current Size (cm) - Length 0.5 -Current Size (cm) - Width 0.5 -Current Size (cm) - Depth 0.1 -Total Square Cm 0.25 -Photo Taken No -Exudate Amt None Present -Wound Margin Distinct, Outline Attached -Granulation Amt Large (67-100%) -Granulation Quality Red -Necrosis Amt None Present (0 %) -Structure Exposed N/A -Texture (Julianna-wound Skin Appearance) Scarring -Moisture (Julianna-wound Skin Appearance) No Abnormality -Color (Julianna-wound Skin Appearance) No Abnormality -Temperature (Julianna-wound Skin No Abnormality Appearance) (Pt Warm) -Tenderness on Palpation (Julianna-wound No Skin Appearance) -Ulcer Cleansing Rinsed/ Irrigated with Saline -Foul Odor after Cleansing No -Anesthetic Used 5% Lidocaine Gel WC - Nurse 2 - General Ulcer CM Notes Start: 06/27/21 13:27 Freq: Status: Active Protocol: Activity Type Activity Date Activity User E-Sign Co-Sign Detail Recorded Client Recorded Date Recorded By Document 06/27/21 13:40 MW [id number] 06/27/21 13:41 MW 06/27/21 13:40 Wound Center Nurse 2 -Time 13:41 -Correct Patient Yes -Correct Side, Site, Position Yes -Correct Procedure Yes -Procedure Performed Yes -Type of Procedure Debridement -Clinical Debridement Subcutaneous -Tissue Removed Subcutaneous -Post Debridement (cm) - Length 0.3 -Post Debridement (cm) - Width 0.4 -Post Debridement (cm) - Depth 0.1 -Total Square (Post) (cm) 0.12 -Area of Debridement (cm) - Length 0.3 -Area of Debridement (cm) - Width 0.4 -Total Square (Area) (cm) 0.12 -Tunneling No -Undermining/Tunneling No -Circular Undermining No -Wound/Ulcer Outcome Not Healed -Ulcer Cleansing Rinsed/ Irrigated with Saline -Foul Odor after Cleansing No -Bioengineered Tissue No -Bleeding Controlled with Pressure -Offloading No -Treatment Response Procedure Tolerated Well -Debridement - Subq, 1st 20sq cm Yes Pain Scale: 0-10 Numeric Is Patient Pain Free? Yes - Nurse 3 - General Ulcer D/C NN Start: 06/27/21 13:27 Freq: Status: Active Protocol: Activity Type Activity Date Activity User E-Sign Co-Sign Detail Recorded Client Recorded Date Recorded By Document 06/27/21 13:49 MW [id number] 06/27/21 13:49 MW 06/27/21 13:49 Wound Care Nurse 3 #1 Abd -Ulcer Cleansing Rinsed/ Irrigated with Saline -Foul Odor after Cleansing No -Negative Pressure Wound Therapy N/A -Primary Dressing Applied NonAdherent Contact Layer, Promogran Janie Matter -Primary Dressing Covered/Secured with Dry Gauze, Secured with Tape -Promogran Janie Matter 1 Treatment Response Procedure Tolerated Well Pain Scale: 0-10 Numeric Is Patient Pain Free? Yes Teaching: Wound Center Dressing Your Wound -Person Taught Patient -Teaching Method Discussion, Demonstration -Response to teaching Verbalize understanding WC - Visit Discharge Discharge Condition Stable Ambulatory Status Ambulatory Transportation Private Auto Accompanied by self Medication Reconcilliation completed & No provided to patient/care provider Clinical Summary of Care Provided Yes Additional Wound Wound debrided: non-healing abdominal wound Anesthesia Used: 4% Lidocaine Solution Depth: Down to and including healthy tissue Percentage of wound debrided: 100 Instrument Used: 3mm curette Tissue Removed: biofilm Amount of bleeding with debridement: None Operative Diagnosis: non-healing thermal burn of the abdominal wall Assessment/Plan Assessment/Plan (1) Open abdominal wall wound: CODE(S): S31.109A - Unspecified open wound of abdominal wall, unspecified quadrant without penetration into peritoneal cavity, initial encounter QUALIFIERS: Encounter type: subsequent encounter Qualified Code(s): S31.109D - Unspecified open wound of abdominal wall, unspecified quadrant without penetration into peritoneal cavity, subsequent encounter PLAN: dress with a non-adherent lay and Promogran covered with a dry dressing. Follow up in 2 weeks Call if any fevers/chills or sweats or if any increase in redness, swelling or pain
[2021-07-11 13:48] VITALS: BP 125/50; PULSE 68; TEMP 36.3; BMI 37.4
--- NOTE | 2021-07-11 14:15 | PCM.WC.PN ---
History of Present Illness Date of Service: 07/11/21 Chief Complaint: non-healing wound of the abdominal wall following Cellulitis of the abd wall. Subjective Subjective Denies fever/chills/night sweats. She tells me she thinks that the wound on her abdomen has completely healed. It is currently being dressed with a nonadherent contact layer and Promogran Janie Matter and they a dry dressing. Objective Data Objective Data Vital Signs: Vital Signs Temp Pulse Resp BP 97.3 F L 68 18 125/50 H 07/11/21 13:48 07/11/21 13:48 06/27/21 13:27 07/11/21 13:48 Weight: 224 lb 13.367 oz Body Mass Index (BMI) 37.4 Charges/Coding Visit Charges Office Visits / Consults: 80350 OV L2 Est Physical Exam Skin Skin Narrative: She has several small papules on the left upper arm that are pruritic and she has been scratching them open. She tells me that she has psoriasis and when it gets like this when it is very hot and humid an antihistamine helps with the pruritus. Wound Narrative: The wound on the abd is completely healed. Debridement Note Debridement Note No debridement was completed: No debridement was completed today (The wound is healed. ) Assessment/Plan Assessment/Plan (1) Psoriasis: CODE(S): L40.9 - Psoriasis, unspecified (2) Open abdominal wall wound: CODE(S): S31.109A - Unspecified open wound of abdominal wall, unspecified quadrant without penetration into peritoneal cavity, initial encounter QUALIFIERS: Encounter type: subsequent encounter Qualified Code(s): S31.109D - Unspecified open wound of abdominal wall, unspecified quadrant without penetration into peritoneal cavity, subsequent encounter PLAN: Desloratidine 5 mg daily to help control pruritus She is healed. RTC as needed for any non-healing wounds.
== END 2021-07-11 14:04 | disposition home or self-care (01) ==
LOC: WC 13:30
PROVIDERS: PCP Family Medicine; Visit Provider Internal Medicine
DX: S31.109D Unspecified open wound of abdominal wall, unspecified quadrant without penetration into peritoneal cavity, subsequent encounter (principal); L40.9 Psoriasis, unspecified
CPT/HCPCS: 11042; 99213; G0463

== ENCOUNTER → 2021-09-15 09:13 | Outpatient (CLI) | payer OTHER, SELFPAY ==
--- NOTE | 2021-09-15 09:15 | US_ITS ---
STUDY: ABDOMINAL ULTRASOUND REASON FOR EXAM: Female, 60 years old. ABD PAIN TECHNIQUE: Transabdominal ultrasound was performed with real-time and static duncan scale imaging. TECHNICAL QUALITY: Limited. Examination limited due to obesity. COMPARISON: None. FINDINGS: Liver: The liver measures 18.6 cm. There is increased echogenicity consistent with fatty infiltration. The bile ducts are within normal limits. There is hepatic color flow. The direction of portal flow is hepatopetal. There is no demonstrated mass lesion. Gallbladder: The patient is status post cholecystectomy. Common Bile Duct (C.B.D.): The common bile duct measures 5 mm. Pancreas: Normal size of the head, body and tail of the pancreas. There is normal echogenicity of the pancreas. There is no demonstrated pancreatic mass or cyst. Spleen: There is splenomegaly. The spleen measures 19 cm x 5.1 cm x 5.3 cm. There is a 4.8 cm x 4.7 sided by 4.2 cm mild hypoechoic nodular density along the inferior medial portion of the spleen. Right Kidney: Normal size of the right kidney. The right kidney measures 9.7 cm x 4.8 cm x 4.6 cm. Normal renal cortex. The right cortex measures 1.1 cm. There is no demonstrated renal mass or cyst. There is no right hydronephrosis. Left Kidney: Normal size of the left kidney. The left kidney measures 10.3 cm x 4.8 cm x 5.1 cm. Normal renal cortex. The left cortex measures 1.2 cm. There is no demonstrated renal mass or cyst. There is no left hydronephrosis. Aorta: Unremarkable I.V.C.: The IVC is patent. There is no ascites. US/Abdomen Complete IMPRESSION: Fatty infiltration of the liver. Splenomegaly. 4.8 cm x 4.7 cm x 4.2 cm hypoechoic nodular density along the inferior medial portion of the spleen. Correlation with a CT scan is recommended. Electronically Signed: Ankur Ferrara MD at 11:01 EDT , Service support ,
== END ==
PROVIDERS: PCP Family Medicine; Referring Provider Family Medicine; Visit Provider Family Medicine
DX: K21.9 Gastro-esophageal reflux disease without esophagitis (principal); K74.60 Unspecified cirrhosis of liver; K75.81 Nonalcoholic steatohepatitis (NASH); E11.9 Type 2 diabetes mellitus without complications; E66.9 Obesity, unspecified; Z86.010 Personal history of colon polyps; K22.70 Barrett's esophagus without dysplasia
CPT/HCPCS: 76700

== ENCOUNTER → 2021-11-01 15:40 | Outpatient (CLI) | payer OTHER, SELFPAY ==
[2021-11-01 17:42] LABS: Absolute Lymphocyte Count 0.78 X10^3/uL (0.83-4.51); Absolute Neutrophil Count 2.4 X10^3/uL (2.0-7.7); Basophil# 0.01 X10^3/uL; Basophil% 0.3 % (0-1); Eosinophil# 0.05 X10^3/uL; Eosinophils% 1.4 % (0-5); Hematocrit 38.8 % (37-47); Hemoglobin 12.3 g/dL (12.0-15.0); Lymphocyte # 0.78 X10^3/ul (0.83-4.51); Lymphocyte % 22.6 % (19-41); Mean Corp Hgb Conc 31.7 g/dL (32-36); Mean Corpuscular Hgb 28.6 pg (27.0-32.0); Mean Corpuscular Volume 90.2 fL (81-99); Mean Platelet Vol. 10.2 fl (6.2-12.0); Monocyte# 0.19 X10^3/uL; Monocyte% 5.5 % (0-10); NRBC Flagged by Analyzer 0 % (0-5); Neutrophil # 2.41 X10^3/uL (2.7-7.7); Neutrophil % 69.9 % (47-70); POSITIVE COUNT YES; Platelet Count 93 K/mm3 (150-450); RBC Distribution Width CV 14.9 % (11.6-14.6); White Blood Count 3.5 K/mm3 (4.4-11.0)
[2021-11-01 17:43] LABS: Differential Indicated SCAN CRITERIA MET
[2021-11-01 17:55] LABS: ALB/GLOB Ratio 1.1 RATIO (0.9-2.4); AST(SGOT) 23 U/L (15-37); Alanine Aminotransfer ALT/SGPT 28 U/L (13-56); Albumin, Serum 4.1 g/dL (3.2-5.0); Alkaline Phosphatase 92 U/L (45-117); Anion Gap 6 (5-15); BUN 14 mg/dL (7-18); BUN/Creat Ratio 18.4 RATIO (10-20); Calcium,Total 9.7 mg/dL (8.5-10.1); Chloride 103 mmol/L (98-107); Creatinine, Serum 0.76 mg/dL (0.55-1.02); EST Glomerular Filtration Rate 82 mL/min (>60); Est Glom Filt Rate - Afr Amer 99 mL/min (>60); Globulin 3.8 g/dL (2.2-4.2); Glucose 163 mg/dL (74-106); Potassium 3.9 mmol/L (3.5-5.1); Protein, Total 7.9 g/dL (6.4-8.2); Sodium Level 139 mmol/L (136-145)
[2021-11-01 18:01] LABS: Differential Comment SCANNED
== END ==
PROVIDERS: PCP Family Medicine; Referring Provider Internal Medicine Rheumatology; Visit Provider Internal Medicine Rheumatology
DX: L40.59 Other psoriatic arthropathy (principal); M79.7 Fibromyalgia; R76.8 Other specified abnormal immunological findings in serum; L40.8 Other psoriasis; M21.40 Flat foot [pes planus] (acquired), unspecified foot; K21.9 Gastro-esophageal reflux disease without esophagitis; K76.0 Fatty (change of) liver, not elsewhere classified; I10 Essential (primary) hypertension; E11.9 Type 2 diabetes mellitus without complications; I48.0 Paroxysmal atrial fibrillation; F31.9 Bipolar disorder, unspecified; N39.46 Mixed incontinence; Z79.899 Other long term (current) drug therapy
CPT/HCPCS: 36415; 80053; 85025

== ENCOUNTER 2022-01-23 12:21 | Outpatient (CLI) | payer OTHER, SELFPAY ==
[2022-01-23 15:20] LABS: Absolute Lymphocyte Count 0.78 X10^3/uL (0.83-4.51); Absolute Neutrophil Count 2.4 X10^3/uL (2.0-7.7); Basophil# 0.01 X10^3/uL; Basophil% 0.3 % (0-1); Eosinophil# 0.06 X10^3/uL; Eosinophils% 1.8 % (0-5); Hematocrit 36.2 % (37-47); Hemoglobin 12.1 g/dL (12.0-15.0); Lymphocyte # 0.78 X10^3/ul (0.83-4.51); Lymphocyte % 22.8 % (19-41); Mean Corp Hgb Conc 33.4 g/dL (32-36); Mean Corpuscular Hgb 29.8 pg (27.0-32.0); Mean Corpuscular Volume 89.2 fL (81-99); Monocyte% 5.8 % (0-10); NRBC Flagged by Analyzer 0 % (0-5); Neutrophil # 2.36 X10^3/uL (2.7-7.7); POSITIVE COUNT YES; Platelet Count 90 K/mm3 (150-450); RBC Distribution Width SD 45.3 fl (35.1-43.9); Red Blood Count 4.06 M/mm3 (4.2-5.4); White Blood Count 3.4 K/mm3 (4.4-11.0)
[2022-01-23 15:40] LABS: Differential Indicated SCAN CRITERIA MET
[2022-01-23 15:52] LABS: ALB/GLOB Ratio 1.1 RATIO (0.9-2.4); AST(SGOT) 28 U/L (15-37); Alanine Aminotransfer ALT/SGPT 30 U/L (13-56); Albumin, Serum 4.1 g/dL (3.2-5.0); Alkaline Phosphatase 100 U/L (45-117); Anion Gap 6 (5-15); BUN 11 mg/dL (7-18); BUN/Creat Ratio 17.4 RATIO (10-20); Calcium,Total 9.2 mg/dL (8.5-10.1); Chloride 103 mmol/L (98-107); Creatinine, Serum 0.63 mg/dL (0.55-1.02); EST Glomerular Filtration Rate 101 mL/min (>60); Est Glom Filt Rate - Afr Amer 122 mL/min (>60); Globulin 3.8 g/dL (2.2-4.2); Glucose 117 mg/dL (74-106); Potassium 3.9 mmol/L (3.5-5.1); Protein, Total 7.9 g/dL (6.4-8.2); Sodium Level 138 mmol/L (136-145); Thyroid Stim Hormone (TSH) 1.61 uIU/mL (0.358-3.74)
[2022-01-23 18:15] LABS: Differential Comment SCANNED
== END 2022-01-23 23:59 | disposition home or self-care (01) ==
LOC: MTLAB 12:24
PROVIDERS: PCP Family Medicine; Referring Provider Psychiatry & Neurology Psychiatry; Visit Provider Psychiatry & Neurology Psychiatry
DX: L40.59 Other psoriatic arthropathy (principal); F31.9 Bipolar disorder, unspecified; I48.0 Paroxysmal atrial fibrillation; E11.9 Type 2 diabetes mellitus without complications; M79.7 Fibromyalgia; R76.8 Other specified abnormal immunological findings in serum; L40.8 Other psoriasis; M21.40 Flat foot [pes planus] (acquired), unspecified foot; K21.9 Gastro-esophageal reflux disease without esophagitis; K76.0 Fatty (change of) liver, not elsewhere classified; I10 Essential (primary) hypertension; N39.46 Mixed incontinence; Z79.899 Other long term (current) drug therapy
CPT/HCPCS: 36415; 80053; 80178; 84443; 85025

== ENCOUNTER 2022-01-30 10:47 | Outpatient (CLI) | payer OTHER, SELFPAY ==
[2022-01-30 12:24] LABS: Absolute Lymphocyte Count 0.87 X10^3/uL (0.83-4.51); Absolute Neutrophil Count 2.1 X10^3/uL (2.0-7.7); Basophil# 0.01 X10^3/uL; Basophil% 0.3 % (0-1); Eosinophil# 0.08 X10^3/uL; Eosinophils% 2.5 % (0-5); Hematocrit 37.6 % (37-47); Hemoglobin 12.3 g/dL (12.0-15.0); Lymphocyte # 0.87 X10^3/ul (0.83-4.51); Lymphocyte % 26.7 % (19-41); Mean Corp Hgb Conc 32.7 g/dL (32-36); Mean Corpuscular Hgb 29.7 pg (27.0-32.0); Mean Corpuscular Volume 90.8 fL (81-99); Mean Platelet Vol. 9.9 fl (6.2-12.0); Monocyte# 0.21 X10^3/uL; Monocyte% 6.4 % (0-10); NRBC Flagged by Analyzer 0 % (0-5); Neutrophil # 2.07 X10^3/uL (2.7-7.7); Neutrophil % 63.5 % (47-70); POSITIVE COUNT YES; Platelet Count 96 K/mm3 (150-450); RBC Distribution Width CV 14.3 % (11.6-14.6); RBC Distribution Width SD 47.3 fl (35.1-43.9); Red Blood Count 4.14 M/mm3 (4.2-5.4); White Blood Count 3.3 K/mm3 (4.4-11.0)
== END 2022-01-30 23:59 | disposition home or self-care (01) ==
LOC: MTLAB 10:50
PROVIDERS: PCP Family Medicine; Referring Provider Internal Medicine Rheumatology; Visit Provider Internal Medicine Rheumatology
DX: L40.59 Other psoriatic arthropathy (principal); M79.7 Fibromyalgia; R76.8 Other specified abnormal immunological findings in serum; L40.8 Other psoriasis; M21.40 Flat foot [pes planus] (acquired), unspecified foot; K21.9 Gastro-esophageal reflux disease without esophagitis; Z79.899 Other long term (current) drug therapy
CPT/HCPCS: 36415; 85025

== ENCOUNTER → 2022-07-05 | Outpatient (CLI) | payer OTHER, SELFPAY ==
[2022-07-05 12:10] LABS: Absolute Lymphocyte Count 0.84 X10^3/uL (0.83-4.51); Absolute Neutrophil Count 2.7 X10^3/uL (2.0-7.7); Basophil# 0.01 X10^3/uL; Basophil% 0.3 % (0-1); Eosinophil# 0.08 X10^3/uL; Hematocrit 39.4 % (37-47); Lymphocyte # 0.84 X10^3/ul (0.83-4.51); Lymphocyte % 21.5 % (19-41); Mean Corpuscular Hgb 29.6 pg (27.0-32.0); Mean Corpuscular Volume 89.7 fL (81-99); Mean Platelet Vol. 9.5 fl (6.2-12.0); Monocyte# 0.22 X10^3/uL; Monocyte% 5.6 % (0-10); NRBC Flagged by Analyzer 0 % (0-5); Neutrophil # 2.73 X10^3/uL (2.7-7.7); Neutrophil % 69.8 % (47-70); POSITIVE COUNT YES; Platelet Count 95 K/mm3 (150-450); RBC Distribution Width CV 14.1 % (11.6-14.6); RBC Distribution Width SD 46.5 fl (35.1-43.9); Red Blood Count 4.39 M/mm3 (4.2-5.4); White Blood Count 3.9 K/mm3 (4.4-11.0)
[2022-07-05 12:46] LABS: ALB/GLOB Ratio 1.1 RATIO (0.9-2.4); AST(SGOT) 23 U/L (15-37); Alanine Aminotransfer ALT/SGPT 26 U/L (13-56); Albumin, Serum 4.1 g/dL (3.2-5.0); Alkaline Phosphatase 96 U/L (45-117); Anion Gap 6 (5-15); BUN 13 mg/dL (7-18); BUN/Creat Ratio 17.2 RATIO (10-20); Calcium,Total 9.8 mg/dL (8.5-10.1); Chloride 102 mmol/L (98-107); Creatinine, Serum 0.76 mg/dL (0.55-1.02); EST Glomerular Filtration Rate 82 mL/min (>60); Est Glom Filt Rate - Afr Amer 99 mL/min (>60); Globulin 3.8 g/dL (2.2-4.2); Glucose 161 mg/dL (74-106); Potassium 3.6 mmol/L (3.5-5.1); Protein, Total 7.9 g/dL (6.4-8.2); Sodium Level 138 mmol/L (136-145)
== END | disposition home or self-care (01) ==
LOC: MTLAB 11:21
PROVIDERS: PCP Family Medicine; Referring Provider Psychiatry & Neurology Psychiatry; Visit Provider Psychiatry & Neurology Psychiatry
DX: L40.59 Other psoriatic arthropathy (principal); M79.7 Fibromyalgia; R76.8 Other specified abnormal immunological findings in serum; L40.8 Other psoriasis; M21.40 Flat foot [pes planus] (acquired), unspecified foot; K21.9 Gastro-esophageal reflux disease without esophagitis; K76.0 Fatty (change of) liver, not elsewhere classified; Z79.899 Other long term (current) drug therapy; Z51.81 Encounter for therapeutic drug level monitoring
CPT/HCPCS: 36415; 80053; 80178; 84443; 85025

== ENCOUNTER → 2022-10-29 | Outpatient (CLI) | payer OTHER, SELFPAY ==
[2022-10-29 15:18] LABS: Absolute Lymphocyte Count 0.78 X10^3/uL (0.83-4.51); Absolute Neutrophil Count 2.2 X10^3/uL (2.0-7.7); Basophil# 0.01 X10^3/uL; Basophil% 0.3 % (0-1); Eosinophil# 0.06 X10^3/uL; Eosinophils% 1.8 % (0-5); Hematocrit 37.4 % (37-47); Lymphocyte # 0.78 X10^3/ul (0.83-4.51); Lymphocyte % 23.9 % (19-41); Mean Corp Hgb Conc 32.1 g/dL (32-36); Mean Corpuscular Hgb 28.8 pg (27.0-32.0); Mean Corpuscular Volume 89.7 fL (81-99); Mean Platelet Vol. 9.9 fl (6.2-12.0); Monocyte% 6.1 % (0-10); NRBC Flagged by Analyzer 0 % (0-5); Neutrophil # 2.21 X10^3/uL (2.7-7.7); Neutrophil % 67.6 % (47-70); Platelet Count 102 K/mm3 (150-450); RBC Distribution Width CV 14.4 % (11.6-14.6); Red Blood Count 4.17 M/mm3 (4.2-5.4); White Blood Count 3.3 K/mm3 (4.4-11.0)
[2022-10-29 15:31] LABS: ALB/GLOB Ratio 1.4 RATIO (0.9-2.4); AST(SGOT) 17 U/L (15-37); Alanine Aminotransfer ALT/SGPT 22 U/L (13-56); Albumin, Serum 4.3 g/dL (3.2-5.0); Alkaline Phosphatase 88 U/L (45-117); Anion Gap 5 (5-15); BUN 13 mg/dL (7-18); BUN/Creat Ratio 20.3 RATIO (10-20); Calcium,Total 9.7 mg/dL (8.5-10.1); Chloride 107 mmol/L (98-107); Creatinine, Serum 0.64 mg/dL (0.55-1.02); EST Glomerular Filtration Rate 99 mL/min (>60); Est Glom Filt Rate - Afr Amer 120 mL/min (>60); Glucose 115 mg/dL (74-106); Potassium 4.1 mmol/L (3.5-5.1); Protein, Total 7.3 g/dL (6.4-8.2); Sodium Level 140 mmol/L (136-145)
== END | disposition home or self-care (01) ==
LOC: MTLAB 11:55
PROVIDERS: PCP Family Medicine; Referring Provider Internal Medicine Rheumatology; Visit Provider Internal Medicine Rheumatology
DX: L40.59 Other psoriatic arthropathy (principal); F31.9 Bipolar disorder, unspecified; I48.0 Paroxysmal atrial fibrillation; E11.9 Type 2 diabetes mellitus without complications; M79.7 Fibromyalgia; R76.8 Other specified abnormal immunological findings in serum; L40.8 Other psoriasis; M21.40 Flat foot [pes planus] (acquired), unspecified foot; K21.9 Gastro-esophageal reflux disease without esophagitis; K76.0 Fatty (change of) liver, not elsewhere classified; I10 Essential (primary) hypertension; N39.46 Mixed incontinence; Z79.899 Other long term (current) drug therapy
CPT/HCPCS: 36415; 80053; 85025

== ENCOUNTER → 2023-02-21 | Outpatient (CLI) | payer OTHER, SELFPAY ==
[2023-02-21 15:45] LABS: Anion Gap 5 (5-15); BUN 14 mg/dL (7-18); BUN/Creat Ratio 18.8 RATIO (10-20); Chloride 105 mmol/L (98-107); Creatinine, Serum 0.75 mg/dL (0.55-1.02); EST Glomerular Filtration Rate 83 mL/min (>60); Est Glom Filt Rate - Afr Amer 101 mL/min (>60); Glucose 157 mg/dL (74-106); Sodium Level 137 mmol/L (136-145); Thyroid Stim Hormone (TSH) 1.13 uIU/mL (0.358-3.74)
== END | disposition home or self-care (01) ==
LOC: MTLAB 11:50
PROVIDERS: PCP Family Medicine; Referring Provider Psychiatry & Neurology Psychiatry; Visit Provider Psychiatry & Neurology Psychiatry
DX: Z51.81 Encounter for therapeutic drug level monitoring (principal)
CPT/HCPCS: 36415; 80048; 80178; 84443

== ENCOUNTER → 2023-04-29 | Outpatient (CLI) | payer OTHER, SELFPAY ==
[2023-04-29 12:07] LABS: Absolute Lymphocyte Count 0.54 X10^3/uL (0.83-4.51); Absolute Neutrophil Count 2.3 X10^3/uL (2.0-7.7); Eosinophil# 0.04 X10^3/uL; Eosinophils% 1.3 % (0-5); Hematocrit 40.4 % (37-47); Hemoglobin 12.7 g/dL (12.0-15.0); Lymphocyte # 0.54 X10^3/ul (0.83-4.51); Lymphocyte % 17.8 % (19-41); Mean Corp Hgb Conc 31.4 g/dL (32-36); Mean Corpuscular Hgb 28.4 pg (27.0-32.0); Mean Corpuscular Volume 90.4 fL (81-99); Mean Platelet Vol. 10.2 fl (6.2-12.0); Monocyte# 0.17 X10^3/uL; Monocyte% 5.6 % (0-10); NRBC Flagged by Analyzer 0 % (0-5); Neutrophil # 2.26 X10^3/uL (2.7-7.7); Neutrophil % 74.6 % (47-70); POSITIVE COUNT YES; POSITIVE DIFFERENTIAL YES; Platelet Count 92 K/mm3 (150-450); RBC Distribution Width CV 14.1 % (11.6-14.6); RBC Distribution Width SD 46.4 fl (35.1-43.9); Red Blood Count 4.47 M/mm3 (4.2-5.4)
[2023-04-29 12:10] LABS: Differential Indicated SCAN CRITERIA MET
[2023-04-29 12:16] LABS: ALB/GLOB Ratio 1.2 RATIO (0.9-2.4); AST(SGOT) 23 U/L (15-37); Alanine Aminotransfer ALT/SGPT 25 U/L (13-56); Albumin, Serum 4.1 g/dL (3.2-5.0); Alkaline Phosphatase 107 U/L (45-117); Anion Gap -3 (5-15); BUN 12 mg/dL (7-18); Calcium,Total 9.8 mg/dL (8.5-10.1); Chloride 109 mmol/L (98-107); Creatinine, Serum 0.67 mg/dL (0.55-1.02); EST Glomerular Filtration Rate 95 mL/min (>60); Est Glom Filt Rate - Afr Amer 115 mL/min (>60); Globulin 3.3 g/dL (2.2-4.2); Glucose 212 mg/dL (74-106); Potassium 3.9 mmol/L (3.5-5.1); Protein, Total 7.4 g/dL (6.4-8.2); Sodium Level 135 mmol/L (136-145)
[2023-04-29 12:39] LABS: Platelet Estimate MOD DEC (ADEQ)
[2023-04-30 13:48] LABS: Pathologist Review Reviewed
== END | disposition home or self-care (01) ==
LOC: MTLAB 10:48
PROVIDERS: PCP Family Medicine; Referring Provider Internal Medicine Rheumatology; Visit Provider Internal Medicine Rheumatology
DX: L40.59 Other psoriatic arthropathy (principal); R76.8 Other specified abnormal immunological findings in serum; L40.8 Other psoriasis; K76.0 Fatty (change of) liver, not elsewhere classified; Z79.899 Other long term (current) drug therapy
CPT/HCPCS: 36415; 80053; 85025

== ENCOUNTER 2023-05-08 18:02 | Emergency (ER) | payer OTHER, SELFPAY ==
[2023-05-08 18:03] VITALS: BP 139/71; PULSE 74; RESP 14; TEMP 36.1; O2SAT 97; BMI 39.6
--- NOTE | 2023-05-08 18:26 | CT_ITS ---
EXAM: CT ABDOMEN AND PELVIS WITH INTRAVENOUS CONTRAST CLINICAL INDICATION: abd pain -- IV PO Contrast TECHNIQUE: Helically acquired images were obtained of the abdomen and pelvis with intravenous contrast. This CT exam was performed using one or more of the following dose reduction techniques: automated exposure control, adjustment of the mA and/or kV according to patient size, and/or use of iterative reconstruction technique. CONTRAST: Oral and amp; IV Gastrografin and amp; 100mL Isovue-300 COMPARISON: No relevant prior studies available. FINDINGS: LOWER THORAX: Normal. Lung bases are clear. No cardiomegaly. No pericardial effusion. ABDOMEN: LIVER: Prior dated 08/28/2016 liver again noted to be enlarged without space-occupying lesion. GALLBLADDER AND BILE DUCTS: Cholecystectomy clips are in place. PANCREAS: Normal. No focal cystic or solid mass. SPLEEN: Stable splenomegaly measuring 20 cm in cephalocaudad dimension. ADRENALS: Normal. No nodules. KIDNEYS AND URETERS: Normal. Normal renal size and position. No hydronephrosis. STOMACH AND BOWEL: Normal. No bowel distention. No focal inflammatory change. PELVIS: APPENDIX: No evidence of acute appendicitis. BLADDER: Urinary bladder is not adequately visualized secondary to significant artifacts from hip prosthesis. REPRODUCTIVE: Unremarkable as visualized. No mass. ABDOMEN and PELVIS: INTRAPERITONEAL SPACE: Normal. No ascites or other fluid collection. No free air. BONES/JOINTS: See above. SOFT TISSUES: Normal. No discrete abdominal or pelvic wall hernia. VASCULATURE: Normal. Abdominal aorta is non-dilated. LYMPH NODES: Normal. No enlarged lymph nodes. CT/Abdomen/Pelvis WITH Contrast IMPRESSION: Stable hepatosplenomegaly. Electronically Signed: Gildardo Shahid MD at 20:48 EDT ,
--- NOTE | 2023-05-08 18:27 | EX.ED.DYSGE1 ---
HPI History of Present Illness Chief Complaint: Abd Pain Informant: patient Onset/Context/Timing Onset: Days Context: Gradual Onset Timing: Waxes and wanes Maximum Severity: Moderate Narrative Narrative: Patient presents secondary to lower abdominal pain for the past week. She reports crampy pressure and bloated sensation in the lower abdomen. She had nausea but no vomiting. She has had diarrhea. She denies blood in her stool. She denies fever or chills. [facility] Medical History (Updated 05/08/23 @ 21:[address] Nora Holland MD) Abdominal wall abscess Bipolar disorder Diabetes mellitus, type II GERD (gastroesophageal reflux disease) Hypertension Morbid obesity with BMI of 45.0-49.9, adult Psoriasis Home Medications Nitrostat 0.4 mg sublingual PRN PRN Chest Pain 03/27/15 [History Last Taken 03/13/15] Protonix 40 mg PO DAILY Stomach acid 03/27/15 [History Last Taken 04/29/19] Zoloft 150 mg PO DAILY Depression 03/27/15 [History Last Taken 04/29/19] hydroxychloroquine 200 mg tablet 200 mg PO BIDCM Arthritis 10/20/18 [History Last Taken 04/29/19] lithium carbonate 450 mg tablet,extended release 1 tab PO BID mental health 11/24/18 [History Last Taken 04/29/19] empagliflozin 10 mg tablet (Jardiance) 10 mg PO DAILY DM 04/29/19 [History Last Taken Unknown] hydrochlorothiazide 12.5 mg tablet 12.5 mg PO DAILY BP 04/29/19 [History Last Taken 04/29/19] lithium carbonate 300 mg tablet,extended release 900 mg PO DAILY 04/18/21 [History Last Taken Unknown] potassium chloride 25 mEq oral packet 25 meq PO DAILY 04/18/21 [History Last Taken Unknown] desloratadine 5 mg disintegrating tablet 5 mg PO DAILY #30 tabs 07/11/21 [Rx Last Taken Unknown] Allergy/AdvReac Type Severity Reaction Status Date / Time No Known Allergies Allergy Verified 05/08/23 18:03 Social History Smoking Status: Never smoker ROS ROS ED Constitutional Constitutional ED: Denies chills or fever(s) Eyes Eyes: Denies change in vision or discharge from eye(s) ENT ENT ED: Denies discharge from eye(s), rhinorrhea or sore throat Cardiovascular Cardiovascular: Denies chest pain or palpitations Respiratory/Chest Respiratory/Chest: Denies cough or dyspnea Gastrointestinal Gastrointestinal: Reports abdominal pain, diarrhea and nausea; Denies vomiting Genitourinary Genitourinary ED: Denies difficulty urinating or dysuria Musculoskeletal Musculoskeletal: Denies back pain or extremity pain Integumentary Denies Abrasions or rash Neurologic Neurologic: Reports weakness; Denies headache(s) Psychiatric Psychiatric: Denies anxiety or depression Endocrine Endocrinology: Denies polydipsia or polyuria Allergic/Immunologic Allergic/Immunologic ED: Denies lip swelling or urticaria EXAM Physical Exam Const Vital Signs: 05/08/23 18:03 Temperature 97 F L Temperature Source Temporal Pulse Rate 74 Respiratory Rate 14 Blood Pressure 139/71 H Blood Pressure Mean 93 Pulse Ox 97 Oxygen Delivery Method Room Air Positive well nourished and well developed General Appearance ED: well developed HEENT Reports normocephalic and head/scalp atraumatic Eyes PERRL and EOMs intact bilaterally Neck supple Chest Wall inspection of chest normal and palpation of chest normal Resp normal respiratory effort and clear to auscultation bilaterally Cardio regular rate and regular rhythm GI non-tender Auscultation: hypoactive bowel sounds Palpation: soft Extremity normal to inspection Neuro oriented x3 and no sensory deficits noted Sensorium / Orientation: alert Motor Exam: strength 5/5 throughout Psych mental status grossly normal Skin no rashes or lesions noted MDM MDM MDM Narrative Medical decision making narrative: Patient is given Bentyl and Zofran for nausea and abdominal cramping. IV fluids were ordered. Labwork obtained to evaluate for leukocytosis, anemia, and electrolyte derangement. Urinalysis obtained to evaluate for infection/hematuria. CT scan of the abdomen pelvis obtained to evaluate for possible diverticulitis. Lab Data Attestation: I reviewed the patient's lab results. Labs: Laboratory Results - last 24 hr 05/08/23 05/08/23 05/08/23 18:30 18:30 19:50 WBC 4.2 L RBC 4.33 Hgb 12.4 Hct 38.9 MCV 89.8 MCH 28.6 MCHC 31.9 L RDW Std Deviation 45.8 H RDW Coeff of Tacho 13.8 Plt Count 83 L MPV 9.9 Immature Gran % (Auto) 0.500 Neut % (Auto) 68.7 Lymph % (Auto) 21.9 [place] % (Auto) 7.0 Eos % (Auto) 1.7 Baso % (Auto) 0.2 Absolute Neuts (auto) 2.9 Absolute Lymphs (auto) 0.91 Nucleated RBC % 0 Sodium 139 Potassium 3.8 Chloride 106 Carbon Dioxide 27.0 Anion Gap 6 BUN 11 Creatinine 0.74 Estim Creat Clear Calc 64.37 Est GFR (MDRD) Af Amer 102 Est GFR (MDRD) Non-Af 84 BUN/Creatinine Ratio 14.9 Glucose 121 H Calcium 10.1 Urine Color Yellow Urine Clarity Clear Urine pH 6.5 Ur Specific [place] 1.010 Urine Protein 15 H Urine Glucose (UA) 250 H Urine Ketones Negative Urine Occult Blood 10 H Urine Nitrite Negative Urine Bilirubin Negative Urine Urobilinogen Normal Ur Leukocyte Esterase Negative Urine RBC 0 SEEN Urine WBC 0 SEEN Ur Squamous Epith Cells 0-5 SEEN Urine Bacteria 0 SEEN Urine Mucus 0 SEEN Radiography Diagnostic Testing: Clinical Impression(s) from Imaging Studies Abdomen/Pelvis CT 05/08/23 18:26 IMPRESSION: Stable hepatosplenomegaly. Electronically Signed: Gildardo Shahid MD at 20:48 EDT , Treatment and Re-Evaluation :: CBC reveals a white count of 4.2. Hemoglobin is normal. Chemistry studies unremarkable. Glucose is 121. Urinalysis reveals no evidence of infection. CT scan of the abdomen pelvis with p.o. and IV contrast obtained. There is evidence of stable hepatomegaly but no acute findings noted at this time. On repeat evaluation patient resting comfortably. She is reassured with our findings. She will continue supportive care and return instructions have been provided. Discharge Plan Triage Chief Complaint: Abd Pain ED Provider: Nora Holland Dx/Rx/DC Orders Clinical Impression: Viral gastroenteritis Instructions: ED Gastroenteritis, Viral (Adult) Prescriptions: No Action Protonix 40 mg PO DAILY Label Comments: gerd Zoloft 150 mg PO DAILY Label Comments: depression Nitrostat 0.4 mg sublingual PRN PRN (Reason: Chest Pain) Label Comments: chest pain hydroxychloroquine 200 MG tablet 200 mg PO BIDCM lithium carbonate 450 MG tablet extended release 1 tab PO BID hydrochlorothiazide 12.5 MG tablet 12.5 mg PO DAILY Jardiance 10 MG tablet 10 mg PO DAILY potassium chloride 25 mEq Packet 25 meq PO DAILY lithium carbonate 300 mg Tablet Extended Release 900 mg PO DAILY desloratadine 5 mg tablet,disintegrating 5 mg PO DAILY Qty: 30 0RF Primary Care Provider: Yandel Cabrera Referrals: Yandel Cabrera MD [Primary Care Provider] - 1 Week if not improving Disposition Disposition: Home, Self Care
[2023-05-08] MEDS: 0.9% Normal Saline 1,000 ML 150 ML IV (18:38)
[2023-05-08] MEDS: Ondansetron 4 MG/2 ML Vial IV (18:38)
[2023-05-08] MEDS: Dicyclomine 20 MG/2 ML Vial IM (18:38)
[2023-05-08 18:49] LABS: Absolute Lymphocyte Count 0.91 X10^3/uL (0.83-4.51); Absolute Neutrophil Count 2.9 X10^3/uL (2.0-7.7); Basophil# 0.01 X10^3/uL; Basophil% 0.2 % (0-1); Eosinophil# 0.07 X10^3/uL; Eosinophils% 1.7 % (0-5); Hematocrit 38.9 % (37-47); Hemoglobin 12.4 g/dL (12.0-15.0); Lymphocyte # 0.91 X10^3/ul (0.83-4.51); Lymphocyte % 21.9 % (19-41); Mean Corp Hgb Conc 31.9 g/dL (32-36); Mean Corpuscular Hgb 28.6 pg (27.0-32.0); Mean Corpuscular Volume 89.8 fL (81-99); Mean Platelet Vol. 9.9 fl (6.2-12.0); Monocyte# 0.29 X10^3/uL; NRBC Flagged by Analyzer 0 % (0-5); Neutrophil # 2.85 X10^3/uL (2.7-7.7); Neutrophil % 68.7 % (47-70); POSITIVE COUNT YES; Platelet Count 83 K/mm3 (150-450); RBC Distribution Width CV 13.8 % (11.6-14.6); RBC Distribution Width SD 45.8 fl (35.1-43.9); Red Blood Count 4.33 M/mm3 (4.2-5.4); White Blood Count 4.2 K/mm3 (4.4-11.0)
[2023-05-08 19:01] LABS: Anion Gap 6 (5-15); BUN 11 mg/dL (7-18); BUN/Creat Ratio 14.9 RATIO (10-20); Calcium,Total 10.1 mg/dL (8.5-10.1); Chloride 106 mmol/L (98-107); Creatinine, Serum 0.74 mg/dL (0.55-1.02); EST Glomerular Filtration Rate 84 mL/min (>60); Est Glom Filt Rate - Afr Amer 102 mL/min (>60); Estimated Creatinine Clearance 64.37 ml/min; Glucose 121 mg/dL (74-106); Potassium 3.8 mmol/L (3.5-5.1); Sodium Level 139 mmol/L (136-145)
[2023-05-08 20:05] LABS: Bacteria 0 SEEN /hpf (None Seen); Mucous, Urine 0 SEEN /hpf (<or=2+); Red Blood Cells-Urine 0 SEEN /hpf (0-5); White Blood Cells 0 SEEN /hpf (0-5)
[2023-05-08 20:13] LABS: Color, Urine Yellow (Yellow); Glucose, Dipstick 250 mg/dl (Normal); Ketone-Dipstick Negative (Negative); Leukocyte Esterase-Dipstick Negative /ul (Negative); Nitrite-Dipstick Negative (Negative); Occult Blood-Urine 10 /ul (Negative); Protein-Dipstick 15 mg/dl (Negative); Urine Bilirubin Dipstick Negative (Negative); Urine Clarity Clear (Clear); Urine Urobilinogen Normal (Normal); Urine pH 6.5 (5.0 - 8.0)
[2023-05-08 20:19] LABS: Squamous Epithelial Cells - UA 0-5 SEEN /hpf (5-10)
== END 2023-05-08 21:37 | disposition home or self-care (01) ==
PROVIDERS: Emergency Provider Emergency Medicine; PCP Family Medicine; Visit Provider Emergency Medicine
DX: A08.4 Viral intestinal infection, unspecified (principal); E11.9 Type 2 diabetes mellitus without complications; I10 Essential (primary) hypertension
CPT/HCPCS: 74177; 80048; 81001; 85025; 96361; 96372; 96374; 99284; J7030; Q9967; A4216; J2405

== ENCOUNTER → 2024-02-20 | Outpatient (CLI) | payer OTHER, SELFPAY ==
[2024-02-20 15:45] LABS: Absolute Lymphocyte Count 0.85 X10^3/uL (0.83-4.51); Absolute Neutrophil Count 3.3 X10^3/uL (2.0-7.7); Basophil# 0.02 X10^3/uL; Basophil% 0.4 % (0-1); Eosinophil# 0.06 X10^3/uL; Eosinophils% 1.3 % (0-5); Hemoglobin 12.2 g/dL (12.0-15.0); Lymphocyte # 0.85 X10^3/ul (0.83-4.51); Lymphocyte % 18.7 % (19-41); Mean Corp Hgb Conc 31.3 g/dL (32-36); Mean Corpuscular Hgb 26.2 pg (27.0-32.0); Mean Corpuscular Volume 83.9 fL (81-99); Mean Platelet Vol. 11.6 fl (6.2-12.0); Monocyte# 0.28 X10^3/uL; Monocyte% 6.2 % (0-10); NRBC Flagged by Analyzer 0 % (0-5); Neutrophil # 3.32 X10^3/uL (2.7-7.7); POSITIVE COUNT YES; Platelet Count 99 K/mm3 (150-450); RBC Distribution Width CV 14.7 % (11.6-14.6); RBC Distribution Width SD 44.8 fl (35.1-43.9); Red Blood Count 4.65 M/mm3 (4.2-5.4); White Blood Count 4.6 K/mm3 (4.4-11.0)
[2024-02-20 15:50] LABS: Differential Indicated SCAN CRITERIA MET
[2024-02-20 16:15] LABS: AST(SGOT) 44 U/L (15-37); Alanine Aminotransfer ALT/SGPT 33 U/L (13-56); Albumin, Serum 3.9 g/dL (3.2-5.0); Alkaline Phosphatase 143 U/L (45-117); Anion Gap 7 (5-15); BUN 12 mg/dL (7-18); BUN/Creat Ratio 15.2 RATIO (10-20); Calcium,Total 9.6 mg/dL (8.5-10.1); Chloride 105 mmol/L (98-107); Creatinine, Serum 0.79 mg/dL (0.55-1.02); EST Glomerular Filtration Rate 78 mL/min (>60); Est Glom Filt Rate - Afr Amer 94 mL/min (>60); Globulin 4.1 g/dL (2.2-4.2); Glucose 219 mg/dL (74-106); Potassium 3.8 mmol/L (3.5-5.1); Sodium Level 138 mmol/L (136-145)
[2024-02-20 16:31] LABS: Anisocytosis RARE; Platelet Estimate MOD DEC (ADEQ); Red Cell Morphology N CHROM NORMAL (NORM C&C)
[2024-02-24 19:07] LABS: G6PD Quant Test 262 (127-427)
== END | disposition home or self-care (01) ==
LOC: MTLAB 12:36
PROVIDERS: PCP Family Medicine; Referring Provider Internal Medicine Rheumatology; Visit Provider Internal Medicine Rheumatology
DX: L40.59 Other psoriatic arthropathy (principal); M79.7 Fibromyalgia; Z79.899 Other long term (current) drug therapy
CPT/HCPCS: 36415; 80053; 82955; 85025

== ENCOUNTER → 2024-02-21 | Outpatient (CLI) | payer OTHER, SELFPAY ==
[2024-02-25 08:10] LABS: QNTFERON TB Mitogen Value > 10.00 IU/mL (.); QNTFERON TB Nil Value 0 IU/mL (.); QNTFERON TB1+ Ag Value 0.06 IU/mL (.); QNTIFERON TB Positive Criteria Negative (Negative)
== END | disposition home or self-care (01) ==
LOC: MTLAB 12:37
PROVIDERS: PCP Family Medicine; Referring Provider Internal Medicine Rheumatology; Visit Provider Internal Medicine Rheumatology
DX: L40.59 Other psoriatic arthropathy (principal); M79.7 Fibromyalgia; Z79.899 Other long term (current) drug therapy
CPT/HCPCS: 36415; 86480

== ENCOUNTER → 2024-08-20 | Outpatient (CLI) | payer OTHER, SELFPAY ==
[2024-08-20 15:22] LABS: Absolute Lymphocyte Count 0.58 X10^3/uL (0.83-4.51); Basophil# 0.01 X10^3/uL; Basophil% 0.4 % (0-1); Eosinophil# 0.03 X10^3/uL; Eosinophils% 1.1 % (0-5); Hemoglobin 11.6 g/dL (12.0-15.0); Lymphocyte # 0.58 X10^3/ul (0.83-4.51); Lymphocyte % 20.6 % (19-41); Mean Corp Hgb Conc 31.4 g/dL (32-36); Mean Corpuscular Hgb 27.2 pg (27.0-32.0); Mean Corpuscular Volume 86.9 fL (81-99); Mean Platelet Vol. 10.7 fl (6.2-12.0); Monocyte# 0.17 X10^3/uL; NRBC Flagged by Analyzer 0 % (0-5); Neutrophil # 2.01 X10^3/uL (2.7-7.7); Neutrophil % 71.2 % (47-70); POSITIVE COUNT YES; POSITIVE DIFFERENTIAL YES; Platelet Count 70 K/mm3 (150-450); RBC Distribution Width CV 14.7 % (11.6-14.6); RBC Distribution Width SD 46.7 fl (35.1-43.9); Red Blood Count 4.26 M/mm3 (4.2-5.4); White Blood Count 2.8 K/mm3 (4.4-11.0)
[2024-08-20 15:42] LABS: Differential Indicated SCAN CRITERIA MET
[2024-08-20 15:56] LABS: ALB/GLOB Ratio 1.1 RATIO (0.9-2.4); AST(SGOT) 39 U/L (15-37); Alanine Aminotransfer ALT/SGPT 41 U/L (13-56); Alkaline Phosphatase 117 U/L (45-117); Anion Gap 7 (5-15); BUN 15 mg/dL (7-18); BUN/Creat Ratio 22.2 RATIO (10-20); Calcium,Total 9.5 mg/dL (8.5-10.1); Chloride 109 mmol/L (98-107); Creatinine, Serum 0.68 mg/dL (0.55-1.02); EST Glomerular Filtration Rate 93 mL/min (>60); Est Glom Filt Rate - Afr Amer 113 mL/min (>60); Globulin 3.7 g/dL (2.2-4.2); Glucose 145 mg/dL (74-106); Potassium 4.1 mmol/L (3.5-5.1); Protein, Total 7.7 g/dL (6.4-8.2); Sodium Level 141 mmol/L (136-145)
[2024-08-20 16:02] LABS: Differential Comment SCANNED
[2024-08-21 16:11] LABS: Pathologist Review Reviewed
== END | disposition home or self-care (01) ==
PROVIDERS: PCP Family Medicine; Referring Provider Internal Medicine Rheumatology; Visit Provider Internal Medicine Rheumatology
DX: L40.59 Other psoriatic arthropathy (principal); L40.8 Other psoriasis; R76.8 Other specified abnormal immunological findings in serum; Z79.899 Other long term (current) drug therapy
CPT/HCPCS: 36415; 80053; 85025

== ENCOUNTER 2024-08-24 10:21 | Inpatient (IN) | payer OTHER, SELFPAY ==
[2024-08-24 10:22] VITALS: BP 128/103; PULSE 78; RESP 16; TEMP 36.8; O2SAT 98; BMI 42.0
--- NOTE | 2024-08-24 10:42 | EKG12_ITS ---
Test Reason : Blood Pressure : / mmHG Vent. Rate : 074 BPM Atrial Rate : 074 BPM P-R Int : 190 ms QRS Dur : 092 ms QT Int : 356 ms P-R-T Axes : 058 -40 145 degrees QTc Int : 395 ms Normal sinus rhythm Left axis deviation Anterior infarct (cited on or before 04-DEC-2020) Abnormal ECG Confirmed by MAUREEN BARRON, ERASMO ([id number]), editor managing newspaper NICOLE PINTO ([id number]) on 08/25/2024 8:40:47 AM Referred By: AMY Confirmed By:ERASMO REDDY MD
--- NOTE | 2024-08-24 11:07 | EDS_ITS ---
HPI History of Present Illness Chief Complaint: GI Bleed Detail of Chief Complaint: Crampy abdominal pain and diarrhea since Saturday Informant: patient Onset/Context/Timing Onset: Days Context: Sudden Onset Timing: Intermittent Quality: 30 bloody stools since Saturday Location: Lower GI Current Severity: Moderate Worsened by: Nothing Relieved by: Nothing Associated Symptoms Associated Symptoms: Lightheadedness and thirst Narrative Narrative: Patient is a 63-year-old woman. Her last colonoscopy was 2 years ago. She had polyps removed at that time. I was performed by GI specialist affiliated with the [facility]. She contacted her doctor recommended she come to the emergency department. She states she is passing bright red blood and clots. She states she has history of hemorrhoids. This is not hemorrhoidal bleeding. She states the last couple of episodes were associated with mucus. She is on no antithrombotic or anticoagulant. She denies bruising easily. She denies blood in her urine. Denies bleeding from her gums. She denies dyspnea on exertion. She denies orthopnea or PND. She denies chest discomfort with activity. She denies nausea or vomiting. Prior similar symptoms: No Recent Illness/Hospitalization: No [facility] Medical History Abnormal colonoscopy Psoriasis Abdominal wall abscess Hypertension GERD (gastroesophageal reflux disease) Bipolar disorder Diabetes mellitus, type II Morbid obesity with BMI of 45.0-49.9, adult Home Medications ?Medication ?Instructions ?Recorded ?Last Taken ?Type Nitrostat 0.4 mg sublingual PRN PRN Chest 03/27/15 03/13/15 History Pain glipizide 10 mg tablet, extended 10 mg PO DAILY 08/24/24 08/24/24 History release 24 hr mirabegron 50 mg tablet,extended 50 mg PO DAILY 08/24/24 08/24/24 History release 24 hr olanzapine 7.5 mg tablet 7.5 mg PO QHS 08/24/24 08/23/24 History omeprazole 40 mg capsule,delayed 40 mg PO BID 08/24/24 08/24/24 History release semaglutide 2 mg/dose (8 mg/3 mL) 2 mg subcut QWEEK 08/24/24 08/20/24 History subcutaneous pen injector (Ozempic) sertraline 100 mg tablet 150 mg PO DAILY 08/24/24 08/24/24 History Allergy/AdvReac Type Severity Reaction Status Date / Time No Known Allergies Allergy Verified 08/24/24 10:22 Social History household members: spouse Smoking Status: Never smoker ROS ROS ED Constitutional Constitutional ED: Denies chills, fever(s), subjective or sweats Eyes Eyes: Denies blurry vision or change in vision ENT ENT ED: Denies rhinorrhea Cardiovascular Cardiovascular: Denies chest pain, orthopnea, palpitations or paroxysmal nocturnal dyspnea Respiratory/Chest Respiratory/Chest: Denies cough, dyspnea, dyspnea on exertion, orthopnea or paroxysmal nocturnal dyspnea Gastrointestinal Gastrointestinal: Reports abdominal pain, diarrhea and other Details: Hematochezia ; Denies constipation, melena, nausea or vomiting Genitourinary Genitourinary ED: Denies dysuria, hematuria or urinary frequency Musculoskeletal Musculoskeletal: Denies back pain Integumentary Denies rash Hematologic/Lymphatic Hematologic/Lymphatic: Reports systems reviewed and no addt'l complaints, except as documented EXAM Physical Exam Const Vital Signs: 08/24/24 10:22 Temperature 98.2 F Temperature Source Oral Pulse Rate 78 Respiratory Rate 16 Blood Pressure 128/103 H Blood Pressure Mean 111 Pulse Ox 98 Oxygen Delivery Method Room Air Positive well nourished and well developed General Appearance ED: well developed, NAD and pallor HEENT Reports moist mucous membranes HEENT Narrative: Posterior pharynx is normal. Uvula is midline. No deviation with protrusion. Ears are normal. Nares patent. Eyes PERRL and EOMs intact bilaterally General Eye ED: Negative for pale conjunctiva or scleral icterus Neck no lymphadenopathy, supple and no JVD Chest Wall inspection of chest normal and palpation of chest normal Resp normal respiratory effort and clear to auscultation bilaterally Cardio regular rate, regular rhythm, S1 normal heart sound, S2 normal heart sound and no murmurs GI normal to inspection, nondistended, normoactive bowel sounds, non-tender, non- distended and no masses; Negative for hepatosplenomegaly Inspection: Negative for abdominal distention Auscultation: hyperactive bowel sounds Back/Spine no CVA tenderness Extremity General Extremety ED: Negative for edema General Extremity: Negative for edema Neuro oriented x3, CN's II-XII intact bilaterally and no sensory deficits noted Sensorium / Orientation: alert Motor Exam: strength 5/5 throughout Psych mental status grossly normal Skin no rashes or lesions noted, no wounds and skin turgor normal General Skin Exam: pallor; Negative for jaundice MDM MDM MDM Narrative Medical decision making narrative: There was evidence of old external hemorrhoids. On rectal exam there was no material in the vault. There is no evidence of blood either. For this reason anoscopy was performed. Please see procedure note. In light of the fact the patient had 30 bloody episodes since Saturday CBC was obtained assess H&H. Coags were obtained as well as BMP to assess BUN to creatinine ratio and because she complains of lightheadedness to assess renal function and electrolytes specifically for hypokalemia. Patient was typed and screened. Dr. Perez was made aware of the patient. History & Record Review Additional record(s) reviewed:: Prior outpatient record and Prior labs Lab Data Attestation: I reviewed the patient's lab results. Lab results narrative: CBC reveals mild anemia with an H&H 11.1 and 34.6, this is patient's baseline. Patient's white count is 2.1. Recent CBCs were remarkable for low white blood cell count. Differential is normal. Basic metabolic panel is remarked for glucose of 180 with normal CO2 anion gap. Liver enzymes are normal. Coags are normal. Labs: Laboratory Results - last 24 hr 08/24/24 10:50 WBC 2.1 L RBC 4.03 L Hgb 11.1 L Hct 34.6 L MCV 85.9 MCH 27.5 MCHC 32.1 RDW Std Deviation 46.0 H RDW Coeff of [place] 14.6 Plt Count 62 L MPV 9.6 Immature Gran % (Auto) 0.500 Neut % (Auto) 69.9 Lymph % (Auto) 21.6 [place] % (Auto) 6.6 Eos % (Auto) 0.9 Baso % (Auto) 0.5 Absolute Neuts (auto) 1.5 L Absolute Lymphs (auto) 0.46 L Nucleated RBC % 0 PT 14.5 INR 1.1 APTT 33.7 Sodium 142 Potassium 3.7 Chloride 109 H Carbon Dioxide 26.0 Anion Gap 7 BUN 10 Creatinine 0.70 Estim Creat Clear Calc 95.41 Est GFR (MDRD) Af Amer 108 Est GFR (MDRD) Non-Af 89 BUN/Creatinine Ratio 14.3 Glucose 180 H Calcium 9.4 Total Bilirubin 0.50 AST 33 ALT 35 Alkaline Phosphatase 114 Total Protein 7.3 Albumin 3.7 Globulin 3.6 Albumin/Globulin Ratio 1.0 Blood Type O POSITIVE Antibody Screen NEGATIVE EKG Initial EKG: Attestation: I personally reviewed and interpreted this EKG as follows: Interpretation: Sinus Rhythm (Rate is 74. Reading to the left. LA interval is 190 ms. Cures duration 92 ms. QT duration 3 5 6 ms. There is decreased anterior force. There are no acute ischemic changes noted.) Management Discussion w/another healthcare provider: Hospitalist (Dr. Love was made aware of patient's history, physical findings and anoscopy results. He also was informed that I spoke with Dr. Perez.) and Underwriting Internship (Spoke with Dr. Perez regarding patient's history, physical and anoscopy results. He would like patient admitted to hospitalist and he will follow-up.) Discharge Plan Dx/Rx/DC Orders Clinical Impression: Acute lower gastrointestinal bleeding, External hemorrhoids, Anemia, chronic disease, Hyperglycemia due to type 2 diabetes mellitus Disposition Disposition: Acute Care Hospital [facility]
[2024-08-24 11:10] LABS: Absolute Lymphocyte Count 0.46 X10^3/uL (0.83-4.51); Absolute Neutrophil Count 1.5 X10^3/uL (2.0-7.7); Basophil# 0.01 X10^3/uL; Basophil% 0.5 % (0-1); Eosinophil# 0.02 X10^3/uL; Eosinophils% 0.9 % (0-5); Hematocrit 34.6 % (37-47); Hemoglobin 11.1 g/dL (12.0-15.0); Lymphocyte # 0.46 X10^3/ul (0.83-4.51); Lymphocyte % 21.6 % (19-41); Mean Corp Hgb Conc 32.1 g/dL (32-36); Mean Corpuscular Hgb 27.5 pg (27.0-32.0); Mean Corpuscular Volume 85.9 fL (81-99); Mean Platelet Vol. 9.6 fl (6.2-12.0); Monocyte# 0.14 X10^3/uL; Monocyte% 6.6 % (0-10); NRBC Flagged by Analyzer 0 % (0-5); Neutrophil # 1.49 X10^3/uL (2.7-7.7); Neutrophil % 69.9 % (47-70); POSITIVE COUNT YES; POSITIVE DIFFERENTIAL YES; Platelet Count 62 K/mm3 (150-450); RBC Distribution Width CV 14.6 % (11.6-14.6); Red Blood Count 4.03 M/mm3 (4.2-5.4); White Blood Count 2.1 K/mm3 (4.4-11.0)
[2024-08-24 11:16] LABS: Differential Indicated SCAN CRITERIA MET
[2024-08-24 11:21] LABS: AST(SGOT) 33 U/L (15-37); Alanine Aminotransfer ALT/SGPT 35 U/L (13-56); Albumin, Serum 3.7 g/dL (3.2-5.0); Alkaline Phosphatase 114 U/L (45-117); Anion Gap 7 (5-15); BUN 10 mg/dL (7-18); BUN/Creat Ratio 14.3 RATIO (10-20); Calcium,Total 9.4 mg/dL (8.5-10.1); Chloride 109 mmol/L (98-107); EST Glomerular Filtration Rate 89 mL/min (>60); Est Glom Filt Rate - Afr Amer 108 mL/min (>60); Estimated Creatinine Clearance 95.41 ml/min; Globulin 3.6 g/dL (2.2-4.2); Glucose 180 mg/dL (74-106); Potassium 3.7 mmol/L (3.5-5.1); Protein, Total 7.3 g/dL (6.4-8.2); Sodium Level 142 mmol/L (136-145)
[2024-08-24 11:25] LABS: International Normalized Ratio 1.1; Prothrombin Time (Protime)PT. 14.5 SECONDS (11.7-14.9)
[2024-08-24 11:27] LABS: Partial Thromboplast Time 33.7 Seconds (24.1-36.2)
--- NOTE | 2024-08-24 11:55 | PCM.HP.STD ---
HPI - General General Date of Admission: 08/24/24 Date of Service: 08/24/24 Chief Complaint: GI bleed for last 3 days HPI Narrative EARL BARRAZA, is a 63 F with history of chronic pancytopenia came to ED for rectal bleeding that started on Saturday afternoon about 3 days ago. She send she was going for [place] on vacation with her daughter and then she started having bright red rectal bleed. It was every 1-2 hours. She also had lower quadrants abdominal cramps. She felt mild feverish on Saturday but did not check temperature. She has morbid obesity and has chronic splenomegaly with thrombocytopenia and pancytopenia. Denies prior history of GI bleed She follows GI in [place] and had colonoscopy about 2 years ago and multiple polyps were removed but she said it were benign. She had EGD also in the past. In ED her vitals were in normal range. All threes cell lines were going #4 pancytopenia. Patient is further admitted. [facility] Medical History Abnormal colonoscopy Psoriasis Abdominal wall abscess Hypertension GERD (gastroesophageal reflux disease) Bipolar disorder Diabetes mellitus, type II Morbid obesity with BMI of 45.0-49.9, adult Home Medications ?Medication ?Instructions ?Recorded ?Last Taken ?Type Nitrostat 0.4 mg sublingual PRN PRN Chest 03/27/15 03/13/15 History Pain glipizide 10 mg tablet, extended 10 mg PO DAILY 08/24/24 08/24/24 History release 24 hr mirabegron 50 mg tablet,extended 50 mg PO DAILY 08/24/24 08/24/24 History release 24 hr olanzapine 7.5 mg tablet 7.5 mg PO QHS 08/24/24 08/23/24 History omeprazole 40 mg capsule,delayed 40 mg PO BID 08/24/24 08/24/24 History release semaglutide 2 mg/dose (8 mg/3 mL) 2 mg subcut QWEEK 08/24/24 08/20/24 History subcutaneous pen injector (Ozempic) sertraline 100 mg tablet 150 mg PO DAILY 08/24/24 08/24/24 History Allergy/AdvReac Type Severity Reaction Status Date / Time No Known Allergies Allergy Verified 08/24/24 10:22 Social History household members: spouse Smoking Status: Never smoker ROS ROS Narrative Constitutional: Reports fatigue and weakness. No fever. HEENT: Reports systems reviewed and no addt'l complaints, except as documented Respiratory/Chest: No acute shortness of breath or respiratory distress or wheezing. CVS: No chest pain or shortness of breath Gastrointestinal: Nauseous but no vomiting. No hematemesis. Genitourinary: Problem in voiding urine while sitting, but denies burning urination. Had hysterectomy Musculoskeletal: Denies acute joint pain or limited range of motion. No acute injury Neurologic: Denies seizure-like symptoms. skin: No ulcer. No rash Endocrinology: Reports systems reviewed and no addt'l complaints, except as documented Hematologic/Lymphatic: Reports systems reviewed and no addt'l complaints, except as documented Rest 14 ROS are negative except as mentioned in HPI Vital Signs Vital Signs Vital Signs: 08/24/24 10:22 Temperature 98.2 F Temperature Source Oral Pulse Rate 78 Respiratory Rate 16 Blood Pressure 128/103 H Blood Pressure Mean 111 Pulse Ox 98 Oxygen Delivery Method Room Air Weight Weight: 237 lb Body Mass Index (BMI) 42.0 Physical Exam Narrative General: Alert, Oriented x3, Cooperative. Morbidly obese BMI 42.0 kg/m?, truncal obesity HEENT: Atraumatic, PERRLA, EOMI, Normocephalic Oral: Oral mucosa dry. No Gingival or Mucosal Lesions/ Ulcerations Neck: Supple, No JVD, Negative Carotid Bruits Chest wall/Lungs: Air entry diminished in bilateral lung bases. No crepitation/rhonchi Cardiovascular: Regular rate, Regular Rhythm, Normal S1, Normal S2, No M/G/R Abdomen: Bowel Sounds Present, Soft, mild tenderness in lower quadrants, Non-Distended. No guarding/rigidity. : No dysuria. No renal angle tenderness. No suprapubic tenderness. Extremities: No edema, Capillary Refill Less than 3 Seconds Skin: No rashes, No breakdown Musculoskeletal: No Tenderness to Palpation of Joints or Extremities Neurological: Cranial nerves II-XII grossly intact, DTR 2+/4. No acute focal neurological deficit. Psych/Mental Status: Normal Affect, Appropriate. Results Lab / Micro Data 08/24/24 10:50 08/24/24 10:50 Labs: Laboratory Results - last 24 hr 08/24/24 10:50: WBC 2.1 L, RBC 4.03 L, Hgb 11.1 L, Hct 34.6 L, MCV 85.9, MCH 27.5, MCHC 32.1, RDW Std Deviation 46.0 H, RDW Coeff of [place] 14.6, Plt Count 62 L, MPV 9.6, Immature Gran % (Auto) 0.500, Neut % (Auto) 69.9, Lymph % (Auto) 21.6, [place] % (Auto) 6.6, Eos % (Auto) 0.9, Baso % (Auto) 0.5, Absolute Neuts (auto) 1.5 L, Absolute Lymphs (auto) 0.46 L, Nucleated RBC % 0, PT 14.5, INR 1.1, APTT 33.7, Sodium 142, Potassium 3.7, Chloride 109 H, Carbon Dioxide 26.0, Anion Gap 7, BUN 10, Creatinine 0.70, Estim Creat Clear Calc 95.41, Est GFR (MDRD) Af Amer 108, Est GFR (MDRD) Non-Af 89, BUN/Creatinine Ratio 14.3, Glucose 180 H, Calcium 9.4, Total Bilirubin 0.50, AST 33, ALT 35, Alkaline Phosphatase 114, Total Protein 7.3, Albumin 3.7, Globulin 3.6, Albumin/Globulin Ratio 1.0 Assessment & Plan Assessment/Plan (1) GI (gastrointestinal bleed): QUALIFIERS: GI bleed type/associated pathology: anorectal hemorrhage Qualified Code(s): K62.5 - Hemorrhage of anus and rectum PLAN: Plan This is a 63-year-old female being admitted for GI bleed for last 3 days. 1. Acute GI bleed most likely upper with rapid transfusion/lower GI bleed, suspected portal hypertensive/variceal bleed: Patient is being admitted in PCU. H&H every 6 hourly. Type and crossmatch as needed. Monitor vitals and H&H. Pantoprazole 40 g Q12 hourly. IV ceftriaxone 1 g IV daily and octreotide infusion. GI is consulted. Plan for EGD and later colonoscopy. She might have ischemic colitis, diverticulosis/inflammatory colitis too. She had EGD in the past and was told she has advanced reflux esophagitis/GERD. 2. 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 Right upper quadrant ultrasound including spleen ordered. Does not have leg swelling and does not feel ascites clinically. 3. SLE and psoriatic arthritis: Patient had MATY and double-stranded DNA positive in the past in 2017. Patient was on biologic in the past but but has been discontinued because could not afford it. 4. Bipolar disorder: On olanzapine. 5. Depression with anxiety patient is on Zoloft 6 Diabetes mellitus type II: Accu-Chek before meals and at bedtime with Humalog sliding scale coverage and hypoglycemia protocol. Hold glipizide and semaglutide . 7. Hypertension-blood pressure controlled, home medications continued with dose adjustment as needed 8. Morbid obesity: BMI 42.0 kg/m? Living will/advanced directive/end of life care: Patient does not have living will or advanced directive or designated power of health care attorney for health. Her daughter is next of kin after discussion of benefits/risks procedures involved with full code, DNR CC arrest and DNR CC, the patient opted for full code. Patient does want artificial life support including intubation, tube feed, ventilator and/chest compression, central venous catheter, vasopressor and DC shock if needed Total time spent in [id number] encounter in discussion of advanced directive 17 minutes. Laboratory Results 08/24/24 10:50: WBC 2.1 L, RBC 4.03 L, Hgb 11.1 L, Hct 34.6 L, MCV 85.9, MCH 27.5, MCHC 32.1, RDW Std Deviation 46.0 H, RDW Coeff of [place] 14.6, Plt Count 62 L, MPV 9.6, Immature Gran % (Auto) 0.500, Neut % (Auto) 69.9, Lymph % (Auto) 21.6, [place] % (Auto) 6.6, Eos % (Auto) 0.9, Baso % (Auto) 0.5, Absolute Neuts (auto) 1.5 L, Absolute Lymphs (auto) 0.46 L, Nucleated RBC % 0, PT 14.5, INR 1.1, APTT 33.7, Sodium 142, Potassium 3.7, Chloride 109 H, Carbon Dioxide 26.0, Anion Gap 7, BUN 10, Creatinine 0.70, Estim Creat Clear Calc 95.41, Est GFR (MDRD) Af Amer 108, Est GFR (MDRD) Non-Af 89, BUN/Creatinine Ratio 14.3, Glucose 180 H, Calcium 9.4, Total Bilirubin 0.50, AST 33, ALT 35, Alkaline Phosphatase 114, Total Protein 7.3, Albumin 3.7, Globulin 3.6, Albumin/Globulin Ratio 1.0, Blood Type O POSITIVE, Antibody Screen NEGATIVE Charges/Coding Visit Charges Inpatient E&M: 95257 Init Hosp L3 Procedures Hospitalists Procedures: 00703 Advncd Care Plan 30 Min
--- NOTE | 2024-08-24 12:04 | US_ITS ---
STUDY: ABDOMINAL ULTRASOUND - RIGHT UPPER QUADRANT REASON FOR VISIT: Female, 63 years old suspected cirrhosis, GI Bleed -- including spleen. TECHNIQUE: Ultrasound evaluation of the right upper quadrant was performed with real-time and static duncan-scale imaging. TECHNICAL QUALITY: Adequate. COMPARISON: CT abdomen and pelvis with contrast 05/08/2023. Ultrasound of the abdomen 09/15/2021. FINDINGS: Liver: The liver measures 18.5 cm. Mildly increased echogenicity of the liver parenchyma due to fatty infiltration. The bile ducts are within normal limits. There is hepatic color flow. The direction of portal flow is hepatopetal. There is no demonstrated mass lesion. Gallbladder: Postsurgical absence. Common Bile Duct (C.B.D.): The common bile duct measures 6.6 mm. Pancreas: Normal size of the head, body and tail of the pancreas. Mild increased echogenicity of the pancreas. There is no demonstrated pancreatic mass or cyst. The pancreatic duct is not dilated. Right Kidney: Normal size of the right kidney. The right kidney measures 10.3 x 5.2 x 4.3 cm. Normal renal cortex. The right cortex measures 1.5 cm. There is no demonstrated renal mass or cyst. There is no right hydronephrosis. IMPRESSION: 1. Mild hepatomegaly with mild hepatic steatosis. 2. Postsurgical absence of the gallbladder. 3. No acute abnormality. Electronically Signed: Shashi Love MD at 13:56 EDT , STUDY: ABDOMINAL ULTRASOUND - LEFT UPPER QUADRANT REASON FOR EXAM: Female, 63 years old. Suspected cirrhosis, GI Bleed -- including spleen TECHNIQUE: Transabdominal ultrasound was performed with real-time and static duncan scale imaging. TECHNICAL QUALITY: Adequate. COMPARISON: CT abdomen and pelvis with contrast 05/08/2023. Ultrasound of the abdomen 09/15/2021. FINDINGS: Spleen: Enlarged spleen. The spleen measures 21 cm. Suspicious varices at the splenic hilum. Left Kidney: Normal size of the left kidney. No mass or cyst.. There is no left hydronephrosis. US/Abdomen Limited IMPRESSION: Splenomegaly with probable varices at the splenic hilum and recanalized umbilical vein. Electronically Signed: Shashi Love MD at 13:58 EDT ,
[2024-08-24 12:25] LABS: Magnesium 1.9 mg/dL (1.6-2.6)
[2024-08-24 12:59] VITALS: BP 123/69; BP 125/64; BP 130/72; PULSE 74; PULSE 79; PULSE 81
[2024-08-24 13:07] LABS: Platelet Estimate MOD DEC (ADEQ)
[2024-08-24 13:42] VITALS: BP 134/78; PULSE 77; RESP 18; TEMP 36.8; O2SAT 97
[2024-08-24 13:58] VITALS: BMI 40.6
[2024-08-24 14:17] LABS: Hematocrit 35.4 % (37-47); Hemoglobin 11.6 g/dL (12.0-15.0)
[2024-08-24 14:25] VITALS: BP 117/53; PULSE 76; RESP 18; TEMP 36.3; O2SAT 96
[2024-08-24] MEDS: Pantoprazole Sodium 40 MG in 0.9% Normal Saline (100mL MB+) 100 ML 330 MG IV ×2 (14:56→22:51)
[2024-08-24] MEDS: Ceftriaxone 1 GM/50 ML BAG IV (15:18)
[2024-08-24] MEDS: KCL 40mEq in 0.9% NS 40 MEQ/1,000 ML IV.SOLN 100 MEQ IV (16:31)
[2024-08-24] MEDS: Octreotide 0.5 MG in Dextrose 5%-Water (250mL Bag) 250 ML 12.5 MG CONT INF (16:40)
[2024-08-24 17:56] LABS: Bedside Glucose 98 mg/dL (74-106)
--- NOTE | 2024-08-24 18:52 | EX.PCM.CON.G ---
HPI Consult Data Date of Consult: 08/24/24 HPI Narrative Reason for Consultation: GI bleed HPI Narrative: EARL BARRAZA, is a 63 F who presents for rectal bleeding that started on Saturday afternoon about 3 days ago. She send she was going for [place] on vacation with her daughter and then she started having bright red rectal bleed. It was every 1-2 hours. She also had lower quadrants abdominal cramps. She felt mild feverish on Saturday but did not check temperature. She has morbid obesity and has chronic splenomegaly with thrombocytopenia and pancytopenia. Denies prior history of GI bleed She follows GI in [place] and had colonoscopy about 2 years ago and multiple polyps were removed but she said it were benign. She had EGD also in the past. In ED her vitals were in normal range. CBC she was noted to be neutropenic, thrombocytopenic and anemic. Also her CT scan of the abdomen pelvis shows massive splenomegaly and hepatomegaly. [facility] Medical History Abnormal colonoscopy Psoriasis Abdominal wall abscess Hypertension GERD (gastroesophageal reflux disease) Bipolar disorder Diabetes mellitus, type II Morbid obesity with BMI of 45.0-49.9, adult Home Medications ?Medication ?Instructions ?Recorded ?Last Taken ?Type Nitrostat 0.4 mg sublingual PRN PRN Chest 03/27/15 03/13/15 History Pain glipizide 10 mg tablet, extended 10 mg PO DAILY 08/24/24 08/24/24 History release 24 hr mirabegron 50 mg tablet,extended 50 mg PO DAILY 08/24/24 08/24/24 History release 24 hr olanzapine 7.5 mg tablet 7.5 mg PO QHS 08/24/24 08/23/24 History omeprazole 40 mg capsule,delayed 40 mg PO BID 08/24/24 08/24/24 History release semaglutide 2 mg/dose (8 mg/3 mL) 2 mg subcut QWEEK 08/24/24 08/20/24 History subcutaneous pen injector (Ozempic) sertraline 100 mg tablet 150 mg PO DAILY 08/24/24 08/24/24 History Allergy/AdvReac Type Severity Reaction Status Date / Time No Known Allergies Allergy Verified 08/24/24 10:22 Social History household members: spouse Smoking Status: Former smoker ROS ROS Narrative Constitutional: Reports fatigue and weakness. No fever. HEENT: Reports systems reviewed and no addt'l complaints, except as documented Respiratory/Chest: No acute shortness of breath or respiratory distress or wheezing. CVS: No chest pain or shortness of breath Gastrointestinal: Nauseous but no vomiting. No hematemesis. Genitourinary: Problem in voiding urine while sitting, but denies burning urination. Had hysterectomy Musculoskeletal: Denies acute joint pain or limited range of motion. No acute injury Neurologic: Denies seizure-like symptoms. skin: No ulcer. No rash Endocrinology: Reports systems reviewed and no addt'l complaints, except as documented Hematologic/Lymphatic: Reports systems reviewed and no addt'l complaints, except as documented Rest 14 ROS are negative except as mentioned in HPI Physical Exam Narrative General: Alert, Oriented x3, Cooperative. Morbidly obese BMI 42.0 kg/m?, truncal obesity HEENT: Atraumatic, PERRLA, EOMI, Normocephalic Oral: Oral mucosa dry. No Gingival or Mucosal Lesions/ Ulcerations Neck: Supple, No JVD, Negative Carotid Bruits Chest wall/Lungs: Air entry diminished in bilateral lung bases. No crepitation/rhonchi Cardiovascular: Regular rate, Regular Rhythm, Normal S1, Normal S2, No M/G/R Abdomen: Bowel Sounds Present, Soft, mild tenderness in lower quadrants, Non-Distended. No guarding/rigidity. : No dysuria. No renal angle tenderness. No suprapubic tenderness. Extremities: No edema, Capillary Refill Less than 3 Seconds Skin: No rashes, No breakdown Musculoskeletal: No Tenderness to Palpation of Joints or Extremities Neurological: Cranial nerves II-XII grossly intact, DTR 2+/4. No acute focal neurological deficit. Psych/Mental Status: Normal Affect, Appropriate. Lab / Micro Data 08/24/24 14:10 08/24/24 10:50 Labs: Laboratory Results - last 24 hr 08/24/24 10:50: WBC 2.1 L, RBC 4.03 L, Hgb 11.1 L, Hct 34.6 L, MCV 85.9, MCH 27.5, MCHC 32.1, RDW Std Deviation 46.0 H, RDW Coeff of Tacho 14.6, Plt Count 62 L, MPV 9.6, Immature Gran % (Auto) 0.500, Neut % (Auto) 69.9, Lymph % (Auto) 21.6, [place] % (Auto) 6.6, Eos % (Auto) 0.9, Baso % (Auto) 0.5, Absolute Neuts (auto) 1.5 L, Absolute Lymphs (auto) 0.46 L, Nucleated RBC % 0, Differential Comment COMMENT, Diff Path Review March foll, Platelet Estimate MOD DEC, PT 14.5, INR 1.1, APTT 33.7, Sodium 142, Potassium 3.7, Chloride 109 H, Carbon Dioxide 26.0, Anion Gap 7, BUN 10, Creatinine 0.70, Estim Creat Clear Calc 95.41, Est GFR (MDRD) Af Amer 108, Est GFR (MDRD) Non-Af 89, BUN/Creatinine Ratio 14.3, Glucose 180 H, Calcium 9.4, Magnesium 1.9, Total Bilirubin 0.50, AST 33, ALT 35, Alkaline Phosphatase 114, Total Protein 7.3, Albumin 3.7, Globulin 3.6, Albumin/Globulin Ratio 1.0, Blood Type O POSITIVE, Antibody Screen NEGATIVE 08/24/24 14:10: Hgb 11.6 L, Hct 35.4 L 08/24/24 17:29: POC Glucose 98 Imaging Radiology Impression Abdomen Ultrasound 08/24/24 12:04 IMPRESSION: Splenomegaly with probable varices at the splenic hilum and recanalized umbilical vein. Electronically Signed: Shashi Love MD at 13:58 EDT Reading Location ID and State: [facility] / [place] , Service support , Assessment & Plan Assessment/Plan (1) GI (gastrointestinal bleed): QUALIFIERS: GI bleed type/associated pathology: anorectal hemorrhage Qualified Code(s): K62.5 - Hemorrhage of anus and rectum PLAN: Plan This is a 63-year-old female being admitted for GI bleed I agree withAcute GI bleed most likely upper with rapid transfusion/lower GI bleed, suspected portal hypertensive/variceal bleed: I also agree with Pantoprazole 40 g Q12 hourly. IV ceftriaxone 1 g IV daily and octreotide infusion. GI is consulted. Plan for EGD and later colonoscopy. She needs workup for suspected MASH/AIH cirrhosis and other causes of chronic liver disease with suspected portal hypertension: Patient has pancytopenia, especially platelet count is very low and she said it has been decreasing. Right upper quadrant ultrasound including spleen ordered. Does not have leg swelling and does not feel ascites clinically. Charges/Coding Visit Charges Inpatient E&M: 56172 Init Hosp L3
[2024-08-24 19:58] LABS: Hematocrit 35.5 % (37-47); Hemoglobin 11.5 g/dL (12.0-15.0); POSITIVE COUNT YES
[2024-08-24] MEDS: Bisacodyl 5 MG Tablet 20 MG PO (20:46)
[2024-08-24] MEDS: Acetaminophen 325 MG Tablet 650 MG PO (20:47)
[2024-08-24 20:50] VITALS: BP 130/67; PULSE 86; RESP 16; TEMP 36; O2SAT 93
[2024-08-24] MEDS: Polyethylene Glycol 3350 BOWEL PREP PO (22:14)
[2024-08-24] MEDS: OLANZapine 2.5 MG Tablet 7.5 MG PO (22:51)
[2024-08-25] VITALS (9 sets, daily range): BP systolic 116–131; BP diastolic 61–74; PULSE 73–78; RESP 16–18; TEMP 36.2–37; O2SAT 94–97; BMI 15.4
[2024-08-25] MEDS: Ondansetron 4 MG/2 ML Vial IV (00:29)
[2024-08-25 02:05] LABS: Hematocrit 35.7 % (37-47); Hemoglobin 11.4 g/dL (12.0-15.0)
[2024-08-25] MEDS: KCL 40mEq in 0.9% NS 40 MEQ/1,000 ML IV.SOLN 100 MEQ IV (02:33)
[2024-08-25] MEDS: 0.9% Saline Lock 10 ML Syringe IV (02:33)
--- NOTE | 2024-08-25 05:55 | EKG12_ITS ---
Test Reason : PRE OP Blood Pressure : / mmHG Vent. Rate : 072 BPM Atrial Rate : 072 BPM P-R Int : 204 ms QRS Dur : 090 ms QT Int : 392 ms P-R-T Axes : 048 -32 147 degrees QTc Int : 429 ms Normal sinus rhythm Left axis deviation Anterior infarct , age undetermined Abnormal ECG When compared with ECG of 24-AUG-2024 10:56, MANUAL COMPARISON REQUIRED, DATA IS UNCONFIRMED Confirmed by MAUREEN BARRON, ERASMO ([id number]), photographic editor ARACELI COSBY ([id number]) on 08/25/2024 9:46:36 AM Referred By: Confirmed By:ERASMO REDDY MD
[2024-08-25 06:07] LABS: International Normalized Ratio 1.2; Prothrombin Time (Protime)PT. 15.4 SECONDS (11.7-14.9)
[2024-08-25 06:27] LABS: Absolute Neutrophil Count 0.9 X10^3/uL (2.0-7.7); Basophil# 0.01 X10^3/uL; Basophil% 0.6 % (0-1); Eosinophil# 0.02 X10^3/uL; Eosinophils% 1.2 % (0-5); Hematocrit 33.4 % (37-47); Hemoglobin 10.7 g/dL (12.0-15.0); Lymphocyte % 31.1 % (19-41); Mean Corpuscular Hgb 27.8 pg (27.0-32.0); Mean Corpuscular Volume 86.8 fL (81-99); Mean Platelet Vol. 10.3 fl (6.2-12.0); Monocyte# 0.14 X10^3/uL; Monocyte% 8.7 % (0-10); NRBC Flagged by Analyzer 0 % (0-5); Neutrophil # 0.93 X10^3/uL (2.7-7.7); Neutrophil % 57.8 % (47-70); POSITIVE COUNT YES; POSITIVE DIFFERENTIAL YES; Platelet Count 60 K/mm3 (150-450); RBC Distribution Width CV 14.7 % (11.6-14.6); RBC Distribution Width SD 46.8 fl (35.1-43.9); Red Blood Count 3.85 M/mm3 (4.2-5.4); White Blood Count 1.6 K/mm3 (4.4-11.0)
[2024-08-25 06:46] LABS: AST(SGOT) 54 U/L (15-37); Alanine Aminotransfer ALT/SGPT 49 U/L (13-56); Albumin, Serum 3.4 g/dL (3.2-5.0); Alkaline Phosphatase 155 U/L (45-117); Anion Gap 5 (5-15); BUN 7 mg/dL (7-18); BUN/Creat Ratio 9.9 RATIO (10-20); Calcium,Total 8.9 mg/dL (8.5-10.1); Chloride 111 mmol/L (98-107); Creatinine, Serum 0.71 mg/dL (0.55-1.02); EST Glomerular Filtration Rate 88 mL/min (>60); Est Glom Filt Rate - Afr Amer 107 mL/min (>60); Estimated Creatinine Clearance 51.43 ml/min; Globulin 3.3 g/dL (2.2-4.2); Glucose 181 mg/dL (74-106); Protein, Total 6.7 g/dL (6.4-8.2); Sodium Level 141 mmol/L (136-145)
[2024-08-25] MEDS: Sertraline 50 MG Tablet 150 MG PO (07:52)
[2024-08-25] MEDS: Vibegron 75 MG TABLET PO (07:52)
[2024-08-25] MEDS: Pantoprazole Sodium 40 MG in 0.9% Normal Saline (100mL MB+) 100 ML 330 MG IV (11:25)
[2024-08-25] MEDS: Ceftriaxone 1 GM/50 ML BAG IV (11:35)
[2024-08-25] MEDS: 0.9% Normal Saline (1000mL) 1,000 ML 15 ML IV (13:01)
--- NOTE | 2024-08-25 13:14 | PRE.ANES_ITS ---
ASA Classification* ASA Classification ASA Classification: 3 Assessment & Plan Anesthesia* Anesthesia Assessment Anesthesia Assessment: Discussed sedation and/or anesthesia options, risks, benefits, and alternatives with patient/parents/legal guardian/POA. Questions invited. The patient/parents/legal guardian/POA seems to understand and agrees to proceed with anesthesia plan. Reviewed the physical assessment, medical history, allergy history and patient home medications list prior to surgery/procedure/anesthetic and documented any changes. Performed airway and anesthesia risk assessments. Anesthesia Type Anesthesia Type: MAC History Source History Obtained from:: Patient and Chart Anesthesia Focused Assessment* Temperature: 97.9 F Pulse Rate: 77 Blood Pressure: 118/71 Respiratory Rate: 16 Pulse Ox: 95 Oxygen Delivery Method: Room Air Airway Assessment Mouth opens: >3 cm Mallampati Score: IV Teeth Condition: Dentures (Patient has full top and bottom dentures.) Neck Range of motion (ROM): Limited ROM (Somewhat decreased extension) Focused Labs Anesthesia Preop lab: CBC WBC 1.6 K/mm3 (4.4-11.0) L 08/25/24 05:43 RBC 3.85 M/mm3 (4.2-5.4) L 08/25/24 05:43 Hgb 10.7 g/dL (12.0-15.0) L 08/25/24 05:43 Hct 33.4 % (37-47) L 08/25/24 05:43 Plt Count 60 K/mm3 (150-450) L 08/25/24 05:43 CHEMISTRY Potassium 4.0 mmol/L (3.5-5.1) 08/25/24 05:43 Sodium 141 mmol/L (136-145) 08/25/24 05:43 Magnesium 1.9 mg/dL (1.6-2.6) 08/24/24 10:50 BUN 7 mg/dL (7-18) 08/25/24 05:43 Creatinine 0.71 mg/dL (0.55-1.02) 08/25/24 05:43 Glucose 181 mg/dL (74-106) H 08/25/24 05:43 POC Glucose 98 mg/dL (74-106) 08/24/24 17:29 TSH 1.13 uIU/mL (0.358-3.74) 02/21/23 11:51 COAG PT 15.4 SECONDS (11.7-14.9) H 08/25/24 05:43 Pre-Assessment Diagnosis/Proposed Procedure Planned Operative Procedure(s): Esophagogastroduodenoscopy. Colonoscopy. 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 When Was Last Pacemaker Check QUESTION #4 FULL TEXT: You/Your Family Experience fever (hyperthermia) with Anesthesia Last Oral Intake Last Oral intake: Last Oral Intake NPO since 00:00 08/25/24 01:28 Meds taken in AM with sips of water? 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 Female HX of Motion Sickness HX of N/V After Surgery Non-Smoker Duration of Surgery greater than 60 minutes Number of Risk Factors PONV Score Height & Weight Height & Weight: Anesthesia: Height & Weight Height 5 ft 4 in 08/25/24 01:28 Weight: 110.1 kg 08/25/24 08:14 Body Mass Index (BMI) 15.4 08/25/24 01:28 Respiratory Assessment Respiratory Assessment - wildlife management professor: Respiratory Tract Infection Hx - wildlife management professor Hx Respiratory Tract Infection No 08/25/24 01:28 STOP Sleep Apnea STOP Sleep Apnea - wildlife management professor: STOP Sleep Apnea - wildlife management professor Hx Hypertension Yes 08/24/24 14:04 Hx Sleep Apnea Yes 08/24/24 14:04 CPAP No 08/24/24 14:04 BIPAP No 08/24/24 14:04 Do you snore loudly (louder than talking or can be heard Do you often feel tired/ fatigued/ sleepy during daytime? Has anyone observed you stop breathing during sleep? STOP Results Positive 08/24/24 14:04 QUESTION #5 FULL TEXT : Do you snore loudly (louder than talking or can be heard through closed doors)? 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 Specify any problems Hx of Preganancy in last 3 No 08/24/24 14:04 Months Nurse Filling Out Transfusion [email or web address] 08/24/24 14:04 & Questions: Date: 08/24/24 08/24/24 14:04 Time: 14:11 08/24/24 14:04 Patient unable to answer at this time (ie. confused, unrespo /Reproduction History /Reproductive History - wildlife management professor: /Reproductive Hx- wildlife management professor Hx Now Gestational Age (in weeks): EDC: Hx Hx Para Hx Section SAB Active Medications Active Medications: Current Medications Generic Name Dose Route Start Last Admin Trade Name Freq PRN Reason Stop Dose Admin Acetaminophen 650 mg 08/24/24 13:58 08/24/24 20:47 Acetaminophen 325 Mg Tablet PO 650 mg Q6H PRN PRN Administration Pain 1-10 Or Fever>100.7 Pantoprazole Sodium 40 mg/ 110 mls @ 330 mls/hr 08/24/24 12:22 08/25/24 11:55 Sodium Chloride IV Infused Q12 CORRINE Infusion Ceftriaxone Sodium 1 gm in 50 mls @ 100 mls/hr 08/24/24 12:23 08/25/24 12:06 Rocephin IV Infused Q24 CORRINE Infusion Octreotide Acetate 0.5 mg/ 251 mls @ 12.5 mls/hr 08/24/24 12:23 08/25/24 11:21 Dextrose CONT INF Not Given .Q20H5M CORRINE Sodium Chloride 1,000 mls @ 15 mls/hr 08/25/24 12:45 08/25/24 13:01 IV 15 mls/hr .Q48H CORRINE Administration Nitroglycerin 0.4 mg 08/24/24 14:04 Nitroglycerin (Inpatient Use) 0.4 Mg Tab.Subl SL Q5M PRN CARDIAC/CHEST PAIN Olanzapine 7.5 mg 08/24/24 22:00 08/24/24 22:51 Olanzapine 2.5 Mg Tablet PO 7.5 mg QHS CORRINE Administration Ondansetron HCl 4 mg 08/25/24 00:02 08/25/24 00:29 Ondansetron 4 Mg/2 Ml Vial IV 4 mg Q8H PRN PRN Administration NAUSEA/VOMITING Sertraline HCl 150 mg 08/25/24 10:00 08/25/24 07:52 Sertraline 50 Mg Tablet PO 150 mg DAILY CORRINE Administration Sodium Chloride 10 - 40 ml 08/24/24 14:02 08/25/24 02:33 0.9% Saline Lock 10 Ml Syringe IV 10 ml UD PRN Administration SALINE FLUSH PFSH Medical History Abnormal colonoscopy Psoriasis Abdominal wall abscess Hypertension GERD (gastroesophageal reflux disease) Bipolar disorder Diabetes mellitus, type II Morbid obesity with BMI of 45.0-49.9, adult Home Medications ?Medication ?Instructions ?Recorded ?Last Taken ?Type Nitrostat 0.4 mg sublingual PRN PRN Chest 03/27/15 03/13/15 History Pain glipizide 10 mg tablet, extended 10 mg PO DAILY 08/24/24 08/24/24 History release 24 hr mirabegron 50 mg tablet,extended 50 mg PO DAILY 08/24/24 08/24/24 History release 24 hr olanzapine 7.5 mg tablet 7.5 mg PO QHS 08/24/24 08/23/24 History omeprazole 40 mg capsule,delayed 40 mg PO BID 08/24/24 08/24/24 History release semaglutide 2 mg/dose (8 mg/3 mL) 2 mg subcut QWEEK 08/24/24 08/20/24 History subcutaneous pen injector (Ozempic) sertraline 100 mg tablet 150 mg PO DAILY 08/24/24 08/24/24 History Allergy/AdvReac Type Severity Reaction Status Date / Time No Known Allergies Allergy Verified 08/24/24 10:22 Surgical History (Updated 08/25/24 @ 13:[address] Raj Patel MD) S/P tubal ligation S/P foot surgery S/P total hysterectomy S/P cholecystectomy Status post hip surgery Social History household members: spouse Smoking Status: Former smoker Review of Systems (Anesthesia) ROS Narrative System reviewed and no additional complaints, except as documented.
--- NOTE | 2024-08-25 13:45 | CASEMGMT ---
ARMAND CM to pt room at this time for initial assessment. Pt is currently off of the floor for a procedure. CM to follow.
--- NOTE | 2024-08-25 14:00 | IMM_PTH ---
PATHOLOGY RESULTS PATIENT: EARL BARRAZA LOC: [facility] U#:[id number] AGE/SX: 63/F ROOM: [facility] RE08/24/[address]: Dr. Samy Pelaez MD : 1960 BED: 1 DIS: 08/25/2024 SPEC #: [id number] RECD: 08/26/24 08:20 STATUS: MARILYNN REDane #: [id number] NAVNEET: 08/25/24 14:[address]: Kirt Perez DEPT: IMMUNOHISTOCHEMISTRY RECD BY: Issac Parish ENTERED: 08/26/24 08:21 SP TYPE: IMMUNO OTHR DR: MD Dr. Yandel Feliciano MD Tissues: Gastric mucous membrane Procedures: H Pylori (initial) PHYSICIAN & INSTITUTION [place] [id number] SPECIMEN INFORMATION: Tissue Source: A- Gastric body biopsy Clinical Info: GI bleed Specimen Number: [id number] CPT code: 55069 METHODOLOGY: Deparaffinized sections of prefer/formalin-fixed tissue or PAP/DQ stained slides are incubated with monoclonal/polyclonal antibodies/oligonucleotide probes. Localization is made via biotin free immunoperoxidase method. Appropriate controls are performed and reacted as expected. Results on target cell population are indicated in the following table: RESULTS: ANTIBODY / CLONE RESULT Block A H Pylori (polyclonal) negative These tests were developed and their performance characteristics determined by [facility]. They may not have been cleared or approved by the U.S. Food and Drug Administration. The FDA has determined that such clearance or approval is not necessary. The above immunohistochemical/dualISH markers are ordered and reviewed by the Pathologist. INTERPRETATION: A. Gastric body, biopsy: Negative for Helicobacter pylori organisms. 08/27/2024
--- NOTE | 2024-08-25 14:00 | COLBX_PTH ---
PATHOLOGY RESULTS PATIENT: EARL BARRAZA LOC: [facility] U#:[id number] AGE/SX: 63/F ROOM: [facility] RE08/24/[address]: Dr. Samy Pelaez MD : 1960 BED: 1 DIS: 08/25/2024 SPEC #: [id number] RECD: 08/25/24 18:14 STATUS: MARILYNN HALL #: [id number] NAVNEET: 08/25/24 14:[address]: Kirt Perez DEPT: SURGICAL PATHOLOGY RECD BY: Jamal Cabrera ENTERED: 08/26/24 09:59 SP TYPE: COLON BX OTHR DR: MD Dr. Yandel Feliciano MD Tissues: Gastric mucous membrane Transverse colon Rectum, NOS Procedures: Trichrome (control) Special Stain Group I Surgery Specimen Level IV HEADER OPERATION: Colonoscopy with polypectomy and clip, EGD with biopsies PRE-OP DIAGNOSIS: GI bleed TISSUE SUBMITTED: A- Gastric body biopsy, B- Transverse colon polyp, C- Rectum biopsy MICROSCOPIC DIAGNOSIS A. Gastric body, biopsy: Mild gastritis. See microscopic description and comment. B. Transverse colon polyp, polypectomy: Tubulovillous adenoma. C. Rectum, biopsy: Fragments of colonic mucosa with focal denudation of epithelium, reactive changes, congestion and hemorrhage. See comment. 08/27/2024 COMMENT A. The results of immunohistochemistry for Helicobacter pylori will be reported separately ([id number]). C. Trichrome stain with matched control is also used in the evaluation of the specimen. Case has been reviewed in consultation with Dr. Brizuela who concurs with the above diagnosis. IDC:AM MICROSCOPIC DESCRIPTION Slides are reviewed. A. Sections show small collections and groups of plasma cells in the mucosa. Active inflammation is not present. These findings are consistent with mild chronic gastritis. GROSS DESCRIPTION A. Received in fixative is one container labeled with the patient's name and designated Gastric body biopsy. The specimen consists of two irregular fragments of light ferrell soft tissue that in aggregate measure 0.8 x 0.5 x 0.1 cm. The specimen is totally submitted in one cassette. B. Received in fixative is one container labeled with the patient's name and designated Transverse colon polyp. The specimen consists of a pink-red polyp measuring 1.2 x 0.5 x 0.5 cm. The presumed base is inked. The polyp is bisected and submitted entirely in one cassette. C. Received in fixative is one container labeled with the patient's name and designated Rectum biopsy. The specimen consists of two irregular fragments of light ferrell soft tissue that in aggregate measure 0.8 x 0.2 x 0.1 cm. The specimen is totally submitted in one cassette. SJ.mr 08/26/2024 TC:1 CPT:28977g3,23107
--- NOTE | 2024-08-25 14:10 | OP.EGD_ITS ---
Patient Name: Hamzah Guerrero Procedure Date: 08/25/2024 1:06 PM Date of : 1960 Age: 63 Procedure: Upper GI endoscopy Indications: Acute post hemorrhagic anemia Providers: Kirt Perez DO Medicines: Monitored Anesthesia Care Patient Profile: This is a 63 year old female. Refer to note in patient chart for documentation of history and physical. Patient has symptoms of chronic epigastric abdominal pain, acute dyspepsia and acute nausea. Complications: No immediate complications. Procedure: Pre-Anesthesia Assessment: - Prior to the procedure, a History and Physical was performed, and patient medications and allergies were reviewed. The patient is competent. The risks and benefits of the procedure and the sedation options and risks were discussed with the patient. All questions were answered and informed consent was obtained. Patient identification and proposed procedure were verified by the physician in the pre-procedure area. Mental Status Examination: alert and oriented. Airway Examination: normal oropharyngeal airway and neck mobility. Respiratory Examination: clear to auscultation. CV Examination: normal. Prophylactic Antibiotics: The patient does not require prophylactic antibiotics. Prior Anticoagulants: The patient has taken no anticoagulant or antiplatelet agents. ASA Grade Assessment: III - A patient with severe systemic disease. After reviewing the risks and benefits, the patient was deemed in satisfactory condition to undergo the procedure. The anesthesia plan was to use monitored anesthesia care (MAC). Immediately prior to administration of medications, the patient was re-assessed for adequacy to receive sedatives. The heart rate, respiratory rate, oxygen saturations, blood pressure, adequacy of pulmonary ventilation, and response to care were monitored throughout the procedure. The physical status of the patient was re-assessed after the procedure. After obtaining informed consent, the endoscope was passed under direct vision. Throughout the procedure, the patient's blood pressure, pulse, and oxygen saturations were monitored continuously. The Colonoscope was introduced through the mouth, and advanced to the second part of duodenum. The upper GI endoscopy was accomplished without difficulty. The patient tolerated the procedure well. Scope In: 1:36:08 PM Scope Out: 1:40:24 PM Total Procedure Duration Time 0 hours 4 minutes 16 seconds Findings: Small (< 5 mm) varices were found in the lower third of the esophagus. They were 5 mm in largest diameter. Severe portal hypertensive gastropathy was found in the entire examined stomach. Biopsies were taken with a cold forceps for histology. Verification of patient identification for the specimen was done. Biopsies were taken with a cold forceps for Helicobacter pylori testing. Verification of patient identification for the specimen was done. Estimated blood loss was minimal. No gross lesions were noted in the first portion of the duodenum. Impression: - Small (< 5 mm) esophageal varices. - Portal hypertensive gastropathy. Biopsied. - No gross lesions in the first portion of the duodenum. Recommendation: - Discharge patient to home. - Resume previous diet. - Continue present medications. - Await pathology results. Procedure Code(s): --- Professional --- 97979, Esophagogastroduodenoscopy, flexible, transoral; with biopsy, single or multiple CPT copyright 2021 [employer]. All rights reserved. The codes documented in this report are preliminary and upon die casting machine operator review may be revised to meet current compliance requirements. Kirt Perez DO 08/25/2024 2:09:58 PM This report has been signed electronically. Number of Addenda: 0 Note Initiated On: 08/25/2024 1:06 PM
--- NOTE | 2024-08-25 14:10 | OP.CCLET_ITS ---
08/25/2024 Yandel Cabrera Re : Upper GI endoscopy procedure for Hamzah Guerrero Dear Rcik This procedure was performed on Sunday, August 25, 2024. My impressions and recommendations are as follows: Impressions : - Small (< 5 mm) esophageal varices. - Portal hypertensive gastropathy. Biopsied. - No gross lesions in the first portion of the duodenum. Recommendations : - Discharge patient to home. - Resume previous diet. - Continue present medications. - Await pathology results. My findings are described in the full procedure note, which is enclosed. If I can be of further assistance, please feel free to contact me at . Sincerely, Kirt Perez, 08/25/2024 2:09:58 PM This report has been signed electronically.
--- NOTE | 2024-08-25 14:10 | PCM.POST.ANE ---
Anesthesia: Postop Eval I Current Vital Signs Temperature: 97.4 F Pulse Rate: 77 Blood Pressure: 124/70 Respiratory Rate: 16 Pulse Ox: 97 Oxygen Delivery Method: Room Air Assessment Airway patent: Yes Spontaneous unlabored respirations: Yes Mental status: Awake and Calm nausea: No Vomiting: No Anesthesia Complication: No Fluid Hydration Crystalloid volume administer (ml): 600 Total IV fluid infused: 600 Progress Note Anesthesia document: Postop Eval 1 completed: Yes
--- NOTE | 2024-08-25 14:18 | OP.COLON_ITS ---
Patient Name: Hamzah Guerrero Procedure Date: 08/25/2024 1:40 PM Date of : 1960 Age: 63 Procedure: Colonoscopy Indications: Hematochezia Providers: Kirt Perez DO Medicines: Monitored Anesthesia Care Patient Profile: This is a 63 year old female. Refer to note in patient chart for documentation of history and physical. Patient has symptoms of chronic epigastric abdominal pain, acute dyspepsia and acute nausea. Last Colonoscopy: date unknown. Unable to locate last colonoscopy report. Complications: No immediate complications. Procedure: Pre-Anesthesia Assessment: - Prior to the procedure, a History and Physical was performed, and patient medications and allergies were reviewed. The patient is competent. The risks and benefits of the procedure and the sedation options and risks were discussed with the patient. All questions were answered and informed consent was obtained. Patient identification and proposed procedure were verified by the physician in the pre-procedure area. Mental Status Examination: alert and oriented. Airway Examination: normal oropharyngeal airway and neck mobility. Respiratory Examination: clear to auscultation. CV Examination: normal. Prophylactic Antibiotics: The patient does not require prophylactic antibiotics. Prior Anticoagulants: The patient has taken no anticoagulant or antiplatelet agents. ASA Grade Assessment: III - A patient with severe systemic disease. After reviewing the risks and benefits, the patient was deemed in satisfactory condition to undergo the procedure. The anesthesia plan was to use monitored anesthesia care (MAC). Immediately prior to administration of medications, the patient was re-assessed for adequacy to receive sedatives. The heart rate, respiratory rate, oxygen saturations, blood pressure, adequacy of pulmonary ventilation, and response to care were monitored throughout the procedure. The physical status of the patient was re-assessed after the procedure. After I obtained informed consent, the scope was passed under direct vision. Throughout the procedure, the patient's blood pressure, pulse, and oxygen saturations were monitored continuously. The Colonoscope was introduced through the anus and advanced to the cecum, identified by appendiceal orifice and ileocecal valve. The colonoscopy was performed without difficulty. The patient tolerated the procedure well. The quality of the bowel preparation was adequate. The ileocecal valve, appendiceal orifice, and rectum were photographed. Scope In: Scope Withdrawal Time 0 hours 8 minutes 30 seconds Scope Out: 2:01:35 PM Findings: The perianal and digital rectal examinations were normal. Localized severe inflammation characterized by erosions, erythema, friability and granularity was found in the rectum. Biopsies were taken with a cold forceps for histology. Verification of patient identification for the specimen was done. Estimated blood loss was minimal. A 19 mm polyp was found in the transverse colon. The polyp was sessile. The polyp was removed with a hot snare. Resection and retrieval were complete. To close a defect after polypectomy, one hemostatic clip was successfully placed. Clip radio machinist: Gecko. There was no bleeding at the end of the procedure. The exam was otherwise without abnormality on direct and retroflexion views. Impression: - Localized severe inflammation was found in the rectum secondary to ischemic colitis. Biopsied. - One 19 mm polyp in the transverse colon, removed with a hot snare. Resected and retrieved. Clip was placed. Clip radio machinist: Gecko. - The examination was otherwise normal on direct and retroflexion views. Recommendation: - [facility]. - Resume previous diet. - Continue present medications. - Await pathology results. - Repeat colonoscopy in 3 years for surveillance. Procedure Code(s): --- Professional --- 61738, Colonoscopy, flexible; with removal of tumor(s), polyp(s), or other lesion(s) by snare technique 68793, 59, Colonoscopy, flexible; with biopsy, single or multiple CPT copyright 2021 [employer]. All rights reserved. The codes documented in this report are preliminary and upon woolen suiting shrinker review may be revised to meet current compliance requirements. Kirt Perez DO 08/25/2024 2:17:16 PM This report has been signed electronically. Number of Addenda: 0 Note Initiated On: 08/25/2024 1:40 PM
--- NOTE | 2024-08-25 14:18 | OP.CCLET_ITS ---
08/25/2024 Yandel Cabrera Re : Colonoscopy procedure for Hamzah Guerrero Dear Rick This procedure was performed on Sunday, August 25, 2024. My impressions and recommendations are as follows: Impressions : - Localized severe inflammation was found in the rectum secondary to ischemic colitis. Biopsied. - One 19 mm polyp in the transverse colon, removed with a hot snare. Resected and retrieved. Clip was placed. Clip loader malt house: Connected. - The examination was otherwise normal on direct and retroflexion views. Recommendations : - [facility]. - Resume previous diet. - Continue present medications. - Await pathology results. - Repeat colonoscopy in 3 years for surveillance. My findings are described in the full procedure note, which is enclosed. If I can be of further assistance, please feel free to contact me at . Sincerely, Kirt Perez, 08/25/2024 2:17:16 PM This report has been signed electronically.
--- NOTE | 2024-08-25 14:24 | CT_ITS ---
STUDY: CTA ABDOMEN AND PELVIS WITH CONTRAST REASON FOR EXAM: Female, 63 years old. Ischemic proctitis RADIATION DOSAGE (If Supplied By Facility): CTDIvol = ( 26.12 ) mGy, DLP = ( 1372.07 ) mGycm TECHNIQUE: Transaxial images were obtained from the dome of the diaphragm to the symphysis pubis without oral contrast. IV 100mL Isovue-370 was administered. Sagittal and coronal images were reconstructed. 3-D images were reconstructed. Individualized dose optimization techniqueNone.s were used for this CT. COMPARISON: Comparison is made with prior study May 08, 2023. FINDINGS: Minimal increase in markings at the lung bases suggestive of linear scarring and/or atelectasis The visualized portions of the heart are within normal limits. There is decreased attenuation of the liver consistent with steatosis. There are surgical clips in the gallbladder fossa consistent with a prior cholecystectomy. There is moderate splenomegaly. Normal pancreas. Normal bilateral adrenal glands. Normal right kidney. Normal left kidney. Normal visualized stomach. Normal small intestine. There are multiple colonic diverticula consistent with diverticulosis. There are surgical clips in the region of the appendix consistent with a prior appendectomy. Normal abdominal aorta. Normal inferior vena cava. There is a small retroperitoneal lymphadenopathy with enlarged nodes no greater than 10mm in the short axis diameter. Normal urinary bladder. Normal abdominal wall. The patient is status post bilateral hip replacement causing beam hardening artifact in the pelvis limiting evaluation of the pelvic structures including the rectum. Disc space narrowing at the L5-S1 level. CT/CTA Abd/Pelvis W/WO Contrast IMPRESSION: Hepatosplenomegaly. Sigmoid diverticulosis. Bilateral hip replacement causing the margin artifact with limited evaluation of the pelvic structures. Electronically Signed: Ankur Ferrara MD at 15:12 EDT ,
--- NOTE | 2024-08-25 14:55 | DCINST_ITS ---
Discharge Instructions Diet Discharge Diet: Light diet - advance as tolerated (Light soft diet in the evening tonight), Low fat / Low cholesterol and 2000 mg Sodium Diet Activity Discharge Activity: Return to Normal Activity Weight Bearing Status: Weight bearing as tolerated Dressing / Incision Call your doctor if you observe: Fever of 101 or Higher, Coldness, Increased Pain, Numbness or Tingling, Change in Color, Inability to urinate, Inability to have a bowel movement, Shortness of breath, Dizziness, Fainting spells, Swelling in the ankles, Chest pain, Prolonged hiccupping, Increased palpitations (irregular heartbeat) and Calf discomfort Follow Up Care When: IN 2 WEEKS Test Results: Test results from this visit will be discussed in further detail at your follow- up appointment, if applicable. Discharge Plan Admission Admit Date/Time: 08/24/24 11:56 Primary Reason for Your Visit: Lower GI bleed rectal ischemic Attending Provider: Samy Pelaez Primary Care Provider: Yandel Cabrera Instructions Additional Instructions / Restrictions: Patient follows her GI in Dr. Alfonso Woody Discharge Orders/Prescriptions Prescriptions: New metronidazole 500 mg tablet 500 mg PO Q8H 5 Days Qty: 15 0RF ciprofloxacin HCl [Cipro] 500 mg tablet 500 mg PO BID 5 Days Qty: 10 0RF Lactobacillus acidophilus 1 billion cell tablet 1,000 mmu cells PO BID 10 Days Qty: 20 0RF Rx Instructions: Probiotic, available [id number] Continued Nitrostat 0.4 mg sublingual PRN PRN (Reason: Chest Pain) Patient Comments: chest pain glipizide 10 mg tablet extended release 24hr 10 mg PO DAILY sertraline 100 mg tablet 150 mg PO DAILY omeprazole 40 mg capsule,delayed release(DR/EC) 40 mg PO BID olanzapine 7.5 mg tablet 7.5 mg PO QHS mirabegron 50 mg tablet extended release 24 hr 50 mg PO DAILY Ozempic 2 mg/dose (8 mg/3 mL) pen injector 2 mg subcut QWEEK Referrals / Follow Up: Yandel Cabrera MD [Primary Care Provider] - Disposition Disposition (needs filled in before D/C Order can be placed): Home, Self Care
--- NOTE | 2024-08-25 14:58 | CASEMGMT ---
ARMAND VAZQUEZ Assessment: Face to Face with pt for initial transition planning/care coordination assessment. ARMAND VAZQUEZ introduced self and role at [facility], pt voices understanding and consents to assessment. Pt is A&O x4 and answers all questions appropriately at this time. Pt lying in bed in no distress. Care providers, pharmacy, and demographics verified/updated. Strata: 2 Admitting Dx: GI bleed PCP: Rick Specialists: Cassidy, Gastrologist; Haris, Rotary Soil Stabilizer Operator. Preferred [facility]acy: [facility] Insurance: [employer] Prescription Benefit: yes LNOK: Daughter, Joanne Living Arrangements: Pt lives with in a 2 story home with 1 step to enter. Pt states she lives on the main level. ADLs:Pt reports I with ADLs and IADLs. Transportation: Pt drives self and denies concerns with transportation. DME: cane, portable toilet, medical alert. HHC/SNF: Previously at [facility], Used a HHC company but does not recall who it was. Pt states no concerns with going home at time of dc. Pt states no further concerns/needs. CM to follow. Advised pt to ask CM if any further question/concerns/needs arise, voices understanding. Pt Goal: Home Plan: Home, follow plan of care. Maxine ACUNA CM
[2024-08-25] MEDS: Acetaminophen 325 MG Tablet 650 MG PO (14:59)
[2024-08-25 15:04] LABS: Pathologist Review Reviewed
--- NOTE | 2024-08-25 15:07 | PCM.DC.SUM ---
Providers Date of Admission: 08/24/24 Date of Discharge: 08/25/24 Primary Care Physician: Dr. Yandel Cabrera MD Consultations 08/24/24 13:58 Consult: Gastroenterology Routine Consulting Provider: [facility] Reason for Consult: GI bleed EMERGENT Consult: No MD Notified: Yes Date Notified: 08/24/24 Time Notified: 11:59 Method of Notification: ED Physician Initiated Reason For Visit: gi bleed Diagnosis Discharge Diagnosis (1) GI (gastrointestinal bleed): Status: Acute Code(s): K92.2 - Gastrointestinal hemorrhage, unspecified Qualifiers: GI bleed type/associated pathology: anorectal hemorrhage Qualified Code(s): K62.5 - Hemorrhage of anus and rectum Plan This is a 63-year-old female being admitted for GI bleed for last 3 days. 1. Acute GI bleed most likely upper with rapid transfusion/lower GI bleed, suspected portal hypertensive/variceal bleed: Patient is being admitted in PCU. H&H every 6 hourly. Type and crossmatch as needed. Monitor vitals and H&H. Pantoprazole 40 g Q12 hourly. IV ceftriaxone 1 g IV daily and octreotide infusion. GI is consulted. Plan for EGD and later colonoscopy. She might have ischemic colitis, diverticulosis/inflammatory colitis too. She had EGD in the past and was told she has advanced reflux esophagitis/GERD. 08/25: Patient had EGD and colonoscopy today. Findings are described below. Advised follow-up colonoscopy in 3 years. She also has portal hypertensive gastropathy aomeprazole 40 mg twice daily continued. Nd esophageal varices. Patient already on colonoscopy was suspicious for ischemic colitis near rectal area therefore antibiotics prescribed. Patient had ceftriaxone for 2 days here. 5 more days of Cipro and Flagyl prescribed. Probiotic [id number]-[id number] for 10 days. EGD and colonoscopy 08/25/2024 Impressions : - Small (< 5 mm) esophageal varices. - Portal hypertensive gastropathy. Biopsied. - No gross lesions in the first portion of the duodenum. Colonoscopy Impression: - Localized severe inflammation was found in the rectum secondary to ischemic colitis. Biopsied. - One 19 mm polyp in the transverse colon, removed with a hot snare. Resected and retrieved. Clip was placed. 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 - The examination was otherwise normal on direct and retroflexion views. Recommendation: - [facility]. - Resume previous diet. - Continue present medications. - Await pathology results. - Repeat colonoscopy in 3 years for surveillance. 2. 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 Right upper quadrant ultrasound including spleen ordered. Does not have leg swelling and does not feel ascites clinically. 08/25: Right upper quadrant sonogram including spleen was done. Mild hepatomegaly with hepatic steatosis, fatty infiltration. Surgical cholecystectomy. No acute abnormality. Splenomegaly 21 cm in size. Suspicious varices at the splenic hilum. Prior to that patient had CT abdomen in April 2023 which also did not show nodular appearance of the liver but enlarged without space-occupying lesion. Advised follow-up with the GI or [facility] in 1 month 3. SLE and psoriatic arthritis: Patient had MATY and double-stranded DNA positive in the past in 2016. Patient was on biologic in the past but but has been discontinued because could not afford it. 4. Bipolar disorder: On olanzapine. 5. Depression with anxiety patient is on Zoloft 6 Diabetes mellitus type II: Accu-Chek before meals and at bedtime with Humalog sliding scale coverage and hypoglycemia protocol. Hold glipizide and semaglutide . 7. Hypertension-blood pressure controlled, home medications continued with dose adjustment as needed 8. Morbid obesity: BMI 42.0 kg/m? 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 Her daughter is next of kin after discussion of benefits/risks procedures involved with full code, DNR CC arrest and DNR CC, the patient opted for full code. Patient does want artificial life support including intubation, tube feed, ventilator and/chest compression, central venous catheter, vasopressor and DC shock if needed Discharge medication reconciliation done. Discharge follow-up instructions completed. Discharge process discussed with the patient and all questions were answered to patient's satisfaction. Follow with PCP in 1 to 2 weeks Total time spent, exact 35 minutes on discharge meds reconciliation, examination, coordination of care with nurses and ancillary staff, review of imaging and blood test and discussion with the patient on follow-up instructions. Clinical Impression(s) from Imaging Studies Abdomen Ultrasound 08/24/24 12:04 IMPRESSION: Splenomegaly with probable varices at the splenic hilum and recanalized umbilical vein. Electronically Signed: Shashi Love MD at 13:58 EDT , Laboratory Results 08/24/24 10:50: WBC 2.1 L, RBC 4.03 L, Hgb 11.1 L, Hct 34.6 L, MCV 85.9, MCH 27.5, MCHC 32.1, RDW Std Deviation 46.0 H, RDW Coeff of Tacho 14.6, Plt Count 62 L, MPV 9.6, Immature Gran % (Auto) 0.500, Neut % (Auto) 69.9, Lymph % (Auto) 21.6, [place] % (Auto) 6.6, Eos % (Auto) 0.9, Baso % (Auto) 0.5, Absolute Neuts (auto) 1.5 L, Absolute Lymphs (auto) 0.46 L, Nucleated RBC % 0, PT 14.5, INR 1.1, APTT 33.7, Sodium 142, Potassium 3.7, Chloride 109 H, Carbon Dioxide 26.0, Anion Gap 7, BUN 10, Creatinine 0.70, Estim Creat Clear Calc 95.41, Est GFR (MDRD) Af Amer 108, Est GFR (MDRD) Non-Af 89, BUN/Creatinine Ratio 14.3, Glucose 180 H, Calcium 9.4, Total Bilirubin 0.50, AST 33, ALT 35, Alkaline Phosphatase 114, Total Protein 7.3, Albumin 3.7, Globulin 3.6, Albumin/Globulin Ratio 1.0, Blood Type O POSITIVE, Antibody Screen NEGATIVE Medications at Discharge Home Medications Nitrostat 0.4 mg sublingual PRN PRN Chest Pain 03/27/15 glipizide 10 mg tablet, extended release 24 hr 10 mg PO DAILY 08/24/24 mirabegron 50 mg tablet,extended release 24 hr 50 mg PO DAILY 08/24/24 olanzapine 7.5 mg tablet 7.5 mg PO QHS 08/24/24 omeprazole 40 mg capsule,delayed release 40 mg PO BID 08/24/24 semaglutide 2 mg/dose (8 mg/3 mL) subcutaneous pen injector (Ozempic) 2 mg subcut QWEEK 08/24/24 sertraline 100 mg tablet 150 mg PO DAILY 08/24/24 Lactobacillus acidophilus 1 billion cell tablet 1,000 mmu cells PO BID 10 days #20 tabs 08/25/24 ciprofloxacin HCl 500 mg tablet (Cipro) 500 mg PO BID 5 days #10 tabs 08/25/24 metronidazole 500 mg tablet 500 mg PO Q8H 5 days #15 tabs 08/25/24 Physical Exam Narrative Patient did not had rectal bleed today. She was on colon prep solution. No abdominal tenderness. Physical exam: General: Alert, Oriented x3, Cooperative. Morbidly obese BMI 42.0 kg/m?, truncal obesity HEENT: Atraumatic, PERRLA, EOMI, Normocephalic Oral: Oral mucosa moist No Gingival or Mucosal Lesions/ Ulcerations Neck: Supple, No JVD, Negative Carotid Bruits Chest wall/Lungs: Air entry diminished in bilateral lung bases. No crepitation/rhonchi Cardiovascular: Regular rate, Regular Rhythm, Normal S1, Normal S2, No M/G/R Abdomen: Bowel Sounds Present, Soft, no tenderness. Non-Distended. No guarding/rigidity. : No dysuria. No renal angle tenderness. No suprapubic tenderness. Extremities: No edema, Capillary Refill Less than 3 Seconds Skin: No rashes, No breakdown Musculoskeletal: No Tenderness to Palpation of Joints or Extremities Neurological: Cranial nerves II-XII grossly intact, DTR 2+/4. No acute focal neurological deficit. Psych/Mental Status: Normal Affect, Appropriate. Weight / BMI Weight Weight: 242 lb 11.663 oz Body Mass Index (BMI) 15.4 ABG / Lab / Microbiology Data 08/25/24 05:43 08/25/24 05:43 Laboratory: Laboratory Results - last 24 hr 08/24/24 10:50: Diff Path Review Reviewed 08/24/24 17:29: POC Glucose 98 08/24/24 19:41: Hgb 11.5 L, Hct 35.5 L 08/25/24 01:59: Hgb 11.4 L, Hct 35.7 L 08/25/24 05:43: WBC 1.6 L, RBC 3.85 L, Hgb 10.7 L, Hct 33.4 L, MCV 86.8, MCH 27.8, MCHC 32.0, RDW Std Deviation 46.8 H, RDW Coeff of Tacho 14.7 H, Plt Count 60 L, MPV 10.3, Immature Gran % (Auto) 0.600, Neut % (Auto) 57.8, Lymph % (Auto) 31.1, [place] % (Auto) 8.7, Eos % (Auto) 1.2, Baso % (Auto) 0.6, Absolute Neuts (auto) 0.9 L, Absolute Lymphs (auto) 0.50 L, Nucleated RBC % 0, PT 15.4 H, INR 1.2, Sodium 141, Potassium 4.0, Chloride 111 H, Carbon Dioxide 25.0, Anion Gap 5, BUN 7, Creatinine 0.71, Estim Creat Clear Calc 51.43, Est GFR (MDRD) Af Amer 107, Est GFR (MDRD) Non-Af 88, BUN/Creatinine Ratio 9.9 L, Glucose 181 H, Calcium 8.9, Total Bilirubin 0.50, AST 54 H, ALT 49, Alkaline Phosphatase 155 H, Total Protein 6.7, Albumin 3.4, Globulin 3.3, Albumin/Globulin Ratio 1.0 D/C Instructions Discharge Diet: Light diet - advance as tolerated (Light soft diet in the evening tonight), Low fat / Low cholesterol and 2000 mg Sodium Diet Weight Bearing Status: Weight bearing as tolerated Call your doctor if you observe: Fever of 101 or Higher, Coldness, Increased Pain, Numbness or Tingling, Change in Color, Inability to urinate, Inability to have a bowel movement, Shortness of breath, Dizziness, Fainting spells, Swelling in the ankles, Chest pain, Prolonged hiccupping, Increased palpitations (irregular heartbeat) and Calf discomfort When: IN 2 WEEKS Meaningful Use Info Meaningful Use Meaningful Use Diagnoses (Choose all that apply): None applicable Ischemic Stroke Statin Dosing Therapy Reference: STATIN DOSE THERAPY REFERENCE: * Patients > 75 years receive moderate or high dose statin therapy. * Patients 75 years or YOUNGER should receive HIGH intensity statin dose unless contraindicated. You will be required to document reason for non-treatment if statin daily dose does not meet guidelines. HIGH DOSE STATIN THERAPY DAILY Atorvastatin > than or = to 40 mg Rosuvastatin > than or = to 20 mg Amlodipine + Atorvastatin > than or = to 2.5/40 mg Ezetimibe + Simvastatin 10/80 mg Simvastatin 80mg Discharge Plan Admission Admit Date/Time: 08/24/24 11:56 Primary Reason for Your Visit: Lower GI bleed rectal ischemic Attending Provider: Samy Pelaez Primary Care Provider: Yandel Cabrera Instructions Additional Instructions / Restrictions: Patient follows her local GI in [place], Dr. Hamilton If not, the patient can follow-up with [facility] 1 month can patient follow-up Discharge Orders/Prescriptions Prescriptions: New metronidazole 500 mg tablet 500 mg PO Q8H 5 Days Qty: 15 0RF ciprofloxacin HCl [Cipro] 500 mg tablet 500 mg PO BID 5 Days Qty: 10 0RF Lactobacillus acidophilus 1 billion cell tablet 1,000 mmu cells PO BID 10 Days Qty: 20 0RF Rx Instructions: Probiotic, available [id number] Continued Nitrostat 0.4 mg sublingual PRN PRN (Reason: Chest Pain) Patient Comments: chest pain glipizide 10 mg tablet extended release 24hr 10 mg PO DAILY sertraline 100 mg tablet 150 mg PO DAILY omeprazole 40 mg capsule,delayed release(DR/EC) 40 mg PO BID olanzapine 7.5 mg tablet 7.5 mg PO QHS mirabegron 50 mg tablet extended release 24 hr 50 mg PO DAILY Ozempic 2 mg/dose (8 mg/3 mL) pen injector 2 mg subcut QWEEK Referrals / Follow Up: Yandel Cabrera MD [Primary Care Provider] - Disposition Disposition (needs filled in before D/C Order can be placed): Home, Self Care Charges/Coding Visit Charges Inpatient E&M: 77591 Disch Hosp >30min
--- NOTE | 2024-08-25 16:43 | PCM.POSTANE2 ---
Anesthesia Postop Eval I Sum Postop Eval Completion status Anesthesia document: Postop Eval 1 completed: Yes Anesthesia Postop Eval I Summary Anesthesia Postop Eval I Summary: Anesthesia Postop Eval I: Assessment Summary Airway patent Yes 08/25/24 14:11 [email or web address] Spontaneous unlabored Yes 08/25/24 14:11 [email or web address] respirations Mental status Awake,Calm 08/25/24 14:11 [email or web address] nausea No 08/25/24 14:11 [email or web address] Vomiting No 08/25/24 14:11 [email or web address] Anesthesia Postop Eval I: Fluid Summary Crystalloid volume administer 600 08/25/24 14:11 [email or web address] (ml) Colloids volume administered ( ml) Blood Product volume administered (ml) Total IV fluid infused 600 08/25/24 14:11 [email or web address] Anesthesia Postop Eval I: Summary Notes Anesthesia Complication No 08/25/24 14:11 [email or web address] Anesthesia Complication Comment: Post-operative progress note Anesthesia: Postop Eval II Evaluation Mental status: Awake and Calm Pain Level: 0 nausea: No Vomiting: No Complications Anesthesia Complication: No
== END 2024-08-25 17:06 | disposition home or self-care (01) | DRG 378 ==
LOC: ED 11:47 → PCU 12:09
PROVIDERS: Internal Medicine Gastroenterology; Admitting Provider Internal Medicine; Emergency Provider Emergency Medicine; PCP Family Medicine; Visit Provider Internal Medicine
PROC: 0DJD8ZZ Inspection of Lower Intestinal Tract, Via Natural or Artificial Opening Endoscopic (ICD-10-PCS; CPT 45378; principal; 2024-08-25 13:55)
DX: K92.2 Gastrointestinal hemorrhage, unspecified (principal); D62 Acute posthemorrhagic anemia; D61.818 Other pancytopenia; K76.6 Portal hypertension; Z68.41 Body mass index [BMI] 40.0-44.9, adult; K74.60 Unspecified cirrhosis of liver; E11.65 Type 2 diabetes mellitus with hyperglycemia; F31.9 Bipolar disorder, unspecified; L40.50 Arthropathic psoriasis, unspecified; I10 Essential (primary) hypertension; E66.01 Morbid (severe) obesity due to excess calories; E87.6 Hypokalemia; K64.4 Residual hemorrhoidal skin tags; K63.5 Polyp of colon; K21.00 Gastro-esophageal reflux disease with esophagitis, without bleeding; K57.30 Diverticulosis of large intestine without perforation or abscess without bleeding; Z79.84 Long term (current) use of oral hypoglycemic drugs; Z87.891 Personal history of nicotine dependence; Z79.85 Long-term (current) use of injectable non-insulin antidiabetic drugs
CPT/HCPCS: 36415; 74174; 76705; 80053; 82962; 83735; 85014; 85018; 85025; 85610; 85730; 86850; 86900; 86901; 88305; 88312; 88342; 93005; 94668; 99285; J7030; J7040; Q9967; A4216; J2405

== ENCOUNTER → 2024-09-15 | Outpatient (CLI) | payer OTHER, SELFPAY ==
[2024-09-15 11:04] LABS: International Normalized Ratio 1.2; Prothrombin Time (Protime)PT. 14.7 SECONDS (11.7-14.9)
[2024-09-15 11:06] LABS: Partial Thromboplast Time 29.9 Seconds (24.1-36.2)
[2024-09-15 11:08] LABS: Erythrocyte Sedimentation Rate 18 mm/hr (0-30)
[2024-09-15 11:22] LABS: Triglycerides 156 mg/dL
[2024-09-15 13:07] LABS: HIV - WCH Non-Reactive (Nonreactive)
[2024-09-16 15:08] LABS: Anti-Centromere B Ab <0.2 AI (0.0-0.9); Anti-Chromatin <0.2 AI (0.0-0.9); Anti-Jo <0.2 AI (0.0-0.9); Anti-Mitochondrial AB <20.0 Units (0.0-20.0); Anti-Scleroderma-70 AB <0.2 AI (0.0-0.9); Anti-dsDNA Ab 41 IU/mL (0-9); RNP Ab <0.2 AI (0.0-0.9); SJOGREN'S Anti-SS-A test < 0.2 AI (0.0-0.9); SJOGREN'S Anti-SS-B test < 0.2 AI (0.0-0.9); Smith Ab <0.2 AI (0.0-0.9)
[2024-09-19 05:08] LABS: AFP, Tumor Marker 2.7 ng/mL (0.0-9.2); Angiotensin Convert Enzyme 72 U/L (14-82); Anti-Smooth Muscle ABS 11 Units (0-19); Ceruloplasmin 30.6 mg/dL (19.0-39.0); Cytoplasmic Ab (C-ANCA) <1:20 titer (Neg:<1:20); Dilute Prothrombin Time (dPT) 35.8 sec (0.0-47.6); Dilute Russell Viper Venom 37.5 sec (0.0-47.0); Endomysial Antibody IgA Negative (Negative); Gastrin, Serum 364 pg/mL (0-115); Immunoglobulin A 312 mg/dL (87-352); Immunoglobulin E 20 IU/mL (6-495); Immunoglobulin G 1036 mg/dL (586-1602); Immunoglobulin M 247 mg/dL (26-217); Interpretation Comment: (.); PTT-LA 43.2 sec (0.0-43.5); Perinuclear Ab (P-ANCA) <1:20 titer (Neg:<1:20); Thrombin Time 18.4 sec (0.0-23.0); dPT Confirm Ratio 0.96 Ratio (0.00-1.34); t-Transglutaminase IgA <2 U/mL (0-3)
== END | disposition home or self-care (01) ==
LOC: LAB 10:08
PROVIDERS: PCP Family Medicine; Referring Provider Internal Medicine Gastroenterology; Visit Provider Internal Medicine Gastroenterology
DX: R69 Illness, unspecified (principal); D63.8 Anemia in other chronic diseases classified elsewhere
CPT/HCPCS: 36415; 82105; 82164; 82390; 82784; 82785; 82941; 83516; 84478; 85610; 85652; 85730; 86037; 86140; 86225; 86235; 86255; 86703

== ENCOUNTER → 2024-09-24 | Outpatient (CLI) | payer OTHER, SELFPAY ==
--- NOTE | 2024-09-24 08:38 | US_ITS ---
STUDY: ABDOMINAL ULTRASOUND - ELASTOGRAPHY REASON FOR VISIT: Female, 64 years old. Cirrhosis. TECHNIQUE: Liver stiffness measurements were obtained on a [employer] RS 85 ultrasound machine using a CA 1-7 probe following the U guidelines. 3 measurements were obtained using a 2-D-SWE method. TheIQR/M was 12% suggesting a quality data set. TECHNICAL QUALITY: Adequate. COMPARISON: Comparison is made with prior study August 24, 2024. FINDINGS: Liver: There is no demonstrated mass lesion. Median liver stiffness measured 15.8 kPa. Abdomen: There is no demonstrated mass lesion. US/Elastography Parenchyma/Organ IMPRESSION: Liver stiffness measures 15.8 kPa compatible with F3-F4 (Moderate to severe liver fibrosis) Metavir score. Electronically Signed: Ankur Ferrara MD at 10:24 EDT ,
== END | disposition home or self-care (01) ==
LOC: US 08:37
PROVIDERS: PCP Family Medicine; Referring Provider Internal Medicine Gastroenterology; Visit Provider Internal Medicine Gastroenterology
DX: K74.60 Unspecified cirrhosis of liver (principal)
CPT/HCPCS: 76981

== ENCOUNTER → 2024-10-05 | Outpatient (CLI) | payer OTHER, SELFPAY | END | disposition home or self-care (01) | LOC: LABSPEC 17:47 | PROVIDERS: PCP Family Medicine; Visit Provider Physician Assistant | DX: R39.9 Unspecified symptoms and signs involving the genitourinary system (principal) | CPT/HCPCS: 87086; 87088 ==

== ENCOUNTER → 2024-10-06 | Outpatient (CLI) | payer OTHER, SELFPAY | END | disposition home or self-care (01) | LOC: LABSPEC 09:39 | PROVIDERS: PCP Family Medicine; Referring Provider Physician Assistant; Visit Provider Physician Assistant | DX: R39.9 Unspecified symptoms and signs involving the genitourinary system (principal) ==

== ENCOUNTER → 2024-10-14 | Outpatient (CLI) | payer OTHER, SELFPAY ==
--- NOTE | 2024-10-14 06:39 | MRI_ITS ---
EXAM: MR ABDOMEN WITHOUT INTRAVENOUS CONTRAST, MRCP PROTOCOL CLINICAL INDICATION: CIRRHOSIS TECHNIQUE: Multiplanar and multisequence MR images of the abdomen without intravenous contrast obtained with MRCP sequence. Three-dimensional post-processing reconstructions were performed. COMPARISON: CTA abdomen and pelvis 08/25/2024, abdominal ultrasound 08/24/2024 FINDINGS: LOWER THORAX: Normal. No pleural effusion. LIVER: Liver is enlarged measuring 20.4 cm in length. Nodular contour of the liver consistent with underlying cirrhosis. No space-occupying lesions are seen within the liver. GALLBLADDER AND BILE DUCTS: Susceptibility artifacts at the santhosh hepatis related to cholecystectomy clips. No intra- or extrahepatic biliary ductal dilation. No choledochal filling defect. PANCREAS: Normal. No focal cystic mass. No pancreatic duct dilation. SPLEEN: Spleen is also quite enlarged measuring 22 cm in length. ADRENALS: Normal. No nodules. KIDNEYS AND URETERS: Normal. Normal renal size and position. No hydronephrosis. INTRAPERITONEAL SPACE: Normal. No ascites or other fluid collection. VASCULATURE: Normal. Abdominal aorta is non-dilated. Portal and hepatic veins are patent. LYMPH NODES: No enlarged lymph nodes. MRI/MRCP Abdomen without Contrast IMPRESSION: 1. Hepatosplenomegaly related to liver cirrhosis and portal hypertension. 2. No evidence of a liver mass. 3. No bile duct obstruction. Electronically Signed: Gildardo Shahid MD at 8:30 [facility] ,
== END | disposition home or self-care (01) ==
LOC: MRI 06:28
PROVIDERS: PCP Family Medicine; Referring Provider Internal Medicine Gastroenterology; Visit Provider Internal Medicine Gastroenterology
DX: K74.60 Unspecified cirrhosis of liver (principal); D63.8 Anemia in other chronic diseases classified elsewhere
CPT/HCPCS: 74181

== ENCOUNTER → 2024-12-02 | Outpatient (CLI) | payer OTHER, SELFPAY ==
[2024-12-02 16:49] LABS: Absolute Lymphocyte Count 0.78 X10^3/uL (0.83-4.51); Absolute Neutrophil Count 2.5 X10^3/uL (2.0-7.7); Basophil# 0.02 X10^3/uL; Basophil% 0.6 % (0-1); Eosinophil# 0.04 X10^3/uL; Eosinophils% 1.1 % (0-5); Hematocrit 35.9 % (37-47); Hemoglobin 12.1 g/dL (12.0-15.0); Lymphocyte # 0.78 X10^3/ul (0.83-4.51); Lymphocyte % 21.6 % (19-41); Mean Corp Hgb Conc 33.7 g/dL (32-36); Mean Corpuscular Volume 83.1 fL (81-99); Mean Platelet Vol. 10.2 fl (6.2-12.0); Monocyte# 0.26 X10^3/uL; Monocyte% 7.2 % (0-10); NRBC Flagged by Analyzer 0 % (0-5); Neutrophil # 2.49 X10^3/uL (2.7-7.7); Neutrophil % 68.9 % (47-70); POSITIVE COUNT YES; Platelet Count 84 K/mm3 (150-450); RBC Distribution Width CV 15.3 % (11.6-14.6); RBC Distribution Width SD 46.5 fl (35.1-43.9); Red Blood Count 4.32 M/mm3 (4.2-5.4); White Blood Count 3.6 K/mm3 (4.4-11.0)
[2024-12-02 17:00] LABS: International Normalized Ratio 1.1; Prothrombin Time (Protime)PT. 14.5 SECONDS (11.7-14.9)
[2024-12-02 17:01] LABS: Erythrocyte Sedimentation Rate 15 mm/hr (0-30); Partial Thromboplast Time 30.2 Seconds (24.1-36.2)
[2024-12-02 17:25] LABS: ALB/GLOB Ratio 1.1 RATIO (0.9-2.4); AST(SGOT) 42 U/L (15-37); Alanine Aminotransfer ALT/SGPT 34 U/L (13-56); Alkaline Phosphatase 130 U/L (45-117); Anion Gap 6 (5-15); BUN 19 mg/dL (7-18); BUN/Creat Ratio 23.7 RATIO (10-20); Calcium,Total 9.6 mg/dL (8.5-10.1); Chloride 108 mmol/L (98-107); EST Glomerular Filtration Rate 76 mL/min (>60); Est Glom Filt Rate - Afr Amer 92 mL/min (>60); Globulin 3.7 g/dL (2.2-4.2); Glucose 108 mg/dL (74-106); LDH 162 U/L (84-246); Potassium 4.4 mmol/L (3.5-5.1); Protein, Total 7.7 g/dL (6.4-8.2); Sodium Level 139 mmol/L (136-145)
== END | disposition home or self-care (01) ==
LOC: LAB 15:43
PROVIDERS: PCP Family Medicine; Referring Provider Internal Medicine Gastroenterology; Visit Provider Internal Medicine Gastroenterology
DX: K75.81 Nonalcoholic steatohepatitis (NASH) (principal)
CPT/HCPCS: 36415; 80053; 83615; 85025; 85610; 85652; 85730; 86140

== ENCOUNTER → 2025-03-01 | Outpatient (CLI) | payer OTHER, SELFPAY | END | disposition home or self-care (01) | LOC: LABSPEC 16:12 | PROVIDERS: PCP Family Medicine; Referring Provider Physician Assistant; Visit Provider Physician Assistant | DX: R39.9 Unspecified symptoms and signs involving the genitourinary system (principal) | CPT/HCPCS: 87077; 87086; 87088; 87186 ==

== ENCOUNTER 2025-04-06 11:47 | Emergency (ER) | payer OTHER, SELFPAY ==
[2025-04-06 11:47] VITALS: BP 129/65; PULSE 82; RESP 19; TEMP 36.7; O2SAT 98
--- NOTE | 2025-04-06 13:10 | CT_ITS ---
PROCEDURE: SPINE LUMBAR WITHOUT CONTRAST 04/06/2025 REASON FOR EXAM: INTRACTABLE PAIN Chronic back pain. Worsening pain. Unable to walk. TECHNIQUE: Lumbar spine CT without contrast. Coronal and Sagittal reconstruction series were provided. One or more dose reduction techniques were used (e.g., Automated exposure control, adjustment of the mA and/or kV according to patient size, use of iterative reconstruction technique COMPARISON: None. RADIATION DOSE SUMMARY: CTDlvol: 40.60 mGy DLP: 1137.42 mGycm FINDINGS: Vertebrae: No vertebral fracture. Alignment: Normal alignment. L1-2: Mild degree of disc space narrowing. Spondylosis. Mild degree of bilateral neural foraminal stenosis. L2-3: Mild degree of disc space narrowing. Hypertrophy of the facet joints. Moderate bilateral neural foraminal stenosis. L3-4: The disc space height is well-maintained. Diffuse posterior disc bulge. Facet joint osteoarthritis and hypertrophy as well as hypertrophy of the ligamentum flava. There is evidence of bilateral neural foraminal stenosis and central canal stenosis. The disc space height is well-maintained. Facet joint osteoarthritis and hypertrophy. Moderate degree of bilateral neural foraminal stenosis and mild central canal stenosis. L4-5: The disc space height is well-maintained. Facet joint osteoarthritis and hypertrophy. Moderate degree of bilateral neural foraminal stenosis and mild central canal stenosis. L5-S1: Marked degree of disc space narrowing and disc degeneration. Facet joint osteoarthritis and hypertrophy. Bilateral neural foraminal stenosis. Sacrum: CT/Spine Lumbar without Contrast IMPRESSION: No evidence of vertebral fracture. Multilevel disc space narrowing and degenerative changes and stenosis as Reading Location: [facility]
--- NOTE | 2025-04-06 13:11 | EKG12_ITS ---
Test Reason : BACK PAIN Blood Pressure : */* mmHG Vent. Rate : 81 BPM Atrial Rate : 81 BPM P-R Int : 172 ms QRS Dur : 88 ms QT Int : 390 ms P-R-T Axes : 31 -38 118 degrees QTcB Int : 453 ms Normal sinus rhythm Left axis deviation Anterolateral infarct (cited on or before 04-Dec-2020) Abnormal ECG Confirmed by To North ([id number]), city editor NICOLE PINTO ([id number]) on 04/08/2025 9:58:24 AM Referred By: Confirmed By: To [facility]
--- NOTE | 2025-04-06 13:23 | EDS_ITS ---
HPI History of Present Illness Chief Complaint: Back Narrative Narrative: 64-year-old female presents with her sister because of intractable back pain that she has been having for weeks if not longer. She denies any recent injury. Of note, she saw her pain management doctor, Dr. Lynne, and had injections in her back on Saturday. This was 4 days ago. She states that she was told by him that if she did not have improvement in her back pain that she should come to the emergency department. She states that she has been denied an MRI twice, mainly because she did not do 6 weeks of physical therapy. She denies any fevers or chills. She expresses that she is having a hard time taking care of herself at home and that she has had generalized weakness. Her back pain is so severe that it is difficult for her to get up off the toilet. She denies any loss of bowel or bladder, but states that she cannot make it to the bathroom in time and when she stands up, she will let loose with both urination and sometimes bowel movements. No saddle anesthesia. She states her legs are weak, and that her legs buckle underneath her when she tries to stand and walk. This has been ongoing for the last few days if not longer. 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 She also endorses a 20 pound weight loss, and states that when she swallows, she feels a strange texture when she swallows. She states that her throat is not blocked, but it feels strange and that she was told that she is having a lot of postnasal drip and sinus drainage. [facility] Medical History Abnormal colonoscopy Psoriasis Abdominal wall abscess Hypertension GERD (gastroesophageal reflux disease) Bipolar disorder Diabetes mellitus, type II Morbid obesity with BMI of 45.0-49.9, adult Home Medications ?Medication ?Instructions ?Recorded ?Last Taken ?Type glipizide 10 mg tablet, extended 10 mg PO DAILY diabet es 08/24/24 08/24/24 History release 24 hr mirabegron 50 mg tablet,extended 50 mg PO DAILY bladde r 08/24/24 08/24/24 History release 24 hr olanzapine 7.5 mg tablet 7.5 mg PO QHS mental health 08/24/24 08/23/24 History omeprazole 40 mg capsule,delayed 40 mg PO BID 08/24/24 08/24/24 History release semaglutide 2 mg/dose (8 mg/3 mL) 2 mg subcut QWEEK di abetes 08/24/24 08/20/24 History subcutaneous pen injector (Ozempic) sertraline 100 mg tablet 150 mg PO DAILY mental healt h 08/24/24 08/24/24 History ondansetron HCl 4 mg tablet 4 mg PO Q8H PRN 09/15/24 U nknown History carvedilol 3.125 mg tablet 6.25 mg PO BID slow blood f low 02/04/25 Unknown History methocarbamol 500 mg tablet 500 mg PO TID PRN pain/spa sms #30 02/04/25 Unknown Rx tabs cephalexin 500 mg capsule 500 mg PO BID #14 caps 04/06 Unknown Rx Allergy/AdvReac Type Severity Reaction Status Date / Time No Known Allergies Allergy Verified 04/06/25 11:47 Family History Father Lung cancer Mother Diabetes Grandmother No problems noted. Grandfather No problems noted. Surgical History S/P tubal ligation S/P foot surgery S/P total hysterectomy S/P cholecystectomy Status post hip surgery Social History household members: spouse Smoking Status: Former smoker alcohol intake: current ROS ROS ED ROS Narrative Review of systems positive for intractable low back pain, no recent falls, no loss of bowel or bladder, no fevers or chills. She endorses generalized weakness, and knee buckling. She states that when she swallows she feels a weird texture. EXAM Physical Exam Narrative Exam Narrative: Afebrile. Vital signs noted. Nontoxic-appearing. Cardiovascular examination feels a regular rate and rhythm. Lungs are clear to auscultation bilaterally. Abdomen is soft, nontender, without guarding or rebound. Neurological examination is nonfocal and nonlateralizing. HEENT examination shows PERRL, EOMI. Airway is patent. No drooling or trismus. She may have some postnasal drainage noted. She has neurovascularly intact to the bilateral lower extremities. DTRs patellar equal and symmetric but diminished. They are difficult to elicit. She has full range of motion of her bilateral lower extremities and is able to flex and extend at the knees bilaterally. Palpable dorsalis pedis pulses bilaterally. Const Vital Signs: 04/06/25 11:47 04/06/25 13:47 04/06/25 15:14 Temperature 98.1 F Temperature Source Oral Pulse Rate 82 86 84 Respiratory Rate 19 H 16 18 Blood Pressure 129/65 H 129/60 H Blood Pressure Mean 86 83 Pulse Ox 98 97 97 Oxygen Delivery Method Room Air Room Air MDM MDM MDM Narrative Medical decision making narrative: Differential diagnosis includes but not limited to compression fracture of spine, lumbar versus generalized weakness versus dehydration versus electrolyte imbalance. I discussed with the patient imaging of her back and need for social work consult. She becomes almost tearful on examination stating that her has to take care of her and that she is unable to get off the toilet and sometimes even walk even though she has a walker. I do not feel that she has signs of cauda equina or that she requires stat MRI of her lumbar spine. I will obtain baseline laboratories and EKG in the event that she requires admission for placement in rehab. EKG was obtained and interpreted by myself independently as normal sinus rhythm at 81 bpm without ectopy or acute ST changes. No STEMI. I reviewed her laboratory work which shows a normal white count of 4.7 with hemoglobin 12.0, hematocrit 35.7, platelet count low at 85. When compared to prior labs, she has chronic thrombocytopenia and this is improved over previous if not at her baseline currently. I reviewed her CMP and she has AST slightly elevated at 76 with alk phos of 114, glucose normal at 95 with BUN of 17 and creatinine low at 0.55, normal sodium, potassium, and chloride. Urinalysis is positive for nitrites with WBCs 25-50. This was sent for culture. She was given her first dose of cephalexin here in the emergency department. I chose oral antibiotics because the patient told the social sciences research scientist that she prefers home PT and OT. fruit or nut farmworker has arranged for [facility] to start with her on , 2 days from now as the patient does not want to be admitted to the hospital or go to inpatient rehab/detention facility. At this point in time, she was given morphine and Phenergan for her back pain. Repeat examination shows that her back pain has improved. I reviewed the radiology report of the CT of the lumbar spine which shows DJD and multi level degenerative changes but no evidence of an acute fracture. She does have spinal stenosis as well. Once again, I do not feel that she requires stat MRI of the lumbar spine as there are no signs of cauda equina currently. As the patient is motivated for discharge and would like to do home physical therapy, I feel she can be discharged to follow-up. She was written a prescription for cephalexin for her cystitis. Return instructions to the emergency department were review ed. Disposition is discharged home, in stable condition History & Record Review Discussion w/independent historian: Patient Additional record(s) reviewed:: Prior labs Lab Data Attestation: I reviewed the patient's lab results. Labs: Laboratory Results - last 24 hr 04/06/25 04/06/25 13:18 14:25 WBC 4.7 RBC 4.15 L Hgb 12.0 Hct 35.7 L MCV 86.0 MCH 28.9 MCHC 33.6 RDW Std Deviation 49.2 H RDW Coeff of [place]acho 16.0 H Plt Count 85 L MPV 10.2 Immature Gran % (Auto) 0.400 Neut % (Auto) 75.6 H Lymph % (Auto) 16.8 L [place] % (Auto) 6.6 Eos % (Auto) 0.4 Baso % (Auto) 0.2 Absolute Neuts (auto) 3.5 Absolute Lymphs (auto) 0.79 L Nucleated RBC % 0 Sodium 139 Potassium 4.0 Chloride 100 Carbon Dioxide 23.7 Anion Gap 16 H BUN 17 Creatinine 0.55 L Est GFR (MDRD) Non-Af 102 BUN/Creatinine Ratio 31.0 H Glucose 95 Calcium 9.9 Total Bilirubin 0.70 AST 76 H ALT 30 Alkaline Phosphatase 114 H Total Protein 7.4 Albumin 4.3 Globulin 3.0 Albumin/Globulin Ratio 1.4 Urine Color Yellow Urine Clarity Cloudy Urine pH 6.0 Ur Specific [place] 1.020 Urine Protein 30 H Urine Glucose (UA) Normal Urine Ketones 150 A* Urine Occult Blood 250 H Urine Nitrite Positive H Urine Bilirubin Negative Urine Urobilinogen Normal Ur Leukocyte Esterase 100 H Urine RBC 5-10 SEEN Urine WBC 25-50 SEEN Ur Squamous Epith Cells 0-5 SEEN Urine Bacteria 2+ Urine Mucus 0 SEEN Radiography Diagnostic Testing: Clinical Impression(s) from Imaging Studies Lumbar Spine CT 04/06/25 13:10 IMPRESSION: No evidence of vertebral fracture. Multilevel disc space narrowing and degenerative changes and stenosis as Reading Location: [facility] Discharge Plan Triage Chief Complaint: Back ED Provider: Shashi Sanchez Dx/Rx/DC Orders Clinical Impression: Degenerative disc disease, lumbar, Generalized weakness, Back pain, Thrombocytopenia, Urinary tract infection Instructions: ED Anemia, Type Not Specified (Adult), ED Back Pain (Acute or Chronic), ED Degenerative Disk Disease, ED Cystitis Female Adult, ED Weakness Uncertain Cause Prescriptions: New cephalexin 500 mg capsule 500 mg PO BID Qty: 14 0RF No Action ondansetron HCl 4 mg tablet 4 mg PO Q8H PRN carvedilol 3.125 mg tablet 6.25 mg PO BID Patient Comments: There is a risk of bleeding out so I was prescribed this medication to slow the blood flow methocarbamol 500 mg tablet 500 mg PO TID PRN (Reason: pain/spasms) Qty: 30 0RF glipizide 10 mg tablet extended release 24hr 10 mg PO DAILY sertraline 100 mg tablet 150 mg PO DAILY omeprazole 40 mg capsule,delayed release(DR/EC) 40 mg PO BID olanzapine 7.5 mg tablet 7.5 mg PO QHS mirabegron 50 mg tablet extended release 24 hr 50 mg PO DAILY Ozempic 2 mg/dose (8 mg/3 mL) pen injector 2 mg subcut QWEEK Primary Care Provider: Yandel Cabrera Referrals: Mike Lynne MD [Med Staff - Active Staff] - As soon as possible Yandel Cabrera MD [Primary Care Provider] - 3-5 Days if not improving Activity Restrictions/Additional Instructions: You have been set up for home health care/home PT (physical therapy). [facility] you on . Follow-up with your pain management physician. Return to the emergency department with fever, new or worsening symptoms. Print Language: Khmer Disposition Disposition: Home, Self Care
[2025-04-06 13:34] LABS: Absolute Lymphocyte Count 0.79 X10^3/uL (0.83-4.51); Absolute Neutrophil Count 3.5 X10^3/uL (2.0-7.7); Basophil# 0.01 X10^3/uL; Basophil% 0.2 % (0-1); Eosinophil# 0.02 X10^3/uL; Eosinophils% 0.4 % (0-5); Hematocrit 35.7 % (37-47); Lymphocyte # 0.79 X10^3/ul (0.83-4.51); Lymphocyte % 16.8 % (19-41); Mean Corp Hgb Conc 33.6 g/dL (32-36); Mean Corpuscular Hgb 28.9 pg (27.0-32.0); Mean Platelet Vol. 10.2 fl (6.2-12.0); Monocyte# 0.31 X10^3/uL; Monocyte% 6.6 % (0-10); NRBC Flagged by Analyzer 0 % (0-5); Neutrophil # 3.54 X10^3/uL (2.7-7.7); Neutrophil % 75.6 % (47-70); POSITIVE COUNT YES; Platelet Count 85 K/mm3 (150-450); RBC Distribution Width SD 49.2 fl (35.1-43.9); Red Blood Count 4.15 M/mm3 (4.2-5.4); White Blood Count 4.7 K/mm3 (4.4-11.0)
[2025-04-06 13:47] VITALS: BP 129/60; PULSE 86; RESP 16; O2SAT 97
[2025-04-06] MEDS: Ondansetron 4 MG/2 ML Vial IV (13:55)
[2025-04-06] MEDS: Morphine 4 MG/ML Syringe IV (13:55)
[2025-04-06 14:05] LABS: ALB/GLOB Ratio 1.4 RATIO (0.9-2.4); AST(SGOT) 76 U/L (<=31); Alanine Aminotransfer ALT/SGPT 30 U/L (<=34); Albumin, Serum 4.3 g/dL (3.4-4.8); Alkaline Phosphatase 114 U/L (35-104); Anion Gap 16 (5-15); BUN 17 mg/dL (4-19); Calcium,Total 9.9 mg/dL (7.6-11.0); Carbon Dioxide 23.7 mmol/L (21.0-32.0); Chloride 100 mmol/L (98-108); Creatinine, Serum 0.55 mg/dL (0.70-1.20); EST Glomerular Filtration Rate 102 (>60); Glucose 95 mg/dL (70-99); Protein, Total 7.4 g/dL (5.9-8.4); Sodium Level 139 mmol/L (133-145)
--- NOTE | 2025-04-06 14:20 | CM.ED ---
Social Work SW met with patient, introduced self and role in hospital. Patient reports that her back pain has become debilitating and she is having a hard time caring for herself at home. Patient reports that she was supposed to be going to outpatient therapy but she has been unable to get to her car and drive to the facility. Patient reports wanting to have HH care. Patient states she has used [facility] in the past and is fine using them again. SW attempted to contact [facility] several times, however the phone beeped once and then went silent with every call. SW went back to patient to determine other choices. Patient states she is is okay with [facility] or [facility]. SW contacted [facility] and spoke with Karen. Karen reviewing patient record and contacting DHARMESH back. Jodi Steven, [employer], HULL SORTER
[2025-04-06 14:33] LABS: Mucous, Urine 0 SEEN /hpf (<or=2+)
[2025-04-06 14:38] LABS: Color, Urine Yellow (Yellow); Glucose, Dipstick Normal (Normal); Leukocyte Esterase-Dipstick 100 /ul (Negative); Nitrite-Dipstick Positive (Negative); Occult Blood-Urine 250 /ul (Negative); Protein-Dipstick 30 mg/dl (Negative); Urine Bilirubin Dipstick Negative (Negative); Urine Clarity Cloudy (Clear); Urine Urobilinogen Normal (Normal)
[2025-04-06 14:47] LABS: Ketone-Dipstick 150 mg/dl (Negative)
[2025-04-06 15:14] VITALS: PULSE 84; RESP 18; O2SAT 97
[2025-04-06 15:14] LABS: White Blood Cells 25-50 SEEN /hpf (0-5)
[2025-04-06 15:15] LABS: Red Blood Cells-Urine 5-10 SEEN /hpf (0-5)
[2025-04-06 15:16] LABS: Bacteria 2+ /hpf (None Seen); Squamous Epithelial Cells - UA 0-5 SEEN /hpf (5-10)
[2025-04-06 15:36] VITALS: BP 125/67; PULSE 84; RESP 15; TEMP 36.1; O2SAT 94
[2025-04-06] MEDS: Cephalexin 250 MG Capsule 500 MG PO (15:36)
--- NOTE | 2025-04-06 16:53 | CM.ED ---
Social Work [facility] called back and accepted patient. Karen stated they would begin services on . Karen also stated that when they ran patients insurance, that it appears that she still has a deductable to meet prior to her services being covered. Karen stated they amount looks like it may be between 850.00 and 900.00. Patient notified of same and is in agreement with starting services. No further needs identified at this time. Plan: Patient to [place] home and begin HH care on . Jodi Steven, BIOLOGIST, LOADING MACHINE TOOL SETTER
== END 2025-04-06 15:41 | disposition home or self-care (01) ==
PROVIDERS: Emergency Provider Emergency Medicine; PCP Family Medicine; Visit Provider Emergency Medicine
DX: M51.369 Other intervertebral disc degeneration, lumbar region without mention of lumbar back pain or lower extremity pain (principal); E11.9 Type 2 diabetes mellitus without complications; N39.0 Urinary tract infection, site not specified; Z87.891 Personal history of nicotine dependence; I10 Essential (primary) hypertension; D69.6 Thrombocytopenia, unspecified; R53.1 Weakness; K21.9 Gastro-esophageal reflux disease without esophagitis; M48.00 Spinal stenosis, site unspecified
CPT/HCPCS: 72131; 80053; 81001; 85025; 87077; 87086; 87088; 87186; 93005; 96374; 99284; P9612; A4216; J2405

== ENCOUNTER 2025-04-09 14:03 | Inpatient (IN) | payer OTHER, SELFPAY ==
[2025-04-09 14:05] VITALS: BP 126/59; PULSE 90; RESP 18; TEMP 36.6; O2SAT 96; BMI 35.6
--- NOTE | 2025-04-09 14:15 | EX.ED.DYSGE1 ---
HPI History of Present Illness Chief Complaint: General Illness Informant: patient Narrative Narrative: 64-year-old female has been having debilitating back pain since the end of last year, somewhere around 6 months. She saw a back specialist with [facility], she states they attempted to get an MRI of her back it was declined by insurance. She submitted a written appeal and it was refused/declined. She saw Dr. Camacho and had some injections in her low back 1 week ago today. She states that really helped the pain but she is still having weakness in her legs she has been having pain and weakness in the legs to the point where she cannot get up and ambulate independently. She lives at home with her , he is at work all day, and he is at home at night in order to assist her but during today she has no assistance. She is here for further treatment and possible admission at the recommendation of her pain management physician since her weakness is no better. She states her oral intake has been very poor. She has had a 30 pound weight loss unintentional. She has had discomfort in her throat and discomfort with swallowing for the past 2 weeks which is not helping this. She is having less bowel movements than usual because of her decreased intake, but she denies any bowel or bladder dysfunction or retention. No saddle anesthesia. No numbness in her legs. She states her pain is not an issue right now, and is not limiting her in trying to get up and stand/walk, it is weakness. Her arms are not weak. She has no pain in her neck or head. [facility] Medical History Abnormal colonoscopy Psoriasis Abdominal wall abscess Hypertension GERD (gastroesophageal reflux disease) Bipolar disorder Diabetes mellitus, type II Morbid obesity with BMI of 45.0-49.9, adult Home Medications ?Medication ?Instructions ?Recorded ?Last Taken ?Type mirabegron 50 mg tablet,extended 50 mg PO DAILY bladder 08/24/24 04/08/25 History release 24 hr olanzapine 7.5 mg tablet 7.5 mg PO QHS mental health 08/24/24 04/08/25 History omeprazole 40 mg capsule,delayed 40 mg PO BID 08/24/24 04/08/25 History release semaglutide 2 mg/dose (8 mg/3 mL) 2 mg subcut QWEEK diabetes 08/24/24 04/04/25 History subcutaneous pen injector (Ozempic) sertraline 100 mg tablet 150 mg PO DAILY mental health 08/24/24 04/08/25 History ondansetron HCl 4 mg tablet 4 mg PO Q6H PRN nausea and vomiting 09/15/24 Unknown History carvedilol 3.125 mg tablet 3.125 mg PO BID slow blood flow 02/04/25 04/08/25 History methocarbamol 500 mg tablet 500 mg PO TID PRN pain/spasms #30 02/04/25 Unknown Rx tabs cephalexin 500 mg capsule 500 mg PO BID #14 caps 04/06/25 04/08/25 Rx glipizide 2.5 mg tablet, extended 2.5 mg PO DAILY 04/09/25 04/08/25 History release 24 hr glipizide 5 mg tablet, extended 5 mg PO DAILY 04/09/25 04/08/25 History release 24 hr Allergy/AdvReac Type Severity Reaction Status Date / Time No Known Allergies Allergy Verified 04/09/25 14:05 Family History Father Lung cancer Mother Diabetes Grandmother No problems noted. Grandfather No problems noted. Surgical History S/P tubal ligation S/P foot surgery S/P total hysterectomy S/P cholecystectomy Status post hip surgery Social History household members: spouse Smoking Status: Former smoker alcohol intake: current substance use type: does not use ROS ROS ED Constitutional Constitutional ED: Reports weakness and weight loss; Denies chills or fever(s) Eyes Eyes: Denies change in vision or diplopia ENT ENT ED: Reports sore throat; Denies ear pain or rhinorrhea Cardiovascular Cardiovascular: Denies chest pain or palpitations Respiratory/Chest Respiratory/Chest: Denies cough or dyspnea Gastrointestinal Gastrointestinal: Denies abdominal pain, constipation, fecal incontinence, nausea or vomiting Genitourinary Genitourinary ED: Reports other Details: no urinary retention ; Denies abdominal discomfort or urinary incontinence Musculoskeletal Musculoskeletal: Reports as per HPI and back pain; Denies neck pain Integumentary Denies rash or wounds Neurologic Neurologic: Reports weakness; Denies headache(s) or paresthesias Psychiatric Psychiatric: Denies suicidal thoughts EXAM Physical Exam Const Vital Signs: 04/09/25 14:05 04/09/25 14:08 04/09/25 15:40 Temperature 98 F Temperature Source Oral Pulse Rate 90 83 Respiratory Rate 18 16 Respiratory Effort Normal Non-Labored Respiratory Pattern Normal Blood Pressure 126/59 H 132/63 H Blood Pressure Mean 81 86 Pulse Ox 96 98 Oxygen Delivery Method Room Air Room Air 04/09/25 16:00 Temperature 98.9 F Temperature Source Pulse Rate 85 Respiratory Rate 16 Respiratory Effort Respiratory Pattern Blood Pressure 134/67 H Blood Pressure Mean 89 Pulse Ox 97 Oxygen Delivery Method Positive well nourished, well developed and obese General Appearance ED: well developed and NAD Nutritional Appearance: obese HEENT Reports moist mucous membranes HEENT Narrative: Posterior pharynx erythematous, there is clear evidence of postnasal drip. Negative for trauma or tenderness Eyes PERRL and EOMs intact bilaterally Neck full ROM and supple Resp normal respiratory effort and clear to auscultation bilaterally Cardio regular rate, regular rhythm and no murmurs GI normal to inspection, nondistended, normoactive bowel sounds, soft to palpation and non-tender Auscultation: normoactive bowel sounds Palpation: soft Back/Spine normal to inspection General Back: other FROM Lumbar Spine / Lower Back: paraspinal muscle tenderness and straight leg raise negative bilaterally; Negative for ROM limited or lumbar spinal tenderness Extremity normal to inspection, full ROM and no pedal edema General Extremety ED: Negative for edema, pulses abnormal or tenderness General Extremity: Negative for edema or pulses abnormal Neuro oriented x3 and no sensory deficits noted Sensorium / Orientation: alert Motor Exam: strength 5/5 throughout and clonus absent Deep Tendon Reflexes: Rt Patellar (L4): 1+, Lt Patellar (L4): 1+, Rt Ankle (S1): 1+ and Lt Ankle (S1): 1+ Deep Tendon Reflexes Back: Rt Patellar (L4): 1+, Lt Patellar (L4): 1+, Rt Ankle (S1): 1+ and Lt Ankle (S1): 1+ Plantar Reflex: Downgoing: bilateral Psych mental status grossly normal and thought process normal Skin no rashes or lesions noted and no wounds MDM MDM MDM Narrative Medical decision making narrative: I reviewed her labs and urinalysis and gave her some IV fluids in the meantime. Discussed with hospitalist for admission. Do not think the MRI that she needs needs to be emergent, however with her unable to walk, an MRI of her lumbar spine is certainly indicated. She does not have symptoms or findings of conus medullaris syndrome or cauda equina syndrome. Lab Data Attestation: I reviewed the patient's lab results. Labs: Laboratory Results - last 24 hr 04/09/25 04/09/25 14:25 14:50 WBC 8.0 RBC 4.40 Hgb 12.7 Hct 37.1 MCV 84.3 MCH 28.9 MCHC 34.2 RDW Std Deviation 49.5 H RDW Coeff of [place] 16.5 H Plt Count 107 L MPV 9.4 Immature Gran % (Auto) 0.900 Neut % (Auto) 73.4 H Lymph % (Auto) 17.9 L [place] % (Auto) 7.0 Eos % (Auto) 0.5 Baso % (Auto) 0.3 Absolute Neuts (auto) 5.9 Absolute Lymphs (auto) 1.43 Nucleated RBC % 0 PT 16.0 H INR 1.3 Sodium 136 Potassium 3.9 Chloride 99 Carbon Dioxide 16.8 L Anion Gap 20 H BUN 15 Creatinine 0.70 Estim Creat Clear Calc 78.03 Est GFR (MDRD) Non-Af 96 BUN/Creatinine Ratio 20.9 H Glucose 87 Calcium 9.7 Urine Color Yellow Urine Clarity Clear Urine pH 6.0 Ur Specific [place] 1.025 Urine Protein 30 H Urine Glucose (UA) Normal Urine Ketones 150 A* Urine Occult Blood 25 H Urine Nitrite Negative Urine Bilirubin Negative Urine Urobilinogen Normal Ur Leukocyte Esterase Negative Management Discussion w/another healthcare provider: Hospitalist Discharge Plan Dx/Rx/DC Orders Clinical Impression: Inability to walk, Weakness of both lower extremities, Acute lumbar back pain, Debility Disposition Disposition: Acute Care Hospital [facility]
[2025-04-09] MEDS: 0.9% Normal Saline (1000mL) 1,000 ML 250 ML IV (14:28)
[2025-04-09 14:43] LABS: Absolute Lymphocyte Count 1.43 X10^3/uL (0.83-4.51); Absolute Neutrophil Count 5.9 X10^3/uL (2.0-7.7); Basophil# 0.02 X10^3/uL; Basophil% 0.3 % (0-1); Eosinophil# 0.04 X10^3/uL; Eosinophils% 0.5 % (0-5); Hematocrit 37.1 % (37-47); Hemoglobin 12.7 g/dL (12.0-15.0); Lymphocyte # 1.43 X10^3/ul (0.83-4.51); Lymphocyte % 17.9 % (19-41); Mean Corp Hgb Conc 34.2 g/dL (32-36); Mean Corpuscular Hgb 28.9 pg (27.0-32.0); Mean Corpuscular Volume 84.3 fL (81-99); Mean Platelet Vol. 9.4 fl (6.2-12.0); Monocyte# 0.56 X10^3/uL; NRBC Flagged by Analyzer 0 % (0-5); Neutrophil # 5.87 X10^3/uL (2.7-7.7); Neutrophil % 73.4 % (47-70); Platelet Count 107 K/mm3 (150-450); RBC Distribution Width CV 16.5 % (11.6-14.6); RBC Distribution Width SD 49.5 fl (35.1-43.9)
[2025-04-09 14:50] LABS: International Normalized Ratio 1.3
[2025-04-09 15:00] LABS: Bacteria 0 SEEN /hpf (None Seen); Mucous, Urine 0 SEEN /hpf (<or=2+)
[2025-04-09 15:09] LABS: Anion Gap 20 (5-15); BUN 15 mg/dL (4-19); BUN/Creat Ratio 20.9 RATIO (10-20); Calcium,Total 9.7 mg/dL (7.6-11.0); Carbon Dioxide 16.8 mmol/L (21.0-32.0); Chloride 99 mmol/L (98-108); EST Glomerular Filtration Rate 96 (>60); Estimated Creatinine Clearance 78.03 ml/min (50-250); Glucose 87 mg/dL (70-99); Potassium 3.9 mmol/L (3.3-5.1); Sodium Level 136 mmol/L (133-145)
[2025-04-09 15:24] LABS: Color, Urine Yellow (Yellow); Glucose, Dipstick Normal (Normal); Leukocyte Esterase-Dipstick Negative /ul (Negative); Nitrite-Dipstick Negative (Negative); Occult Blood-Urine 25 /ul (Negative); Protein-Dipstick 30 mg/dl (Negative); Specific Gravity, Urine 1.025 (1.002-1.030); Urine Bilirubin Dipstick Negative (Negative); Urine Clarity Clear (Clear); Urine Urobilinogen Normal (Normal)
[2025-04-09 15:31] LABS: Ketone-Dipstick 150 mg/dl (Negative)
[2025-04-09 15:40] VITALS: BP 132/63; PULSE 83; RESP 16; O2SAT 98
--- NOTE | 2025-04-09 15:48 | HP.PCM.HOS_ITS ---
HPI - General General Date of Admission: 04/09/25 Date of Service: 04/09/25 Chief Complaint: Debility, failure to care for self, intractable back pain. HPI Narrative The patient is a 64 y/o F w/ PMHx: Former tobacco use, MARSHALL following w/ Dr. Perez, HTN, Diabetes mellitus type II, GERD, Obesity, SLE/psoriatic arthritis, Anxiety and Depression/Mood disorder, recent ED evaluation 04/06/2025 secondary to persistent intractable back pain for weeks following with pain management Dr. Pichardo with recent injections the Saturday previously however her back pain has persisted with poor oral intake and ongoing debilitating pain without ability to obtain an MRI secondary to inability to even perform physical therapy per review of records with inability to really safely care for herself at home secondary to severity of pain and debility, generalized weakness, inability to even get up off the toilet or get to the restroom appropriately with no specific saddle anesthesia and no concerning neurological type incontinence more so difficulty getting to the restroom in time to be able to go with at least a 20 pound weight loss also reporting mild difficulty with swallowing secondary to significant amount of postnasal sinus drainage. She denies any paresthesias or shooting pains down her leg. Most recent imaging noted 04/06/2025 with initially a plain film of the lumbar spine and a lumbar spinal CT which had noted multilevel disc disease space narrowing and generative changes with no evidence of any vertebral fractures. She notes that her pain several weeks previous to her injection with Dr. Pichardo was tentative 10 in severity, worse with any movement or activity attempts however now it is more of a dull aching continuous stability and she more so has the sensation that her back cannot even hold her up. Workup in the ED included T98, heart rate 90, BP 126/59, respiratory rate 18, 96% on room air with most recent repeat vitals heart rate 83, BP 132/63, respiratory rate 16, 98% on room air, CBC with WBC 8.0, he 1 12.7, platelet 107 without marked shift, coags with INR 1.3, PT 16, BMP with carbon oxide 16.8, anion gap 20, BUN/creatinine 15/0.70, GFR 96 otherwise not marked appearing, urinalysis with elevated specific gravity 1.025, protein 30, ketones 150, occult blood 25, negative nitrite, negative leukocyte esterase with further urinalysis labs pending upon request evaluation of patient. In the ED patient ministered maintenance IV fluids. [facility] Medical History Chronic anemia History of GI bleed Psoriatic arthritis SLE (systemic lupus erythematosus related syndrome) Thrombocytopenia Obesity MARSHALL (nonalcoholic steatohepatitis) Hypertension GERD (gastroesophageal reflux disease) Bipolar disorder Diabetes mellitus, type II Home Medications ?Medication ?Instructions ?Recorded ?Last Taken ?Type mirabegron 50 mg tablet,extended 50 mg PO DAILY bladde r 08/24/24 04/08/25 History release 24 hr olanzapine 7.5 mg tablet 7.5 mg PO QHS mental health 08/24/24 04/08/25 History omeprazole 40 mg capsule,delayed 40 mg PO BID 08/24/24 04/08/25 History release semaglutide 2 mg/dose (8 mg/3 mL) 2 mg subcut QWEEK di abetes 08/24/24 04/04/25 History subcutaneous pen injector (Ozempic) sertraline 100 mg tablet [facility] 04/08/25 History ondansetron HCl 4 mg tablet 4 mg PO Q6H PRN nausea and vomiting 09/15/24 Unknown History carvedilol 3.125 mg tablet 3.125 mg PO BID slow blood flow 02/04/25 04/08/25 History methocarbamol 500 mg tablet 500 mg PO TID PRN pain/spa sms #30 02/04/25 Unknown Rx tabs cephalexin 500 mg capsule 500 mg PO BID #14 caps 04/0604/08/25 Rx glipizide 2.5 mg tablet, extended 2.5 mg PO DAILY 03/2504/08/25 History release 24 hr glipizide 5 mg tablet, extended 5 mg PO DAILY 04/09/25 04/08/25 History release 24 hr Allergy/AdvReac Type Severity Reaction Status Date / Time No Known Allergies Allergy Verified 04/09/25 14:05 Family History Father Lung cancer Mother Diabetes Grandmother No problems noted. Grandfather No problems noted. Surgical History S/P tubal ligation S/P foot surgery S/P total hysterectomy S/P cholecystectomy Status post hip surgery Social History (Updated 04/09/25 @ 16:[address] Regine Silva MD) household members: spouse Smoking Status: Former smoker alcohol intake: never substance use type: does not use ROS ROS Narrative Admission Review of Systems: CONSTITUTIONAL: No weight loss, fever, chills, + weakness or fatigue. HEENT: Eyes: No visual loss, blurred vision, double vision or yellow sclerae. Ears, Nose, Throat: No hearing loss, sneezing, congestion, runny nose or sore throat. SKIN: No rash or itching, lesions, wounds except occasional abrasion, stage ecchymoses, also underlying psoriatic arthritis. CARDIOVASCULAR: No chest pain, chest pressure or chest discomfort, palpitations, edema, orthopnea, syncopal events. RESPIRATORY: No shortness of breath, cough or sputum, wheezing, hemoptysis. GASTROINTESTINAL: + anorexia/ significant lack of appetite, mild dysphagia complaint. No nausea, vomiting or diarrhea, abdominal pain, melena, BRBPR. GENITOURINARY: No dysuria, frequency, urgency or retention. NEUROLOGICAL: + Significant acute on chronic lumbar spine pain with debility, lower extremity weakness. No headache, dizziness, syncope, paralysis, ataxia, numbness or tingling in the extremities, change in bowel or bladder control, seizure. MUSCULOSKELETAL: + muscle, back pain, joint pain or stiffness. HEMATOLOGIC: + Chronic anemia, easy bleeding/bruising. LYMPHATICS: No enlarged nodes. + Splenomegaly. PSYCHIATRIC: + History of anxiety depression/mood disorder. ENDOCRINOLOGIC: No reports of sweating, cold or heat intolerance. No polyuria or polydipsia. ALLERGIES: + Allergic rhinitis. Vital Signs Vital Signs Vital Signs: 04/09/25 14:05 04/09/25 14:08 04/09/25 15:40 Temperature 98 F Temperature Source Oral Pulse Rate 90 83 Respiratory Rate 18 16 Respiratory Effort Normal Non-Labored Respiratory Pattern Normal Blood Pressure 126/59 H 132/63 H Blood Pressure Mean 81 86 Pulse Ox 96 98 Oxygen Delivery Method Room Air Room Air Weight Weight: 207 lb 10.807 oz Body Mass Index (BMI) 35.6 Physical Exam Narrative Physical Examination: General: Awake, alert, oriented x 3 and cooperative, seated upright in bed, extremely flat affect, notes feeling weak and debilitated, currently denying any lumbar back pain but not moving. Skin: Normal color, normal turgor, no icterus, no cyanosis except occasional stage ecchymoses, abrasion. HEENT: AT/NC, EOMI, PERRLA, mildly dry MM, no carotid bruits or JVD noted. Lungs: Mildly diminished, greater bases, poor effort, no rales, ronchi or wheezing. Heart: Regular rate and rhythm; no gallop, rub audible. Abdomen: Soft, obese, NTTP, distant BS, difficult to discern to distention or HSM given habitus however it is documented previously Extremities: No cyanosis, no clubbing, no significant distal edema noted. Neurological: Patient awake, alert, oriented as noted, cognitive function intact; pupils equally reactive to light and accommodation, cranial nerves grossly normal, moving all 4 extremities however limited given discomfort especially with attempted straight leg raise, no specific focal deficits, strength severely globally decreased secondary to acute presentation complaints, notable discomfort to paraspinous muscle palpation. Psychiatric: Affect appears flat, fatigued, do suspect underlying depression, does have underlying anxiety depression/mood disorder. Results Lab / Micro Data 04/09/25 14:25 04/09/25 14:25 Labs: Laboratory Results - last 24 hr 04/09/25 14:25: WBC 8.0, RBC 4.40, Hgb 12.7, Hct 37.1, MCV 84.3, MCH 28.9, MCHC 34.2, RDW Std Deviation 49.5 H, RDW Coeff of [place]acho 16.5 H, Plt Count 107 L, MPV 9.4, Immature Gran % (Auto) 0.900, Neut % (Auto) 73.4 H, Lymph % (Auto) 17.9 L, [place] % (Auto) 7.0, Eos % (Auto) 0.5, Baso % (Auto) 0.3, Absolute Neuts (auto) 5.9, Absolute Lymphs (auto) 1.43, Nucleated RBC % 0, PT 16.0 H, INR 1.3, Sodium 136, Potassium 3.9, Chloride 99, Carbon Dioxide 16.8 L, Anion Gap 20 H, BUN 15, Creatinine 0.70, Estim Creat Clear Calc 78.03, Est GFR (MDRD) Non-Af 96, B UN/Creatinine Ratio 20.9 H, Glucose 87, Calcium 9.7 04/09/25 14:50: Urine Color Yellow, Urine Clarity Clear, Urine pH 6.0, Ur Specific [place] 1.025, Urine Protein 30 H, Urine Glucose (UA) Normal, Urine Ketones 150 A*, Urine Occult Blood 25 H, Urine Nitrite Negative, Urine Bilirubin Negative, Urine Urobilinogen Normal, Ur Leukocyte Esterase Negative Assessment & Plan Assessment/Plan (1) Acute lumbar back pain: (2) Weakness of both lower extremities: PLAN: Plan The patient is a 64 y/o F w/ PMHx: Former tobacco use, MARSHALL following w/ Dr. Perez, HTN, Diabetes mellitus type II, GERD, Obesity, SLE/psoriatic arthritis, Anxiety and Depression/Mood disorder, recent ED evaluation 04/06/2025 secondary to persistent intractable back pain for weeks following with pain management Dr. Pichardo with recent injections the Saturday previously however her back pain has persisted with poor oral intake and ongoing debilitating pain without ability to obtain an MRI secondary to inability to even perform physical therapy per review of records with inability to really safely care for herself at home secondary to severity of pain and debility, generalized weakness, inability to even get up off the toilet or get to the restroom appropriately with no specific saddle anesthesia and no concerning neurological type incontinence more so difficulty getting to the restroom in time to be able to go with at least a 20 pound weight loss also reporting mild difficulty with swallowing secondary to significant amount of postnasal sinus drainage. #1. Adult FTT, Debility secondary to Acute on Chronic Intractable Back Pain: Will admit to [facility], will obtain MRI of the lumbar spine, will maintain on fall precautions, frequent positioning, initiate IV toradol low-dose x 5 doses given underlying MARSHALL, lidocaine patches, tizanidine low-dose x 1 now and then as needed following, medrol dose pack, po/IV narcotic pain regimen, anti-emetics, bowel regimen. Will consult PT and OT for evaluation as well as Case management for discharge planning. Pending MRI results and is not clinically improving may need to consider Orth[facility] involvement. #2. Recent diagnosis E. coli urinary tract infection: Urine culture from 04/06/2025 with 80-100,000 E. coli discharged on Keflex which from review of sensitivities is appropriate, will continue to completion. #3. Dysphagia, unclear specific etiology: Patient reporting difficulty with swallowing, possibly because of recent increased significant secretions especially with heavy pollen counts recently, will maintain on PPI, will request speech therapy evaluation be cautious and in the interim will alter diet. #4. Diabetes mellitus type II: Hold oral home regimen, ADA diet, accu checks w/ ISS. #5. Hypertension: Continue home regimen including Coreg with hold parameters as needed, PRN hydralazine. #6. Anxiety and depression/mood disorder: Will continue patient on psychiatric regimen including olanzapine, sertraline home regimen, encourage continued outpatient follow-up as previously arranged. #7. Obesity: Weight loss and lifestyle changes encouraged. #8. Suspected MARSHALL/AIH chronic hepatitis with portal hypertension, chronic thrombocytopenia: Patient following w/ Dr. Perez, most recent visit noted 12/18/2024, right upper quadrant sonogram including spleen with modified megaly with [place] steatosis, fatty infiltration with no acute abnormality, splenomegaly 21 cm in size, suspicious varices at the splenic hilum, prior CT abdomen 04/2023 with no obvious nodular appearance of liver but enlarged, noted plan for biochemical workup for suspected chronic liver disease and cirrhosis, encourage continued outpatient follow-up as previously arranged. #9. GERD with history of GI bleed: Will continue patient on PPI, for most recent GI note 12/18/2024 patient has portal hypertension as well as possibly varices.. #10. SLE, psoriatic arthritis: Per record MATY and double-stranded DNA positive in the past 2017 previously on Biologics however discontinued secondary to cost, encouraged continued outpatient follow-up with rheumatology as previously arranged. #11. Former drug use: Encourage continued tobacco cessation. #12. DVT prophylaxis: Lovenox cautiously given chronic thrombocytopenia with #8. #13. CODE status: Patient does not have healthcare power of deputy attorney general or living will in place but she would want her daughter Angela to be her medical decision- maker if necessary. Discussed CODE status at length including difference between FULL code, DNR-CCA and DNR-CC status. Following discussions about the differences in these status, requested Full Code status. Advanced Care Planning Face to Face Time: 16 minutes. Charges/Coding Visit Charges Inpatient E&M: 42156 Init Hosp L2 Procedures Hospitalists Procedures: 54088 Advncd Care Plan 30 Min
[2025-04-09 16:00] VITALS: BP 134/67; PULSE 85; RESP 16; TEMP 37.2; O2SAT 97
[2025-04-09 16:17] LABS: Red Blood Cells-Urine 0-5 SEEN /hpf (0-5); Squamous Epithelial Cells - UA 0-5 SEEN /hpf (5-10); White Blood Cells 0-5 SEEN /hpf (0-5)
[2025-04-09 17:30] VITALS: BP 104/36; PULSE 84; RESP 15; TEMP 37.3; O2SAT 96; BMI 35.6
--- NOTE | 2025-04-09 17:47 | MRI_ITS ---
PROCEDURE: SPINE LUMBAR (ROUTINE) 04/09/2025 REASON FOR EXAM: INTRACTABLE LUMBAR SPINE PAIN, LE WEAKNESS TECHNIQUE: Multiplanar and multisequence images were obtained without IV contrast administration. COMPARISON: CT lumbar spine 04/06/2025 FINDINGS: Vertebrae: Vertebral body heights and disc spaces are maintained. No suspicious marrow replacement process. Alignment: Lumbar lordosis is maintained. Conus Medullaris: The conus terminates at L1, and is of normal caliber and morphology. Cauda equina nerve roots are within normal limits. L1-2: Small circumferential disc bulge and mild facet degenerative changes with flattening of the ventral thecal sac. No significant canal stenosis or neural foraminal narrowing. L2-3: Small disc bulge and facet degenerative changes. Canal and neural foramina are patent. L3-4: Small circumferential disc bulge, mild ligamentum flavum hypertrophy and facet degenerative changes with mild canal stenosis. Neural foramina are patent. L4-5: Circumferential disc bulge, ligamentum flavum hypertrophy and facet degenerative changes with moderate canal stenosis. Mild bilateral subarticular recess narrowing. Mild bilateral neural foraminal narrowing. L5-S1: Circumferential disc bulge, ligamentum flavum hypertrophy and facet degenerative changes with mild canal stenosis. Moderate-severe bilateral neural foraminal narrowing. Sacrum: Unremarkable. MRI/Spine Lumbar (Routine) IMPRESSION: Degenerative changes of the lumbar spine, most prominent at L4-L5 and L5-S1. No acute fracture or traumatic malalignment. Reading Location: [facility]
[2025-04-09] MEDS: LORazepam 0.5 MG Tablet PO (18:27)
--- NOTE | 2025-04-09 18:37 | NURSING ---
spoke with Melanie in MRI re:in addition to questionniare pt states she has recently had a colon clip placed by dr baron in this facility
[2025-04-09] MEDS: 0.9% Saline Lock 10 ML Syringe IV (20:19)
[2025-04-09] MEDS: 0.9% Normal Saline (1000mL) 1,000 ML 100 ML IV (20:19)
[2025-04-09 20:20] VITALS: BP 114/57; PULSE 88; RESP 16; TEMP 36.6; O2SAT 98
[2025-04-09] MEDS: Lidocaine 5% Patch 2 PATCH TOPICAL (20:20)
[2025-04-09] MEDS: oxyCODONE 5 MG Tablet PO (20:21)
[2025-04-09] MEDS: tiZANidine HCl 2 MG Tablet PO (20:21)
[2025-04-09] MEDS: MethylPREDNISolone DosePak 4 MG BOX PO (20:22)
[2025-04-09] MEDS: Menthol/Lanolin/Calamine/Znox 113 GM Tube 1 APPLIC TOPICAL (20:22)
[2025-04-09] MEDS: MELATONIN 3 MG TABLET PO (20:22)
[2025-04-09] MEDS: Pantoprazole Sodium 40 MG Tablet PO (20:22)
[2025-04-09] MEDS: Cephalexin 500 MG Capsule PO (20:23)
[2025-04-09] MEDS: Carvedilol 3.125 MG TABLET PO (20:24)
[2025-04-09] MEDS: OLANZapine 2.5 MG Tablet 7.5 MG PO (20:24)
--- NOTE | 2025-04-09 20:51 | CASEMGMT ---
Care Management Face to Face with patient for initial transition planning/care coordination assessment in the ED.? This freelance copywriter introduced self and role at [facility]. Patient alert and oriented. Patient willing to participate in assessment and is able to answer all questions appropriately.? Care providers, pharmacy, and demographics verified. Admitting Diagnosis: Acute back pain Other diagnosis history: ?abnormal colonoscopy, psoriasis, Type 2 diabetes, GERD PCP: Rick Specialists: ?Friend, Anitha, Endocrinology Preferred Pharmacy: [facility] in [place] Insurance: [employer] Prescription Benefit: yes Living Will/HPOA: ?Does not have, interested in completing while here LNOK: ?Daughter Living Arrangements: ?patient lives with in 2 story home, lives on first floor.? At this time, has been unable to complete ADLs and she is unable to walk due to pain Transportation: drives DME: ?toilet seat, shower chair, rollator HHC: [facility] SNF/Rehab: ?none Community Resources: none Behavioral Health History: bipolar Patient goals: Patient goals are uncertain at this time. Disposition Plan: admission to acute; RN CM/SW to follow for discharge planning needs that may arise. Jodi Steven, FUEL EFFICIENT AUTOMOBILE DESIGNER, PERSONNEL RECORDS CLERK
[2025-04-09 22:18] LABS: Bedside Glucose 89 mg/dL (74-106)
[2025-04-09 23:28] VITALS: BMI 35.5
[2025-04-10] MEDS: Acetaminophen 325 MG Tablet 650 MG PO (05:58)
[2025-04-10 06:04] VITALS: BP 112/60; PULSE 84; RESP 16; TEMP 36.6; O2SAT 94
[2025-04-10 06:09] LABS: Absolute Lymphocyte Count 0.76 X10^3/uL (0.83-4.51); Absolute Neutrophil Count 3.8 X10^3/uL (2.0-7.7); Basophil# 0.01 X10^3/uL; Basophil% 0.2 % (0-1); Hematocrit 33.8 % (37-47); Hemoglobin 11.5 g/dL (12.0-15.0); Lymphocyte # 0.76 X10^3/ul (0.83-4.51); Lymphocyte % 15.7 % (19-41); Mean Corpuscular Hgb 28.7 pg (27.0-32.0); Mean Corpuscular Volume 84.3 fL (81-99); Mean Platelet Vol. 10.3 fl (6.2-12.0); Monocyte% 4.1 % (0-10); NRBC Flagged by Analyzer 0 % (0-5); Neutrophil # 3.82 X10^3/uL (2.7-7.7); Neutrophil % 79.2 % (47-70); POSITIVE COUNT YES; Platelet Count 80 K/mm3 (150-450); RBC Distribution Width SD 48.9 fl (35.1-43.9); Red Blood Count 4.01 M/mm3 (4.2-5.4); White Blood Count 4.8 K/mm3 (4.4-11.0)
[2025-04-10] MEDS: Nystatin Powder 15gm Bottle 1 APPLIC TOPICAL ×2 (06:11→11:09)
[2025-04-10 06:31] LABS: Differential Indicated SCAN CRITERIA MET
[2025-04-10 06:33] LABS: Bedside Glucose 150 mg/dL (74-106)
[2025-04-10 06:36] LABS: ALB/GLOB Ratio 1.5 RATIO (0.9-2.4); AST(SGOT) 94 U/L (<=31); Alanine Aminotransfer ALT/SGPT 43 U/L (<=34); Alkaline Phosphatase 143 U/L (35-104); Anion Gap 17 (5-15); BUN 13 mg/dL (4-19); BUN/Creat Ratio 20.6 RATIO (10-20); Calcium,Total 9.4 mg/dL (7.6-11.0); Carbon Dioxide 16.5 mmol/L (21.0-32.0); Chloride 105 mmol/L (98-108); Creatinine, Serum 0.61 mg/dL (0.70-1.20); EST Glomerular Filtration Rate 99 (>60); Estimated Creatinine Clearance 77.94 ml/min (50-250); Globulin 2.7 g/dL (2.2-4.2); Glucose 146 mg/dL (70-99); Potassium 4.4 mmol/L (3.3-5.1); Protein, Total 6.7 g/dL (5.9-8.4); Sodium Level 138 mmol/L (133-145); Total Bilirubin 0.41 mg/dL (0.00-1.30)
[2025-04-10 07:14] VITALS: O2SAT 93
[2025-04-10 08:30] LABS: Platelet Estimate MOD DEC (ADEQ)
[2025-04-10 08:39] VITALS: BP 106/55; PULSE 80; RESP 16; TEMP 36.9; O2SAT 95
[2025-04-10] MEDS: MethylPREDNISolone DosePak 4 MG BOX PO ×4 (08:49→20:40)
[2025-04-10] MEDS: Cephalexin 500 MG Capsule PO ×2 (11:09→20:42)
[2025-04-10] MEDS: Vibegron 75 MG TABLET PO (11:09)
[2025-04-10] MEDS: Menthol/Lanolin/Calamine/Znox 113 GM Tube 1 APPLIC TOPICAL (11:09)
[2025-04-10] MEDS: Pantoprazole Sodium 40 MG Tablet PO ×2 (11:10→20:42)
[2025-04-10] MEDS: Sertraline 100 MG Tablet 150 MG PO (11:10)
[2025-04-10 12:01] LABS: Bedside Glucose 114 mg/dL (74-106)
[2025-04-10] MEDS: 0.9% Saline Lock 10 ML Syringe IV (12:50)
[2025-04-10] MEDS: Ondansetron 4 MG/2 ML Vial IV (12:50)
--- NOTE | 2025-04-10 13:05 | CASEMGMT ---
ARMAND CM into pt room, pt lying in bed with bjwick in. Pt states she has not been oob since here. Therapy has not worked with her yet. Pt reports her goal is to go home with her and her dog. Pt was in [facility] approx 6 mos ago when she had a brain bleed. Pt states she hopes to go home with the [facility] that is set up already. She is aware that if therapy is well and she can dc home with [facility], they will be contacted. If pt does not do as well as expected, she will remain in the hospital until Saturday and will discuss next steps. Pt agreeable to this. TC to intake at [facility], made aware of the above, green sheet on chart.
--- NOTE | 2025-04-10 13:11 | PN_ITS ---
Subjective Subjective Patient seen and examined. She had no complaints. She had an uneventful night. Review of systems otherwise negative. Objective Data Objective Data Vital Signs: Vital Signs Temp Pulse Resp BP Pulse Ox O2 Del Method 98.4 F 80 16 106/55 L 95 Room Air 04/10/25 08:39 04/10/25 08:39 04/10/25 08:39 04/10/25 08:39 04/10/25 08:39 04/10/25 11:00 Oxygen Delivery Method Room Air Weight: 207 lb 3.752 oz Body Mass Index (BMI) 35.5 Intake & Output: Intake and Output for Last 24 Hours 04/08/25 04/09/25 04/10/25 23:59 23:59 23:59 Intake Total 1000 / 1000 980 / 980 Output Total 150 / 150 Balance 1000 / 1000 830 / 830 Lab / Micro Data 04/10/25 05:35 04/10/25 05:35 Labs: Laboratory Results - last 24 hr 04/09/25 14:25: WBC 8.0, RBC 4.40, Hgb 12.7, Hct 37.1, MCV 84.3, MCH 28.9, MCHC 34.2, RDW Std Deviation 49.5 H, RDW Coeff of [place] 16.5 H, Plt Count 107 L, MPV 9.4, Immature Gran % (Auto) 0.900, Neut % (Auto) 73.4 H, Lymph % (Auto) 17.9 L, [place] % (Auto) 7.0, Eos % (Auto) 0.5, Baso % (Auto) 0.3, Absolute Neuts (auto) 5.9, Absolute Lymphs (auto) 1.43, Nucleated RBC % 0, PT 16.0 H, INR 1.3, Sodium 136, Potassium 3.9, Chloride 99, Carbon Dioxide 16.8 L, Anion Gap 20 H, BUN 15, Creatinine 0.70, Estim Creat Clear Calc 78.03, Est GFR (MDRD) Non-Af 96, B UN/Creatinine Ratio 20.9 H, Glucose 87, Calcium 9.7 04/09/25 14:50: Urine Color Yellow, Urine Clarity Clear, Urine pH 6.0, Ur Specific [place] 1.025, Urine Protein 30 H, Urine Glucose (UA) Normal, Urine Ketones 150 A*, Urine Occult Blood 25 H, Urine Nitrite Negative, Urine Bilirubin Negative, Urine Urobilinogen Normal, Ur Leukocyte Esterase Negative, Urine RBC 0-5 SEEN, Urine WBC 0-5 SEEN, Ur Squamous Epith Cells 0-5 SEEN, Urine Bacteria 0 SEEN, Urine Mucus 0 SEEN 04/09/25 20:55: POC Glucose 89 04/10/25 05:35: WBC 4.8, RBC 4.01 L, Hgb 11.5 L, Hct 33.8 L, MCV 84.3, MCH 28.7, MCHC 34.0, RDW Std Deviation 48.9 H, RDW Coeff of [place] 16.0 H, Plt Count 80 L, MPV 10.3, Immature Gran % (Auto) 0.800, Neut % (Auto) 79.2 H, Lymph % (Auto) 15.7 L, [place] % (Auto) 4.1, Eos % (Auto) 0.0, Baso % (Auto) 0.2, Absolute Neuts (auto) 3.8, Absolute Lymphs (auto) 0.76 L, Nucleated RBC % 0, Platelet Estimate MOD DEC, Sodium 138, Potassium 4.4, Chloride 105, Carbon Dioxide 16.5 L, Anion Gap 17 H, BUN 13, Creatinine 0.61 L, Estim Creat Clear Calc 77.94, Est GFR (MDRD) Non-Af 99, BUN/Creatinine Ratio 20.6 H, Glucose 146 H, Calcium 9.4, Total Bilirubin 0.41, AST 94 H, ALT 43 H, Alkaline Phosphatase 143 H, Total Protein 6.7, Albumin 4.0, Globulin 2.7, Albumin/Globulin Ratio 1.5 04/10/25 05:57: POC Glucose 150 H 04/10/25 11:39: POC Glucose 114 H Radiography Diagnostic Testing: Radiology Impression Lumbar Spine MRI 04/09/25 17:47 IMPRESSION: Degenerative changes of the lumbar spine, most prominent at L4-L5 and L5-S1. No acute fracture or traumatic malalignment. Reading Location: [facility] Physical Exam Const alert, oriented x3 and no apparent distress Constitutional Narrative: frail HEENT normocephalic, head/scalp atraumatic, moist oral mucous membranes, oropharynx normal and gingiva normal Eyes PERRL and EOMs intact bilaterally Neck no lymphadenopathy and supple Lymph Lymphatic: no lymphadenopathy noted and no lymphedema noted Resp normal respiratory effort, normal air movement and clear to auscultation bilaterally Cardio regular rate, regular rhythm, S1 normal heart sound, S2 normal heart sound and no murmurs GI normal to inspection, nondistended, normoactive bowel sounds, soft to palpation, non-tender and non-distended GI Narrative: obese abdomen Extremity normal capillary refill, no clubbing, cyanosis or edema and no calf tenderness General Extremity: no tenderness to palpation of joints or extremities Skin General Skin Exam: no breakdown Neuro CN's II-XII intact bilaterally, no focal motor deficits and no sensory deficits noted Motor Exam: strength 5/5 throughout and general weakness Psych thought process normal and cooperative Appearance: appropriate Assessment & Plan Assessment/Plan (1) Weakness of both lower extremities: (2) Debility: PLAN: Plan #Debility with failure to thrive due to acute on chronic intractable back pain * Back pain has improved today. PT OT on board. * Lumbar spine MRI showed: Degenerative changes of the lumbar spine most prominent at L4-L5 and L5-S1 with no acute fracture or traumatic malalignment. * On IV Toradol as well as IV morphine and p.o. oxycodone as needed * PT OT on board. Fall precautions. #Type 2 diabetes mellitus: On insulin sliding scale. Accu-Cheks ACHS. Oral meds on hold # Hypertension: On Coreg. IV hydralazine as needed #Anxiety and depression: On olanzapine and sertraline #History of autoimmune hepatitis with portal hypertension and chronic thrombocytopenia: * Follow-up with gastroenterology on outpatient basis. #History of GERD: On PPI #History of SLE and psoriatic arthritis: Follow-up with rheumatology on outpatient basis. Was previously on disease-modifying RD's but this was stopped due to cost. DVT prophylaxis: DC Lovenox as platelets have dropped to around 80 today. SCDs. Charges/Coding Visit Charges Inpatient E&M: 79292 Subs Hosp L2
[2025-04-10 14:45] VITALS: BP 118/68; PULSE 81; RESP 18; TEMP 37; O2SAT 96
--- NOTE | 2025-04-10 14:53 | CASEMGMT ---
Social Work- SW met with pt to discuss discharge planning. Pt reports that she transferred from bed to chair with therapy, which is improvement from yesterday, but was unable to ambulate any further. Pt reports that she has not heard results of MRI. SW provided a list of SNF providers including quality and resource use data and consistent with the patient?s preferred geographic region, medical needs, and insurance network were provided from the [employer]. Pt will review list with family over the weekend and provide three selections if needed on Saturday. Pt requested to complete directives. SW completed HCPOA naming pt daughter, Leigha, as primary agent. SW placed a copy in the chart, as well as providing pt with a copy and the original. Pt reports no other needs at this time. DHARMESH remains available to follow. ISABELLE Payne
[2025-04-10 16:55] LABS: Bedside Glucose 132 mg/dL (74-106)
[2025-04-10 17:09] VITALS: BP 114/64; PULSE 85
[2025-04-10] MEDS: Carvedilol 3.125 MG TABLET PO (17:10)
[2025-04-10 20:24] VITALS: BP 114/52; PULSE 66; RESP 16; TEMP 36.7; O2SAT 95
[2025-04-10] MEDS: OLANZapine 2.5 MG Tablet 7.5 MG PO (20:42)
[2025-04-10 21:13] LABS: Bedside Glucose 124 mg/dL (74-106)
[2025-04-11 03:56] VITALS: BP 110/55; PULSE 67; RESP 16; TEMP 36.5; O2SAT 96
[2025-04-11 05:29] LABS: Absolute Lymphocyte Count 0.98 X10^3/uL (0.83-4.51); Absolute Neutrophil Count 3.3 X10^3/uL (2.0-7.7); Basophil# 0.01 X10^3/uL; Basophil% 0.2 % (0-1); Eosinophil# 0.01 X10^3/uL; Eosinophils% 0.2 % (0-5); Hematocrit 32.7 % (37-47); Hemoglobin 11.5 g/dL (12.0-15.0); Lymphocyte # 0.98 X10^3/ul (0.83-4.51); Lymphocyte % 21.4 % (19-41); Mean Corp Hgb Conc 35.2 g/dL (32-36); Mean Corpuscular Hgb 29.2 pg (27.0-32.0); Mean Platelet Vol. 9.5 fl (6.2-12.0); Monocyte% 6.5 % (0-10); NRBC Flagged by Analyzer 0 % (0-5); Neutrophil # 3.26 X10^3/uL (2.7-7.7); POSITIVE COUNT YES; Platelet Count 79 K/mm3 (150-450); RBC Distribution Width CV 15.9 % (11.6-14.6); RBC Distribution Width SD 47.8 fl (35.1-43.9); Red Blood Count 3.94 M/mm3 (4.2-5.4); White Blood Count 4.6 K/mm3 (4.4-11.0)
[2025-04-11] MEDS: oxyCODONE 5 MG Tablet PO (06:09)
[2025-04-11 06:14] LABS: Anion Gap 16 (5-15); BUN 12 mg/dL (4-19); BUN/Creat Ratio 18.4 RATIO (10-20); Calcium,Total 9.6 mg/dL (7.6-11.0); Chloride 104 mmol/L (98-108); Creatinine, Serum 0.63 mg/dL (0.70-1.20); EST Glomerular Filtration Rate 98 (>60); Estimated Creatinine Clearance 77.94 ml/min (50-250); Glucose 123 mg/dL (70-99); Potassium 3.7 mmol/L (3.3-5.1); Sodium Level 139 mmol/L (133-145)
[2025-04-11 06:29] LABS: Bedside Glucose 118 mg/dL (74-106)
[2025-04-11 07:22] VITALS: O2SAT 95
[2025-04-11 08:00] VITALS: BP 109/64; PULSE 80; RESP 15; TEMP 36.8; O2SAT 96
[2025-04-11] MEDS: Nystatin Powder 15gm Bottle 1 APPLIC TOPICAL ×2 (08:18→23:16)
[2025-04-11] MEDS: MethylPREDNISolone DosePak 4 MG BOX PO ×4 (08:18→23:15)
[2025-04-11] MEDS: Pantoprazole Sodium 40 MG Tablet PO ×2 (08:19→23:17)
[2025-04-11] MEDS: Sertraline 100 MG Tablet 150 MG PO (08:19)
[2025-04-11] MEDS: Cephalexin 500 MG Capsule PO ×2 (08:21→23:15)
[2025-04-11] MEDS: Menthol/Lanolin/Calamine/Znox 113 GM Tube 1 APPLIC TOPICAL ×4 (08:21→23:14)
[2025-04-11] MEDS: Vibegron 75 MG TABLET PO (08:21)
--- NOTE | 2025-04-11 09:55 | PN_ITS ---
Subjective Subjective Patient seen and examined. She has no active complaints. She had an uneventful night. Review of systems otherwise negative. She has remained hemodynamically stable. She has been deemed as needing placement. Objective Data Objective Data Vital Signs: Vital Signs Temp Pulse Resp BP Pulse Ox O2 Del Method 98.2 F 80 15 109/64 96 Room Air 04/11/25 08:00 04/11/25 08:00 04/11/25 08:00 04/11/25 08:00 04/11/25 08:00 04/11/25 08:00 Oxygen Delivery Method Room Air Weight: 207 lb 3.752 oz Body Mass Index (BMI) 35.5 Intake & Output: Intake and Output for Last 24 Hours 04/09/25 04/10/25 04/11/25 23:59 23:59 23:59 Intake Total 1000 / 1000 980 / 980 Output Total 750 / 750 400 / 400 Balance 1000 / 1000 230 / 230 -400 / -400 Medical Nutrition Assessment Dietitian: Malnutrition Criteria Met Start: 04/10/25 14:45 Freq: Status: Active Protocol: Document 04/10/25 14:45 RMA (Rec: 04/10/25 14:45 RMA [id number]) Nutrition Malnutrition Evidence of Yes Malnutrition Exists Malnutrition (severe Chronic ): Evidenced By Suboptimal Energy Intake (Severe),Weight Loss (Severe) Clinical Problem Chronic Disease or Condition Related Malnutrition Etiology Severe protein-calorie malnutrition in the context of chronic disease and debility related to inadequate oral intake and swallowing difficulty Signs/Symptoms as evidenced by ~13% unintentional weight loss in less than 6 months, PO meeting less than 75% estimated nutrition needs x 3 months and need for mechanically altered food Status Active Problem Recommendation Dietitian Will adjust therapeutic diet to 2000 calorie, Recommendations/ consistent carbohydrate with consistency/texture as per Changes PROJECT SPECIALIST. Will adjust ONS to 240mL chocolate glucerna shake w/ breakfast and dinner and vanilla magic cup w/ lunch tray. Will trend weights and liberalize diet as needed if unintentional weight loss continues. Lab / Micro Data 04/11/25 05:07 04/11/25 05:07 Labs: Laboratory Results - last 24 hr 04/10/25 11:39: POC Glucose 114 H 04/10/25 16:33: POC Glucose 132 H 04/10/25 20:34: POC Glucose 124 H 04/11/25 05:07: WBC 4.6, RBC 3.94 L, Hgb 11.5 L, Hct 32.7 L, MCV 83.0, MCH 29.2, MCHC 35.2, RDW Std Deviation 47.8 H, RDW Coeff of Tacho 15.9 H, Plt Count 79 L, MPV 9.5, Immature Gran % (Auto) 0.700, Neut % (Auto) 71.0 H, Lymph % (Auto) 21.4, [place] % (Auto) 6.5, Eos % (Auto) 0.2, Baso % (Auto) 0.2, Absolute Neuts (auto) 3.3, Absolute Lymphs (auto) 0.98, Nucleated RBC % 0, Sodium 139, Potassium 3.7, Chloride 104, Carbon Dioxide 19.0 L, Anion Gap 16 H, BUN 12, C reatinine 0.63 L, Estim Creat Clear Calc 77.94, Est GFR (MDRD) Non-Af 98, BUN/Creatinine Ratio 18.4, Glucose 123 H, Calcium 9.6 04/11/25 06:03: POC Glucose 118 H Physical Exam Const alert, oriented x3, no apparent distress and well nourished Constitutional Narrative: frail HEENT normocephalic, head/scalp atraumatic, moist oral mucous membranes, oropharynx normal and gingiva normal Eyes PERRL and EOMs intact bilaterally Neck no lymphadenopathy and supple Lymph Lymphatic: no lymphadenopathy noted and no lymphedema noted Resp normal respiratory effort, normal air movement and clear to auscultation bilaterally Cardio regular rate, regular rhythm, S1 normal heart sound, S2 normal heart sound and no murmurs GI normal to inspection, nondistended, normoactive bowel sounds, soft to palpation, non-tender and non-distended GI Narrative: obese abdomen Extremity normal capillary refill, no clubbing, cyanosis or edema and no calf tenderness General Extremity: no tenderness to palpation of joints or extremities Skin General Skin Exam: no breakdown Neuro CN's II-XII intact bilaterally, no focal motor deficits and no sensory deficits noted Motor Exam: strength 5/5 throughout and general weakness Psych thought process normal and cooperative Appearance: appropriate Assessment & Plan Assessment/Plan (1) Weakness of both lower extremities: (2) Debility: PLAN: Plan #Debility with failure to thrive due to acute on chronic intractable back pain * PT OT on board. * Lumbar spine MRI showed: Degenerative changes of the lumbar spine most prominent at L4-L5 and L5-S1 with no acute fracture or traumatic malalignment. * On IV Toradol as well as IV morphine and p.o. oxycodone as needed * PT OT on board. Fall precautions. #Type 2 diabetes mellitus: On insulin sliding scale. Accu-Cheks ACHS. Oral meds on hold # Hypertension: On Coreg. IV hydralazine as needed #Anxiety and depression: On olanzapine and sertraline #History of autoimmune hepatitis with portal hypertension and chronic thrombocytopenia: * Follow-up with gastroenterology on outpatient basis. #History of GERD: On PPI #Thrombocytopenia: * Platelets are down to 79 today. Were 80 yesterday. * This likely due to his history of autoimmune hepatitis and that thrombocytopenia is chronic. * will monitor * #Mild anion gap metabolic acidosis: * Bicarb is 19 and anion gap is 16. * Cr is 0.63. WIll monitor closely. Etiology is not clear as she does not have any kidney impairment, and is not having any nausea, vomiting or diarrhea. * She has also not been hypotensive, so lactic acidosis is less of a consideration. * #History of SLE and psoriatic arthritis: * Follow-up with rheumatology on outpatient basis. * Was previously on disease-modifying medications but this was stopped due to cost. DVT prophylaxis: DC Lovenox as platelets have dropped to around 80 today. SCDs. Disposition: Awaiting placement. Case management on board to help facilitate placement. Charges/Coding Visit Charges Inpatient E&M: 54710 Subs Hosp L2
[2025-04-11] MEDS: Insulin Lispro 100 UNIT/ML INSULN.PEN SC (11:56)
[2025-04-11 12:20] LABS: Bedside Glucose 177 mg/dL (74-106)
[2025-04-11 14:00] VITALS: BP 119/60; PULSE 87; RESP 16; TEMP 36.8; O2SAT 94
[2025-04-11 16:54] VITALS: BP 123/67; PULSE 81; RESP 15; TEMP 36.8; O2SAT 94
[2025-04-11] MEDS: Carvedilol 3.125 MG TABLET PO (16:55)
[2025-04-11 17:15] LABS: Bedside Glucose 126 mg/dL (74-106)
[2025-04-11 23:00] VITALS: BP 120/64; PULSE 96; RESP 16; TEMP 36.7; O2SAT 96
[2025-04-11] MEDS: OLANZapine 2.5 MG Tablet 7.5 MG PO (23:15)
[2025-04-11 23:40] LABS: Bedside Glucose 122 mg/dL (74-106)
[2025-04-12 05:00] VITALS: BP 111/66; PULSE 77; RESP 16; TEMP 36.6; O2SAT 95
[2025-04-12 05:07] VITALS: BMI 35.4
[2025-04-12 05:17] LABS: Absolute Neutrophil Count 2.3 X10^3/uL (2.0-7.7); Basophil# 0.01 X10^3/uL; Basophil% 0.3 % (0-1); Eosinophil# 0.02 X10^3/uL; Eosinophils% 0.5 % (0-5); Hemoglobin 11.5 g/dL (12.0-15.0); Lymphocyte % 29.6 % (19-41); Mean Corp Hgb Conc 34.8 g/dL (32-36); Mean Corpuscular Hgb 28.8 pg (27.0-32.0); Mean Corpuscular Volume 82.5 fL (81-99); Mean Platelet Vol. 10.5 fl (6.2-12.0); Monocyte# 0.29 X10^3/uL; Monocyte% 7.8 % (0-10); NRBC Flagged by Analyzer 0 % (0-5); Neutrophil # 2.27 X10^3/uL (2.7-7.7); POSITIVE COUNT YES; Platelet Count 64 K/mm3 (150-450); RBC Distribution Width CV 15.9 % (11.6-14.6); RBC Distribution Width SD 47.2 fl (35.1-43.9); White Blood Count 3.7 K/mm3 (4.4-11.0)
[2025-04-12 05:35] LABS: Anion Gap 15 (5-15); BUN 14 mg/dL (4-19); BUN/Creat Ratio 24.9 RATIO (10-20); Calcium,Total 9.6 mg/dL (7.6-11.0); Carbon Dioxide 22.5 mmol/L (21.0-32.0); Chloride 103 mmol/L (98-108); Creatinine, Serum 0.55 mg/dL (0.70-1.20); EST Glomerular Filtration Rate 101 (>60); Estimated Creatinine Clearance 77.94 ml/min (50-250); Glucose 126 mg/dL (70-99); Potassium 3.3 mmol/L (3.3-5.1); Sodium Level 140 mmol/L (133-145)
[2025-04-12 06:59] LABS: Bedside Glucose 121 mg/dL (74-106)
[2025-04-12 07:24] VITALS: BP 107/57; PULSE 80; RESP 16; TEMP 36.8; O2SAT 94
[2025-04-12] MEDS: Carvedilol 3.125 MG TABLET PO (07:40)
[2025-04-12] MEDS: MethylPREDNISolone DosePak 4 MG BOX PO ×2 (07:40→12:28)
[2025-04-12] MEDS: Menthol/Lanolin/Calamine/Znox 113 GM Tube 1 APPLIC TOPICAL ×2 (09:37→15:35)
[2025-04-12] MEDS: Sertraline 100 MG Tablet 150 MG PO (09:37)
[2025-04-12] MEDS: Nystatin Powder 15gm Bottle 1 APPLIC TOPICAL (09:38)
[2025-04-12] MEDS: Pantoprazole Sodium 40 MG Tablet PO (09:38)
[2025-04-12] MEDS: Cephalexin 500 MG Capsule PO (09:39)
[2025-04-12] MEDS: Vibegron 75 MG TABLET PO (09:39)
--- NOTE | 2025-04-12 11:12 | CASEMGMT ---
Addendum entered by Maureen Lewis 04/12/25 12:02: SW received notice from hospitalist that pt would now like to discharge home with HHC. SW verified and updated TCU admissions to disregard referral. RNTAYLOR updated to follow for HHC. ISABELLE Payne Original Note: Social Work- SW met with pt to discuss discharge planning. SW listened to pt concerns and offered support via active and empathetic listening. Pt reports that she would like to go to TCU at discharge to build strength so that she can assist her with care. Pt reports spouse is 13 years older (78) and has been providing a significant amount of care for pt at home. Pt reports she uses bedside commode at home, but has been incontinent at times, which creates extra work for spouse. Pt reports that spouse works during the day and comes home to do household tasks and assist in care for pt; pt reports she would like to regain the ability to do more for herself to relieve some of the work from pt spouse. Pt reports that if TCU cannot accept, then she would like to have HHC at home. DHARMESH completed referral to TCU. SW remains available to follow. ISABELLE Payne
[2025-04-12 11:54] VITALS: O2SAT 93
[2025-04-12 11:56] LABS: Bedside Glucose 159 mg/dL (74-106)
--- NOTE | 2025-04-12 11:59 | CASEMGMT ---
Addendum entered by Natividad Chandler 04/12/25 13:55: Received confirmation from Karen at [facility] that they can accept pt for SOC on Saturday. Pt aware. Original Note: ARMAND VAZQUEZ notified by hospitalist that pt would like to return home with [facility]. ARMAND VAZQUEZ into pt room, pt sitting up in chair. Pt feels she is safe to return home. She would like [facility] who was supposed to have seen her at her home today. TC to Karen at [facility], she states this will be a new referral. She will review and make ARMAND VAZQUEZ aware if able to accept. Pt verbalizes understanding of this.
[2025-04-12] MEDS: Insulin Lispro 100 UNIT/ML INSULN.PEN SC (12:27)
[2025-04-12] MEDS: Fluticasone 0.05% 1 SPRAY NASAL.SRY 2 SPRAY NASAL (12:32)
[2025-04-12] MEDS: Loratadine 10 MG Tablet PO (12:34)
--- NOTE | 2025-04-12 13:22 | PCM.DC.SUM ---
Providers Date of Admission: 04/09/25 Date of Discharge: 04/12/25 Primary Care Physician: Dr. Yandel Cabrera MD Reason For Visit: ADULT FTT, INTRACTABLE BACK PAIN Diagnosis Discharge Diagnosis (1) Weakness of both lower extremities: Status: Acute Code(s): R29.898 - Other symptoms and signs involving the musculoskeletal system (2) Debility: Status: Acute Code(s): R53.81 - Other malaise Medications at Discharge Home Medications mirabegron 50 mg tablet,extended release 24 hr 50 mg PO DAILY bladder 08/24/24 olanzapine 7.5 mg tablet 7.5 mg PO QHS mental health 08/24/24 omeprazole 40 mg capsule,delayed release 40 mg PO BID 08/24/24 semaglutide 2 mg/dose (8 mg/3 mL) subcutaneous pen injector (Ozempic) 2 mg subcut QWEEK diabetes 08/24/24 sertraline 100 mg tablet 150 mg PO DAILY mental health 08/24/24 ondansetron HCl 4 mg tablet 4 mg PO Q6H PRN nausea and vomiting 09/15/24 carvedilol 3.125 mg tablet 3.125 mg PO BID slow blood flow 02/04/25 methocarbamol 500 mg tablet 500 mg PO TID PRN pain/spasms #30 tabs 02/04/25 cephalexin 500 mg capsule 500 mg PO BID #14 caps 04/06/25 glipizide 2.5 mg tablet, extended release 24 hr 2.5 mg PO DAILY 04/09/25 glipizide 5 mg tablet, extended release 24 hr 5 mg PO DAILY 04/09/25 acetaminophen 500 mg tablet 1,000 mg (2 x 500 mg) PO Q8 #0 tabs 04/12/25 fluticasone propionate 50 mcg/actuation nasal spray,suspension 2 spray NASAL DAILY #16 grams 04/12/25 lidocaine 5 % topical patch 2 patch topical DAILY #15 ea 04/12/25 loratadine 10 mg tablet (Allergy Relief (loratadine)) 10 mg PO DAILY #30 tabs 04/12/25 Hospital Course Operations None Procedures - (MRI lumbar spine) Summary of Care Provided Minutes Spent on Discharge: 39 Hospital Course: Patient is a 64-year-old white female who presented to emergency department at [facility] on 04/09/2025 secondary to ongoing low back pain and weight loss due to change in taste. Patient has been then getting treated for acute on chronic low back pain and had an injection by Dr. Camacho about 10 days prior to the presentation. He told her to come the emergency department if she had worsening back pain and she initially visited the ED on 04/06/2025. She states she was denied an outpatient MRI x 2 as she did not do the 6 weeks of physical therapy that they recommended. She reported on that visit that she was having such severe back pain it was hard for her to get up off the toilet but had no loss of bowel bladder. She was treated at that visit and a CT of her lumbar spine was performed which did show DJD and multiple level changes but no evidence of acute fracture and spinal stenosis and her symptoms improved with the pain medicine she was given and she was discharged home. She was also found to have an abnormal UA and given Keflex for UTI at that time. Her back pain was ongoing but she was more concerned about her weight loss so she represented on 04/09/2025. Patient reported that she was seen as an outpatient and it was felt that she probably had some postnasal drip which had changed her taste which had contributed to her change in taste and intolerance to different textures but she never started the Claritin that was recommended as she was not able to get the sore on my any. She was admitted in the hospital for back pain and for her weight loss with decreased oral intake. She was not markedly dehydrated on presentation. She was seen by both speech therapy and the dietitian during her hospital course. She was diagnosed with severe mild through nutrition by the dietitian and placed on supplements. Speech therapy did not find any oropharyngeal dysphagia or posterior pharyngeal dysphagia and she was maintained on a regular diet. MRI of her lumbar spine was performed and showed degenerative changes most prominent at L4-L5 and L5-S1 with evidence of moderate canal stenosis and bilateral neuroforaminal narrowing that was moderate to severe. I was able to reevaluate on 04/12/2025 and given the concern for postnasal drip causing her weight loss and decreased p.o. intake tolerance we did start her on Claritin and nasal spray. Both of which she was discharged on. Of note, she is also on Ozempic which may be causing some weight loss as well. I did discuss with her the plan to start the Claritin and the nasal spray to be used regularly for the next week. She already has follow-up with her primary care physician if there is not much change at that point when she follows up they can discuss it further and consider holding the Ozempic versus further workup in another form. She also has a GI follow-up at that time. She does have liver disease and follows in [place] with the transplant team. She was evaluated by physical Occupational Therapy and they felt she would be safe to go home with some supervision. She feels that she is at her baseline with regards to functional status and would like to continue ongoing home health. This was arranged for her and she will have follow-up with home health in the next 24 to 48 hours after discharge. Prescriptions for the Claritin and the nasal spray were sent to local pharmacy. She was also placed on the lidocaine patch at the time of discharge. She was able be discharged with home health care in stable condition on 04/12/2025. Discharge diagnoses: Acute on chronic low back pain secondary to DDD/DJD Lumbar spinal stenosis Severe malnutrition Weight loss Postnasal drip/allergies Chronic pancytopenia secondary to liver disease Liver cirrhosis History of GI bleeds History of esophageal varices GERD Essential hypertension DM-2 Bipolar disorder Essential hypertension History of SLE Obesity History of tobacco abuse Physical Exam Const alert, oriented x3, no apparent distress and no limitations; Negative for average body habitus Constitutional Narrative: Upper middle-aged, white female, obese, sitting up in a chair at the bedside, currently appears comfortable but frustrated, nontoxic General Appearance: cooperative, comfortable, well kempt and well developed Exam Limitations: no limitations Nutritional Appearance: obese HEENT normocephalic, head/scalp atraumatic, hearing grossly normal bilaterally and moist oral mucous membranes HEENT Narrative: Mallampati 3, no thrush Neck supple Neck Narrative: trachea midline Resp normal respiratory effort, no retractions, no use of accessory muscles and clear to auscultation bilaterally Auscultation: Negative for rales, rhonchi or wheezes Cardio regular rate, regular rhythm, S1 normal heart sound, S2 normal heart sound, no murmurs, no rub, no gallops and no clicks GI normal to inspection, nondistended, normoactive bowel sounds, soft to palpation and non-tender GI Narrative: no epigastric tenderness Extremity no clubbing, cyanosis or edema Extremity Narrative: 2+ pedal and radial pulses Neuro oriented x3, moves all extremities and no focal motor deficits Speech: speech normal Psych affect normal Psych Narrative: frustrated but pleasant Medical Records Data Medical Nutrition Assessment Dietitian: Malnutrition Criteria Met Start: 04/10/25 14:45 Freq: Status: Active Protocol: Document 04/12/25 12:37 SLA (Rec: 04/12/25 12:37 SLA [id number]) Nutrition Malnutrition Evidence of Yes Malnutrition Exists Malnutrition (severe Chronic ): Evidenced By Suboptimal Energy Intake (Severe),Weight Loss (Severe) Clinical Problem Chronic Disease or Condition Related Malnutrition Etiology Severe protein-calorie malnutrition in the context of chronic disease and debility related to inadequate oral intake and swallowing difficulty Signs/Symptoms as evidenced by ~13% unintentional weight loss in less than 6 months, PO meeting less than 75% estimated nutrition needs x 3 months and need for mechanically altered food Status Active Problem Recommendation Dietitian Continue 2000 jay/ Consistent carbohydrate with Recommendations/ consistency/texture as per WOVEN LABEL DESIGNER. Changes Will adjust to ONS to 240mL chocolate glucerna shake w/ breakfast and dinner and vanilla glucerna shake w/ lunch tray. Will trend weights and liberalize diet as needed if unintentional weight loss continues. Weight / BMI Weight Weight: 94 kg Body Mass Index (BMI) 35.4 ABG / Lab / Microbiology Data 04/12/25 04:34 04/12/25 04:34 Laboratory: Laboratory Results - last 24 hr 04/11/25 16:48: POC Glucose 126 H 04/11/25 23:11: POC Glucose 122 H 04/12/25 04:34: WBC 3.7 L, RBC 4.00 L, Hgb 11.5 L, Hct 33.0 L, MCV 82.5, MCH 28.8, MCHC 34.8, RDW Std Deviation 47.2 H, RDW Coeff of Tacho 15.9 H, Plt Count 64 L, MPV 10.5, Immature Gran % (Auto) 0.800, Neut % (Auto) 61.0, Lymph % (Auto) 29.6, [place] % (Auto) 7.8, Eos % (Auto) 0.5, Baso % (Auto) 0.3, Absolute Neuts (auto) 2.3, Absolute Lymphs (auto) 1.10, Nucleated RBC % 0, Sodium 140, Potassium 3.3, Chloride 103, Carbon Dioxide 22.5, Anion Gap 15, BUN 14, Creatinine 0.55 L, Estim Creat Clear Calc 77.94, Est GFR (MDRD) Non-Af 101, BUN/Creatinine Ratio 24.9 H, Glucose 126 H, Calcium 9.6 04/12/25 06:41: POC Glucose 121 H 04/12/25 11:38: POC Glucose 159 H D/C Instructions Discharge Diet: 1800 Calorie Control Diet Discharge Activity: Return to Normal Activity and Use Walker DC O2, CPAP, BIPAP Needs Home O2 Discharge instructions: No Meaningful Use Info Meaningful Use Meaningful Use Diagnoses (Choose all that apply): None applicable Ischemic Stroke Statin Dosing Therapy Reference: STATIN DOSE THERAPY REFERENCE: * Patients > 75 years receive moderate or high dose statin therapy. * Patients 75 years or YOUNGER should receive HIGH intensity statin dose unless contraindicated. You will be required to document reason for non-treatment if statin daily dose does not meet guidelines. HIGH DOSE STATIN THERAPY DAILY Atorvastatin > than or = to 40 mg Rosuvastatin > than or = to 20 mg Amlodipine + Atorvastatin > than or = to 2.5/40 mg Ezetimibe + Simvastatin 10/80 mg Simvastatin 80mg Discharge Plan Admission Admit Date/Time: 04/09/25 15:49 Primary Reason for Your Visit: Back pain/weight loss Attending Provider: Magaly Brown Primary Care Provider: Yandel Cabrera Consulting Providers: Regine Silva; Bonnie Tucker Instructions Additional Instructions / Restrictions: 1. We will treat your postnasal drip/allergies for a week if your symptoms with regards to taste and appetite do not improve please discuss with your primary care physician and DrLynne Friend at your upcoming appointment on 04/20/2025 2. Prescription for nasal spray and the Claritin were sent to your pharmacy. Please use as directed to see if this helps with your symptoms Discharge Orders/Prescriptions Prescriptions: New fluticasone propionate 50 mcg/actuation [place],Suspension 2 spray NASAL DAILY Qty: 16 1RF loratadine [Allergy Relief (loratadine)] 10 mg tablet 10 mg PO DAILY Qty: 30 0RF lidocaine 5 % Adhesive Patch,Medicated 2 patch topical DAILY Qty: 15 0RF Protocol: *Topical Application Instructions APPLICATION INSTRUCTIONS: lumbar spine Rx Instructions: Place on low back as directed acetaminophen 500 mg Tablet 1,000 mg PO Q8 Qty: 0 0RF Rx Instructions: This amount is okay with your liver disease but do not exceed Continued ondansetron HCl 4 mg tablet 4 mg PO Q6H PRN (Reason: nausea and vomiting) carvedilol 3.125 mg tablet 3.125 mg PO BID methocarbamol 500 mg tablet 500 mg PO TID PRN (Reason: pain/spasms) Qty: 30 0RF sertraline 100 mg tablet 150 mg PO DAILY omeprazole 40 mg capsule,delayed release(DR/EC) 40 mg PO BID olanzapine 7.5 mg tablet 7.5 mg PO QHS mirabegron 50 mg tablet extended release 24 hr 50 mg PO DAILY Ozempic 2 mg/dose (8 mg/3 mL) pen injector 2 mg subcut QWEEK Patient Comments: PT TAKES ON SUNDAYS cephalexin 500 mg capsule 500 mg PO BID Qty: 14 0RF glipizide 5 mg tablet extended release 24hr 5 mg PO DAILY glipizide 2.5 mg tablet extended release 24hr 2.5 mg PO DAILY Referrals / Follow Up: Morris Miller MD [Med Staff - Active Staff] - See Referral Note (Call later today or tomorrow to set up an appointment to be seen at first availability) Kirt Perez DO [Med Staff - Active Staff] - See Referral Note (Keep scheduled appointment) Yandel Cabrera MD [Primary Care Provider] - See Referral Note (Keep scheduled appointment) Disposition Disposition (needs filled in before D/C Order can be placed): Home Health Service Charges/Coding Visit Charges Inpatient E&M: 86218 Disch Hosp >30min
[2025-04-12 14:28] VITALS: BP 115/72; PULSE 82; RESP 16; TEMP 36.8; O2SAT 97
[2025-04-12] MEDS: Acetaminophen 500 MG Tablet 1000 MG PO (14:34)
--- NOTE | 2025-04-12 15:01 | CHAPLAIN ---
Type of Pastoral Visit _x__ Initial Visit ___ Follow-up Visit ___ On-call Visit ___ General Patient Visit ___ Spiritual Assessment ___ Family Conference ___ Bereavement ___ Rapid Response ___ Code Blue ___ Other (describe below) Pastoral Care Referral From _x__ Patient ___ Family ___ Nurse ___ Physician ___ Merry Go Round Operator ___ Roof Bolter Helper ___ Other (describe below) Sacrament/Intervention _x__ Active listening ___ Anointing ___ Bahai ___ Bereavement ___ Communion _x__ Tiffany exploration ___ ___ Life review _x__ Prayer ___ Reconciliation ___ Sacrament of Sick ___ Supportive presence ___ Wedding ___ Other (describe below) Pastoral Comments patient expresses thankfulness that she will be discharged today; pt has some concern about getting into the house and having it go well there; pt lives with her spouse but he works during the day; pt mentions that her son is also a finisher special stocks in [place] and that her finisher special stocks called her to have prayer with her on the phone; pt denies further needs
== END 2025-04-12 16:27 | disposition home health service (06) | DRG 640 ==
LOC: ED 16:12 → MS3 17:11
PROVIDERS: Student in an Organized Health Care Education/Training Program; Admitting Provider Family Medicine; Emergency Provider Emergency Medicine; PCP Family Medicine; Visit Provider Internal Medicine
DX: R62.7 Adult failure to thrive (principal); E43 Unspecified severe protein-calorie malnutrition; E87.20 Acidosis, unspecified; K76.6 Portal hypertension; D69.6 Thrombocytopenia, unspecified; R13.10 Dysphagia, unspecified; K74.60 Unspecified cirrhosis of liver; F31.9 Bipolar disorder, unspecified; E11.9 Type 2 diabetes mellitus without complications; E66.9 Obesity, unspecified; M32.9 Systemic lupus erythematosus, unspecified; L40.50 Arthropathic psoriasis, unspecified; K75.4 Autoimmune hepatitis; R26.2 Difficulty in walking, not elsewhere classified; K21.9 Gastro-esophageal reflux disease without esophagitis; K75.81 Nonalcoholic steatohepatitis (NASH); M54.50 Low back pain, unspecified; R53.81 Other malaise; R29.898 Other symptoms and signs involving the musculoskeletal system; Z87.891 Personal history of nicotine dependence; Z79.85 Long-term (current) use of injectable non-insulin antidiabetic drugs; Z79.84 Long term (current) use of oral hypoglycemic drugs; Z90.710 Acquired absence of both cervix and uterus; Z68.35 Body mass index [BMI] 35.0-35.9, adult; G89.29 Other chronic pain
CPT/HCPCS: 36415; 72148; 80048; 80053; 81001; 82962; 85025; 85610; 92526; 92610; 97110; 97116; 97162; 97166; 97530; 97535; 97802; 99285; P9612; A4216; J2405